=== PATIENT | female | born 1950 | race African-American/Black ===

== ENCOUNTER 2019-10-16 13:18 | Outpatient (CLI) | payer MEDICARE, OTHER, SELFPAY ==
[2019-10-16 14:42] LABS: Albumin Level 3.7 g/dL (3.5-5.1); Anion Gap 6 mmol/L (8-16); Blood Urea Nitrogen 46 mg/dL (7-17); Carbon Dioxide 32 mmol/L (22-30); Chloride 103 mmol/L (98-107); Estimated Glomerular Filt Rate 23; Glucose 242 mg/dL (65-105); Phosphorus 3.9 mg/dL (2.5-4.5); Potassium 3.9 mmol/L (3.4-5.0); Sodium 141 mmol/L (137-145)
[2019-10-16 14:56] LABS: Creatinine Urine 34.5 mg/dL
[2019-10-16 15:22] LABS: Total Protein Urine Random 255 mg/dL
== END 2019-10-16 13:19 | disposition home or self-care (01) ==
PROVIDERS: PCP Family Medicine; Visit Provider Internal Medicine Nephrology
DX: N18.3 Chronic kidney disease, stage 3 (moderate) (principal)
CPT/HCPCS: 36415; 80069; 82570; 84156

== ENCOUNTER 2020-01-14 13:34 | Outpatient (CLI) | payer MEDICARE, OTHER, SELFPAY ==
[2020-01-14 14:16] LABS: Creatinine Urine 47.2 mg/dL
[2020-01-14 14:18] LABS: Albumin Level 3.8 g/dL (3.5-5.1); Anion Gap 6 mmol/L (8-16); Blood Urea Nitrogen 39 mg/dL (7-17); Calcium 9.3 mg/dL (8.4-10.2); Carbon Dioxide 29 mmol/L (22-30); Chloride 105 mmol/L (98-107); Estimated Glomerular Filt Rate 30; Glucose 323 mg/dL (65-105); Phosphorus 3.7 mg/dL (2.5-4.5); Potassium 4.4 mmol/L (3.4-5.0); Sodium 140 mmol/L (137-145)
[2020-01-14 14:27] LABS: Total Protein Urine Random 261 mg/dL
== END 2020-01-14 13:35 | disposition home or self-care (01) ==
LOC: ANHLAB 13:39
PROVIDERS: PCP Family Medicine; Visit Provider Internal Medicine Nephrology
DX: N18.4 Chronic kidney disease, stage 4 (severe) (principal)
CPT/HCPCS: 36415; 80069; 82570; 84156

== ENCOUNTER 2020-03-06 06:54 | Outpatient (NON) | payer MEDICARE, OTHER, SELFPAY ==
[2020-03-06 21:48] LABS: SARS-CoV-2 RNA PCR Negative
== END 2020-03-06 06:55 ==
LOC: ANHCOVIDDT 06:59
PROVIDERS: PCP Family Medicine; Visit Provider Nurse Practitioner Adult Health
DX: R68.89 Other general symptoms and signs (principal); Z20.828 Contact with and (suspected) exposure to other viral communicable diseases
CPT/HCPCS: 87635; C9803; U0003

== ENCOUNTER 2020-03-25 19:30 | Inpatient (IN) | payer MEDICARE, OTHER, SELFPAY ==
[2020-03-25] VITALS (8 sets, daily range): BP systolic 135–165; BP diastolic 83–111; PULSE 111–136; RESP 14–32; TEMP 36.6–37; O2SAT 94–98; BMI 51.3
--- NOTE | ~2020-03-25 | XR_ITS ---
EXAMINATION: XR chest 1V portable INDICATION: Shortness of breath and weakness TECHNIQUE: Portable AP chest at 1957 hours COMPARISON: 02/13/2018 FINDINGS: There are patchy interstitial and airspace opacities throughout all lung zones. No pleural effusion or pneumothorax is identified. The cardiomediastinal silhouette is normal for technique. The visualized osseous structures are unremarkable. IMPRESSION: 1. Diffuse lung disease, consistent with pneumonia and/or pulmonary edema and/or atelectasis. Reviewed, dictated and finalized at location A. BUSINESS OBJECTS DEVELOPER IMPRESSION: 1. Diffuse lung disease, consistent with pneumonia and/or pulmonary edema and/o r atelectasis.
--- NOTE | ~2020-03-25 | US_ITS ---
EXAMINATION: US renal BI EXAM DATE: 03/28/2020 08:34 INDICATION: Chronic kidney disease. TECHNIQUE: Multiple grayscale and Doppler images of the kidneys were obtained (by a technologist who performed the scan) and subsequently reviewed. Comparison is made to prior examination from 11/29/2017 . FINDINGS: Right kidney: There is normal contour and echogenicity. It measures 11.0 x 4.4 x 5.7 centimeters. An echoic right renal cystic lesion most likely cyst measuring 5.7 x 3.6 x 3.5 cm. There is no hydrone phrosis. Left kidney: There is normal contour and echogenicity. It measures 10.7 x 6.4 x 5.5 centimeters. Th ere are no focal renal lesions identified. There is no hydronephrosis. Bladder unremarkable. Bilateral ureteral jets were identified. IMPRESSION: 1. Right renal lesion most likely cysts. Reviewed, dictated and finalized at location A. POINTER HELPER
--- NOTE | 2020-03-25 19:42 | ECG_ITS ---
Measurements Intervals [place] Rate: 138 P: MT: 0 QRS: 21 QRSD: 88 T: -12 QT: 364 QTc: 553 Interpretive Statements ATRIAL FIBRILLATION WITH RAPID VENTRICULAR RESPONSE INCOMPLETE RIGHT BUNDLE BRANCH BLOCK BORDERLINE T WAVE ABNORMALITY- INFERIOR LEADS ABNORMAL ECG Electronically Signed On 03-25-2020 21:46:44 MACHINE UMBRELLA TIPPER by Garrett Bucio D.O.
--- NOTE | 2020-03-25 19:44 | ED.GENADULT ---
HPI - General Adult General Chief complaint: Arrhythmia/Palpitations Stated complaint: weakness, elevated pulse, low o2 Source: patient History of Present Illness HPI narrative: Patient is a 69 y/o female complaining fast pulse rate for about 1 week. She states that her heart rate goes to 140s. There is no alleviating or exacerbating factor. She also has some slight chest pain and SOB. She states that her home pulse shows her sat is low sometimes in 80s. She states that she has history A fib. Related Data Home Medications Medication Instructions Recorded Confirmed aspirin 81 mg tablet,delayed 81 mg PO DAILY 03/08/19 07/02/19 release ferrous sulfate 325 mg (65 mg 325 mg PO BID 03/08/19 07/02/19 iron) tablet furosemide 40 mg tablet 40 mg PO QAM 03/08/19 07/02/19 insulin aspar prot-insulin aspart 5 unit SUB-Q BID 03/08/19 07/02/19 100 unit/mL (70-30) subcutaneous pen insulin glargine 100 unit/mL (3 30 unit SUB-Q DAILY 03/08/19 07/02/19 mL) subcutaneous pen simvastatin 20 mg tablet 20 mg PO DAILY 03/08/19 07/02/19 brimonidine 0.2 %-timolol 0.5 % 1 drop EACH EYE Q12H 05/01/19 07/02/19 eye drops rivaroxaban 20 mg tablet 20 mg PO DAILY 05/01/19 07/02/19 losartan 100 mg tablet 150 mg PO DAILY tablet 07/02/19 07/02/19 alendronate-vitamin D3 03/25/20 irbesartan 300 mg PO DAILY 03/25/20 03/25/20 metoprolol tartrate 50 mg PO BID 03/25/20 03/25/20 Allergies Allergy/AdvReac Type Severity Reaction Status Date / Time lisinopril Allergy Unknown dizziness Verified 07/02/19 13:20 clopidogrel AdvReac Intermediate unkn own Verified 07/02/19 13:20 Review of Systems Constitutional: Constitutional: Denies chills, Denies fever(s), Denies headache(s) and Denies weakness Eyes: Eyes: Denies blurry vision ENT: Denies headache(s) and Denies neck pain Cardiovascular: Cardiovascular: Reports chest pain, Reports rapid heart rate and Reports dyspnea Respiratory: Respiratory: Denies cough and Reports dyspnea Gastrointestinal: Gastrointestinal: Denies abdominal pain, Denies diarrhea, Denies nausea and Denies vomiting Genitourinary: Genitourinary: Denies hematuria and Denies dysuria Musculoskeletal: Musculoskeletal: Denies back pain and Denies neck pain Neurologic: Denies headache(s) and Denies weakness [facility] Past Medical History Medical History Arthritis Diabetes mellitus Essential hypertension Glaucoma H/O: HTN (hypertension) History of glucose tolerance testing Family History Family History Mother , heart attack Diabetes mellitus Father Diabetes mellitus Cerebrovascular accident Leukemia Social History Social History Smoking status: Never smoker Exam Const: General: no acute distress and well developed Orientation/consciousness: oriented to person, oriented to place, oriented to time and patient oriented x3 HENMT: Head: normocephalic Ears: external ears normal General nose exam: Normal external nose present Eyes: General: appearance normal, both eyes and all related structures Conjunctivae: conjunctivae normal Neck: Neck: normal visual inspection and full ROM Chest: Chest palpation & inspection: normal inspection of the chest and no tenderness Resp: Effort & Inspection: normal respiratory effort Auscultation: clear to auscultation bilaterally Cardio: Rate: tachycardic Rhythm: abnormal rhythm irregularly irregular GI: GI Palp: No abdominal tenderness and Yes Soft to palpation Skin: General skin exam: normal color and turgor normal Neuro: General: oriented to person, oriented to place, oriented to time and patient oriented x3 Cognition (Neuro): normal cognition Extrem: General: normal to inspection, full ROM and no pedal edema Psych: Appearance: grossly normal Mental Status: mental status grossly n
[2020-03-25] MEDS: dilTIAZem HCl INJ 25 MG/5 ML VIAL 10 MG IV PUSH (20:05)
[2020-03-25 20:10] LABS: Basophils Percent Auto 0.1 % (0.2-1.2); Eosinophils Absolute Auto 0.1 K/mm3 (0-0.3); Eosinophils Percent Auto 0.7 % (0-4.4); Hematocrit 37.7 % (37.0-47.0); Hemoglobin 12.1 g/dL (12.0-15.0); Immature Granulocyte Absolute 0.02 K/mm3 (0.00-0.031); Immature Granulocyte Percent A 0.3 % (0-0.5); Lymphocytes Absolute Auto 1.13 K/mm3 (0.9-3.2); Lymphocytes Percent Auto 16.8 % (18.3-44.2); Mean Corpuscular HGB Conc 32.1 g/dl (32-36); Mean Corpuscular Hemoglobin 25.7 pg (26-34); Mean Corpuscular Volume 80.2 fl (80-100); Mean Platelet Volume 10.5 fl (7.4-10.4); Monocytes Absolute Auto 0.6 K/mm3 (0.1-0.6); Monocytes Percent Auto 8.6 % (2.6-8.5); Neutrophils Absolute Auto 4.9 K/mm3 (1.3-6.7); Neutrophils Percent Auto 73.5 % (45.5-73.1); Platelet Count Result 173 k/mm3 (150-375); Red Cell Distribution Width 14.3 % (11.5-14.5); White Blood Count 6.7 K/mm3 (4.5-10.0)
[2020-03-25 20:20] LABS: INR 1.2; Prothrombin Time 15.4 Seconds (11.1-14.7)
[2020-03-25 20:21] LABS: Partial Thromboplastin Time 27.4 SECONDS (22.3-36.8)
[2020-03-25 20:25] LABS: Alanine Aminotransferase 24 U/L (4-35); Albumin Level 3.6 g/dL (3.5-5.1); Alkaline Phosphatase 83 U/L (38-126); Anion Gap 7 mmol/L (8-16); Aspartate Amino Transferase 20 U/L (14-36); Bilirubin,Total 0.7 mg/dL (0.2-1.3); Blood Urea Nitrogen 43 mg/dL (7-17); Calcium 9.8 mg/dL (8.4-10.2); Carbon Dioxide 26 mmol/L (22-30); Chloride 106 mmol/L (98-107); Estimated CRCL calculation 35 ml/min; Estimated Glomerular Filt Rate 30; Glucose 320 mg/dL (65-105); Potassium 3.9 mmol/L (3.4-5.0); Sodium 139 mmol/L (137-145)
[2020-03-25 20:37] LABS: NT Pro B Type Natriuretic Pept 8130 PG/ML (5-100); Troponin I < 0.012 ng/mL (0.000-0.034)
--- NOTE | 2020-03-25 21:25 | PM.IMHP ---
H&P: HPI History of Present Illness Date/Time: 03/25/20 21:25 Chief Complaint: Elevated heart rate for 1 week duration Narrative: This is a pleasant 69 year old diabetic female with known chronic atrial fibrillation on Xarelto therapy, CKD stage III, and HTN who presented to the hospital with a complaint of elevated heart rate for one week duration. She has noticed that her heart rate has been as high as the 140s at rest. She has also noticed increased peripheral swelling and worsening shortness of breath over the past few weeks. She has severe dyspnea with any exertion and mentions that just going to the bathroom leads to increased shortness of breath and tachycardia. Over the past weekend she also experienced midsternal chest pain although this has now resolved. She denies any fevers, chills, coughing, sore throat, headache, nausea, vomiting, abdominal pain, dysuria, diarrhea, or rectal bleeding. The patient was started on Cardizem IV for rate control in the ER tonight after she was found to be in atrial fibrillation w/ RVR. She was also treated with a dose of IV lasix and swabbed for COVID-19. No other complaints. Review of Systems Review of Systems: All systems reviewed & are unremarkable except as noted in HPI and below PMFSH Past Medical History Medical History Arthritis Diabetes mellitus Essential hypertension Glaucoma H/O: HTN (hypertension) History of glucose tolerance testing Family History Family History Mother , heart attack Diabetes mellitus Father Diabetes mellitus Cerebrovascular accident Leukemia Social History Social History Smoking status: Never smoker Alcohol intake: never Substance use: never Spiritual care concerns: No Comments Denies any previous surgeries Meds Home Medications and Allergies Home Medications Medication Instructions Recorded Confirmed Type aspirin 81 mg tablet,delayed 81 mg PO DAILY 03/08/19 03/25/20 History release ferrous sulfate 325 mg (65 mg 325 mg PO BID 03/08/19 03/25/20 History iron) tablet furosemide 40 mg tablet 40 mg PO QAM 03/08/19 03/25/20 History insulin aspar prot-insulin aspart 20 unit SUB-Q BID 03/08/19 03/25/20 History 100 unit/mL (70-30) subcutaneous pen insulin glargine 100 unit/mL (3 30 unit SUB-Q DAILY 03/08/19 03/25/20 History mL) subcutaneous pen simvastatin 20 mg tablet 20 mg PO DAILY 03/08/19 03/25/20 History brimonidine 0.2 %-timolol 0.5 % 1 drop EACH EYE Q12H 05/01/19 03/25/20 History eye drops rivaroxaban 20 mg tablet 20 mg PO DAILY 05/01/19 03/25/20 History losartan 100 mg tablet 150 mg PO DAILY tablet 07/02/19 03/25/20 History irbesartan 300 mg PO DAILY 03/25/20 03/25/20 History metoprolol tartrate 50 mg PO BID 03/25/20 03/25/20 History Allergies Allergy/AdvReac Type Severity Reaction Status Date / Time lisinopril Allergy Unknown dizziness Verified 07/02/19 13:20 clopidogrel AdvReac Intermediate unkn own Verified 07/02/19 13:20 Vital Signs Vital Signs - 24 hr 03/25/20 19:40 03/25/20 20:06 03/25/20 20:26 Temperature 37.0 C Pulse Rate 134 H 131 H 111 H Respiratory Rate 14 22 H Blood Pressure 165/111 H 165/111 H 135/83 Pulse Oximetry 98 98 Exam Const: General: cooperative, no acute distress, alert, awake and ill appearing chronically Nutritional Appearance: well nourished Orientation/consciousness: patient oriented x3 HENMT: Head: normal to inspection General nose exam: Normal external nose present Face and sinus: normal facial exam Mouth: Yes Normal oral and palatal mucosa present and Yes oropharynx normal Eyes: Pupils: Equal, round and reactive pupils present EOM: EOMs intact bilaterally Neck: Neck: supple and no JVD Thyroid: thyroid normal Lymphatic: lymphadenopathy not not
[2020-03-25] MEDS: FUROSEMIDE INJ 40 MG/4 ML VIAL IV PUSH (22:39)
--- NOTE | 2020-03-25 23:26 | ADMGEN ---
This patient, Shaniqua Oakley, was admitted to IMU Room 203-01, arrived at approximately 2320 Patient/family oriented to hospital policies and general routines including ID bracelet, bed and alarms, visiting hours, pain management, procedures, bathroom and other care routines, personal items, smoking policy, room service/diet, and visiting hours. Information on how to activate the Rapid Response Team has been discussed. Patient/Family are encouraged to report perceived risks to care and to ask questions if they do not understand what they are told or what they should do. Received report from TARSHA Patel
[2020-03-26] VITALS (20 sets, daily range): BP systolic 102–133; BP diastolic 59–77; PULSE 68–138; RESP 16–22; TEMP 35.8–37.2; O2SAT 95–100
[2020-03-26 00:13] LABS: Troponin I < 0.012 ng/mL (0.000-0.034)
[2020-03-26 03:02] LABS: Basophils Percent Auto 0.3 % (0.2-1.2); Eosinophils Absolute Auto 0.1 K/mm3 (0-0.3); Eosinophils Percent Auto 1.3 % (0-4.4); Hematocrit 35.3 % (37.0-47.0); Hemoglobin 11.4 g/dL (12.0-15.0); Immature Granulocyte Absolute 0.03 K/mm3 (0.00-0.031); Immature Granulocyte Percent A 0.4 % (0-0.5); Lymphocytes Absolute Auto 1.24 K/mm3 (0.9-3.2); Lymphocytes Percent Auto 17.9 % (18.3-44.2); Mean Corpuscular HGB Conc 32.3 g/dl (32-36); Mean Corpuscular Hemoglobin 25.7 pg (26-34); Mean Corpuscular Volume 79.7 fl (80-100); Mean Platelet Volume 11.4 fl (7.4-10.4); Monocytes Absolute Auto 0.5 K/mm3 (0.1-0.6); Monocytes Percent Auto 7.8 % (2.6-8.5); Neutrophils Percent Auto 72.3 % (45.5-73.1); Platelet Count Result 168 k/mm3 (150-375); Red Blood Count 4.43 M/mm3 (4.2-5.4); Red Cell Distribution Width 14.3 % (11.5-14.5); White Blood Count 6.9 K/mm3 (4.5-10.0)
[2020-03-26 03:16] LABS: Anion Gap 6 mmol/L (8-16); Blood Urea Nitrogen 43 mg/dL (7-17); Calcium 9.1 mg/dL (8.4-10.2); Carbon Dioxide 28 mmol/L (22-30); Chloride 106 mmol/L (98-107); Estimated CRCL calculation 35 ml/min; Estimated Glomerular Filt Rate 30; Glucose 365 mg/dL (65-105); Magnesium 1.8 mg/dL (1.6-2.3); Potassium 3.8 mmol/L (3.4-5.0); Sodium 140 mmol/L (137-145)
[2020-03-26 03:28] LABS: Troponin I < 0.012 ng/mL (0.000-0.034)
[2020-03-26 04:19] LABS: Thyroid Stimulating Hormone Reflex < 0.015 uIU/mL (0.465-4.68)
[2020-03-26 05:13] LABS: Free T4 Free Thyroxine Reflex 5.47 ng/dL (0.78-2.19)
[2020-03-26 05:40] LABS: Glucose Point of Care 393 (65-105)
[2020-03-26] MEDS: ACETAMINOPHEN 325 MG TABLET 650 MG PO (06:45)
[2020-03-26] MEDS: FUROSEMIDE INJ 40 MG/4 ML VIAL IV PUSH (09:08)
[2020-03-26] MEDS: ASPIRIN 81 MG ENTERIC TABLET PO (09:08)
[2020-03-26] MEDS: FERROUS SULFATE 324 MG TABLET PO ×2 (09:08→16:29)
[2020-03-26] MEDS: SIMVASTATIN 20 MG TABLET PO (09:08)
[2020-03-26 09:46] LABS: Glucose Point of Care 344 (65-105)
--- NOTE | 2020-03-26 10:15 | PM.CNCAR ---
Assessment and Plan Additional Plan 69-year-old black female with: Longstanding history of paroxysmal atrial fibrillation. Up till this point the plan that Dr. Gambino has had in the office was to pursue rhythm control rather than simple rate control. She is currently on metoprolol and Xarelto and in atrial fib that seems to be persistent since she has been in the hospital. I am going to attempt to transition her to oral sotalol in hopes of better controlling her rhythm. In the setting of AFib that is driven by untreated sleep apnea the success of achieving and maintaining sinus rhythm is however significantly reduced. I did explain this to the patient at the time of this consultation. She says that she is getting a CPAP cleaning device delivered to her home soon and will hopefully be able to soon resume using her CPAP therapy. We will follow her rhythm with you during this hospital stay. Obviously she needs to be maintained on Xarelto for systemic anticoagulation. Eric Hall MD [facility] History of Present Illness History of Present Illness Consult date/time: 03/26/20 10:15 Consult reason: atrial fibrillation Reason For Visit: a fib with rvr Narrative: This is a 69-year-old patient I am seeing at the request of the hospitalist for assistance with evaluation and management of atrial fibrillation. I do not believe I have seen this lady in the past but she is a chronic longstanding patient of Dr. Gambino of our practice. She is seen and followed in the office because of atrial fibrillation. She carries the diagnosis of paroxysmal atrial fibrillation which upon extensive workup has been shown to be the result of obstructive sleep apnea/obesity. The patient has a established history of this and has not really been compliant with CPAP treatment. The notes in the current hospital chart referred to the patient having chronic atrial fibrillation at the current time her diagnosis in our office has been paroxysmal atrial fibrillation. The patient was last seen in our office in February of 2020 and at that time was in sinus rhythm. A recent Holter monitor demonstrated evidence of mostly sinus rhythm but with evidence of some paroxysmal AF as well. Her current medical regimen has been metoprolol and Xarelto. Echocardiography done as recently as October of 2019 demonstrates normal left ventricular size and function she has moderate global concentric LVH and no significant valvular disease. She has no history of ischemic heart disease. Patient was hospitalized last evening with sense of tachycardia palpitations and increasing shortness of breath. She was placed of course on intravenous diltiazem to attempt to provide some heart rate control her baseline metoprolol was not prescribed. In the past the records indicate she was treated with amiodarone for her rhythm which was discontinued in the last year or so after being seen in the office by the nurse practitioner. The notes do not specify this reason for the discontinuance of the amiodarone. In this setting I am seeing the patient in consultation she is pleasant cooperative and comfortable and offers no other complaints currently. She appears to be in no distress of any sort at the moment Review of Systems Constitutional: Constitutional: Reports lethargy Eyes: Eyes: Reports no additional eye complaints ENT: Reports system reviewed and no additional complaints, except as documented Cardiovascular: Cardiovascular: Reports palpitations Respiratory: Respiratory: Reports dyspnea Gastrointestinal: Gastrointestinal: Reports diarrhea Musculoskeletal: Musculoskeletal: Reports no additional musculoskeletal complaints Integumentary/Breasts: Skin/Breast: Reports system reviewed and no additional complaints, except as docu Neurologic: Reports system reviewed and no additional complaints, except as documented Endocrine: Endocrine: Reports no additional endocrine complaints Allergic/Immunologic: All
[2020-03-26] MEDS: SOTALOL HCL 80 MG TABLET PO ×2 (11:33→20:29)
[2020-03-26] MEDS: INSULIN ASPART (*BKC) 100 UNITS/ML SUB-Q ×2 (12:35→16:30)
[2020-03-26 12:44] LABS: Glucose Point of Care 400 (65-105)
--- NOTE | 2020-03-26 14:08 | ECG_ITS ---
Measurements Intervals [place] Rate: 113 P: IA: 0 QRS: 48 QRSD: 86 T: 12 QT: 349 QTc: 479 Interpretive Statements ATRIAL FIBRILLATION WITH RAPID VENTRICULAR RESPONSE INCOMPLETE RIGHT BUNDLE BRANCH BLOCK NONSPECIFIC ST & T-WAVE ABNORMALITY- DIFFUSE LEADS ABNORMAL ECG Electronically Signed On 03-26-2020 15:07:59 CLINICAL HAEMATOLOGIST by Garrett Bucio D.O.
[2020-03-26] MEDS: RIVAROXABAN 20 MG TABLET PO (16:29)
--- NOTE | 2020-03-26 16:56 | PM.IMPN ---
Progress Note: A&P Assessment and Plan (1) Atrial fibrillation with rapid ventricular response: Code(s): I48.91 - Unspecified atrial fibrillation Status: Acute Assessment and Plan: On Telemetry Holter monitoring done recently Appreciate Cardiology note. (2) CKD (chronic kidney disease): Qualifiers: Chronic kidney disease stage: unspecified stage Qualified Code(s): N18.9 - Chronic kidney disease, unspecified Code(s): N18.9 - Chronic kidney disease, unspecified Status: Acute Assessment and Plan: Continue to monitor Bun/Cr Daily BMP Avoid nephrotoxins (3) Suspected 2019 novel coronavirus infection: Code(s): Z20.822 - Contact with and (suspected) exposure to COVID-19 Status: Acute Assessment and Plan: Ruling out serology is pending. (4) Essential hypertension: Code(s): I10 - Essential (primary) hypertension Status: Chronic Assessment and Plan: Resume home meds Continue to monitor. (5) Body mass index (BMI) of 50-59.9 in adult: Onset Date: 11/27/18 Code(s): Z68.43 - Body mass index [BMI] 50.0-59.9, adult Status: Acute Assessment and Plan: Calorie restricted diet Life style and diet modifications. (6) Diastolic CHF: Qualifiers: Heart failure chronicity: acute on chronic Qualified Code(s): I50.33 - Acute on chronic diastolic (congestive) heart failure Code(s): I50.30 - Unspecified diastolic (congestive) heart failure Status: Acute Assessment and Plan: Does not appear to be decompensated. (7) Pulmonary hypertension: Code(s): I27.20 - Pulmonary hypertension, unspecified Status: Acute Assessment and Plan: Patient on CPAP (8) KIERRA (obstructive sleep apnea): Code(s): G47.33 - Obstructive sleep apnea (adult) (pediatric) Status: Acute Assessment and Plan: CPAP at night time (9) Restrictive lung disease: Code(s): J98.4 - Other disorders of lung Status: Acute Assessment and Plan: Morbid obesity Lifestyle and diet modifications. Subjective Date/time seen: 03/26/20 16:56 I feel fine. Review of Systems Review of Systems: Narrative: Denies any complains at this time. Constitutional: Comments: no fevers, no chills, no rigors. ENT: Comments: no ear ache, no throat pain, no nasal discharge. Cardiovascular: Comments: Fast heart rate, chest discomfort. Respiratory: Comments: sob. Gastrointestinal: Comments: no n/v/abdominal pain. Musculoskeletal: Comments: no muscle aches or pain. Integumentary/Breasts: Comments: no rashes. Neurologic: Comments: no sensory motor deficit. Exam Narrative: Exam Narrative: Lying in bed. Const: General: comfortable, no acute distress, alert, awake and Physically active Nutritional Appearance: overweight Orientation/consciousness: patient oriented x3 Limitations: no limitations HENMT: Head: normocephalic Ears: hearing grossly normal bilaterally General nose exam: Normal external nose present Face and sinus: normal facial exam Eyes: General: appearance normal, both eyes and all related structures Pupils: Equal, round and reactive pupils present EOM: EOMs intact bilaterally Neck: Neck: no lymphadenopathy, supple and no JVD Resp: Effort & Inspection: normal respiratory effort Auscultation: clear to auscultation bilaterally Cardio: Jugular venous distension: no JVD Rhythm: abnormal rhythm irregularly irregular GI: GI Palp: Yes Soft to palpation and Yes No hepatosplenomegaly present Skin: Rashes: no rashes Neuro: General: patient oriented x3 Cranial nerves: Yes CN's II-XII intact bilaterally and Yes Equal, round and reactive pupils present Cognition (Neuro): normal cognition Speech: normal speech Motor exam (neuro): 5/5 motor strength present throughout Extrem: General: no pedal edema Objective Data Vital Signs Vital Signs: Vital Signs - 24 hr 03/25/20
[2020-03-26 17:28] LABS: SARS-CoV-2 RNA PCR Negative
[2020-03-26 17:59] LABS: Glucose Point of Care 225 (65-105)
[2020-03-26 20:45] LABS: Glucose Point of Care 199 (65-105)
[2020-03-26 21:51] LABS: Glucose Point of Care 189 (65-105)
[2020-03-27] VITALS (15 sets, daily range): BP systolic 120–152; BP diastolic 57–71; PULSE 55–115; RESP 18–24; TEMP 36.2–36.6; O2SAT 92–97
--- NOTE | 2020-03-27 | ECHO_ITS ---
Patient Info Name: Shaniqua Oakley Age: 69 years : 1950 Gender: Female Ht: 65 in Wt: 308 lbs BSA: 2.62 m2 HR: 70 bpm BP: 120 / 57 mmHg Heart Rhythm: Sinus Rhythm Technical Quality: Good Exam Date: 03/27/2020 8:27 AM Exam Location: [facility] Patient Status: Inpatient Admit Date: 03/25/2020 Staff Ordering Physician: Charles Miranda MD Plastic Sheets Supervisor: Benjie Wylie RDCS, RT Attending Provider: Charles Miranda MD Referring Physician: Ruth ELIZONDO; Exam Type: CA echo doppler color flow Study Info Indications I48.1 - Persistent atrial fibrillation Complete two-dimensional, color flow and Doppler transthoracic echocardiogram is performed. Summary 1. Complete two-dimensional, color flow and Doppler transthoracic echocardiogram is performed. 2. Normal left ventricular size with mild concentric left ventricular hypertrophy. Normal left ventricular systolic function with a visual ejection fraction 55-60% and a calculated ejection fraction of 55%. No segmental wall motion abnormalities. Grade 2 diastolic dysfunction is present. 3. Left atrial chamber dimension is mildly enlarged. 4. There is moderate mitral valve regurgitation. 5. There is moderate tricuspid valve regurgitation. 6. Moderate pulmonary hypertension, estimated pulmonary arterial systolic pressure is 56 mmHg. 7. Dilated inferior vena cava with <50% collapse upon inspiration consistent with elevated right atrial pressure, 15 mmHg. 8. Technically difficult study; the endocardium was not well seen in all views. 9. Normal sinus rhythm. Left Ventricle Left ventricular chamber dimension is normal. Left ventricular systolic function is normal, estimated at 55-60%. There is mildly increased left ventricular wall thickness. Left ventricular septal wall motion is normal. The left ventricular diastolic function is grade II diastolic dysfunction. Right Ventricle Right ventricular chamber dimension is normal. Right ventricular systolic function is normal. Left Atria Left atrial chamber dimension is mildly enlarged. Right Atria Right atrial chamber dimension is normal. Aortic Valve The aortic valve is trileaflet. There is mild aortic valve sclerosis. There is no aortic valve stenosis. There is no aortic valve regurgitation. Pulmonic Valve The pulmonic valve is normal. There is no pulmonic valve stenosis. There is trace pulmonic regurgitation. Mitral Valve The mitral valve has calcified annulus. There is no mitral valve stenosis. There is moderate mitral valve regurgitation. Tricuspid Valve The tricuspid valve leaflets are normal. There is no significant tricuspid valve stenosis. There is moderate tricuspid valve regurgitation. Moderate pulmonary hypertension, estimated pulmonary arterial systolic pressure is 56 mmHg. Pericardium/Pleural The pericardium appears normal. There is no pericardial effusion. Inferior Vena Cava Dilated inferior vena cava with <50% collapse upon inspiration consistent with elevated right atrial pressure, 15 mmHg. Aorta The aortic root size at the sinus of Valsalva is normal. The prox ascending aorta size is normal. Left Ventricular Outflow Tract Name Value Normal LVOT 2D LVOT Diameter
--- NOTE | 2020-03-27 02:43 | ECG_ITS ---
Measurements Intervals [place] Rate: 67 P: 36 AR: 173 QRS: 33 QRSD: 94 T: 13 QT: 444 QTc: 471 Interpretive Statements SINUS RHYTHM ATRIAL PREMATURE COMPLEX INCOMPLETE RIGHT BUNDLE BRANCH BLOCK NONSPECIFIC T-WAVE ABNORMALITY- ANT/INF LEADS BASELINE ARTIFACT- V4 BORDERLINE ECG Electronically Signed On 03-27-2020 10:29:57 REVIEW NURSE by Garrett Bucio D.O.
--- NOTE | 2020-03-27 07:00 | ECG_ITS ---
Measurements Intervals [place] Rate: 115 P: [place]: 0 QRS: 58 QRSD: 90 T: 27 QT: 364 QTc: 504 Interpretive Statements ATRIAL FIBRILLATION WITH RAPID VENTRICULAR RESPONSE INCOMPLETE RIGHT BUNDLE BRANCH BLOCK NONSPECIFIC T-WAVE ABNORMALITY- DIFFUSE LEADS ABNORMAL ECG Electronically Signed On 03-27-2020 10:26:01 SPOOL MAKER by Garrett Bucio D.O.
--- NOTE | 2020-03-27 09:40 | PM.PNCARD ---
Progress Note: A&P Assessment and Plan (1) Atrial fibrillation with rapid ventricular response: Code(s): I48.91 - Unspecified atrial fibrillation Status: Acute Assessment and Plan: Was started on sotalol 80 mg b.i.d.. She was started on the sotalol on 03/26 Next does this morning. Order EKG before giving the sotalol this morning. I will measure the QTC interval this morning. on review of telemetry She had a 3.6 seconds pause at 3:00 a.m. this morning. I believe it is related to sleep apnea. She will need CPAP at night. She has CPAP at home but has not used it for a year. Continue Xarelto (2) CHF (congestive heart failure): Qualifiers: Heart failure chronicity: unspecified Heart failure type: unspecified Qualified Code(s): I50.9 - Heart failure, unspecified Code(s): I50.9 - Heart failure, unspecified Status: Acute Assessment and Plan: Continue IV Lasix. Obtain electrolytes and magnesium check. (3) Essential hypertension: Code(s): I10 - Essential (primary) hypertension Status: Chronic Assessment and Plan: Blood pressure is controlled. She used to take irbesartan (4) KIERRA (obstructive sleep apnea): Code(s): G47.33 - Obstructive sleep apnea (adult) (pediatric) Status: Acute Assessment and Plan: Encourage CPAP use Subjective Date/time seen: 03/27/20 09:40 Review of Systems Constitutional: Constitutional: Reports lethargy Eyes: Eyes: Reports no additional eye complaints ENT: Reports system reviewed and no additional complaints, except as documented Cardiovascular: Cardiovascular: Reports palpitations and Reports dyspnea Respiratory: Respiratory: Reports dyspnea Gastrointestinal: Gastrointestinal: Reports diarrhea Musculoskeletal: Musculoskeletal: Reports no additional musculoskeletal complaints Integumentary/Breasts: Skin/Breast: Reports system reviewed and no additional complaints, except as docu Neurologic: Reports system reviewed and no additional complaints, except as documented Endocrine: Endocrine: Reports no additional endocrine complaints and Reports palpitations Allergic/Immunologic: Allergic/Immunologic: Reports no additional allergic/immunologic complaints Exam Const: General: comfortable and no acute distress Other: Morbidly obese black female comfortable cooperative in no distress of any sort BMI is 51.4 HENMT: Mouth: Yes moist mucous membranes Eyes: Sclera: sclerae normal Pupils: Equal, round and reactive pupils present Neck: Neck: no JVD Thyroid: thyroid normal Other: Carotid upstrokes are intact there are no bruits audible over the neck Resp: Effort & Inspection: normal respiratory effort Auscultation: clear to auscultation bilaterally Other: Breath sounds are distant because of her body habitus but otherwise clear no rales no rhonchi no wheezing Cardio: Rhythm: abnormal rhythm irregularly irregular GI: Auscultation: normal bowel sounds Skin: General skin exam: normal color Neuro: Cranial nerves: Yes Equal, round and reactive pupils present Cognition (Neuro): normal cognition Extrem: General: normal to inspection Objective Data Vital Signs Vital Signs: Vital Signs - 24 hr 03/26/20 09:44 03/26/20 10:00 03/26/20 11:33 Temperature Pulse Rate 135 H 133 H Respiratory Rate Blood Pressure Pulse Oximetry 95 03/26/20 11:35 03/26/20 12:00 03/26/20 12:50 Temperature 37.2 C 35.8 C L Pulse Rate 132 H 132 H 125 H Respiratory Rate 16 22 H Blood Pressure 115/65 110/65 Pulse Oximetry 100 95 03/26/20 14:00 03/26/20 16:00 03/26/20 17:11 Temperature 36.0 C L Pulse Rate 118 H 112 H 111 H Respiratory Rate 22 H Blood Pressure 121/77 Pulse Oximetry 96 03/26/20 18:00 03/26/20 20:00 03/26/20 20:29 Temperature 36.7 C Pulse Rate 121 H 118 H 126 H Respiratory Rate 20 Blood Pressure 102/62 Pulse Oximetry 98 03/26/20 22:00 03/27/20 00:00 03/27
[2020-03-27 10:21] LABS: Anion Gap 5 mmol/L (8-16); Blood Urea Nitrogen 49 mg/dL (7-17); Calcium 9.6 mg/dL (8.4-10.2); Carbon Dioxide 28 mmol/L (22-30); Chloride 109 mmol/L (98-107); Estimated CRCL calculation 28 ml/min; Estimated Glomerular Filt Rate 23; Glucose 143 mg/dL (65-105); Potassium 4.2 mmol/L (3.4-5.0); Sodium 142 mmol/L (137-145)
[2020-03-27] MEDS: ASPIRIN 81 MG ENTERIC TABLET PO (10:44)
[2020-03-27] MEDS: FUROSEMIDE INJ 40 MG/4 ML VIAL IV PUSH (10:47)
[2020-03-27] MEDS: FERROUS SULFATE 324 MG TABLET PO ×2 (10:47→17:59)
[2020-03-27] MEDS: SOTALOL HCL 80 MG TABLET PO ×2 (10:48→21:11)
[2020-03-27] MEDS: SIMVASTATIN 20 MG TABLET PO (10:48)
[2020-03-27] MEDS: INSULIN GLARGINE (*BKC) 100 UNITS/ML 30 UNITS SUB-Q (11:26)
[2020-03-27] MEDS: ACETAMINOPHEN 325 MG TABLET 650 MG PO (11:35)
[2020-03-27] MEDS: INSULIN ASPART (*BKC) 100 UNITS/ML SUB-Q ×2 (12:27→18:00)
[2020-03-27 12:34] LABS: Glucose Point of Care 249 (65-105)
[2020-03-27 12:38] LABS: Glucose Point of Care 138 (65-105)
[2020-03-27 16:46] LABS: Glucose Point of Care 208 (65-105)
--- NOTE | 2020-03-27 17:01 | PM.IMPN ---
Progress Note: A&P Assessment and Plan (1) Atrial fibrillation with rapid ventricular response: Code(s): I48.91 - Unspecified atrial fibrillation Status: Acute Assessment and Plan: Started on Sotalol Cardiology following Appreciate Cardiology note (2) CKD (chronic kidney disease): Qualifiers: Chronic kidney disease stage: unspecified stage Qualified Code(s): N18.9 - Chronic kidney disease, unspecified Code(s): N18.9 - Chronic kidney disease, unspecified Status: Acute Assessment and Plan: Daily BMP Continue to monitor Bun/Cr at patient's baseline Will obtain Nephrology consult (3) CHF (congestive heart failure): Qualifiers: Heart failure chronicity: unspecified Heart failure type: unspecified Qualified Code(s): I50.9 - Heart failure, unspecified Code(s): I50.9 - Heart failure, unspecified Status: Acute Assessment and Plan: Acute exacerbation 2DECHO has been done Diuresing Likely secondary to uncontrolled heart rate (4) Suspected 2019 novel coronavirus infection: Code(s): Z20.822 - Contact with and (suspected) exposure to COVID-19 Status: Acute Assessment and Plan: Ruled out (5) Diabetes mellitus: Qualifiers: Diabetes mellitus type: type 2 Diabetes mellitus nursing home insulin use: with buttermaker helper use Diabetes mellitus complication status: with kidney complications Diabetes mellitus complication detail: with chronic kidney disease Chronic kidney disease stage: stage 3 (moderate) Chronic kidney disease stage 3 subtype: unspecified whether 3a or 3b Qualified Code(s): E11.22 - Type 2 diabetes mellitus with diabetic chronic kidney disease; N18.30 - Chronic kidney disease, stage 3 unspecified; Z79.4 - supervisor intermediates (current) use of insulin Code(s): E11.9 - Type 2 diabetes mellitus without complications Status: Chronic Assessment and Plan: Accu checks ACHS ISS as needed (6) Essential hypertension: Code(s): I10 - Essential (primary) hypertension Status: Chronic Assessment and Plan: Continue home meds Continue to monitor (7) Body mass index (BMI) of 50-59.9 in adult: Onset Date: 11/27/18 Code(s): Z68.43 - Body mass index [BMI] 50.0-59.9, adult Status: Acute Assessment and Plan: Diet and lifestyle modifications. Carb consistent diet. (8) Hypertensive chronic kidney disease with stage 1 through stage 4 chronic kidney disease, or unspecified chronic kidney disease: Code(s): I12.9 - Hypertensive chronic kidney disease with stage 1 through stage 4 chronic kidney disease, or unspecified chronic kidney disease Status: Acute Assessment and Plan: Obtaining kidney US (9) Diastolic CHF: Qualifiers: Heart failure chronicity: acute on chronic Qualified Code(s): I50.33 - Acute on chronic diastolic (congestive) heart failure Code(s): I50.30 - Unspecified diastolic (congestive) heart failure Status: Acute Assessment and Plan: Diuresing I/O's (10) KIERRA (obstructive sleep apnea): Code(s): G47.33 - Obstructive sleep apnea (adult) (pediatric) Status: Acute Assessment and Plan: Non compliant with CPAP Ordered CPAP at bedtime (11) Restrictive lung disease: Code(s): J98.4 - Other disorders of lung Status: Acute Assessment and Plan: Secondary to morbid obesity Reviewed records PFT's Subjective Date/time seen: 03/27/20 17:01 I feel fine. Review of Systems Review of Systems: Narrative: Fast heart rate, no new issues overnight. Constitutional: Comments: no fever, no rigors, no chills. Eyes: Comments: no vision changes. Cardiovascular: Comments: fast pulse Respiratory: Comments: sob Gastrointestinal: Comments: no n/v/abdominal pain. Musculoskeletal: Comments: B/L LE ankle swelling. Integumentary/Breasts: Comments: no rashes. Neurologic: Comments: no sens
[2020-03-27] MEDS: RIVAROXABAN 20 MG TABLET PO (17:59)
[2020-03-27 20:35] LABS: Glucose Point of Care 287 (65-105)
[2020-03-28] VITALS (15 sets, daily range): BP systolic 101–151; BP diastolic 47–73; PULSE 55–62; RESP 18–98; TEMP 36.1–36.5; O2SAT 18–98; BMI 51.3
--- NOTE | 2020-03-28 07:49 | ECG_ITS ---
Measurements Intervals [place] Rate: 56 P: 37 [place]: 168 QRS: 41 QRSD: 88 T: 36 QT: 452 QTc: 440 Interpretive Statements SINUS BRADYCARDIA WITH SINUS ARRHYTHMIA INCOMPLETE RIGHT BUNDLE BRANCH BLOCK BASELINE ARTIFACT- I, II, III, AVR, AVL, AVF, V1 BORDERLINE ECG Electronically Signed On 03-28-2020 9:17:47 [employer] by Garrett Bucio D.O.
--- NOTE | 2020-03-28 08:02 | PM.PNCARD ---
Progress Note: A&P Additional Plan 69-year-old lady with: Paroxysmal atrial fibrillation which is likely the result of morbid obesity/untreated sleep apnea. Patient has converted to sinus rhythm medically with sotalol she is tolerating the antiarrhythmic agent without any problems and from the cardiac perspective is appropriate for discharge at this time. I will ensure that she has appropriate office follow-up scheduled with Dr. Maki Hall MD [facility] Subjective Date/time seen: Date of service: 03/28/20 08:02 Interval history: Follow-up visit in this 69-year-old lady with: Paroxysmal atrial fibrillation being treated chronically with metoprolol transitioned to sotalol during this admission after I saw her in consultation. She is now medically converted to sinus rhythm. Morbid obesity with obstructive sleep apnea untreated because of noncompliance As mentioned above patient is in sinus rhythm wearing BiPAP otherwise asymptomatic this morning Exam Const: General: comfortable and no acute distress Other: Morbidly obese black female comfortable cooperative in no distress of any sort BMI is 51.4 HENMT: Mouth: Yes moist mucous membranes Eyes: Sclera: sclerae normal Pupils: Equal, round and reactive pupils present Neck: Neck: no JVD Thyroid: thyroid normal Other: Carotid upstrokes are intact there are no bruits audible over the neck Resp: Effort & Inspection: normal respiratory effort Auscultation: clear to auscultation bilaterally Other: Breath sounds are distant because of her body habitus but otherwise clear no rales no rhonchi no wheezing Cardio: Rate: regular rate Rhythm: regular rhythm GI: Auscultation: normal bowel sounds Skin: General skin exam: normal color Neuro: Cranial nerves: Yes Equal, round and reactive pupils present Cognition (Neuro): normal cognition Extrem: General: normal to inspection Objective Data Vital Signs Vital Signs: Vital Signs - 24 hr 03/27/20 10:00 03/27/20 10:48 03/27/20 12:00 Temperature 36.6 C Pulse Rate 69 67 67 Respiratory Rate 22 H Blood Pressure 142/71 H Pulse Oximetry 93 03/27/20 14:00 03/27/20 16:00 03/27/20 18:00 Temperature 36.2 C L Pulse Rate 63 62 63 Respiratory Rate 22 H Blood Pressure 135/67 Pulse Oximetry 94 03/27/20 19:46 03/27/20 20:00 03/27/20 21:11 Temperature 36.2 C L Pulse Rate 60 88 59 L Respiratory Rate 18 Blood Pressure 152/66 H Pulse Oximetry 92 94 03/27/20 22:00 03/28/20 00:00 03/28/20 02:00 Temperature 36.1 C L Pulse Rate 55 L 55 L 58 L Respiratory Rate 20 Blood Pressure 133/73 Pulse Oximetry 94 03/28/20 03:47 03/28/20 04:00 03/28/20 06:00 Temperature 36.2 C L Pulse Rate 59 L 58 L 62 Respiratory Rate 22 H Blood Pressure 101/49 L Pulse Oximetry 96 94 Intake/Output Intake/Output: Intake & Output 03/25/20 03/26/20 03/27/20 03/28/20 23:59 23:59 23:59 23:59 Intake Total 1300 1080 390 Output Total 1400 500 300 Balance -100 580 90 Meds/Results Medications: Active Medications Generic Name Dose Route Start Last Admin Trade Name Freq PRN Reason Stop Dose Admin Acetaminophen 650 mg 03/25/20 21:54 03/27/20 11:35 Acetaminophen 325 Mg Tablet PO 650 mg Q4H PRN Administration Mild Pain (1-3) or Fever Aspirin 81 mg 03/26/20 09:00 03/27/20 10:44 Aspirin 81 Mg Enteric Tablet PO 81 mg DAILY JANKI Administration Brimonidine Tartrate 1 drop 03/26/20 09:00 03/27/20 21:00 Brimonidine Tartrate 0.2% Op Soln 5 Ml Btl EACH EYE Not Given Q12HR JANKI Dextrose 12.5 gm 03/26/20 05:16 Dextrose 50% 25 Gm/50 Ml Syringe IV PUSH PRN PRN Hypoglycemia Protocol Ferrous Sulfate 324 mg 03/26/20 08:00 03/27/20 17:59 Ferrous Sulfate 324 Mg Tablet PO 324 mg BIDWM JANKI Administration Furosemide 40 mg 03/26/20 09:00 03/27/20 10:47 Furosemide Inj 40 Mg/4 Ml Vial IV PUSH 40 mg DAILY JANKI Administration G
[2020-03-28 08:16] LABS: Glucose Point of Care 169 (65-105)
[2020-03-28] MEDS: SIMVASTATIN 20 MG TABLET PO (08:45)
[2020-03-28] MEDS: ASPIRIN 81 MG ENTERIC TABLET PO (08:45)
[2020-03-28] MEDS: FERROUS SULFATE 324 MG TABLET PO ×2 (08:45→18:33)
[2020-03-28] MEDS: SOTALOL HCL 80 MG TABLET PO ×2 (08:45→19:59)
[2020-03-28] MEDS: FUROSEMIDE INJ 40 MG/4 ML VIAL IV PUSH (08:46)
[2020-03-28] MEDS: INSULIN GLARGINE (*BKC) 100 UNITS/ML 30 UNITS SUB-Q (08:51)
[2020-03-28 12:18] LABS: Glucose Point of Care 196 (65-105)
--- NOTE | 2020-03-28 13:24 | PM.DS ---
DS: Admitting Diagnosis Admitting Diagnosis Admitting Diagnosis: (1) Atrial fibrillation with rapid ventricular response: - Unspecified atrial fibrillation (2) Diastolic CHF: (3) Chronic renal failure: (4) Essential hypertension: (5)- Type 2 diabetes mellitus without complications (6) Suspected 2019 novel coronavirus infection: DS: Discharge Diagnosis Discharge Diagnosis (1) Pulmonary hypertension: Onset Date: Unknown Code(s): I27.20 - Pulmonary hypertension, unspecified Status: Acute (2) Atrial fibrillation with rapid ventricular response: Code(s): I48.91 - Unspecified atrial fibrillation Status: Acute (3) Essential hypertension: Onset Date: Unknown Code(s): I10 - Essential (primary) hypertension Status: Chronic (4) Body mass index (BMI) of 50-59.9 in adult: Onset Date: 11/27/18 Code(s): Z68.43 - Body mass index [BMI] 50.0-59.9, adult Status: Acute (5) Hypertensive chronic kidney disease with stage 1 through stage 4 chronic kidney disease, or unspecified chronic kidney disease: Code(s): I12.9 - Hypertensive chronic kidney disease with stage 1 through stage 4 chronic kidney disease, or unspecified chronic kidney disease Status: Acute (6) KIERRA (obstructive sleep apnea): Code(s): G47.33 - Obstructive sleep apnea (adult) (pediatric) Status: Acute (7) Restrictive lung disease: Code(s): J98.4 - Other disorders of lung Status: Acute (8) Shortness of breath: Code(s): R06.02 - Shortness of breath Status: Acute DS: Summary Hospital Course Reason for hospitalization: Fast heart rate Hospital Course: This is a pleasant 69 year old diabetic female with known chronic atrial fibrillation on Xarelto therapy, CKD stage III, and HTN who presented to the hospital with a complaint of elevated heart rate for one week duration. She has noticed that her heart rate has been as high as the 140s at rest. She has also noticed increased peripheral swelling and worsening shortness of breath over the past few weeks. She has severe dyspnea with any exertion and mentions that just going to the bathroom leads to increased shortness of breath and tachycardia. Over the past weekend she also experienced midsternal chest pain although this has now resolved. She denies any fevers, chills, coughing, sore throat, headache, nausea, vomiting, abdominal pain, dysuria, diarrhea, or rectal bleeding. The patient was started on Cardizem IV for rate control in the ER tonight after she was found to be in atrial fibrillation w/ RVR. She was also treated with a dose of IV lasix and swabbed for COVID-19. No other complaints. Patient was ruled out for Covid 19 Cardiology was consulted and patient was started on Sotalol she converted to sinus rhythm and was discharged home Complete two-dimensional, color flow and Doppler transthoracic echocardiogram is performed. Summary 1. Complete two-dimensional, color flow and Doppler transthoracic echocardiogram is performed. 2. Normal left ventricular size with mild concentric left ventricular hypertrophy. Normal left ventricular systolic function with a visual ejection fraction 55-60% and a calculated ejection fraction of 55%. No segmental wall motion abnormalities. Grade 2 diastolic dysfunction is present. 3. Left atrial chamber dimension is mildly enlarged. 4. There is moderate mitral valve regurgitation. 5. There is moderate tricuspid valve regurgitation. 6. Moderate pulmonary hypertension, estimated pulmonary arterial systolic pressure is 56 mmHg. 7. Dilated inferior vena cava with <50% collapse upon inspiration consistent with elevated right atrial pressure, 15 mmHg. 8. Technically difficult study; the endocardium was not well seen in all views. 9. Normal sinus rhythm. Time Spent with Patient
--- NOTE | 2020-03-28 13:29 | PM.CNNEP ---
Assessment and Plan Assessment and plan (1) CKD (chronic kidney disease): Qualifiers: Chronic kidney disease stage: unspecified stage Qualified Code(s): N18.9 - Chronic kidney disease, unspecified Code(s): N18.9 - Chronic kidney disease, unspecified Status: Acute Assessment and Plan: Shaniqua has chronic kidney disease. Her baseline creatinine is around 2. Renal ultrasound was unremarkable. She was admitted here and her creatinine was at its baseline. She was given IV diuretics. Early on she had crackles in her lungs and today she has clear lungs. She still has some swelling. Most likely the patient has pre renal azotemia due to diuretics. The patient does not have obstruction as demonstrated by her ultrasound. Interstitial nephritis and glomerulonephritis are unlikely in this scenario. If the creatinine is higher today we can check a CPK since she is on a statin. I told her we would just stop her diuretics. I will recheck a basic metabolic panel today. She was apparently ready to go home today so if the creatinine is the same or better I think she could go. She will need another set of labs next week. If the creatinine is higher than will have to watch until starts coming down. (2) CHF (congestive heart failure): Qualifiers: Heart failure chronicity: unspecified Heart failure type: unspecified Qualified Code(s): I50.9 - Heart failure, unspecified Code(s): I50.9 - Heart failure, unspecified Status: Acute Assessment and Plan: The patient has good LV function. She does have moderate pulmonary hypertension which probably contributes to her swelling. (3) Atrial fibrillation with rapid ventricular response: Code(s): I48.91 - Unspecified atrial fibrillation Status: Acute Assessment and Plan: She had her rapid ventricular response on admission. Now her heart rate is in the 60 range. She feels much better. (4) Essential hypertension: Code(s): I10 - Essential (primary) hypertension Status: Chronic Assessment and Plan: Blood pressure is well controlled. (5) Diabetes mellitus: Qualifiers: Diabetes mellitus type: type 2 Diabetes mellitus senior care insulin use: with senior care use Diabetes mellitus complication status: with kidney complications Diabetes mellitus complication detail: with chronic kidney disease Chronic kidney disease stage: stage 3 (moderate) Chronic kidney disease stage 3 subtype: unspecified whether 3a or 3b Qualified Code(s): E11.22 - Type 2 diabetes mellitus with diabetic chronic kidney disease; N18.30 - Chronic kidney disease, stage 3 unspecified; Z79.4 - lobsterman (current) use of insulin Code(s): E11.9 - Type 2 diabetes mellitus without complications Status: Chronic Assessment and Plan: She is on Accu-Cheks and sliding-scale insulin History of Present Illness Reason for Consult Consult date: 03/28/20 Chief Complaint Chief complaint: a fib with rvr History of Present Illness Narrative: Shaniqua is a very pleasant 69-year-old lady who has multiple medical problems including chronic kidney disease stage 3 with a baseline creatinine of 2, hypertension, diabetes, chronic atrial fibrillation, arthritis, and glaucoma. The patient says that she follows her heart rate closely at home measuring it every day and generally has a reasonable heart rate below 100 but occasionally jumps up above 100 but never over 141 she says. The patient says that over the last 2 weeks her heart rates been higher. She is felt palpitations and had some shortness of breath on exertion. She thought it would just get better on its own but it did not so eventually she came to the emergency room for evaluation. She was seen in the emergency room and found to have atrial fibrillation with rapid ventricular rate. She was admitted rate was controlled. Cardiology saw the patient. Echocardiogram was done showing good
[2020-03-28 13:49] LABS: Anion Gap 4 mmol/L (8-16); Blood Urea Nitrogen 61 mg/dL (7-17); Calcium 9.8 mg/dL (8.4-10.2); Carbon Dioxide 31 mmol/L (22-30); Chloride 106 mmol/L (98-107); Estimated CRCL calculation 25 ml/min; Estimated Glomerular Filt Rate 20; Glucose 154 mg/dL (65-105); Potassium 4.2 mmol/L (3.4-5.0); Sodium 141 mmol/L (137-145)
[2020-03-28 15:26] LABS: Creatine Kinase 47 U/L (30-135)
[2020-03-28 16:55] LABS: Glucose Point of Care 247 (65-105)
[2020-03-28] MEDS: SODIUM CHLORIDE 0.9% IV 1,000 ML 100 ML IV CONT (18:32)
[2020-03-28] MEDS: RIVAROXABAN 20 MG TABLET PO (18:33)
[2020-03-28] MEDS: INSULIN ASPART (*BKC) 100 UNITS/ML SUB-Q (18:34)
--- NOTE | 2020-03-28 19:55 | PC.NURSE ---
This patient, Shaniqua Oakley, was transferred to [[facility]] on 03/28/20 at 1945. Personal belongings sent with patient. Report given to [TARSHA Bailey]. Appropriate documentation sent with patient.
[2020-03-28] MEDS: TIMOLOL MALEATE 0.5% OP SOLN 5 ML BOTTLE 1 DROP EACH EYE (19:59)
[2020-03-28] MEDS: BRIMONIDINE TARTRATE 0.2% OP SOLN 5 ML BTL 1 DROP EACH EYE (19:59)
[2020-03-28 20:06] LABS: Glucose Point of Care 357 (65-105)
[2020-03-29] VITALS (7 sets, daily range): BP systolic 119–147; BP diastolic 63–67; PULSE 55–59; RESP 15–20; TEMP 36.4–37.3; O2SAT 96–97
[2020-03-29 06:36] LABS: Albumin Level 3.5 g/dL (3.5-5.1); Anion Gap 7 mmol/L (8-16); Blood Urea Nitrogen 62 mg/dL (7-17); Calcium 9.7 mg/dL (8.4-10.2); Carbon Dioxide 26 mmol/L (22-30); Chloride 109 mmol/L (98-107); Estimated CRCL calculation 27 ml/min; Estimated Glomerular Filt Rate 21; Glucose 116 mg/dL (65-105); Phosphorus 5.1 mg/dL (2.5-4.5); Potassium 4.2 mmol/L (3.4-5.0); Sodium 142 mmol/L (137-145)
--- NOTE | 2020-03-29 07:00 | ECG_ITS ---
Measurements Intervals [place] Rate: 58 P: 47 [place]: 168 QRS: 49 QRSD: 99 T: 15 QT: 487 QTc: 479 Interpretive Statements SINUS BRADYCARDIA LOW QRS VOLTAGE IN PRECORDIAL LEADS INCOMPLETE RIGHT BUNDLE BRANCH BLOCK BASELINE ARTIFACT- I, II, AVR, V1 BORDERLINE ECG Electronically Signed On 03-29-2020 7:33:18 [employer]ER[employer] by Garrett Bucio D.O.
[2020-03-29] MEDS: SOTALOL HCL 80 MG TABLET PO (08:23)
[2020-03-29] MEDS: FERROUS SULFATE 324 MG TABLET PO (08:23)
[2020-03-29] MEDS: ASPIRIN 81 MG ENTERIC TABLET PO (08:23)
[2020-03-29] MEDS: SIMVASTATIN 20 MG TABLET PO (08:23)
[2020-03-29] MEDS: ACETAMINOPHEN 325 MG TABLET 650 MG PO (08:24)
[2020-03-29] MEDS: BRIMONIDINE TARTRATE 0.2% OP SOLN 5 ML BTL 1 DROP EACH EYE (08:24)
[2020-03-29] MEDS: TIMOLOL MALEATE 0.5% OP SOLN 5 ML BOTTLE 1 DROP EACH EYE (08:24)
[2020-03-29 08:39] LABS: Glucose Point of Care 117 (65-105)
[2020-03-29] MEDS: INSULIN GLARGINE (*BKC) 100 UNITS/ML 30 UNITS SUB-Q (08:46)
--- NOTE | 2020-03-29 10:03 | PM.PNCARD ---
Progress Note: A&P Assessment and Plan (1) Atrial fibrillation with rapid ventricular response: Code(s): I48.91 - Unspecified atrial fibrillation Status: Acute Assessment and Plan: Was started on sotalol 80 mg b.i.d.. She was started on the sotalol on 03/26 Continue Xarelto EKG personally reviewed; NSR rate 58, QTc 479 msec, acceptable. OK for discharge w/ sotalol and Xarelto. However, w/ GFR in this range of 20-30 ml/min, will reduce the dose of sotalol to 80 mg once daily and the Xarelto to 15 mg qd. I see no reason for pt to take ASA; no known vascular diseae or CAD and in combination w/ Xarelto it increased bleeding risk. Will DC it. FU in office. (2) CHF (congestive heart failure): Qualifiers: Heart failure chronicity: unspecified Heart failure type: unspecified Qualified Code(s): I50.9 - Heart failure, unspecified Code(s): I50.9 - Heart failure, unspecified Status: Acute Assessment and Plan: Had CHF on admission, chronic LE edema, tx'd w/ IV Lasix. LUngs now clear but pt developed MARC. Last dose Lasix was yesterday HOld Lasix for a couple more days before resuming usual home Lasix on Tuesday. (3) Essential hypertension: Code(s): I10 - Essential (primary) hypertension Status: Chronic Assessment and Plan: Blood pressure is controlled. Pt does nto take losartan at home, just irbesartan. (4) KIERRA (obstructive sleep apnea): Code(s): G47.33 - Obstructive sleep apnea (adult) (pediatric) Status: Acute Assessment and Plan: Tolerated CPAP last night. Encourage CPAP use to help prevent recurrent a fib. (5) MARC (acute kidney injury): Code(s): N17.9 - Acute kidney failure, unspecified Status: Acute Assessment and Plan: Developed MARC 2nd IV diuretic. Last dose was yesterday. Hold Lasix; resume on Tuesday. BMP in 1 week. Subjective Date/time seen: 03/29/20 10:03 Interval history: Follow-up visit in this 69-year-old lady with: Paroxysmal atrial fibrillation being treated chronically with metoprolol transitioned to sotalol during this admission. She is now medically converted to sinus rhythm. Morbid obesity with obstructive sleep apnea untreated because of noncompliance. Echo showed EF 55-60%, diast dysfxn, mod. MR/TR and pulm HTN w/ RVSP of 56 mmHg. Date of Service 03/29/2020: Feeling well, n more SOB, upin chair. Has chronic LE edema. Tolerated CPAP last night. REmains in NSR w/ mild bradycardia, HR 58 BPM. Review of Systems Constitutional: Constitutional: Reports no additional constitutional complaints ENT: Denies epistaxis Cardiovascular: Cardiovascular: Denies chest pain, Reports pedal edema, Reports leg edema and Denies palpitations Respiratory: Respiratory: Denies dyspnea and Denies dyspnea on exertion Gastrointestinal: Gastrointestinal: Denies abdominal pain Genitourinary: Genitourinary: Denies hematuria Musculoskeletal: Musculoskeletal: Reports arthralgias (Charcot foot) Integumentary/Breasts: Skin/Breast: Denies rash Neurologic: Reports system reviewed and no additional complaints, except as documented Psychiatric: Psychiatric: Reports no additional psychiatric complaints Exam Const: General: comfortable and no acute distress HENMT: General nose exam: no epistaxis Eyes: EOM: EOMs intact bilaterally Neck: Neck: supple Resp: Effort & Inspection: normal respiratory effort Auscultation: clear to auscultation bilaterally Cardio: Rate: regular rate Rhythm: regular rhythm Heart sounds: no murmurs GI: Inspection: non-distended GI Palp: Yes Soft to palpation and No Firmness to palpation present (GI) Neuro: Speech: normal speech Motor exam (neuro): Normal motor muscle tone present throughout Extrem: General: edema Othe
--- NOTE | 2020-03-29 13:39 | PM.PNNEP ---
Progress Note: A&P Assessment and Plan (1) CKD (chronic kidney disease): Qualifiers: Chronic kidney disease stage: unspecified stage Qualified Code(s): N18.9 - Chronic kidney disease, unspecified Code(s): N18.9 - Chronic kidney disease, unspecified Status: Acute Assessment and Plan: Shaniqua has chronic kidney disease. Her baseline creatinine is around 2. Renal ultrasound was unremarkable. she has quite a bit of protein in her urine. This probably explains her swelling her creatinine is better off the diuretics. Okay for discharge. She should get a renal panel at the end of next week and call for the results. (2) CHF (congestive heart failure): Qualifiers: Heart failure chronicity: unspecified Heart failure type: unspecified Qualified Code(s): I50.9 - Heart failure, unspecified Code(s): I50.9 - Heart failure, unspecified Status: Acute Assessment and Plan: The patient has good LV function. She does have moderate pulmonary hypertension which probably contributes to her swelling. (3) Atrial fibrillation with rapid ventricular response: Code(s): I48.91 - Unspecified atrial fibrillation Status: Acute Assessment and Plan: She had her rapid ventricular response on admission. Now her heart rate is in the 60 range. She feels much better. (4) Essential hypertension: Code(s): I10 - Essential (primary) hypertension Status: Chronic Assessment and Plan: Blood pressure is well controlled. (5) Diabetes mellitus: Qualifiers: Diabetes mellitus type: type 2 Diabetes mellitus tank terminal gauger insulin use: with tank terminal gauger use Diabetes mellitus complication status: with kidney complications Diabetes mellitus complication detail: with chronic kidney disease Chronic kidney disease stage: stage 3 (moderate) Chronic kidney disease stage 3 subtype: unspecified whether 3a or 3b Qualified Code(s): E11.22 - Type 2 diabetes mellitus with diabetic chronic kidney disease; N18.30 - Chronic kidney disease, stage 3 unspecified; Z79.4 - [facility]CI (current) use of insulin Code(s): E11.9 - Type 2 diabetes mellitus without complications Status: Chronic Assessment and Plan: She is on Accu-Cheks and sliding-scale insulin Subjective Date/time seen: 03/29/20 13:39 Interval history: the patient feels better today. She is eager for discharge she denies any shortness of breath. She has a little bit of swelling Review of Systems Cardiovascular: Cardiovascular: Reports no additional cardiovascular complaints Respiratory: Respiratory: Reports no additional respiratory complaints Gastrointestinal: Gastrointestinal: Reports no additional gastrointestinal complaints Genitourinary: Genitourinary: Reports no additional female genitourinary complaints Exam Narrative: Exam Narrative: WDWN in NAD skin no rash or subcu nodules head ncat lungs clear cor reg no rub abd BS+ nontender and soft ext trace edema. Objective Data Vital Signs Vital Signs: Vital Signs - 24 hr 03/28/20 14:00 03/28/20 16:00 03/28/20 18:00 Temperature 36.1 C L Pulse Rate 61 61 61 Respiratory Rate 98 H Blood Pressure 151/72 H Pulse Oximetry 18 L 03/28/20 19:59 03/28/20 20:00 03/29/20 00:00 Temperature 36.5 C 36.4 C L Pulse Rate 61 62 56 L Respiratory Rate 18 18 Blood Pressure 151/71 H 119/63 Pulse Oximetry 98 96 03/29/20 03:27 03/29/20 04:00 03/29/20 08:00 Temperature 36.4 C L Pulse Rate 56 L 57 L 58 L Respiratory Rate 20 15 Blood Pressure 130/67 Pulse Oximetry 97 96 03/29/20 08:23 03/29/20 08:30 03/29/20 12:00 Temperature 37.3 C Pulse Rate 58 L 58 L 59 L Respiratory Rate 15 Blood Pressure 147/63 H Pulse Oximetry 96 Intake/Output Intake/Output: Intake & Output 03/26/20 03/27/20 03/28/20 03/29/20 23:59 23:59 23:59 23:59 Intake Total 1300 1080 1450 1590 Output Total 1400 500 80
== END 2020-03-29 14:32 | disposition home or self-care (01) | DRG 291 ==
LOC: ANHED 19:59 → ANHIMU 22:52 → ANHCPC 03-29 11:46 → ANHIMU 04-01 16:28
PROVIDERS: Internal Medicine Cardiovascular Disease; Internal Medicine Nephrology; Admitting Provider Family Medicine; Emergency Provider Emergency Medicine; PCP Family Medicine; Visit Provider Internal Medicine
DX: I13.0 Hypertensive heart and chronic kidney disease with heart failure and stage 1 through stage 4 chronic kidney disease, or unspecified chronic kidney disease (principal); I50.33 Acute on chronic diastolic (congestive) heart failure; Z68.43 Body mass index [BMI] 50.0-59.9, adult; I48.91 Unspecified atrial fibrillation; E11.22 Type 2 diabetes mellitus with diabetic chronic kidney disease; N18.30 Chronic kidney disease, stage 3 unspecified; Z79.4 Long term (current) use of insulin; E66.01 Morbid (severe) obesity due to excess calories; G47.33 Obstructive sleep apnea (adult) (pediatric); Z20.822 Contact with and (suspected) exposure to COVID-19; Z23 Encounter for immunization
CPT/HCPCS: 36415; 71045; 76775; 80048; 80053; 80069; 82550; 83735; 83880; 84439; 84443; 84484; 85025; 85610; 85730; 90471; 90653; 93005; 93306; 96365; 99285; A9270; C9803; G0008; J1815; J1940; J7030; U0003; U0005

== ENCOUNTER 2020-03-29 16:23 | Inpatient (IN) | payer MEDICARE, OTHER, SELFPAY ==
[2020-03-29] VITALS (38 sets, daily range): BP systolic 90–173; BP diastolic 46–92; PULSE 50–67; RESP 0–26; TEMP 34.7–37.1; O2SAT 29–100
--- NOTE | ~2020-03-29 | XR_ITS ---
EXAMINATION: XR abdomen NG/feed tube insert EXAM DATE: 03/29/2020 17:13 INDICATION: Nasogastric tube placement. TECHNIQUE: Frontal projection(s) of the abdomen for interpretation. There is no prior study for dony hernandez. FINDINGS: Feeding tube tip and side-port project over gastric antrum and body respectively, adequate . Nonobstructive upper abdominal bowel gas pattern. There is no organomegaly. Lung bases unremarkable . Patient has diffuse idiopathic skeletal hyperostosis (DISH). IMPRESSION: Feeding tube position. Reviewed, dictated and finalized at location A. T LEADER IMPRESSION: Feeding tube position.
--- NOTE | ~2020-03-29 | XR_ITS ---
EXAMINATION: XR chest 1V portable EXAM DATE: 04/08/2020 08:24 INDICATION: CHF. Cough. TECHNIQUE: Portable AP frontal chest x-ray was obtained. Comparison is made to prior examination from 04/06/2020. FINDINGS: Right IJ venous line in position. There is cardiomegaly and pulmonary vascular congestion. There is indistinct reticulation with a bibasal predominance which may indicate pulmonary edema. Lung s appear more opacified than on prior study, but this could be partly technical from a less penetrate d exam. Small pleural effusions. No pneumothorax. IMPRESSION: Findings consistent with CHF exacerbation. Reviewed, dictated and finalized at location D. S LAMINATING OPERATOR
--- NOTE | ~2020-03-29 | XR_ITS ---
EXAMINATION: XR chest 1V portable INDICATION: Respiratory failure TECHNIQUE: Portable AP chest at 0523 hours COMPARISON: 03/29/2020 FINDINGS: The endotracheal tube ends approximately 3.7 cm above the alfredo. The nasogastric tube is f ollowed as far as the stomach. Its tip is beyond the inferior margin of the radiograph. A right inter nal jugular central venous catheter ends with its tip in the right atrium. There is no pleural effusi on or pneumothorax. A mild diffuse interstitial pattern is present. Cardiomegaly is noted. There is n o pleural effusion or pneumothorax. IMPRESSION: 1. Cardiomegaly with mild pulmonary edema. Reviewed, dictated and finalized at location A. ORMANCE TEST CONSULTANT
--- NOTE | ~2020-03-29 | US_ITS ---
EXAMINATION: US biopsy renal DATE: 04/17/2020 11:32 INDICATION: Acute on chronic renal disease. TECHNIQUE: The procedure including the risks, benefits, and alternatives was discussed with the patie nt. Risks discussed included bleeding and infection. The patient understood the risks and agreed to p roceed. A timeout was performed to verify the patient's name, date of , and procedure to be p erformed. The skin overlying the left kidney was prepped and draped in usual sterile fashion. Anest hetic was administered with 1% lidocaine subcutaneously. An 18 gauge core biopsy needle was then use d to obtain 5 core biopsy specimens under continuous sonographic guidance. The entry site was cleaned and dressed. There were no immediate complications. FINDINGS: Ultrasound images demonstrate the needle in the kidney. IMPRESSION: 1. Ultrasound-guided random left kidney core needle biopsy. Reviewed, dictated and finalized at location A. ER ACCOUNTS INVESTIGATOR
--- NOTE | ~2020-03-29 | XR_ITS ---
XR chest port-a-cath/central DATE: 04/11/2020 12:02 INDICATION: Tunneled dialysis catheter; postoperative examination TECHNIQUE: Portable upright AP chest on April 11, 2020 at 1204 hours COMPARISON: April 09/2021 portable AP chest FINDINGS: Interval placement of a dual lumen right internal jugular central venous catheter, the cath eter tip overlying the superior vena cava near the superior cavoatrial junction. No evidence of pneum othorax. There are bilateral lower lung infiltrates and/atelectasis. Low lung volumes. Cardiomegaly is suggested. IMPRESSION: Right internal jugular dialysis catheter placement near superior cavoatrial junction; no pneumothorax Reviewed, dictated and finalized at Location A. Reviewed, dictated and finalized at location A. R OPTICS TECHNICIAN IMPRESSION: Right internal jugular dialysis catheter placement near superior ca voatrial junction; no pneumothorax
--- NOTE | ~2020-03-29 | XR_ITS ---
EXAMINATION: XR fl guide central line place EXAM DATE: 04/11/2020 12:01 INDICATION: Placement tunneled dialysis catheter. TECHNIQUE: Fluoroscopy used during XR fl guide central line place performed by Dr. Torito Hennessy MD. The DAP for this procedure was 3.4 mGym2.cGycm2. FINDINGS: Available images demonstrate a right-sided IJ approach double lumen dialysis catheter plac ement in expected position. Correlate with procedure note. IMPRESSION: Fluoroscopy used during XR fl guide central line place. Reviewed, dictated and finalized at location B. NG DEPARTMENT PREPARER
--- NOTE | ~2020-03-29 | XR_ITS ---
EXAMINATION: XR chest 1V portable EXAM DATE: 03/31/2020 06:04 INDICATION: Respiratory failure, CHF. TECHNIQUE: Portable AP frontal chest x-ray was obtained. Comparison is made to prior examination from 03/30/2019. FINDINGS: Endotracheal tube tip is 4 centimeters above the alfredo. There is a nasogastric tube seen with tip collimated off the study, but below the left hemidiaphragm. There is a right IJ venous line. The cardiac silhouette is enlarged. There is pulmonary vascular congestion. There is indistinct retic ulation with a bibasal predominance which may indicate pulmonary edema. No confluent consolidation. There are no sizable pleural effusions. There is no pneumothorax suspected. The bones and soft t issues are unremarkable. There is no significant interval change compared to prior exam. IMPRESSION: 1. Line and tube(s) in position. 2. Cardiomegaly, congestion and mild pulmonary edema. Reviewed, dictated and finalized at location A. TER MACHINE
--- NOTE | ~2020-03-29 | XR_ITS ---
EXAMINATION: XR chest 1V portable EXAM DATE: 04/02/2020 05:55 INDICATION: Respiratory failure CHF. Portable AP frontal chest x-ray was obtained. Comparison is made to prior examination from 03/2004. FINDINGS: There is a right IJ venous line. The cardiac silhouette is enlarged. There is pulmonary va scular congestion. There is indistinct reticulation with a bibasal predominance which may indicate pu lmonary edema. No confluent consolidation. There are no sizable pleural effusions. There is no pn eumothorax suspected. The bones and soft tissues are unremarkable. There is no significant interval change. IMPRESSION: Cardiomegaly, congestion and mild pulmonary edema. Reviewed, dictated and finalized at location A. CUTTER
--- NOTE | ~2020-03-29 | XR_ITS ---
EXAMINATION: XR chest port-a-cath/central EXAM DATE: 03/29/2020 18:26 INDICATION: Central line placement verification. TECHNIQUE: Portable AP frontal chest x-ray was obtained. Comparison is made to prior examination from earlier same date. FINDINGS: There is a new right-sided IJ venous line in position. Endotracheal tube and nasogastric t ubes are in position. There is cardiomegaly and pulmonary vascular congestion. No confluent consolida tion, pneumothorax or pleural effusion suspected. There are bony degenerative changes. IMPRESSION: 1. Line and tube(s) in position. 2. Cardiomegaly, congestion. 3. No evidence postprocedure pneumothorax. Reviewed, dictated and finalized at location A. STATION CLERK
--- NOTE | ~2020-03-29 | XR_ITS ---
EXAMINATION: XR chest ET placement EXAM DATE: 03/29/2020 17:13 INDICATION: Intubated. TECHNIQUE: Portable AP frontal chest x-ray was obtained. Comparison is made to prior examination from 03/25/2020. FINDINGS: Endotracheal tube tip is 2 centimeters above the alfredo. There is a nasogastric tube seen with tip collimated off the study, but below the left hemidiaphragm. There is cardiomegaly and pulmonary vascular congestion. No confluent consolidation, pneumothorax or pleural effusion suspected. The bones and soft tissues are unremarkable. There is no significant interval change compared to prior exam. IMPRESSION: 1. Tubes in position. 2. Cardiomegaly, pulmonary vascular congestion. Reviewed, dictated and finalized at location A. ALT MACHINE OPERATOR
--- NOTE | ~2020-03-29 | CT_ITS ---
EXAMINATION: CT brain wo con EXAM DATE: 03/29/2020 19:00 INDICATION: Unresponsive. History atrophic fibrillation. TECHNIQUE: Spiral CT of the head was performed without contrast. Axial, coronal and sagittal images were reviewed. The dose-length product (DLP) for this examination was 681.00 mGy-cm. The exposure w as tailored according to patient size, and iterative reconstruction (ASIR) was used as additional dos e reduction technique. There is no prior study for comparison. FINDINGS: Intubated and orogastric tubes. There is no acute intraparenchymal hemorrhage. No evidence of intraparenchymal brain mass lesion. No evidence of acute infarction. Please note that initial h ead CT has limited sensitivity for small or acute infarctions. There is mild periventricular and subc ortical hypodensity, nonspecific but probably related to small vessel ischemic disease. There is mi ld prominence of the sulci and ventricles related to cerebral atrophy. There is intracranial caroti d arteriosclerosis. There are no extra-axial collections. There is no mass effect or midline shift. Patient has had bilateral ocular lens surgery. Soft tissue is unremarkable. Mild to moderate bila teral ethmoid mucoperiosteal thickening. IMPRESSION: 1. No acute intracranial findings. 2. Chronic age related findings. Reviewed, dictated and finalized at location A. TRUCK DISPATCHER
--- NOTE | ~2020-03-29 | XR_ITS ---
EXAMINATION: XR chest 1V portable DATE: 04/06/2020 08:29 INDICATION: Shortness of breath TECHNIQUE: frontal view of the chest was obtained. COMPARISON: Chest radiograph dated 04/02/2020 and 03/30/[address] dated 03/30/2020 FINDINGS: New opacity at the right lung base along the apex of the diaphragm. Hazy airspace opacities at the bi lateral lower lung zones could be related to body habitus or small bilateral layering pleural effusio ns as seen on CT dated 03/30/2020. No pulmonary edema or pneumothorax. Cardiomegaly. IMPRESSION: 1. Hazy opacities at the bilateral lower lung zones with more dense consolidation at the apex of the right hemidiaphragm likely representing similar pattern of small bilateral pleural effusions and righ t lower lobar atelectasis as seen on earlier CT although pneumonia at the right lung base cannot be a bsolutely excluded. 2. Cardiomegaly. Reviewed, dictated and finalized at location A. KBROKER IMPRESSION: 1. Hazy opacities at the bilateral lower lung zones with more dense consolidati on at the apex of the right hemidiaphragm likely representing similar pattern o f small bilateral pleural effusions and right lower lobar atelectasis as seen o n earlier CT although pneumonia at the right lung base cannot be absolutely exc luded. 2. Cardiomegaly.
--- NOTE | ~2020-03-29 | CT_ITS ---
EXAMINATION: CT chest high resolution [facility] DATE: 03/30/2020 11:48 INDICATION: Respiratory failure TECHNIQUE: Computed tomography (CT) of the chest was performed without intravenous contrast. The dose -length product (DLP) was 880.96 mGy-cm. Automated exposure control and iterative reconstruction tech [employer] were employed. COMPARISON: 12/07/2018 FINDINGS: The endotracheal tube ends 1.7 cm above the alfredo. The nasogastric tube is in the stomach. There are small pleural effusions, right greater than left. There is mild dependent atelectasis. The re are subtle groundglass opacities throughout the lungs. A stable 5 mm nodule in the right middle lo be and a stable 5 mm subpleural nodule of the left lower lobe are consistent with old granulomatous d isease. There is no pneumothorax. Cardiomegaly is noted. There is calcified coronary artery atheroscl erosis. No pathologically enlarged thoracic lymph nodes are identified. There are bridging osteophyte s at multiple levels in the spine, consistent with diffuse idiopathic skeletal hyperostosis (DISH). IMPRESSION: 1. Cardiomegaly with likely mild pulmonary edema. 2. Small pleural effusions. Reviewed, dictated and finalized at location A. RONMENTAL MAINTENANCE WORKER
--- NOTE | ~2020-03-29 | XR_ITS ---
EXAMINATION: XR chest 1V portable EXAM DATE: 04/09/2020 14:32 INDICATION: AFib RVR, wheezing TECHNIQUE: Portable AP frontal chest x-ray was obtained. Comparison is made to prior examination from 04/08/2020. FINDINGS: There is right IJ venous line, tip projecting over right atrium. There is cardiomegaly and pulmonary vascular congestion. There is indistinct reticulation with a bibasal predominance which may indicate pulmonary edema. Probable subpulmonic pleural effusions. Overall appearance is consistent w ith CHF exacerbation. Basilar pneumonia not excludable. There is no pneumothorax suspected. There are no osseous abnormalities identified. IMPRESSION: Findings consistent with CHF exacerbation unchanged. Reviewed, dictated and finalized at location B. TIC HABITAT BIOLOGIST
--- NOTE | ~2020-03-29 | XR_ITS ---
EXAMINATION: XR chest 1V portable EXAM DATE: 04/01/2020 06:23 INDICATION: Respiratory failure, CHF. Portable AP frontal chest x-ray was obtained. Comparison is made to prior examination from 03/31. FINDINGS: Tubes have been removed. There is a right IJ venous line. The cardiac silhouette is enlarge d. There is pulmonary vascular congestion. There is indistinct reticulation with a bibasal predominan ce which may indicate pulmonary edema. No confluent consolidation. There are no sizable pleural eff usions. There is no pneumothorax suspected. The bones and soft tissues are unremarkable. IMPRESSION: 1. Cardiomegaly, congestion and mild pulmonary edema. Reviewed, dictated and finalized at location A. LE BOX MAKER
[2020-03-29] MEDS: SUCCINYLCHOLINE CHLORIDE 20 MG/ML 10 ML VIAL 100 MG IV PUSH (16:32)
[2020-03-29] MEDS: ETOMIDATE 20 MG/10 ML AMPUL IV PUSH (16:32)
[2020-03-29] MEDS: SODIUM CHLORIDE 0.9% IV 1,000 ML 999 ML IV CONT (16:35)
--- NOTE | 2020-03-29 16:44 | ECG_ITS ---
Measurements Intervals [place] Rate: 51 P: 50 ID: [id number] QRS: 46 QRSD: 92 T: 38 QT: 547 QTc: 505 Interpretive Statements SINUS BRADYCARDIA INCOMPLETE RIGHT BUNDLE BRANCH BLOCK PROLONGED QT INTERVAL ABNORMAL ECG Electronically Signed On 03-30-2020 7:36:10 LICENSED FUNERAL DIRECTOR AND EMBALMER by Garrett Bucio D.O.
[2020-03-29 16:55] LABS: Basophils Percent Auto 0.3 % (0.2-1.2); Eosinophils Absolute Auto 0.2 K/mm3 (0-0.3); Eosinophils Percent Auto 1.3 % (0-4.4); Hematocrit 41.5 % (37.0-47.0); Immature Granulocyte Absolute 0.49 K/mm3 (0.00-0.031); Immature Granulocyte Percent A 3.7 % (0-0.5); Lymphocytes Absolute Auto 3.28 K/mm3 (0.9-3.2); Lymphocytes Percent Auto 24.7 % (18.3-44.2); Mean Corpuscular HGB Conc 31.3 g/dl (32-36); Mean Corpuscular Hemoglobin 25.8 pg (26-34); Mean Corpuscular Volume 82.5 fl (80-100); Mean Platelet Volume 11.4 fl (7.4-10.4); Monocytes Absolute Auto 0.9 K/mm3 (0.1-0.6); Monocytes Percent Auto 6.7 % (2.6-8.5); Neutrophils Absolute Auto 8.4 K/mm3 (1.3-6.7); Neutrophils Percent Auto 63.3 % (45.5-73.1); Nucleated Red Blood Cells Perc 0.2 % (0.0-0.2); Platelet Count Result 208 k/mm3 (150-375); Red Blood Count 5.03 M/mm3 (4.2-5.4); White Blood Count 13.3 K/mm3 (4.5-10.0)
[2020-03-29 17:05] LABS: INR 1.8; Prothrombin Time 21.8 Seconds (11.1-14.7)
[2020-03-29 17:10] LABS: Alanine Aminotransferase 46 U/L (4-35); Albumin Level 4.1 g/dL (3.5-5.1); Alkaline Phosphatase 90 U/L (38-126); Anion Gap 13 mmol/L (8-16); Aspartate Amino Transferase 62 U/L (14-36); Bilirubin,Total 0.7 mg/dL (0.2-1.3); Blood Urea Nitrogen 64 mg/dL (7-17); Calcium 9.8 mg/dL (8.4-10.2); Carbon Dioxide 22 mmol/L (22-30); Chloride 106 mmol/L (98-107); Estimated Glomerular Filt Rate 20; Glucose 114 mg/dL (65-105); Potassium 4.6 mmol/L (3.4-5.0); Sodium 141 mmol/L (137-145)
[2020-03-29 17:22] LABS: Alveolar/Arterial O2 Gradient 605.9 mmHg; Base Excess ABG -9.1 mEq/l (+/-2.0); Carboxyhemoglobin 0.6 % THb (0-2.0); Fractional Inspired Oxygen 100 %; Methemoglobin ABG 0.2 %THb (0-1.5); Oxygen Content ABG 14.7 %vol (16.0-22.0); Oxyhemoglobin 86.4 % THb (90.0-100.0); PCO2 ABG 43.9 mmHg (35.0-45.0); PO2 ABG 63.2 mmHg (80.0-100.0); PO2 FiO2 Ratio Arterial Blood 0.63 %; Reduced Hemoglobin 12.8 %THb (0-5.0); Total Hemoglobin 12.1 g/dL (12.0-18.0)
[2020-03-29 17:22] LABS: NT Pro B Type Natriuretic Pept 5610 PG/ML (5-100); Troponin I 0.014 ng/mL (0.000-0.034)
[2020-03-29 17:24] LABS: Device VENTILATOR; Modified Allen's Test Pass; Site Drawn LEFT RADIAL; pH ABG 7.231 (7.350-7.450)
[2020-03-29 17:25] LABS: Arterial Blood Gas PEEP 10 cmH2O; Arterial Blood Gas Vent Mode CMV; Arterial Blood Gas Ventilator rate 16 /MIN
[2020-03-29 17:26] LABS: Arterial Blood Gas Pressure Support 0 cmH2O; Arterial Blood Gas Tidal Volume 400 ml
[2020-03-29 17:33] LABS: Lactic Acid Reflex 6.6 mmol/L (0.7-2.1)
[2020-03-29] MEDS: MIDAZOLAM HCL (*CRX) 2 MG/2 ML VIAL IV PUSH ×2 (17:35→18:05)
[2020-03-29] MEDS: fentaNYL CITRATE INJ (*CRX) 100 MCG/2 ML VIAL 50 MCG IV PUSH ×2 (18:05→20:50)
--- NOTE | 2020-03-29 18:54 | ED.GENADULT ---
HPI - General Adult General Chief complaint: Cardiac Arrest/CPR Stated complaint: unresponsive Time Seen by Provider: 03/29/20 16:42 Source: EMS Mode of arrival: EMS Limitations: clinical condition History of Present Illness HPI narrative: 69-year-old with a history of hypertension, diabetes, CHF, CKD, A. fib on Xarelto was brought in from home . Patient was discharged few hours ago from the hospital for kidney failure. While patient was trying to get into the house with the help of paramedics patient collapsed as per the EMS patient had in asystole followed by [facility], CPR was initiated 1 round of epi was given and patient regained pulse and was later transported to ER. Upon arrival patient was still unresponsive. Onset (ago): minute(s) (30) Related Data Home Medications Medication Instructions Recorded Confirmed ferrous sulfate 325 mg (65 mg 325 mg PO BID 03/08/19 03/25/20 iron) tablet furosemide 40 mg tablet 40 mg PO QAM 03/08/19 03/25/20 insulin aspar prot-insulin aspart 20 unit SUB-Q BID 03/08/19 03/25/20 100 unit/mL (70-30) subcutaneous pen insulin glargine 100 unit/mL (3 30 unit SUB-Q DAILY 03/08/19 03/25/20 mL) subcutaneous pen simvastatin 20 mg tablet 20 mg PO DAILY 03/08/19 03/25/20 brimonidine 0.2 %-timolol 0.5 % 1 drop EACH EYE Q12H 05/01/19 03/25/20 eye drops irbesartan 300 mg PO DAILY 03/25/20 03/25/20 metoprolol tartrate 50 mg PO BID 03/25/20 03/25/20 Allergies Allergy/AdvReac Type Severity Reaction Status Date / Time lisinopril Allergy Unknown dizziness Verified 07/02/19 13:20 clopidogrel AdvReac Intermediate unkn own Verified 07/02/19 13:20 Review of Systems Review of Systems: ROS unobtainable: Yes unobtainable due to medical condition PMFSH Past Medical History Medical History Arthritis Diabetes mellitus Essential hypertension Glaucoma H/O: HTN (hypertension) History of glucose tolerance testing Family History Family History Mother , heart attack Diabetes mellitus Father Diabetes mellitus Cerebrovascular accident Leukemia Social History Social History Smoking status: Never smoker Alcohol intake: never Substance use: never Spiritual care concerns: No Exam Narrative: Exam Narrative: GENERAL:Unresponsive HEAD: Normocephalic, atraumatic. EYES: PERRLA and EOMI. ENT: Nasal trumpet present, frothy sputum in the mouth NECK: Supple. CHEST: Clear to auscultation. No respiratory distress. HEART: Regular rate and rhythm. No murmur heard. Normal peripheral pulses. ABDOMEN: Soft, nontender, nondistended, normal active bowel sounds. Morbidly obese EXTREMITIES: No edema. SKIN: cold. NEURO: Unresponsiive. Course Vital Signs Vital signs: Vital Signs Pulse Rate 63 03/29/20 16:21 Respiratory Rate 26 H 03/29/20 16:21 Blood Pressure 165/85 H 03/29/20 16:21 Temperature 36.3 C L 03/29/20 19:01 Pulse Rate 57 L 03/29/20 19:01 Respiratory Rate 18 03/29/20 19:01 Blood Pressure 161/84 H 03/29/20 19:01 Pulse Oximetry 100 03/29/20 19:01 Procedures Central Line Placement Right IJ: Central Line Date: 03/29/20 Performed Emergently - Given emergent patient condition, temporal constraints may have precluded informed consent.: Yes Patient Placed on Monitor/Pulse Ox: Yes Max. Sterile Barrier Technique: Caps, large sterile sheet and hand hygiene Central Line Prep: 2% chlorhexidine scrub Technique: US-Guided Ultrasound Used for Placement: Yes Central Line Lumen Inserted: triple Post Procedure: sutured in place, good blood return, all ports aspirated, flushed, capped and sterile dressing applied Post Procedure X-Ray: tip of catheter in good position and no pneumothorax seen Patient Tolerated Procedure: well
--- NOTE | 2020-03-29 19:14 | PC.NURSE ---
1632: Patient was given 20 mg (10ml) Amidate and 100 mg (5ml) Anectine IVP per verbal order of Dr. Gan per the left arm PIV. 1633: Patient was intubated by Dr. Gan at this time. 7.5 ETT secured at 22 cm to her lips. Color change was noted on colormetric CO2 detector, fogging noted in ETT, lung sounds auscultated bilaterally, and no breath sounds heard over the epigastrium. ETT was secured in place with hospital securing device by respiratory therapy. 1635: OG tube (16 [place]) placed by TARSHA Mccray measured at 62 cm at lips and was secured with tape. Gastric contents were aspirated at this time. Xray for ETT and OG tube placement verification ordered and xray notified.
[2020-03-29 20:09] LABS: Reflex Lactic Acid Yes or No Add Lactic
--- NOTE | 2020-03-29 20:15 | PM.IMHP ---
H&P: HPI History of Present Illness Date/Time: 03/29/20 20:15 Chief Complaint: Cardiac arrest. Narrative: This is a 69-year-old morbidly obese female with atrial fibrillation, chronic kidney disease, hypertension, and sleep apnea who presented to the emergency department earlier today via EMS from home in cardiac arrest. She was recently admitted to this facility on 03/25/2020 with atrial fibrillation with rapid ventricular response and was discharged home just 2 hours prior to her presentation today. She was in persistent atrial fibrillation prior to that admission, maintained on metoprolol and rivaroxaban, and was switched to sotalol in hopes of controlling her rhythm better. She was started on sotalol 80 mg twice daily on 03/26/2020 and it was noted that she had a 3.6 second pause around 03:00 hours on 03/27/2020 which was attributed to her underlying untreated sleep apnea. She was stable for discharge home today, and it looks like Dr. Gonzalez decrease her sotalol dose to 80 mg once a day due to her GFR (her creatinine did rise with diuresis during this stay). It is noted that her QTc was within acceptable range at 479 on this morning's EKG. In any event, I spoke with the nurse that discharged her and Shaniqua was in good spirits and feeling well. It is my understanding that her brother drove her home today and EMS met them there as she was too weak to get inside with just the help of her brother. While helping her into the home she had a syncopal episode and was assisted to the ground. At that time she had snoring respirations and was bradycardic in the 30s then went in to [facility]. CPR was initiated at 15:57 and 1 mg of epinephrine was given, with ROSC at 16:00. She was intubated on arrival to the emergency department and has been admitted in this setting. QTc on EKG obtained in the emergency department was 505. Aside from an elevated troponin, her labs are not terribly abnormal with a slightly elevated white blood cell count, LFTs, and creatinine. At the time my evaluation she is sedated and intubated and is unable to provide history. Of note, after the patient was intubated her eyes were open and she was biting on the tube, reportedly following some commands thus hypothermia protocol was not initiated. Review of Systems Review of Systems: ROS unobtainable: Yes unobtainable due to medical condition [facility] Past Medical History Medical History (Updated 03/29/20 @ 23:35 by Debbie Bolanos PA-C) Arthritis Atrial fibrillation Chronic kidney disease, stage 4 (severe) Current use of usp anticoagulation Diabetic peripheral neuropathy Diastolic congestive heart failure Echocardiogram on 03/25/2020 showed diastolic dysfunction grade 2 with an ejection fraction of 55%, moderate mitral and tricuspid valve regurgitation, and moderate pulmonary hypertension with an estimated peak RVSP of 56 mmHg Essential hypertension Glaucoma 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 Morbid obesity Obstructive sleep apnea Osteomyelitis Left 5th toe status post amputation. Pulmonary hypertension Moderate pulmonary hypertension with an estimated peak RVSP 56 mmHg on echocardiogram in March 2020. Surgical History Surgical History (Updated 03/29/20 @ 23:24 by Debbie Bolanos PA-C) Amputation of fifth toe of left foot Due to osteomyelitis. History of bilateral cataract extraction Family History Family History Mother , heart attack Diabetes mellitus Father Diabetes mellitus Cerebrovascular accident Leukemia Social History Social History (Updated 03/29/20 @ 23:26 by Debbie Bolanos PA-C) Social History: The patient lives in [place]. 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 She is a lifelong nonsmoker. No alcohol or illicit substance use. Gender identity (if verbalized by the patient): Female Spir
--- NOTE | 2020-03-29 20:37 | PC.NURSE ---
Pharmacy called about status of Versed drip that had been ordered for this patient. Pharmacy states that she will make the drip at time.
[2020-03-29] MEDS: SODIUM CHLORIDE 0.9% IV 1,000 ML 125 ML IV CONT (20:55)
[2020-03-29 21:05] LABS: Lactic Acid 0.9 mmol/L (0.7-2.1)
--- NOTE | 2020-03-29 21:50 | ADMGEN ---
This patient, Shaniqua Oakley, was admitted to Intensive Care Unit-12. Patient/family oriented to hospital policies and general routines including ID bracelet, bed and alarms, visiting hours, pain management, procedures, bathroom and other care routines, personal items, smoking policy, room service/diet, and visiting hours. Information on how to activate the Rapid Response Team has been discussed. Patient/Family are encouraged to report perceived risks to care and to ask questions if they do not understand what they are told or what they should do.
--- NOTE | 2020-03-29 22:00 | PCRCNOTE ---
PT TRANSPORTED ON EV300 VENTILATOR WITH ORDERED SETTINGS FROM ED8 TO ICU 12. NO ADVERSE EVENTS NOTED.
[2020-03-29 22:47] LABS: Troponin I 0.841 ng/mL (0.000-0.034)
[2020-03-30] VITALS (22 sets, daily range): BP systolic 105–163; BP diastolic 45–80; PULSE 60–70; RESP 16–20; TEMP 36.6–37.8; O2SAT 96–100; BMI 54.7
[2020-03-30 00:01] LABS: Alveolar/Arterial O2 Gradient 168.8 mmHg; Base Excess ABG -5.7 mEq/l (+/-2.0); Carboxyhemoglobin 0.3 % THb (0-2.0); Device VENTILATOR; Fractional Inspired Oxygen 100 %; HCO3 ABG 18.8 mEq/l (22.0-26.0); Methemoglobin ABG 0.3 %THb (0-1.5); Modified Allen's Test Unable to perform; Oxygen Content ABG 19.4 %vol (16.0-22.0); Oxygen Saturation ABG 99.9 % (95.0-100.0); Oxyhemoglobin 98.4 % THb (90.0-100.0); PCO2 ABG 33.8 mmHg (35.0-45.0); PO2 ABG 510.4 mmHg (80.0-100.0); Site Drawn LEFT RADIAL; pH ABG 7.363 (7.350-7.450)
[2020-03-30 00:02] LABS: Arterial Blood Gas PEEP 12 cmH2O; Arterial Blood Gas Tidal Volume 400 ml; Arterial Blood Gas Vent Mode ASSIST CONTROL; Arterial Blood Gas Ventilator rate 18 /MIN
[2020-03-30 02:00] LABS: Glucose Point of Care 118 (65-105)
[2020-03-30] MEDS: TIMOLOL MALEATE 0.5% OP SOLN 5 ML BOTTLE 1 DROP EACH EYE ×3 (04:07→20:27)
[2020-03-30] MEDS: BRIMONIDINE TARTRATE 0.2% OP SOLN 5 ML BTL 1 DROP EACH EYE ×3 (04:07→20:27)
[2020-03-30 05:43] LABS: Base Excess ABG -5.9 mEq/l (+/-2.0); Carboxyhemoglobin 0.3 % THb (0-2.0); Fractional Inspired Oxygen 70 %; HCO3 ABG 18.8 mEq/l (22.0-26.0); Methemoglobin ABG 0.3 %THb (0-1.5); Oxygen Content ABG 17.9 %vol (16.0-22.0); Oxygen Saturation ABG 99.7 % (95.0-100.0); Oxyhemoglobin 98.1 % THb (90.0-100.0); PCO2 ABG 34.6 mmHg (35.0-45.0); PO2 ABG 306.9 mmHg (80.0-100.0); PO2 FiO2 Ratio Arterial Blood 4.38 %; Reduced Hemoglobin 1.3 %THb (0-5.0); Total Hemoglobin 12.4 g/dL (12.0-18.0); pH ABG 7.353 (7.350-7.450)
[2020-03-30 05:44] LABS: Arterial Blood Gas PEEP 12 cmH2O; Arterial Blood Gas Tidal Volume 400 ml; Arterial Blood Gas Vent Mode ASSIST CONTROL; Arterial Blood Gas Ventilator rate 18 /MIN; Device VENTILATOR; Modified Allen's Test Pass; Site Drawn LEFT RADIAL
--- NOTE | 2020-03-30 06:00 | ECG_ITS ---
Measurements Intervals [place] Rate: 62 P: 56 [place]: 147 QRS: 54 QRSD: 93 T: 49 QT: 424 QTc: 431 Interpretive Statements SINUS RHYTHM VENTRICULAR PREMATURE COMPLEX INCOMPLETE RIGHT BUNDLE BRANCH BLOCK BORDERLINE ST-T WAVE ABNORMALITY- DIFFUSE LEADS BASELINE ARTIFACT- V1 BORDERLINE ECG Electronically Signed On 03-30-2020 7:46:48 VINER OPERATOR by Garrett Bucio D.O.
[2020-03-30] MEDS: CENTRAL LINE FLUSH 10 ML IV PUSH ×4 (06:05→20:28)
[2020-03-30 06:29] LABS: Glucose Point of Care 130 (65-105)
[2020-03-30 06:33] LABS: Basophils Percent Auto 0.2 % (0.2-1.2); Eosinophils Percent Auto 0.3 % (0-4.4); Hematocrit 36.4 % (37.0-47.0); Immature Granulocyte Absolute 0.05 K/mm3 (0.00-0.031); Immature Granulocyte Percent A 0.5 % (0-0.5); Lymphocytes Absolute Auto 0.98 K/mm3 (0.9-3.2); Lymphocytes Percent Auto 9.3 % (18.3-44.2); Mean Platelet Volume 11.2 fl (7.4-10.4); Monocytes Absolute Auto 0.7 K/mm3 (0.1-0.6); Monocytes Percent Auto 6.7 % (2.6-8.5); Neutrophils Absolute Auto 8.8 K/mm3 (1.3-6.7); Platelet Count Result 181 k/mm3 (150-375); Red Blood Count 4.61 M/mm3 (4.2-5.4); Red Cell Distribution Width 14.6 % (11.5-14.5); White Blood Count 10.6 K/mm3 (4.5-10.0)
[2020-03-30 06:43] LABS: Hemoglobin A1C 9.6 % (<5.7)
[2020-03-30 06:45] LABS: Alanine Aminotransferase 52 U/L (4-35); Albumin Level 3.3 g/dL (3.5-5.1); Alkaline Phosphatase 84 U/L (38-126); Anion Gap 9 mmol/L (8-16); Aspartate Amino Transferase 53 U/L (14-36); Blood Urea Nitrogen 64 mg/dL (7-17); Calcium 9.2 mg/dL (8.4-10.2); Carbon Dioxide 23 mmol/L (22-30); Chloride 108 mmol/L (98-107); Estimated CRCL calculation 27 ml/min; Estimated Glomerular Filt Rate 21; Glucose 127 mg/dL (65-105); Magnesium 2.2 mg/dL (1.6-2.3); Phosphorus 5.6 mg/dL (2.5-4.5); Potassium 4.3 mmol/L (3.4-5.0); Sodium 140 mmol/L (137-145)
--- NOTE | 2020-03-30 08:37 | PM.CNCAR ---
Assessment and Plan Assessment and plan (1) Cardiac arrest: Code(s): I46.9 - Cardiac arrest, cause unspecified Status: Acute Assessment and Plan: Patient suffered a cardiac arrest, apparently was asystolic then had a PEA arrest with brief and successful resuscitation. Etiology is uncertain. PE is unlikely if the patient has been taking her Xarelto. No evidence of ventricular arrhythmias. No evidence of an acute ischemic event/ACS by EKG; she does have a mildly elevated troponin but that would be expected after an arrest. No evidence of significant bradycardia on last admission or this admission. Her neurologic status looks good so far. She is hemodynamically stable, not requiring pressors. She does have a questionably wide mediastinum which brings up the possibility of an aortic dissection. Has not had any CP. Will get a CT without contrast to evaluate aortic size. Would also consider a V/Q scan to evaluate for PE and continue anticoagulation if CT scan not suggestive of aortic aneurysm. Echo in the morning. Continue supportive care. (2) Afib: Code(s): I48.91 - Unspecified atrial fibrillation Status: Acute Assessment and Plan: History of PAF, converted to sinus rhythm on last admission while on sotalol. Has been chronically anticoagulated with Xarelto. (3) Diastolic congestive heart failure: Code(s): I50.30 - Unspecified diastolic (congestive) heart failure Status: Acute Assessment and Plan: Acute on chronic diastolic CHF noted overnight. However, holding off on diuretics because of acute kidney injury. (4) QT prolongation: Code(s): R94.31 - Abnormal electrocardiogram [ECG] [EKG] Status: Acute Assessment and Plan: QT prolongation has been noted since discharge, but no significant arrhythmias seen. Discontinue sotalol. (5) CKD (chronic kidney disease): Qualifiers: Chronic kidney disease stage: unspecified stage Qualified Code(s): N18.9 - Chronic kidney disease, unspecified Code(s): N18.9 - Chronic kidney disease, unspecified Status: Chronic Assessment and Plan: MARC/CKD, the some slight improvement of creatinine overnight, followed by Dr. Florian (6) H/O: HTN (hypertension): Code(s): Z86.79 - Personal history of other diseases of the circulatory system Status: Acute Assessment and Plan: Tends to run a bit high, will continue to follow. Additional Plan Discussed case with Dr. Gan and extensively with Dr. May. History of Present Illness History of Present Illness Consult date/time: 03/30/20 08:37 Reason For Visit: s/p cardiac arrest Narrative: DOS 03/30/2020 Shaniqua Oakley is an unfortunate 69 y.o. female whom we were asked to see by the hospitalists for our advice and opinion regarding her cardiac arrest, in consultation. Ms. Oakley was hospitalized 03/25/2020 for PAF RVR and CHF. She was loaded on sotalol, converted to NSR, and diuresed, with aggravation of her CKD. Furosemide was held and sotalol was reduced. She was discharged yesterday feeling well. Her brother drove her home but she was too weak to get into her house (I believe she occasionally gets around in a W/C) so EMS was called to help transport her into her house. While patient was trying to get into the house with the help of paramedics patient collapsed as per the EMS patient had in asystole followed by PEA, CPR was initiated 1 round of epi was given and patient regained pulse and was later transported to ER. Upon arrival patient was still unresponsive and intubated. Audrey
[2020-03-30 10:02] LABS: Glucose Point of Care 126 (65-105)
[2020-03-30 11:07] LABS: Troponin I 0.975 ng/mL (0.000-0.034)
[2020-03-30 12:21] LABS: Glucose Point of Care 124 (65-105)
--- NOTE | 2020-03-30 13:43 | PM.CNNEP ---
Assessment and Plan Assessment and plan (1) CKD (chronic kidney disease): Qualifiers: Chronic kidney disease stage: unspecified stage Qualified Code(s): N18.9 - Chronic kidney disease, unspecified Code(s): N18.9 - Chronic kidney disease, unspecified Status: Acute Assessment and Plan: patient has chronic kidney disease. This is most likely on the basis of hypertension and diabetes. She has nephrosis. Her baseline creatinine seems to run at about 1.8-2.0. (2) MARC (acute kidney injury): Code(s): N17.9 - Acute kidney failure, unspecified Status: Acute Assessment and Plan: The patient has acute kidney injury. Renal ultrasound is unremarkable. She does have nephrotic range proteinuria. Most likely from her diabetes and this is not acute. Her creatinine ria from 2-2.8 with diuretics. This was on its way down with holding the diuretics. Currently her creatinine is about the same. (3) Cardiac arrest: Code(s): I46.9 - Cardiac arrest, cause unspecified Status: Acute Assessment and Plan: The patient had a cardiac arrest. Her rhythm is good right now. She is on the ventilator. Cardiology saw the patient today. (4) CHF (congestive heart failure): Qualifiers: Heart failure chronicity: unspecified Heart failure type: unspecified Qualified Code(s): I50.9 - Heart failure, unspecified Code(s): I50.9 - Heart failure, unspecified Status: Acute Assessment and Plan: The patient has diastolic dysfunction. She also has paroxysmal atrial fibrillation. Heart rate is well controlled. (5) KIERRA (obstructive sleep apnea): Code(s): G47.33 - Obstructive sleep apnea (adult) (pediatric) Status: Acute Assessment and Plan: She is on the ventilator now. (6) Essential hypertension: Code(s): I10 - Essential (primary) hypertension Status: Chronic (7) Diabetes mellitus: Qualifiers: Diabetes mellitus type: type 2 Diabetes mellitus terminal operator insulin use: with chcf use Diabetes mellitus complication status: with kidney complications Diabetes mellitus complication detail: with chronic kidney disease Chronic kidney disease stage: stage 3 (moderate) Chronic kidney disease stage 3 subtype: unspecified whether 3a or 3b Qualified Code(s): E11.22 - Type 2 diabetes mellitus with diabetic chronic kidney disease; N18.30 - Chronic kidney disease, stage 3 unspecified; Z79.4 - long term (current) use of insulin Code(s): E11.9 - Type 2 diabetes mellitus without complications Status: Chronic History of Present Illness Reason for Consult Consult date: 03/30/20 Chief Complaint Chief complaint: s/p cardiac arrest History of Present Illness Narrative: Shaniqua is a very pleasant 69-year-old lady who has multiple medical problems including chronic kidney disease stage 3 with a baseline creatinine of 2, hypertension, diabetes, chronic atrial fibrillation, arthritis, and glaucoma. She was just in the hospital for atrial fibrillation. She was discharged but then at home had a cardiac arrest. The field collector were still there and did CPR And ACLS procedure. The patient improved. She was intubated and taken to the emergency room. She was transferred up to the ICU. Currently she is on the ventilator and sedated. Review of Systems Review of Systems: ROS unobtainable: Yes unobtainable due to medical condition PMFSH Past Medical History Medical History Arthritis Atrial fibrillation Chronic kidney disease, stage 4 (severe) Current use of chcf anticoagulation Diabetic peripheral neuropathy Diastolic congestive heart failure Echocardiogram on 03/25/2020 showed diastolic dysfunction grade 2 with an ejection fraction of 55%, moderate mitral and tricuspid valve regurgitation, and moderate pulmonary hypertension with an estimated peak RVS
--- NOTE | 2020-03-30 14:49 | WPDCNINT ---
Assessment and Plan Assessment and plan (1) Cardiac arrest: Code(s): I46.9 - Cardiac arrest, cause unspecified Status: Acute Assessment and Plan: Patient had a PEA arrest as soon as she released home after syncopal episode and bradycardia. Patient has been on sotalol. PE is in the differential but patient has been on Xarelto has been taking it long-term there is no evidence of ventricular arrhythmias on the EKG, there is some prolonged QT seen on EKG this morning but no arrhythmias. Acute coronary syndrome by EKG. Phone in the slightly elevated but plateaued likely related to cardiac arrest. -patient has been hemodynamically stable at this time -no pressor requirements -CT scan of the chest did not show any aortic aneurysm -echocardiogram in the morning on 03/31 (2) Atrial fibrillation with rapid ventricular response: Code(s): I48.91 - Unspecified atrial fibrillation Status: Acute Assessment and Plan: Patient with history of atrial fibrillation, has been in sinus rhythm, rate control. Will hold sotalol for now -continue Xarelto (3) Acute respiratory failure: Code(s): J96.00 - Acute respiratory failure, unspecified whether with hypoxia or hypercapnia Status: Acute Assessment and Plan: Acute respiratory failure likely related to cardiac arrest, patient has been intubated on mechanical ventilation. -will wean FiO2 and PEEP -sedated with Versed infusion only -PE unlikely as patient has been on Xarelto, (4) Diastolic congestive heart failure: Code(s): I50.30 - Unspecified diastolic (congestive) heart failure Status: Acute Assessment and Plan: Patient with diastolic heart failure, chest x-ray shows mild pulmonary edema -holding of diuretics due to CKD (5) QT prolongation: Code(s): R94.31 - Abnormal electrocardiogram [ECG] [EKG] Status: Acute Assessment and Plan: QT prolongation as seen on EKG this morning, no arrhythmias noted, discussed with cardiology discussed with cardiology this could have been [place] but nothing has been documented. Magnesium and potassium levels of within normal limits -will keep her off sotalol for now (6) MARC (acute kidney injury): Code(s): N17.9 - Acute kidney failure, unspecified Status: Acute Assessment and Plan: Baseline creatinine 1.8-2.0 -currently creatinine is 2.8. -could be some insult secondary to cardiac arrest. -will continue to monitor closely, hold diuretics for now Additional Plan Family has been updated Code status: Full code Critical care time spent: 47 minutes Discussed with cardiology and nephrology Due to a high probability of clinically significant, life threatening deterioration, the patient required my highest level of preparedness to intervene emergently and I personally spent this critical care time directly and personally managing the patient. This critical care time included obtaining a history; examining the patient; pulse oximetry; ordering and review of studies; arranging urgent treatment with development of a management plan; evaluation of patient's response to treatment; frequent reassessment; and discussions with other providers. It was exclusive of separately billable procedures and treating other patients and teaching time. Please see Assessment and Plan section and the rest of the note for further information on patient assessment and treatment Fork Repairer Consult Note Consult date: 03/30/20 Time Seen: 07:04 Reason for consult: Cardiac arrest, syncope, acute respiratory failure, chronic renal disease, atrial fibrillation HPI: Shaniqua Oakley is a 69 year old female with significant past medical history of atrial fibrillation on Xarelto, chronic kidney disease stage 4, diastolic heart failure, essential hypertension, type 2 diabetes, obstructive sleep apnea, moderate pulmonary hypertension presented the ED via EMS from home with cardiac arrest. Records patient
[2020-03-30] MEDS: RIVAROXABAN 15 MG TABLET PO (17:01)
[2020-03-30 19:09] LABS: Glucose Point of Care 128 (65-105)
[2020-03-31] VITALS (23 sets, daily range): BP systolic 118–158; BP diastolic 50–82; PULSE 68–135; RESP 16–26; TEMP 37.2–37.8; O2SAT 93–99; BMI 53.3
--- NOTE | 2020-03-31 | ECHO_ITS ---
Patient Info Name: Shaniqua Oakley Age: 69 years : 1950 Gender: Female Ht: 64 in Wt: 320 lbs BSA: 2.65 m2 HR: 70 bpm BP: 149 / 56 mmHg Heart Rhythm: Sinus Rhythm Technical Quality: Fair Exam Date: 03/31/2020 10:08 AM Exam Location: [facility] Patient Status: Inpatient Admit Date: 03/29/2020 Staff Ordering Physician: Jenny Gonzalez MD Bunch Breaker Machine Operator: Thanh Cox, RDCANDIDO Attending Provider: Monserrat Fletcher MD Referring Physician: Lisa WILSON; Exam Type: CA echo dop color flow w con Study Info Indications I46.9 - Cardiac arrest, cause unspecified Complete two-dimensional, color flow and Doppler transthoracic echocardiogram is performed with contrast to opacify the left ventricle and to improve the deliniation of the left ventricle endocardial borders. Contrast/Agitated Saline Contrast/Ag. Saline: Definity Amount: 2.00 ml Administered By: Kristyn Peters RN Existing IV Access: Yes History/Risk Factors Cardiac arrest; Afib, HFpEF, pHTN, HTN, CKD4. Summary 1. Left ventricular chamber dimension is normal. 2. Left ventricular systolic function is hyperdynamic, estimated at >70%. 3. There is mildly increased left ventricular wall thickness. 4. The left ventricular diastolic function is grade I diastolic dysfunction. 5. Left atrial chamber dimension is moderately enlarged. 6. There is mild mitral valve regurgitation. 7. There is mild to moderate tricuspid valve regurgitation. 8. Severe pulmonary hypertension, estimated pulmonary arterial systolic pressure is 68 mmHg. Left Ventricle Left ventricular chamber dimension is normal. Left ventricular systolic function is hyperdynamic, estimated at >70%. There is mildly increased left ventricular wall thickness. The left ventricular diastolic function is grade I diastolic dysfunction. Right Ventricle Right ventricular chamber dimension is normal. Right ventricular systolic function is normal. Left Atria Left atrial chamber dimension is moderately enlarged. Right Atria Right atrial chamber dimension is normal. Atrial Septum Intact interatrial septum visualized by color flow imaging. Aortic Valve The aortic valve is trileaflet. There is mild aortic valve sclerosis. There is no aortic valve stenosis. There is trace aortic valve regurgitation. Pulmonic Valve The pulmonic valve is normal. There is no pulmonic valve stenosis. There is trace pulmonic regurgitation. Mitral Valve The mitral valve has calcified annulus. There is no mitral valve stenosis. There is mild mitral valve regurgitation. Tricuspid Valve The tricuspid valve leaflets are normal. There is no significant tricuspid valve stenosis. There is mild to moderate tricuspid valve regurgitation. Severe pulmonary hypertension, estimated pulmonary arterial systolic pressure is 68 mmHg. Pericardium/Pleural The pericardium appears normal. There is no pericardial effusion. Inferior Vena Cava Dilated inferior vena cava with <50% collapse upon inspiration consistent with elevated right atrial pressure, 15 mmHg. Aorta The aortic root size at the sinus of Valsalva is normal. The prox ascending aorta size is normal. Left Ventricular Outflow Tract Name Value Normal
[2020-03-31 00:02] LABS: Glucose Point of Care 124 (65-105)
[2020-03-31] MEDS: CENTRAL LINE FLUSH 10 ML IV PUSH ×4 (05:07→20:58)
[2020-03-31 05:26] LABS: Alveolar/Arterial O2 Gradient 205.6 mmHg; Arterial Blood Gas PEEP 8 cmH2O; Arterial Blood Gas Vent Mode CMV; Arterial Blood Gas Ventilator rate 18 /MIN; Base Excess ABG -5.2 mEq/l (+/-2.0); Carboxyhemoglobin 0.3 % THb (0-2.0); Device VENTILATOR; Fractional Inspired Oxygen 50 %; HCO3 ABG 20.1 mEq/l (22.0-26.0); Methemoglobin ABG 0.2 %THb (0-1.5); Modified Allen's Test Pass; Oxygen Content ABG 16.8 %vol (16.0-22.0); Oxygen Saturation ABG 97.7 % (95.0-100.0); Oxyhemoglobin 96.2 % THb (90.0-100.0); PCO2 ABG 38.3 mmHg (35.0-45.0); PO2 ABG 107.8 mmHg (80.0-100.0); PO2 FiO2 Ratio Arterial Blood 2.16 %; Reduced Hemoglobin 3.3 %THb (0-5.0); Site Drawn LEFT RADIAL; Total Hemoglobin 12.3 g/dL (12.0-18.0); pH ABG 7.338 (7.350-7.450)
[2020-03-31 05:27] LABS: Arterial Blood Gas Tidal Volume 400 ml
[2020-03-31 05:33] LABS: Alanine Aminotransferase 45 U/L (4-35); Albumin Level 3.1 g/dL (3.5-5.1); Alkaline Phosphatase 82 U/L (38-126); Anion Gap 10 mmol/L (8-16); Aspartate Amino Transferase 38 U/L (14-36); Bilirubin,Total 1.3 mg/dL (0.2-1.3); Blood Urea Nitrogen 66 mg/dL (7-17); Calcium 9.3 mg/dL (8.4-10.2); Carbon Dioxide 24 mmol/L (22-30); Chloride 109 mmol/L (98-107); Estimated CRCL calculation 29 ml/min; Estimated Glomerular Filt Rate 24; Glucose 161 mg/dL (65-105); Magnesium 2.3 mg/dL (1.6-2.3); Phosphorus 5.1 mg/dL (2.5-4.5); Potassium 4.2 mmol/L (3.4-5.0); Sodium 143 mmol/L (137-145)
[2020-03-31] MEDS: BRIMONIDINE TARTRATE 0.2% OP SOLN 5 ML BTL 1 DROP EACH EYE ×2 (09:46→20:58)
[2020-03-31] MEDS: TIMOLOL MALEATE 0.5% OP SOLN 5 ML BOTTLE 1 DROP EACH EYE ×2 (09:46→20:58)
[2020-03-31] MEDS: FUROSEMIDE INJ 40 MG/4 ML VIAL IV PUSH (12:06)
[2020-03-31 12:11] LABS: Glucose Point of Care 162 (65-105)
--- NOTE | 2020-03-31 13:05 | PM.PNNEP ---
Progress Note: A&P Assessment and Plan (1) MARC (acute kidney injury): Code(s): N17.9 - Acute kidney failure, unspecified Status: Acute Assessment and Plan: due to diuretic therapy and recent cardiac arrest renal ultrasound without acute issues but does have nephrotic range proteinuria creatinine slowly improving at this time follow trend of repeat labs and UOP (2) CKD (chronic kidney disease): Qualifiers: Chronic kidney disease stage: unspecified stage Qualified Code(s): N18.9 - Chronic kidney disease, unspecified Code(s): N18.9 - Chronic kidney disease, unspecified Status: Chronic Assessment and Plan: baseline creatinine runs ~ 1.8 0 2.0mg/dl likely due to hypertension and diabetes (3) Cardiac arrest: Code(s): I46.9 - Cardiac arrest, cause unspecified Status: Acute Assessment and Plan: Cardiology following due to sotalol(?) (4) Acute respiratory failure: Code(s): J96.00 - Acute respiratory failure, unspecified whether with hypoxia or hypercapnia Status: Acute Assessment and Plan: due to cardiac arrest on ventilator support wean as tolerated (5) Essential hypertension: Code(s): I10 - Essential (primary) hypertension Status: Chronic Assessment and Plan: reasonable hemodynamics at this time follow trend (6) Diabetes mellitus: Qualifiers: Chronic kidney disease stage: stage 3 (moderate) Chronic kidney disease stage 3 subtype: unspecified whether 3a or 3b Diabetes mellitus complication detail: with chronic kidney disease Diabetes mellitus complication status: with kidney complications Diabetes mellitus fci insulin use: with fci use Diabetes mellitus type: type 2 Qualified Code(s): E11.22 - Type 2 diabetes mellitus with diabetic chronic kidney disease; N18.30 - Chronic kidney disease, stage 3 unspecified; Z79.4 - half-way (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 Subjective Date/time seen: 03/31/20 13:05 Patient remains on ventilator support but awake and alert as well as following commands; making reasonably urine output and remains hemodynamically stable; no acute events overnight or earlier this AM; no apparent distress noted at the time of my visit. Exam Narrative: Exam Narrative: General: WD/WN AA female in NAD; intubated Heart: normal S1 and S2; no rub Lungs: clear to auscultation Abdomen: soft, nontender, nondistended, positive bowel sounds Extremities: no cyanosis or clubbing; no edema Skin: warm and dry Objective Data Vital Signs Vital Signs: Vital Signs Temp Pulse Resp BP Pulse Ox 03/31/20 12:00 37.4 C 71 24 H 145/55 H 97 03/31/20 10:47 72 97 03/31/20 10:00 37.3 C 72 20 149/56 H 97 03/31/20 08:29 74 93 03/31/20 08:00 37.2 C 72 18 142/66 H 95 03/31/20 06:00 37.4 C 71 18 136/57 L 96 03/31/20 05:15 72 97 03/31/20 04:00 37.5 C 69 18 146/50 H 99 03/31/20 02:00 37.5 C 71 18 149/51 H 99 03/31/20 01:27 68 94 03/31/20 00:00 37.6 C 69 18 118/63 97 03/30/20 22:59 68 96 03/30/20 22:00 37.6 C H 69 18 142/45 H 98 03/30/20 20:20 70 97 03/30/20 20:00 37.7 C H 68 18 146/53 H 99 Intake/Output Intake/Output: Intake & Output 03/28/20 03/29/20 03/30/20 03/31/20 23:59 23:59 23:59 23:59 Intake Total 1000 8 22 Output Total 950 750 Balance 1000 -555 -354 Meds/Results Medications: Active Medications Generic Name Dose Route Start Last Admin Trade Name Arenq PRN Reason Stop Dose Admin Brimonidine Tartrate 1 drop 03/29/20 23:45 03/31/20 09:46 Brimonidine Tartrate 0.2% Op Soln 5 Ml Btl EACH EYE 1 drop Q12HR JANKI Administration Dextrose 12.5 gm 03/29/20 23:40 Dextrose 50% 25
--- NOTE | 2020-03-31 13:10 | PM.PNCARD ---
Progress Note: A&P Additional Plan 69-year-old lady with: Unexpected out of hospital arrest following recent discharge with recurrence of atrial fibrillation. Since sotalol was just started during the admission last week the possibility of proarrhythmia due to this agent is the most likely explanation of this. Echocardiogram today demonstrates hyperdynamic LV systolic function and evidence of secondary pulmonary hypertension. Fortunately her mental status seems to be much better she is alert and responsive although intubated still. Systemic anticoagulation will be continued with Xarelto and she will need to be started on alternative antiarrhythmic therapy when she is extubated. There is no evidence of acute coronary syndrome and echocardiogram does not show any evidence of any regional wall motion abnormalities. Eric Hall MD [facility] Subjective Date/time seen: 03/31/20 13:10 Interval history: Follow-up visit in this 69-year-old woman with: Unexpected and [id number] asystolic arrest also with evidence of pulseless electrical activity during resuscitation effort. Reason for this is not explained as mentioned in consult note yesterday. One must consider the possibility of proarrhythmia due to sotalol which was just started during last admission last week. Obviously agent has been stopped and she is maintaining sinus rhythm. Patient is intubated in ICU room 12. Is arousable and follows commands. Exam Const: General: comfortable and no acute distress Other: Morbidly obese black female who appears to be remarkably comfortable being intubated and is alert and follows commands. HENMT: Mouth: Yes moist mucous membranes Eyes: Sclera: sclerae normal Pupils: Equal, round and reactive pupils present Neck: Neck: supple Other: Unable to assess JVD given her body habitus Resp: Effort & Inspection: normal respiratory effort Auscultation: clear to auscultation bilaterally Cardio: Rate: regular rate Rhythm: regular rhythm GI: GI Palp: Yes Soft to palpation Auscultation: normal bowel sounds Extrem: General: normal to inspection Objective Data Vital Signs Vital Signs: Vital Signs - 24 hr 03/30/20 14:00 03/30/20 14:55 03/30/20 16:00 Temperature 37.7 C H Pulse Rate 66 66 66 Respiratory Rate 18 18 Blood Pressure 152/52 H 146/55 H Pulse Oximetry 99 98 100 03/30/20 17:15 03/30/20 18:00 03/30/20 20:00 Temperature 37.7 C H Pulse Rate 67 67 68 Respiratory Rate 16 18 Blood Pressure 155/53 H 146/53 H Pulse Oximetry 99 97 99 03/30/20 20:20 03/30/20 22:00 03/30/20 22:59 Temperature 37.6 C H Pulse Rate 70 69 68 Respiratory Rate 18 Blood Pressure 142/45 H Pulse Oximetry 97 98 96 03/31/20 00:00 03/31/20 01:27 03/31/20 02:00 Temperature 37.6 C 37.5 C Pulse Rate 69 68 71 Respiratory Rate 18 18 Blood Pressure 118/63 149/51 H Pulse Oximetry 97 94 99 03/31/20 04:00 03/31/20 05:15 03/31/20 06:00 Temperature 37.5 C 37.4 C Pulse Rate 69 72 71 Respiratory Rate 18 18 Blood Pressure 146/50 H 136/57 L Pulse Oximetry 99 97 96 03/31/20 08:00 03/31/20 08:29 03/31/20 10:00 Temperature 37.2 C 37.3 C Pulse Rate 72 74 72 Respiratory Rate 18 20 Blood Pressure 142/66 H 149/56 H Pulse Oximetry 95 93 97 03/31/20 10:47 Temperature Pulse Rate 72 Respiratory Rate Blood Pressure Pulse Oximetry 97 Intake/Output Intake/Output: Intake & Output 03/28/20 03/29/20 03/30/20 03/31/20 23:59 23:59 23:59 23:59 Intake Total 1000 8 22 Output Total 950 750 Balance 1000 -548 -973 Meds/Results Medications: Active Medications Generic Name Dose Route Start Last Admin Trade Name Freq PRN Reason Stop Dose Admin Brimonidine Tartrate 1 drop 03/29/20 23:45 03/31/20 09:46 Brimonidine Tartrate 0.2% Op Soln 5 Ml Btl EACH EYE 1 drop Q12HR JANKI Administration Dextrose 12.5 gm 03/29/20 23:40 Dextrose 50% 25 Gm/50 Ml Syringe IV PUSH PRN PRN Hypoglycemia
--- NOTE | 2020-03-31 15:11 | WPDINTPN ---
Progress Note: A&P Assessment and Plan (1) Cardiac arrest: Code(s): I46.9 - Cardiac arrest, cause unspecified Status: Acute Assessment and Plan: Patient had a PEA arrest as soon as she released home after syncopal episode and bradycardia. Patient has been on sotalol this was recently started, since it is approved rhythmic this could be the likely cause of her cardiac arrest.. PE is in the differential but patient has been on Xarelto has been taking it long-term there is no evidence of ventricular arrhythmias on the EKG, there is some prolonged QT seen on EKG this morning but no arrhythmias. Acute coronary syndrome by EKG. Troponin slightly elevated but plateaued likely related to cardiac arrest. -patient has been hemodynamically stable at this time -no pressor requirements -CT scan of the chest did not show any aortic aneurysm -echocardiogram 03/31/2020 showed > 70%, grade 1 diastolic dysfunction, [id number] tricuspid regurg, severe pulmonary hypertension with RVSP of 68. No wall motion abnormalities was seen (2) Atrial fibrillation with rapid ventricular response: Code(s): I48.91 - Unspecified atrial fibrillation Status: Acute Assessment and Plan: Patient with history of atrial fibrillation, has been in sinus rhythm, rate control. Will hold sotalol for now -continue Xarelto (3) Acute respiratory failure: Code(s): J96.00 - Acute respiratory failure, unspecified whether with hypoxia or hypercapnia Status: Acute Assessment and Plan: Acute respiratory failure likely related to cardiac arrest, patient has been intubated on mechanical ventilation. -will wean FiO2 and PEEP -off all sedation, will place patient on SBT and evaluate for extubation -PE unlikely as patient has been on Xarelto, (4) Diastolic congestive heart failure: Code(s): I50.30 - Unspecified diastolic (congestive) heart failure Status: Acute Assessment and Plan: Patient with diastolic heart failure, chest x-ray shows mild pulmonary edema -holding of diuretics due to CKD (5) QT prolongation: Code(s): R94.31 - Abnormal electrocardiogram [ECG] [EKG] Status: Acute Assessment and Plan: QT prolongation as seen on EKG this morning, no arrhythmias noted, discussed with cardiology discussed with cardiology this could have been dorsalis but nothing has been documented. Magnesium and potassium levels of within normal limits -will keep her off sotalol for now (6) MARC (acute kidney injury): Code(s): N17.9 - Acute kidney failure, unspecified Status: Acute Assessment and Plan: Baseline creatinine 1.8-2.0 -currently creatinine is 2.4 this morning -could be some insult secondary to cardiac arrest. -will continue to monitor closely, hold diuretics for now Additional Plan Family has been updated Code status: Full code Critical care time spent: 33 minutes Discussed with cardiology and nephrology Due to a high probability of clinically significant, life threatening deterioration, the patient required my highest level of preparedness to intervene emergently and I personally spent this critical care time directly and personally managing the patient. This critical care time included obtaining a history; examining the patient; pulse oximetry; ordering and review of studies; arranging urgent treatment with development of a management plan; evaluation of patient's response to treatment; frequent reassessment; and discussions with other providers. It was exclusive of separately billable procedures and treating other patients and teaching time. Please see Assessment and Plan section and the rest of the note for further information on patient assessment and treatment Subjective Date/time seen: 03/31/20 15:11 Interval history: Reason for consult: Cardiac arrest, syncope, acute respiratory failure, chronic renal disease, atrial fibrillation 03/31/2020: Patient seen examined
[2020-03-31 15:30] LABS: Alveolar/Arterial O2 Gradient 149.5 mmHg; Base Excess ABG -4.6 mEq/l (+/-2.0); Device VENTILATOR; Fractional Inspired Oxygen 40 %; Modified Allen's Test Unable to perform; Oxygen Content ABG 15.7 %vol (16.0-22.0); Oxygen Saturation ABG 96.3 % (95.0-100.0); Oxyhemoglobin 94.8 % THb (90.0-100.0); PCO2 ABG 40.4 mmHg (35.0-45.0); PO2 ABG 89.2 mmHg (80.0-100.0); PO2 FiO2 Ratio Arterial Blood 2.23 %; Site Drawn RIGHT RADIAL; Total Hemoglobin 11.7 g/dL (12.0-18.0); pH ABG 7.333 (7.350-7.450)
[2020-03-31 15:31] LABS: Arterial Blood Gas PEEP 5 cmH2O; Arterial Blood Gas Pressure Support 8 cmH2O; Arterial Blood Gas Vent Mode SPONTANEOUS
[2020-03-31 18:17] LABS: Glucose Point of Care 180 (65-105)
--- NOTE | 2020-03-31 20:00 | ECG_ITS ---
Measurements Intervals [employer] Rate: 133 P: AL: 0 QRS: 38 QRSD: 85 T: 120 QT: 311 QTc: 463 Interpretive Statements ATRIAL FIBRILLATION WITH RAPID VENTRICULAR RESPONSE INCOMPLETE RIGHT BUNDLE BRANCH BLOCK NONSPECIFIC ST & T-WAVE ABNORMALITY- INF/LAT LEADS ABNORMAL ECG Electronically Signed On 04-01-2020 7:20:00 EXECUTIVE ASSISTANT TO PRESIDENT by Garrett Bucio D.O.
[2020-03-31] MEDS: METOPROLOL TARTRATE INJ 5 MG/5 ML VIAL IV PUSH (21:22)
[2020-04-01] VITALS (15 sets, daily range): BP systolic 120–153; BP diastolic 65–95; PULSE 106–133; RESP 12–26; TEMP 36.6–37.3; O2SAT 95–100; BMI 10.0
[2020-04-01] MEDS: INSULIN ASPART (*BKC) 100 UNITS/ML SUB-Q ×5 (00:11→23:16)
[2020-04-01 01:29] LABS: Glucose Point of Care 204 (65-105)
[2020-04-01 04:24] LABS: Alveolar/Arterial O2 Gradient 56.6 mmHg; Base Excess ABG -4.4 mEq/l (+/-2.0); Carboxyhemoglobin 0.3 % THb (0-2.0); Fractional Inspired Oxygen 28 %; HCO3 ABG 21.7 mEq/l (22.0-26.0); Methemoglobin ABG 0.3 %THb (0-1.5); Oxygen Content ABG 15.7 %vol (16.0-22.0); Oxygen Saturation ABG 96.4 % (95.0-100.0); Oxyhemoglobin 94.7 % THb (90.0-100.0); PCO2 ABG 43.6 mmHg (35.0-45.0); PO2 ABG 91.6 mmHg (80.0-100.0); PO2 FiO2 Ratio Arterial Blood 3.27 %; Reduced Hemoglobin 4.7 %THb (0-5.0); Total Hemoglobin 11.7 g/dL (12.0-18.0); pH ABG 7.314 (7.350-7.450)
[2020-04-01 04:25] LABS: Device NASAL CANNULA; Modified Allen's Test Pass; Site Drawn LEFT RADIAL
[2020-04-01 04:26] LABS: Hematocrit 32.8 % (37.0-47.0); Hemoglobin 10.6 g/dL (12.0-15.0); Mean Corpuscular HGB Conc 32.3 g/dl (32-36); Mean Corpuscular Hemoglobin 25.3 pg (26-34); Mean Corpuscular Volume 78.3 fl (80-100); Mean Platelet Volume 11.1 fl (7.4-10.4); Platelet Count Result 157 k/mm3 (150-375); Red Blood Count 4.19 M/mm3 (4.2-5.4); Red Cell Distribution Width 14.4 % (11.5-14.5); White Blood Count 13.1 K/mm3 (4.5-10.0)
[2020-04-01 04:39] LABS: Alanine Aminotransferase 38 U/L (4-35); Albumin Level 3.3 g/dL (3.5-5.1); Alkaline Phosphatase 85 U/L (38-126); Anion Gap 7 mmol/L (8-16); Aspartate Amino Transferase 26 U/L (14-36); Bilirubin,Total 1.2 mg/dL (0.2-1.3); Blood Urea Nitrogen 66 mg/dL (7-17); Carbon Dioxide 29 mmol/L (22-30); Chloride 112 mmol/L (98-107); Estimated CRCL calculation 31 ml/min; Estimated Glomerular Filt Rate 26; Glucose 215 mg/dL (65-105); Magnesium 2.3 mg/dL (1.6-2.3); Phosphorus 4.3 mg/dL (2.5-4.5); Potassium 4.1 mmol/L (3.4-5.0); Sodium 148 mmol/L (137-145)
[2020-04-01 06:26] LABS: Glucose Point of Care 202 (65-105)
[2020-04-01] MEDS: CENTRAL LINE FLUSH 10 ML IV PUSH ×4 (06:28→19:56)
[2020-04-01] MEDS: FUROSEMIDE INJ 40 MG/4 ML VIAL IV PUSH (10:11)
[2020-04-01] MEDS: BRIMONIDINE TARTRATE 0.2% OP SOLN 5 ML BTL 1 DROP EACH EYE ×2 (10:11→19:55)
[2020-04-01] MEDS: TIMOLOL MALEATE 0.5% OP SOLN 5 ML BOTTLE 1 DROP EACH EYE ×2 (10:11→19:55)
--- NOTE | 2020-04-01 11:11 | PCDIET ---
ICU Rounding Note: Patient extubated; currently NPO except ice chips. ordering LIVESTOCK COMMISSION AGENT to evaluate prior to diet advancement. Last recorded weight is 140kg which is stable with last review. Bowel Motility: No documented BM as of yet. Labs Reviewed: Hgb (10.6), Hct (32.8), Glu (215), BUN (66), Cr (2.3), Cl (112), Na (148), Alb (3.3) Meds Noted: Diltiazem, Fentanyl, Novolog Additional Notes: No documented skin breakdown. Following daily in ICU rounds. Assessing/reassessing every 3 days.
--- NOTE | 2020-04-01 11:56 | PM.PNNEP ---
Progress Note: A&P Assessment and Plan (1) MARC (acute kidney injury): Code(s): N17.9 - Acute kidney failure, unspecified Status: Acute Assessment and Plan: due to diuretic therapy and recent cardiac arrest renal ultrasound without acute issues but does have nephrotic range proteinuria creatinine slowly improving at this time follow trend of repeat labs and UOP (2) CKD (chronic kidney disease): Qualifiers: Chronic kidney disease stage: unspecified stage Qualified Code(s): N18.9 - Chronic kidney disease, unspecified Code(s): N18.9 - Chronic kidney disease, unspecified Status: Chronic Assessment and Plan: baseline creatinine runs ~ 1.8 - 2.0mg/dl likely due to hypertension and diabetes (3) Cardiac arrest: Code(s): I46.9 - Cardiac arrest, cause unspecified Status: Acute Assessment and Plan: Cardiology following due to sotalol(?) (4) Acute respiratory failure: Code(s): J96.00 - Acute respiratory failure, unspecified whether with hypoxia or hypercapnia Status: Acute Assessment and Plan: due to cardiac arrest off ventilator support follow respiratory status (5) Essential hypertension: Code(s): I10 - Essential (primary) hypertension Status: Chronic Assessment and Plan: reasonable hemodynamics at this time follow trend (6) Diabetes mellitus: Qualifiers: Chronic kidney disease stage: stage 3 (moderate) Chronic kidney disease stage 3 subtype: unspecified whether 3a or 3b Diabetes mellitus complication detail: with chronic kidney disease Diabetes mellitus complication status: with kidney complications Diabetes mellitus long line teamster insulin use: with long line teamster use Diabetes mellitus type: type 2 Qualified Code(s): E11.22 - Type 2 diabetes mellitus with diabetic chronic kidney disease; N18.30 - Chronic kidney disease, stage 3 unspecified; Z79.4 - [facility] (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 Subjective Date/time seen: 04/01/20 11:56 Extubated yesterday and has remain stable from respiratory standpoint; no other acute issues or problems ovenight or earlier this AM; some confusion noted post extubation; no apparent distress or new concerns to report at this time. Exam Narrative: Exam Narrative: General: WD/WN AA female in NAD Heart: normal S1 and S2; no rub Lungs: clear to auscultation Abdomen: soft, nontender, nondistended, positive bowel sounds Extremities: no cyanosis or clubbing; no edema Skin: warm and intact Objective Data Vital Signs Vital Signs: Vital Signs Temp Pulse Resp BP Pulse Ox 04/01/20 08:00 36.6 C 114 H 26 H 134/84 95 04/01/20 06:49 111 H 145/74 H 04/01/20 06:00 117 H 22 H 137/74 96 04/01/20 04:00 37.1 C 116 H 20 136/95 H 96 04/01/20 02:00 118 H 24 H 150/83 H 100 04/01/20 00:00 37.3 C 133 H 23 H 133/75 98 03/31/20 22:35 129 H 139/79 03/31/20 22:02 135 H 138/68 03/31/20 22:00 127 H 20 154/73 H 96 03/31/20 21:35 125 H 97 03/31/20 21:22 125 H 03/31/20 20:00 37.2 C 120 H 26 H 131/74 96 03/31/20 18:00 37.5 C 74 16 143/82 H 98 03/31/20 16:00 37.4 C 75 16 158/62 H 97 03/31/20 15:58 97 03/31/20 14:27 73 97 03/31/20 14:00 37.4 C 73 20 144/57 H 96 03/31/20 12:00 37.4 C 71 24 H 145/55 H 97 Intake/Output Intake/Output: Intake & Output 03/29/20 03/30/20 03/31/20 04/01/20 23:59 23:59 23:59 23:59 Intake Total 1000 8 22 100 Output Total 950 1450 850 Balance 0327 -739 -3001 -537 Meds/Results Medications: Active Medications Generic Name Dose Route Start Last Admin Trade Name Freq PRN Reason Stop Dose Admin Brimonidine Tartrate 1 drop 03/29/20 23:45 04/01/20 10:11 Brimonidine Tar
[2020-04-01 12:26] LABS: Glucose Point of Care 217 (65-105)
--- NOTE | 2020-04-01 12:33 | WPDINTPN ---
Progress Note: A&P Assessment and Plan (1) Cardiac arrest: Code(s): I46.9 - Cardiac arrest, cause unspecified Status: Acute Assessment and Plan: Patient had a PEA arrest as soon as she released home after syncopal episode and bradycardia. Patient has been on sotalol this was recently started, since it is approved rhythmic this could be the likely cause of her cardiac arrest.. PE is in the differential but patient has been on Xarelto has been taking it long-term there is no evidence of ventricular arrhythmias on the EKG, there is some prolonged QT seen on EKG this morning but no arrhythmias. Acute coronary syndrome by EKG. Troponin slightly elevated but plateaued likely related to cardiac arrest. -patient has been hemodynamically stable at this time -no pressor requirements -CT scan of the chest did not show any aortic aneurysm -echocardiogram 03/31/2020 showed > 70%, grade 1 diastolic dysfunction, [id number] tricuspid regurg, severe pulmonary hypertension with RVSP of 68. No wall motion abnormalities was seen -appreciate cardiology following the patient (2) Atrial fibrillation with rapid ventricular response: Code(s): I48.91 - Unspecified atrial fibrillation Status: Acute Assessment and Plan: Patient with history of atrial fibrillation, has been in sinus rhythm, rate control. Will hold sotalol for now -continue Xarelto -patient went into AFib RVR overnight requiring Cardizem infusion per cardiology (3) Acute respiratory failure: Code(s): J96.00 - Acute respiratory failure, unspecified whether with hypoxia or hypercapnia Status: Acute Assessment and Plan: Acute respiratory failure likely related to cardiac arrest, patient has been intubated on mechanical ventilation. - Extubated successfully on 03/31/2020 -currently on 2 L nasal cannula -up in chair -PT/OT to follow the patient along with speech for bedside swallow test (4) Diastolic congestive heart failure: Code(s): I50.30 - Unspecified diastolic (congestive) heart failure Status: Acute Assessment and Plan: Patient with diastolic heart failure, chest x-ray shows mild pulmonary edema -holding of diuretics due to CKD (5) QT prolongation: Code(s): R94.31 - Abnormal electrocardiogram [ECG] [EKG] Status: Acute Assessment and Plan: QT prolongation as seen on EKG this morning, no arrhythmias noted, discussed with cardiology discussed with cardiology this could have been dorsalis but nothing has been documented. Magnesium and potassium levels of within normal limits -will keep her off sotalol for now (6) MARC (acute kidney injury): Code(s): N17.9 - Acute kidney failure, unspecified Status: Acute Assessment and Plan: Baseline creatinine 1.8-2.0 -currently creatinine is 2.4 this morning -could be some insult secondary to cardiac arrest. -will continue to monitor closely, hold diuretics for now Additional Plan Family has been updated Code status: Full code Critical care time spent: 32 minutes Discussed with cardiology and nephrology Due to a high probability of clinically significant, life threatening deterioration, the patient required my highest level of preparedness to intervene emergently and I personally spent this critical care time directly and personally managing the patient. This critical care time included obtaining a history; examining the patient; pulse oximetry; ordering and review of studies; arranging urgent treatment with development of a management plan; evaluation of patient's response to treatment; frequent reassessment; and discussions with other providers. It was exclusive of separately billable procedures and treating other patients and teaching time. Please see Assessment and Plan section and the rest of the note for further information on patient assessment and treatment Subjective Date/time seen: 04/01/20 12:33 Interval history: Reason for
--- NOTE | 2020-04-01 13:51 | PM.PNCARD ---
Progress Note: A&P Additional Plan 69-year-old woman with: Paroxysmal atrial fibrillation which I am certain is the result of obesity hypoventilation sleep apnea which is untreated because of her noncompliance with CPAP therapy as an outpatient. We are going to continue to try to maintain rhythm in this lady and as such I am going to transition her from IV diltiazem to I intravenous amiodarone. Systemic anticoagulation will be continued with Xarelto. Hopefully she will again restore sinus rhythm and become asymptomatic. Eric Hall MD [facility] Subjective Date/time seen: Date of service: 04/01/20 13:51 Interval history: Follow-up visit in this 69-year-old woman with: Unexpected and [id number] asystolic arrest also with evidence of pulseless electrical activity during resuscitation effort. Reason for this is not explained as mentioned in consult note yesterday. One must consider the possibility of proarrhythmia due to sotalol which was just started during last admission last week. Obviously agent has been stopped and she is maintaining sinus rhythm. 04/01/2020: Patient now extubated seated in the chair eating offers no complaints. Reverted back to atrial fibrillation last evening not unexpectedly as sotalol has been discontinued. I am going to try to restore rhythm again so I will stop intravenous diltiazem and start intravenous amiodarone at this point. Exam Narrative: Exam Narrative: Morbidly obese female in the ICU, intubated, comfortable. Opens eyes w/ verbal stimulation. Const: General: comfortable, no acute distress and confusion Orientation/consciousness: confusion Other: Morbidly obese black female who appears to be remarkably comfortable being intubated and is alert and follows commands. HENMT: General nose exam: no epistaxis Mouth: Yes moist mucous membranes Eyes: Sclera: sclerae normal Pupils: Equal, round and reactive pupils present Neck: Neck: supple Thyroid: thyroid normal Carotids: no bruits Lymphatic: lymphadenopathy not noted Other: Unable to assess JVD given her body habitus Resp: Effort & Inspection: normal respiratory effort Auscultation: clear to auscultation bilaterally and diminished lung sounds Cardio: Rate: regular rate Rhythm: regular rhythm Heart sounds: no murmurs Other: Unable to palpate femoral pulses, but pt has a large panniculus and exam challenging. decreased but present DP pulses. GI: Inspection: non-distended Auscultation: normal bowel sounds Urinary Catheter: Urinary Catheter: patent and draining and urine clear Neuro: General: confusion Cranial nerves: Yes Equal, round and reactive pupils present Cognition (Neuro): abnormal cognition (sedated) Extrem: General: normal to inspection and edema (Moderate LE edema) Psych: Mental Status: mental status grossly abnormal Objective Data Vital Signs Vital Signs: Vital Signs - 24 hr 03/31/20 14:00 03/31/20 14:27 03/31/20 15:58 Temperature 37.4 C Pulse Rate 73 73 Respiratory Rate 20 Blood Pressure 144/57 H Pulse Oximetry 96 97 97 03/31/20 16:00 03/31/20 18:00 03/31/20 20:00 Temperature 37.4 C 37.5 C 37.2 C Pulse Rate 75 74 120 H Respiratory Rate 16 16 26 H Blood Pressure 158/62 H 143/82 H 131/74 Pulse Oximetry 97 98 96 03/31/20 21:22 03/31/20 21:35 03/31/20 22:00 Temperature Pulse Rate 125 H 125 H 127 H Respiratory Rate 20 Blood Pressure 154/73 H Pulse Oximetry 97 96 03/31/20 22:02 03/31/20 22:35 04/01/20 00:00 Temperature 37.3 C Pulse Rate 135 H 129 H 133 H Respiratory Rate 23 H Blood Pressure 138/68 139/79 133/75 Pulse Oximetry 98 04/01/20 02:00 04/01/20 04:00 04/01/20 06:00 Temperature 37.1 C Pulse Rate 118 H 116 H 117 H Respiratory Rate 24 H 20 22 H Blood Pressure 150/83 H 136/95 H 137/74 Pulse Oximetry 100 96 96 04/01/20 06:49 04/01/20 08:00 Temperature 36.6 C Pulse Rate 111 H 114 H Respiratory Rate 26 H Blood Pressure 145/74 H 134/84 Pulse Oxim
[2020-04-01] MEDS: AMIODARONE 360 MG/D5W 200 ML 360 MG/200 ML BAG 33.33 MG IV CONT (14:50)
[2020-04-01] MEDS: AMIODARONE 150 MG/D5W 100 ML 150 MG/100 ML BAG 600 MG IV CONT (14:50)
[2020-04-01] MEDS: RIVAROXABAN 15 MG TABLET PO (18:21)
[2020-04-01 18:40] LABS: Glucose Point of Care 241 (65-105)
[2020-04-01] MEDS: AMIODARONE 360 MG/D5W 200 ML 360 MG/200 ML BAG 16.67 MG IV CONT (19:53)
[2020-04-01 23:17] LABS: Glucose Point of Care 217 (65-105)
[2020-04-02] VITALS (22 sets, daily range): BP systolic 103–151; BP diastolic 63–94; PULSE 108–137; RESP 20–24; TEMP 36.1–37.4; O2SAT 90–99
[2020-04-02 04:39] LABS: Hemoglobin 10.2 g/dL (12.0-15.0); Mean Corpuscular HGB Conc 31.9 g/dl (32-36); Mean Corpuscular Hemoglobin 25.4 pg (26-34); Mean Corpuscular Volume 79.8 fl (80-100); Mean Platelet Volume 10.3 fl (7.4-10.4); Platelet Count Result 143 k/mm3 (150-375); Red Blood Count 4.01 M/mm3 (4.2-5.4); Red Cell Distribution Width 14.4 % (11.5-14.5); White Blood Count 10.4 K/mm3 (4.5-10.0)
[2020-04-02] MEDS: AMIODARONE 360 MG/D5W 200 ML 360 MG/200 ML BAG 16.67 MG IV CONT ×2 (04:56→16:58)
[2020-04-02] MEDS: CENTRAL LINE FLUSH 10 ML IV PUSH ×4 (04:57→21:01)
[2020-04-02] MEDS: TIMOLOL MALEATE 0.5% OP SOLN 5 ML BOTTLE 1 DROP EACH EYE ×2 (08:04→21:01)
[2020-04-02] MEDS: BRIMONIDINE TARTRATE 0.2% OP SOLN 5 ML BTL 1 DROP EACH EYE ×2 (08:05→21:01)
[2020-04-02 08:11] LABS: Glucose Point of Care 235 (65-105)
[2020-04-02] MEDS: INSULIN ASPART (*BKC) 100 UNITS/ML SUB-Q ×3 (08:14→17:53)
[2020-04-02 08:15] LABS: Alanine Aminotransferase 32 U/L (4-35); Albumin Level 3.1 g/dL (3.5-5.1); Alkaline Phosphatase 89 U/L (38-126); Anion Gap 7 mmol/L (8-16); Aspartate Amino Transferase 23 U/L (14-36); Bilirubin,Total 0.8 mg/dL (0.2-1.3); Blood Urea Nitrogen 62 mg/dL (7-17); Calcium 9.8 mg/dL (8.4-10.2); Carbon Dioxide 29 mmol/L (22-30); Chloride 111 mmol/L (98-107); Estimated CRCL calculation 33 ml/min; Estimated Glomerular Filt Rate 28; Glucose 235 mg/dL (65-105); Magnesium 2.2 mg/dL (1.6-2.3); Phosphorus 4.1 mg/dL (2.5-4.5); Potassium 3.9 mmol/L (3.4-5.0); Sodium 147 mmol/L (137-145)
[2020-04-02] MEDS: METOPROLOL TARTRATE 50 MG TAB PO ×2 (08:35→21:00)
[2020-04-02] MEDS: FUROSEMIDE 40 MG TABLET PO (08:35)
[2020-04-02] MEDS: SIMVASTATIN 20 MG TABLET PO (08:35)
--- NOTE | 2020-04-02 08:45 | PM.PNNEP ---
Progress Note: A&P Assessment and Plan (1) MARC (acute kidney injury): Code(s): N17.9 - Acute kidney failure, unspecified Status: Acute Assessment and Plan: improving due to diuretic therapy and recent cardiac arrest renal ultrasound without acute issues but does have nephrotic range proteinuria follow trend of repeat labs and UOP (2) CKD (chronic kidney disease): Qualifiers: Chronic kidney disease stage: unspecified stage Qualified Code(s): N18.9 - Chronic kidney disease, unspecified Code(s): N18.9 - Chronic kidney disease, unspecified Status: Chronic Assessment and Plan: baseline creatinine runs ~ 1.8 - 2.0mg/dl likely due to hypertension and diabetes (3) Cardiac arrest: Code(s): I46.9 - Cardiac arrest, cause unspecified Status: Acute Assessment and Plan: Cardiology following due to sotalol(?) (4) Acute respiratory failure: Code(s): J96.00 - Acute respiratory failure, unspecified whether with hypoxia or hypercapnia Status: Acute Assessment and Plan: due to cardiac arrest off ventilator support follow respiratory status (5) Essential hypertension: Code(s): I10 - Essential (primary) hypertension Status: Chronic Assessment and Plan: reasonable hemodynamics at this time follow trend (6) Diabetes mellitus: Qualifiers: Chronic kidney disease stage: stage 3 (moderate) Chronic kidney disease stage 3 subtype: unspecified whether 3a or 3b Diabetes mellitus complication detail: with chronic kidney disease Diabetes mellitus complication status: with kidney complications Diabetes mellitus detention insulin use: with detention use Diabetes mellitus type: type 2 Qualified Code(s): E11.22 - Type 2 diabetes mellitus with diabetic chronic kidney disease; N18.30 - Chronic kidney disease, stage 3 unspecified; Z79.4 - detention (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 Subjective Date/time seen: 04/02/20 08:45 Continues to make slow and steady improvement; respiratory status and hemodynamics remain stable in the last 24 hours; mild confusion from orientation perspective but otherwise in no apparent distress. Exam Narrative: Exam Narrative: General: WD/WN AA female in NAD Heart: normal S1 and S2; no rub Lungs: clear to auscultation Abdomen: soft, nontender, nondistended, positive bowel sounds Extremities: no cyanosis or clubbing; no edema Skin: no rash or nodules Objective Data Vital Signs Vital Signs: Vital Signs Temp Pulse Resp BP Pulse Ox 04/02/20 08:35 127 H 04/02/20 08:00 37.1 C 137 H 20 147/84 H 99 04/02/20 06:00 36.9 C 112 H 24 H 137/78 98 04/02/20 04:56 115 H 128/63 04/02/20 04:00 36.9 C 114 H 24 H 128/63 98 04/02/20 02:00 37.3 C 112 H 24 H 129/80 98 04/02/20 00:00 37.3 C 108 H 22 H 127/65 98 04/01/20 22:00 37.2 C 109 H 22 H 128/73 97 04/01/20 20:00 37.2 C 111 H 24 H 145/65 H 96 04/01/20 19:53 112 H 153/65 H 04/01/20 18:00 37.1 C 108 H 23 H 128/78 95 Intake/Output Intake/Output: Intake & Output 03/30/20 03/31/20 04/01/20 04/02/20 23:59 23:59 23:59 23:59 Intake Total 8 22 460 520 Output Total 950 1450 1650 280 [facility]940 -0265 -1190 240 Meds/Results Medications: Active Medications Generic Name Dose Route Start Last Admin Trade Name Freq PRN Reason Stop Dose Admin Benzocaine 1 lozenge 04/02/20 12:42 04/02/20 13:03 Benzocaine/Menthol (*Bkc) 18 Ea Lozenge PO 1 lozenge PRN PRN Administration Sore Throat Brimonidine Tartrate 1 drop 03/29/20 23:45 04/02/20 08:05 Brimonidine Tartrate 0.2% Op Soln 5 Ml Btl EACH EYE 1 drop Q12HR JANKI Administration Dextrose 12.5 gm 04/02/20 06:15 Dextrose 50% 25 Gm/5
--- NOTE | 2020-04-02 12:20 | WPDINTPN ---
Progress Note: A&P Assessment and Plan (1) Cardiac arrest: Code(s): I46.9 - Cardiac arrest, cause unspecified Status: Acute Assessment and Plan: Patient had a PEA arrest as soon as she released home after syncopal episode and bradycardia. Patient has been on sotalol this was recently started, since it is approved rhythmic this could be the likely cause of her cardiac arrest.. PE is in the differential but patient has been on Xarelto has been taking it long-term there is no evidence of ventricular arrhythmias on the EKG, there is some prolonged QT seen on EKG this morning but no arrhythmias. Acute coronary syndrome by EKG. Troponin slightly elevated but plateaued likely related to cardiac arrest. -patient has been hemodynamically stable at this time -no pressor requirements -CT scan of the chest did not show any aortic aneurysm -echocardiogram 03/31/2020 showed > 70%, grade 1 diastolic dysfunction, [id number] tricuspid regurg, severe pulmonary hypertension with RVSP of 68. No wall motion abnormalities was seen -appreciate cardiology following the patient (2) Atrial fibrillation with rapid ventricular response: Code(s): I48.91 - Unspecified atrial fibrillation Status: Acute Assessment and Plan: Patient with history of atrial fibrillation, has been in sinus rhythm, rate control. Will hold sotalol for now -continue Xarelto -patient was started on amiodarone infusion per Cardiology on 04/01/2020 -will discuss with cardiology regarding p.o. amiodarone (3) Acute respiratory failure: Code(s): J96.00 - Acute respiratory failure, unspecified whether with hypoxia or hypercapnia Status: Acute Assessment and Plan: Acute respiratory failure likely related to cardiac arrest, patient has been intubated on mechanical ventilation. - Extubated successfully on 03/31/2020 -currently on 2 L nasal cannula -up in chair -PT/OT to follow the patient -speech has evaluated the patient and she passed her swallow test with some restrictions (4) Diastolic congestive heart failure: Code(s): I50.30 - Unspecified diastolic (congestive) heart failure Status: Acute Assessment and Plan: Patient with diastolic heart failure, chest x-ray shows mild pulmonary edema -holding of diuretics due to CKD (5) QT prolongation: Code(s): R94.31 - Abnormal electrocardiogram [ECG] [EKG] Status: Acute Assessment and Plan: QT prolongation as seen on EKG this morning, no arrhythmias noted, discussed with cardiology discussed with cardiology this could have been [place] but nothing has been documented. Magnesium and potassium levels of within normal limits -will keep her off sotalol for now (6) MARC (acute kidney injury): Code(s): N17.9 - Acute kidney failure, unspecified Status: Acute Assessment and Plan: Baseline creatinine 1.8-2.0 -is 2.1 this morning -could be some insult secondary to cardiac arrest. -will continue to monitor closely, hold diuretics for now Additional Plan Family has been updated Code status: Full code Critical care time spent: 32 minutes Discussed with cardiology and nephrology Due to a high probability of clinically significant, life threatening deterioration, the patient required my highest level of preparedness to intervene emergently and I personally spent this critical care time directly and personally managing the patient. This critical care time included obtaining a history; examining the patient; pulse oximetry; ordering and review of studies; arranging urgent treatment with development of a management plan; evaluation of patient's response to treatment; frequent reassessment; and discussions with other providers. It was exclusive of separately billable procedures and treating other patients and teaching time. Please see Assessment and Plan section and the rest of the note for further information on patient assessment and treatment
[2020-04-02 12:34] LABS: Glucose Point of Care 279 (65-105)
[2020-04-02] MEDS: BENZOCAINE/MENTHOL (*BKC) 18 EA LOZENGE 1 LOZENGE PO (13:03)
--- NOTE | 2020-04-02 14:11 | PM.PNCARD ---
Progress Note: A&P Assessment and Plan (1) Cardiac arrest: Code(s): I46.9 - Cardiac arrest, cause unspecified Status: Acute Assessment and Plan: Patient suffered a cardiac arrest, apparently was asystolic then had a PEA arrest with brief and successful resuscitation. Etiology is uncertain. PE is unlikely if the patient has been taking her Xarelto. No evidence of ventricular arrhythmias. No evidence of an acute ischemic event/ACS by EKG; she does have a mildly elevated troponin but that would be expected after an arrest. No evidence of significant bradycardia on last admission or this admission. Her neurologic status looks good so far. She is hemodynamically stable, not requiring pressors. She does have a questionably wide mediastinum which brings up the possibility of an aortic dissection. Has not had any CP. (2) Afib: Code(s): I48.91 - Unspecified atrial fibrillation Status: Acute Assessment and Plan: History of PAF, converted to sinus rhythm on last admission while on sotalol but has reverted back to atrial fibrillation with rapid ventricular response. Has been chronically anticoagulated with Xarelto. Will give a dose of IV metoprolol 5 mg x 1. She may need cardioversion. (3) Diastolic congestive heart failure: Code(s): I50.30 - Unspecified diastolic (congestive) heart failure Status: Acute Assessment and Plan: Acute on chronic diastolic CHF noted overnight. However, holding off on diuretics because of acute kidney injury. (4) QT prolongation: Code(s): R94.31 - Abnormal electrocardiogram [ECG] [EKG] Status: Acute Assessment and Plan: QT prolongation has been noted since discharge, but no significant arrhythmias seen. On amiodarone drip. Will check an EKG now to evaluate her QTC. (5) CKD (chronic kidney disease): Qualifiers: Chronic kidney disease stage: unspecified stage Qualified Code(s): N18.9 - Chronic kidney disease, unspecified Code(s): N18.9 - Chronic kidney disease, unspecified Status: Chronic Assessment and Plan: MARC/CKD, the some slight improvement of creatinine overnight, followed by Dr. Florian (6) H/O: HTN (hypertension): Code(s): Z86.79 - Personal history of other diseases of the circulatory system Status: Acute Assessment and Plan: Tends to run a bit high, will continue to follow. Subjective Date/time seen: 04/02/20 14:11 Interval history: Follow-up visit in this 69-year-old woman with: Unexpected and [id number] asystolic arrest also with evidence of pulseless electrical activity during resuscitation effort. Reason for this is not explained as mentioned in consult note yesterday. One must consider the possibility of proarrhythmia due to sotalol which was just started during last admission last week. Obviously agent has been stopped and she is maintaining sinus rhythm. 04/02/2020: No chest pain or shortness of breath. Reverted back to atrial fibrillation last evening not unexpectedly as sotalol has been discontinued. I am going to try to restore rhythm again so I will stop intravenous diltiazem and start intravenous amiodarone at this point. Review of Systems Constitutional: Constitutional: Reports no additional constitutional complaints Eyes: Eyes: Reports no additional eye complaints ENT: Reports system reviewed and no additional complaints, except as documented Cardiovascular: Cardiovascular: Reports no additional cardiovascular complaints, Reports pedal edema and Reports leg edema Respiratory: Respirat
--- NOTE | 2020-04-02 14:16 | ECG_ITS ---
Measurements Intervals [place] Rate: 127 P: PA: 0 QRS: 31 QRSD: 77 T: 150 QT: 335 QTc: 489 Interpretive Statements ATRIAL FIBRILLATION WITH RAPID VENTRICULAR RESPONSE INCOMPLETE RIGHT BUNDLE BRANCH BLOCK NONSPECIFIC ST & T-WAVE ABNORMALITY- DIFFUSE LEADS BASELINE ARTIFACT- I, III, AVR, AVL ABNORMAL ECG Electronically Signed On 04-02-2020 15:07:53 JACKET PREPARER by Garrett Bucio D.O.
[2020-04-02] MEDS: METOPROLOL TARTRATE INJ 5 MG/5 ML VIAL IV PUSH (14:58)
[2020-04-02] MEDS: RIVAROXABAN 15 MG TABLET PO (17:49)
[2020-04-02 18:12] LABS: Glucose Point of Care 287 (65-105)
--- NOTE | 2020-04-02 18:32 | PC.NURSE ---
This patient, Shaniqua Oakley, was transferred to [[facility]] on 04/02/20 at 1820. Personal belongings sent with patient. Report given to [Lynn]. Appropriate documentation sent with patient.
[2020-04-03] VITALS (27 sets, daily range): BP systolic 126–153; BP diastolic 52–90; PULSE 61–138; RESP 18–98; TEMP 35.8–36.3; O2SAT 22–100
[2020-04-03] MEDS: CENTRAL LINE FLUSH 10 ML IV PUSH ×4 (04:05→20:59)
[2020-04-03] MEDS: AMIODARONE 360 MG/D5W 200 ML 360 MG/200 ML BAG 16.67 MG IV CONT ×2 (04:05→15:04)
[2020-04-03 04:22] LABS: Hematocrit 31.8 % (37.0-47.0); Hemoglobin 10.1 g/dL (12.0-15.0); Mean Corpuscular HGB Conc 31.8 g/dl (32-36); Mean Corpuscular Hemoglobin 25.3 pg (26-34); Mean Corpuscular Volume 79.5 fl (80-100); Mean Platelet Volume 10.6 fl (7.4-10.4); Platelet Count Result 142 k/mm3 (150-375); Red Cell Distribution Width 14.4 % (11.5-14.5); White Blood Count 7.6 K/mm3 (4.5-10.0)
[2020-04-03 04:40] LABS: Alanine Aminotransferase 27 U/L (4-35); Alkaline Phosphatase 86 U/L (38-126); Anion Gap 3 mmol/L (8-16); Aspartate Amino Transferase 21 U/L (14-36); Bilirubin,Total 0.8 mg/dL (0.2-1.3); Blood Urea Nitrogen 62 mg/dL (7-17); Calcium 10.1 mg/dL (8.4-10.2); Carbon Dioxide 31 mmol/L (22-30); Chloride 110 mmol/L (98-107); Estimated CRCL calculation 30 ml/min; Estimated Glomerular Filt Rate 26; Glucose 298 mg/dL (65-105); Magnesium 2.1 mg/dL (1.6-2.3); Phosphorus 4.1 mg/dL (2.5-4.5); Sodium 144 mmol/L (137-145)
[2020-04-03] MEDS: FUROSEMIDE 40 MG TABLET PO (08:38)
[2020-04-03] MEDS: METOPROLOL TARTRATE 50 MG TAB PO ×2 (08:38→21:00)
[2020-04-03] MEDS: SIMVASTATIN 20 MG TABLET PO (08:38)
[2020-04-03] MEDS: BRIMONIDINE TARTRATE 0.2% OP SOLN 5 ML BTL 1 DROP EACH EYE ×2 (08:38→21:00)
[2020-04-03] MEDS: TIMOLOL MALEATE 0.5% OP SOLN 5 ML BOTTLE 1 DROP EACH EYE ×2 (08:42→21:00)
[2020-04-03] MEDS: INSULIN ASPART (*BKC) 100 UNITS/ML SUB-Q ×3 (08:45→17:36)
[2020-04-03 08:52] LABS: Glucose Point of Care 291 (65-105)
--- NOTE | 2020-04-03 09:51 | ECG_ITS ---
Measurements Intervals [place] Rate: 66 P: 29 CT: 156 QRS: 60 QRSD: 101 T: 70 QT: 433 QTc: 456 Interpretive Statements SINUS RHYTHM NONSPECIFIC T-WAVE ABNORMALITY- HIGH LATERAL LEADS BORDERLINE ECG Electronically Signed On 04-03-2020 11:44:00 PRESALES CONSULTANT by Garrett Bucio D.O.
--- NOTE | 2020-04-03 09:54 | PM.PNCARD ---
Progress Note: A&P Assessment and Plan (1) Cardiac arrest: Code(s): I46.9 - Cardiac arrest, cause unspecified Status: Acute Assessment and Plan: Patient suffered a cardiac arrest, apparently was asystolic then had a PEA arrest with brief and successful resuscitation. Etiology is uncertain. PE is unlikely if the patient has been taking her Xarelto. No evidence of ventricular arrhythmias. No evidence of an acute ischemic event/ACS by EKG; she does have a mildly elevated troponin but that would be expected after an arrest. No evidence of significant bradycardia on last admission or this admission. Her neurologic status looks good so far. She is hemodynamically stable, not requiring pressors. She does have a questionably wide mediastinum which brings up the possibility of an aortic dissection. Has not had any CP. (2) Afib: Code(s): I48.91 - Unspecified atrial fibrillation Status: Acute Assessment and Plan: History of PAF, converted to sinus rhythm on last admission while on sotalol but has reverted back to atrial fibrillation with rapid ventricular response. Has been chronically anticoagulated with Xarelto. She is in sinus rhythm in will repeat an EKG now to evaluate QTC while in sinus. Continue IV amiodarone and if she remains in sinus rhythm tomorrow, transition to oral (3) Diastolic congestive heart failure: Code(s): I50.30 - Unspecified diastolic (congestive) heart failure Status: Acute Assessment and Plan: Acute on chronic diastolic CHF noted overnight. However, holding off on diuretics because of acute kidney injury. (4) QT prolongation: Code(s): R94.31 - Abnormal electrocardiogram [ECG] [EKG] Status: Acute Assessment and Plan: QT prolongation has been noted since discharge, but no significant arrhythmias seen. On amiodarone drip. (5) CKD (chronic kidney disease): Qualifiers: Chronic kidney disease stage: unspecified stage Qualified Code(s): N18.9 - Chronic kidney disease, unspecified Code(s): N18.9 - Chronic kidney disease, unspecified Status: Chronic Assessment and Plan: MARC/CKD, the some slight improvement of creatinine overnight, followed by Dr. Florian (6) H/O: HTN (hypertension): Code(s): Z86.79 - Personal history of other diseases of the circulatory system Status: Acute Assessment and Plan: Tends to run a bit high, will continue to follow. Subjective Date/time seen: 04/03/20 09:54 Interval history: Follow-up visit in this 69-year-old woman with: Unexpected and [id number] asystolic arrest also with evidence of pulseless electrical activity during resuscitation effort. Reason for this is not explained as mentioned in consult note yesterday. One must consider the possibility of proarrhythmia due to sotalol which was just started during last admission last week. Obviously agent has been stopped and she is maintaining sinus rhythm. 04/03/2020: No chest pain or shortness of breath. In and out of atrial fibrillation. Currently back in sinus rhythm. Review of Systems Constitutional: Constitutional: Reports no additional constitutional complaints Eyes: Eyes: Reports no additional eye complaints ENT: Reports system reviewed and no additional complaints, except as documented Cardiovascular: Cardiovascular: Reports no additional cardiovascular complaints, Reports pedal edema and Reports leg edema Respiratory: Respiratory: Reports no additional respiratory complaints and Denies hemoptysis Gastrointestinal: Gastrointestinal:
[2020-04-03 12:36] LABS: Glucose Point of Care 290 (65-105)
--- NOTE | 2020-04-03 14:57 | PM.PNNEP ---
Progress Note: A&P Assessment and Plan (1) MARC (acute kidney injury): Code(s): N17.9 - Acute kidney failure, unspecified Status: Acute Assessment and Plan: improving due to diuretic therapy and recent cardiac arrest renal ultrasound without acute issues but does have nephrotic range proteinuria follow trend of repeat labs and UOP (2) CKD (chronic kidney disease): Qualifiers: Chronic kidney disease stage: unspecified stage Qualified Code(s): N18.9 - Chronic kidney disease, unspecified Code(s): N18.9 - Chronic kidney disease, unspecified Status: Chronic Assessment and Plan: baseline creatinine runs ~ 1.8 - 2.0mg/dl likely due to hypertension and diabetes (3) Cardiac arrest: Code(s): I46.9 - Cardiac arrest, cause unspecified Status: Acute Assessment and Plan: Cardiology following due to sotalol(?) (4) Acute respiratory failure: Code(s): J96.00 - Acute respiratory failure, unspecified whether with hypoxia or hypercapnia Status: Acute Assessment and Plan: due to cardiac arrest off ventilator support follow respiratory status (5) Essential hypertension: Code(s): I10 - Essential (primary) hypertension Status: Chronic Assessment and Plan: reasonable hemodynamics at this time follow trend (6) Diabetes mellitus: Qualifiers: Chronic kidney disease stage: stage 3 (moderate) Chronic kidney disease stage 3 subtype: unspecified whether 3a or 3b Diabetes mellitus complication detail: with chronic kidney disease Diabetes mellitus complication status: with kidney complications Diabetes mellitus usp insulin use: with usp use Diabetes mellitus type: type 2 Qualified Code(s): E11.22 - Type 2 diabetes mellitus with diabetic chronic kidney disease; N18.30 - Chronic kidney disease, stage 3 unspecified; Z79.4 - long-term (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 Subjective Date/time seen: 04/03/20 14:57 Seems to be feeling reasonably well; no acute events/issues overnight or earlier this AM; no apparent distress voiced at the time of my visit. Exam Narrative: Exam Narrative: General: WD/WN AA female in NAD Heart: normal S1 and S2; no rub Lungs: clear to auscultation Abdomen: soft, nontender, nondistended, positive bowel sounds Extremities: no cyanosis or clubbing; no edema Skin: no rash or nodules Objective Data Vital Signs Vital Signs: Vital Signs Temp Pulse Resp BP Pulse Ox 04/03/20 14:00 113 H 04/03/20 13:08 35.8 C L 65 98 H 127/52 L 22 L 04/03/20 12:00 65 04/03/20 11:05 65 97 04/03/20 10:47 64 99 04/03/20 10:00 67 04/03/20 09:42 137 H 22 H 97 04/03/20 08:38 112 H 04/03/20 08:25 36.1 C L 123 H 24 H 153/90 H 100 04/03/20 08:00 115 H 100 04/03/20 06:00 120 H 04/03/20 04:59 117 H 20 98 04/03/20 04:05 122 H 04/03/20 04:00 36.1 C L 104 H 18 140/78 96 04/03/20 03:55 122 H 23 H 100 04/03/20 02:00 125 H 04/03/20 01:44 125 H 23 H 95 04/02/20 23:45 36.1 C L 125 H 20 151/85 H 91 04/02/20 23:19 128 H 20 91 04/02/20 22:18 113 H 91 04/02/20 22:11 117 H 96 04/02/20 22:00 118 H 04/02/20 21:00 124 H 04/02/20 20:00 131 H 20 91 04/02/20 19:23 36.1 C L 124 H 20 146/94 H 91 04/02/20 18:00 126 H Intake/Output Intake/Output: Intake & Output 03/31/20 04/01/20 04/02/20 04/03/20 23:59 23:59 23:59 23:59 Intake Total 22 460 1280 1000 Output Total 1450 1650 930 250 Balance -1428 -1190 350 750 Meds/Results Medications: Active Medications Generic Name Dose Route Start Last Admin Trade Name Freq PRN Reason Stop Dose Admin Benzocaine 1 lozenge 04/02/20 12:
--- NOTE | 2020-04-03 15:52 | PM.IMPN ---
Progress Note: A&P Assessment and Plan (1) Cardiac arrest: Code(s): I46.9 - Cardiac arrest, cause unspecified Status: Acute Assessment and Plan: pt has history of sleep apnea and obesity -hypoventilation syndrome and CHF and Af. Pt was in ICU was intubated on ventilator. Pt extubated doing well Hr good pt is on BIPAP PEA Cardiac arrest- secondary to syncope and SB EKG showed QT prolongation ACS unlikely, PE unlikely CT chest and head ordered on admission CT chest shows pulmonary edema (2) Syncope: Code(s): R55 - Syncope and collapse Status: Resolved (3) Acute respiratory failure: Code(s): J96.00 - Acute respiratory failure, unspecified whether with hypoxia or hypercapnia Status: Acute Assessment and Plan: Sp intubation pt has history of sleep apnea and obesity -hypoventilation syndrome and CHF (4) Chronic kidney disease, stage 4 (severe): Code(s): N18.4 - Chronic kidney disease, stage 4 (severe) Status: Inactive Assessment and Plan: Continue to monitor kidney function (5) Atrial fibrillation: Code(s): I48.91 - Unspecified atrial fibrillation Status: Inactive Assessment and Plan: AF WITH RVR, pt is on amiodarone drip . (6) Diastolic congestive heart failure: Code(s): I50.30 - Unspecified diastolic (congestive) heart failure Status: Acute Assessment and Plan: Pt seen by cardiology pt is on oral lasix. Ef is 70% diastolic CHF. (7) Essential hypertension: Code(s): I10 - Essential (primary) hypertension Status: Chronic Assessment and Plan: Continue to watch pt is on metoprolol (8) Obstructive sleep apnea: Code(s): G47.33 - Obstructive sleep apnea (adult) (pediatric) Status: Inactive Assessment and Plan: Pt is on cpap (9) Insulin dependent type 2 diabetes mellitus: Code(s): E11.9 - Type 2 diabetes mellitus without complications; Z79.4 - intermodal truck driver (current) use of insulin Status: Inactive Assessment and Plan: accuchecks, SSI , DM diet (10) Current use of terminal supervisor anticoagulation: Code(s): Z79.01 - MCFP (current) use of anticoagulants Status: Inactive Assessment and Plan: pt is on xarelto for AF (11) Morbid obesity: Code(s): E66.01 - Morbid (severe) obesity due to excess calories Status: Inactive Assessment and Plan: Advised to loose weight Pt may benefit from rehab once medical stable. Subjective Date/time seen: 04/03/20 15:52 Interval history: 69-year-old morbidly obese female with atrial fibrillation, chronic kidney disease, hypertension, and sleep apnea who presented to the emergency department earlier today via EMS from home in cardiac arrest. was initially in ICU is out of ICU now. Pt is on a amiodarone drip for AF with RVR Pt has history of AF, sleep apnea, DM, CKD, morbid obesity. Seen by cardiology and nephrology Review of Systems Review of Systems: All systems reviewed & are unremarkable except as noted in HPI and below Exam Narrative: Exam Narrative: General: Pleasant morbidly obese HEENT: Normocephalic Neck: Supple. Respiratory: Lungs are clear Cardiovascular: Regular rate and rhythm with S1-S2. Gastrointestinal: Abdomen is soft, morbidly obese, and nondistended with positive bowel sounds. Skin: Warm and dry. Lower extremities are dry with chronic skin changes including hyperpigmentation and thickening of the skin due to chronic stasis. Extremities: No cyanosis or clubbing. No edema of extremities Psychiatric: low mood Objective Data Vital Signs Vital Signs: Vital Signs - 24 hr 04/02/20 16:00 04/02/20 18:00 04/02/20 19:23 Temperature 37.4 C 36.1 C L Pulse Rate 129 H 126 H 124 H Respiratory Rate 23 H 20 Blood Pressure 103/75 146/94 H Pulse Oximetry 97 91 04/02/20 20:00 04/02/20 21:00 04/02/20 22:00 Temperature Pulse Rate 131
[2020-04-03 17:22] LABS: Glucose Point of Care 278 (65-105)
[2020-04-03] MEDS: RIVAROXABAN 15 MG TABLET PO (17:37)
[2020-04-03 21:24] LABS: Glucose Point of Care 254 (65-105)
--- NOTE | 2020-04-03 22:31 | ECG_ITS ---
Measurements Intervals [place] Rate: 58 P: 27 AL: 164 QRS: 53 QRSD: 96 T: 50 QT: 439 QTc: 432 Interpretive Statements SINUS BRADYCARDIA INCOMPLETE RIGHT BUNDLE BRANCH BLOCK BORDERLINE ECG Electronically Signed On 04-04-2020 12:16:24 BRICK EXTRUDER OPERATOR by Garrett Bucio D.O.
[2020-04-04] VITALS (23 sets, daily range): BP systolic 117–142; BP diastolic 54–95; PULSE 58–132; RESP 16–22; TEMP 35.6–36.6; O2SAT 93–100; BMI 10.0
[2020-04-04] MEDS: AMIODARONE 360 MG/D5W 200 ML 360 MG/200 ML BAG 16.67 MG IV CONT (03:33)
[2020-04-04 05:44] LABS: Hematocrit 32.5 % (37.0-47.0); Hemoglobin 10.4 g/dL (12.0-15.0); Mean Corpuscular Hemoglobin 25.2 pg (26-34); Mean Corpuscular Volume 78.7 fl (80-100); Mean Platelet Volume 10.8 fl (7.4-10.4); Platelet Count Result 144 k/mm3 (150-375); Red Blood Count 4.13 M/mm3 (4.2-5.4); Red Cell Distribution Width 14.5 % (11.5-14.5); White Blood Count 7.1 K/mm3 (4.5-10.0)
[2020-04-04] MEDS: CENTRAL LINE FLUSH 10 ML IV PUSH ×4 (05:55→19:46)
[2020-04-04 06:02] LABS: Alanine Aminotransferase 26 U/L (4-35); Albumin Level 3.2 g/dL (3.5-5.1); Alkaline Phosphatase 84 U/L (38-126); Anion Gap 4 mmol/L (8-16); Aspartate Amino Transferase 23 U/L (14-36); Bilirubin,Total 0.7 mg/dL (0.2-1.3); Blood Urea Nitrogen 72 mg/dL (7-17); Calcium 9.7 mg/dL (8.4-10.2); Carbon Dioxide 29 mmol/L (22-30); Chloride 108 mmol/L (98-107); Estimated CRCL calculation 25 ml/min; Estimated Glomerular Filt Rate 20; Glucose 261 mg/dL (65-105); Magnesium 2.2 mg/dL (1.6-2.3); Phosphorus 4.5 mg/dL (2.5-4.5); Potassium 4.1 mmol/L (3.4-5.0); Sodium 141 mmol/L (137-145)
[2020-04-04 07:41] LABS: Glucose Point of Care 247 (65-105)
[2020-04-04] MEDS: METOPROLOL TARTRATE 50 MG TAB PO ×2 (08:00→19:52)
[2020-04-04] MEDS: INSULIN ASPART (*BKC) 100 UNITS/ML SUB-Q ×3 (08:00→16:51)
[2020-04-04] MEDS: FUROSEMIDE 40 MG TABLET PO (08:00)
[2020-04-04] MEDS: SIMVASTATIN 20 MG TABLET PO (08:01)
[2020-04-04] MEDS: TIMOLOL MALEATE 0.5% OP SOLN 5 ML BOTTLE 1 DROP EACH EYE ×2 (08:01→19:52)
[2020-04-04] MEDS: BRIMONIDINE TARTRATE 0.2% OP SOLN 5 ML BTL 1 DROP EACH EYE ×2 (08:01→19:52)
[2020-04-04 11:37] LABS: Glucose Point of Care 251 (65-105)
--- NOTE | 2020-04-04 13:22 | PM.PNCARD ---
Progress Note: A&P Assessment and Plan (1) Cardiac arrest: Code(s): I46.9 - Cardiac arrest, cause unspecified Status: Acute Assessment and Plan: Patient suffered a cardiac arrest, apparently was asystolic then had a PEA arrest with brief and successful resuscitation. Etiology is uncertain. PE is unlikely if the patient has been taking her Xarelto. No evidence of ventricular arrhythmias. No evidence of an acute ischemic event/ACS by EKG; she does have a mildly elevated troponin but that would be expected after an arrest. No evidence of significant bradycardia on last admission or this admission. Her neurologic status looks good so far. She is hemodynamically stable, not requiring pressors. She does have a questionably wide mediastinum which brings up the possibility of an aortic dissection. Has not had any CP. (2) Afib: Code(s): I48.91 - Unspecified atrial fibrillation Status: Acute Assessment and Plan: History of PAF, converted to sinus rhythm on last admission while on sotalol. Has been chronically anticoagulated with Xarelto. DC IV amiodarone. Will start her on oral amiodarone 200 mg p.o. b.i.d.. (3) Diastolic congestive heart failure: Code(s): I50.30 - Unspecified diastolic (congestive) heart failure Status: Acute Assessment and Plan: Continue furosemide (4) QT prolongation: Code(s): R94.31 - Abnormal electrocardiogram [ECG] [EKG] Status: Acute Assessment and Plan: QT prolongation has been noted since discharge, but no significant arrhythmias seen. (5) CKD (chronic kidney disease): Qualifiers: Chronic kidney disease stage: unspecified stage Qualified Code(s): N18.9 - Chronic kidney disease, unspecified Code(s): N18.9 - Chronic kidney disease, unspecified Status: Chronic Assessment and Plan: MARC/CKD, the some slight improvement of creatinine overnight, followed by Dr. Florian (6) H/O: HTN (hypertension): Code(s): Z86.79 - Personal history of other diseases of the circulatory system Status: Acute Assessment and Plan: Tends to run a bit high, will continue to follow. Subjective Date/time seen: 04/04/20 13:22 Interval history: Follow-up visit in this 69-year-old woman with: Unexpected and [id number] asystolic arrest also with evidence of pulseless electrical activity during resuscitation effort. Reason for this is not explained as mentioned in consult note yesterday. One must consider the possibility of proarrhythmia due to sotalol which was just started during last admission last week. Obviously agent has been stopped and she is maintaining sinus rhythm. 04/04/2020: No chest pain or shortness of breath. In and out of atrial fibrillation. Otherwise feels fine Review of Systems Constitutional: Constitutional: Reports no additional constitutional complaints Eyes: Eyes: Denies blurry vision ENT: Reports system reviewed and no additional complaints, except as documented Cardiovascular: Cardiovascular: Reports no additional cardiovascular complaints, Reports pedal edema, Reports leg edema and Denies palpitations Respiratory: Respiratory: Reports no additional respiratory complaints and Denies hemoptysis Gastrointestinal: Gastrointestinal: Denies hematochezia Genitourinary: Genitourinary: Denies hematuria Musculoskeletal: Musculoskeletal: Reports no additional musculoskeletal complaints and Reports arthralgias (H/O chronic ankle pain 2nd to Charcot foot) Integumentary/Breasts: Skin/Breast: Denies rash Neurologic: Re
--- NOTE | 2020-04-04 13:29 | PCDIET ---
Nutrition Follow-Up Complete: Nutrition Diagnosis: Inadequate oral intake related to oral intubation as evidenced by NPO status. Nutrition Goal: Patient to meet estimated nutritional needs. Goal in progress. Recorded intakes only 0-10% on minced and moist, diabetic diet; however, patient reports improving appetite. Discussed importance of improving nutritional status. Patient agreeable to try Glucerna Shake (220kcal, 10g protein) - Recommend sending BID. Last recorded weight is 142.3 kg which is increased from last review. Bowel Motility: No documented BM - recommend adding medication to promote BM, if medically appropriate. Labs Reviewed: Hgb (10.4), Hct (32.5), Glu (251), BUN (72), Cr (2.8), Alb (3.2) Meds Noted: Lasix, Lopressor, Novolog, Zocor Additional Notes: No documented skin breakdown. Will continue to monitor with same goal. Nutrition Monitoring and Evaluation: Follow up every 5 days.
--- NOTE | 2020-04-04 13:52 | PM.PNNEP ---
Progress Note: A&P Assessment and Plan (1) MARC (acute kidney injury): Code(s): N17.9 - Acute kidney failure, unspecified Status: Acute Assessment and Plan: had been improving but up again today -- on/off afib contributing versus diuretics?? initial insult due to diuretic therapy and recent cardiac arrest renal ultrasound without acute issues but does have nephrotic range proteinuria follow trend of repeat labs and UOP (2) CKD (chronic kidney disease): Qualifiers: Chronic kidney disease stage: unspecified stage Qualified Code(s): N18.9 - Chronic kidney disease, unspecified Code(s): N18.9 - Chronic kidney disease, unspecified Status: Chronic Assessment and Plan: baseline creatinine runs ~ 1.8 - 2.0mg/dl likely due to hypertension and diabetes (3) Cardiac arrest: Code(s): I46.9 - Cardiac arrest, cause unspecified Status: Acute Assessment and Plan: Cardiology following due to sotalol(?) (4) Acute respiratory failure: Code(s): J96.00 - Acute respiratory failure, unspecified whether with hypoxia or hypercapnia Status: Acute Assessment and Plan: due to cardiac arrest off ventilator support follow respiratory status (5) Essential hypertension: Code(s): I10 - Essential (primary) hypertension Status: Chronic Assessment and Plan: reasonable hemodynamics at this time follow trend (6) Diabetes mellitus: Qualifiers: Chronic kidney disease stage: stage 3 (moderate) Chronic kidney disease stage 3 subtype: unspecified whether 3a or 3b Diabetes mellitus complication detail: with chronic kidney disease Diabetes mellitus complication status: with kidney complications 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 Subjective Date/time seen: 04/04/20 13:52 She appears to be doing okay at the time of my visit; no acute distress or problems voiced; respiratory and hemodynamic remain stable; no other acute events/issues overnight or earlier today; no other acute complaints to report currently. Exam Narrative: Exam Narrative: General: WD/WN AA female in NAD Heart: normal S1 and S2; no rub Lungs: clear to auscultation Abdomen: soft, nontender, nondistended, positive bowel sounds Extremities: no cyanosis or clubbing; trace edema Skin: warm and dry Objective Data Vital Signs Vital Signs: Vital Signs Temp Pulse Resp BP Pulse Ox 04/04/20 12:33 35.6 C L 126 H 20 125/76 100 04/04/20 12:00 125 H 04/04/20 11:06 99 04/04/20 10:00 63 04/04/20 08:18 35.6 C L 124 H 22 H 137/82 100 04/04/20 08:00 64 100 04/04/20 04:00 36.1 C L 132 H 16 128/83 100 04/04/20 03:33 117 H 04/04/20 01:04 61 16 95 04/04/20 00:00 36.0 C L 59 L 20 117/72 94 04/03/20 22:30 61 94 04/03/20 21:52 132 H 04/03/20 21:00 120 H 04/03/20 20:00 36.1 C L 125 H 20 126/80 99 04/03/20 18:00 131 H Intake/Output Intake/Output: Intake & Output 04/01/20 04/02/20 04/03/20 04/04/20 23:59 23:59 23:59 23:59 Intake Total 460 1280 2000 960 Output Total 1650 930 400 600 Balance -5886 556 8178 360 Meds/Results Medications: Active Medications Generic Name Dose Route Start Last Admin Trade Name Audie PRN Reason Stop Dose Admin Amiodarone HCl 200 mg 04/04/20 17:00 04/04/20 14:34 Amiodarone Hcl 200 Mg Tablet PO 200 mg BID JANKI Administration Benzocaine 1 lozenge 04/02/20 12:42 04/02/20 13:03 Benzocaine/Menthol (*Bkc) 18 Ea
[2020-04-04] MEDS: AMIODARONE HCL 200 MG TABLET PO (14:34)
[2020-04-04] MEDS: RIVAROXABAN 15 MG TABLET PO (16:51)
--- NOTE | 2020-04-04 17:00 | PM.IMPN ---
Progress Note: A&P Assessment and Plan (1) Cardiac arrest: Code(s): I46.9 - Cardiac arrest, cause unspecified Status: Acute Assessment and Plan: pt has history of sleep apnea and obesity -hypoventilation syndrome and CHF and Af. Pt was in ICU was intubated on ventilator. Pt extubated doing well Hr good pt still needing 3 liters of oxygen PEA Cardiac arrest EKG showed QT proloangation ACS unlikley, PE unlikely CT chest and head ordered on admission CT chest shows pulmonary edema (2) Syncope: Code(s): R55 - Syncope and collapse Status: Resolved (3) Acute respiratory failure: Code(s): J96.00 - Acute respiratory failure, unspecified whether with hypoxia or hypercapnia Status: Acute Assessment and Plan: Sp intubation pt has history of sleep apnea and obesity -hypoventilation syndrome and CHF (4) Chronic kidney disease, stage 4 (severe): Code(s): N18.4 - Chronic kidney disease, stage 4 (severe) Status: Inactive Assessment and Plan: Continue to monitor kidney function (5) Atrial fibrillation: Code(s): I48.91 - Unspecified atrial fibrillation Status: Inactive Assessment and Plan: Heart rate better more controlled today pt is on amiodarone drip . (6) Diastolic congestive heart failure: Code(s): I50.30 - Unspecified diastolic (congestive) heart failure Status: Acute Assessment and Plan: Pt seen by cardiology pt is on oral lasix. Ef is 70% diastolic CHF. 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 Subjective Date/time seen: 04/04/20 17:00 Interval history: 69-year-old morbidly obese female with atrial fibrillation, chronic kidney disease, hypertension, and sleep apnea who presented to the emergency department earlier today via EMS from home in cardiac arrest. was initially in ICU is out of ICU now. Pt is on a amiodarone drip for AF with RVR Pt has history of AF, sleep apnea, DM, CKD, morbid obesity. Not looking after her self lives alone. Seen By cardiology. Review of Systems Review of Systems: All systems reviewed & are unremarkable except as noted in HPI and below Exam Narrative: Exam Narrative: General: Pleasant morbidly obese HEENT: Normocephalic Neck: Supple. Respiratory: Lungs are clear Cardiovascular: Regular rate and rhythm with S1-S2. Gastrointestinal: Abdomen is soft, morbidly obese, and nondistended with positive bowel sounds. Skin: Warm and dry. Lower extremities are dry with chronic skin changes including hyperpigmentation and thickening of the skin due to chronic stasis. Extremities: No cyanosis or clubbing. No edema of extremities Psychiatric: Normal mood Objective Data Vital Signs Vital Signs: Vital Signs - 24 hr 04/03/20 17:25 04/03/20 18:00 04/03/20 20:00 Temperature 36.3 C L 36.1 C L Pulse Rate 138 H 131 H 125 H Respiratory Rate 22 H 20 Blood Pressure 130/61 126/80 Pulse Oximetry 99 99 04/03/20 21:00 04/03/20 21:52
[2020-04-04 19:17] LABS: SARS-CoV-2 RNA PCR Negative
[2020-04-04 20:21] LABS: Glucose Point of Care 288 (65-105)
[2020-04-04 20:59] LABS: Glucose Point of Care 248 (65-105)
[2020-04-05] VITALS (23 sets, daily range): BP systolic 135–178; BP diastolic 46–90; PULSE 57–148; RESP 16–22; TEMP 36.1–36.6; O2SAT 92–100
[2020-04-05] MEDS: CENTRAL LINE FLUSH 10 ML IV PUSH ×4 (03:38→21:54)
[2020-04-05 06:04] LABS: Hemoglobin 10.4 g/dL (12.0-15.0); Mean Corpuscular HGB Conc 32.5 g/dl (32-36); Mean Corpuscular Hemoglobin 24.9 pg (26-34); Mean Corpuscular Volume 76.6 fl (80-100); Mean Platelet Volume 10.9 fl (7.4-10.4); Platelet Count Result 146 k/mm3 (150-375); Red Blood Count 4.18 M/mm3 (4.2-5.4); Red Cell Distribution Width 14.1 % (11.5-14.5); White Blood Count 7.9 K/mm3 (4.5-10.0)
[2020-04-05 06:25] LABS: Anion Gap 6 mmol/L (8-16); Blood Urea Nitrogen 76 mg/dL (7-17); Carbon Dioxide 27 mmol/L (22-30); Chloride 107 mmol/L (98-107); Estimated CRCL calculation 21 ml/min; Estimated Glomerular Filt Rate 16; Glucose 215 mg/dL (65-105); Potassium 4.1 mmol/L (3.4-5.0); Sodium 140 mmol/L (137-145)
[2020-04-05] MEDS: BENZOCAINE/MENTHOL (*BKC) 18 EA LOZENGE 1 LOZENGE PO ×2 (09:17→11:33)
[2020-04-05] MEDS: TIMOLOL MALEATE 0.5% OP SOLN 5 ML BOTTLE 1 DROP EACH EYE ×2 (09:18→21:53)
[2020-04-05] MEDS: METOPROLOL TARTRATE 50 MG TAB PO ×2 (09:18→21:53)
[2020-04-05] MEDS: FUROSEMIDE 40 MG TABLET PO (09:18)
[2020-04-05] MEDS: BRIMONIDINE TARTRATE 0.2% OP SOLN 5 ML BTL 1 DROP EACH EYE ×2 (09:18→21:54)
[2020-04-05] MEDS: SIMVASTATIN 20 MG TABLET PO (09:18)
[2020-04-05] MEDS: INSULIN ASPART (*BKC) 100 UNITS/ML SUB-Q ×3 (09:19→17:50)
[2020-04-05 10:40] LABS: Glucose Point of Care 220 (65-105)
[2020-04-05] MEDS: AMIODARONE HCL 200 MG TABLET PO ×2 (11:32→17:49)
--- NOTE | 2020-04-05 12:21 | PM.IMPN ---
Progress Note: A&P Assessment and Plan (1) Cardiac arrest: Code(s): I46.9 - Cardiac arrest, cause unspecified Status: Acute Assessment and Plan: pt has history of sleep apnea and obesity -hypoventilation syndrome and CHF and Af. Pt was in ICU was intubated on ventilator. Pt extubated doing well Hr good pt still needing 3 liters of oxygen PEA Cardiac arrest EKG showed QT proloangation ACS unlikley, PE unlikely CT chest and head ordered on admission CT chest shows pulmonary edema (2) Syncope: Code(s): R55 - Syncope and collapse Status: Resolved (3) Acute respiratory failure: Code(s): J96.00 - Acute respiratory failure, unspecified whether with hypoxia or hypercapnia Status: Acute Assessment and Plan: Sp intubation pt has history of sleep apnea and obesity -hypoventilation syndrome and CHF Order Cxr for vadim (4) Chronic kidney disease, stage 4 (severe): Code(s): N18.4 - Chronic kidney disease, stage 4 (severe) Status: Inactive Assessment and Plan: Creat is 3.4, continue to monitor kidney function (5) Atrial fibrillation: Code(s): I48.91 - Unspecified atrial fibrillation Status: Inactive Assessment and Plan: Heart rate better more controlled today pt is off amiodaone drip on oral amio now. (6) Diastolic congestive heart failure: Code(s): I50.30 - Unspecified diastolic (congestive) heart failure Status: Acute Assessment and Plan: Pt seen by cardiology pt is on oral lasix. Ef is 70% diastolic CHF. (7) Essential hypertension: Code(s): I10 - Essential (primary) hypertension Status: Chronic Assessment and Plan: Continue to watch pt is on metoprolol (8) Obstructive sleep apnea: Code(s): G47.33 - Obstructive sleep apnea (adult) (pediatric) Status: Inactive Assessment and Plan: Pt is on cpap (9) Insulin dependent type 2 diabetes mellitus: Code(s): E11.9 - Type 2 diabetes mellitus without complications; Z79.4 - jail (current) use of insulin Status: Inactive Assessment and Plan: accuchecks, SSI , DM diet (10) Current use of alf anticoagulation: Code(s): Z79.01 - jail (current) use of anticoagulants Status: Inactive Assessment and Plan: pt is on xarelto for AF (11) Morbid obesity: Code(s): E66.01 - Morbid (severe) obesity due to excess calories Status: Inactive Assessment and Plan: Advised to loose weight Pt may benefit from rehab once medical stable. Subjective Date/time seen: 04/05/20 12:21 Interval history: 69-year-old morbidly obese female with atrial fibrillation, chronic kidney disease, hypertension, and sleep apnea who presented to the emergency department earlier today via EMS from home in cardiac arrest. was initially in ICU is out of ICU now. AF is better pt can move to medical floor. and then needs rehab placement. Pt has history of AF, sleep apnea, DM, CKD, morbid obesity. Seen By cardiology. Review of Systems Review of Systems: All systems reviewed & are unremarkable except as noted in HPI and below Exam Narrative: Exam Narrative: General: Pleasant morbidly obese HEENT: Normocephalic Neck: Supple. Respiratory: Lungs are clear Cardiovascular: Regular rate and rhythm with S1-S2. Gastrointestinal: Abdomen is soft, morbidly obese, and nondistended with positive bowel sounds. Skin: Warm and dry. Lower extremities are dry with chronic skin changes including hyperpigmentation and thickening of the skin due to chronic stasis. Extremities: No cyanosis or clubbing. No edema of extremities Psychiatric: Normal mood Objective Data Vital Signs Vital Signs: Vital Signs - 24 hr 04/04/20 12:33 04/04/20 14:00 04/04/20 14:34 Temperature 35.6 C L Pulse Rate 126 H 65 74 Respiratory Rate 20 Blood Pressure 125/76 Pulse Oximetry 100 04/04/20 15:24 03/08
[2020-04-05 13:01] LABS: Glucose Point of Care 293 (65-105)
--- NOTE | 2020-04-05 13:53 | PM.PNCARD ---
Progress Note: A&P Assessment and Plan (1) Cardiac arrest: Code(s): I46.9 - Cardiac arrest, cause unspecified Status: Acute Assessment and Plan: sotalol discontinued at admission. Patient suffered a cardiac arrest, apparently was asystolic then had a PEA arrest with brief and successful resuscitation. Etiology is uncertain. PE is unlikely if the patient has been taking her Xarelto. No evidence of ventricular arrhythmias. No evidence of an acute ischemic event/ACS by EKG; she does have a mildly elevated troponin but that would be expected after an arrest. No evidence of significant bradycardia on last admission or this admission. Her neurologic status looks good so far. She is hemodynamically stable, not requiring pressors. (2) Afib: Code(s): I48.91 - Unspecified atrial fibrillation Status: Acute Assessment and Plan: History of PAF, converted to sinus rhythm on last admission while on sotalol. sotalol discontinued at presentation with the rest although etiology or association with this medication remains unclear. Given reported arrhythmia would not thought to be secondary to sotalol. Nonetheless, given recurrence of AFib RVR amiodarone was initiated albeit paroxysmal she has maintained sinus rhythm since this morning with heart rate in the 60s. Has been chronically anticoagulated with Xarelto. Continue amiodarone 200 mg p.o. b.i.d.. and metoprolol 50 mg q.12 hours. (3) Diastolic congestive heart failure: Code(s): I50.30 - Unspecified diastolic (congestive) heart failure Status: Acute Assessment and Plan: Preserved EF 70% Difficult to assess volume status Given body habitus. Patient has significant edema although likely component of 3rd spacing with concern for intravascular volume depletion with worsening renal failure with prerenal component. BP has been stable. Other than diuretic she is not on other significant nephrotoxic agents at this time. Continue furosemide. Nephrology following. Discussed options with her including gentle hydration versus holding diuretic briefly. She has already received oral Lasix this morning will monitor renal function tomorrow morning and urine output closely. (4) QT prolongation: Code(s): R94.31 - Abnormal electrocardiogram [ECG] [EKG] Status: Acute Assessment and Plan: QT prolongation has been noted since discharge, but no significant arrhythmias seen. repeat Twelve lead EKG now that she is in sinus rhythm to assess QT interval. (5) CKD (chronic kidney disease): Qualifiers: Chronic kidney disease stage: unspecified stage Qualified Code(s): N18.9 - Chronic kidney disease, unspecified Code(s): N18.9 - Chronic kidney disease, unspecified Status: Chronic Assessment and Plan: Renal function worse this morning. acute on chronic renal failure with initially some improvement now with more abrupt decline for unclear reasons today. Patient has not been significantly hypotensive to explain. followed by Dr. Florian avoid nephrotoxic agents. As above. No recent evidence of contrast exposure review of medications suggests secondary to re-initiation of Lasix, 48-72 hours previously. (6) H/O: HTN (hypertension): Code(s): Z86.79 - Personal history of other diseases of the circulatory system Status: Acute Assessment and Plan: Tends to run a bit high, will continue to follow. (7) Pulmonary hypertension: Code(s): I27.20 - Pulmonary hypertension, unspecified Status: Acute Assessment and Plan: bang
--- NOTE | 2020-04-05 16:16 | PM.PNNEP ---
Progress Note: A&P Assessment and Plan (1) MARC (acute kidney injury): Code(s): N17.9 - Acute kidney failure, unspecified Status: Acute Assessment and Plan: had been improving but up again today -- on/off afib contributing versus diuretics?? - agree with Cardiology - will see what AM labs are and consider trial of holding diuretics and giving trial of gentle IVFs tomorrow initial insult due to diuretic therapy and recent cardiac arrest renal ultrasound without acute issues but does have nephrotic range proteinuria follow trend of repeat labs and UOP (2) CKD (chronic kidney disease): Qualifiers: Chronic kidney disease stage: unspecified stage Qualified Code(s): N18.9 - Chronic kidney disease, unspecified Code(s): N18.9 - Chronic kidney disease, unspecified Status: Chronic Assessment and Plan: baseline creatinine runs ~ 1.8 - 2.0mg/dl likely due to hypertension and diabetes (3) Cardiac arrest: Code(s): I46.9 - Cardiac arrest, cause unspecified Status: Acute Assessment and Plan: Cardiology following due to sotalol(?) (4) Acute respiratory failure: Code(s): J96.00 - Acute respiratory failure, unspecified whether with hypoxia or hypercapnia Status: Acute Assessment and Plan: due to cardiac arrest off ventilator support follow respiratory status (5) Essential hypertension: Code(s): I10 - Essential (primary) hypertension Status: Chronic Assessment and Plan: reasonable hemodynamics at this time follow trend (6) Diabetes mellitus: Qualifiers: Chronic kidney disease stage: stage 3 (moderate) Chronic kidney disease stage 3 subtype: unspecified whether 3a or 3b Diabetes mellitus complication detail: with chronic kidney disease Diabetes mellitus complication status: with kidney complications 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 Subjective Date/time seen: 04/05/20 16:16 No acute complaints voiced at this time but renal function noted to be worsening in the last 24 - 48 hours (and seems to correlate with re-institution of diuretic therapy); no other acute issues/events overnight or earlier this AM; no apparent distress noted; major complaint is that of fatigue and weakness. Exam Narrative: Exam Narrative: General: WD/WN AA female in NAD Heart: normal S1 and S2; no rub Lungs: decreased at bases Abdomen: soft, nontender, nondistended, positive bowel sounds Extremities: no cyanosis or clubbing; 1+edema Skin: warm and intact Objective Data Vital Signs Vital Signs: Vital Signs Temp Pulse Resp BP Pulse Ox 04/05/20 16:00 36.2 C L 67 20 178/71 H 92 04/05/20 14:00 77 04/05/20 12:00 36.5 C 61 22 H 150/72 H 100 04/05/20 11:32 62 04/05/20 10:00 65 04/05/20 09:18 148 H 04/05/20 08:08 100 04/05/20 08:00 36.2 C L 146 H 20 135/90 100 04/05/20 05:34 129 H 04/05/20 04:00 61 04/05/20 03:51 95 04/05/20 03:47 36.6 C 58 L 16 153/87 H 98 04/05/20 03:18 61 18 95 04/05/20 01:35 57 L 04/05/20 00:00 61 04/04/20 23:27 97 04/04/20 23:22 36.2 C L 58 L 21 H 142/54 H 95 04/04/20 21:45 62 18 96 04/04/20 20:00 63 97 04/04/20 19:52 65 04/04/20 19:45 36.6 C 64 20 136/95 H 97 Intake/Output Intake/Output: Intake & Output 04/02/20 04/03/20 04/04/20 04/05/20 23:59 23:59 23:59 23:59 Intake Total 1280 2000 960 1060 Output Total 930 400 600 650 Trev
[2020-04-05] MEDS: RIVAROXABAN 15 MG TABLET PO (17:49)
[2020-04-05 18:15] LABS: Glucose Point of Care 351 (65-105)
[2020-04-05 21:04] LABS: Glucose Point of Care 298 (65-105)
[2020-04-06] VITALS (21 sets, daily range): BP systolic 134–159; BP diastolic 56–89; PULSE 57–139; RESP 15–23; TEMP 36.2–37.1; O2SAT 92–100
[2020-04-06] MEDS: CENTRAL LINE FLUSH 10 ML IV PUSH ×4 (05:29→22:17)
[2020-04-06 05:58] LABS: Basophils Percent Auto 0.2 % (0.2-1.2); Eosinophils Absolute Auto 0.2 K/mm3 (0-0.3); Eosinophils Percent Auto 2.3 % (0-4.4); Hematocrit 31.3 % (37.0-47.0); Hemoglobin 10.1 g/dL (12.0-15.0); Immature Granulocyte Absolute 0.03 K/mm3 (0.00-0.031); Immature Granulocyte Percent A 0.4 % (0-0.5); Lymphocytes Absolute Auto 1.32 K/mm3 (0.9-3.2); Lymphocytes Percent Auto 16.1 % (18.3-44.2); Mean Corpuscular HGB Conc 32.3 g/dl (32-36); Mean Corpuscular Hemoglobin 24.8 pg (26-34); Mean Corpuscular Volume 76.9 fl (80-100); Mean Platelet Volume 11.8 fl (7.4-10.4); Monocytes Absolute Auto 0.9 K/mm3 (0.1-0.6); Monocytes Percent Auto 10.4 % (2.6-8.5); Neutrophils Absolute Auto 5.8 K/mm3 (1.3-6.7); Neutrophils Percent Auto 70.6 % (45.5-73.1); Platelet Count Result 166 k/mm3 (150-375); Red Blood Count 4.07 M/mm3 (4.2-5.4); White Blood Count 8.2 K/mm3 (4.5-10.0)
[2020-04-06 06:11] LABS: Anion Gap 2 mmol/L (8-16); Blood Urea Nitrogen 78 mg/dL (7-17); Calcium 9.4 mg/dL (8.4-10.2); Carbon Dioxide 29 mmol/L (22-30); Chloride 108 mmol/L (98-107); Estimated CRCL calculation 18 ml/min; Estimated Glomerular Filt Rate 14; Glucose 243 mg/dL (65-105); Potassium 3.9 mmol/L (3.4-5.0); Sodium 139 mmol/L (137-145)
--- NOTE | 2020-04-06 08:55 | PM.IMPN ---
Progress Note: A&P Assessment and Plan (1) Cardiac arrest: Code(s): I46.9 - Cardiac arrest, cause unspecified Status: Acute Assessment and Plan: PEA No issues since sotalol held (2) Syncope: Code(s): R55 - Syncope and collapse Status: Resolved Assessment and Plan: Due to cardiac arrest (3) Acute respiratory failure: Code(s): J96.00 - Acute respiratory failure, unspecified whether with hypoxia or hypercapnia Status: Acute Assessment and Plan: Sp intubation pt has history of sleep apnea and obesity -hypoventilation syndrome and CHF (4) Chronic kidney disease, stage 4 (severe): Code(s): N18.4 - Chronic kidney disease, stage 4 (severe) Status: Inactive Assessment and Plan: 04/06 creat up to 4.0 I/O -150 last 24 hours Furosemide held F/u lab Consider genlte fluid challenge (5) Atrial fibrillation: Code(s): I48.91 - Unspecified atrial fibrillation Status: Inactive Assessment and Plan: AF WITH RVR Continue PO amiodarone 200mg bid (6) Diastolic congestive heart failure: Code(s): I50.30 - Unspecified diastolic (congestive) heart failure Status: Acute Assessment and Plan: EF 70% Furosemide held Monitor I/O (7) Essential hypertension: Code(s): I10 - Essential (primary) hypertension Status: Chronic Assessment and Plan: Continue to monitor on metoprolol (8) Obstructive sleep apnea: Code(s): G47.33 - Obstructive sleep apnea (adult) (pediatric) Status: Inactive Assessment and Plan: Continue cpap (9) Insulin dependent type 2 diabetes mellitus: Code(s): E11.9 - Type 2 diabetes mellitus without complications; Z79.4 - senior living (current) use of insulin Status: Inactive Assessment and Plan: accuchecks, SSI , DM diet (10) Current use of alf anticoagulation: Code(s): 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 Reason for this is not explained as mentioned in consult note yesterday. One must consider the possibility of proarrhythmia due to sotalol which was just started during last admission last week. Obviously agent has been stopped and she is maintaining sinus rhythm. 04/06: Tolerating diet. Only c/o is muscle soreness. Review of Systems Review of Systems: All systems reviewed & are unremarkable except as noted in HPI and below Exam Narrative: Exam Narrative: General: Pleasant morbidly obese HEENT: Normocephalic Neck: Supple. No JVD Respiratory: Lungs are clear Cardiovascular: Regular rate and rhythm with NL S1-S2. Gastrointestinal: Abdomen is soft, morbidly obese, and nondistended with positive bowel sounds. Skin: Warm and dry. Lower extremities are dry with chronic skin changes including hyperpigmentation and thickening of the skin due to chronic stasis. Extremities: No cyanosis or clubbing. No edema of extremities Psychiatric: A/o x 4 Objective Data Vital Signs Vital Signs: Vital Signs - 24 hr 04/05/20 09:18 04/05/20 10:00 04/05/20 11:32 Temperature Pulse Rate 148 H 65 62 Respiratory Rate Blood Pressure Pulse Oximetry 04/05/20 12:00 04/05/20 14:00 04/05/20 16:00 Temperature 97.7 F 97.2 F L Pulse Rate 61 77 67 Respiratory Rate 22 H 20 Blood Pressure 150/72 H 178/71 H Pulse Oximetry 100 92 04/05/20 17:49 04/05/20 18:00 04/05/20 19:48 Temperature 97 F L Pulse Rate 66 66 65 Respi
[2020-04-06 09:04] LABS: Glucose Point of Care 250 (65-105)
[2020-04-06] MEDS: TIMOLOL MALEATE 0.5% OP SOLN 5 ML BOTTLE 1 DROP EACH EYE ×2 (10:20→20:44)
[2020-04-06] MEDS: AMIODARONE HCL 200 MG TABLET PO ×2 (10:21→17:17)
[2020-04-06] MEDS: guaiFENesin 200 MG/10 ML UDC PO ×2 (10:21→17:17)
[2020-04-06] MEDS: METOPROLOL TARTRATE 50 MG TAB PO ×2 (10:21→20:45)
[2020-04-06] MEDS: BRIMONIDINE TARTRATE 0.2% OP SOLN 5 ML BTL 1 DROP EACH EYE ×2 (10:21→20:46)
[2020-04-06] MEDS: SIMVASTATIN 20 MG TABLET PO (10:21)
[2020-04-06] MEDS: INSULIN ASPART (*BKC) 100 UNITS/ML SUB-Q ×3 (10:25→15:17)
--- NOTE | 2020-04-06 11:25 | PM.PNCARD ---
Progress Note: A&P Assessment and Plan (1) Cardiac arrest: Code(s): I46.9 - Cardiac arrest, cause unspecified Status: Acute Assessment and Plan: sotalol discontinued at admission. Patient suffered a cardiac arrest, apparently was asystolic then had a PEA arrest with brief and successful resuscitation. Etiology is uncertain. PE is unlikely if the patient has been taking her Xarelto. No evidence of ventricular arrhythmias. No evidence of an acute ischemic event/ACS by EKG; she does have a mildly elevated troponin but that would be expected after an arrest. No evidence of significant bradycardia on last admission or this admission. Her neurologic status looks good so far. She is hemodynamically stable, not requiring pressors. (2) Afib: Code(s): I48.91 - Unspecified atrial fibrillation Status: Acute Assessment and Plan: History of PAF, converted to sinus rhythm on last admission while on sotalol. sotalol discontinued at presentation with the rest although etiology or association with this medication remains unclear. Given reported arrhythmia would not thought to be secondary to sotalol. Nonetheless, given recurrence of AFib RVR amiodarone was initiated albeit paroxysmal she has maintained sinus rhythm since this morning with heart rate in the 60s. Has been chronically anticoagulated with Xarelto. Continue amiodarone 200 mg p.o. b.i.d.. and metoprolol 50 mg q.12 hours. (3) Diastolic congestive heart failure: Code(s): I50.30 - Unspecified diastolic (congestive) heart failure Status: Acute Assessment and Plan: Preserved EF 70% Difficult to assess volume status Given body habitus. Patient has significant edema although likely component of 3rd spacing with concern for intravascular volume depletion with worsening renal failure with prerenal component. -as such Lasix held for now to observe for improvement in renal function. Will need to monitor volume status quite closely. Nephrology following. -04/06/2020 chest x-ray personally reviewed analyzed with bilateral small pleural effusions and some atelectasis and consolidation can't exclude pneumonia. Patient very complicated with multiple comorbidities. (4) QT prolongation: Code(s): R94.31 - Abnormal electrocardiogram [ECG] [EKG] Status: Acute Assessment and Plan: QT prolongation has been noted since discharge, but no significant arrhythmias seen. -Obtain 12 lead EKG to assess QT interval. Recommendations to follow. Continue amiodarone. Unless prominent QT prolongation is noted, Amiodarone QT prolongation uncommonly results in significant or life-threatening ventricular arrhythmia a given her history will need to monitor. (5) CKD (chronic kidney disease): Qualifiers: Chronic kidney disease stage: unspecified stage Qualified Code(s): N18.9 - Chronic kidney disease, unspecified Code(s): N18.9 - Chronic kidney disease, unspecified Status: Chronic Assessment and Plan: Quite concerning acute on chronic renal failure with significant deterioration over the past 48 hours and again this morning. Acute on chronic renal failure with initially some improvement now with more abrupt decline for unclear reasons. Patient has not been significantly hypotensive to explain. -Lasix held today (last dose 40mg 03/09/20). -Oral intake has been rather poor, pt insistent she is able to eat/drink more today. IF no improvement gentle IVF. (6) H/O: HTN (hypertension): Code(s): Z86.79 - Personal history of other diseases of the circulatory system Status: Acute Assessment and Plan: Tends to run a bit high, will continue to follow. (7) Pulmonary hypertension: Code(s): I27.20 - Pulmon
--- NOTE | 2020-04-06 11:31 | ECG_ITS ---
Measurements Intervals [place] Rate: 127 P: [place]: 0 QRS: 50 QRSD: 90 T: 242 QT: 329 QTc: 480 Interpretive Statements ATRIAL FIBRILLATION WITH RAPID VENTRICULAR RESPONSE INCOMPLETE RIGHT BUNDLE BRANCH BLOCK NONSPECIFIC ST & T-WAVE ABNORMALITY- INF/LAT LEADS ABNORMAL ECG Electronically Signed On 04-06-2020 14:56:32 BONE DRIER OPERATOR by Garrett Bucio D.O.
--- NOTE | 2020-04-06 11:52 | PC.NURSE ---
This patient, Shaniqua Oakley, was transferred to [facility] on 04/06/20 at 1141. Personal belongings sent with patient. Report given to Noam WILLINGHAM. Appropriate documentation sent with patient.
[2020-04-06 12:00] LABS: Glucose Point of Care 297 (65-105)
--- NOTE | 2020-04-06 13:39 | PM.PNNEP ---
Progress Note: A&P Assessment and Plan (1) MARC (acute kidney injury): Code(s): N17.9 - Acute kidney failure, unspecified Status: Acute Assessment and Plan: had been improving but up again today -- on/off afib contributing versus diuretics?? - agree with Cardiology - hold diuretics today - if AM labs worse, trial of gentle IVFs tomorrow initial insult due to diuretic therapy and recent cardiac arrest renal ultrasound without acute issues but does have nephrotic range proteinuria follow trend of repeat labs and UOP (2) CKD (chronic kidney disease): Qualifiers: Chronic kidney disease stage: unspecified stage Qualified Code(s): N18.9 - Chronic kidney disease, unspecified Code(s): N18.9 - Chronic kidney disease, unspecified Status: Chronic Assessment and Plan: baseline creatinine runs ~ 1.8 - 2.0mg/dl likely due to hypertension and diabetes (3) Cardiac arrest: Code(s): I46.9 - Cardiac arrest, cause unspecified Status: Acute Assessment and Plan: Cardiology following due to sotalol(?) (4) Acute respiratory failure: Code(s): J96.00 - Acute respiratory failure, unspecified whether with hypoxia or hypercapnia Status: Acute Assessment and Plan: due to cardiac arrest off ventilator support follow respiratory status (5) Essential hypertension: Code(s): I10 - Essential (primary) hypertension Status: Chronic Assessment and Plan: reasonable hemodynamics at this time follow trend (6) Diabetes mellitus: Qualifiers: Diabetes mellitus type: type 2 Diabetes mellitus buttermaker insulin use: with care home use Diabetes mellitus complication status: with kidney complications Diabetes mellitus complication detail: with chronic kidney disease Chronic kidney disease stage: stage 3 (moderate) Chronic kidney disease stage 3 subtype: unspecified whether 3a or 3b Qualified Code(s): E11.22 - Type 2 diabetes mellitus with diabetic chronic kidney disease; N18.30 - Chronic kidney disease, stage 3 unspecified; Z79.4 - custodial (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 Subjective Date/time seen: 04/06/20 13:39 Creatinine continues to worsen although her oral intake has been suboptimal for the last few days -- she will try to work harder on this issue; otherwise, no apparent distress voiced at this time; no events overnight to report. Exam Narrative: Exam Narrative: General: WD/WN AA female in NAD Heart: normal S1 and S2; no rub Lungs: decreased at bases Abdomen: soft, nontender, nondistended, positive bowel sounds Extremities: no cyanosis or clubbing; 1+edema Skin: no rash Objective Data Vital Signs Vital Signs: Vital Signs Temp Pulse Resp BP Pulse Ox 04/06/20 12:00 128 H 17 95 04/06/20 11:35 36.2 C L 117 H 20 149/80 H 100 04/06/20 10:21 128 H 04/06/20 10:00 133 H 04/06/20 09:16 96 04/06/20 08:00 36.2 C L 65 18 151/58 H 96 04/06/20 06:00 66 04/06/20 04:00 59 L 99 04/06/20 03:47 36.4 C L 59 L 18 142/56 H 99 04/06/20 02:00 59 L 04/06/20 01:45 57 L 18 98 04/06/20 00:00 59 L 98 04/05/20 23:43 36.1 C L 58 L 19 139/46 L 100 04/05/20 23:00 62 21 H 99 04/05/20 22:00 63 04/05/20 21:53 62 04/05/20 20:00 65 98 04/05/20 19:48 36.1 C L 65 18 150/58 H 98 04/05/20 18:00 66 04/05/20 17:49 66 Intake/Output Intake/Output: Intake & Output 04/03/20 04/04/20 04/05/20 04/06/20 23:59 23:59 23:59 23:59 Intake Total 1999 960 1300 590 Output Total 400 600 650 625 Balance 1600 360 650 -35 Meds/Results Medications: Active Medications Generic Name Dose Route Start Last Admin Trade Name Freq
[2020-04-06 17:14] LABS: Glucose Point of Care 248 (65-105)
[2020-04-06] MEDS: ACETAMINOPHEN 325 MG TABLET 650 MG PO (17:17)
[2020-04-06] MEDS: RIVAROXABAN 15 MG TABLET PO (17:17)
[2020-04-06 20:41] LABS: Glucose Point of Care 321 (65-105)
[2020-04-06] MEDS: INSULIN GLARGINE (*BKC) 100 UNITS/ML 21 UNITS SUB-Q (20:45)
[2020-04-07] VITALS (23 sets, daily range): BP systolic 110–151; BP diastolic 38–75; PULSE 41–128; RESP 18–23; TEMP 36.7–36.8; O2SAT 93
[2020-04-07 05:34] LABS: Hematocrit 30.9 % (37.0-47.0); Hemoglobin 10.1 g/dL (12.0-15.0); Mean Corpuscular HGB Conc 32.7 g/dl (32-36); Mean Corpuscular Hemoglobin 25.2 pg (26-34); Mean Corpuscular Volume 77.1 fl (80-100); Mean Platelet Volume 11.4 fl (7.4-10.4); Platelet Count Result 190 k/mm3 (150-375); Red Blood Count 4.01 M/mm3 (4.2-5.4); Red Cell Distribution Width 14.2 % (11.5-14.5); White Blood Count 9.4 K/mm3 (4.5-10.0)
[2020-04-07 05:41] LABS: Anion Gap 6 mmol/L (8-16); Blood Urea Nitrogen 77 mg/dL (7-17); Calcium 9.4 mg/dL (8.4-10.2); Carbon Dioxide 28 mmol/L (22-30); Chloride 107 mmol/L (98-107); Estimated CRCL calculation 17 ml/min; Estimated Glomerular Filt Rate 13; Glucose 278 mg/dL (65-105); Phosphorus 4.4 mg/dL (2.5-4.5); Potassium 4.4 mmol/L (3.4-5.0); Sodium 141 mmol/L (137-145)
[2020-04-07] MEDS: CENTRAL LINE FLUSH 10 ML IV PUSH ×4 (05:46→21:01)
[2020-04-07 08:02] LABS: Glucose Point of Care 253 (65-105)
[2020-04-07] MEDS: AMIODARONE HCL 200 MG TABLET PO (08:46)
[2020-04-07] MEDS: SIMVASTATIN 20 MG TABLET PO (08:46)
[2020-04-07] MEDS: TIMOLOL MALEATE 0.5% OP SOLN 5 ML BOTTLE 1 DROP EACH EYE ×2 (08:47→20:55)
[2020-04-07] MEDS: BRIMONIDINE TARTRATE 0.2% OP SOLN 5 ML BTL 1 DROP EACH EYE ×2 (08:47→20:55)
[2020-04-07] MEDS: METOPROLOL TARTRATE 50 MG TAB PO ×2 (08:47→20:56)
--- NOTE | 2020-04-07 09:25 | PM.PNCARD ---
Progress Note: A&P Assessment and Plan (1) Cardiac arrest: Code(s): I46.9 - Cardiac arrest, cause unspecified Status: Acute Assessment and Plan: sotalol discontinued at admission. Patient suffered a cardiac arrest, apparently was asystolic then had a PEA arrest with brief and successful resuscitation. Etiology is uncertain. PE is unlikely if the patient has been taking her Xarelto. No evidence of ventricular arrhythmias. No evidence of an acute ischemic event/ACS by EKG; she does have a mildly elevated troponin but that would be expected after an arrest. No evidence of significant bradycardia on last admission or this admission. Her neurologic status looks good so far. She is hemodynamically stable, not requiring pressors. (2) Afib: Code(s): I48.91 - Unspecified atrial fibrillation Status: Acute Assessment and Plan: AFib with RVR recurrence despite amiodarone. Give IV 150 mg amiodarone bolus, increase to 400 mg p.o. b.i.d. for the next 2 days. Adjustment in metoprolol depending upon response to above therapy. Patient is asymptomatic at this time. History of PAF, converted to sinus rhythm on last admission while on sotalol. sotalol discontinued at presentation with the rest although etiology or association with this medication remains unclear. Given reported arrhythmia would not thought to be secondary to sotalol. (3) Diastolic congestive heart failure: Code(s): I50.30 - Unspecified diastolic (congestive) heart failure Status: Acute Assessment and Plan: Preserved EF 70% Difficult to assess volume status Given body habitus. Patient has significant edema although likely component of 3rd spacing with concern for intravascular volume depletion with worsening renal failure with prerenal component. -as such Lasix held for now to observe for improvement in renal function. Will need to monitor volume status quite closely. Nephrology following. -04/06/2020 chest x-ray personally reviewed analyzed with bilateral small pleural effusions and some atelectasis and consolidation can't exclude pneumonia. Patient very complicated with multiple comorbidities. (4) QT prolongation: Code(s): R94.31 - Abnormal electrocardiogram [ECG] [EKG] Status: Acute Assessment and Plan: QT prolongation has been noted since discharge, but no significant arrhythmias seen. -by EKG QT corrected acceptable but difficult to assess during AFib with RVR which unfortunately recurred. (5) CKD (chronic kidney disease): Qualifiers: Chronic kidney disease stage: unspecified stage Qualified Code(s): N18.9 - Chronic kidney disease, unspecified Code(s): N18.9 - Chronic kidney disease, unspecified Status: Chronic Assessment and Plan: Quite concerning acute on chronic renal failure with ongoing deterioration. Acute on chronic renal failure with initially some improvement now with more abrupt decline for unclear reasons. Patient has not been significantly hypotensive to explain. -Lasix held today (last dose 40mg 03/09/20). -Oral intake improving but renal function continues to worsen. Give IV normal saline 500 mL total 75 ml/hr. (6) H/O: HTN (hypertension): Code(s): Z86.79 - Personal history of other diseases of the circulatory system Status: Acute Assessment and Plan: Tends to run a bit high, will continue to follow. (7) Pulmonary hypertension: Code(s): I27.20 - Pulmonary hypertension, unspecified Status: Acute Assessment and Plan: severe, RVSP 68 mm Hg 03/31/2020. [id number] tricuspid regurgitation mild mitral regurgitation. Pulmonary hypertension most likely secondary to long-standing untreated obstructive sleep apnea,
[2020-04-07] MEDS: ACETAMINOPHEN 325 MG TABLET 650 MG PO ×2 (09:30→20:56)
[2020-04-07] MEDS: INSULIN ASPART (*BKC) 100 UNITS/ML SUB-Q ×3 (09:38→18:13)
[2020-04-07] MEDS: AMIODARONE 150 MG/D5W 100 ML 150 MG/100 ML BAG 600 MG IV CONT (10:02)
[2020-04-07] MEDS: SODIUM CHLORIDE 0.9% IV 500 ML 75 ML IV CONT (10:15)
[2020-04-07] MEDS: SODIUM CHLORIDE 0.9% IV 250 ML 999 ML IV CONT (10:40)
--- NOTE | 2020-04-07 12:03 | PM.IMPN ---
Progress Note: A&P Assessment and Plan (1) Cardiac arrest: Code(s): I46.9 - Cardiac arrest, cause unspecified Status: Acute Assessment and Plan: pt has history of sleep apnea and obesity -hypoventilation syndrome and CHF and Af. Pt was in ICU was intubated on ventilator. Pt extubated doing well Hr good pt is on BIPAP PEA Cardiac arrest- secondary to syncope and SB EKG showed QT prolongation ACS unlikely, PE unlikely CT chest and head ordered on admission CT chest shows pulmonary edema (2) Syncope: Code(s): R55 - Syncope and collapse Status: Resolved (3) Acute respiratory failure: Code(s): J96.00 - Acute respiratory failure, unspecified whether with hypoxia or hypercapnia Status: Acute Assessment and Plan: Sp intubation pt has history of sleep apnea and obesity -hypoventilation syndrome and CHF I will order Cxr tomorrow AM for cough and add Breathing treatments today Pt to continue on Cpap at night (4) Chronic kidney disease, stage 4 (severe): Code(s): N18.4 - Chronic kidney disease, stage 4 (severe) Status: Inactive Assessment and Plan: Continue to monitor kidney function (5) Atrial fibrillation: Code(s): I48.91 - Unspecified atrial fibrillation Status: Inactive Assessment and Plan: AF WITH RVR, pt is on amiodarone, cardiology adjusting this. (6) Diastolic congestive heart failure: Code(s): I50.30 - Unspecified diastolic (congestive) heart failure Status: Acute Assessment and Plan: Pt seen by cardiology pt is on oral lasix. Ef is 70% diastolic CHF. (7) Essential hypertension: Code(s): I10 - Essential (primary) hypertension Status: Chronic Assessment and Plan: Continue to watch pt is on metoprolol (8) Obstructive sleep apnea: Code(s): G47.33 - Obstructive sleep apnea (adult) (pediatric) Status: Inactive Assessment and Plan: Pt is on cpap (9) Insulin dependent type 2 diabetes mellitus: Code(s): E11.9 - Type 2 diabetes mellitus without complications; Z79.4 - middle or intermediate school principal (current) use of insulin Status: Inactive Assessment and Plan: accuchecks, SSI , DM diet (10) Current use of keno terminal operator anticoagulation: Code(s): Z79.01 - assisted (current) use of anticoagulants Status: Inactive Assessment and Plan: pt is on xarelto for AF (11) Morbid obesity: Code(s): E66.01 - Morbid (severe) obesity due to excess calories Status: Inactive Assessment and Plan: Advised to loose weight Pt may benefit from rehab once medical stable. Subjective Date/time seen: 04/07/20 12:03 Interval history: 69-year-old morbidly obese female with atrial fibrillation, chronic kidney disease, hypertension, and sleep apnea who presented to the emergency department earlier today via EMS from home in cardiac arrest. was initially intubated in ICU is out of ICU now. Pt is on a amiodarone drip for AF with RVR Pt has history of AF, sleep apnea, DM, CKD, morbid obesity. Seen by cardiology and nephrology Pt heart rate is high today, pt is back with AF with RVR. Pt is having bad wet cough today Review of Systems Review of Systems: All systems reviewed & are unremarkable except as noted in HPI and below Exam Narrative: Exam Narrative: General: Pleasant morbidly obese HEENT: Normocephalic Neck: Supple. No JVD Respiratory: Lungs are clear Cardiovascular: Fast irregular heart rate Gastrointestinal: Abdomen is soft, morbidly obese, and nondistended with positive bowel sounds. Skin: Warm and dry. Lower extremities are dry with chronic skin changes including hyperpigmentation and thickening of the skin due to chronic stasis. Extremities: No cyanosis or clubbing. No edema of extremities Psychiatric: A/o x 4 Objective Data Vital Signs Vital Signs: Vital Signs - 24 hr 04/06/20 13:40 04/06/20 14:00 04/06/20
[2020-04-07 12:52] LABS: Glucose Point of Care 320 (65-105)
[2020-04-07] MEDS: PANTOPRAZOLE 40 MG TABLET PO (12:55)
[2020-04-07 17:39] LABS: Glucose Point of Care 361 (65-105)
[2020-04-07] MEDS: AMIODARONE HCL 200 MG TABLET 400 MG PO (18:12)
[2020-04-07] MEDS: RIVAROXABAN 15 MG TABLET PO (18:13)
--- NOTE | 2020-04-07 18:37 | P.PNNP_ITS ---
Progress Note: A&P Assessment and Plan (1) MARC (acute kidney injury): Code(s): N17.9 - Acute kidney failure, unspecified Status: Acute Assessment and Plan: * initial insult due to diuretic therapy and recent cardiac arrest * her creatinine seemed to improve a little bit but in the last few days has been worsening. * renal ultrasound without acute issues but does have nephrotic range proteinuria * Intake/output has been positive. She is getting a little bit of IV fluids today. * Chest x-ray shows some fluid. * She is not on any oxygen is and is not short of breath * will get urine electrolytes and see where we are. She is not on diuretics. If she is pre renal then we could try continuing to give her fluids gingerly. * if urine electrolytes are not pre renal then consider biopsy? * She has nephrotic range proteinuria which could be from her diabetes, but she does have a little blood in her urine. She is on blood thinners and these would have to be held. We will see how the urine electrolytes look and I will talk with Cardiology. (2) CKD (chronic kidney disease): Qualifiers: Chronic kidney disease stage: unspecified stage Qualified Code(s): N18.9 - Chronic kidney disease, unspecified Code(s): N18.9 - Chronic kidney disease, unspecified Status: Chronic Assessment and Plan: * baseline creatinine runs ~ 1.8 - 2.0mg/dl * likely due to hypertension and diabetes (3) Cardiac arrest: Code(s): I46.9 - Cardiac arrest, cause unspecified Status: Acute Assessment and Plan: * Cardiology following * due to sotalol(?) (4) Acute respiratory failure: Code(s): J96.00 - Acute respiratory failure, unspecified whether with hypoxia or hypercapnia Status: Acute Assessment and Plan: * due to cardiac arrest * off ventilator support * follow respiratory status (5) Essential hypertension: Code(s): I10 - Essential (primary) hypertension Status: Chronic Assessment and Plan: * reasonable hemodynamics at this time * follow trend (6) Diabetes mellitus: Qualifiers: Diabetes mellitus type: type 2 Diabetes mellitus intermediate manager insulin use: with intermediate manager use Diabetes mellitus complication status: with kidney complications Diabetes mellitus complication detail: with chronic kidney disease Chronic kidney disease stage: stage 3 (moderate) Chronic kidney disease stage 3 subtype: unspecified whether 3a or 3b Qualified Code(s): E11.22 - Type 2 diabetes mellitus with diabetic chronic kidney disease; N18.30 - Chronic kidney disease, stage 3 unspecified; Z79.4 - buttermaker (current) use of insulin Code(s): E11.9 - Type 2 diabetes mellitus without complications Status: Chronic Assessment and Plan: * follow accuchecks * on SSI Subjective Date/time seen: 04/07/20 18:37 Interval history: Patient is alert. She feels okay. No chest pain or shortness of breath she is weak. She does not have much of an appetite. Review of Systems Cardiovascular: Cardiovascular: Reports no additional cardiovascular complaints Respiratory: Respiratory: Reports no additional respiratory complaints Gastrointestinal: Gastrointestinal: Reports no additional gastrointestinal complaints Genitourinary: Genitourinary: Reports no additional female genitourinary complaints Exam Narrative: Exam Narrative: General: WD/WN AA female in NAD Heart: normal S1 and S2;
--- NOTE | 2020-04-07 18:37 | PM.PNNEP ---
Progress Note: A&P Assessment and Plan (1) MARC (acute kidney injury): Code(s): N17.9 - Acute kidney failure, unspecified Status: Acute Assessment and Plan: initial insult due to diuretic therapy and recent cardiac arrest her creatinine seemed to improve a little bit but in the last few days has been worsening. renal ultrasound without acute issues but does have nephrotic range proteinuria Intake/output has been positive. She is getting a little bit of IV fluids today. Chest x-ray shows some fluid. She is not on any oxygen is and is not short of breath will get urine electrolytes and see where we are. She is not on diuretics. If she is pre renal then we could try continuing to give her fluids gingerly. if urine electrolytes are not pre renal then consider biopsy? She has nephrotic range proteinuria which could be from her diabetes, but she does have a little blood in her urine. She is on blood thinners and these would have to be held. We will see how the urine electrolytes look and I will talk with Cardiology. (2) CKD (chronic kidney disease): Qualifiers: Chronic kidney disease stage: unspecified stage Qualified Code(s): N18.9 - Chronic kidney disease, unspecified Code(s): N18.9 - Chronic kidney disease, unspecified Status: Chronic Assessment and Plan: baseline creatinine runs ~ 1.8 - 2.0mg/dl likely due to hypertension and diabetes (3) Cardiac arrest: Code(s): I46.9 - Cardiac arrest, cause unspecified Status: Acute Assessment and Plan: Cardiology following due to sotalol(?) (4) Acute respiratory failure: Code(s): J96.00 - Acute respiratory failure, unspecified whether with hypoxia or hypercapnia Status: Acute Assessment and Plan: due to cardiac arrest off ventilator support follow respiratory status (5) Essential hypertension: Code(s): I10 - Essential (primary) hypertension Status: Chronic Assessment and Plan: reasonable hemodynamics at this time follow trend (6) Diabetes mellitus: Qualifiers: Diabetes mellitus type: type 2 Diabetes mellitus terminal manager insulin use: with intermediate use Diabetes mellitus complication status: with kidney complications Diabetes mellitus complication detail: with chronic kidney disease Chronic kidney disease stage: stage 3 (moderate) Chronic kidney disease stage 3 subtype: unspecified whether 3a or 3b Qualified Code(s): E11.22 - Type 2 diabetes mellitus with diabetic chronic kidney disease; N18.30 - Chronic kidney disease, stage 3 unspecified; Z79.4 - salvage determiner (current) use of insulin Code(s): E11.9 - Type 2 diabetes mellitus without complications Status: Chronic Assessment and Plan: follow accuchecks on SSI Subjective Date/time seen: 04/07/20 18:37 Interval history: Patient is alert. She feels okay. No chest pain or shortness of breath she is weak. She does not have much of an appetite. Review of Systems Cardiovascular: Cardiovascular: Reports no additional cardiovascular complaints Respiratory: Respiratory: Reports no additional respiratory complaints Gastrointestinal: Gastrointestinal: Reports no additional gastrointestinal complaints Genitourinary: Genitourinary: Reports no additional female genitourinary complaints Exam Narrative: Exam Narrative: General: WD/WN AA female in NAD Heart: normal S1 and S2; no rub or gallop Lungs: decreased at bases Abdomen: soft, nontender, nondistended, positive bowel sounds Extremities: no cyanosis or clubbing; 1+edema Skin: no rash Or subcu nodules Objective Data Vital Signs Vital Signs: Vital Signs - 24 hr 04/06/20 20:00 04/06/20 20:30 04/06/20 20:45 Temperature 37.1 C Pulse Rate 139 H 129 H 128 H Respiratory Rate 23 H Blood Pressure 134/89 Pulse Oximetry 92 04/07/20 00:00 04/07/20 04:00 04/07/20 06:00 [place]
[2020-04-07] MEDS: LEVALBUTEROL NEB 1.25 MG/3 ML 0.63 MG INHALATION (19:53)
[2020-04-07] MEDS: INSULIN GLARGINE (*BKC) 100 UNITS/ML 21 UNITS SUB-Q (20:57)
[2020-04-07 21:24] LABS: Glucose Point of Care 342 (65-105)
[2020-04-07 21:39] LABS: Creatinine Urine 115.9 mg/dL; Total Protein Urine Random 100 mg/dL; Ur Ttl Prot Creatinine Ratio 0.86 mg/mg (0-0.20)
[2020-04-07 21:46] LABS: Sodium Urine Random 27 meq/L
[2020-04-08] VITALS (21 sets, daily range): BP systolic 127–157; BP diastolic 56–68; PULSE 54–67; RESP 16–22; TEMP 36.6–36.7; O2SAT 85–97
[2020-04-08] MEDS: LEVALBUTEROL NEB 1.25 MG/3 ML 0.63 MG INHALATION ×4 (01:34→20:56)
[2020-04-08] MEDS: CENTRAL LINE FLUSH 10 ML IV PUSH ×4 (05:14→22:16)
[2020-04-08 05:50] LABS: Hemoglobin 10.1 g/dL (12.0-15.0); Mean Corpuscular HGB Conc 32.6 g/dl (32-36); Mean Corpuscular Hemoglobin 24.9 pg (26-34); Mean Corpuscular Volume 76.5 fl (80-100); Mean Platelet Volume 11.5 fl (7.4-10.4); Platelet Count Result 190 k/mm3 (150-375); Red Blood Count 4.05 M/mm3 (4.2-5.4); Red Cell Distribution Width 14.4 % (11.5-14.5); White Blood Count 8.8 K/mm3 (4.5-10.0)
[2020-04-08 06:06] LABS: Albumin Level 3.2 g/dL (3.5-5.1); Anion Gap 7 mmol/L (8-16); Blood Urea Nitrogen 76 mg/dL (7-17); Calcium 9.2 mg/dL (8.4-10.2); Carbon Dioxide 28 mmol/L (22-30); Chloride 107 mmol/L (98-107); Estimated CRCL calculation 16 ml/min; Estimated Glomerular Filt Rate 12; Glucose 248 mg/dL (65-105); Magnesium 2.3 mg/dL (1.6-2.3); Phosphorus 4.5 mg/dL (2.5-4.5); Potassium 4.2 mmol/L (3.4-5.0); Sodium 142 mmol/L (137-145)
[2020-04-08 08:00] LABS: Glucose Point of Care 215 (65-105)
--- NOTE | 2020-04-08 09:00 | PM.PNCARD ---
Progress Note: A&P Assessment and Plan (1) Cardiac arrest: Code(s): I46.9 - Cardiac arrest, cause unspecified Status: Acute Assessment and Plan: sotalol discontinued at admission. No recurrence. Very complicated clinical picture. Patient suffered a cardiac arrest, apparently was asystolic then had a PEA arrest with brief and successful resuscitation. Etiology is uncertain. PE is unlikely if the patient has been taking her Xarelto. No evidence of ventricular arrhythmias. No evidence of an acute ischemic event/ACS by EKG; she does have a mildly elevated troponin but that would be expected after an arrest. No evidence of significant bradycardia on last admission or this admission. Her neurologic status looks good so far. She is hemodynamically stable, not requiring pressors. (2) Afib: Code(s): I48.91 - Unspecified atrial fibrillation Status: Acute Assessment and Plan: Given IV 150 mg amiodarone bolus for recurrence of AFib with RVR 04/06/20/ converting to sinus rhythm yesterday maintaining sinus bradycardia., continue amiodarone 400 mg p.o. b.i.d. for another 24 hours. Adjustment in metoprolol depending upon response to above therapy. Patient is asymptomatic at this time. Pattern is concerning for degree of tachycardia bradycardia syndrome. If she continues to have recurrence of AFib with RVR despite medical therapy as well as sinus bradycardia particularly if that necessitates down titration of rate-controlling medications it is possible she may require pacemaker implantation. She does not meet indications presently but will continue to monitor closely in that regard. History of PAF, converted to sinus rhythm on last admission while on sotalol. sotalol discontinued at presentation with the rest although etiology or association with this medication remains unclear. Given reported arrhythmia would not thought to be secondary to sotalol. (3) Diastolic congestive heart failure: Code(s): I50.30 - Unspecified diastolic (congestive) heart failure Status: Acute Assessment and Plan: Preserved EF 70% Difficult to assess volume status Given body habitus. Patient has significant edema although likely component of 3rd spacing with concern for intravascular volume depletion with worsening renal failure with prerenal component. - Lasix has been held for several days, IV fluid total 750 given yesterday yet renal function continues to deteriorate. -04/06/2020 chest x-ray personally reviewed analyzed with bilateral small pleural effusions and some atelectasis and consolidation can't exclude pneumonia. -2.3, stable. Patient very complicated with multiple comorbidities. (4) QT prolongation: Code(s): R94.31 - Abnormal electrocardiogram [ECG] [EKG] Status: Acute Assessment and Plan: QT prolongation has been noted since discharge, but no significant arrhythmias seen. -12 lead EKG today to assess QT interval. (5) CKD (chronic kidney disease): Qualifiers: Chronic kidney disease stage: unspecified stage Qualified Code(s): N18.9 - Chronic kidney disease, unspecified Code(s): N18.9 - Chronic kidney disease, unspecified Status: Chronic Assessment and Plan: Very concerning that her renal function continues to deteriorate particularly in light of nephrotic range proteinuria. Nephrology following. Greatly appreciate their recommendations. -Lasix remains on hold. Follow chest x-ray, volume status. (6) H/O: HTN (hypertension): Code(s): Z86.79 - Personal history of other diseases of the circulatory system Status: Acute Assessment and Plan: Tends to run a bit high, will continue to follow. (7) Pulmonary hypertension: Code(s)
[2020-04-08] MEDS: INSULIN ASPART (*BKC) 100 UNITS/ML SUB-Q ×2 (09:01→13:32)
--- NOTE | 2020-04-08 09:09 | ECG_ITS ---
Measurements Intervals [place] Rate: 58 P: 35 LA: 150 QRS: 44 QRSD: 99 T: 53 QT: 448 QTc: 444 Interpretive Statements SINUS BRADYCARDIA INCOMPLETE RIGHT BUNDLE BRANCH BLOCK NONSPECIFIC T-WAVE ABNORMALITY- DIFFUSE LEADS BASELINE WANDER- I, II, III BORDERLINE ECG Electronically Signed On 04-08-2020 11:58:46 CONSULTING PRACTICE MANAGER by Garrett Bucio D.O.
[2020-04-08] MEDS: METOPROLOL TARTRATE 50 MG TAB PO (09:23)
[2020-04-08] MEDS: PANTOPRAZOLE 40 MG TABLET PO (09:23)
[2020-04-08] MEDS: AMIODARONE HCL 200 MG TABLET 400 MG PO ×2 (09:23→17:08)
[2020-04-08] MEDS: SIMVASTATIN 20 MG TABLET PO (09:23)
[2020-04-08] MEDS: TIMOLOL MALEATE 0.5% OP SOLN 5 ML BOTTLE 1 DROP EACH EYE ×2 (09:26→20:37)
[2020-04-08] MEDS: BRIMONIDINE TARTRATE 0.2% OP SOLN 5 ML BTL 1 DROP EACH EYE ×2 (09:27→20:34)
[2020-04-08] MEDS: ALTEPLASE 2 MG VIAL (CATHFLO) IV PUSH ×2 (11:00→11:15)
[2020-04-08 11:35] LABS: Glucose Point of Care 222 (65-105)
--- NOTE | 2020-04-08 12:58 | PC.NURSE ---
Per surgery MD request, Mario put on hold tonight for expected PermaCath insertion tomorrow morning. informed and approved. Will continue to monitor.
--- NOTE | 2020-04-08 16:42 | PM.IMPN ---
Progress Note: A&P Assessment and Plan (1) Pulmonary hypertension: Code(s): I27.20 - Pulmonary hypertension, unspecified Status: Acute Assessment and Plan: Not on supplemental oxygen currently Multifactorial (2) QT prolongation: Code(s): R94.31 - Abnormal electrocardiogram [ECG] [EKG] Status: Acute Assessment and Plan: Avoid drugs with potential for worsening QT interval (3) Acute respiratory failure: Code(s): J96.00 - Acute respiratory failure, unspecified whether with hypoxia or hypercapnia Status: Acute Assessment and Plan: Resolved (4) Diastolic congestive heart failure: Code(s): I50.30 - Unspecified diastolic (congestive) heart failure Status: Acute Assessment and Plan: Diuresed Continue to monitor daily I/O's Appreciate Cardiology note. (5) Syncope: Code(s): R55 - Syncope and collapse Status: Resolved Assessment and Plan: Likely cardiac in nature as patient went into cardiac arrest (6) Cardiac arrest: Code(s): I46.9 - Cardiac arrest, cause unspecified Status: Acute Assessment and Plan: Resolved (7) MARC (acute kidney injury): Code(s): N17.9 - Acute kidney failure, unspecified Status: Acute Assessment and Plan: Worsening Will continue to monitor Daily BMP Avoid nephrotoxins Appreciate Nephrology note (8) Atrial fibrillation with rapid ventricular response: Code(s): I48.91 - Unspecified atrial fibrillation Status: Acute Assessment and Plan: Converted to sinus rhythm On Amiodarone (9) Diabetes mellitus: Qualifiers: Diabetes mellitus type: type 2 Diabetes mellitus residential insulin use: with long term care social worker use Diabetes mellitus complication status: with kidney complications Diabetes mellitus complication detail: with chronic kidney disease Chronic kidney disease stage: stage 3 (moderate) Chronic kidney disease stage 3 subtype: unspecified whether 3a or 3b Qualified Code(s): E11.22 - Type 2 diabetes mellitus with diabetic chronic kidney disease; N18.30 - Chronic kidney disease, stage 3 unspecified; Z79.4 - [facility] (current) use of insulin Code(s): E11.9 - Type 2 diabetes mellitus without complications Status: Chronic Assessment and Plan: Continue carb consistent diet Accu checks ACHS ISS as needed (10) Essential hypertension: Code(s): I10 - Essential (primary) hypertension Status: Chronic Assessment and Plan: Well controlled. (11) Body mass index (BMI) of 50-59.9 in adult: Onset Date: 11/27/18 Code(s): Z68.43 - Body mass index [BMI] 50.0-59.9, adult Status: Acute Assessment and Plan: Lifestyle and diet modifications. (12) KIERRA (obstructive sleep apnea): Code(s): G47.33 - Obstructive sleep apnea (adult) (pediatric) Status: Acute Assessment and Plan: CPAP at night time Subjective Date/time seen: 04/08/20 16:42 States that she feels well. No new issues overnight. Review of Systems Review of Systems: Narrative: No complains at this time. Constitutional: Comments: no chills, no fevers, no rigors. Eyes: Comments: no vision changes. ENT: Comments: no throat pain, no ear ache, no nasal congestion. Cardiovascular: Comments: no chest pain. Respiratory: Comments: no sob, no cough Gastrointestinal: Comments: no n/v/abdominal pain. Musculoskeletal: Comments: no joint pain. Neurologic: Comments: no sensory motor deficit. Exam Narrative: Exam Narrative: Lying in bed. Const: General: comfortable, no acute distress, alert, awake, Physically active and tired appearing Nutritional Appearance: other (Morbid obesity.) Orientation/consciousness: patient oriented x3 HENMT: Head: normocephalic Ears: hearing grossly normal bilaterally General nose exam: Normal external nose present Face and sinus: normal facial exam Eyes: Pupils: Equal, round and re
[2020-04-08 16:57] LABS: Glucose Point of Care 196 (65-105)
[2020-04-08 20:31] LABS: Glucose Point of Care 204 (65-105)
[2020-04-08] MEDS: ONDANSETRON INJ 4 MG/2 ML VIAL IV PUSH (20:34)
[2020-04-08] MEDS: INSULIN GLARGINE (*BKC) 100 UNITS/ML 21 UNITS SUB-Q (20:38)
--- NOTE | 2020-04-08 21:09 | P.PNNP_ITS ---
Progress Note: A&P Assessment and Plan (1) MARC (acute kidney injury): Code(s): N17.9 - Acute kidney failure, unspecified Status: Acute Assessment and Plan: * initial insult due to diuretic therapy and recent cardiac arrest * her creatinine seemed to improve a little bit but in the last few days has been worsening. * renal ultrasound without acute issues but does have nephrotic range proteinuria * Intake/output has been positive. She is getting a little bit of IV fluids today. * Chest x-ray done today and shows more fluid. * creatinine is higher. * Pt has uremic symptoms including poor appetite and some asterixis. * We discussed. pt needs dialysis to help uremia and volume status. we discussed the risks, benefits, alternatives, and process of dialysis. She agrees to proceed. * we also talkd about the possibility of a biopsy. she is thinking about this. (2) CKD (chronic kidney disease): Qualifiers: Chronic kidney disease stage: unspecified stage Qualified Code(s): N18.9 - Chronic kidney disease, unspecified Code(s): N18.9 - Chronic kidney disease, unspecified Status: Chronic Assessment and Plan: * baseline creatinine runs ~ 1.8 - 2.0mg/dl * likely due to hypertension and diabetes (3) Cardiac arrest: Code(s): I46.9 - Cardiac arrest, cause unspecified Status: Acute Assessment and Plan: * Cardiology following * due to sotalol(?) (4) Acute respiratory failure: Code(s): J96.00 - Acute respiratory failure, unspecified whether with hypoxia or hypercapnia Status: Acute Assessment and Plan: * due to cardiac arrest * now on room air. (5) Essential hypertension: Code(s): I10 - Essential (primary) hypertension Status: Chronic Assessment and Plan: * systolic 120 to 160. * this may improve with fluid removal. (6) Diabetes mellitus: Qualifiers: Diabetes mellitus type: type 2 Diabetes mellitus intermediate designer insulin use: with intermediate designer use Diabetes mellitus complication status: with kidney complications Diabetes mellitus complication detail: with chronic kidney disease Chronic kidney disease stage: stage 3 (moderate) Chronic kidney disease stage 3 subtype: unspecified whether 3a or 3b Qualified Code(s): E11.22 - Type 2 diabetes mellitus with diabetic chronic kidney disease; N18.30 - Chronic kidney disease, stage 3 unspecified; Z79.4 - manager long term care (current) use of insulin Code(s): E11.9 - Type 2 diabetes mellitus without complications Status: Chronic Assessment and Plan: * follow accuchecks * on SSI Subjective Date/time seen: 04/08/20 21:09 Interval history: Patient is alert. She feels okay. lying flat in bed she is weak. She does not have much of an appetite. ate just a few bitds of breakfas.t Exam Narrative: Exam Narrative: General: WD/WN AA female in NAD Heart: normal S1 and S2; no rub or gallop Lungs: decreased at bases Abdomen: soft, nontender, nondistended, positive bowel sounds Extremities: no cyanosis or clubbing; 1+edema Skin: no rash Or subcu nodules Objective Data Vital Signs Vital Signs: Vital Signs - 24 hr 04/07/20 22:00 04/08/20 00:00 04/08/20 00:10 Temperature 36.7 C Pulse Rate 67 54 L 58 L Respiratory Rate 20 19 Blood Pressure 151/68 H Pulse Oximetry 93 95 04/08/20 01:30 04/08/20 01:39
--- NOTE | 2020-04-08 21:09 | PM.PNNEP ---
Progress Note: A&P Assessment and Plan (1) MARC (acute kidney injury): Code(s): N17.9 - Acute kidney failure, unspecified Status: Acute Assessment and Plan: initial insult due to diuretic therapy and recent cardiac arrest her creatinine seemed to improve a little bit but in the last few days has been worsening. renal ultrasound without acute issues but does have nephrotic range proteinuria Intake/output has been positive. She is getting a little bit of IV fluids today. Chest x-ray done today and shows more fluid. creatinine is higher. Pt has uremic symptoms including poor appetite and some asterixis. We discussed. pt needs dialysis to help uremia and volume status. we discussed the risks, benefits, alternatives, and process of dialysis. She agrees to proceed. we also talkd about the possibility of a biopsy. she is thinking about this. (2) CKD (chronic kidney disease): Qualifiers: Chronic kidney disease stage: unspecified stage Qualified Code(s): N18.9 - Chronic kidney disease, unspecified Code(s): N18.9 - Chronic kidney disease, unspecified Status: Chronic Assessment and Plan: baseline creatinine runs ~ 1.8 - 2.0mg/dl likely due to hypertension and diabetes (3) Cardiac arrest: Code(s): I46.9 - Cardiac arrest, cause unspecified Status: Acute Assessment and Plan: Cardiology following due to sotalol(?) (4) Acute respiratory failure: Code(s): J96.00 - Acute respiratory failure, unspecified whether with hypoxia or hypercapnia Status: Acute Assessment and Plan: due to cardiac arrest now on room air. (5) Essential hypertension: Code(s): I10 - Essential (primary) hypertension Status: Chronic Assessment and Plan: systolic 120 to 160. this may improve with fluid removal. (6) Diabetes mellitus: Qualifiers: Diabetes mellitus type: type 2 Diabetes mellitus long term acute care registered nurse insulin use: with long term acute care registered nurse use Diabetes mellitus complication status: with kidney complications Diabetes mellitus complication detail: with chronic kidney disease Chronic kidney disease stage: stage 3 (moderate) Chronic kidney disease stage 3 subtype: unspecified whether 3a or 3b Qualified Code(s): E11.22 - Type 2 diabetes mellitus with diabetic chronic kidney disease; N18.30 - Chronic kidney disease, stage 3 unspecified; Z79.4 - technician terminal and repeater (current) use of insulin Code(s): E11.9 - Type 2 diabetes mellitus without complications Status: Chronic Assessment and Plan: follow accuchecks on SSI Subjective Date/time seen: 04/08/20 21:09 Interval history: Patient is alert. She feels okay. lying flat in bed she is weak. She does not have much of an appetite. ate just a few bitds of breakfas.t Exam Narrative: Exam Narrative: General: WD/WN AA female in NAD Heart: normal S1 and S2; no rub or gallop Lungs: decreased at bases Abdomen: soft, nontender, nondistended, positive bowel sounds Extremities: no cyanosis or clubbing; 1+edema Skin: no rash Or subcu nodules Objective Data Vital Signs Vital Signs: Vital Signs - 24 hr 04/07/20 22:00 04/08/20 00:00 04/08/20 00:10 Temperature 36.7 C Pulse Rate 67 54 L 58 L Respiratory Rate 20 19 Blood Pressure 151/68 H Pulse Oximetry 93 95 04/08/20 01:30 04/08/20 01:39 04/08/20 04:00 Temperature Pulse Rate 58 L 57 L 56 L Respiratory Rate 20 18 Blood Pressure Pulse Oximetry 04/08/20 05:37 04/08/20 08:00 04/08/20 09:10 Temperature 36.7 C Pulse Rate 65 65 60 Respiratory Rate 20 16 Blood Pressure 157/65 H Pulse Oximetry 96 04/08/20 09:20 04/08/20 09:23 04/08/20 12:00 Temperature Pulse Rate 65 59 L 59 L Respiratory Rate 16 Blood Pressure Pulse Oximetry 04/08/20 14:00 04/08/20 14:34 04/08/20 14:39 Temperature 36.6 C Pulse Rate 57 L 57 L 56 L Respiratory Rate 20 20 20 Bl
[2020-04-08] MEDS: FUROSEMIDE INJ 40 MG/4 ML VIAL 20 MG IV PUSH (23:24)
[2020-04-09] VITALS (42 sets, daily range): BP systolic 121–178; BP diastolic 50–99; PULSE 54–136; RESP 11–28; TEMP 36.1–36.8; O2SAT 89–100
[2020-04-09] MEDS: LEVALBUTEROL NEB 1.25 MG/3 ML 0.63 MG INHALATION ×7 (02:16→23:39)
[2020-04-09] MEDS: CENTRAL LINE FLUSH 10 ML IV PUSH ×3 (05:12→16:59)
[2020-04-09 05:37] LABS: Albumin Level 2.9 g/dL (3.5-5.1); Anion Gap 7 mmol/L (8-16); Blood Urea Nitrogen 73 mg/dL (7-17); Calcium 9.1 mg/dL (8.4-10.2); Carbon Dioxide 27 mmol/L (22-30); Chloride 109 mmol/L (98-107); Estimated CRCL calculation 15 ml/min; Estimated Glomerular Filt Rate 11; Glucose 191 mg/dL (65-105); Phosphorus 5.1 mg/dL (2.5-4.5); Potassium 4.5 mmol/L (3.4-5.0); Sodium 143 mmol/L (137-145)
[2020-04-09 05:39] LABS: INR 1.6; Prothrombin Time 19.3 Seconds (11.1-14.7)
[2020-04-09 05:41] LABS: Partial Thromboplastin Time 32.9 SECONDS (22.3-36.8)
--- NOTE | 2020-04-09 07:26 | WPDHPUPDATE1 ---
History and Physical Update Update Date/Time: 04/09/20 07:26 History and Physical has been reviewed, including an updated exam of the patient. There are significant changes in the patient's condition. patient spent several days in ICU asked her her rest. She has significantly improved in her cardiac status but still is being monitored for a rhythm is. She was on Xarelto but this has been held for now at least 36 hours. Patient also has gradually gone into further renal failure and after thorough discussion she has decided to proceed with the hemodialysis least for a while after discussing with Dr. Florian. Possible problems of bleeding or infection have been described to the patient. We will try to get her back on her Xarelto about 12 hours after her hemodialysis catheter placement. Risks, benefits, and alternatives of a tunneled dialysis catheter placement have been discussed and questions answered. Patient agrees to proceed with procedure.
[2020-04-09 08:07] LABS: Glucose Point of Care 194 (65-105)
[2020-04-09] MEDS: AMIODARONE HCL 200 MG TABLET 400 MG PO ×2 (08:35→16:58)
[2020-04-09] MEDS: METOPROLOL TARTRATE 50 MG TAB PO ×2 (08:37→21:18)
[2020-04-09] MEDS: BRIMONIDINE TARTRATE 0.2% OP SOLN 5 ML BTL 1 DROP EACH EYE ×2 (08:41→21:20)
[2020-04-09] MEDS: TIMOLOL MALEATE 0.5% OP SOLN 5 ML BOTTLE 1 DROP EACH EYE ×2 (08:44→21:20)
[2020-04-09] MEDS: SIMVASTATIN 20 MG TABLET PO (08:54)
[2020-04-09] MEDS: PANTOPRAZOLE 40 MG TABLET PO (08:55)
--- NOTE | 2020-04-09 09:28 | PCNFU ---
Nutrition Follow-Up Complete: Inadequate oral intake related to oral intubation as evidenced by NPO status. Goal: Patient to meet estimated nutritional needs. Patient is progressing towards goal. We will continue current goal. Pt current nutrition is NPO. Nutrition recommendation: DBCC/soft and bite sized, Level 6 Last recorded weight is 146 kg, 140.9 kg on admit. Bowel Motility:+BM reported 04/05 Labs Reviewed:Alb 2.9,BUN 73,GFR 11,Glu 191,Cr 4.7 Meds Noted:Lantus, Lopressor, Protonix Additional Notes: Patient NPO today for tunneled catheter. Patient had some nausea last night. Per speech therapy notes, patient can advance diet as tolerated. Spoke with nursing today and recommend DBCC/soft and bite sized, Level 6. Oral Intake has been good 75-100% of meals. Monitoring: weight, labs, meds, oral intake every 5 days.
[2020-04-09] MEDS: racEPINEPHrine 2.25% NEBU SOLN 0.5 ML VIAL.NEB INHALATION (10:36)
--- NOTE | 2020-04-09 10:52 | PCOTNOTE ---
Attempted OT treatment, per RN hold therapy for today due to patient not feeling well and going down for surgery soon, will follow and attempt tomorrow.
[2020-04-09 11:44] LABS: Glucose Point of Care 184 (65-105)
--- NOTE | 2020-04-09 12:25 | PC.NURSE ---
Pt wheezing within 2 hours after 717 Albuterol nebulizer with some upper airway stridor - Respiratory therapy recommended Racemic epi nebulizer. Pt HR increased to 110's - 130's. and went into A-fib. BP stable. Breathing improved. Dr Gambino aware. VS remain unchanged with A-fib.
--- NOTE | 2020-04-09 12:50 | PCPTNOTE ---
Patient was being taken down for a procedure when therapist arrived. Therefore, Physical Therapy was not able to be done at this time.
[2020-04-09] MEDS: METOPROLOL TARTRATE INJ 5 MG/5 ML VIAL IV PUSH ×2 (13:05→13:10)
--- NOTE | 2020-04-09 13:34 | SUR.PREOP ---
Patient given Lopressor per Dr Chavez approx 1310. Followed by Amiodarone 100mg iv at [address] Chavez. Patient receiving xopenex treatment and became unresponsive and grunting. Heart rate Afib dropped from 120 to 60, still Afib. Assisted patient to breathe and suctioned. Patient aroused and complains of claustrophobia with O2 mask. Surgery cancelled and patient will be transfered to ICU per current plans of Dr Lipscomb.
--- NOTE | 2020-04-09 13:45 | WPDANESPN ---
Anes - Prog Note Post-Op Date/Time: 04/09/20 13:45 Cardiovascular status: other (afib rvr) Respiratory status: other (dec bs bl wheezing) Mental status: baseline and other Vital Signs: Last Vital Signs Temp 36.8 C 04/09/20 13:03 Pulse 118 H 04/09/20 13:03 Resp 28 H 04/09/20 13:03 BP 154/91 H 04/09/20 13:03 Pulse Ox 99 04/09/20 13:03 Pain Score (VAS): 0 I/O: Intake & Output 04/08/20 04/09/20 04/09/20 23:59 07:59 15:59 Intake Total 50 Output Total 350 775 Balance -350 -725 Laboratory Tests 04/08/20 05:16 04/09/20 05:11 04/08/20 04/08/20 04/09/20 16:55 20:29 05:11 PT 19.3 H INR 1.6 APTT 32.9 Sodium Potassium Chloride Carbon Dioxide Anion Gap BUN Creatinine Estim Creat Clear Calc Estimated GFR Glucose POC Capillary Glucose 196 H 204 H Calcium Phosphorus Ferritin Albumin 04/09/20 04/09/20 04/09/20 05:11 05:11 08:05 PT INR APTT Sodium 143 Potassium 4.5 Chloride 109 H Carbon Dioxide 27 Anion Gap 7 L BUN 73 H Creatinine 4.70 H Estim Creat Clear Calc 15 Estimated GFR 11 L Glucose 191 H POC Capillary Glucose 194 H Calcium 9.1 Phosphorus 5.1 H Ferritin 254.00 Albumin 2.9 L 04/09/20 11:41 PT INR APTT Sodium Potassium Chloride Carbon Dioxide Anion Gap BUN Creatinine Estim Creat Clear Calc Estimated GFR Glucose POC Capillary Glucose 184 H Calcium Phosphorus Ferritin Albumin Post-procedural complaints: none Patient Feedback: Patient satisfied with anesthetic care. Other Findings: pt observed preop. afib with rvr. interactive active bl pulmonary wheezing. Dr. Hennessy advised of pts condition. hr control begun with 10mg of metoprolol. rate 110s. xopenex breathing treatment started after administering 100mg amiodarone. pt experienced brief episode of hr to 60s. respiratory decompensation that immediately improved with bag mask ventilation assistance. bp stable throughout. pt returned to baseline afib 110 [id number]. sats 100. events discussed with Drs. Hennessy and Yadira. Agreed transfer to ICU appropriate. no ventilatory assistance at this time.
--- NOTE | 2020-04-09 13:57 | PC.NURSE ---
1245 - Pt left floor to go to pre-op area for Dialysis catheter placement. Report given to PACU nurse.
--- NOTE | 2020-04-09 13:58 | WPDINTPN ---
Progress Note: A&P Assessment and Plan (1) Atrial fibrillation with rapid ventricular response: Code(s): I48.91 - Unspecified atrial fibrillation Status: Acute Assessment and Plan: Patient was in OR get her tunnel dialysis catheter when she went into AFib RVR with rates in the 130s, patient was given metoprolol and amiodarone IV, dropped her heart rate in the 60s briefly with respiratory compromise, dialysis catheter was not placed patient was transferred to the ICU for further management -currently Xarelto is on hold for dialysis catheter placement -discuss with Cardiology, will start heparin infusion -patient to remain on p.o. amiodarone, and metoprolol -cardiology is following her closely (2) Cardiac arrest: Code(s): I46.9 - Cardiac arrest, cause unspecified Status: Acute Assessment and Plan: Patient had a PEA arrest on 03/25/2020, she was released from [facility] for home and when she reached home she had a syncopal episode in snoring respirations with pulseless PEA arrest. ROSC within 3 minutes of CPR. -patient has been complaining of chest pain which is due to her CPR, complains of left rib pain CT scan of the chest did not show any aortic aneurysm -echocardiogram 03/31/2020 showed > 70%, grade 1 diastolic dysfunction, [id number] tricuspid regurg, severe pulmonary hypertension with RVSP of 68. No wall motion abnormalities was seen -appreciate cardiology following the patient (3) Diastolic congestive heart failure: Code(s): I50.30 - Unspecified diastolic (congestive) heart failure Status: Acute Assessment and Plan: Patient with diastolic heart failure, -holding of diuretics due to CKD (4) MARC (acute kidney injury): Code(s): N17.9 - Acute kidney failure, unspecified Status: Acute Assessment and Plan: Baseline creatinine 1.8-2.0 -patient with recent cardiac arrest, also diuretic therapy -continues to make urine creatinine and uremia worsening -nephrology following the patient and discussed with her regarding dialysis to which she agreed. Patient was in the OR today on 04/09/2020 for tunnel dialysis catheter when she went into AFib RVR, dialysis catheter was not placed, patient was sent to the ICU for closer monitoring (5) Acute respiratory failure: Code(s): J96.00 - Acute respiratory failure, unspecified whether with hypoxia or hypercapnia Status: Acute Assessment and Plan: Patient had some wheezing in the OR today when she went into AFib RVR, was given Xopenex nebulizer. As per anesthesiologist, patient had received racemic epinephrine for her wheezing which possibly put her into AFib RVR. -currently placed on on 2 L nasal cannula -patient has some wheezing will give Solu-Medrol, chest x-ray has been ordered, -continue Xopenex nebulizer and will start Pulmicort inhaler Acute respiratory failure on 03/25/2020 likely related to cardiac arrest, patient has been intubated on mechanical ventilation.- Extubated successfully on 03/31/2020 Additional Plan Discussed with patient updated with her condition and plan of care. Also discussed with Jh, he brother and POA - [phone]. Updated him regarding the episode of AFib RVR in the OR, he is aware she was getting a dialysis catheter placed today but that was not done due to her AFib RVR. I did tell him that she is in the ICU for close monitoring. I answered all questions a will keep him posted. Code status: Full code Critical care time spent: 38 minutes Discussed with cardiology Due to a high probability of clinically significant, life threatening deterioration, the patient required my highest level of preparedness to intervene emergently and I personally spent this critical care time directly and personally managing the patient. This critical care time included obtaining a history; examining the patient; pulse oximetry; ordering and review of studies; arranging urgent tr
--- NOTE | 2020-04-09 14:27 | PC.NURSE ---
This patient, Shaniqua Oakley, was received from [ pacu] on 04/09/20 at 1400. Patient/family oriented to unit policies and routines
[2020-04-09 14:52] LABS: Basophils Percent Auto 0.1 % (0.2-1.2); Eosinophils Absolute Auto 0.1 K/mm3 (0-0.3); Eosinophils Percent Auto 0.7 % (0-4.4); Hematocrit 32.6 % (37.0-47.0); Hemoglobin 10.5 g/dL (12.0-15.0); Immature Granulocyte Absolute 0.33 K/mm3 (0.00-0.031); Immature Granulocyte Percent A 2.1 % (0-0.5); Lymphocytes Absolute Auto 0.74 K/mm3 (0.9-3.2); Lymphocytes Percent Auto 4.7 % (18.3-44.2); Mean Corpuscular HGB Conc 32.2 g/dl (32-36); Mean Corpuscular Volume 77.6 fl (80-100); Mean Platelet Volume 10.6 fl (7.4-10.4); Monocytes Absolute Auto 0.4 K/mm3 (0.1-0.6); Monocytes Percent Auto 2.7 % (2.6-8.5); Neutrophils Absolute Auto 14.1 K/mm3 (1.3-6.7); Neutrophils Percent Auto 89.7 % (45.5-73.1); Platelet Count Result 199 k/mm3 (150-375); Red Cell Distribution Width 14.9 % (11.5-14.5); White Blood Count 15.7 K/mm3 (4.5-10.0)
[2020-04-09] MEDS: methylPREDNISolone SOD SUCC 125 MG VIAL IV PUSH (14:52)
[2020-04-09 15:04] LABS: Alanine Aminotransferase 16 U/L (4-35); Alkaline Phosphatase 78 U/L (38-126); Anion Gap 7 mmol/L (8-16); Anisocytosis 1+ (NORMAL); Aspartate Amino Transferase 19 U/L (14-36); Bilirubin,Total 1.3 mg/dL (0.2-1.3); Blood Urea Nitrogen 73 mg/dL (7-17); Calcium 9.3 mg/dL (8.4-10.2); Carbon Dioxide 27 mmol/L (22-30); Chloride 109 mmol/L (98-107); Estimated CRCL calculation 16 ml/min; Estimated Glomerular Filt Rate 12; Glucose 191 mg/dL (65-105); Lactic Acid Reflex 1.1 mmol/L (0.7-2.1); Magnesium 2.1 mg/dL (1.6-2.3); Phosphorus 5.2 mg/dL (2.5-4.5); Platelet Estimate Adequate (Adequate); Potassium 4.4 mmol/L (3.4-5.0); Sodium 143 mmol/L (137-145)
[2020-04-09 15:04] LABS: Alveolar/Arterial O2 Gradient 56.3 mmHg; Base Excess ABG -4.4 mEq/l (+/-2.0); Fractional Inspired Oxygen 28 %; HCO3 ABG 21.5 mEq/l (22.0-26.0); Oxygen Content ABG 15.7 %vol (16.0-22.0); Oxygen Saturation ABG 96.5 % (95.0-100.0); Oxyhemoglobin 95.5 % THb (90.0-100.0); PO2 ABG 92.6 mmHg (80.0-100.0); PO2 FiO2 Ratio Arterial Blood 3.31 %; Total Hemoglobin 11.6 g/dL (12.0-18.0); pH ABG 7.317 (7.350-7.450)
[2020-04-09 15:05] LABS: Ovalocytes 1+ (NORMAL); Target Cells 1+ (NORMAL)
[2020-04-09 15:05] LABS: Device NASAL CANNULA; Modified Allen's Test Pass; Site Drawn RIGHT RADIAL
[2020-04-09 15:15] LABS: INR 1.4; Prothrombin Time 17.3 Seconds (11.1-14.7); Troponin I 0.017 ng/mL (0.000-0.034)
[2020-04-09] MEDS: ONDANSETRON INJ 4 MG/2 ML VIAL IV PUSH (15:17)
[2020-04-09 15:18] LABS: Partial Thromboplastin Time 29.7 SECONDS (22.3-36.8)
--- NOTE | 2020-04-09 15:20 | PM.PNCARD ---
Progress Note: A&P Assessment and Plan (1) Afib: Code(s): I48.91 - Unspecified atrial fibrillation Status: Acute Assessment and Plan: Maintaining sinus rhythm overnight, heart rate stable in the 60s. BP stable. Anticoagulation held last night in anticipation for hemodialysis catheter placement today. Given IV 150 mg amiodarone bolus for recurrence of AFib with RVR 04/06/20/ converting to sinus rhythm yesterday maintaining sinus bradycardia., continue amiodarone 400 mg p.o. b.i.d. for another 24 hours. Adjustment in metoprolol depending upon response to above therapy. Patient is asymptomatic at this time. Pattern is concerning for degree of tachycardia bradycardia syndrome. If she continues to have recurrence of AFib with RVR despite medical therapy as well as sinus bradycardia particularly if that necessitates down titration of rate-controlling medications it is possible she may require pacemaker implantation. She does not meet indications presently but will continue to monitor closely in that regard. (2) Diastolic congestive heart failure: Code(s): I50.30 - Unspecified diastolic (congestive) heart failure Status: Acute Assessment and Plan: Renal function continues to deteriorate. Fair response to Lasix. Plan for initiation of hemodialysis after catheter placement today. Patient clearly more wheezy today especially upper airways with reported initial improvement with bronchodilator/nebulizer therapy. Preserved EF 70% Difficult to assess volume status Given body habitus. Patient has significant edema although likely component of 3rd spacing with concern for intravascular volume depletion with worsening renal failure with prerenal component. - Lasix has been held for several days, IV fluid total 750 given yesterday yet renal function continues to deteriorate. -04/06/2020 chest x-ray personally reviewed analyzed with bilateral small pleural effusions and some atelectasis and consolidation can't exclude pneumonia. -2.3, stable. Patient very complicated with multiple comorbidities. (3) CKD (chronic kidney disease): Qualifiers: Chronic kidney disease stage: unspecified stage Qualified Code(s): N18.9 - Chronic kidney disease, unspecified Code(s): N18.9 - Chronic kidney disease, unspecified Status: Chronic Assessment and Plan: renal function continues to deteriorate. Electrolytes stable the patient more fatigued, slightly confused, more short of breath and feeling less well in general. Concern for degree of uremia, however, plan for hemodialysis per Nephrology. Will observe response therapy. Discussed this in great detail with regards to indications, expectations, potential benefits as well as risks. Patient understands and wishes to proceed (4) H/O: HTN (hypertension): Code(s): Z86.79 - Personal history of other diseases of the circulatory system Status: Acute Assessment and Plan: Tends to run a bit high, will continue to follow. (5) Pulmonary hypertension: Code(s): I27.20 - Pulmonary hypertension, unspecified Status: Acute Assessment and Plan: severe, RVSP 68 mm Hg 03/31/2020. [id number] tricuspid regurgitation mild mitral regurgitation. Pulmonary hypertension most likely secondary to long-standing untreated obstructive sleep apnea, atrial fibrillation not clearly due to valvular pathology. (6) KIERRA (obstructive sleep apnea): Code(s): G47.33 - Obstructive sleep apnea (adult) (pediatric) Status: Acute Assessment and Plan: Longstanding noncompliance with treatment. Tolerating BiPAP this hospitalization. Strongly encourage remain compliant in this regard. Patient agrees. Explained the dangers with noncompliance moving forward including respiratory failure, CHF, card
[2020-04-09] MEDS: HEPARIN SODIUM 5,000 UNITS/ML VIAL 7500 UNITS IV PUSH (15:33)
[2020-04-09] MEDS: HEPARIN SOD/D5W 100 UNITS/ML 25,000 UNITS/250 ML BAG 15 UNITS IV CONT (15:34)
--- NOTE | 2020-04-09 16:00 | PM.IMPN ---
Progress Note: A&P Assessment and Plan (1) Atrial fibrillation with rapid ventricular response: Code(s): I48.91 - Unspecified atrial fibrillation Status: Acute Assessment and Plan: Patient had episode of A. fib with RVR when i pre op to get her dialysis catheter Given Metoprolol and Amiodarone in pre op Which made her respiratory compromised requiring bag valve mask Patient received breathing treatments which could have trigger A.fib Sotalol was discontinued due to adverse event around discharge time when patient went home had PEA cardiac arrest with ROSC and was brought to the hospital Patient is now in ICU Appreciate Cardiology note (2) Acute respiratory failure: Code(s): J96.00 - Acute respiratory failure, unspecified whether with hypoxia or hypercapnia Status: Acute Assessment and Plan: Patient with long standing history of not using her CPAP Multiple comorbidities Supportive care NIPPV/NC as needed Appreciate Int.CC note (3) MARC (acute kidney injury): Code(s): N17.9 - Acute kidney failure, unspecified Status: Acute Assessment and Plan: In need for HD however could not get her catheter in place due to episode of A. fib with RVR in pre op Catheter implantation was aborted Making urine Continue to monitor I/O Daily BMP Nephro following (4) Diastolic congestive heart failure: Code(s): I50.30 - Unspecified diastolic (congestive) heart failure Status: Acute Assessment and Plan: Grade I diastolic dysfunction On Metoprolol Lasix has been stopped (5) QT prolongation: Code(s): R94.31 - Abnormal electrocardiogram [ECG] [EKG] Status: Acute Assessment and Plan: Continue to monitor Avoid drugs with potential for QT prolongation Continue to monitor (6) Cardiac arrest: Code(s): I46.9 - Cardiac arrest, cause unspecified Status: Acute Assessment and Plan: PEA according to records ROSC within 3 minutes Resuscitation was on the field Cardiac arrest at home when walking out of the ambulance Sotalol had been discontinued since (7) Syncope: Code(s): R55 - Syncope and collapse Status: Resolved Assessment and Plan: Cardiac in origin (8) Body mass index (BMI) of 50-59.9 in adult: Onset Date: 11/27/18 Code(s): Z68.43 - Body mass index [BMI] 50.0-59.9, adult Status: Acute Assessment and Plan: Lifestyle and diet modifications Carb consistent diet (9) KIERRA (obstructive sleep apnea): Code(s): G47.33 - Obstructive sleep apnea (adult) (pediatric) Status: Acute Assessment and Plan: CPAP at night time (10) Restrictive lung disease: Code(s): J98.4 - Other disorders of lung Status: Acute Assessment and Plan: Unchanged. (11) Pulmonary hypertension: Code(s): I27.20 - Pulmonary hypertension, unspecified Status: Acute Assessment and Plan: Now on supplemental O2 CPAP at night time Subjective Date/time seen: 04/09/20 16:00 Feels tired was restless and unable to sleep last night. Review of Systems Review of Systems: Narrative: States that feels tired, sob. Constitutional: Constitutional: Reports difficulty sleeping, Reports fatigue and Reports lethargy Eyes: Comments: no vision changes. Cardiovascular: Comments: no chest pain. Respiratory: Comments: wheezing. Gastrointestinal: Comments: no n/v/abdominal pain. Musculoskeletal: Comments: pedal edema. Integumentary/Breasts: Comments: no rashes Neurologic: Comments: no sensory motor deficit. Exam Narrative: Exam Narrative: Ill looking, in bed. Const: General: no acute distress, alert, awake and ill appearing Nutritional Appearance: other (Morbid obesity) Orientation/consciousness: patient oriented x3 HENMT: Head: normocephalic Ears: hearing grossly normal bilaterally General nose exam: Normal external nose present Face and sinus: normal facial e
--- NOTE | 2020-04-09 16:45 | PM.PNGS ---
Progress Note: A&P Assessment and Plan (1) Chronic renal failure: Qualifiers: Chronic kidney disease stage: stage 3 (moderate) Chronic kidney disease stage 3 subtype: unspecified whether 3a or 3b Qualified Code(s): N18.30 - Chronic kidney disease, stage 3 unspecified Code(s): N18.9 - Chronic kidney disease, unspecified Status: Acute Assessment and Plan: For this reason and because her digital sales executive Dr. Florian did not feel her kidney function was improving he was planning to have her go on dialysis. We were therefore planning to place a tunneled dialysis catheter today. However, the patient's condition seemed to deteriorate through the late morning and early afternoon therefore we canceled the surgery. I did discuss this with Dr. Florian. He will discuss with Dr. Branden painting and they may place a percutaneous dialysis catheter over a wire and exchanged for her current right IJ catheter. This would allow temporary dialysis to see if we can get the patient in better shape for rescheduling the tunnel dialysis catheter perhaps next week. Will await [facility] I was able to get a hold of her brother, Rj who is her next of kin. I informed him about the events of the day and the plan as outlined above to perhaps place a percutaneous temporary dialysis catheter over a wire and lower to have some dialysis that way over the next few days. (2) Diastolic congestive heart failure: Code(s): I50.30 - Unspecified diastolic (congestive) heart failure Status: Acute (3) Atrial fibrillation with rapid ventricular response: Onset Date: ~03/2020 Code(s): I48.91 - Unspecified atrial fibrillation Status: Acute Assessment and Plan: Patient on heparin drip now in ICU bed 3. Plan is per Dr. Florian, Dr. Branden painting roll or tape edge machine operator, and Dr. beth reid cardiology. (4) Body mass index (BMI) of 50-59.9 in adult: Onset Date: 11/27/18 Code(s): Z68.43 - Body mass index [BMI] 50.0-59.9, adult Status: Acute (5) Essential hypertension: Onset Date: Unknown Code(s): I10 - Essential (primary) hypertension Status: Chronic Assessment and Plan: Resume usual medications for this. (6) Diabetes mellitus: Onset Date: Unknown Qualifiers: Diabetes mellitus type: type 2 Diabetes mellitus fci insulin use: with terminal gauger supervisor use Diabetes mellitus complication status: with kidney complications Diabetes mellitus complication detail: with chronic kidney disease Chronic kidney disease stage: stage 3 (moderate) Chronic kidney disease stage 3 subtype: unspecified whether 3a or 3b Qualified Code(s): E11.22 - Type 2 diabetes mellitus with diabetic chronic kidney disease; N18.30 - Chronic kidney disease, stage 3 unspecified; Z79.4 - MCFP (current) use of insulin Code(s): E11.9 - Type 2 diabetes mellitus without complications Status: Chronic Assessment and Plan: As per hospitalist and roll or tape edge machine operator (7) Pulmonary hypertension: Onset Date: Unknown Code(s): I27.20 - Pulmonary hypertension, unspecified Status: Acute Assessment and Plan: most likely related to obesity and other comorbidities. Has a central line for IV access and monitoring. Additional Plan Hold on any placement of tunneled dialysis catheter until further notice and patient improvement. Discussed with Dr. Florian he will let me know when we should consider again trying to place the tunneled dialysis catheter. Subjective Subjective Date/Time Seen: 04/09/20 16:45 Late entry for 2:00 p.m. : patient was brought to the preop area for placement of a tunneled dialysis catheter today. Her Xarelto has been all on hold now for approximately 45 hours. While in the preop area she went into AFib with RVR. Patient was in the Pre-op area get her tunnelled dialysis catheter when she went into AFib RVR with rates in the 13
[2020-04-09 16:58] LABS: Glucose Point of Care 189 (65-105)
--- NOTE | 2020-04-09 17:14 | PM.PNNEP ---
Progress Note: A&P Assessment and Plan (1) MARC (acute kidney injury): Code(s): N17.9 - Acute kidney failure, unspecified Status: Acute Assessment and Plan: Renal function is still poor. The patient is mildly volume overloaded, although only on 2L of oxygen. Patient could not get a PermCath. Will let Cardiology stabilize the patient rhythm antonio and then may try another catheter tomorrow whether temporary or tunneled, depending on the situation. (2) CKD (chronic kidney disease): Qualifiers: Chronic kidney disease stage: unspecified stage Qualified Code(s): N18.9 - Chronic kidney disease, unspecified Code(s): N18.9 - Chronic kidney disease, unspecified Status: Chronic Assessment and Plan: baseline creatinine runs ~ 1.8 - 2.0mg/dl likely due to hypertension and diabetes (3) Cardiac arrest: Code(s): I46.9 - Cardiac arrest, cause unspecified Status: Acute Assessment and Plan: Cardiology following (4) Acute respiratory failure: Code(s): J96.00 - Acute respiratory failure, unspecified whether with hypoxia or hypercapnia Status: Acute Assessment and Plan: Chest x-ray shows fluid but only on 2L of oxygen (5) Essential hypertension: Onset Date: Unknown Code(s): I10 - Essential (primary) hypertension Status: Chronic Assessment and Plan: systolic 120 to 160. this may improve with fluid removal. (6) Diabetes mellitus: Onset Date: Unknown Qualifiers: Diabetes mellitus type: type 2 Diabetes mellitus senior living insulin use: with senior living use Diabetes mellitus complication status: with kidney complications Diabetes mellitus complication detail: with chronic kidney disease Chronic kidney disease stage: stage 3 (moderate) Chronic kidney disease stage 3 subtype: unspecified whether 3a or 3b Qualified Code(s): E11.22 - Type 2 diabetes mellitus with diabetic chronic kidney disease; N18.30 - Chronic kidney disease, stage 3 unspecified; Z79.4 - termite control technician (current) use of insulin Code(s): E11.9 - Type 2 diabetes mellitus without complications Status: Chronic Assessment and Plan: follow accuchecks on SSI Subjective Date/time seen: 04/09/20 17:14 Interval history: Patient is sleepy today. She went down for the PermCath however she developed atrial tachycardia and so was moved to the ICU. The catheter was not placed. She is currently on IV heparin and is going to start amiodarone soon. Exam Narrative: Exam Narrative: General: WD/WN AA female in NAD Heart: normal S1 and S2; no rub or gallop Lungs: decreased at bases Abdomen: soft, nontender, nondistended, positive bowel sounds Extremities: no cyanosis or clubbing; 1+edema Skin: no rash or subcu nodules Objective Data Vital Signs Vital Signs: Vital Signs - 24 hr 04/08/20 20:00 04/08/20 20:30 04/08/20 21:02 Temperature Pulse Rate 67 65 61 Respiratory Rate 16 Blood Pressure Pulse Oximetry 04/08/20 22:55 04/08/20 23:05 04/09/20 00:00 Temperature 36.7 C Pulse Rate 64 56 L Respiratory Rate 22 H Blood Pressure 151/56 H Pulse Oximetry 85 L 97 95 04/09/20 00:45 04/09/20 01:39 04/09/20 02:00 Temperature Pulse Rate Respiratory Rate Blood Pressure Pulse Oximetry 92 99 93 04/09/20 02:17 04/09/20 02:23 04/09/20 02:27 Temperature Pulse Rate 62 64 58 L Respiratory Rate 18 18 Blood Pressure Pulse Oximetry 94 04/09/20 02:50 04/09/20 03:03 04/09/20 04:00 Temperature Pulse Rate 59 L Respiratory Rate Blood Pressure Pulse Oximetry 89 L 100 04/09/20 05:37 04/09/20 07:19 04/09/20 07:20 Temperature 36.4 C Pulse Rate 66 68 68 Respiratory Rate 19 18 Blood Pressure 143/63 H Pulse Oximetry 93 93 04/09/20 07:25 04/09/20 08:00 04/09/20 08:15 Temperature 36.1 C L Pulse Rate 67 68 67 Respiratory Rate 18 21 H 18 Blood
--- NOTE | 2020-04-09 20:35 | ECG_ITS ---
Measurements Intervals Dawson Rate: 65 P: 48 DC: 151 QRS: 28 QRSD: 90 T: 55 QT: 412 QTc: 430 Interpretive Statements SINUS RHYTHM NONSPECIFIC T-WAVE ABNORMALITY- HIGH LATERAL LEADS BASELINE ARTIFACT- I, III, AVR, AVL, V4-V6 BORDERLINE ECG Electronically Signed On 04-10-2020 7:15:35 SUPERVISOR MAJOR APPLIANCE ASSEMBLY by Garrett Bucio D.O.
[2020-04-09] MEDS: INSULIN GLARGINE (*BKC) 100 UNITS/ML 21 UNITS SUB-Q (21:20)
[2020-04-09 21:45] LABS: Glucose Point of Care 293 (65-105)
[2020-04-09 22:32] LABS: Partial Thromboplastin Time > 200.0 SECONDS (22.3-36.8)
[2020-04-10] VITALS (22 sets, daily range): BP systolic 132–152; BP diastolic 45–75; PULSE 54–101; RESP 17–21; TEMP 36.2–36.8; O2SAT 95–100
[2020-04-10] MEDS: CENTRAL LINE FLUSH 10 ML IV PUSH ×5 (01:43→20:48)
[2020-04-10] MEDS: LEVALBUTEROL NEB 1.25 MG/3 ML 0.63 MG INHALATION ×6 (03:55→23:09)
[2020-04-10 05:13] LABS: Hematocrit 32.5 % (37.0-47.0); Hemoglobin 10.4 g/dL (12.0-15.0); Immature Granulocyte Absolute 0.04 K/mm3 (0.00-0.031); Immature Granulocyte Percent A 0.6 % (0-0.5); Lymphocytes Absolute Auto 0.46 K/mm3 (0.9-3.2); Lymphocytes Percent Auto 6.5 % (18.3-44.2); Mean Corpuscular Hemoglobin 24.9 pg (26-34); Mean Corpuscular Volume 77.8 fl (80-100); Mean Platelet Volume 11.8 fl (7.4-10.4); Monocytes Absolute Auto 0.1 K/mm3 (0.1-0.6); Neutrophils Absolute Auto 6.5 K/mm3 (1.3-6.7); Neutrophils Percent Auto 91.9 % (45.5-73.1); Platelet Count Result 209 k/mm3 (150-375); Red Blood Count 4.18 M/mm3 (4.2-5.4); Red Cell Distribution Width 14.9 % (11.5-14.5); White Blood Count 7.1 K/mm3 (4.5-10.0)
[2020-04-10 05:35] LABS: Chloride 106 mmol/L (98-107)
[2020-04-10 05:45] LABS: INR 1.4
[2020-04-10 05:56] LABS: Anion Gap 8 mmol/L (8-16); Blood Urea Nitrogen 72 mg/dL (7-17); Calcium 9.1 mg/dL (8.4-10.2); Carbon Dioxide 24 mmol/L (22-30); Estimated CRCL calculation 16 ml/min; Estimated Glomerular Filt Rate 11; Glucose 308 mg/dL (65-105); Magnesium 2.2 mg/dL (1.6-2.3); Phosphorus 6.4 mg/dL (2.5-4.5); Sodium 138 mmol/L (137-145)
[2020-04-10 08:12] LABS: Glucose Point of Care 312 (65-105)
[2020-04-10] MEDS: INSULIN ASPART (*BKC) 100 UNITS/ML SUB-Q ×3 (08:14→17:24)
[2020-04-10] MEDS: AMIODARONE HCL 200 MG TABLET 400 MG PO ×2 (08:16→17:25)
[2020-04-10] MEDS: TIMOLOL MALEATE 0.5% OP SOLN 5 ML BOTTLE 1 DROP EACH EYE ×2 (08:22→20:47)
[2020-04-10] MEDS: BRIMONIDINE TARTRATE 0.2% OP SOLN 5 ML BTL 1 DROP EACH EYE ×2 (08:22→20:48)
[2020-04-10] MEDS: SIMVASTATIN 20 MG TABLET PO (08:23)
[2020-04-10] MEDS: METOPROLOL TARTRATE 50 MG TAB PO ×2 (08:23→20:48)
[2020-04-10] MEDS: PANTOPRAZOLE 40 MG TABLET PO (08:24)
--- NOTE | 2020-04-10 08:32 | PCOTNOTE ---
Per RN patient is ok to continue seeing for skilled OT, re-assess is not necessary at this time.
--- NOTE | 2020-04-10 10:06 | PC.NURSE ---
This patient, Shaniqua Oakley, was transferred to room 244 on 04/10/20 at 1006. Personal belongings sent with patient. Report given to TARSHA Crane. Appropriate documentation sent with patient.
[2020-04-10] MEDS: HEPARIN SOD/D5W 100 UNITS/ML 25,000 UNITS/250 ML BAG 10 UNITS IV CONT (10:56)
[2020-04-10 11:08] LABS: Partial Thromboplastin Time 84.5 SECONDS (22.3-36.8)
--- NOTE | 2020-04-10 11:15 | PM.PNNEP ---
Progress Note: A&P Assessment and Plan (1) MARC (acute kidney injury): Code(s): N17.9 - Acute kidney failure, unspecified Status: Acute Assessment and Plan: Renal function is still poor. GFR is stable. Will get a PermCath done tomorrow. I talked with Dr. Hennessy. Will initiate dialysis tomorrow. (2) CKD (chronic kidney disease): Qualifiers: Chronic kidney disease stage: unspecified stage Qualified Code(s): N18.9 - Chronic kidney disease, unspecified Code(s): N18.9 - Chronic kidney disease, unspecified Status: Chronic Assessment and Plan: baseline creatinine runs ~ 1.8 - 2.0mg/dl likely due to hypertension and diabetes (3) Cardiac arrest: Code(s): I46.9 - Cardiac arrest, cause unspecified Status: Acute Assessment and Plan: Cardiology following Rhythm okay overnight. (4) Acute respiratory failure: Code(s): J96.00 - Acute respiratory failure, unspecified whether with hypoxia or hypercapnia Status: Acute Assessment and Plan: Chest x-ray shows fluid but only on 2L of oxygen (5) Essential hypertension: Onset Date: Unknown Code(s): I10 - Essential (primary) hypertension Status: Chronic Assessment and Plan: systolic 130-150. this may improve with fluid removal. (6) Diabetes mellitus: Onset Date: Unknown Qualifiers: Diabetes mellitus type: type 2 Diabetes mellitus fdc insulin use: with fdc use Diabetes mellitus complication status: with kidney complications Diabetes mellitus complication detail: with chronic kidney disease Chronic kidney disease stage: stage 3 (moderate) Chronic kidney disease stage 3 subtype: unspecified whether 3a or 3b Qualified Code(s): E11.22 - Type 2 diabetes mellitus with diabetic chronic kidney disease; N18.30 - Chronic kidney disease, stage 3 unspecified; Z79.4 - intermodal customer service (current) use of insulin Code(s): E11.9 - Type 2 diabetes mellitus without complications Status: Chronic Assessment and Plan: follow accuchecks on SSI Subjective Date/time seen: 04/10/20 11:15 Interval history: Patient is Feeling better today. She slept well. She is currently on IV heparin Exam Narrative: Exam Narrative: General: WD/WN AA female in NAD Heart: normal S1 and S2; no rub or gallop Lungs: decreased at bases Abdomen: soft, nontender, nondistended, positive bowel sounds Extremities: no cyanosis or clubbing; 1+edema Skin: no rash or subcu nodules Objective Data Vital Signs Vital Signs: Vital Signs - 24 hr 04/09/20 12:00 04/09/20 13:03 04/09/20 13:30 Temperature 36.8 C Pulse Rate 129 H 118 H 112 H Respiratory Rate 19 28 H 18 Blood Pressure 121/78 154/91 H Pulse Oximetry 100 99 04/09/20 14:00 04/09/20 16:00 04/09/20 16:24 Temperature 36.7 C 36.6 C Pulse Rate 109 H 111 H 118 H Respiratory Rate 20 19 21 H Blood Pressure 127/61 156/96 H Pulse Oximetry 98 97 04/09/20 16:30 04/09/20 16:46 04/09/20 16:58 Temperature Pulse Rate 117 H 103 H 117 H Respiratory Rate 18 Blood Pressure Pulse Oximetry 98 04/09/20 17:00 04/09/20 18:00 04/09/20 20:00 Temperature 36.7 C 36.6 C Pulse Rate 119 H 114 H 62 Respiratory Rate 22 H 19 18 Blood Pressure 142/92 H 153/89 H Pulse Oximetry 97 98 04/09/20 20:01 04/09/20 20:10 04/09/20 21:18 Temperature Pulse Rate 128 H 119 H 62 Respiratory Rate 18 Blood Pressure Pulse Oximetry 98 04/09/20 22:00 04/09/20 23:39 04/09/20 23:47 Temperature Pulse Rate 56 L 54 L 55 L Respiratory Rate 17 20 20 Blood Pressure 134/50 L Pulse Oximetry 96 04/10/20 00:00 04/10/20 02:00 04/10/20 03:55 Temperature 36.8 C Pulse Rate 54 L 54 L 56 L Respiratory Rate 18 20 20 Blood Pressure 137/49 L 132/45 L Pulse Oximetry 100 99 04/10/20 04:00 04/10/20 06:00 04/10/20 08:00 Temperature 36.4 C 36.3 C L 36.7 C Puls
--- NOTE | 2020-04-10 11:28 | WPDINTPN ---
Progress Note: A&P Assessment and Plan (1) Atrial fibrillation with rapid ventricular response: Code(s): I48.91 - Unspecified atrial fibrillation Status: Acute Assessment and Plan: Patient was in OR get her tunnel dialysis catheter when she went into AFib RVR with rates in the 130s, patient was given metoprolol and amiodarone IV, dropped her heart rate in the 60s briefly with respiratory compromise, dialysis catheter was not placed patient was transferred to the ICU for further management -currently Xarelto is on hold for dialysis catheter placement -continue heparin infusion -patient to remain on p.o. amiodarone, and metoprolol -patient converted to sinus rhythm, rate control overnight. Hemodynamically stable (2) Cardiac arrest: Code(s): I46.9 - Cardiac arrest, cause unspecified Status: Acute Assessment and Plan: Patient had a PEA arrest on 03/25/2020, she was released from [facility] for home and when she reached home she had a syncopal episode in snoring respirations with pulseless PEA arrest. ROSC within 3 minutes of CPR. -patient has been complaining of chest pain which is due to her CPR, complains of left rib pain CT scan of the chest did not show any aortic aneurysm -echocardiogram 03/31/2020 showed > 70%, grade 1 diastolic dysfunction, [id number] tricuspid regurg, severe pulmonary hypertension with RVSP of 68. No wall motion abnormalities was seen -appreciate cardiology following the patient (3) Diastolic congestive heart failure: Code(s): I50.30 - Unspecified diastolic (congestive) heart failure Status: Acute Assessment and Plan: Patient with diastolic heart failure, -holding of diuretics due to CKD (4) MARC (acute kidney injury): Code(s): N17.9 - Acute kidney failure, unspecified Status: Acute Assessment and Plan: Baseline creatinine 1.8-2.0 -patient with recent cardiac arrest, also diuretic therapy -continues to make urine creatinine and uremia worsening -nephrology following the patient and discussed with her regarding dialysis to which she agreed. Patient was in the OR today on 04/09/2020 for tunnel dialysis catheter when she went into AFib RVR, dialysis catheter was not placed, patient was sent to the ICU for closer monitoring -nephrology to planned with surgery regarding tunneled dialysis catheter (5) Acute respiratory failure: Code(s): J96.00 - Acute respiratory failure, unspecified whether with hypoxia or hypercapnia Status: Acute Assessment and Plan: Patient had some wheezing in the OR today when she went into AFib RVR, was given Xopenex nebulizer. As per anesthesiologist, patient had received racemic epinephrine for her wheezing which possibly put her into AFib RVR. -currently placed on on 2 L nasal cannula -patient has some wheezing will give Solu-Medrol, -chest x-ray and ABGs reviewed -continue Xopenex nebulizer and Pulmicort inhaler Acute respiratory failure on 03/25/2020 likely related to cardiac arrest, patient has been intubated on mechanical ventilation.- Extubated successfully on 03/31/2020 Additional Plan Discussed with patient updated with her condition and plan of care. Also discussed with Jh, he brother and POA - [phone]. Updated him regarding the episode of AFib RVR in the OR, he is aware she was getting a dialysis catheter placed today but that was not done due to her AFib RVR. I did tell him that she is in the ICU for close monitoring. I answered all questions Code status: Full code Critical care time spent: 31 minutes Due to a high probability of clinically significant, life threatening deterioration, the patient required my highest level of preparedness to intervene emergently and I personally spent this critical care time directly and personally managing the patient. This critical care time included obtaining a history; examining the patient; pulse oximetry; ordering and r
[2020-04-10 12:05] LABS: Glucose Point of Care 321 (65-105)
--- NOTE | 2020-04-10 13:30 | PC.NURSE ---
This patient, Shaniqua Oakley, was received from ICU on 04/10/20 at 1330 Report received from January. Pt arrived on Heparin gtt 10ml/hr verified by Xiao Osorio RN. Patient/family oriented to unit policies and routines
[2020-04-10] MEDS: ACETAMINOPHEN 325 MG TABLET 650 MG PO (14:40)
--- NOTE | 2020-04-10 15:34 | PM.PNCARD ---
Progress Note: A&P Assessment and Plan (1) Afib: Code(s): I48.91 - Unspecified atrial fibrillation Status: Acute Assessment and Plan: Currently maintaining sinus rhythm. She has had paroxysm of AFib with RVR with bradycardia upon conversion sinus rhythm. Difficult balance as persistent AFib with RVR detrimental as is symptomatic bradycardia. She is tolerating her current regimen but she is somewhat tenuous in this regard and as such we should continue telemetry to observe response upon initiation of hemodialysis. When systemic anticoagulation resumed I would change Xarelto to Eliquis 2.5 mg b.i.d. given initiation of hemodialysis. She is currently on heparin infusion in anticipation for PermaCath. Her Pattern is concerning for degree of tachycardia bradycardia syndrome. If she continues to have recurrence of AFib with RVR despite medical therapy as well as sinus bradycardia particularly if that necessitates down titration of rate-controlling medications it is possible she may require pacemaker implantation. She does not meet indications presently but will continue to monitor closely in that regard. (2) Diastolic congestive heart failure: Code(s): I50.30 - Unspecified diastolic (congestive) heart failure Status: Acute Assessment and Plan: Renal function continues to deteriorate but she is still making a fair amount of urine. Urine appears cloudy, patient complains of dysuria/itching. -send urinalysis and microscopy. Preserved EF 70% by Echo (3) CKD (chronic kidney disease): Qualifiers: Chronic kidney disease stage: unspecified stage Qualified Code(s): N18.9 - Chronic kidney disease, unspecified Code(s): N18.9 - Chronic kidney disease, unspecified Status: Chronic Assessment and Plan: (4) H/O: HTN (hypertension): Code(s): Z86.79 - Personal history of other diseases of the circulatory system Status: Acute Assessment and Plan: Tends to run a bit high, will continue to follow. (5) Pulmonary hypertension: Onset Date: Unknown Code(s): I27.20 - Pulmonary hypertension, unspecified Status: Acute Assessment and Plan: severe, RVSP 68 mm Hg 03/31/2020. [id number] tricuspid regurgitation mild mitral regurgitation. Pulmonary hypertension most likely secondary to long-standing untreated obstructive sleep apnea, atrial fibrillation not clearly due to valvular pathology. (6) KIERRA (obstructive sleep apnea): Code(s): G47.33 - Obstructive sleep apnea (adult) (pediatric) Status: Acute Assessment and Plan: Longstanding noncompliance with treatment. Tolerating BiPAP this hospitalization. Strongly encourage remain compliant in this regard. Patient agrees. Explained the dangers with noncompliance moving forward including respiratory failure, CHF, cardiac arrest, uncontrolled hypertension. (7) Cardiac arrest: Code(s): I46.9 - Cardiac arrest, cause unspecified Status: Acute Assessment and Plan: no acute issues at this time. sotalol discontinued at admission. No recurrence. Very complicated clinical picture. Patient suffered a cardiac arrest, apparently was asystolic then had a PEA arrest with brief and successful resuscitation. Etiology is uncertain. PE is unlikely if the patient has been taking her Xarelto. No evidence of ventricular arrhythmias. No evidence of an acute ischemic event/ACS by EKG; she does have a mildly elevated troponin but that would be expected after an arrest. No evidence of significant bradycardia on last admission or this admission. Her neurologic status looks good so far. She is hemodynamically stable, not requiring pressors. (8) QT prolongation: Code(s): R94.31 - Abnormal electrocard
[2020-04-10 17:08] LABS: Glucose Point of Care 352 (65-105)
--- NOTE | 2020-04-10 17:08 | PM.IMPN ---
Progress Note: A&P Assessment and Plan (1) Atrial fibrillation with rapid ventricular response: Code(s): I48.91 - Unspecified atrial fibrillation Status: Acute Assessment and Plan: On sinus rhythm currently Follow Cardiology recs On Telemetry bed (2) Pulmonary hypertension: Onset Date: Unknown Code(s): I27.20 - Pulmonary hypertension, unspecified Status: Acute Assessment and Plan: On supplemental O2. CPAP at night time. (3) QT prolongation: Code(s): R94.31 - Abnormal electrocardiogram [ECG] [EKG] Status: Acute Assessment and Plan: Continue to monitor (4) Acute respiratory failure: Code(s): J96.00 - Acute respiratory failure, unspecified whether with hypoxia or hypercapnia Status: Acute Assessment and Plan: Breathing treatments Improved. (5) Diastolic congestive heart failure: Code(s): I50.30 - Unspecified diastolic (congestive) heart failure Status: Acute Assessment and Plan: Continue to monitor I/O's daily (6) Syncope: Code(s): R55 - Syncope and collapse Status: Resolved Assessment and Plan: Likely cardiac in origin (7) Cardiac arrest: Code(s): I46.9 - Cardiac arrest, cause unspecified Status: Acute Assessment and Plan: Out of the hospital ROSC within 3 minutes (8) MARC (acute kidney injury): Code(s): N17.9 - Acute kidney failure, unspecified Status: Acute Assessment and Plan: Will go for tunnel catheter for dialysis (9) Diabetes mellitus: Onset Date: Unknown Qualifiers: Diabetes mellitus type: type 2 Diabetes mellitus nursing home insulin use: with remote computer terminal operator use Diabetes mellitus complication status: with kidney complications Diabetes mellitus complication detail: with chronic kidney disease Chronic kidney disease stage: stage 3 (moderate) Chronic kidney disease stage 3 subtype: unspecified whether 3a or 3b Qualified Code(s): E11.22 - Type 2 diabetes mellitus with diabetic chronic kidney disease; N18.30 - Chronic kidney disease, stage 3 unspecified; Z79.4 - termination clerk (current) use of insulin Code(s): E11.9 - Type 2 diabetes mellitus without complications Status: Chronic Assessment and Plan: Carb consistent diet ISS as needed (10) Atrial fibrillation with rapid ventricular response: Onset Date: ~03/2020 Code(s): I48.91 - Unspecified atrial fibrillation Status: Acute Assessment and Plan: Resolved Paroxysmal Continue to monitor (11) Body mass index (BMI) of 50-59.9 in adult: Onset Date: 11/27/18 Code(s): Z68.43 - Body mass index [BMI] 50.0-59.9, adult Status: Acute Assessment and Plan: Lifestyle and diet modifications. (12) KIERRA (obstructive sleep apnea): Code(s): G47.33 - Obstructive sleep apnea (adult) (pediatric) Status: Acute Assessment and Plan: CPAP at night time Subjective Date/time seen: 04/10/20 17:08 Patient states that he feels well. Review of Systems Review of Systems: Narrative: Denies any issues currently. Constitutional: Comments: no fevers, no rigors, no chills. Eyes: Comments: no vision changes. ENT: Comments: no nasal congestion, no throat pain. Cardiovascular: Comments: no chest pain. Respiratory: Comments: no wheezing. Gastrointestinal: Comments: no n/v/abdominal pain. Musculoskeletal: Comments: B/L pedal edema Neurologic: Comments: no sensory motor deficit Exam Narrative: Exam Narrative: Lying in bed. Const: General: comfortable, no acute distress, alert, awake and Physically active Nutritional Appearance: other (Morbid obesity.) Orientation/consciousness: patient oriented x3 HENMT: Head: normal to inspection and normocephalic Ears: hearing grossly normal bilaterally General nose exam: Normal external nose present Face and sinus: normal facial exam Eyes: General: appearance normal, both
[2020-04-10 17:27] LABS: Partial Thromboplastin Time 55.1 SECONDS (22.3-36.8)
[2020-04-10] MEDS: HEPARIN SODIUM 5,000 UNITS/ML VIAL 3500 UNITS IV PUSH (17:36)
[2020-04-10 18:30] LABS: Add Urine Microscopic? YES; Appearance Urine Turbid (Clear); Bacteria Urine 4+ /hpf; Bilirubin Urine Negative (Negative); Blood Urine 3+ (Negative); Budding Yeast Urine Present /hpf; Color Urine Yellow (Yellow); Glucose Urine UA 1+ mg/dL (Negative); Ketones Urine Negative (Negative); Leukocyte Esterase Ur 3+ LEU/UL (NEGATIVE); Mucus Urine Rare /lpf; Nitrate Urine Negative (Negative); Protein Urine 2+ mg/dL (Negative); RBC Urine >75 /hpf (0-2); Specific Grav Ur 1.015 (1.001-1.035); Squamous Epithelial Cell Urine Many /hpf (Few); Urobilinogen Urine Negative mg/dL (<2.0); WBC Clumps Urine Present /HPF; WBC Urine >75 /hpf (0-3)
[2020-04-10 19:51] LABS: Hepatitis B Surface Antigen Negative (Negative)
[2020-04-10 20:01] LABS: Hepatitis B Surface Antigen 0.12 S/C
[2020-04-10 20:16] LABS: Glucose Point of Care 332 (65-105)
[2020-04-10] MEDS: INSULIN GLARGINE (*BKC) 100 UNITS/ML 21 UNITS SUB-Q (20:47)
[2020-04-10 21:27] LABS: Hepatitis B Surface Anti Res Negative; Hepatitis C Virus Antibody Negative (Negative)
[2020-04-11] VITALS (39 sets, daily range): BP systolic 122–167; BP diastolic 43–86; PULSE 53–155; RESP 16–22; TEMP 36.1–37; O2SAT 95–100
[2020-04-11] MEDS: LEVALBUTEROL NEB 1.25 MG/3 ML 0.63 MG INHALATION ×4 (05:02→21:14)
[2020-04-11] MEDS: CENTRAL LINE FLUSH 10 ML IV PUSH ×2 (06:00→21:21)
[2020-04-11 06:29] LABS: Glucose Point of Care 315 (65-105)
--- NOTE | 2020-04-11 06:33 | P.HPUP_ITS ---
History and Physical Update Update Date/Time: 04/11/20 06:33 History and Physical has been reviewed, including an updated exam of the patient. There are changes in the patient's condition. Two days have past since the patient had the procedure canceled because of a high heart rate and some respiratory distress. Her heart rate is been improved now over the last 24 hours and she has had no episodes of significant tachycardia. She is breathing well on a couple L of oxygen. Her heparin drip because of her atrial fibrillation was stopped 4 hours prior to the procedure. Risks, benefits, and alternatives of placement of a tunneled dialysis catheter h ave been discussed and questions answered. Patient agrees to proceed with procedure.
[2020-04-11 06:57] LABS: Albumin Level 3.1 g/dL (3.5-5.1); Anion Gap 5 mmol/L (8-16); Blood Urea Nitrogen 79 mg/dL (7-17); Calcium 9.2 mg/dL (8.4-10.2); Carbon Dioxide 28 mmol/L (22-30); Chloride 105 mmol/L (98-107); Estimated CRCL calculation 12 ml/min; Estimated Glomerular Filt Rate 11; Glucose 315 mg/dL (65-105); Potassium 4.8 mmol/L (3.4-5.0); Sodium 138 mmol/L (137-145)
[2020-04-11 07:13] LABS: INR 1.2; Prothrombin Time 15.9 Seconds (11.1-14.7)
[2020-04-11 07:16] LABS: Partial Thromboplastin Time 43.7 SECONDS (22.3-36.8)
[2020-04-11 07:57] LABS: Glucose Point of Care 289 (65-105)
[2020-04-11] MEDS: AMIODARONE HCL 200 MG TABLET 400 MG PO ×2 (08:40→15:57)
[2020-04-11] MEDS: TIMOLOL MALEATE 0.5% OP SOLN 5 ML BOTTLE 1 DROP EACH EYE ×2 (08:42→21:21)
[2020-04-11] MEDS: BRIMONIDINE TARTRATE 0.2% OP SOLN 5 ML BTL 1 DROP EACH EYE ×2 (08:42→21:21)
[2020-04-11] MEDS: METOPROLOL TARTRATE 50 MG TAB PO ×2 (08:42→19:28)
[2020-04-11] MEDS: INSULIN ASPART (*BKC) 100 UNITS/ML 8 UNITS SUB-Q (08:57)
[2020-04-11] MEDS: LACTATED RINGERS 1,000 ML 30 ML IV CONT ×2 (09:00→11:52)
--- NOTE | 2020-04-11 09:00 | PC.NURSE ---
To OR per bed, IV 20 left hand and triple lumen right internal jugular saline locked. Report given to TARSHA Iverson.
--- NOTE | 2020-04-11 09:11 | P.PNNP_ITS ---
Progress Note: A&P Assessment and Plan (1) MARC (acute kidney injury): Code(s): N17.9 - Acute kidney failure, unspecified Status: Acute Assessment and Plan: * Renal function is still poor. * GFR is stable. * Will get a PermCath done today. * Will initiate dialysis later * we discussed risks, benefits, alternatives, and process of dialysis again she is still willing to proceed. (2) CKD (chronic kidney disease): Qualifiers: Chronic kidney disease stage: unspecified stage Qualified Code(s): N18.9 - Chronic kidney disease, unspecified Code(s): N18.9 - Chronic kidney disease, unspecified Status: Chronic Assessment and Plan: * baseline creatinine runs ~ 1.8 - 2.0mg/dl * likely due to hypertension and diabetes (3) Cardiac arrest: Code(s): I46.9 - Cardiac arrest, cause unspecified Status: Acute Assessment and Plan: * Cardiology following * monitor on board. (4) Acute respiratory failure: Code(s): J96.00 - Acute respiratory failure, unspecified whether with hypoxia or hypercapnia Status: Acute Assessment and Plan: * Chest x-ray shows fluid but only on 2L of oxygen * comfortable breathing. (5) Essential hypertension: Onset Date: Unknown Code(s): I10 - Essential (primary) hypertension Status: Chronic Assessment and Plan: * systolic 130-150. * this may improve with fluid removal. (6) Diabetes mellitus: Onset Date: Unknown Qualifiers: Diabetes mellitus type: type 2 Diabetes mellitus termite helper insulin use: with alf use Diabetes mellitus complication status: with kidney complications Diabetes mellitus complication detail: with chronic kidney disease Chronic kidney disease stage: stage 3 (moderate) Chronic kidney disease stage 3 subtype: unspecified whether 3a or 3b Qualified Code(s): E11.22 - Type 2 diabetes mellitus with diabetic chronic kidney disease; N18.30 - Chronic kidney disease, stage 3 unspecified; Z79.4 - correction (current) use of insulin Code(s): E11.9 - Type 2 diabetes mellitus without complications Status: Chronic Assessment and Plan: * follow accuchecks * on SSI Subjective Date/time seen: 04/11/20 14:08 Interval history: Patient is Feeling better today. She slept well. ate some lunch yesterday NPO for Cath placement. today Review of Systems Cardiovascular: Cardiovascular: Reports no additional cardiovascular complaints Respiratory: Respiratory: Reports no additional respiratory complaints Gastrointestinal: Gastrointestinal: Reports no additional gastrointestinal complaints Genitourinary: Genitourinary: Reports no additional female genitourinary complaints Exam Narrative: Exam Narrative: General: WD/WN AA female in NAD Heart: normal S1 and S2; no rub or gallop Lungs: decreased at bases Abdomen: soft, nontender, nondistended, positive bowel sounds Extremities: no cyanosis or clubbing; 1+edema Skin: no rash or subcu nodules Objective Data Vital Signs Vital Signs: Vital Signs - 24 hr 04/10/20 14:47 04/10/20 15:54 04/10/20 16:00 Temperature 36.2 C L Pulse Rate 101 H 65 64 Respiratory Rate 20 Blood Pressure 144/75 H Pulse Oximetry 95 04/10/20 17:25 04/10/20 20:00 04/10/20 20:48 Temperature
--- NOTE | 2020-04-11 09:11 | PM.PNNEP ---
Progress Note: A&P Assessment and Plan (1) MARC (acute kidney injury): Code(s): N17.9 - Acute kidney failure, unspecified Status: Acute Assessment and Plan: Renal function is still poor. GFR is stable. Will get a PermCath done today. Will initiate dialysis later we discussed risks, benefits, alternatives, and process of dialysis again she is still willing to proceed. (2) CKD (chronic kidney disease): Qualifiers: Chronic kidney disease stage: unspecified stage Qualified Code(s): N18.9 - Chronic kidney disease, unspecified Code(s): N18.9 - Chronic kidney disease, unspecified Status: Chronic Assessment and Plan: baseline creatinine runs ~ 1.8 - 2.0mg/dl likely due to hypertension and diabetes (3) Cardiac arrest: Code(s): I46.9 - Cardiac arrest, cause unspecified Status: Acute Assessment and Plan: Cardiology following monitor on board. (4) Acute respiratory failure: Code(s): J96.00 - Acute respiratory failure, unspecified whether with hypoxia or hypercapnia Status: Acute Assessment and Plan: Chest x-ray shows fluid but only on 2L of oxygen comfortable breathing. (5) Essential hypertension: Onset Date: Unknown Code(s): I10 - Essential (primary) hypertension Status: Chronic Assessment and Plan: systolic 130-150. this may improve with fluid removal. (6) Diabetes mellitus: Onset Date: Unknown Qualifiers: Diabetes mellitus type: type 2 Diabetes mellitus adjunct faculty for medical terminology insulin use: with fdc use Diabetes mellitus complication status: with kidney complications Diabetes mellitus complication detail: with chronic kidney disease Chronic kidney disease stage: stage 3 (moderate) Chronic kidney disease stage 3 subtype: unspecified whether 3a or 3b Qualified Code(s): E11.22 - Type 2 diabetes mellitus with diabetic chronic kidney disease; N18.30 - Chronic kidney disease, stage 3 unspecified; Z79.4 - manager long term care (current) use of insulin Code(s): E11.9 - Type 2 diabetes mellitus without complications Status: Chronic Assessment and Plan: follow accuchecks on SSI Subjective Date/time seen: 04/11/20 14:08 Interval history: Patient is Feeling better today. She slept well. ate some lunch yesterday NPO for Cath placement. today Review of Systems Cardiovascular: Cardiovascular: Reports no additional cardiovascular complaints Respiratory: Respiratory: Reports no additional respiratory complaints Gastrointestinal: Gastrointestinal: Reports no additional gastrointestinal complaints Genitourinary: Genitourinary: Reports no additional female genitourinary complaints Exam Narrative: Exam Narrative: General: WD/WN AA female in NAD Heart: normal S1 and S2; no rub or gallop Lungs: decreased at bases Abdomen: soft, nontender, nondistended, positive bowel sounds Extremities: no cyanosis or clubbing; 1+edema Skin: no rash or subcu nodules Objective Data Vital Signs Vital Signs: Vital Signs - 24 hr 04/10/20 14:47 04/10/20 15:54 04/10/20 16:00 Temperature 36.2 C L Pulse Rate 101 H 65 64 Respiratory Rate 20 Blood Pressure 144/75 H Pulse Oximetry 95 04/10/20 17:25 04/10/20 20:00 04/10/20 20:48 Temperature Pulse Rate 67 72 72 Respiratory Rate 20 Blood Pressure Pulse Oximetry 95 04/10/20 22:00 04/10/20 23:07 04/10/20 23:09 Temperature 36.5 C Pulse Rate 68 61 61 Respiratory Rate 21 H 19 18 Blood Pressure 140/53 L Pulse Oximetry 100 98 04/10/20 23:18 04/11/20 00:57 04/11/20 02:00 Temperature 36.2 C L Pulse Rate 63 55 L 57 L Respiratory Rate 17 21 H Blood Pressure 125/52 L Pulse Oximetry 100 04/11/20 04:00 04/11/20 05:02 04/11/20 06:00 Temperature 36.9 C Pulse Rate 58 L 66 57 L Respiratory Rate 20 20 Blood Pressure 140/56 L Pulse Oximetry 99 04/11/20 08:00 04/11/20
--- NOTE | 2020-04-11 09:29 | WPDANESEPPF ---
Anes - Initial Pre Proc Eval Procedure: Operation Date: 04/09/20 13:45 Proposed Procedures p Insertion Tunneled Dialysis Catheter - Torito Hennessy MD Operation Date: 04/11/20 10:00 Proposed Procedures p PLACEMENT TUNNELED DIALYSIS CATHETER - Torito Hennessy MD Date/Time: 04/11/20 09:29 Surgeon: Monserrat Fletcher MD Pre Op Diagnosis: s/p cardiac arrest Patient Data Age: 69 Gender: F Height: 5 ft 4 in Weight: 97.2 kg Last Vital Signs Temp 97.2 F L 04/11/20 08:00 Pulse 75 04/11/20 08:45 Resp 20 04/11/20 08:45 BP 122/71 04/11/20 08:00 Pulse Ox 96 04/11/20 08:35 Allergies Allergy/AdvReac Type Severity Reaction Status Date / Time lisinopril Allergy Unknown dizziness Verified 07/02/19 13:20 clopidogrel AdvReac Intermediate unkn own Verified 07/02/19 13:20 Home Medications Medication Instructions Recorded Confirmed Type ferrous sulfate 325 mg (65 mg 325 mg PO BID 03/08/19 03/29/20 History iron) tablet furosemide 40 mg tablet 40 mg PO QAM 03/08/19 03/29/20 History insulin aspar prot-insulin aspart 20 unit SUB-Q BID 03/08/19 03/29/20 History 100 unit/mL (70-30) subcutaneous pen insulin glargine 100 unit/mL (3 30 unit SUB-Q DAILY 03/08/19 03/29/20 History mL) subcutaneous pen simvastatin 20 mg tablet 20 mg PO DAILY 03/08/19 03/29/20 History brimonidine 0.2 %-timolol 0.5 % 1 drop EACH EYE Q12H 05/01/19 03/29/20 History eye drops irbesartan 300 mg PO DAILY 03/25/20 03/29/20 History metoprolol tartrate 50 mg PO BID 03/25/20 03/29/20 History sotalol 80 mg PO Q12HR 30 Days #60 tablet 03/28/20 03/29/20 Rx rivaroxaban [Xarelto] 15 mg PO DAILY #90 tablet 03/29/20 03/29/20 Rx Laboratory Tests 02/04/21 02/04/21 02/04/21 10:37 12:00 16:39 PT INR APTT 84.5 SECONDS H SECONDS 55.1 SECONDS H SECONDS (22.3-36.8) (22.3-36.8) Sodium Potassium Chloride Carbon Dioxide Anion Gap BUN Creatinine Estim Creat Clear Calc Estimated GFR Glucose POC Capillary Glucose 321 mg/dl H mg/dl (65-105) Calcium Phosphorus Albumin Urine Color Urine Appearance Urine pH Ur Specific [place] Urine Protein Urine Glucose (UA) Urine Ketones Ur Blood (Man) Urine Nitrate Urine Bilirubin Urine Urobilinogen Ur Leukocyte Esterase Urine RBC Urine WBC Urine WBC Clumps Ur Squamous Epith Cells Urine Bacteria Urine Mucus Urine Yeast (Budding) Hep Bs Antigen Hep Bs Antibody Hep B Core Total Ab Hepatitis C Ab Screen 04/10/20 04/10/20 04/10/20 16:39 16:40 16:40 PT INR APTT Sodium Potassium Chloride Carbon Dioxide Anion Gap BUN Creatinine Estim Creat Clear Calc Estimated GFR Glucose POC Capillary Glucose Calcium Phosphorus Albumin Urine Color Urine Appearance Urine pH Ur Specific [place] Urine Protein Urine Glucose (UA) Urine Ketones Ur Blood (Man) Urine Nitrate Urine Bilirubin Urine Urobilinogen Ur Leukocyte Esterase Urine RBC Urine WBC Urine WBC Clumps Ur Squamous Epith Cells Urine Bacteria Urine Mucus Urine Yeast (Budding) Hep Bs Antigen Negative (Negative) Hep Bs Antibody
[2020-04-11] MEDS: ceFAZolin 2 GM/D5W 50 ML 2 GM/50 ML BAG IVPB (10:18)
[2020-04-11] MEDS: BUPIVACAINE/EPINEPHRINE 0.25% 50 ML VIAL 10 ML INFILTRATE (10:36)
[2020-04-11] MEDS: HEPARIN SODIUM 5,000 UNITS/ML VIAL 10000 UNITS IV PUSH (10:38)
[2020-04-11] MEDS: HEPARIN SODIUM 1,000 UNITS/ML VIAL 1000 UNITS IV PUSH (10:39)
--- NOTE | 2020-04-11 11:56 | PM.PROC ---
Procedure Note - Detailed Date of procedure: 04/11/20 Pre-op diagnosis: s/p cardiac arrest End-stage renal disease Post-op diagnosis: same Procedure performed: Placement of tunneled dialysis catheter Description of procedure: The patient was placed in the supine position on the operating table and after induction of adequate mask general anesthesia by the nurse set off press operator, we carefully rotated the patient's head and tilted slightly to the left then prepping both sides of the neck and chest with chlorhexidine. This patient had a right IJ central line in place so we also prepped did into the field. After waiting 3 minutes I carefully draped the patient, and we performed a time-out confirming the patient's site of surgery. Because of her size, a 32 cm DuraFlow catheter was selected. Initially we were going to change the catheter out over a wire however the wire provided in the kit for her tunneled dialysis catheter did not seem to go all the way through the catheter and 1 folded back there was no wire still left in the vein. Therefore, we discarded the triple-lumen central line and converted to standard technique using ultrasound to find the right jugular vein and reaccessed the right internal jugular vein for placement of the tunneled dialysis catheter. I used ultrasound to identify the right jugular vein in the mid neck and this was cannulated under direct vision with an 18-gauge Arrow needle on a syringe. Good dark blood was aspirated, the J-guidewire was advanced through the needle but after multiple times it did not seem to want to go. We tried 1 more time in the same site and then I changed to the 2 a sound machine and we obtain an do needle and guidewire. Following this we again inspected the right neck and found what appeared to be the right jugular vein laterally in the right neck. This time when the needle was followed to access the vein we could good dark return of blood flow and the guidewire passed easily. C-arm fluoroscopy was used to confirm that was down in the central venous system. The usual Seldinger technique was used. C-arm fluoroscopy was used to confirm that the wire was then through the central venous system and then we removed the needle and blue guide off the wire. Following this, we measured the DuraFlow catheter such that the tip would be just into the right atrium or in the distal superior vena cava. A hemostat was placed on the drapes over the chest to guide where we would place the tip. Then the catheter was measured back to the entry site of the J- wire in a curvilinear fashion and down to her chest overlying the right clavicle. Local anesthetic was placed into 3 vaz, the exit site and then 2 more on her lateral Right neck such that a curvilinear path could be dissected through the subcutaneous tissues up to the insertion site on her right neck. Local anesthetic was infiltrated along the tract prior to tunneling. Incisions were made with an 11 blade knife at the exit site and the 2 counter incisions and then an 11 blade at the wire. The tunneling device was connected to the catheter and this was pulled through these incisions to make the subcutaneous tunnel a curvilinear course through the subcutaneous tissues to the insertion site. Then the wire was serially dilated with a 12, 14, and then a 16-Trinidadian dilator over the pull away sheath. We watched the 16-Trinidadian dilator and sheath go down into the central venous system with C-arm fluoroscopy and then removed the dilator wire after carefully covering the end of the catheter. I lost some blood, as we then inserted the catheter down into the central venous system. The catheter was held in place with a DeBakey forceps and then we carefully tore away the sheath leaving the catheter within the subcutaneous tissues and down into the Right juglar vein. Following this, C-arm fluoroscopy was used to examine the full course of the catheter. The tip was nicely into the superior vena
[2020-04-11 12:02] LABS: Glucose Point of Care 244 (65-105)
[2020-04-11] MEDS: INSULIN ASPART (*BKC) 100 UNITS/ML SUB-Q (12:27)
--- NOTE | 2020-04-11 12:32 | SUR.PHASEI ---
[id number] - dr. cash at bedside
--- NOTE | 2020-04-11 13:00 | PC.NURSE ---
Spoke with Keysha in PACU and she stated 2 units of Novolog was given in the PACU for a blood sugar of 244. TARSHA Chopra stated that she could not get the sliding scale insulin to scan so she got orders for a one time dose of 2 units Novolog. She stated that we could non administer the sliding scale insulin for 1200.
--- NOTE | 2020-04-11 13:50 | PC.NURSE ---
Returned from OR per bed. Report received from TARSHA Chopra.
[2020-04-11] MEDS: ACETAMINOPHEN 325 MG TABLET 650 MG PO (13:58)
[2020-04-11] MEDS: PANTOPRAZOLE 40 MG TABLET PO (13:58)
[2020-04-11] MEDS: SIMVASTATIN 20 MG TABLET PO (13:58)
--- NOTE | 2020-04-11 16:06 | PM.PNCARD ---
Progress Note: A&P Assessment and Plan (1) Afib: Code(s): I48.91 - Unspecified atrial fibrillation Status: Acute Assessment and Plan: Reverting to atrial fibrillation with RVR this afternoon, asymptomatic. She has paroxysms of AFib with RVR with transient bradycardia upon conversion to sinus rhythm from which she has been symptomatic. Difficult balance as persistent AFib with RVR detrimental as is symptomatic bradycardia. When systemic anticoagulation resumed I would change Xarelto to Eliquis 2.5 mg b.i.d. given initiation of hemodialysis. Discontinue heparin drip. Begin Eliquis 2.5 mg b.i.d. in AM. Give amiodarone early, prior to hemodialysis. 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 (2) Diastolic congestive heart failure: Code(s): I50.30 - Unspecified diastolic (congestive) heart failure Status: Acute Assessment and Plan: Renal function continues to deteriorate but she is still making a fair amount of urine. Starting hemodialysis this afternoon. Preserved EF 70% by Echo (3) CKD (chronic kidney disease): Qualifiers: Chronic kidney disease stage: unspecified stage Qualified Code(s): N18.9 - Chronic kidney disease, unspecified Code(s): N18.9 - Chronic kidney disease, unspecified Status: Chronic Assessment and Plan: (4) H/O: HTN (hypertension): Code(s): Z86.79 - Personal history of other diseases of the circulatory system Status: Acute Assessment and Plan: Tends to run a bit high, will continue to follow. (5) Pulmonary hypertension: Onset Date: Unknown Code(s): I27.20 - Pulmonary hypertension, unspecified Status: Acute Assessment and Plan: severe, RVSP 68 mm Hg 03/31/2020. [id number] tricuspid regurgitation mild mitral regurgitation. Pulmonary hypertension most likely secondary to long-standing untreated obstructive sleep apnea, atrial fibrillation not clearly due to valvular pathology. (6) KIERRA (obstructive sleep apnea): Code(s): G47.33 - Obstructive sleep apnea (adult) (pediatric) Status: Acute Assessment and Plan: Longstanding noncompliance with treatment. Tolerating BiPAP this hospitalization. Strongly encourage remain compliant in this regard. Patient agrees. Explained the dangers with noncompliance moving forward including respiratory failure, CHF, cardiac arrest, uncontrolled hypertension. (7) Cardiac arrest: Code(s): I46.9 - Cardiac arrest, cause unspecified Status: Acute Assessment and Plan: no acute issues at this time. sotalol discontinued at admission. No recurrence. Very complicated clinical picture. Patient suffered a cardiac arrest, apparently was asystolic then had a PEA arrest with brief and successful resuscitation. Etiology is uncertain. PE is unlikely if the patient has been taking her Xarelto. No evidence of ventricular arrhythmias. No evidence of an acute ischemic event/ACS by EKG; she does have a mildly elevated troponin but that would be expected after an arrest. No evidence of significant bradycardia on last admission or this admission. Her neurologic status looks good so far. She is hemodynamically stable, not requiring pressors. (8) QT prolongation: Code(s): R94.31 - Abnormal electrocardiogram [ECG] [EKG] Status: Acute Assessment and Plan: QT prolongation has been noted since discharge prior hospitalization, but no significant arrhythmias seen. -12 lead EKG 04/09/2020 QT interval 430 milliseconds. No acute issue. (9) MARC (acute kidney injury): Code(s): N17.9 - Acute kidney failure, unspecified Status: Acute Assessment and Plan:
[2020-04-11 16:24] LABS: Glucose Point of Care 191 (65-105)
[2020-04-11] MEDS: NEOMYCIN/POLYMYXIN/BACITRACIN OINTMENT PACKET 1 PACKET (16:27)
--- NOTE | 2020-04-11 16:30 | PC.NURSE ---
Patient to dialysis per bed.
--- NOTE | 2020-04-11 18:42 | PM.IMPN ---
Progress Note: A&P Assessment and Plan (1) Atrial fibrillation with rapid ventricular response: Code(s): I48.91 - Unspecified atrial fibrillation Status: Acute Assessment and Plan: On sinus rhythm Continue to monitor (2) MARC (acute kidney injury): Code(s): N17.9 - Acute kidney failure, unspecified Status: Acute Assessment and Plan: Requiring HD Appreciate Nephrology note (3) QT prolongation: Code(s): R94.31 - Abnormal electrocardiogram [ECG] [EKG] Status: Acute Assessment and Plan: Continue to monitor. (4) Acute respiratory failure: Code(s): J96.00 - Acute respiratory failure, unspecified whether with hypoxia or hypercapnia Status: Acute Assessment and Plan: Resolved (5) Diastolic congestive heart failure: Code(s): I50.30 - Unspecified diastolic (congestive) heart failure Status: Acute Assessment and Plan: Improved (6) Syncope: Code(s): R55 - Syncope and collapse Status: Resolved Assessment and Plan: Likely secondary to cardiac arrhythmia (7) Cardiac arrest: Code(s): I46.9 - Cardiac arrest, cause unspecified Status: Acute Assessment and Plan: S/p cardiac arrest outside of the hospital ROSC in 3 minutes (8) Pulmonary hypertension: Onset Date: Unknown Code(s): I27.20 - Pulmonary hypertension, unspecified Status: Acute Assessment and Plan: Not on supplemental o2 CPAP at night time Subjective Date/time seen: 04/11/20 18:42 States that she feels well. Review of Systems Review of Systems: Narrative: denies any issues currently. Constitutional: Comments: no fevers, no rigors, no chills. Cardiovascular: Comments: no chest pain. Respiratory: Comments: no sob. Gastrointestinal: Comments: odynophagia Musculoskeletal: Comments: no joint pain. Integumentary/Breasts: Comments: no rashes Neurologic: Comments: no sensory motor deficit. Exam Narrative: Exam Narrative: Lying in bed Const: General: comfortable, no acute distress, alert and awake Nutritional Appearance: other (Morbid obesity.) Orientation/consciousness: patient oriented x3 HENMT: Head: normal to inspection and normocephalic Ears: hearing grossly normal bilaterally General nose exam: Normal external nose present Face and sinus: normal facial exam Eyes: General: appearance normal, both eyes and all related structures Pupils: Equal, round and reactive pupils present EOM: EOMs intact bilaterally Neck: Neck: no lymphadenopathy, supple and no JVD Resp: Effort & Inspection: able to speak in complete sentences Auscultation: clear to auscultation bilaterally Cardio: Rate: regular rate Rhythm: regular rhythm GI: GI Palp: Yes Soft to palpation and Yes No hepatosplenomegaly present Skin: Rashes: no rashes Neuro: General: patient oriented x3 and CN's II-XI intact bilaterally Cranial nerves: Yes CN's II-XII intact bilaterally and Yes Equal, round and reactive pupils present Cognition (Neuro): normal cognition Motor exam (neuro): 5/5 motor strength present throughout Extrem: General: pedal edema bilaterally 1+ Objective Data Vital Signs Vital Signs: Vital Signs - 24 hr 04/10/20 20:00 04/10/20 20:48 04/10/20 22:00 Temperature 97.7 F Pulse Rate 72 72 68 Respiratory Rate 20 21 H Blood Pressure 140/53 L Pulse Oximetry 95 100 04/10/20 23:07 04/10/20 23:09 04/10/20 23:18 Temperature Pulse Rate 61 61 63 Respiratory Rate 19 18 17 Blood Pressure Pulse Oximetry 98 04/11/20 00:57 04/11/20 02:00 04/11/20 04:00 Temperature 97.1 F L Pulse Rate 55 L 57 L 58 L Respiratory Rate 21 H Blood Pressure 125/52 L Pulse Oximetry 100 04/11/20 05:02 04/11/20 06:00 04/11/20 08:00 Temperature 98.4 F 97.2 F L Pulse Rate 66 57 L 57 L Respiratory Rate 20 20 18 Blood Pressure 140/56 L 122/71 Pulse Oximetry 99 100 04/11/20 08:35 04/11/20 08:40 02
[2020-04-11 18:54] LABS: Basophils Percent Auto 0.1 % (0.2-1.2); Eosinophils Absolute Auto 0.1 K/mm3 (0-0.3); Eosinophils Percent Auto 0.6 % (0-4.4); Hematocrit 29.5 % (37.0-47.0); Hemoglobin 9.5 g/dL (12.0-15.0); Immature Granulocyte Absolute 0.19 K/mm3 (0.00-0.031); Immature Granulocyte Percent A 1.8 % (0-0.5); Lymphocytes Percent Auto 13.6 % (18.3-44.2); Mean Corpuscular HGB Conc 32.2 g/dl (32-36); Mean Corpuscular Hemoglobin 25.3 pg (26-34); Mean Corpuscular Volume 78.5 fl (80-100); Mean Platelet Volume 10.7 fl (7.4-10.4); Monocytes Absolute Auto 0.4 K/mm3 (0.1-0.6); Monocytes Percent Auto 3.7 % (2.6-8.5); Neutrophils Absolute Auto 8.3 K/mm3 (1.3-6.7); Neutrophils Percent Auto 80.2 % (45.5-73.1); Platelet Count Result 188 k/mm3 (150-375); Red Blood Count 3.76 M/mm3 (4.2-5.4); Red Cell Distribution Width 15.3 % (11.5-14.5); White Blood Count 10.3 K/mm3 (4.5-10.0)
[2020-04-11 19:08] LABS: Anion Gap 6 mmol/L (8-16); Blood Urea Nitrogen 74 mg/dL (7-17); Calcium 9.4 mg/dL (8.4-10.2); Carbon Dioxide 30 mmol/L (22-30); Chloride 107 mmol/L (98-107); Estimated CRCL calculation 14 ml/min; Estimated Glomerular Filt Rate 13; Glucose 195 mg/dL (65-105); Potassium 4.3 mmol/L (3.4-5.0); Sodium 143 mmol/L (137-145)
--- NOTE | 2020-04-11 19:41 | PC.NURSE ---
Pt is in dialysis at this time
[2020-04-11 21:18] LABS: Glucose Point of Care 158 (65-105)
[2020-04-11] MEDS: INSULIN GLARGINE (*BKC) 100 UNITS/ML 21 UNITS SUB-Q (21:19)
[2020-04-12] VITALS (35 sets, daily range): BP systolic 114–165; BP diastolic 47–88; PULSE 58–148; RESP 16–20; TEMP 35.9–37; O2SAT 95–100; BMI 10.0
[2020-04-12] MEDS: METOPROLOL TARTRATE 25 MG TABLET 75 MG PO (00:52)
[2020-04-12] MEDS: LEVALBUTEROL NEB 1.25 MG/3 ML 0.63 MG INHALATION ×4 (02:01→21:38)
[2020-04-12 07:42] LABS: Glucose Point of Care 145 (65-105)
[2020-04-12] MEDS: AMIODARONE HCL 200 MG TABLET 400 MG PO ×2 (08:43→16:49)
[2020-04-12] MEDS: TIMOLOL MALEATE 0.5% OP SOLN 5 ML BOTTLE 1 DROP EACH EYE ×2 (08:45→21:32)
[2020-04-12] MEDS: BRIMONIDINE TARTRATE 0.2% OP SOLN 5 ML BTL 1 DROP EACH EYE ×2 (08:45→21:32)
[2020-04-12] MEDS: APIXABAN 2.5 MG TABLET PO ×2 (08:45→21:37)
[2020-04-12] MEDS: PANTOPRAZOLE 40 MG TABLET PO (08:45)
--- NOTE | 2020-04-12 08:45 | WPDANESPN ---
Anes - Prog Note Post-Op Date/Time: 04/12/20 08:45 Cardiovascular status: other (afib ) Respiratory status: other (cpap) Mental status: baseline and other Post-Op hydration status: normal Vital Signs: Last Vital Signs Temp 36.4 C L 04/12/20 04:00 Pulse 110 H 04/12/20 08:43 Resp 20 04/12/20 04:00 BP 136/68 04/12/20 04:00 Pulse Ox 100 04/12/20 04:00 Pain Score (VAS): no complaints I/O: Intake & Output 04/11/20 04/12/20 04/12/20 23:59 07:59 15:59 Intake Total 780 Output Total 2000 950 Balance -1220 -950 Laboratory Tests 04/11/20 18:19 04/11/20 18:19 04/11/20 04/11/20 04/11/20 12:00 16:21 18:19 WBC 10.3 H RBC 3.76 L Hgb 9.5 L Hct 29.5 L MCV 78.5 L MCH 25.3 L MCHC 32.2 RDW 15.3 H Plt Count 188 MPV 10.7 H Immature Gran % (Auto) 1.8 H Neut % (Auto) 80.2 H Lymph % (Auto) 13.6 L [place] % (Auto) 3.7 Eos % (Auto) 0.6 Baso % (Auto) 0.1 L Lymph # (Auto) 1.40 [place] # (Auto) 0.4 Eos # (Auto) 0.1 Baso # (Auto) 0.0 Abs Immat Gran (auto) 0.19 H Absolute Neuts (auto) 8.3 H Absolute Nucleated RBC 0.0 Nucleated RBC % 0.0 Sodium Potassium Chloride Carbon Dioxide Anion Gap BUN Creatinine Estim Creat Clear Calc Estimated GFR Glucose POC Capillary Glucose 244 H 191 H Calcium 04/11/20 04/11/20 04/12/20 18:19 21:15 07:39 WBC RBC Hgb Hct MCV MCH MCHC RDW Plt Count MPV Immature Gran % (Auto) Neut % (Auto) Lymph % (Auto) [place] % (Auto) Eos % (Auto) Baso % (Auto) Lymph # (Auto) [place] # (Auto) Eos # (Auto) Baso # (Auto) Abs Immat Gran (auto) Absolute Neuts (auto) Absolute Nucleated RBC Nucleated RBC % Sodium 143 Potassium 4.3 Chloride 107 Carbon Dioxide 30 Anion Gap 6 L BUN 74 H Creatinine 4.20 H Estim Creat Clear Calc 14 Estimated GFR 13 L Glucose 195 H POC Capillary Glucose 158 H 145 H Calcium 9.4 Microbiology 04/10/20 18:05 Urine [place] Urine Culture - Final Escherichia Coli Post-procedural complaints: none Patient Feedback: Patient satisfied with anesthetic care.
--- NOTE | 2020-04-12 09:16 | PC.NURSE ---
To dialysis report given to
--- NOTE | 2020-04-12 09:43 | PM.PNCARD ---
Progress Note: A&P Additional Plan Parxysmal AF with RVR, difficult to control HR and episodes of bradycardia on conversion to sinus rhythm, HTN, MARC on CKD on HD, Asymptomatic, plan increase metoptolol to 100 mg BID and cont amiodarone, accept HR < 130, cont eliquis 2.5 mg BID Subjective Date/time seen: 04/12/20 09:43 Interval history: No acute events overnight Tele: AF with RVR HR 100 to 140 Review of Systems Review of Systems: All systems reviewed & are unremarkable except as noted in HPI and below Exam Const: General: comfortable and no acute distress Other: Able to lie flat HENMT: General nose exam: Normal nares present and no epistaxis Mouth: Yes moist mucous membranes Eyes: Sclera: sclerae normal Pupils: Equal, round and reactive pupils present Neck: Neck: supple and no JVD Carotids: no bruits Resp: Auscultation: clear to auscultation bilaterally and lung sounds not diminished Other: No chest wall tenderness Cardio: Rate: abnormal rate Rhythm: abnormal rhythm Heart sounds: no gallops, no murmurs and no rubs GI: GI Palp: Yes Soft to palpation and No Tenderness to palpation present (GI) Auscultation: normal bowel sounds Skin: General skin exam: normal color, rashes and/or lesions noted and no erythema Other: Warm Neuro: Cranial nerves: Yes Equal, round and reactive pupils present Speech: normal speech Other: No obvious focal deficit or facial asymmetry Extrem: General: no edema Other: Normal capillary refills Intact distal pulses. Objective Data Vital Signs Vital Signs: Vital Signs - 24 hr 04/11/20 11:52 04/11/20 12:00 04/11/20 12:15 Temperature 36.1 C L Pulse Rate 53 L 61 61 Respiratory Rate 18 18 20 Blood Pressure 130/62 147/65 H 133/79 Pulse Oximetry 100 98 100 04/11/20 12:30 04/11/20 12:45 04/11/20 13:00 Temperature Pulse Rate 56 L 56 L 55 L Respiratory Rate 16 20 20 Blood Pressure 123/43 L 149/63 H 156/65 H Pulse Oximetry 100 100 100 04/11/20 14:05 04/11/20 14:15 04/11/20 15:57 Temperature Pulse Rate 72 75 100 Respiratory Rate 20 20 Blood Pressure Pulse Oximetry 04/11/20 16:00 04/11/20 18:24 04/11/20 18:38 Temperature 36.1 C L 36.7 C Pulse Rate 121 H 121 H 140 H Respiratory Rate 18 20 Blood Pressure 155/75 H 161/78 H 143/72 H Pulse Oximetry 100 04/11/20 18:45 04/11/20 19:00 04/11/20 19:15 Temperature Pulse Rate 111 H 121 H 120 H Respiratory Rate Blood Pressure 144/62 H 152/69 H 133/82 Pulse Oximetry 04/11/20 19:28 04/11/20 19:30 04/11/20 20:00 Temperature Pulse Rate 120 H 127 H 128 H Respiratory Rate Blood Pressure 160/81 H 142/86 H Pulse Oximetry 04/11/20 20:15 04/11/20 20:30 04/11/20 20:38 Temperature Pulse Rate 119 H 113 H 110 H Respiratory Rate Blood Pressure 167/77 H 146/82 H 144/80 H Pulse Oximetry 04/11/20 20:45 04/11/20 21:14 04/11/20 21:24 Temperature 36.8 C Pulse Rate 128 H 137 H 140 H Respiratory Rate 20 22 H 22 H Blood Pressure 145/82 H Pulse Oximetry 98 04/11/20 21:26 04/11/20 22:32 04/11/20 23:50 Temperature 36.5 C 36.2 C L Pulse Rate 155 H 126 H 112 H Respiratory Rate 20 17 16 Blood Pressure 155/50 H 122/65 Pulse Oximetry 99 99 98 04/12/20 00:00 04/12/20 00:52 04/12/20 02:04 Temperature Pulse Rate 119 H 120 H 111 H Respiratory Rate 18 Blood Pressure Pulse Oximetry 96 04/12/20 04:00 04/12/20 08:43 04/12/20 09:32 Temperature 36.4 C L Pulse Rate 148 H 110 H 113 H Respiratory Rate 20 Blood Pressure 136/68 152/88 H Pulse Oximetry 100 Intake/Output Intake/Output: Intake & Output 04/09/20 04/10/20 04/11/20 04/12/20 23:59 23:59 23:59 23:59 Intake Total 245 1745 830 Output Total 2223 084 2974 089 -1979 709 -3847 -498 Meds/Results Medications: Active Medications Generic Name Dose Route Start Last Admin Trade Name Freq PRN Reason Stop Dose Admin Acetaminophen 650 mg 04/06/20 11:28 04/11/20 13:58
--- NOTE | 2020-04-12 10:27 | PM.PNNEP ---
Progress Note: A&P Assessment and Plan (1) MARC (acute kidney injury): Code(s): N17.9 - Acute kidney failure, unspecified Status: Acute Assessment and Plan: Renal function is still poor. Had dialysis yesterday. Getting again today and then again on Tuesday (2) CKD (chronic kidney disease): Qualifiers: Chronic kidney disease stage: unspecified stage Qualified Code(s): N18.9 - Chronic kidney disease, unspecified Code(s): N18.9 - Chronic kidney disease, unspecified Status: Chronic Assessment and Plan: baseline creatinine runs ~ 1.8 - 2.0mg/dl likely due to hypertension and diabetes (3) Cardiac arrest: Code(s): I46.9 - Cardiac arrest, cause unspecified Status: Acute Assessment and Plan: Cardiology following monitor on board. No more SVT episodes (4) Acute respiratory failure: Code(s): J96.00 - Acute respiratory failure, unspecified whether with hypoxia or hypercapnia Status: Acute Assessment and Plan: Chest x-ray shows fluid but only on 2L of oxygen comfortable breathing. (5) Essential hypertension: Onset Date: Unknown Code(s): I10 - Essential (primary) hypertension Status: Chronic Assessment and Plan: systolic 130-150. this may improve with fluid removal. 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 She is less short of breath She had her 1st dialysis yesterday and did well. She is on dialysis again today. Exam Narrative: Exam Narrative: General: WD/WN AA female in NAD Heart: normal S1 and S2; no rub or gallop Lungs: decreased at bases Abdomen: soft, nontender, nondistended, positive bowel sounds Extremities: no cyanosis or clubbing; 1+edema Skin: no rash or subcu nodules Objective Data Vital Signs Vital Signs: Vital Signs - 24 hr 04/11/20 11:52 04/11/20 12:00 04/11/20 12:15 Temperature 36.1 C L Pulse Rate 53 L 61 61 Respiratory Rate 18 18 20 Blood Pressure 130/62 147/65 H 133/79 Pulse Oximetry 100 98 100 04/11/20 12:30 04/11/20 12:45 04/11/20 13:00 Temperature Pulse Rate 56 L 56 L 55 L Respiratory Rate 16 20 20 Blood Pressure 123/43 L 149/63 H 156/65 H Pulse Oximetry 100 100 100 04/11/20 14:05 04/11/20 14:15 04/11/20 15:57 Temperature Pulse Rate 72 75 100 Respiratory Rate 20 20 Blood Pressure Pulse Oximetry 04/11/20 16:00 04/11/20 18:24 04/11/20 18:38 Temperature 36.1 C L 36.7 C Pulse Rate 121 H 121 H 140 H Respiratory Rate 18 20 Blood Pressure 155/75 H 161/78 H 143/72 H Pulse Oximetry 100 04/11/20 18:45 04/11/20 19:00 04/11/20 19:15 Temperature Pulse Rate 111 H 121 H 120 H Respiratory Rate Blood Pressure 144/62 H 152/69 H 133/82 Pulse Oximetry 04/11/20 19:28 04/11/20 19:30 04/11/20 20:00 Temperature Pulse Rate 120 H 127 H 128 H Respiratory Rate Blood Pressure 160/81 H 142/86 H Pulse Oximetry 04/11/20 20:15 04/11/20 20:30 04/11/20 20:38 Temperature Pulse Rate 119 H 113 H 110 H Respiratory Rate Blood Pressure 167/77 H 146/82 H 144/80 H Pulse Oximetry 04/11/20 20:45 02
--- NOTE | 2020-04-12 11:04 | PCOTNOTE ---
Attempted to see pt this AM. RN stated that pt is at dialysis right now. Will attempt this PM if able to. Will continue per POC duration/frequency tomorrow.
[2020-04-12] MEDS: HEPARIN SODIUM 1,000 UNITS/ML VIAL 1000 UNITS IV PUSH (12:17)
--- NOTE | 2020-04-12 12:37 | PC.NURSE ---
Return from dialysis. Report received from
[2020-04-12 12:46] LABS: Glucose Point of Care 132 (65-105)
[2020-04-12] MEDS: METOPROLOL TARTRATE 50 MG TAB 100 MG PO ×2 (13:09→21:34)
[2020-04-12] MEDS: PHENOL/SOD PHENO SPRAY CHERRY (*BKC) 2 SPRAY MUCOUS MEM (13:19)
--- NOTE | 2020-04-12 17:38 | PM.IMPN ---
Progress Note: A&P Assessment and Plan (1) Hypertensive chronic kidney disease with stage 1 through stage 4 chronic kidney disease, or unspecified chronic kidney disease: Code(s): I12.9 - Hypertensive chronic kidney disease with stage 1 through stage 4 chronic kidney disease, or unspecified chronic kidney disease Status: Acute Assessment and Plan: Requiring HD Appreciate Nephro note Folow recomendations. (2) KIERRA (obstructive sleep apnea): Code(s): G47.33 - Obstructive sleep apnea (adult) (pediatric) Status: Acute Assessment and Plan: On CPAP at night time (3) Atrial fibrillation with rapid ventricular response: Onset Date: ~03/2020 Code(s): I48.91 - Unspecified atrial fibrillation Status: Acute Assessment and Plan: On sinus rhythm (4) Syncope: Code(s): R55 - Syncope and collapse Status: Resolved Assessment and Plan: Of Cardiac origin. (5) Diastolic congestive heart failure: Code(s): I50.30 - Unspecified diastolic (congestive) heart failure Status: Acute Assessment and Plan: Stable Continue to monitor I/O (6) Acute respiratory failure: Code(s): J96.00 - Acute respiratory failure, unspecified whether with hypoxia or hypercapnia Status: Acute Assessment and Plan: Resolved (7) QT prolongation: Code(s): R94.31 - Abnormal electrocardiogram [ECG] [EKG] Status: Acute Assessment and Plan: Continue to monitor (8) Pulmonary hypertension: Onset Date: Unknown Code(s): I27.20 - Pulmonary hypertension, unspecified Status: Acute Assessment and Plan: On CPAP at night time (9) Cardiac arrest: Code(s): I46.9 - Cardiac arrest, cause unspecified Status: Acute Assessment and Plan: Resolved Outside of the hospital (10) Restrictive lung disease: Code(s): J98.4 - Other disorders of lung Status: Acute Assessment and Plan: Supportive care Lifestyle and diet modifications (11) Body mass index (BMI) of 50-59.9 in adult: Onset Date: 11/27/18 Code(s): Z68.43 - Body mass index [BMI] 50.0-59.9, adult Status: Acute Assessment and Plan: Calorie consistent diet Subjective Date/time seen: 04/12/20 17:38 States that she feels well, except for pain when swallowing. Review of Systems Review of Systems: Narrative: Pain when swallowing Constitutional: Comments: no fevers, no rigors, no chills. Genitourinary: Comments: Rene in Exam Narrative: Exam Narrative: Lying in bed Const: General: no acute distress and other (Chronically ill looking.) Nutritional Appearance: other (Morbid obesity.) Orientation/consciousness: patient oriented x3 HENMT: Head: normocephalic Ears: hearing grossly normal bilaterally General nose exam: Normal external nose present Face and sinus: normal facial exam Eyes: Pupils: Equal, round and reactive pupils present EOM: EOMs intact bilaterally Neck: Neck: no lymphadenopathy, supple and no JVD Resp: Auscultation: clear to auscultation bilaterally Cardio: Rate: regular rate Rhythm: regular rhythm GI: GI Palp: Yes Soft to palpation and Yes No hepatosplenomegaly present Skin: Rashes: no rashes Neuro: General: patient oriented x3 and CN's II-XI intact bilaterally Cranial nerves: Yes CN's II-XII intact bilaterally and Yes Equal, round and reactive pupils present Cognition (Neuro): normal cognition Motor exam (neuro): 5/5 motor strength present throughout Extrem: General: pedal edema bilaterally 1+ Objective Data Vital Signs Vital Signs: Vital Signs - 24 hr 04/11/20 18:24 04/11/20 18:38 04/11/20 18:45 Temperature 98.1 F Pulse Rate 121 H 140 H 111 H Respiratory Rate 20 Blood Pressure 161/78 H 143/72 H 144/62 H Pulse Oximetry 04/11/20 19:00 04/11/20 19:15 04/11/20 19:28 Temperature Pulse Rate 121 H 120 H 120 H Respiratory Rate Blood Pressure
[2020-04-12 18:03] LABS: Glucose Point of Care 146 (65-105)
[2020-04-12] MEDS: INSULIN GLARGINE (*BKC) 100 UNITS/ML 21 UNITS SUB-Q (21:36)
[2020-04-12] MEDS: SIMVASTATIN 20 MG TABLET PO (21:39)
[2020-04-12 21:54] LABS: Glucose Point of Care 175 (65-105)
[2020-04-13] VITALS (26 sets, daily range): BP systolic 135–158; BP diastolic 53–71; PULSE 53–91; RESP 15–22; TEMP 35.9–36.2; O2SAT 92–100
[2020-04-13] MEDS: LEVALBUTEROL NEB 1.25 MG/3 ML 0.63 MG INHALATION ×5 (02:29→20:33)
[2020-04-13 05:54] LABS: Basophils Percent Auto 0.1 % (0.2-1.2); Eosinophils Absolute Auto 0.1 K/mm3 (0-0.3); Eosinophils Percent Auto 1.5 % (0-4.4); Hematocrit 30.2 % (37.0-47.0); Hemoglobin 9.6 g/dL (12.0-15.0); Immature Granulocyte Absolute 0.04 K/mm3 (0.00-0.031); Immature Granulocyte Percent A 0.4 % (0-0.5); Lymphocytes Absolute Auto 1.54 K/mm3 (0.9-3.2); Lymphocytes Percent Auto 16.5 % (18.3-44.2); Mean Corpuscular HGB Conc 31.8 g/dl (32-36); Mean Corpuscular Hemoglobin 25.2 pg (26-34); Mean Corpuscular Volume 79.3 fl (80-100); Mean Platelet Volume 11.2 fl (7.4-10.4); Monocytes Percent Auto 11.1 % (2.6-8.5); Neutrophils Absolute Auto 6.6 K/mm3 (1.3-6.7); Neutrophils Percent Auto 70.4 % (45.5-73.1); Platelet Count Result 195 k/mm3 (150-375); Red Blood Count 3.81 M/mm3 (4.2-5.4); Red Cell Distribution Width 15.2 % (11.5-14.5); White Blood Count 9.4 K/mm3 (4.5-10.0)
[2020-04-13 06:05] LABS: Anion Gap 4 mmol/L (8-16); Blood Urea Nitrogen 39 mg/dL (7-17); Calcium 8.5 mg/dL (8.4-10.2); Carbon Dioxide 32 mmol/L (22-30); Chloride 105 mmol/L (98-107); Estimated CRCL calculation 25 ml/min; Estimated Glomerular Filt Rate 20; Glucose 141 mg/dL (65-105); Sodium 141 mmol/L (137-145)
[2020-04-13] MEDS: APIXABAN 2.5 MG TABLET PO ×2 (08:37→21:19)
[2020-04-13] MEDS: AMIODARONE HCL 200 MG TABLET 400 MG PO ×2 (08:37→16:38)
[2020-04-13] MEDS: METOPROLOL TARTRATE 50 MG TAB 100 MG PO (08:38)
[2020-04-13] MEDS: PANTOPRAZOLE 40 MG TABLET PO (08:38)
[2020-04-13] MEDS: TIMOLOL MALEATE 0.5% OP SOLN 5 ML BOTTLE 1 DROP EACH EYE ×2 (08:38→21:26)
[2020-04-13] MEDS: BRIMONIDINE TARTRATE 0.2% OP SOLN 5 ML BTL 1 DROP EACH EYE ×2 (08:38→21:26)
[2020-04-13] MEDS: PHENOL/SOD PHENO SPRAY CHERRY (*BKC) 2 SPRAY MUCOUS MEM (08:41)
[2020-04-13 08:46] LABS: Glucose Point of Care 128 (65-105)
--- NOTE | 2020-04-13 08:51 | P.PNNP_ITS ---
Progress Note: A&P Assessment and Plan (1) MARC (acute kidney injury): Code(s): N17.9 - Acute kidney failure, unspecified Status: Acute Assessment and Plan: * Probably a combination of severe pulmonary hypertension leading to chronic pre renal azotemia, UTI, and underlying kidney disease. * Consider renal biopsy on tuesday. * Urine output is low. * Had dialysis yesterday. * Will schedule for tomorrow. * Continue to watch for renal recovery. (2) CKD (chronic kidney disease): Qualifiers: Chronic kidney disease stage: unspecified stage Qualified Code(s): N18.9 - Chronic kidney disease, unspecified Code(s): N18.9 - Chronic kidney disease, unspecified Status: Chronic Assessment and Plan: * baseline creatinine runs ~ 1.8 - 2.0mg/dl * likely due to hypertension and diabetes (3) Cardiac arrest: Code(s): I46.9 - Cardiac arrest, cause unspecified Status: Acute Assessment and Plan: * Cardiology following * monitor on board. * No more SVT episodes (4) Acute respiratory failure: Code(s): J96.00 - Acute respiratory failure, unspecified whether with hypoxia or hypercapnia Status: Acute Assessment and Plan: * We have removed fluid. Will check a chest x-ray in the morning * ? Wean oxygen (5) Essential hypertension: Onset Date: Unknown Code(s): I10 - Essential (primary) hypertension Status: Chronic Assessment and Plan: * systolic 120-150. * On metoprolol 100 b.i.d. * this may improve with fluid removal. 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 She ate a little bit of breakfast: Grits and a couple strips of torres. She is lying flat and denies shortness of breath. She wears a BiPAP at night Review of Systems Cardiovascular: Cardiovascular: Reports no additional cardiovascular complaints Respiratory: Respiratory: Reports no additional respiratory complaints Gastrointestinal: Gastrointestinal: Reports no additional gastrointestinal com plaints Genitourinary: Genitourinary: Reports no additional female genitourinary complaints Exam Narrative: Exam Narrative: General: WD/WN AA female in NAD Heart: normal S1 and S2; no rub or gallop Lungs: decreased at bases Abdomen: soft, nontender, nondistended, positive bowel sounds Extremities: no cyanosis or clubbing; 1+edema Skin: no rash or subcu nodules Objective Data Vital Signs Vital Signs: Vital Signs - 24 hr 04/12/20 09:13 04/12/20 09:20 04/12/20 09:23 Temperature 36.6 C Pulse Rate 111 H 123 H 108 H Respira
--- NOTE | 2020-04-13 08:51 | PM.PNNEP ---
Progress Note: A&P Assessment and Plan (1) MARC (acute kidney injury): Code(s): N17.9 - Acute kidney failure, unspecified Status: Acute Assessment and Plan: Probably a combination of severe pulmonary hypertension leading to chronic pre renal azotemia, UTI, and underlying kidney disease. Consider renal biopsy on tuesday. Urine output is low. Had dialysis yesterday. Will schedule for tomorrow. Continue to watch for renal recovery. (2) CKD (chronic kidney disease): Qualifiers: Chronic kidney disease stage: unspecified stage Qualified Code(s): N18.9 - Chronic kidney disease, unspecified Code(s): N18.9 - Chronic kidney disease, unspecified Status: Chronic Assessment and Plan: baseline creatinine runs ~ 1.8 - 2.0mg/dl likely due to hypertension and diabetes (3) Cardiac arrest: Code(s): I46.9 - Cardiac arrest, cause unspecified Status: Acute Assessment and Plan: Cardiology following monitor on board. No more SVT episodes (4) Acute respiratory failure: Code(s): J96.00 - Acute respiratory failure, unspecified whether with hypoxia or hypercapnia Status: Acute Assessment and Plan: We have removed fluid. Will check a chest x-ray in the morning ? Wean oxygen (5) Essential hypertension: Onset Date: Unknown Code(s): I10 - Essential (primary) hypertension Status: Chronic Assessment and Plan: systolic 120-150. On metoprolol 100 b.i.d. this may improve with fluid removal. (6) Diabetes mellitus: Onset Date: Unknown Qualifiers: Chronic kidney disease stage: stage 3 (moderate) Chronic kidney disease stage 3 subtype: unspecified whether 3a or 3b Diabetes mellitus complication detail: with chronic kidney disease Diabetes mellitus complication status: with kidney complications Diabetes mellitus shelter insulin use: with shelter use Diabetes mellitus type: type 2 Qualified Code(s): E11.22 - Type 2 diabetes mellitus with diabetic chronic kidney disease; N18.30 - Chronic kidney disease, stage 3 unspecified; Z79.4 - retirement (current) use of insulin Code(s): E11.9 - Type 2 diabetes mellitus without complications Status: Chronic Assessment and Plan: follow accuchecks on SSI Subjective Date/time seen: 04/13/20 08:51 Interval history: Patient is lying in bed. She ate a little bit of breakfast: Grits and a couple strips of torres. She is lying flat and denies shortness of breath. She wears a BiPAP at night Review of Systems Cardiovascular: Cardiovascular: Reports no additional cardiovascular complaints Respiratory: Respiratory: Reports no additional respiratory complaints Gastrointestinal: Gastrointestinal: Reports no additional gastrointestinal complaints Genitourinary: Genitourinary: Reports no additional female genitourinary complaints Exam Narrative: Exam Narrative: General: WD/WN AA female in NAD Heart: normal S1 and S2; no rub or gallop Lungs: decreased at bases Abdomen: soft, nontender, nondistended, positive bowel sounds Extremities: no cyanosis or clubbing; 1+edema Skin: no rash or subcu nodules Objective Data Vital Signs Vital Signs: Vital Signs - 24 hr 04/12/20 09:13 04/12/20 09:20 04/12/20 09:23 Temperature 36.6 C Pulse Rate 111 H 123 H 108 H Respiratory Rate 18 20 18 Blood Pressure 139/83 Pulse Oximetry 96 04/12/20 09:32 04/12/20 09:45 04/12/20 10:00 Temperature Pulse Rate 113 H 113 H 114 H Respiratory Rate Blood Pressure 152/88 H 165/83 H 165/78 H Pulse Oximetry 04/12/20 10:15 04/12/20 10:30 04/12/20 10:45 Temperature Pulse Rate 120 H 104 H 109 H Respiratory Rate Blood Pressure 133/72 141/74 H 129/76 Pulse Oximetry 04/12/20 11:00 04/12/20 11:15 04/12/20 11:30 Temperature Pulse Rate 88 110 H 110 H Respiratory Rate Blood Pressure 127/77 139/78 114/61 Pu
[2020-04-13 11:40] LABS: Glucose Point of Care 143 (65-105)
--- NOTE | 2020-04-13 12:06 | PM.PNCARD ---
Progress Note: A&P Additional Plan Paroxysmal AF with RVR, difficult to control HR and episodes of bradycardia on conversion to sinus rhythm, HTN, MARC on CKD on HD, Asymptomatic, back to SR today HR in 60s plan metoptolol 75 mg BID and cont amiodarone, accept HR < 130, cont eliquis 2.5 mg BID Subjective Date/time seen: 04/13/20 12:06 Interval history: no acute events Tele: SR in 60s Review of Systems Review of Systems: All systems reviewed & are unremarkable except as noted in HPI and below Exam Const: General: comfortable and no acute distress Other: Able to lie flat HENMT: General nose exam: Normal nares present and no epistaxis Mouth: Yes moist mucous membranes Eyes: Sclera: sclerae normal Pupils: Equal, round and reactive pupils present Neck: Neck: supple and no JVD Carotids: no bruits Resp: Auscultation: clear to auscultation bilaterally and lung sounds not diminished Other: No chest wall tenderness Cardio: Rate: regular rate Rhythm: regular rhythm Heart sounds: no gallops, no murmurs and no rubs GI: GI Palp: Yes Soft to palpation and No Tenderness to palpation present (GI) Auscultation: normal bowel sounds Skin: General skin exam: normal color, rashes and/or lesions noted and no erythema Other: Warm Neuro: Cranial nerves: Yes Equal, round and reactive pupils present Speech: normal speech Other: No obvious focal deficit or facial asymmetry Extrem: General: no edema Other: Normal capillary refills Intact distal pulses. Objective Data Vital Signs Vital Signs: Vital Signs - 24 hr 04/12/20 12:10 04/12/20 13:09 04/12/20 13:22 Temperature 36.8 C Pulse Rate 117 H 104 H 108 H Respiratory Rate 20 18 Blood Pressure 144/71 H Pulse Oximetry 04/12/20 13:32 04/12/20 16:00 04/12/20 16:49 Temperature 36.1 C L Pulse Rate 110 H 119 H 128 H Respiratory Rate 18 18 Blood Pressure 151/69 H Pulse Oximetry 100 04/12/20 20:00 04/12/20 21:34 04/12/20 21:39 Temperature 36.2 C L Pulse Rate 58 L 59 L 58 L Respiratory Rate 16 18 Blood Pressure 128/47 L Pulse Oximetry 99 04/12/20 21:46 04/12/20 21:48 04/12/20 22:00 Temperature Pulse Rate 58 L 62 63 Respiratory Rate 18 18 18 Blood Pressure Pulse Oximetry 96 98 04/13/20 00:00 04/13/20 02:27 04/13/20 02:30 Temperature 35.9 C L Pulse Rate 54 L 59 L 59 L Respiratory Rate 16 15 18 Blood Pressure 135/54 L Pulse Oximetry 100 97 04/13/20 02:35 04/13/20 04:00 04/13/20 07:37 Temperature 36.2 C L Pulse Rate 60 56 L 63 Respiratory Rate 18 16 15 Blood Pressure 148/56 H Pulse Oximetry 98 99 04/13/20 07:45 04/13/20 07:48 04/13/20 08:00 Temperature Pulse Rate 63 57 L Respiratory Rate 18 Blood Pressure Pulse Oximetry 98 04/13/20 08:37 04/13/20 08:38 04/13/20 10:00 Temperature 35.9 C L Pulse Rate 66 66 60 Respiratory Rate 20 Blood Pressure 150/55 H Pulse Oximetry 99 Intake/Output Intake/Output: Intake & Output 04/10/20 04/11/20 04/12/20 04/13/20 23:59 23:59 23:59 23:59 Intake Total 1745 830 50 0 Output Total 800 2500 4450 400 Balance 945 -1670 -4400 -400 Meds/Results Medications: Active Medications Generic Name Dose Route Start Last Admin Trade Name Freq PRN Reason Stop Dose Admin Acetaminophen 650 mg 04/06/20 11:28 04/11/20 13:58 Acetaminophen 325 Mg Tablet PO 650 mg Q4H PRN Administration mild to moderate pain Amiodarone HCl 400 mg 04/07/20 17:00 04/13/20 08:37 Amiodarone Hcl 200 Mg Tablet PO 400 mg BID JANKI Administration Apixaban 2.5 mg 04/12/20 09:00 04/13/20 08:37 Apixaban 2.5 Mg Tablet PO 2.5 mg Q12HR JANKI Administration Brimonidine Tartrate 1 drop 03/29/20 23:45 04/13/20 08:38 Brimonidine Tartrate 0.2% Op Soln 5 Ml Btl EACH EYE 1 drop Q12HR JANKI Administration Budesonide 1 puff 04/09/20 20:00 04/13/20 07:38 Budesonide 90 Mcg/Puff Flexhaler INHALATION 1 puff Q12HRT JANKI Administration
[2020-04-13] MEDS: guaiFENesin 200 MG/10 ML UDC PO (15:15)
[2020-04-13 16:32] LABS: Glucose Point of Care 253 (65-105)
[2020-04-13] MEDS: INSULIN ASPART (*BKC) 100 UNITS/ML SUB-Q (16:40)
--- NOTE | 2020-04-13 17:38 | PM.IMPN ---
Progress Note: A&P Assessment and Plan (1) Pulmonary hypertension: Onset Date: Unknown Code(s): I27.20 - Pulmonary hypertension, unspecified Status: Acute Assessment and Plan: On CPAP at night time (2) QT prolongation: Code(s): R94.31 - Abnormal electrocardiogram [ECG] [EKG] Status: Acute Assessment and Plan: Continue to monitor (3) Acute respiratory failure: Code(s): J96.00 - Acute respiratory failure, unspecified whether with hypoxia or hypercapnia Status: Acute Assessment and Plan: Resolved (4) Diastolic congestive heart failure: Code(s): I50.30 - Unspecified diastolic (congestive) heart failure Status: Acute Assessment and Plan: Appears to have stabilized (5) Syncope: Code(s): R55 - Syncope and collapse Status: Resolved Assessment and Plan: Outside of the hospital must likely secondary to cardiac origin (6) Cardiac arrest: Code(s): I46.9 - Cardiac arrest, cause unspecified Status: Acute Assessment and Plan: Outside of hospital ROSC within 3 minutes (7) MARC (acute kidney injury): Code(s): N17.9 - Acute kidney failure, unspecified Status: Acute Assessment and Plan: Requiring HD Apprecaite Nephrology note (8) Atrial fibrillation with rapid ventricular response: Code(s): I48.91 - Unspecified atrial fibrillation Status: Acute Assessment and Plan: Converted to sinus rhythm (9) Body mass index (BMI) of 50-59.9 in adult: Onset Date: 11/27/18 Code(s): Z68.43 - Body mass index [BMI] 50.0-59.9, adult Status: Acute Assessment and Plan: Calorie consistent diet (10) KIERRA (obstructive sleep apnea): Code(s): G47.33 - Obstructive sleep apnea (adult) (pediatric) Status: Acute Assessment and Plan: CPAP at night time. Subjective Date/time seen: 04/13/20 17:39 States that she feels fine Review of Systems Review of Systems: Narrative: No complains at this time Exam Narrative: Exam Narrative: Lying in bed Const: General: no acute distress, alert, awake, Physically active and tired appearing Nutritional Appearance: other (Morbid obesity) Orientation/consciousness: patient oriented x3 HENMT: Head: normocephalic Ears: hearing grossly normal bilaterally General nose exam: Normal external nose present Face and sinus: normal facial exam Eyes: General: appearance normal, both eyes and all related structures Pupils: Equal, round and reactive pupils present EOM: EOMs intact bilaterally Neck: Neck: no lymphadenopathy, supple and no JVD Resp: Effort & Inspection: able to speak in complete sentences Auscultation: wheezes and diminished lung sounds Cardio: Rate: regular rate Rhythm: regular rhythm GI: Inspection: Pannus present and obesity GI Palp: Yes Soft to palpation and Yes No hepatosplenomegaly present Skin: Lesions: no lesions Rashes: no rashes Wounds: wounds noted (Tuneled catheter in ) Neuro: General: patient oriented x3 and CN's II-XI intact bilaterally Cranial nerves: Yes CN's II-XII intact bilaterally and Yes Equal, round and reactive pupils present Cognition (Neuro): normal cognition Motor exam (neuro): 5/5 motor strength present throughout Extrem: General: edema bilateral (Ankle) Objective Data Vital Signs Vital Signs: Vital Signs - 24 hr 04/12/20 20:00 04/12/20 21:34 04/12/20 21:39 Temperature 97.1 F L Pulse Rate 58 L 59 L 58 L Respiratory Rate 16 18 Blood Pressure 128/47 L Pulse Oximetry 99 04/12/20 21:46 04/12/20 21:48 04/12/20 22:00 Temperature Pulse Rate 58 L 62 63 Respiratory Rate 18 18 18 Blood Pressure Pulse Oximetry 96 98 04/13/20 00:00 04/13/20 02:27 04/13/20 02:30 Temperature 96.7 F L Pulse Rate 54 L 59 L 59 L Respiratory Rate 16 15 18 Blood Pressure 135/54 L Pulse Oximetry 100 97 04/13/20 02:35 04/13/20 04:00 04/13/20 07:37 [place]
[2020-04-13] MEDS: METOPROLOL TARTRATE 25 MG TABLET 75 MG PO (21:20)
[2020-04-13] MEDS: SIMVASTATIN 20 MG TABLET PO (21:20)
[2020-04-13] MEDS: INSULIN GLARGINE (*BKC) 100 UNITS/ML 21 UNITS SUB-Q (21:32)
[2020-04-13 22:05] LABS: Glucose Point of Care 234 (65-105)
[2020-04-14] VITALS (38 sets, daily range): BP systolic 102–171; BP diastolic 53–94; PULSE 53–153; RESP 16–24; TEMP 36.1–37.7; O2SAT 95–100
[2020-04-14] MEDS: LEVALBUTEROL NEB 1.25 MG/3 ML 0.63 MG INHALATION ×3 (02:32→20:18)
[2020-04-14 07:28] LABS: Glucose Point of Care 172 (65-105)
--- NOTE | 2020-04-14 08:06 | PC.NURSE ---
To dialysis room per bed. Report given to TARSHA Law.
--- NOTE | 2020-04-14 08:14 | PCOTNOTE ---
OT re-assess attempted. Patient leaving room with nursing to go to Dialysis. Will attempt later in day.
[2020-04-14] MEDS: AMIODARONE HCL 200 MG TABLET 400 MG PO ×2 (08:53→17:30)
[2020-04-14] MEDS: METOPROLOL TARTRATE 25 MG TABLET 75 MG PO ×2 (08:53→21:06)
[2020-04-14] MEDS: HEPARIN SODIUM 1,000 UNITS/ML VIAL 1000 UNITS IV PUSH (11:36)
--- NOTE | 2020-04-14 11:51 | PC.NURSE ---
Returned from dialysis. Report received from TARSHA Law.
--- NOTE | 2020-04-14 11:55 | PCNFU ---
Nutrition Follow-Up Complete: Inadequate oral intake related to oral intubation as evidenced by NPO status. Goal: Patient to meet estimated nutritional needs. Progressing towards goal. We will continue current goal. Pt current nutrition is DBCC. Last recorded weight is 158.2 kg,140.9 kg on admit. Bowel Motility:+Bm report / Labs Reviewed:no new labs to report. Meds Noted:Lopressor, Pacerone Additional Notes: Nutrition follow up. Dialysis today. Oral Intake: 0-50% of meals. Diet supplement of Nepro added BID providing an additional 425 kcals and 19 gms protein. Cpap at night. PO intake is encouraged. Monitoring: weight, labs, meds, oral intake every 5 days.
--- NOTE | 2020-04-14 11:55 | PM.PNNEP ---
Progress Note: A&P Assessment and Plan (1) MARC (acute kidney injury): Code(s): N17.9 - Acute kidney failure, unspecified Status: Acute Assessment and Plan: suspet a combination of severe pulmonary hypertension leading to chronic pre renal azotemia on top of UTI complicated by underlying kidney disease given lack of improvement in kidney function, I once again discussed the possiblity of doing a renal biopsy with patient -- she is still unsure about this and would like to talk to her family and requested I talk with her brother which I will attempt to do Urine output somewhat better (it seems) HD today with possible treatment tomorrow continue to watch for renal recovery (2) CKD (chronic kidney disease): Qualifiers: Chronic kidney disease stage: unspecified stage Qualified Code(s): N18.9 - Chronic kidney disease, unspecified Code(s): N18.9 - Chronic kidney disease, unspecified Status: Chronic Assessment and Plan: baseline creatinine runs ~ 1.8 - 2.0mg/dl likely due to hypertension and diabetes (3) Cardiac arrest: Code(s): I46.9 - Cardiac arrest, cause unspecified Status: Acute Assessment and Plan: Cardiology following continue supportive therapy (4) Acute respiratory failure: Code(s): J96.00 - Acute respiratory failure, unspecified whether with hypoxia or hypercapnia Status: Acute Assessment and Plan: doing better fluid removal with HD check CXR to assess fluid status (5) Essential hypertension: Onset Date: Unknown Code(s): I10 - Essential (primary) hypertension Status: Chronic Assessment and Plan: reasonable control continue current medications this may improve further with fluid removal with HD (6) Diabetes mellitus: Onset Date: Unknown Qualifiers: Chronic kidney disease stage: stage 3 (moderate) Chronic kidney disease stage 3 subtype: unspecified whether 3a or 3b Diabetes mellitus complication detail: with chronic kidney disease Diabetes mellitus complication status: with kidney complications Diabetes mellitus manager intermediate insulin use: with manager intermediate use Diabetes mellitus type: type 2 Qualified Code(s): E11.22 - Type 2 diabetes mellitus with diabetic chronic kidney disease; N18.30 - Chronic kidney disease, stage 3 unspecified; 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 Subjective Date/time seen: 04/14/20 11:55 Tolerating dialysis at the time of my visit - actually just finished treatment (seen on HD at 11:20AM); no new issues or problems to report at this time; better urine output noted in the last 24 hours; still going in/out of atrial fibrillation; no events overnight or earlier this AM. Exam Narrative: Exam Narrative: General: WD/WN AA female in NAD Heart: normal S1 and S2, tachycardic Lungs: decreased at bases Abdomen: soft, nontender, nondistended, positive bowel sounds Extremities: no cyanosis or clubbing; 1+ edema Skin: warm and dry Objective Data Vital Signs Vital Signs: Vital Signs Temp Pulse Resp BP Pulse Ox 04/14/20 11:30 37.2 C 120 H 16 169/68 H 04/14/20 11:23 119 H 137/62 04/14/20 11:15 107 H 118/85 04/14/20 11:00 104 H 152/66 H 04/14/20 10:45 112 H 131/67 04/14/20 10:30 102 H 133/59 L 04/14/20 10:15 98 120/53 L 04/14/20 10:00 125 H 162/71 H 04/14/20 09:45 129 H 150/80 H 04/14/20 09:30 111 H 153/83 H 04/14/20 09:15 120 H 156/77 H 04/14/20 09:00 133 H 142/74 H 04/14/20 08:53 148 H 04/14/20 08:45 122 H 161/78 H 04/14/20 08:30 123 H 152/94 H 04/14/20 08:21 126 H 171/91 H 04/14/20 08:15 36.7 C 130 H 16 167/70 H 04/14/20 08:00 120 H 04/14/20 07:40 58
[2020-04-14 11:57] LABS: Glucose Point of Care 124 (65-105)
[2020-04-14] MEDS: PANTOPRAZOLE 40 MG TABLET PO (12:32)
[2020-04-14] MEDS: APIXABAN 2.5 MG TABLET PO ×2 (12:32→21:07)
[2020-04-14] MEDS: BRIMONIDINE TARTRATE 0.2% OP SOLN 5 ML BTL 1 DROP EACH EYE ×2 (12:33→21:10)
[2020-04-14] MEDS: TIMOLOL MALEATE 0.5% OP SOLN 5 ML BOTTLE 1 DROP EACH EYE ×2 (12:33→21:10)
--- NOTE | 2020-04-14 13:37 | PM.PNCARD ---
Progress Note: A&P Additional Plan 69-year-old woman with: Paroxysmal atrial fibrillation which is driven by massive obesity/obstructive sleep apnea hypoventilation syndrome. She is now being loaded with oral amiodarone and still going between sinus and atrial fibrillation. In sinus yesterday back in atrial fibrillation today. She is currently on amiodarone at 800 mg daily which we will continue. Patient also has acute renal failure in is in the hospital for that reason primarily. Hopefully she will settle down into sinus rhythm and be compliant with PAP therapy and at some point amiodarone may be able to be discontinued alternatively if this fails she and certainly be managed with simple rate control and anticoagulation. Eric Hall MD [facility] Subjective Date/time seen: 04/14/20 13:37 Interval history: no acute events Tele: Patient went from sinus rhythm back to atrial fibrillation earlier today. Heart rate 100-110 patient is totally asymptomatic of unaware of this. Exam Narrative: Exam Narrative: Alert oriented x2-3, appears more fatigued. Lying supine in bed, audible wheezing. Cooperative, no obvious distress Const: General: comfortable and no acute distress; No confusion Orientation/consciousness: oriented to person, oriented to place ( several details given presentation with arrest she cannot recall) and No confusion Other: Able to lie flat HENMT: General nose exam: Normal nares present and no epistaxis Mouth: Yes moist mucous membranes Eyes: Sclera: sclerae normal Pupils: Equal, round and reactive pupils present Neck: Neck: supple and no JVD Thyroid: thyroid normal Carotids: no bruits Lymphatic: lymphadenopathy not noted Other: Unable to assess JVD given her body habitus Resp: Effort & Inspection: normal respiratory effort Auscultation: clear to auscultation bilaterally, wheezes expiratory wheezes and lung sounds not diminished Other: No chest wall tenderness Cardio: Rate: regular rate and tachycardic Rhythm: regular rhythm and abnormal rhythm irregularly irregular Heart sounds: no gallops, no murmurs and no rubs Other: decreased but present DP pulses. GI: Inspection: non-distended Auscultation: normal bowel sounds Other: Morbidly obese abdomen Urinary Catheter: Urinary Catheter: patent and draining and urine clear Skin: General skin exam: normal color, rashes and/or lesions noted and no erythema Other: Warm Neuro: General: oriented to person, oriented to place ( several details given presentation with arrest she cannot recall) and No confusion Cranial nerves: Yes Equal, round and reactive pupils present Cognition (Neuro): normal cognition Speech: normal speech Other: No obvious focal deficit or facial asymmetry Extrem: General: normal to inspection and no edema Other: Normal capillary refills Intact distal pulses. Psych: Mental Status: mental status grossly abnormal Objective Data Vital Signs Vital Signs: Vital Signs - 24 hr 04/13/20 14:00 04/13/20 15:10 04/13/20 16:00 Temperature 36.2 C L Pulse Rate 62 57 L Respiratory Rate 20 Blood Pressure 153/71 H Pulse Oximetry 100 98 04/13/20 16:38 04/13/20 17:51 04/13/20 17:58 Temperature Pulse Rate 60 68 64 Respiratory Rate 22 H 22 H Blood Pressure Pulse Oximetry 04/13/20 18:00 04/13/20 20:00 04/13/20 20:33 Temperature 36.1 C L 36.1 C L Pulse Rate 63 61 71 Respiratory Rate 20 20 20 Blood Pressure 158/61 H 156/53 H Pulse Oximetry 100 94 97 04/13/20 21:00 04/13/20 21:20 04/13/20 22:55 Temperature Pulse Rate 91 65 Respiratory Rate 17 Blood Pressure Pulse Oximetry 92 94 04/14/20 00:00 04/14/20 02:32 04/14/20 02:40 Temperature 36.1 C L Pulse Rate 54 L 61 60 Respiratory Rate 20 17 18 Blood Pressure 141/56 H Pulse Oximetry 97 98 04/14/20 04:00 04/14/20 05:58 04/14/20 07:40 Temperature 36.4 C L Pulse Rate 53 L 53 L 58 L Respiratory Rate 20 Blood Pressure 149/54
--- NOTE | 2020-04-14 14:24 | PM.IMPN ---
Progress Note: A&P Assessment and Plan (1) Pulmonary hypertension: Onset Date: Unknown Code(s): I27.20 - Pulmonary hypertension, unspecified Status: Acute Assessment and Plan: On supplemental oxygen while in the hospital not at home. (2) QT prolongation: Code(s): R94.31 - Abnormal electrocardiogram [ECG] [EKG] Status: Acute Assessment and Plan: Continue to monitor Avoid drugs with potential for QT prolongation. (3) Acute respiratory failure: Code(s): J96.00 - Acute respiratory failure, unspecified whether with hypoxia or hypercapnia Status: Acute Assessment and Plan: On supplemental oxygen CPAP at night time (4) Diastolic congestive heart failure: Code(s): I50.30 - Unspecified diastolic (congestive) heart failure Status: Acute Assessment and Plan: Stable (5) Syncope: Code(s): R55 - Syncope and collapse Status: Resolved Assessment and Plan: Likely secondary to cardiac cause No new events (6) Cardiac arrest: Code(s): I46.9 - Cardiac arrest, cause unspecified Status: Acute Assessment and Plan: Outside of hospital cardiac arrest On Telemetry (7) MARC (acute kidney injury): Code(s): N17.9 - Acute kidney failure, unspecified Status: Acute Assessment and Plan: Now requiring HD Appreciate Nephrology note (8) Atrial fibrillation with rapid ventricular response: Code(s): I48.91 - Unspecified atrial fibrillation Status: Acute Assessment and Plan: Rate controlled On Amiodarone Started on Eliquis (9) Body mass index (BMI) of 50-59.9 in adult: Onset Date: 11/27/18 Code(s): Z68.43 - Body mass index [BMI] 50.0-59.9, adult Status: Acute Assessment and Plan: Lifestyle and diet modifications Calorie restricted diet (10) KIERRA (obstructive sleep apnea): Code(s): G47.33 - Obstructive sleep apnea (adult) (pediatric) Status: Acute Assessment and Plan: CPAP at night time. (11) Restrictive lung disease: Code(s): J98.4 - Other disorders of lung Status: Acute Assessment and Plan: Secondary to morbid obesity Subjective Date/time seen: 04/14/20 14:24 Patient states that she feels well. Review of Systems Review of Systems: Narrative: no new complains Constitutional: Comments: no fevers, no rigors no chills Cardiovascular: Comments: no chest pain. Respiratory: Comments: no sob, no cough, no sputum production. Gastrointestinal: Comments: no n/v/abdominal pain. Musculoskeletal: Comments: no joint pain. Integumentary/Breasts: Comments: no rashes Neurologic: Comments: no sensory motor deficit Exam Narrative: Exam Narrative: Lying in bed Const: General: comfortable, no acute distress and other (Chronically ill looking) Nutritional Appearance: other (Morbid obesity.) HENMT: Head: normal to inspection and normocephalic Ears: hearing grossly normal bilaterally General nose exam: Normal external nose present Face and sinus: normal facial exam Mouth: Yes Normal oral and palatal mucosa present Eyes: General: appearance normal, both eyes and all related structures Pupils: Equal, round and reactive pupils present EOM: EOMs intact bilaterally Neck: Neck: no lymphadenopathy, supple and no JVD Resp: Auscultation: clear to auscultation bilaterally and diminished lung sounds Cardio: Rhythm: abnormal rhythm irregularly irregular GI: GI Palp: Yes Soft to palpation and Yes No hepatosplenomegaly present Skin: Rashes: no rashes Wounds: no wounds Neuro: General: patient oriented x3 and CN's II-XI intact bilaterally Cranial nerves: Yes CN's II-XII intact bilaterally and Yes Bilaterally intact EOM present Speech: normal speech Motor exam (neuro): 5/5 motor strength present throughout Extrem: General: edema bilateral (ankle) Objective Data Vital Signs Vital Signs: Vital Signs - 24 hr 04/13/20
[2020-04-14 16:50] LABS: Glucose Point of Care 179 (65-105)
[2020-04-14 18:28] LABS: SARS-CoV-2 RNA PCR Negative
[2020-04-14] MEDS: INSULIN GLARGINE (*BKC) 100 UNITS/ML 21 UNITS SUB-Q (21:03)
[2020-04-14] MEDS: SIMVASTATIN 20 MG TABLET PO (21:07)
[2020-04-14 21:14] LABS: Glucose Point of Care 165 (65-105)
[2020-04-15] VITALS (41 sets, daily range): BP systolic 129–162; BP diastolic 50–105; PULSE 53–131; RESP 16–22; TEMP 36.1–37.6; O2SAT 93–100
[2020-04-15] MEDS: LEVALBUTEROL NEB 1.25 MG/3 ML 0.63 MG INHALATION ×4 (01:52→20:30)
[2020-04-15] MEDS: METOPROLOL TARTRATE INJ 5 MG/5 ML VIAL IV PUSH (02:07)
[2020-04-15 07:57] LABS: Glucose Point of Care 132 (65-105)
[2020-04-15 09:40] LABS: Hematocrit 32.3 % (37.0-47.0); Hemoglobin 10.3 g/dL (12.0-15.0); Mean Corpuscular HGB Conc 31.9 g/dl (32-36); Mean Corpuscular Hemoglobin 25.4 pg (26-34); Mean Corpuscular Volume 79.8 fl (80-100); Mean Platelet Volume 10.9 fl (7.4-10.4); Platelet Count Result 216 k/mm3 (150-375); Red Blood Count 4.05 M/mm3 (4.2-5.4); Red Cell Distribution Width 15.6 % (11.5-14.5); White Blood Count 7.8 K/mm3 (4.5-10.0)
[2020-04-15] MEDS: APIXABAN 2.5 MG TABLET PO (09:42)
[2020-04-15] MEDS: PANTOPRAZOLE 40 MG TABLET PO (09:42)
[2020-04-15] MEDS: AMIODARONE HCL 200 MG TABLET 400 MG PO ×2 (09:42→16:31)
[2020-04-15] MEDS: TIMOLOL MALEATE 0.5% OP SOLN 5 ML BOTTLE 1 DROP EACH EYE ×2 (09:43→20:28)
[2020-04-15] MEDS: METOPROLOL TARTRATE 25 MG TABLET 75 MG PO ×2 (09:43→20:26)
[2020-04-15] MEDS: BRIMONIDINE TARTRATE 0.2% OP SOLN 5 ML BTL 1 DROP EACH EYE ×2 (09:44→20:28)
[2020-04-15 09:49] LABS: Anion Gap 4 mmol/L (8-16); Blood Urea Nitrogen 25 mg/dL (7-17); Calcium 8.7 mg/dL (8.4-10.2); Carbon Dioxide 32 mmol/L (22-30); Chloride 105 mmol/L (98-107); Estimated CRCL calculation 27 ml/min; Estimated Glomerular Filt Rate 23; Glucose 135 mg/dL (65-105); Potassium 3.7 mmol/L (3.4-5.0); Sodium 141 mmol/L (137-145)
[2020-04-15] MEDS: ACETAMINOPHEN 325 MG TABLET 650 MG PO ×2 (10:44→21:06)
--- NOTE | 2020-04-15 11:42 | PM.PNNEP ---
Progress Note: A&P Assessment and Plan (1) MARC (acute kidney injury): Code(s): N17.9 - Acute kidney failure, unspecified Status: Acute Assessment and Plan: suspet a combination of severe pulmonary hypertension leading to chronic pre renal azotemia on top of UTI complicated by underlying kidney disease urine output somewhat better (it seems) HD today and plan renal biopsy tomorrow continue to watch for renal recovery (2) CKD (chronic kidney disease): Qualifiers: Chronic kidney disease stage: unspecified stage Qualified Code(s): N18.9 - Chronic kidney disease, unspecified Code(s): N18.9 - Chronic kidney disease, unspecified Status: Chronic Assessment and Plan: baseline creatinine runs ~ 1.8 - 2.0mg/dl likely due to hypertension and diabetes (3) Cardiac arrest: Code(s): I46.9 - Cardiac arrest, cause unspecified Status: Acute Assessment and Plan: Cardiology following continue supportive therapy (4) Acute respiratory failure: Code(s): J96.00 - Acute respiratory failure, unspecified whether with hypoxia or hypercapnia Status: Acute Assessment and Plan: doing better fluid removal with HD check CXR to assess fluid status (5) Essential hypertension: Onset Date: Unknown Code(s): I10 - Essential (primary) hypertension Status: Chronic Assessment and Plan: reasonable control continue current medications this may improve further with fluid removal with HD (6) Diabetes mellitus: Onset Date: Unknown Qualifiers: Diabetes mellitus type: type 2 Diabetes mellitus detention insulin use: with detention use Diabetes mellitus complication status: with kidney complications Diabetes mellitus complication detail: with chronic kidney disease Chronic kidney disease stage: stage 3 (moderate) Chronic kidney disease stage 3 subtype: unspecified whether 3a or 3b Qualified Code(s): E11.22 - Type 2 diabetes mellitus with diabetic chronic kidney disease; N18.30 - Chronic kidney disease, stage 3 unspecified; Z79.4 - terminal computer operator (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 Subjective Date/time seen: 04/15/20 11:42 Tolerated dialysis yesterday without any issues or problems; feels reasonably well today; after discussion with her family, she is agreeable to renal biopsy; no other acute issues/events overnight or this AM; sitting up in chair at the time of my visit in no acute distress. Exam Narrative: Exam Narrative: General: WD/WN AA female in NAD Heart: normal S1 and S2, tachycardic Lungs: decreased at bases Abdomen: soft, nontender, nondistended, positive bowel sounds Extremities: no cyanosis or clubbing; 1+ edema Skin: warm and intact Objective Data Vital Signs Vital Signs: Vital Signs Temp Pulse Resp BP Pulse Ox 04/15/20 10:04 93 04/15/20 09:55 112 H 20 04/15/20 09:45 108 H 20 04/15/20 09:43 122 H 04/15/20 09:42 122 H 04/15/20 08:51 36.1 C L 113 H 18 143/86 H 100 04/15/20 06:00 36.4 C 115 H 20 146/77 H 98 04/15/20 04:00 131 H 04/15/20 02:07 128 H 04/15/20 02:00 36.3 C L 113 H 18 153/60 H 96 04/15/20 01:58 124 H 22 H 96 04/15/20 01:52 116 H 22 H 04/15/20 01:10 36.1 C L 118 H 20 155/105 H 100 04/15/20 00:00 116 H 04/14/20 22:00 36.6 C 114 H 21 H 115/58 L 100 04/14/20 21:06 130 H 04/14/20 20:27 98 20 04/14/20 20:21 98 20 98 04/14/20 20:19 111 H 20 04/14/20 20:00 129 H 98 04/14/20 18:25 36.5 C 108 H 21 H 139/74 100 04/14/20 17:30 118 H 04/14/20 16:00 134 H 04/14/20 14:54 36.6 C 111 H 24 H 102/60 98 04/14/20 14:37 70 20 04/14/20 14:30 68 20 04/14/20 12:00 36.3 C L 12
[2020-04-15 11:46] LABS: Glucose Point of Care 148 (65-105)
--- NOTE | 2020-04-15 12:12 | PM.IMPN ---
Progress Note: A&P Assessment and Plan (1) Pulmonary hypertension: Onset Date: Unknown Code(s): I27.20 - Pulmonary hypertension, unspecified Status: Acute Assessment and Plan: On supplemental oxygen while in the hospital not at home. (2) QT prolongation: Code(s): R94.31 - Abnormal electrocardiogram [ECG] [EKG] Status: Acute Assessment and Plan: Avoid drugs with potential for QT prolongation. (3) Acute respiratory failure: Code(s): J96.00 - Acute respiratory failure, unspecified whether with hypoxia or hypercapnia Status: Acute Assessment and Plan: On supplemental oxygen CPAP at night time (4) Diastolic congestive heart failure: Code(s): I50.30 - Unspecified diastolic (congestive) heart failure Status: Acute Assessment and Plan: Stable (5) Syncope: Code(s): R55 - Syncope and collapse Status: Resolved Assessment and Plan: Likely secondary to cardiac cause (6) Cardiac arrest: Code(s): I46.9 - Cardiac arrest, cause unspecified Status: Acute Assessment and Plan: Outside of hospital cardiac arrest On Telemetry (7) MARC (acute kidney injury): Code(s): N17.9 - Acute kidney failure, unspecified Status: Acute Assessment and Plan: Now requiring HD today creat is 2.5 Nephrology rounding Secondary to pre renal azotremia secondary to cardiac arrest and pulmonary HTN (8) Atrial fibrillation with rapid ventricular response: Code(s): I48.91 - Unspecified atrial fibrillation Status: Acute Assessment and Plan: Rate controlled was AF wit RVr on admission On Amiodarone Started on Eliquis (9) Body mass index (BMI) of 50-59.9 in adult: Onset Date: 11/27/18 Code(s): Z68.43 - Body mass index [BMI] 50.0-59.9, adult Status: Acute Assessment and Plan: Weight loss (10) KIERRA (obstructive sleep apnea): Code(s): G47.33 - Obstructive sleep apnea (adult) (pediatric) Status: Acute Assessment and Plan: CPAP at night time. (11) Restrictive lung disease: Code(s): J98.4 - Other disorders of lung Status: Acute Assessment and Plan: Secondary to morbid obesity (12) Physical deconditioning: Code(s): R53.81 - Other malaise Status: Acute Assessment and Plan: Pt will benefit from rehab once kidneys are stable Subjective Date/time seen: 04/15/20 12:12 Interval history: 69-year-old morbidly obese female with atrial fibrillation, chronic kidney disease, hypertension, and sleep apnea who presented to the emergency department earlier today via EMS from home in cardiac arrest. was initially intubated in ICU is out of ICU now. Pt has history of AF, sleep apnea, DM, CKD, morbid obesity. Seen by cardiology and nephrology Pt was initially having issues with Af with RVR presently pt is needing HD and possible renal biopsy for pre renal azotemia. Pt still feels sob and weak and is needing 1 liter of oxygen. Review of Systems Review of Systems: All systems reviewed & are unremarkable except as noted in HPI and below Exam Narrative: Exam Narrative: Lying in bed Const: General: alert Nutritional Appearance: other (Morbid obesity.) Orientation/consciousness: patient oriented x3 Resp: Auscultation: clear to auscultation bilaterally and wheezes Cardio: Jugular venous distension: no JVD Rhythm: regular rhythm GI: Inspection: obesity Skin: Lesions: no lesions Rashes: no rashes Wounds: wounds noted (Tuneled catheter in ) Neuro: General: patient oriented x3 and CN's II-XI intact bilaterally Cranial nerves: Yes CN's II-XII intact bilaterally, Yes Equal, round and reactive pupils present and Yes Bilaterally intact EOM present Cognition (Neuro): normal cognition Speech: normal speech Motor exam (neuro): 5/5 motor strength present throughout Extrem: General: edema bilateral (ankle) and pedal edema bi
--- NOTE | 2020-04-15 14:45 | PC.NURSE ---
On 04/15/20, the student, [MANUELITO HOLT], provided care and completed [facility] documentation on this patient. I have reviewed the student's documentation and agree with the findings.
[2020-04-15 16:45] LABS: Glucose Point of Care 194 (65-105)
[2020-04-15 20:24] LABS: Hepatitis B Core Ab Total Nonreactive (Nonreactive)
[2020-04-15] MEDS: SIMVASTATIN 20 MG TABLET PO (20:27)
[2020-04-15] MEDS: INSULIN GLARGINE (*BKC) 100 UNITS/ML 21 UNITS SUB-Q (21:00)
[2020-04-15 21:42] LABS: Glucose Point of Care 229 (65-105)
--- NOTE | 2020-04-15 21:43 | PC.NURSE ---
Patient left for dialysis treatment.
[2020-04-15 23:25] LABS: Albumin Level 2.7 g/dL (3.5-5.1); Anion Gap 6 mmol/L (8-16); Blood Urea Nitrogen 28 mg/dL (7-17); Calcium 8.5 mg/dL (8.4-10.2); Carbon Dioxide 30 mmol/L (22-30); Chloride 102 mmol/L (98-107); Estimated CRCL calculation 25 ml/min; Estimated Glomerular Filt Rate 21; Glucose 246 mg/dL (65-105); Potassium 3.9 mmol/L (3.4-5.0); Sodium 138 mmol/L (137-145)
[2020-04-16] VITALS (28 sets, daily range): BP systolic 112–134; BP diastolic 45–70; PULSE 54–94; RESP 16–24; TEMP 35.5–36.6; O2SAT 91–100
[2020-04-16] MEDS: LEVALBUTEROL NEB 1.25 MG/3 ML 0.63 MG INHALATION ×4 (01:55→20:05)
--- NOTE | 2020-04-16 02:26 | PC.NURSE ---
Pt returned from dialysis 04/16/2020 02:05
[2020-04-16 05:53] LABS: INR 1.3; Partial Thromboplastin Time 30.5 SECONDS (22.3-36.8); Prothrombin Time 16.4 Seconds (11.1-14.7)
[2020-04-16 06:09] LABS: Anion Gap 3 mmol/L (8-16); Blood Urea Nitrogen 14 mg/dL (7-17); Calcium 8.5 mg/dL (8.4-10.2); Carbon Dioxide 30 mmol/L (22-30); Chloride 104 mmol/L (98-107); Estimated CRCL calculation 35 ml/min; Estimated Glomerular Filt Rate 32; Glucose 135 mg/dL (65-105); Potassium 3.6 mmol/L (3.4-5.0); Sodium 137 mmol/L (137-145)
[2020-04-16 07:54] LABS: Glucose Point of Care 131 (65-105)
[2020-04-16] MEDS: METOPROLOL TARTRATE 25 MG TABLET 75 MG PO ×2 (09:56→21:00)
[2020-04-16] MEDS: BRIMONIDINE TARTRATE 0.2% OP SOLN 5 ML BTL 1 DROP EACH EYE ×2 (09:56→21:00)
[2020-04-16] MEDS: TIMOLOL MALEATE 0.5% OP SOLN 5 ML BOTTLE 1 DROP EACH EYE ×2 (09:56→21:00)
[2020-04-16] MEDS: AMIODARONE HCL 200 MG TABLET 400 MG PO ×2 (09:56→17:29)
[2020-04-16] MEDS: PANTOPRAZOLE 40 MG TABLET PO (09:57)
--- NOTE | 2020-04-16 11:10 | PM.IMPN ---
Progress Note: A&P Assessment and Plan (1) Pulmonary hypertension: Onset Date: Unknown Code(s): I27.20 - Pulmonary hypertension, unspecified Status: Acute Assessment and Plan: On supplemental oxygen while in the hospital not at home. (2) QT prolongation: Code(s): R94.31 - Abnormal electrocardiogram [ECG] [EKG] Status: Acute Assessment and Plan: Avoid drugs with potential for QT prolongation. (3) Acute respiratory failure: Code(s): J96.00 - Acute respiratory failure, unspecified whether with hypoxia or hypercapnia Status: Acute Assessment and Plan: On supplemental oxygen CPAP at night time (4) Diastolic congestive heart failure: Code(s): I50.30 - Unspecified diastolic (congestive) heart failure Status: Acute Assessment and Plan: Stable (5) Syncope: Code(s): R55 - Syncope and collapse Status: Resolved Assessment and Plan: Likely secondary to cardiac cause (6) Cardiac arrest: Code(s): I46.9 - Cardiac arrest, cause unspecified Status: Acute Assessment and Plan: Outside of hospital cardiac arrest On Telemetry (7) MARC (acute kidney injury): Code(s): N17.9 - Acute kidney failure, unspecified Status: Acute Assessment and Plan: Now requiring HD today creat is 1.9 Nephrology rounding Secondary to pre renal azotremia secondary to cardiac arrest and pulmonary HTN awaiting renal biopsy (8) Atrial fibrillation with rapid ventricular response: Code(s): I48.91 - Unspecified atrial fibrillation Status: Acute Assessment and Plan: Rate controlled was AF wit RVr on admission On Amiodarone Started on Eliquis, which is on hold as pt is awaiting biospy (9) Body mass index (BMI) of 50-59.9 in adult: Onset Date: 11/27/18 Code(s): Z68.43 - Body mass index [BMI] 50.0-59.9, adult Status: Acute Assessment and Plan: Weight loss (10) KIERRA (obstructive sleep apnea): Code(s): G47.33 - Obstructive sleep apnea (adult) (pediatric) Status: Acute Assessment and Plan: CPAP at night time. (11) Restrictive lung disease: Code(s): J98.4 - Other disorders of lung Status: Acute Assessment and Plan: Secondary to morbid obesity, pt will need home oxygen assessment prior to discharge. (12) Physical deconditioning: Code(s): R53.81 - Other malaise Status: Acute Assessment and Plan: Pt will benefit from rehab once kidneys are stable Subjective Date/time seen: 04/16/20 11:10 Interval history: 69-year-old morbidly obese female with atrial fibrillation, chronic kidney disease, hypertension, and sleep apnea who presented to the emergency department earlier today via EMS from home in cardiac arrest. was initially intubated in ICU is out of ICU now. Pt has history of AF, sleep apnea, DM, CKD, morbid obesity. Seen by cardiology and nephrology Pt was having issues with Af with RVR earlier in admission presently pt is needing HD and possible renal biopsy for pre renal azotemia. Pt had dialysis catheter placed, Pt is feeling better pt is going for renal biopsy tomorrow. Review of Systems Review of Systems: All systems reviewed & are unremarkable except as noted in HPI and below Exam Narrative: Exam Narrative: Lying in bed Const: General: alert Nutritional Appearance: other (Morbid obesity.) Orientation/consciousness: patient oriented x3 HENMT: Head: normal to inspection and normocephalic Ears: hearing grossly normal bilaterally General nose exam: Normal external nose present Face and sinus: normal facial exam Mouth: Yes Normal oral and palatal mucosa present Eyes: General: appearance normal, both eyes and all related structures Pupils: Equal, round and reactive pupils present EOM: EOMs intact bilaterally Neck: Neck: no lymphadenopathy, supple and no JVD Lymphatic: no lymphadenopathy noted Resp
--- NOTE | 2020-04-16 12:08 | PM.PNNEP ---
Progress Note: A&P Assessment and Plan (1) MARC (acute kidney injury): Code(s): N17.9 - Acute kidney failure, unspecified Status: Acute Assessment and Plan: suspet a combination of severe pulmonary hypertension leading to chronic pre renal azotemia on top of UTI complicated by underlying kidney disease urine output somewhat better in the last 24 hours plan renal biopsy tomorrow continue to watch for renal recovery (2) CKD (chronic kidney disease): Qualifiers: Chronic kidney disease stage: unspecified stage Qualified Code(s): N18.9 - Chronic kidney disease, unspecified Code(s): N18.9 - Chronic kidney disease, unspecified Status: Chronic Assessment and Plan: baseline creatinine runs ~ 1.8 - 2.0mg/dl likely due to hypertension and diabetes (3) Cardiac arrest: Code(s): I46.9 - Cardiac arrest, cause unspecified Status: Acute Assessment and Plan: Cardiology following continue supportive therapy (4) Acute respiratory failure: Code(s): J96.00 - Acute respiratory failure, unspecified whether with hypoxia or hypercapnia Status: Acute Assessment and Plan: doing better fluid removal with HD follow respiratory status (5) Essential hypertension: Onset Date: Unknown Code(s): I10 - Essential (primary) hypertension Status: Chronic Assessment and Plan: reasonable control continue current medications (6) Diabetes mellitus: Onset Date: Unknown Qualifiers: Diabetes mellitus type: type 2 Diabetes mellitus fpc insulin use: with fpc use Diabetes mellitus complication status: with kidney complications Diabetes mellitus complication detail: with chronic kidney disease Chronic kidney disease stage: stage 3 (moderate) Chronic kidney disease stage 3 subtype: unspecified whether 3a or 3b Qualified Code(s): E11.22 - Type 2 diabetes mellitus with diabetic chronic kidney disease; N18.30 - Chronic kidney disease, stage 3 unspecified; Z79.4 - manager intermediate (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 Subjective Date/time seen: 04/16/20 12:08 Patient appears to be doing reasonably well at this time; tolerated dialysis late yesterday evening without any issues or problems; renal biopsy rescheduled for tomorrow as she needs to be off eliquis x 48 hours; no other acute complains voiced overnight or earlier today. Exam Narrative: Exam Narrative: General: WD/WN AA female in NAD Heart: normal S1 and S2 Lungs: decreased at bases Abdomen: soft, nontender, nondistended, positive bowel sounds Extremities: no cyanosis or clubbing; trace - 1+ edema Skin: warm and intact Objective Data Vital Signs Vital Signs: Vital Signs Temp Pulse Resp BP Pulse Ox 04/16/20 12:00 58 L 04/16/20 10:00 35.5 C L 59 L 20 126/50 L 100 04/16/20 09:56 70 04/16/20 08:19 58 L 20 04/16/20 08:10 58 L 20 98 04/16/20 08:09 58 L 20 04/16/20 08:00 59 L 20 100 04/16/20 06:00 36.2 C L 60 21 H 117/46 L 100 04/16/20 04:00 58 L 04/16/20 02:00 36.2 C L 58 L 21 H 112/45 L 100 04/16/20 01:56 60 20 04/16/20 01:32 36.6 C 58 L 16 133/62 04/16/20 01:14 58 L 121/58 L 04/16/20 00:45 61 125/61 04/16/20 00:15 57 L 131/59 L 04/16/20 00:00 58 L 129/56 L 04/15/20 23:45 57 L 132/63 04/15/20 23:30 57 L 134/58 L 04/15/20 23:15 56 L 150/58 H 04/15/20 23:00 55 L 145/65 H 04/15/20 22:45 53 L 129/62 04/15/20 22:30 54 L 135/61 04/15/20 22:15 54 L 131/56 L 04/15/20 22:00 54 L 140/64 04/15/20 21:46 36.1 C L 58 L 21 H 145/50 H 100 04/15/20 21:45 55 L 162/70 H 04/15/20 21:42 55 L 153/65 H 04/15/20 21:25 36.6 C 55 L 16 140
[2020-04-16 12:34] LABS: Glucose Point of Care 151 (65-105)
--- NOTE | 2020-04-16 14:56 | PCRCNOTE ---
HOME O2 EVAL COMPLETE, NO REQUIREMENTS. PT NON AMBULATORY
[2020-04-16 17:27] LABS: Glucose Point of Care 205 (65-105)
[2020-04-16] MEDS: INSULIN ASPART (*BKC) 100 UNITS/ML SUB-Q (17:28)
[2020-04-16] MEDS: SIMVASTATIN 20 MG TABLET PO (21:02)
[2020-04-16] MEDS: INSULIN GLARGINE (*BKC) 100 UNITS/ML 10 UNITS SUB-Q (21:26)
[2020-04-16 21:33] LABS: Glucose Point of Care 254 (65-105)
[2020-04-17] VITALS (14 sets, daily range): BP systolic 104–132; BP diastolic 40–61; PULSE 54–118; RESP 16–20; TEMP 36.1–36.6; O2SAT 93–100
[2020-04-17 00:16] LABS: Glucose Point of Care 221 (65-105)
[2020-04-17] MEDS: LEVALBUTEROL NEB 1.25 MG/3 ML 0.63 MG INHALATION ×4 (02:19→20:43)
[2020-04-17 06:02] LABS: Anion Gap 3 mmol/L (8-16); Blood Urea Nitrogen 23 mg/dL (7-17); Calcium 8.6 mg/dL (8.4-10.2); Carbon Dioxide 30 mmol/L (22-30); Chloride 106 mmol/L (98-107); Estimated CRCL calculation 22 ml/min; Estimated Glomerular Filt Rate 19; Glucose 225 mg/dL (65-105); Potassium 3.9 mmol/L (3.4-5.0); Sodium 139 mmol/L (137-145)
[2020-04-17 07:48] LABS: Glucose Point of Care 199 (65-105)
[2020-04-17] MEDS: AMIODARONE HCL 200 MG TABLET 400 MG PO ×2 (08:54→16:40)
[2020-04-17] MEDS: METOPROLOL TARTRATE 25 MG TABLET 75 MG PO ×2 (08:54→20:44)
[2020-04-17] MEDS: TIMOLOL MALEATE 0.5% OP SOLN 5 ML BOTTLE 1 DROP EACH EYE ×2 (08:55→20:44)
[2020-04-17] MEDS: PANTOPRAZOLE 40 MG TABLET PO (08:55)
[2020-04-17] MEDS: BRIMONIDINE TARTRATE 0.2% OP SOLN 5 ML BTL 1 DROP EACH EYE ×2 (08:55→20:44)
--- NOTE | 2020-04-17 11:37 | PCNFU ---
Nutrition Follow-Up Complete: Inadequate oral intake related to oral intubation as evidenced by NPO status. Goal: Patient to meet estimated nutritional needs. Patient is progressing towards goal. We will continue current goal. Pt current nutrition is NPO. Last recorded weight is 127 kg, 140.9 kg on admit. Patient is on dialysis. Bowel Motility:Last documented BM 04/12. Labs Reviewed:Glu 225,GFR 19,BUN 23,Cr 3.0 Meds Noted:Protonix, Rocephin Additional Notes: Nutrition follow up. Patient currently NPO for renal biopsy. Patient has been tolerating 50-100% of [facility] diet with Nepro shake BID. Agree with diet orders. Monitoring: weight, labs, oral intake every 5 days.
--- NOTE | 2020-04-17 11:47 | PM.IMPN ---
Progress Note: A&P Assessment and Plan (1) Pulmonary hypertension: Onset Date: Unknown Code(s): I27.20 - Pulmonary hypertension, unspecified Status: Acute Assessment and Plan: CPAP at night no oxyen in the day (2) QT prolongation: Code(s): R94.31 - Abnormal electrocardiogram [ECG] [EKG] Status: Acute Assessment and Plan: Avoid drugs with potential for QT prolongation. (3) Acute respiratory failure: Code(s): J96.00 - Acute respiratory failure, unspecified whether with hypoxia or hypercapnia Status: Acute Assessment and Plan: Secondary to pulmonary HTN and diastolic CHF CPAP at night time (4) Diastolic congestive heart failure: Code(s): I50.30 - Unspecified diastolic (congestive) heart failure Status: Acute Assessment and Plan: Stable (5) Syncope: Code(s): R55 - Syncope and collapse Status: Resolved Assessment and Plan: Likely secondary to cardiac cause (6) Cardiac arrest: Code(s): I46.9 - Cardiac arrest, cause unspecified Status: Acute Assessment and Plan: Outside of hospital cardiac arrest On Telemetry (7) MARC (acute kidney injury): Code(s): N17.9 - Acute kidney failure, unspecified Status: Acute Assessment and Plan: Now requiring HD today creat is 3 Nephrology rounding Secondary to pre renal azotremia secondary to cardiac arrest and pulmonary HTN awaiting renal biopsy (8) Atrial fibrillation with rapid ventricular response: Code(s): I48.91 - Unspecified atrial fibrillation Status: Acute Assessment and Plan: Rate controlled was AF wit RVr on admission On Amiodarone Started on Eliquis, which is on hold as pt is awaiting biospy (9) Body mass index (BMI) of 50-59.9 in adult: Onset Date: 11/27/18 Code(s): Z68.43 - Body mass index [BMI] 50.0-59.9, adult Status: Acute Assessment and Plan: Weight loss (10) KIERRA (obstructive sleep apnea): Code(s): G47.33 - Obstructive sleep apnea (adult) (pediatric) Status: Acute Assessment and Plan: CPAP at night time. (11) Restrictive lung disease: Code(s): J98.4 - Other disorders of lung Status: Acute Assessment and Plan: Secondary to morbid obesity, pt will need home oxygen assessment prior to discharge. (12) Physical deconditioning: Code(s): R53.81 - Other malaise Status: Acute Assessment and Plan: Pt will benefit from rehab once kidneys are stable Subjective Date/time seen: 04/17/20 11:47 Interval history: 69-year-old morbidly obese female with atrial fibrillation, chronic kidney disease, hypertension, and sleep apnea who presented to the emergency department earlier today via EMS from home in cardiac arrest. was initially intubated in ICU is out of ICU now. Pt has history of AF, sleep apnea, DM, CKD, morbid obesity. Seen by cardiology and nephrology during this admission. Pt was having issues with Af with RVR earlier in admission presently pt is needing HD and possible renal biopsy for pre renal azotemia. Pt had dialysis catheter placed. Pt is feeling better pt is going for renal biopsy today. Continue HD in hospital. Review of Systems Review of Systems: All systems reviewed & are unremarkable except as noted in HPI and below Exam Narrative: Exam Narrative: Lying in bed Const: General: alert Nutritional Appearance: other (Morbid obesity.) Orientation/consciousness: patient oriented x3 HENMT: Head: normal to inspection and normocephalic Neck: Neck: no lymphadenopathy, supple and no JVD Lymphatic: no lymphadenopathy noted Resp: Effort & Inspection: able to speak in complete sentences Auscultation: clear to auscultation bilaterally Cardio: Jugular venous distension: no JVD Rate: regular rate and bradycardic Rhythm: regular rhythm GI: Inspection: obesity Skin: Lesions: no lesions Rashes: no rashes
--- NOTE | 2020-04-17 13:20 | PCOTNOTE ---
Attempted OT treatment, pt reports feeling to tired to participate in therapy at this time, will follow and attempt at later time. RN notified
[2020-04-17 13:42] LABS: Glucose Point of Care 188 (65-105)
[2020-04-17] MEDS: guaiFENesin 200 MG/10 ML UDC PO (13:52)
[2020-04-17 16:33] LABS: Glucose Point of Care 182 (65-105)
--- NOTE | 2020-04-17 16:38 | P.PNNP_ITS ---
Progress Note: A&P Assessment and Plan (1) MARC (acute kidney injury): Code(s): N17.9 - Acute kidney failure, unspecified Status: Acute Assessment and Plan: * suspet a combination of severe pulmonary hypertension leading to chronic pre renal azotemia on top of UTI complicated by underlying kidney disease * urine output somewhat better in the last 24 hours * s/p renal biopsy today * follow repeat labs and UOP * continue to watch for renal recovery * possible HD tomorrow (2) CKD (chronic kidney disease): Qualifiers: Chronic kidney disease stage: unspecified stage Qualified Code(s): N18 .9 - Chronic kidney disease, unspecified Code(s): N18.9 - Chronic kidney disease, unspecified Status: Chronic Assessment and Plan: * baseline creatinine runs ~ 1.8 - 2.0mg/dl * likely due to hypertension and diabetes (3) Cardiac arrest: Code(s): I46.9 - Cardiac arrest, cause unspecified Status: Acute Assessment and Plan: * Cardiology following * continue supportive therapy (4) Acute respiratory failure: Code(s): J96.00 - Acute respiratory failure, unspecified whether with hypoxia or hypercapnia Status: Acute Assessment and Plan: * doing better * fluid removal with HD * follow respiratory status (5) Essential hypertension: Onset Date: Unknown Code(s): I10 - Essential (primary) hypertension Status: Chronic Assessment and Plan: * reasonable control * continue current medications (6) Diabetes mellitus: Onset Date: Unknown Qualifiers: Diabetes mellitus type: type 2 Diabetes mellitus senior care insulin 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 Subjective Date/time seen: 04/17/20 16:38 Tolerated ultrasound guided renal biopsy earlier today -- no new issues or problems reported overnight or earlier this AM; no apparent distress noted; slow and steady improvement noted. Exam Narrative: Exam Narrative: General: WD/WN AA female in NAD Heart: normal S1 and S2 Lungs: decreased at bases Abdomen: soft, nontender, nondistended, positive bowel sounds Extremities: no cyanosis or clubbing; trace - 1+ edema Skin: no rash or nodules Objective Data Vital Signs Vital Signs: Vital Signs Temp Pulse Resp BP Pulse Ox 04/17/20 14:59 64 18 04/17/20 14:51 60 18 04/17/20 14:00 36.2 C L 54 L 16 132/54 L 100 04/17/20 11:20 56 L 18 105/45 L 93 04/17/20 09:08 112 H 16 04/17/20 08:59 108 H 16 96 04/17/20 05:50 36.1 C L 101 H 16 104/61 100 04/17/20 02:20 74 19 04/17/20 00:00 36.2 C L 118 H 20 112/58 L 99 04/16/20 22:50 24 H 04/16/20 21:00 94 04/16/20 20:52 36.2 C L 94 20 134/70 100
--- NOTE | 2020-04-17 16:38 | PM.PNNEP ---
Progress Note: A&P Assessment and Plan (1) MARC (acute kidney injury): Code(s): N17.9 - Acute kidney failure, unspecified Status: Acute Assessment and Plan: suspet a combination of severe pulmonary hypertension leading to chronic pre renal azotemia on top of UTI complicated by underlying kidney disease urine output somewhat better in the last 24 hours s/p renal biopsy today follow repeat labs and UOP continue to watch for renal recovery possible HD tomorrow (2) CKD (chronic kidney disease): Qualifiers: Chronic kidney disease stage: unspecified stage Qualified Code(s): N18.9 - Chronic kidney disease, unspecified Code(s): N18.9 - Chronic kidney disease, unspecified Status: Chronic Assessment and Plan: baseline creatinine runs ~ 1.8 - 2.0mg/dl likely due to hypertension and diabetes (3) Cardiac arrest: Code(s): I46.9 - Cardiac arrest, cause unspecified Status: Acute Assessment and Plan: Cardiology following continue supportive therapy (4) Acute respiratory failure: Code(s): J96.00 - Acute respiratory failure, unspecified whether with hypoxia or hypercapnia Status: Acute Assessment and Plan: doing better fluid removal with HD follow respiratory status (5) Essential hypertension: Onset Date: Unknown Code(s): I10 - Essential (primary) hypertension Status: Chronic Assessment and Plan: reasonable control continue current medications (6) Diabetes mellitus: Onset Date: Unknown Qualifiers: Diabetes mellitus type: type 2 Diabetes mellitus halfway insulin use: with watermelon inspector use Diabetes mellitus complication status: with kidney complications Diabetes mellitus complication detail: with chronic kidney disease Chronic kidney disease stage: stage 3 (moderate) Chronic kidney disease stage 3 subtype: unspecified whether 3a or 3b Qualified Code(s): E11.22 - Type 2 diabetes mellitus with diabetic chronic kidney disease; N18.30 - Chronic kidney disease, stage 3 unspecified; Z79.4 - exterminator helper termite (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 Subjective Date/time seen: 04/17/20 16:38 Tolerated ultrasound guided renal biopsy earlier today -- no new issues or problems reported overnight or earlier this AM; no apparent distress noted; slow and steady improvement noted. Exam Narrative: Exam Narrative: General: WD/WN AA female in NAD Heart: normal S1 and S2 Lungs: decreased at bases Abdomen: soft, nontender, nondistended, positive bowel sounds Extremities: no cyanosis or clubbing; trace - 1+ edema Skin: no rash or nodules Objective Data Vital Signs Vital Signs: Vital Signs Temp Pulse Resp BP Pulse Ox 04/17/20 14:59 64 18 04/17/20 14:51 60 18 04/17/20 14:00 36.2 C L 54 L 16 132/54 L 100 04/17/20 11:20 56 L 18 105/45 L 93 04/17/20 09:08 112 H 16 04/17/20 08:59 108 H 16 96 04/17/20 05:50 36.1 C L 101 H 16 104/61 100 04/17/20 02:20 74 19 04/17/20 00:00 36.2 C L 118 H 20 112/58 L 99 04/16/20 22:50 24 H 04/16/20 21:00 94 04/16/20 20:52 36.2 C L 94 20 134/70 100 04/16/20 20:15 63 18 04/16/20 20:05 66 18 94 04/16/20 18:00 36.1 C L 92 18 120/58 L 95 04/16/20 17:29 62 Intake/Output Intake/Output: Intake & Output 04/14/20 04/15/20 04/16/20 04/17/20 23:59 23:59 23:59 23:59 Intake Total 1000 670 890 100 Output Total 4225 1100 3850 Balance -2316 -430 2968 100 Meds/Results Medications: Active Medications Generic Name Dose Route Start Last Admin Trade Name Arenq PRN Reason Stop Dose Admin Acetaminophen 650 mg 04/06/20 11:28 04/15/20 21:06 Acetaminophen 325 Mg Tablet PO 650 mg Q4H PRN Administration
--- NOTE | 2020-04-17 19:41 | PM.PNCARD ---
Progress Note: A&P Assessment and Plan (1) Afib: Code(s): I48.91 - Unspecified atrial fibrillation Status: Acute Assessment and Plan: Continues to have paroxysmal atrial fibrillation sometimes with transient bradycardia upon conversion to sinus rhythm from which she has been symptomatic. Difficult balance as persistent AFib with RVR detrimental as is symptomatic bradycardia. 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 Clinically in sinus rhythm today. Kori has been held for her renal biopsy today 04/17/2020. Resume in a couple days once the risk of bleeding is negligible. Currently taking amiodarone 400 mg b.i.d. but since her heart rate is running in the 60s I will reduce it to 400 mg once a day. Continue to reduce the dose over time, perhaps eventually wean off of it? Will follow as an outpatient. (2) Diastolic congestive heart failure: Code(s): I50.30 - Unspecified diastolic (congestive) heart failure Status: Acute Assessment and Plan: Preserved EF 70% by Echo (3) H/O: HTN (hypertension): Code(s): Z86.79 - Personal history of other diseases of the circulatory system Status: Acute Assessment and Plan: At goal. (4) Pulmonary hypertension: Onset Date: Unknown Code(s): I27.20 - Pulmonary hypertension, unspecified Status: Acute Assessment and Plan: Severe, RVSP 68 mm Hg 03/31/2020. [id number] tricuspid regurgitation mild mitral regurgitation. Pulmonary hypertension most likely secondary to long-standing untreated obstructive sleep apnea, atrial fibrillation not clearly due to valvular pathology. (5) Cardiac arrest: Code(s): I46.9 - Cardiac arrest, cause unspecified Status: Acute Assessment and Plan: Patient suffered a cardiac arrest, apparently was asystolic then had a PEA arrest with brief and successful resuscitation. Etiology is uncertain. No evidence of ventricular arrhythmias, though we have discontinued sotalol on admission. (6) MARC (acute kidney injury): Code(s): N17.9 - Acute kidney failure, unspecified Status: Acute Assessment and Plan: On dialysis still making some urine. (7) QT prolongation: Code(s): R94.31 - Abnormal electrocardiogram [ECG] [EKG] Status: Acute Assessment and Plan: Noted on admission, Resolved. (8) KIERRA (obstructive sleep apnea): Code(s): G47.33 - Obstructive sleep apnea (adult) (pediatric) Status: Acute Assessment and Plan: Longstanding noncompliance with treatment. Tolerating BiPAP this hospitalization. Strongly encourage remain compliant in this regard. Subjective Date/time seen: 04/17/20 19:41 Interval history: Follow-up for atrial fibrillation difficult to control heart rate, cardiac arrest, anticoagulation, amiodarone use. Date of service 04/17/2020: Doing fairly well, working with physical therapy, planning to go to [place] on discharge. Kori has been held for her renal biopsy today, she is making some urine, getting dialysis tomorrow. Review of Systems Constitutional: Constitutional: Reports fatigue and Reports weakness ENT: Denies epistaxis Cardiovascular: Cardiovascular: Denies chest pain, Denies leg edema, Denies lightheadedness and Denies palpitations Respiratory: Respiratory: Denies dyspnea and Denies dyspnea on exertion Gastrointestinal: Gastrointestinal: Denies abdominal pain Genitourinary: Genitourinary: Denies hematuria Musculoskeletal: Musculoskeletal: Reports arthralgias Neurologic: Denies confusion Psychiatric: Psychiatric: Reports no additional psychiatric c
[2020-04-17] MEDS: SIMVASTATIN 20 MG TABLET PO (20:45)
[2020-04-17] MEDS: APIXABAN 2.5 MG TABLET PO (20:45)
[2020-04-17] MEDS: INSULIN GLARGINE (*BKC) 100 UNITS/ML 21 UNITS SUB-Q (21:13)
[2020-04-17 21:33] LABS: Glucose Point of Care 254 (65-105)
[2020-04-18] VITALS (16 sets, daily range): BP systolic 110–146; BP diastolic 45–86; PULSE 53–86; RESP 16–20; TEMP 36.4–36.6; O2SAT 92–100
[2020-04-18] MEDS: LEVALBUTEROL NEB 1.25 MG/3 ML 0.63 MG INHALATION ×3 (02:41→19:46)
[2020-04-18 07:12] LABS: Anion Gap 6 mmol/L (8-16); Blood Urea Nitrogen 30 mg/dL (7-17); Calcium 9.4 mg/dL (8.4-10.2); Carbon Dioxide 29 mmol/L (22-30); Chloride 105 mmol/L (98-107); Estimated CRCL calculation 17 ml/min; Estimated Glomerular Filt Rate 14; Glucose 219 mg/dL (65-105); Phosphorus 4.2 mg/dL (2.5-4.5); Potassium 4.1 mmol/L (3.4-5.0); Sodium 140 mmol/L (137-145)
[2020-04-18 08:04] LABS: Glucose Point of Care 200 (65-105)
[2020-04-18] MEDS: METOPROLOL TARTRATE 25 MG TABLET 75 MG PO ×2 (08:15→20:48)
[2020-04-18] MEDS: APIXABAN 2.5 MG TABLET PO ×2 (08:16→20:48)
[2020-04-18] MEDS: PANTOPRAZOLE 40 MG TABLET PO (08:16)
[2020-04-18] MEDS: TIMOLOL MALEATE 0.5% OP SOLN 5 ML BOTTLE 1 DROP EACH EYE ×2 (08:16→20:48)
[2020-04-18] MEDS: BRIMONIDINE TARTRATE 0.2% OP SOLN 5 ML BTL 1 DROP EACH EYE ×2 (08:17→20:47)
[2020-04-18] MEDS: AMIODARONE HCL 200 MG TABLET 400 MG PO (08:17)
--- NOTE | 2020-04-18 10:28 | PCRCNOTE ---
Window of time for administration has passed. See next scheduled administration.
[2020-04-18 11:49] LABS: Glucose Point of Care 231 (65-105)
[2020-04-18] MEDS: INSULIN ASPART (*BKC) 100 UNITS/ML SUB-Q ×2 (11:57→17:03)
--- NOTE | 2020-04-18 12:45 | PM.IMPN ---
Progress Note: A&P Assessment and Plan (1) Pulmonary hypertension: Onset Date: Unknown Code(s): I27.20 - Pulmonary hypertension, unspecified Status: Acute Assessment and Plan: CPAP at night no oxyen in the day (2) QT prolongation: Code(s): R94.31 - Abnormal electrocardiogram [ECG] [EKG] Status: Acute Assessment and Plan: Avoid drugs with potential for QT prolongation. (3) Acute respiratory failure: Code(s): J96.00 - Acute respiratory failure, unspecified whether with hypoxia or hypercapnia Status: Acute Assessment and Plan: Secondary to pulmonary HTN and diastolic CHF CPAP at night time (4) Diastolic congestive heart failure: Code(s): I50.30 - Unspecified diastolic (congestive) heart failure Status: Acute Assessment and Plan: Stable (5) Syncope: Code(s): R55 - Syncope and collapse Status: Resolved Assessment and Plan: Likely secondary to cardiac cause (6) Cardiac arrest: Code(s): I46.9 - Cardiac arrest, cause unspecified Status: Acute Assessment and Plan: Outside of hospital cardiac arrest On Telemetry Seen by cardiology (7) MARC (acute kidney injury): Code(s): N17.9 - Acute kidney failure, unspecified Status: Acute Assessment and Plan: Now requiring HD today creat is 3.9 Nephrology rounding Secondary to pre renal azotremia secondary to cardiac arrest and pulmonary HTN sp renal biopsy (8) Atrial fibrillation with rapid ventricular response: Code(s): I48.91 - Unspecified atrial fibrillation Status: Acute Assessment and Plan: Rate controlled was AF wit RVr on admission On Amiodarone On [facility] Cardiology rounding (9) Body mass index (BMI) of 50-59.9 in adult: Onset Date: 11/27/18 Code(s): Z68.43 - Body mass index [BMI] 50.0-59.9, adult Status: Acute Assessment and Plan: Weight loss (10) KIERRA (obstructive sleep apnea): Code(s): G47.33 - Obstructive sleep apnea (adult) (pediatric) Status: Acute Assessment and Plan: CPAP at night time. (11) Restrictive lung disease: Code(s): J98.4 - Other disorders of lung Status: Acute Assessment and Plan: Secondary to morbid obesity, pt will need home oxygen assessment prior to discharge. (12) Physical deconditioning: Code(s): R53.81 - Other malaise Status: Acute Assessment and Plan: Pt will benefit from rehab once kidneys are stable Subjective Date/time seen: 04/18/20 12:46 Interval history: 69-year-old morbidly obese female with atrial fibrillation, chronic kidney disease, hypertension, and sleep apnea who presented to the emergency department earlier today via EMS from home in cardiac arrest. was initially intubated in ICU is out of ICU now. Pt has history of AF, sleep apnea, DM, CKD, morbid obesity. Seen by cardiology and nephrology during this admission. Pt was having issues with Af with RVR earlier in admission presently pt is needing HD and possible renal biopsy for pre renal azotemia. Pt had dialysis catheter placed. Pt is feeling better pt is going for renal biopsy yesterday. Pt to have dialysis today. Review of Systems Review of Systems: All systems reviewed & are unremarkable except as noted in HPI and below Exam Const: General: alert Nutritional Appearance: other (Morbid obesity.) Orientation/consciousness: patient oriented x3 Neck: Neck: no lymphadenopathy, supple and no JVD Lymphatic: no lymphadenopathy noted Resp: Effort & Inspection: able to speak in complete sentences Auscultation: clear to auscultation bilaterally Cardio: Jugular venous distension: no JVD Rate: bradycardic GI: Inspection: obesity Skin: Lesions: no lesions Rashes: no rashes Wounds: wounds noted (Tuneled catheter in ) Neuro: General: patient oriented x3 and CN's II-XI intact bilaterally Cranial nerves: Yes CN's
--- NOTE | 2020-04-18 14:49 | PM.PNNEP ---
Progress Note: A&P Assessment and Plan (1) MARC (acute kidney injury): Code(s): N17.9 - Acute kidney failure, unspecified Status: Acute Assessment and Plan: suspet a combination of severe pulmonary hypertension leading to chronic pre renal azotemia on top of UTI complicated by underlying kidney disease urine output somewhat better in the last 24 hours s/p renal biopsy yesterday -- hopefully some preliminary results today - I will try to receive with patient when results available follow repeat labs and UOP (creatinine rising and not making much urine output) continue to watch for renal recovery hold HD today and follow trend -- suspect may need HD tomorrow (2) CKD (chronic kidney disease): Qualifiers: Chronic kidney disease stage: unspecified stage Qualified Code(s): N18.9 - Chronic kidney disease, unspecified Code(s): N18.9 - Chronic kidney disease, unspecified Status: Chronic Assessment and Plan: baseline creatinine runs ~ 1.8 - 2.0mg/dl likely due to hypertension and diabetes (3) Cardiac arrest: Code(s): I46.9 - Cardiac arrest, cause unspecified Status: Acute Assessment and Plan: Cardiology following continue supportive therapy (4) Acute respiratory failure: Code(s): J96.00 - Acute respiratory failure, unspecified whether with hypoxia or hypercapnia Status: Acute Assessment and Plan: doing better fluid removal with HD follow respiratory status (5) Essential hypertension: Onset Date: Unknown Code(s): I10 - Essential (primary) hypertension Status: Chronic Assessment and Plan: reasonable control continue current medications (6) Diabetes mellitus: Onset Date: Unknown Qualifiers: Chronic kidney disease stage: stage 3 (moderate) Chronic kidney disease stage 3 subtype: unspecified whether 3a or 3b Diabetes mellitus complication detail: with chronic kidney disease Diabetes mellitus complication status: with kidney complications Diabetes mellitus nuclear scientist insulin use: with nuclear scientist use Diabetes mellitus type: type 2 Qualified Code(s): E11.22 - Type 2 diabetes mellitus with diabetic chronic kidney disease; N18.30 - Chronic kidney disease, stage 3 unspecified; Z79.4 - location worker (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 Subjective Date/time seen: 04/18/20 14:49 Seems to be doing reasonably well; tolerated renal biopsy yesterday without any issue or problems; no events/issues overnight or earlier this AM; holding dialysis at this time to follow trend of labs and urine output. Exam Narrative: Exam Narrative: General: WD/WN AA female in NAD Heart: normal S1 and S2 Lungs: decreased at bases Abdomen: soft, nontender, nondistended, positive bowel sounds Extremities: no cyanosis or clubbing; trace - 1+ edema Skin: warm and dry Objective Data Vital Signs Vital Signs: Vital Signs Temp Pulse Resp BP Pulse Ox 04/18/20 10:45 36.6 C 80 20 146/77 H 100 04/18/20 08:17 57 L 20 95 04/18/20 08:15 57 L 04/18/20 05:26 36.6 C 55 L 18 136/53 L 100 04/18/20 02:51 53 L 18 04/18/20 02:42 54 L 18 04/18/20 01:48 36.6 C 55 L 16 126/50 L 92 04/18/20 01:30 53 L 18 95 04/17/20 21:53 36.6 C 63 16 123/40 L 93 04/17/20 20:59 62 18 04/17/20 20:44 63 18 93 04/17/20 18:00 36.2 C L 60 16 130/52 L 100 04/17/20 16:40 57 L 04/17/20 14:59 64 18 Intake/Output Intake/Output: Intake & Output 04/15/20 04/16/20 04/17/20 04/18/20 23:59 23:59 23:59 23:59 Intake Total 670 890 800 120 Output Total 1100 3850 200 50 Balance -430 -2960 600 70 Meds/Results Medications: Active Medications Generic Name Dose Route Start Last Admin
[2020-04-18 16:47] LABS: Glucose Point of Care 229 (65-105)
[2020-04-18] MEDS: ACETAMINOPHEN 325 MG TABLET 650 MG PO (17:36)
[2020-04-18] MEDS: SIMVASTATIN 20 MG TABLET PO (20:48)
[2020-04-18] MEDS: INSULIN GLARGINE (*BKC) 100 UNITS/ML 21 UNITS SUB-Q (20:49)
[2020-04-18 20:53] LABS: Glucose Point of Care 249 (65-105)
[2020-04-19] VITALS (27 sets, daily range): BP systolic 129–184; BP diastolic 44–82; PULSE 51–72; RESP 17–20; TEMP 36–37.2; O2SAT 93–100
[2020-04-19] MEDS: LEVALBUTEROL NEB 1.25 MG/3 ML 0.63 MG INHALATION ×3 (02:25→14:16)
[2020-04-19 06:07] LABS: Anion Gap 5 mmol/L (8-16); Blood Urea Nitrogen 38 mg/dL (7-17); Calcium 9.2 mg/dL (8.4-10.2); Carbon Dioxide 28 mmol/L (22-30); Chloride 106 mmol/L (98-107); Estimated CRCL calculation 15 ml/min; Estimated Glomerular Filt Rate 12; Glucose 231 mg/dL (65-105); Potassium 3.9 mmol/L (3.4-5.0); Sodium 139 mmol/L (137-145)
[2020-04-19 08:05] LABS: Glucose Point of Care 203 (65-105)
[2020-04-19] MEDS: INSULIN ASPART (*BKC) 100 UNITS/ML SUB-Q (08:47)
--- NOTE | 2020-04-19 08:50 | PC.NURSE ---
Pt to dialysis per bed.
--- NOTE | 2020-04-19 09:00 | PCPTNOTE ---
The patient treatment was not able to be completed this A.M. due to patient out of room for dialysis. Will plan to continue treatment per plan of care.
--- NOTE | 2020-04-19 09:15 | PCOTNOTE ---
No OT treatment this date; out of room for testing.
[2020-04-19] MEDS: EPOETIN ALFA-EPBX 10,000 UNITS/ML VIAL 5000 UNITS IV PUSH (10:08)
--- NOTE | 2020-04-19 11:45 | PM.PNNEP ---
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; 50-60% tubular atrophy/interstitiial fibrosis; no other acute disease/findings present given her rise in creatinine between dialysis treatments as well as diminished urine output, I think she will need to continue outpatient dialysis for now (2) CKD (chronic kidney disease): Qualifiers: Chronic kidney disease stage: unspecified stage Qualified Code(s): N18.9 - Chronic kidney disease, unspecified Code(s): N18.9 - Chronic kidney disease, unspecified Status: Chronic Assessment and Plan: baseline creatinine runs ~ 1.8 - 2.0mg/dl likely due to hypertension and diabetes (3) Cardiac arrest: Code(s): I46.9 - Cardiac arrest, cause unspecified Status: Acute Assessment and Plan: Cardiology following continue supportive therapy (4) Acute respiratory failure: Code(s): J96.00 - Acute respiratory failure, unspecified whether with hypoxia or hypercapnia Status: Acute Assessment and Plan: doing better fluid removal with HD follow respiratory status (5) Essential hypertension: Onset Date: Unknown Code(s): I10 - Essential (primary) hypertension Status: Chronic Assessment and Plan: reasonable control continue current medications (6) Diabetes mellitus: Onset Date: Unknown Qualifiers: Chronic kidney disease stage: stage 3 (moderate) Chronic kidney disease stage 3 subtype: unspecified whether 3a or 3b Diabetes mellitus complication detail: with chronic kidney disease Diabetes mellitus complication status: with kidney complications Diabetes mellitus truck terminal manager insulin use: with longterm use Diabetes mellitus type: type 2 Qualified Code(s): E11.22 - Type 2 diabetes mellitus with diabetic chronic kidney disease; N18.30 - Chronic kidney disease, stage 3 unspecified; Z79.4 - half-way (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 Subjective Date/time seen: 04/19/20 11:45 Tolerating dialysis at the time of my visit (seen on HD at 11:00AM); no other issues or complaints voiced at this time; feels reasonably well; respiratory status stable. Exam Narrative: Exam Narrative: General: WD/WN AA female in NAD Heart: normal S1 and S2 Lungs: decreased at bases Abdomen: soft, nontender, nondistended, positive bowel sounds Extremities: no cyanosis or clubbing; trace - 1+ edema Skin: warm and dry Objective Data Vital Signs Vital Signs: Vital Signs Temp Pulse Resp BP Pulse Ox 04/19/20 11:45 64 160/66 H 04/19/20 11:30 65 164/63 H 04/19/20 11:15 64 161/64 H 04/19/20 11:00 63 165/66 H 04/19/20 10:30 63 162/67 H 04/19/20 10:15 63 160/74 H 04/19/20 09:45 63 159/72 H 04/19/20 09:30 63 171/73 H 04/19/20 09:15 66 173/74 H 04/19/20 09:00 66 184/82 H 04/19/20 08:05 54 L 20 04/19/20 07:56 53 L 94 04/19/20 07:54 54 L 20 04/19/20 05:39 36.8 C 55 L 18 142/62 H 99 04/19/20 02:34 53 L 20 04/19/20 02:26 51 L 20 04/19/20 02:02 51 L 19 95 04/19/20 02:00 36.7 C 65 18 129/51 L 100 04/18/20 22:00 36.5 C 55 L 18 130/45 L 96 04/18/20 20:48 80 04/18/20 19:56 56 L 20 04/18/20 19:49 53 L 95
--- NOTE | 2020-04-19 11:45 | P.PNNP_ITS ---
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; 50-60% tubular atrophy/interstitiial fibrosis; no other acute disease/findings present * given her rise in creatinine between dialysis treatments as well as diminished urine output, I think she will need to continue outpatient dialysis for now (2) CKD (chronic kidney disease): Qualifiers: Chronic kidney disease stage: unspecified stage Qualified Code(s): N18.9 - Chronic kidney disease, unspecified Code(s): N18.9 - Chronic kidney disease, unspecified Status: Chronic Assessment and Plan: * baseline creatinine runs ~ 1.8 - 2.0mg/dl * likely due to hypertension and diabetes (3) Cardiac arrest: Code(s): I46.9 - Cardiac arrest, cause unspecified Status: Acute Assessment and Plan: * Cardiology following * continue supportive therapy (4) Acute respiratory failure: Code(s): J96.00 - Acute respiratory failure, unspecified whether with hypoxia or hypercapnia Status: Acute Assessment and Plan: * doing better * fluid removal with HD * follow respiratory status (5) Essential hypertension: Onset Date: Unknown Code(s): I10 - Essential (primary) hypertension Status: Chronic Assessment and Plan: * reasonable control * continue current medications (6) Diabetes mellitus: Onset Date: Unknown Qualifiers: Chronic kidney disease stage: stage 3 (moderate) Chronic kidney disease stage 3 subtype: unspecified whether 3a or 3b Diabetes mellitus complication detail: with chronic kidney disease Diabetes mellitus complication status: with kidney complications Diabetes mellitus fpc insulin use: with gallery director use Diabetes mellitus type: type 2 Qualified Code(s): E11.22 - Type 2 diabetes mellitus with diabetic chronic kidney disease; N18.30 - Chronic kidney disease, stage 3 unspecified; Z79.4 - [facility] (current) use of insulin Code(s): E11.9 - Type 2 diabetes mellitus without complications Status: Chronic Assessment and Plan: * follow accuchecks * on SSI Will continue to follow. Subjective Date/time seen: 04/19/20 11:45 Tolerating dialysis at the time of my visit (seen on HD at 11:00AM); no other issues or complaints voiced at this time; feels reasonably well; respiratory status stable. Exam Narrative: Exam Narrative: General: WD/WN AA female in NAD Heart: normal S1 and S2 Lungs: decreased at bases Abdomen: soft, nontender, nondistended, positive bowel sounds Extremities: no cyanosis or clubbing; trace - 1+ edema Skin: warm and dry Objective Data Vital Signs Vital Signs: Vital Signs Temp Pulse Resp BP Pulse Ox 04/19/20 11:45 64 160/66 H 04/19/20 11:30 65 164/63 H 04/19/20 11:15 64 161/64 H 04/19/20 11:00 63 165/66 H 04/19/20 10:30 63 162/67 H 04/19/20 10:15 63 160/74 H
[2020-04-19] MEDS: METOPROLOL TARTRATE 25 MG TABLET 75 MG PO ×2 (12:27→20:03)
[2020-04-19] MEDS: BRIMONIDINE TARTRATE 0.2% OP SOLN 5 ML BTL 1 DROP EACH EYE ×2 (12:29→20:03)
[2020-04-19] MEDS: TIMOLOL MALEATE 0.5% OP SOLN 5 ML BOTTLE 1 DROP EACH EYE ×2 (12:29→20:03)
[2020-04-19] MEDS: AMIODARONE HCL 200 MG TABLET 400 MG PO (12:29)
[2020-04-19] MEDS: APIXABAN 2.5 MG TABLET PO ×2 (12:29→20:04)
[2020-04-19] MEDS: PANTOPRAZOLE 40 MG TABLET PO (12:29)
--- NOTE | 2020-04-19 12:33 | PC.NURSE ---
Pt returned from dialysis.
[2020-04-19 12:59] LABS: Glucose Point of Care 151 (65-105)
--- NOTE | 2020-04-19 14:52 | PM.IMPN ---
Progress Note: A&P Assessment and Plan (1) Pulmonary hypertension: Onset Date: Unknown Code(s): I27.20 - Pulmonary hypertension, unspecified Status: Acute Assessment and Plan: CPAP at night no oxygen in the day (2) QT prolongation: Code(s): R94.31 - Abnormal electrocardiogram [ECG] [EKG] Status: Acute Assessment and Plan: Avoid drugs with potential for QT prolongation. (3) Acute respiratory failure: Code(s): J96.00 - Acute respiratory failure, unspecified whether with hypoxia or hypercapnia Status: Acute Assessment and Plan: Secondary to pulmonary HTN and diastolic CHF CPAP at night time (4) Diastolic congestive heart failure: Code(s): I50.30 - Unspecified diastolic (congestive) heart failure Status: Acute Assessment and Plan: Stable (5) Syncope: Code(s): R55 - Syncope and collapse Status: Resolved Assessment and Plan: Likely secondary to cardiac cause (6) Cardiac arrest: Code(s): I46.9 - Cardiac arrest, cause unspecified Status: Acute Assessment and Plan: Outside of hospital cardiac arrest On Telemetry Seen by cardiology (7) MARC (acute kidney injury): Code(s): N17.9 - Acute kidney failure, unspecified Status: Acute Assessment and Plan: Now requiring HD today creat is 4.4 Nephrology rounding Secondary to pre renal azotremia secondary to cardiac arrest and pulmonary HTN sp renal biopsy (8) Atrial fibrillation with rapid ventricular response: Code(s): I48.91 - Unspecified atrial fibrillation Status: Acute Assessment and Plan: Rate controlled was AF wit RVR on admission On Amiodarone On [facility] Cardiology rounding (9) Body mass index (BMI) of 50-59.9 in adult: Onset Date: 11/27/18 Code(s): Z68.43 - Body mass index [BMI] 50.0-59.9, adult Status: Acute Assessment and Plan: Weight loss (10) KIERRA (obstructive sleep apnea): Code(s): G47.33 - Obstructive sleep apnea (adult) (pediatric) Status: Acute Assessment and Plan: CPAP at night time. (11) Restrictive lung disease: Code(s): J98.4 - Other disorders of lung Status: Acute Assessment and Plan: Secondary to morbid obesity, pt will need home oxygen assessment prior to discharge. (12) Physical deconditioning: Code(s): R53.81 - Other malaise Status: Acute Assessment and Plan: Pt will benefit from rehab once kidneys are stable Subjective Date/time seen: 04/19/20 14:52 Interval history: 69-year-old morbidly obese female with atrial fibrillation, chronic kidney disease, hypertension, and sleep apnea who presented to the emergency department earlier today via EMS from home in cardiac arrest. was initially intubated in ICU is out of ICU now. Pt has history of AF, sleep apnea, DM, CKD, morbid obesity. Seen by cardiology and nephrology during this admission. Pt was having issues with Af with RVR earlier in admission presently pt is needing HD and had renal biopsy for pre renal azotemia. Pt had dialysis catheter placed. Pt had renal biopsy yesterday and dialysis today. Review of Systems Review of Systems: All systems reviewed & are unremarkable except as noted in HPI and below Exam Const: Nutritional Appearance: other (Morbid obesity.) Orientation/consciousness: patient oriented x3 HENMT: Head: normocephalic Neck: Neck: no lymphadenopathy, supple and no JVD Lymphatic: no lymphadenopathy noted Resp: Effort & Inspection: able to speak in complete sentences Auscultation: clear to auscultation bilaterally Cardio: Jugular venous distension: no JVD Rate: regular rate and bradycardic Rhythm: regular rhythm GI: Inspection: obesity Skin: Lesions: no lesions Rashes: no rashes Wounds: wounds noted (Tuneled catheter in ) Neuro: General: patient oriented x3 and CN's II-XI intact bilaterally Cranial nerves:
[2020-04-19 16:12] LABS: Glucose Point of Care 172 (65-105)
[2020-04-19] MEDS: SIMVASTATIN 20 MG TABLET PO (20:03)
[2020-04-19] MEDS: INSULIN GLARGINE (*BKC) 100 UNITS/ML 21 UNITS SUB-Q (20:05)
[2020-04-19 20:19] LABS: Glucose Point of Care 216 (65-105)
[2020-04-20] VITALS (18 sets, daily range): BP systolic 117–147; BP diastolic 31–60; PULSE 51–68; RESP 17–22; TEMP 35.8–36.9; O2SAT 92–100
[2020-04-20] MEDS: LEVALBUTEROL NEB 1.25 MG/3 ML 0.63 MG INHALATION ×4 (01:46→20:02)
[2020-04-20 07:53] LABS: Glucose Point of Care 187 (65-105)
[2020-04-20] MEDS: BRIMONIDINE TARTRATE 0.2% OP SOLN 5 ML BTL 1 DROP EACH EYE ×2 (08:29→20:11)
[2020-04-20] MEDS: METOPROLOL TARTRATE 25 MG TABLET 75 MG PO ×2 (08:29→20:10)
[2020-04-20] MEDS: TIMOLOL MALEATE 0.5% OP SOLN 5 ML BOTTLE 1 DROP EACH EYE ×2 (08:29→20:11)
[2020-04-20] MEDS: APIXABAN 2.5 MG TABLET PO ×2 (08:29→20:10)
[2020-04-20] MEDS: AMIODARONE HCL 200 MG TABLET 400 MG PO (08:29)
[2020-04-20] MEDS: PANTOPRAZOLE 40 MG TABLET PO (08:30)
--- NOTE | 2020-04-20 10:26 | PM.PNCARD ---
Progress Note: A&P Additional Plan Patient clinically is in sinus rhythm. Doing well from that respect. I am going to reduce her amiodarone dosage to 200 mg daily at this time. She is systemically anticoagulated with apixaban. Hopefully renal function will recover. Eric Hall MD [facility] Subjective Date/time seen: Date of service: 04/20/20 10:26 Interval history: Follow-up visit in this 69-year-old lady with paroxysmal atrial fibrillation. Recent transition to treatment with sotalol resulting in cardiac arrest and now being treated with amiodarone. Patient is resting comfortably in bed sleeping upon awakening offers no complaints and is comfortable. Exam Const: General: comfortable and no acute distress HENMT: Mouth: Yes moist mucous membranes Eyes: Sclera: sclerae normal Pupils: Equal, round and reactive pupils present Neck: Neck: supple Resp: Effort & Inspection: normal respiratory effort Auscultation: clear to auscultation bilaterally Cardio: Rate: regular rate Rhythm: regular rhythm GI: GI Palp: Yes Soft to palpation Auscultation: normal bowel sounds Neuro: Cognition (Neuro): normal cognition Objective Data Vital Signs Vital Signs: Vital Signs - 24 hr 04/19/20 10:30 04/19/20 11:00 04/19/20 11:15 Temperature Pulse Rate 63 63 64 Respiratory Rate Blood Pressure 162/67 H 165/66 H 161/64 H Pulse Oximetry 04/19/20 11:30 04/19/20 11:45 04/19/20 12:27 Temperature Pulse Rate 65 64 69 Respiratory Rate Blood Pressure 164/63 H 160/66 H Pulse Oximetry 04/19/20 12:29 04/19/20 12:35 04/19/20 14:00 Temperature 37.0 C 36.8 C Pulse Rate 69 70 64 Respiratory Rate 17 17 Blood Pressure 143/46 H 146/44 H Pulse Oximetry 93 95 04/19/20 14:16 04/19/20 14:21 04/19/20 20:03 Temperature Pulse Rate 54 L 54 L 71 Respiratory Rate 20 20 Blood Pressure Pulse Oximetry 04/19/20 21:13 04/20/20 00:00 04/20/20 01:00 Temperature 37.2 C 36.8 C Pulse Rate 72 57 L 60 Respiratory Rate 20 17 20 Blood Pressure 152/53 H 142/54 H Pulse Oximetry 95 95 97 04/20/20 01:46 04/20/20 01:47 04/20/20 01:54 Temperature Pulse Rate 51 L 57 L 51 L Respiratory Rate 22 H 20 20 Blood Pressure Pulse Oximetry 95 04/20/20 05:00 04/20/20 07:22 04/20/20 07:31 Temperature 36.9 C Pulse Rate 60 62 66 Respiratory Rate 20 20 20 Blood Pressure 141/50 H Pulse Oximetry 99 95 04/20/20 08:29 04/20/20 09:55 Temperature 36.1 C L Pulse Rate 66 63 Respiratory Rate 20 Blood Pressure 117/31 L Pulse Oximetry 94 Intake/Output Intake/Output: Intake & Output 04/17/20 04/18/20 04/19/20 04/20/20 23:59 23:59 23:59 23:59 Intake Total 927 319 0138 0 Output Total 200 325 225 50 Balance 988 369 7375 -50 Meds/Results Medications: Active Medications Generic Name Dose Route Start Last Admin Trade Name Freq PRN Reason Stop Dose Admin Acetaminophen 650 mg 04/06/20 11:28 04/18/20 17:36 Acetaminophen 325 Mg Tablet PO 650 mg Q4H PRN Administration mild to moderate pain Apixaban 2.5 mg 04/12/20 09:00 04/20/20 08:29 Apixaban 2.5 Mg Tablet PO 2.5 mg Q12HR JANKI Administration Brimonidine Tartrate 1 drop 03/29/20 23:45 04/20/20 08:29 Brimonidine Tartrate 0.2% Op Soln 5 Ml Btl EACH EYE 1 drop Q12HR JANKI Administration Budesonide 1 puff 04/09/20 20:00 04/20/20 07:22 Budesonide 90 Mcg/Puff Flexhaler INHALATION 1 puff Q12HRT JANKI Administration Dextrose 12.5 gm 04/02/20 06:15 Dextrose 50% 25 Gm/50 Ml Syringe IV PUSH PRN PRN Hypoglycemia Protocol Glucagon 1 mg 04/02/20 06:15 Glucagon For Inj 1 Mg Vial IM PRN PRN Hypoglycemia Protocol Glucose 15 gm 04/02/20 06:15 Glucose Oral Gel 15 Gm Of Glucse In 37.5 Gm Tube PO PRN PRN Hypoglycemia Protocol Guaifenesin 200 mg 04/06/20 09:10 02/11/21 13:52 Guaifenesin 200 Mg/10 Ml Udc PO 200 mg Q4H PRN Administra
--- NOTE | 2020-04-20 11:33 | PCPTNOTE ---
Patient refused treatment this session stating OT wore me out! I will do what I can tomorrow. PT will continue to follow per plan of care.
--- NOTE | 2020-04-20 11:40 | PM.IMPN ---
Progress Note: A&P Assessment and Plan (1) Pulmonary hypertension: Onset Date: Unknown Code(s): I27.20 - Pulmonary hypertension, unspecified Status: Acute Assessment and Plan: CPAP at night no oxygen in the day 04/20/20 11:40 Patient is 69-year-old woman morbidly obese patientwas seen by Nephrology her creatinine was rising and was not making much urine, and had a renal ultrasound no significant pathology, had a renal biopsy 0n 04/17 which is pending, patient had dialysis on 04/19, is feeling better denies any shortness of breath, patient with atrial fibrillation with RVR seen by forestry hunter was taking amiodarone 400 mg b.i.d. on 04/17 it was reduced down 400mg q.day as patient was fluctuating between sinus rhythm with bradycardia, today patient was seen by forestry hunter again and patient in sinus rhythm rate is stable and amiodarone is reduced to 200 mg q.day to prevent any side effects from amiodarone, anticoagulated with Eliquis, clinically stable will continue to monitor, and may have dialysis tomorrow will follow-up (2) QT prolongation: Code(s): R94.31 - Abnormal electrocardiogram [ECG] [EKG] Status: Acute Assessment and Plan: Avoid drugs with potential for QT prolongation. (3) Acute respiratory failure: Code(s): J96.00 - Acute respiratory failure, unspecified whether with hypoxia or hypercapnia Status: Acute Assessment and Plan: Secondary to pulmonary HTN and diastolic CHF CPAP at night time (4) Diastolic congestive heart failure: Code(s): I50.30 - Unspecified diastolic (congestive) heart failure Status: Acute Assessment and Plan: Stable (5) Syncope: Code(s): R55 - Syncope and collapse Status: Resolved Assessment and Plan: Likely secondary to cardiac cause (6) Cardiac arrest: Code(s): I46.9 - Cardiac arrest, cause unspecified Status: Acute Assessment and Plan: Outside of hospital cardiac arrest On Telemetry Seen by cardiology (7) MARC (acute kidney injury): Code(s): N17.9 - Acute kidney failure, unspecified Status: Acute Assessment and Plan: Now requiring HD today creat is 4.4 Nephrology rounding Secondary to pre renal azotremia secondary to cardiac arrest and pulmonary HTN sp renal biopsy (8) Atrial fibrillation with rapid ventricular response: Code(s): I48.91 - Unspecified atrial fibrillation Status: Acute Assessment and Plan: Rate controlled was AF wit RVR on admission On Amiodarone On [facility] Cardiology rounding (9) Body mass index (BMI) of 50-59.9 in adult: Onset Date: 11/27/18 Code(s): Z68.43 - Body mass index [BMI] 50.0-59.9, adult Status: Acute Assessment and Plan: Weight loss (10) KIERRA (obstructive sleep apnea): Code(s): G47.33 - Obstructive sleep apnea (adult) (pediatric) Status: Acute Assessment and Plan: CPAP at night time. (11) Restrictive lung disease: Code(s): J98.4 - Other disorders of lung Status: Acute Assessment and Plan: Secondary to morbid obesity, pt will need home oxygen assessment prior to discharge. (12) Physical deconditioning: Code(s): R53.81 - Other malaise Status: Acute Assessment and Plan: Pt will benefit from rehab once kidneys are stable Additional Plan Probable arrhythmogenic arrest with syncope due to bradycardia, degrading to PEA. ROSC was achieved within approximately 3 minutes and I was told that she was responding in the emergency department and thus hypothermia protocol was not initiated. Sotalol of course is being held given bradycardia, arrest, and prolonged QTc. [facility] cardiology has been consulted for their recommendations. Dr. May (critical care) has also been consulted and his input is appreciated. Her white blood cell count is a bit elevated and I suspect this is reactive from her arrest. Anju
[2020-04-20 12:48] LABS: Glucose Point of Care 228 (65-105)
[2020-04-20] MEDS: INSULIN ASPART (*BKC) 100 UNITS/ML SUB-Q ×2 (13:15→18:03)
--- NOTE | 2020-04-20 13:15 | P.PNNP_ITS ---
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; 50-60% tubular atrophy/interstitiial fibrosis; no other acute disease/findings present * given her rise in creatinine between dialysis treatments as well as diminished urine output, I think she will need to continue outpatient dialysis on discharge * reportedly going to be on T/T/S schedule so plan next HD treatment on Tuesday (2) CKD (chronic kidney disease): Qualifiers: Chronic kidney disease stage: unspecified stage Qualified Code(s): N18.9 - Chronic kidney disease, unspecified Code(s): N18.9 - Chronic kidney disease, unspecified Status: Chronic Assessment and Plan: * baseline creatinine runs ~ 1.8 - 2.0mg/dl * likely due to hypertension and diabetes (3) Cardiac arrest: Code(s): I46.9 - Cardiac arrest, cause unspecified Status: Acute Assessment and Plan: * Cardiology following * continue supportive therapy (4) Acute respiratory failure: Code(s): J96.00 - Acute respiratory failure, unspecified whether with hypoxia or hypercapnia Status: Acute Assessment and Plan: * doing better * fluid removal with HD * follow respiratory status (5) Essential hypertension: Onset Date: Unknown Code(s): I10 - Essential (primary) hypertension Status: Chronic Assessment and Plan: * reasonable control * continue current medications (6) Diabetes mellitus: Onset Date: Unknown Qualifiers: Diabetes mellitus type: type 2 Diabetes mellitus custodial insulin use: with equipment operator intermodal yard use Diabetes mellitus complication status: with kidney com plications Diabetes mellitus complication detail: with chronic kidney disease Chronic kidney disease stage: stage 3 (moderate) Chronic kidney disease stage 3 subtype: unspecified whether 3a or 3b Qualified Code(s): E11.22 - Type 2 diabetes mellitus with diabetic chronic kidney disease; N18.30 - Chronic kidney disease, stage 3 unspecified; Z79.4 - terminal gauger (current) use of insulin Code(s): E11.9 - Type 2 diabetes mellitus without complications Status: Chronic Assessment and Plan: * follow accuchecks * on SSI Will continue to follow. Subjective Date/time seen: 04/20/20 13:15 She tolerated dialysis reasonably well yesterday without any issues or problems; respiratory status/breathing seems to be doing quite well at this time; no events/issues to report overnight or earlier this AM. Exam Narrative: Exam Narrative: General: WD/WN AA female in NAD Heart: normal S1 and S2 Lungs: decreased at bases Abdomen: soft, nontender, nondistended, positive bowel sounds Extremities: no cyanosis or clubbing; trace - 1+ edema Skin: warm and intact Objective Data Vital Signs Vital Signs: Vital Signs Temp Pulse Resp BP Pulse Ox 04/20/20 09:55 36.1 C L 63 20 117/31 L 94 04/20/20 08:29 66 04/20/20 07:31 66 20 04/20/20 07:22 62 20 95 04/07
--- NOTE | 2020-04-20 13:15 | PM.PNNEP ---
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; 50-60% tubular atrophy/interstitiial fibrosis; no other acute disease/findings present given her rise in creatinine between dialysis treatments as well as diminished urine output, I think she will need to continue outpatient dialysis on discharge reportedly going to be on T/T/S schedule so plan next HD treatment on Tuesday (2) CKD (chronic kidney disease): Qualifiers: Chronic kidney disease stage: unspecified stage Qualified Code(s): N18.9 - Chronic kidney disease, unspecified Code(s): N18.9 - Chronic kidney disease, unspecified Status: Chronic Assessment and Plan: baseline creatinine runs ~ 1.8 - 2.0mg/dl likely due to hypertension and diabetes (3) Cardiac arrest: Code(s): I46.9 - Cardiac arrest, cause unspecified Status: Acute Assessment and Plan: Cardiology following continue supportive therapy (4) Acute respiratory failure: Code(s): J96.00 - Acute respiratory failure, unspecified whether with hypoxia or hypercapnia Status: Acute Assessment and Plan: doing better fluid removal with HD follow respiratory status (5) Essential hypertension: Onset Date: Unknown Code(s): I10 - Essential (primary) hypertension Status: Chronic Assessment and Plan: reasonable control continue current medications (6) Diabetes mellitus: Onset Date: Unknown Qualifiers: Diabetes mellitus type: type 2 Diabetes mellitus medical terminologist insulin use: with [facility] use Diabetes mellitus complication status: with kidney complications Diabetes mellitus complication detail: with chronic kidney disease Chronic kidney disease stage: stage 3 (moderate) Chronic kidney disease stage 3 subtype: unspecified whether 3a or 3b Qualified Code(s): E11.22 - Type 2 diabetes mellitus with diabetic chronic kidney disease; N18.30 - Chronic kidney disease, stage 3 unspecified; Z79.4 - residential (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 Subjective Date/time seen: 04/20/20 13:15 She tolerated dialysis reasonably well yesterday without any issues or problems; respiratory status/breathing seems to be doing quite well at this time; no events/issues to report overnight or earlier this AM. Exam Narrative: Exam Narrative: General: WD/WN AA female in NAD Heart: normal S1 and S2 Lungs: decreased at bases Abdomen: soft, nontender, nondistended, positive bowel sounds Extremities: no cyanosis or clubbing; trace - 1+ edema Skin: warm and intact Objective Data Vital Signs Vital Signs: Vital Signs Temp Pulse Resp BP Pulse Ox 04/20/20 09:55 36.1 C L 63 20 117/31 L 94 04/20/20 08:29 66 04/20/20 07:31 66 20 04/20/20 07:22 62 20 95 04/20/20 05:00 36.9 C 60 20 141/50 H 99 04/20/20 01:54 51 L 20 04/20/20 01:47 57 L 20 04/20/20 01:46 51 L 22 H 95 04/20/20 01:00 36.8 C 60 20 142/54 H 97 04/20/20 00:00 57 L 17 95 04/19/20 21:13 37.2 C 72 20 152/53 H 95 04/19/20 20:03 71 Intake/Output Intake/Output: Intake & Output 04/17/20 04/18/20 04/19/20 04/20/20 23:59 23:59 23:59 23:59 Intake Total 424 549 1006 240 Output Total 200 325 225 50 Balance 525 885 0686 190 Meds/Results Medications: Active Medicati
[2020-04-20 17:18] LABS: Glucose Point of Care 241 (65-105)
[2020-04-20] MEDS: DOCUSATE SODIUM 100 MG CAPSULE PO (18:30)
[2020-04-20] MEDS: SIMVASTATIN 20 MG TABLET PO (20:10)
[2020-04-20] MEDS: INSULIN GLARGINE (*BKC) 100 UNITS/ML 21 UNITS SUB-Q (20:18)
[2020-04-20 20:56] LABS: Glucose Point of Care 229 (65-105)
[2020-04-21] VITALS (10 sets, daily range): BP systolic 144–145; BP diastolic 39–43; PULSE 51–75; RESP 16–20; TEMP 36–36.2; O2SAT 92–98
[2020-04-21] MEDS: LEVALBUTEROL NEB 1.25 MG/3 ML 0.63 MG INHALATION ×3 (02:30→14:02)
[2020-04-21 05:42] LABS: Hematocrit 31.7 % (37.0-47.0); Hemoglobin 10.1 g/dL (12.0-15.0); Mean Corpuscular HGB Conc 31.9 g/dl (32-36); Mean Corpuscular Hemoglobin 25.4 pg (26-34); Mean Corpuscular Volume 79.6 fl (80-100); Mean Platelet Volume 10.9 fl (7.4-10.4); Platelet Count Result 187 k/mm3 (150-375); Red Blood Count 3.98 M/mm3 (4.2-5.4); Red Cell Distribution Width 16.1 % (11.5-14.5); White Blood Count 6.8 K/mm3 (4.5-10.0)
[2020-04-21 06:11] LABS: Chloride 105 mmol/L (98-107); Potassium 3.8 mmol/L (3.4-5.0); Sodium 139 mmol/L (137-145)
[2020-04-21 06:18] LABS: Anion Gap 6 mmol/L (8-16); Blood Urea Nitrogen 34 mg/dL (7-17); Calcium 9.3 mg/dL (8.4-10.2); Carbon Dioxide 28 mmol/L (22-30); Estimated CRCL calculation 14 ml/min; Estimated Glomerular Filt Rate 10; Glucose 261 mg/dL (65-105); Phosphorus 4.2 mg/dL (2.5-4.5)
[2020-04-21] MEDS: INSULIN ASPART (*BKC) 100 UNITS/ML SUB-Q ×2 (07:35→11:23)
[2020-04-21 07:36] LABS: Glucose Point of Care 242 (65-105)
[2020-04-21] MEDS: APIXABAN 2.5 MG TABLET PO (09:14)
[2020-04-21] MEDS: METOPROLOL TARTRATE 25 MG TABLET 75 MG PO (09:14)
[2020-04-21] MEDS: PANTOPRAZOLE 40 MG TABLET PO (09:15)
[2020-04-21] MEDS: TIMOLOL MALEATE 0.5% OP SOLN 5 ML BOTTLE 1 DROP EACH EYE (09:15)
[2020-04-21] MEDS: AMIODARONE HCL 200 MG TABLET PO (09:15)
[2020-04-21] MEDS: BRIMONIDINE TARTRATE 0.2% OP SOLN 5 ML BTL 1 DROP EACH EYE (09:15)
[2020-04-21] MEDS: DOCUSATE SODIUM 100 MG CAPSULE PO (09:16)
[2020-04-21] MEDS: ACETAMINOPHEN 325 MG TABLET 650 MG PO (09:16)
--- NOTE | 2020-04-21 09:57 | PM.IMPN ---
Progress Note: A&P Assessment and Plan (1) Pulmonary hypertension: Onset Date: Unknown Code(s): I27.20 - Pulmonary hypertension, unspecified Status: Acute Assessment and Plan: CPAP at night no oxygen in the day 04/21/20 09:57 Patient is 69-year-old woman morbidly obese patientwas seen by Nephrology her creatinine was rising and was not making much urine, and had a renal ultrasound no significant pathology, had a renal biopsy 0n 04/17 which is pending, patient had dialysis on 04/19, is feeling better denies any shortness of breath, patient with atrial fibrillation with RVR seen by surveyor's assistant was taking amiodarone 400 mg b.i.d. on 04/17 it was reduced down 400mg q.day as patient was fluctuating between sinus rhythm with bradycardia, today patient was seen by surveyor's assistant again and patient in sinus rhythm rate is stable and amiodarone is reduced to 200 mg q.day to prevent any side effects from amiodarone, anticoagulated with Eliquis, clinically stable will continue to monitor, and may have dialysis tomorrow will follow-up. 04/21 on 04/20 patient was seen by Cardiology and decreased amiodarone to 200 mg from 400 mg q.day, patient states feeling better denies any chest pain shortness of breath palpitation, patient did have a BM and feels better, patient was seen by spout tender patient is scheduled dialysis today and further recommendation to follow, patient will continue to work with PT OT (2) QT prolongation: Code(s): R94.31 - Abnormal electrocardiogram [ECG] [EKG] Status: Acute Assessment and Plan: Avoid drugs with potential for QT prolongation. (3) Acute respiratory failure: Code(s): J96.00 - Acute respiratory failure, unspecified whether with hypoxia or hypercapnia Status: Acute Assessment and Plan: Secondary to pulmonary HTN and diastolic CHF CPAP at night time (4) Diastolic congestive heart failure: Code(s): I50.30 - Unspecified diastolic (congestive) heart failure Status: Acute Assessment and Plan: Stable (5) Syncope: Code(s): R55 - Syncope and collapse Status: Resolved Assessment and Plan: Likely secondary to cardiac cause (6) Cardiac arrest: Code(s): I46.9 - Cardiac arrest, cause unspecified Status: Acute Assessment and Plan: Outside of hospital cardiac arrest On Telemetry Seen by cardiology (7) MARC (acute kidney injury): Code(s): N17.9 - Acute kidney failure, unspecified Status: Acute Assessment and Plan: Now requiring HD today creat is 4.4 Nephrology rounding Secondary to pre renal azotremia secondary to cardiac arrest and pulmonary HTN sp renal biopsy (8) Atrial fibrillation with rapid ventricular response: Code(s): I48.91 - Unspecified atrial fibrillation Status: Acute Assessment and Plan: Rate controlled was AF wit RVR on admission [facility] rounding (9) Body mass index (BMI) of 50-59.9 in adult: Onset Date: 11/27/18 Code(s): Z68.43 - Body mass index [BMI] 50.0-59.9, adult Status: Acute Assessment and Plan: Weight loss (10) KIERRA (obstructive sleep apnea): Code(s): G47.33 - Obstructive sleep apnea (adult) (pediatric) Status: Acute Assessment and Plan: CPAP at night time. (11) Restrictive lung disease: Code(s): J98.4 - Other disorders of lung Status: Acute Assessment and Plan: Secondary to morbid obesity, pt will need home oxygen assessment prior to discharge. (12) Physical deconditioning: Code(s): R53.81 - Other malaise Status: Acute Assessment and Plan: Pt will benefit from rehab once kidneys are stable Subjective Date/time seen: 04/21/20 09:57 Patient is 69-year-old woman morbidly obese patientwas seen by Nephrology her creatinine was rising and was not making much urine, and had a renal ultra
--- NOTE | 2020-04-21 10:23 | PM.PNCARD ---
Progress Note: A&P Assessment and Plan (1) Afib: Code(s): I48.91 - Unspecified atrial fibrillation Status: Acute Assessment and Plan: Continues to have paroxysmal atrial fibrillation sometimes with transient bradycardia upon conversion to sinus rhythm from which she has been symptomatic. Difficult balance as persistent AFib with RVR detrimental as is symptomatic bradycardia. 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 Clinically in sinus rhythm today. Amiodarone to 200 mg once daily. Continue to reduce the dose over time, perhaps eventually wean off of it? Will follow as an outpatient. (2) Diastolic congestive heart failure: Code(s): I50.30 - Unspecified diastolic (congestive) heart failure Status: Acute Assessment and Plan: Preserved EF 70% by Echo (3) H/O: HTN (hypertension): Code(s): Z86.79 - Personal history of other diseases of the circulatory system Status: Acute Assessment and Plan: At goal. (4) Pulmonary hypertension: Onset Date: Unknown Code(s): I27.20 - Pulmonary hypertension, unspecified Status: Acute Assessment and Plan: Severe, RVSP 68 mm Hg 03/31/2020. [id number] tricuspid regurgitation mild mitral regurgitation. Pulmonary hypertension most likely secondary to long-standing untreated obstructive sleep apnea, atrial fibrillation not clearly due to valvular pathology. (5) Cardiac arrest: Code(s): I46.9 - Cardiac arrest, cause unspecified Status: Acute Assessment and Plan: Patient suffered a cardiac arrest, apparently was asystolic then had a PEA arrest with brief and successful resuscitation. Etiology is uncertain. No evidence of ventricular arrhythmias, though we have discontinued sotalol on admission. (6) MARC (acute kidney injury): Code(s): N17.9 - Acute kidney failure, unspecified Status: Acute Assessment and Plan: On dialysis still making some urine. (7) QT prolongation: Code(s): R94.31 - Abnormal electrocardiogram [ECG] [EKG] Status: Acute Assessment and Plan: Noted on admission, Resolved. (8) KIERRA (obstructive sleep apnea): Code(s): G47.33 - Obstructive sleep apnea (adult) (pediatric) Status: Acute Assessment and Plan: Longstanding noncompliance with treatment. Tolerating BiPAP this hospitalization. Strongly encourage remain compliant in this regard. Subjective Date/time seen: 04/21/20 10:23 Interval history: Follow-up visit in this 69-year-old lady with paroxysmal atrial fibrillation. Recent transition to treatment with sotalol resulting in cardiac arrest and now being treated with amiodarone. Date of service 04/21/2020: Patient is resting comfortably in bed sleeping upon awakening offers no complaints and is comfortable. Review of Systems Review of Systems: All systems reviewed & are unremarkable except as noted in HPI and below Constitutional: Constitutional: Reports as per HPI, Reports fatigue and Reports weakness Eyes: Eyes: Reports as per HPI and Denies blurry vision ENT: Reports system reviewed and no additional complaints, except as documented, Reports as per HPI and Denies epistaxis Cardiovascular: Cardiovascular: Reports as per HPI, Reports no additional cardiovascular complaints, Denies chest pain, Reports pedal edema, Denies leg edema, Denies lightheadedness, Denies palpitations, Denies dyspnea and Denies dyspnea on exertion Respiratory: Respiratory: Reports as per HPI, Reports no additional respiratory complaints, Reports cough, Denies hemoptysis, Denies dyspnea, Denies dyspnea on exertion a
[2020-04-21 11:23] LABS: Glucose Point of Care 261 (65-105)
--- NOTE | 2020-04-21 12:24 | PM.DS ---
DS: Admitting Diagnosis Admitting Diagnosis Admitting Diagnosis: Chief Complaint: Cardiac arrest. DS: Discharge Diagnosis Discharge Diagnosis (1) Pulmonary hypertension: Onset Date: Unknown Code(s): I27.20 - Pulmonary hypertension, unspecified Status: Acute Assessment and Plan: CPAP at night no oxygen in the day 04/21/20 09:57 Patient is 69-year-old woman morbidly obese patientwas seen by Nephrology her creatinine was rising and was not making much urine, and had a renal ultrasound no significant pathology, had a renal biopsy 0n 04/17 which is pending, patient had dialysis on 04/19, is feeling better denies any shortness of breath, patient with atrial fibrillation with RVR seen by hand braille transcriber was taking amiodarone 400 mg b.i.d. on 04/17 it was reduced down 400mg q.day as patient was fluctuating between sinus rhythm with bradycardia, today patient was seen by hand braille transcriber again and patient in sinus rhythm rate is stable and amiodarone is reduced to 200 mg q.day to prevent any side effects from amiodarone, anticoagulated with Eliquis, clinically stable will continue to monitor, and may have dialysis tomorrow will follow-up. 04/21 on 04/20 patient was seen by Cardiology and decreased amiodarone to 200 mg from 400 mg q.day, patient states feeling better denies any chest pain shortness of breath palpitation, patient did have a BM and feels better, patient was seen by marketing admin patient is scheduled dialysis today and further recommendation to follow, patient will continue to work with PT OT (2) QT prolongation: Code(s): R94.31 - Abnormal electrocardiogram [ECG] [EKG] Status: Acute Assessment and Plan: Avoid drugs with potential for QT prolongation. (3) Acute respiratory failure: Code(s): J96.00 - Acute respiratory failure, unspecified whether with hypoxia or hypercapnia Status: Acute Assessment and Plan: Secondary to pulmonary HTN and diastolic CHF CPAP at night time (4) Diastolic congestive heart failure: Code(s): I50.30 - Unspecified diastolic (congestive) heart failure Status: Acute Assessment and Plan: Stable (5) Syncope: Code(s): R55 - Syncope and collapse Status: Resolved Assessment and Plan: Likely secondary to cardiac cause (6) Cardiac arrest: Code(s): I46.9 - Cardiac arrest, cause unspecified Status: Acute Assessment and Plan: Outside of hospital cardiac arrest On Telemetry Seen by cardiology (7) MARC (acute kidney injury): Code(s): N17.9 - Acute kidney failure, unspecified Status: Acute Assessment and Plan: Now requiring HD today creat is 4.4 Nephrology rounding Secondary to pre renal azotremia secondary to cardiac arrest and pulmonary HTN sp renal biopsy (8) Atrial fibrillation with rapid ventricular response: Code(s): I48.91 - Unspecified atrial fibrillation Status: Acute Assessment and Plan: Rate controlled was AF wit RVR on admission [facility] rounding (9) Body mass index (BMI) of 50-59.9 in adult: Onset Date: 11/27/18 Code(s): Z68.43 - Body mass index [BMI] 50.0-59.9, adult Status: Acute Assessment and Plan: Weight loss (10) KIERRA (obstructive sleep apnea): Code(s): G47.33 - Obstructive sleep apnea (adult) (pediatric) Status: Acute Assessment and Plan: CPAP at night time. (11) Restrictive lung disease: Code(s): J98.4 - Other disorders of lung Status: Acute Assessment and Plan: Secondary to morbid obesity, pt will need home oxygen assessment prior to discharge. (12) Physical deconditioning: Code(s): R53.81 - Other malaise Status: Acute Assessment and Plan: Pt will benefit from rehab once kidneys are stable DS: Summary Hospital Course Reason for hospitalization: Chief Complaint: Cardiac arrest. Narrative: Thi
--- NOTE | 2020-04-21 13:31 | PC.NURSE ---
Per Dr. Downing, patient to discharge with saavedra catheter in place. Updated Steve.
--- NOTE | 2020-04-22 06:31 | WPDCDIQUERY2 ---
CDI Query Clarification Request -Rene catheter inserted 03/29 -On 04/10 Dr Gambino documented Urine appears cloudy, patient complains of dysuria/itching. send urinalysis and microscopy. - Urine culture grew >100,000 E coli -Ceftriaxone IV ordered 04/[address] Fletcher and continued thru 04/20. Please clarify if there is a possible corresponding diagnosis for above findings. <Libby Holm RN - Last Filed: 04/22/20 06:42> Clarified Diagnosis (1) UTI (urinary tract infection): Code(s): N39.0 - Urinary tract infection, site not specified <Libby Holm RN - Last Filed: 04/22/20 06:42> Status: Acute <Libby Holm RN - Last Filed: 04/22/20 06:42> Assessment and Plan: Patient with c/o of dysuria, urine culture grew E coli and sensitive to Rocephin and treated. patient symptoms improved. <Fay Downing MD - Last Filed: 05/07/20 10:41>
== END 2020-04-21 14:30 | DRG 296 ==
LOC: ANHED 19:08 → ANHICU 19:37 → ANHCPC 04-07 13:56 → ANHICU 04-10 09:13 → ANH2MED 04-14 07:34 → ANHCPC 04-24 10:29 → ANHICU 04-24 10:29 → ANHIMU 04-24 10:29
PROVIDERS: Family Medicine; Internal Medicine; Internal Medicine Cardiovascular Disease; Internal Medicine Nephrology; Physician Assistant; Surgery; Admitting Provider Internal Medicine; Emergency Provider Family Medicine; PCP Family Medicine; Visit Provider Family Medicine
PROC: (CPT 36908; principal; 2020-04-09 13:45)
PROC: 05HM33Z Insertion of Infusion Device into Right Internal Jugular Vein, Percutaneous Approach (ICD-10-PCS; CPT 36908; principal; 2020-04-11 10:00)
DX: I46.9 Cardiac arrest, cause unspecified (principal); J96.00 Acute respiratory failure, unspecified whether with hypoxia or hypercapnia; I13.0 Hypertensive heart and chronic kidney disease with heart failure and stage 1 through stage 4 chronic kidney disease, or unspecified chronic kidney disease; N18.4 Chronic kidney disease, stage 4 (severe); I50.32 Chronic diastolic (congestive) heart failure; Z68.42 Body mass index [BMI] 45.0-49.9, adult; N17.9 Acute kidney failure, unspecified; R94.31 Abnormal electrocardiogram [ECG] [EKG]; T44.7X5A Adverse effect of beta-adrenoreceptor antagonists, initial encounter; E11.9 Type 2 diabetes mellitus without complications; I10 Essential (primary) hypertension; E11.22 Type 2 diabetes mellitus with diabetic chronic kidney disease; E66.01 Morbid (severe) obesity due to excess calories; G47.33 Obstructive sleep apnea (adult) (pediatric); I48.91 Unspecified atrial fibrillation; Z79.01 Long term (current) use of anticoagulants; I27.20 Pulmonary hypertension, unspecified; Z91.19 Patient's noncompliance with other medical treatment and regimen; G47.36 Sleep related hypoventilation in conditions classified elsewhere; Z20.822 Contact with and (suspected) exposure to COVID-19
CPT/HCPCS: 31500; 36415; 36556; 36600; 50200; 51702; 70450; 71045; 71250; 76942; 77001; 80048; 80053; 80069; 81001; 82375; 82570; 82728; 82805; 82948; 83036; 83050; 83605; 83735; 83880; 84100; 84156; 84300; 84484; 85025; 85027; 85610; 85730; 86704; 86706; 86803; 87040; 87077; 87086; 87088; 87186; 87340; 88300; 88305; 88313; 88329; 88346; 88348; 88350; 92610; 93005; 94002; 94003; 94618; 94640; 96361; 96374; 96375; 97110; 97116; 97161; 97164; 97165; 97168; 97530; 97535; 99215; 99291; A9270; C1750; C1751; C8929; C9803; G0257; G0463; J0282; J0330; J0690; J0696; J1644; J1815; J1940; J2250; J2405; J2704; J2930; J2997; J3010; J7030; J7040; J7050; J7120; Q5106; Q9957; U0003; U0005

== ENCOUNTER 2020-05-22 00:21 | Inpatient (IN) | payer MEDICARE, OTHER, SELFPAY ==
[2020-05-22] VITALS (22 sets, daily range): BP systolic 102–165; BP diastolic 60–81; PULSE 80–152; RESP 12–22; TEMP 36.4–37.1; O2SAT 94–100; BMI 41.7
--- NOTE | ~2020-05-22 | XR_ITS ---
EXAMINATION: XR chest 1V portable DATE: 05/22/2020 01:31 INDICATION: COVID-19 pneumonia. Acute respiratory failure. TECHNIQUE: A single frontal view of the chest was obtained. COMPARISON: Chest single view 04/11/2020, chest CT 03/30/2020 FINDINGS: The chest demonstrates clear lungs without pneumonia, pleural effusion, or pneumothorax. Th e heart size is normal. There are prominent paracardial fat pads. A right internal jugular central ve nous catheter is seen with tip in the superior vena cava. IMPRESSION: 1. No acute cardiopulmonary disease. Reviewed, dictated and finalized at location A.
--- NOTE | ~2020-05-22 | US_ITS ---
EXAMINATION: US venous doppler [facility] DATE: 05/23/2020 15:04 INDICATION: Hypoxia. TECHNIQUE: Grayscale ultrasound images without and with compression and Doppler ultrasound images of the bilateral lower extremity veins were obtained. COMPARISON: Ultrasound 11/30/2017 FINDINGS: The visualized portions of right common femoral vein, profunda (deep) femoral vein, femoral vein, pop liteal vein, peroneal veins, posterior tibial veins, and greater saphenous vein outflow are patent. The visualized portions of left common femoral vein, profunda femoral vein, femoral vein, popliteal v ein, peroneal veins, posterior tibial veins, and greater saphenous vein outflow are patent. IMPRESSION: 1. No deep venous thrombosis. Reviewed, dictated and finalized at location A.
--- NOTE | ~2020-05-22 | XR_ITS ---
EXAMINATION: XR chest 1V portable DATE: 05/23/2020 05:50 INDICATION: COVID-19 pneumonia. TECHNIQUE: A single frontal view of the chest was obtained. COMPARISON: Chest single view 05/22/2020, chest CT 03/30/2020 FINDINGS: There is no pneumonia, pleural effusion, or pneumothorax. Cardiomegaly is noted. A right in ternal jugular central venous catheter is seen with tip in the superior vena cava. IMPRESSION: 1. Cardiomegaly. Reviewed, dictated and finalized at location A. IMPRESSION: 1. Cardiomegaly.
--- OUTSIDE RECORDS SUMMARY | 2020-05-22 00:58 | XMS_ITS ---
:1950 Author Care Team Providers Name Role Phone DR. GARRISON AGUIRRE Primary Care Provider [phone] DR. GARRISON AGUIRRE Referring Provider [phone] DR. GARRISON VARGAS Primary Care Provider [phone] DR. GARRISON VARGAS Referring Provider [phone] Allergies Code Code System Name Reaction Severity Status Onset NKDA ? Medications Name Status Start Date Stop Date ? ? amiodarone 200 mg tablet Active ? Not aretha ilable amlodipine 10 mg tablet Active ? Not avai lable ammonium lactate 12 % lotion Active ? Not available APPLY TO FEET AND LOWER LEGS QD PRN azithromycin 250 mg tablet Completed ? 04/05 benzonatate 100 mg capsule Active ? Not a vailable TK 1 C PO Q 8 H PRN calcitriol 0.25 mcg capsule Active ? Not available ciprofloxacin 250 mg tablet Completed ? 05/05 clopidogrel 75 mg tablet Active ? Not aretha ilable Combigan 0.2 %-0.5 % eye drops Active ? N ot available cyclobenzaprine 10 mg tablet Completed ? cyclobenzaprine 5 mg tablet Completed ? 05/05 doxycycline hyclate 100 mg tablet Active ? Not available doxycycline monohydrate 100 mg capsule Active ? Not available ergocalciferol (vitamin D2) 1,250 mcg (50,000 unit) capsule Acti ve ? Not available TK 1 C PO Q WK ferrous sulfate 325 mg (65 mg iron) tablet Active ? Not available TK 1 T PO BID Flucelvax Quad [id number] (PF) 60 mcg (15 mcg x 4)/0.5 mL IM syri nge Active ? Not available ADM 0.5ML IM UTD
--- OUTSIDE RECORDS SUMMARY | 2020-05-22 00:59 | XMS_ITS ---
:1950 Author Care Team Providers Name Role Phone DR. GARRISNO AGUIRRE Primary Care Provider [phone] DR. GARRISON AGUIRRE Referring Provider [phone] DR. GARRISON VARGAS Primary Care Provider [phone] DR. GARRISON VARGAS Referring Provider [phone] Allergies Code Code System Name Reaction Severity Status Onset NKDA ? Medications Name Status Start Date Stop Date ? ? acetaminophen 300 mg-codeine 30 mg Unknown ? Not available tablet acetazolamide 250 mg tablet Unknown ? Not available amiodarone 200 mg tablet Active ? Not aretha ilable amlodipine Unknown ? Not available amlodipine 10 mg tablet Completed ? 03/21/19 19 amlodipine 5 mg tablet Unknown ? Not avail able TAKE 1 TABLET BY MOUTH DAILY ammonium lactate 12 % lotion Active ? Not available APPLY TO FEET AND LOWER LEGS QD PRN Asprin Ec Low Dose 81 mg tablet,delayed release Active ? Not available Take 1 tablet every day by oral route. azithromycin 250 mg tablet Completed ? 03/21 baclofen 10 mg tablet Unknown ? Not availa ble TK 1 T PO TID benzonatate 100 mg capsule Active ? Not a vailable TK 1 C PO Q 8 H PRN brimonidine 0.2 % eye drops Unknown ? Not available calcitriol 0.25 mcg capsule Completed ? 11/07 ciprofloxacin 0.3 % eye drops Unknown ? No t available ciprofloxacin 250 mg tablet Unknown ? Not available clopidogrel 75 mg tablet Completed ? 019 Combigan 0.2 %-0.5 % eye drops Active
--- NOTE | 2020-05-22 01:19 | ADMGEN ---
This patient, Shaniqua Oakley, was admitted to [facility] Surg Room 332-01. Patient/family oriented to hospital policies and general routines including ID bracelet, bed and alarms, visiting hours, pain management, procedures, bathroom and other care routines, personal items, smoking policy, room service/diet, and visiting hours. Information on how to activate the Rapid Response Team has been discussed. Patient/Family are encouraged to report perceived risks to care and to ask questions if they do not understand what they are told or what they should do.
[2020-05-22 02:02] LABS: Anion Gap 12 mmol/L (8-16); Blood Urea Nitrogen 24 mg/dL (7-17); Calcium 9.3 mg/dL (8.4-10.2); Carbon Dioxide 31 mmol/L (22-30); Chloride 89 mmol/L (98-107); Estimated Glomerular Filt Rate 12; Glucose 230 mg/dL (65-105); Magnesium 1.7 mg/dL (1.6-2.3); Potassium 4.1 mmol/L (3.4-5.0); Sodium 132 mmol/L (137-145)
[2020-05-22 02:03] LABS: Basophils Percent Auto 0.1 % (0.2-1.2); Hematocrit 40.5 % (37.0-47.0); Hemoglobin 12.9 g/dL (12.0-15.0); Immature Granulocyte Absolute 0.04 K/mm3 (0.00-0.031); Immature Granulocyte Percent A 0.5 % (0-0.5); Lymphocytes Absolute Auto 0.61 K/mm3 (0.9-3.2); Mean Corpuscular HGB Conc 31.9 g/dl (32-36); Mean Corpuscular Hemoglobin 25.1 pg (26-34); Mean Corpuscular Volume 78.9 fl (80-100); Mean Platelet Volume 11.1 fl (7.4-10.4); Monocytes Absolute Auto 0.1 K/mm3 (0.1-0.6); Monocytes Percent Auto 1.4 % (2.6-8.5); Platelet Count Result 201 k/mm3 (150-375); Red Blood Count 5.13 M/mm3 (4.2-5.4); Red Cell Distribution Width 16.5 % (11.5-14.5); White Blood Count 8.8 K/mm3 (4.5-10.0)
[2020-05-22] MEDS: ALBUTEROL SULFATE (*SP) INHALER 2 PUFF INHALATION ×4 (02:18→20:42)
--- NOTE | 2020-05-22 03:41 | PM.IMHP ---
H&P: HPI History of Present Illness Date/Time: 05/22/20 03:41 Chief Complaint: Direct admission secondary to hypoxia Narrative: This is a morbidly obese 69-year-old diabetic female with end-stage renal disease on chronic hemodialysis Wednesdays and Fridays and atrial fibrillation on chronic Eliquis therapy who presented to our hospital as a direct admission from [facility] secondary to acute respiratory failure from COVID-19 pneumonia. The patient was recently diagnosed with COVID-19 about a week ago and today after having dialysis the patient was sent to the emergency room for evaluation as she was desaturating. The patient required supplemental oxygen and was treated with bronchodilators and Decadron. The patient was transferred to our facility for further care as there is no hemodialysis available at [facility]. On my encounter with the patient tonight she is resting comfortably on supplemental oxygen and complains of wheezing. She denies any chest pain, palpitations, headache, fever, chills, nausea, vomiting, abdominal pain, dysuria, hematuria, diarrhea, or rectal bleeding. 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 Morbid obesity Obstructive sleep apnea Osteomyelitis Left 5th toe status post amputation. Pulmonary hypertension Moderate pulmonary hypertension with an estimated peak RVSP 56 mmHg on echocardiogram in March 2020. Surgical History Surgical History Amputation of fifth toe of left foot Due to osteomyelitis. History of bilateral cataract extraction Family History Family History Mother , heart attack Diabetes mellitus Father Diabetes mellitus Cerebrovascular accident Leukemia Social History Social History Social History: The patient lives in [place]. 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 She is a lifelong nonsmoker. No alcohol or illicit substance use. Smoking status: Never smoker Alcohol intake: never Substance use: never Gender identity (if verbalized by the patient): Female Spiritual care concerns: No Meds Home Medications and Allergies Home Medications Medication Instructions Recorded Confirmed Type insulin aspar prot-insulin aspart 20 unit SUB-Q BID 03/08/19 05/22/20 History 100 unit/mL (70-30) subcutaneous pen insulin glargine 100 unit/mL (3 30 unit SUB-Q DAILY 03/08/19 05/22/20 History mL) subcutaneous pen simvastatin 20 mg tablet 20 mg PO DAILY 03/08/19 05/22/20 History brimonidine 0.2 %-timolol 0.5 % 1 drop EACH EYE Q12H 05/01/19 05/22/20 History eye drops amiodarone [Pacerone] 200 mg PO DAILY@0800 #30 tablet 04/21/20 05/22/20 Rx apixaban [Eliquis] 2.5 mg PO Q12HR #30 tablet 04/21/20 05/22/20 Rx budesonide [Pulmicort Flexhaler] 1 puff INHALATION Q12HRT #30 ea 04/21/20 05/22/20 Rx metoprolol tartrate 75 mg PO Q12HR #60 tablet 04/21/20 05/22/20 Rx pantoprazole 40 mg PO QAM #30 tablet 04/21/20 05/22/20 Rx albuterol sulfate [Ventolin HFA] 2 puff INHALATION QID PRN 05/22/20 05/22/20 History ferrous sulfate 325 mg PO BID 05/22/20 05/22/20 History lo
[2020-05-22] MEDS: IPRATROPIUM BR 0.02% INH SOLN 0.5 MG/2.5 ML VIAL 1 MG INHALATION (03:50)
[2020-05-22] MEDS: ALBUTEROL SULFATE NEB 2.5 MG/0.5 ML INH 10 MG INHALATION (03:50)
[2020-05-22 05:27] LABS: Glucose Point of Care 252 (65-105)
[2020-05-22 08:22] LABS: Glucose Point of Care 276 (65-105)
[2020-05-22] MEDS: METOPROLOL TARTRATE 25 MG TABLET 75 MG PO ×2 (08:49→20:41)
[2020-05-22] MEDS: FERROUS SULFATE 324 MG TABLET PO ×2 (08:50→17:43)
[2020-05-22] MEDS: APIXABAN 2.5 MG TABLET PO ×2 (08:50→20:42)
[2020-05-22] MEDS: AMIODARONE HCL 200 MG TABLET PO (08:50)
[2020-05-22] MEDS: PANTOPRAZOLE 40 MG TABLET PO (08:50)
[2020-05-22] MEDS: SIMVASTATIN 20 MG TABLET PO (08:50)
[2020-05-22] MEDS: LOSARTAN POTASSIUM 100 MG TABLET PO (08:50)
[2020-05-22] MEDS: BRIMONIDINE TARTRATE 0.2% OP SOLN 5 ML BTL 1 DROP EACH EYE ×2 (08:51→20:41)
[2020-05-22] MEDS: TIMOLOL MALEATE 0.5% OP SOLN 5 ML BOTTLE 1 DROP EACH EYE ×2 (08:51→20:41)
[2020-05-22] MEDS: DEXAMETHASONE SOD PHOS INJ 4 MG/ML VIAL 6 MG IV PUSH (08:51)
[2020-05-22] MEDS: INSULIN GLARGINE (*BKC) 100 UNITS/ML 30 UNITS SUB-Q (08:52)
--- NOTE | 2020-05-22 09:44 | PM.CNNEP ---
Assessment and Plan Assessment and plan (1) ESRD (end stage renal disease) on dialysis: Code(s): N18.6 - End stage renal disease; Z99.2 - Dependence on renal dialysis Status: Chronic Assessment and Plan: The patient has end-stage kidney disease. She Had dialysis yesterday. The patient is looking like she has a little volume overloaded. Perhaps because she has not been eating she has lost real weight and the dry weight just has not been adjusted. Her chest x-ray is clear, but I think it is worth trying to get some fluid off because of her symptoms. Will take off extra fluid today to try to get her to feel better. (2) COVID-19: Code(s): U07.1 - COVID-19 Status: Acute Assessment and Plan: The patient has COVID-19. She has loss of taste and smell. It is not clear if this shortness of breath is related to COVID or not. (3) Pulmonary hypertension: Onset Date: Unknown Code(s): I27.20 - Pulmonary hypertension, unspecified Status: Acute Assessment and Plan: The patient has pulmonary hypertension. This is because of her diastolic dysfunction and also because of her sleep apnea. Obesity can do this as well. (4) Diastolic congestive heart failure: Qualifiers: Heart failure chronicity: unspecified Qualified Code(s): I50.30 - Unspecified diastolic (congestive) heart failure Code(s): I50.30 - Unspecified diastolic (congestive) heart failure Status: Chronic Assessment and Plan: Patient has grade 2 diastolic dysfunction. (5) Essential hypertension: Onset Date: Unknown Code(s): I10 - Essential (primary) hypertension Status: Chronic Assessment and Plan: The blood pressure is a bit high. Will see how her blood pressure is after we take the extra fluid off today. 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 Code(s): E11.9 - Type 2 diabetes mellitus without complications Status: Chronic History of Present Illness Reason for Consult Consult date: 05/22/20 Chief Complaint Chief complaint: Hypoxia, COVID History of Present Illness Narrative: Shaniqua is a very pleasant 76 yo Lady who has multiple medical problems including morbid obesity, hypertension, COPD, diabetes, renal failure on dialysis, hyperlipidemia, atrial fibrillation, diastolic congestive heart failure, moderate mitral and tricuspid regurgitation with moderate pulmonary hypertension, sleep apnea on a CPAP machine, and history of osteomyelitis status post left 5th toe amputation. The patient acquired COVID a couple of weeks ago. She did not really have any symptoms. She was on dialysis so she was moved to [facility] where they have a COVID positive shift. She felt fine that whole time except that she did have loss of taste and smell. So she has not been eating very well. It is unclear if she has lost weight or if they are adjusting dry weight to account for that. She went to dialysis yesterday and she did well she says but after dialysis she was short of breath so they had her go to a nearby hospital. There she was diagnosed with hypoxia and was sent to [facility] for direct admission because they do not do dialysis at that hospital. Today the patient is still a little short of breath. She is on oxygen. She is coughing some. She has a hoarse voice. She says that her C
[2020-05-22] MEDS: BENZOCAINE/MENTHOL (*BKC) 18 EA LOZENGE 1 LOZENGE PO (10:49)
[2020-05-22] MEDS: ONDANSETRON INJ 4 MG/2 ML VIAL IV PUSH ×2 (10:49→20:41)
[2020-05-22 12:29] LABS: Glucose Point of Care 293 (65-105)
--- NOTE | 2020-05-22 12:54 | ECG_ITS ---
Measurements Intervals [place] Rate: 150 P: [place]: 0 QRS: -68 QRSD: 125 T: 86 QT: 329 QTc: 520 Interpretive Statements ATRIAL FIBRILLATION WITH RAPID VENTRICULAR RESPONSE LEFT AXIS DEVIATION INTRAVENTRICULAR CONDUCTION DELAY POOR R WAVE PROGRESSION, ANTERIOR LEADS BORDERLINE ST-T WAVE ABNORMALITY- HIGH LATERAL LEADS ABNORMAL ECG Electronically Signed On 05-22-2020 13:27:56 CDT by Garrett Bucio D.O.
[2020-05-22] MEDS: METOPROLOL TARTRATE INJ 5 MG/5 ML VIAL IV PUSH (13:00)
--- NOTE | 2020-05-22 14:22 | PC.NURSE ---
This patient, Shaniqua Oakley, was received from [[id number] ] on 05/22/20 at 1415. Patient/family oriented to unit policies and routines
[2020-05-22] MEDS: AMIODARONE 150 MG/D5W 100 ML 150 MG/100 ML BAG 600 MG IV CONT (14:31)
[2020-05-22] MEDS: AMIODARONE 360 MG/D5W 200 ML 360 MG/200 ML BAG 33.33 MG IV CONT (14:32)
[2020-05-22 14:42] LABS: Glucose Point of Care 306 (65-105)
--- NOTE | 2020-05-22 15:16 | PM.CNCAR ---
Assessment and Plan Assessment and plan (1) Atrial fibrillation with rapid ventricular response: Code(s): I48.91 - Unspecified atrial fibrillation Status: Acute Assessment and Plan: IV amiodarone drip for heart rate control at this time. Hold p.o. regimen for the time being. If able to tolerate resume metoprolol tartrate 75 mg by mouth every 12 hours. Continue Eliquis 2.5 mg every 12 hours. Monitor for bleeding. Goal to transition to oral amiodarone once again was better controlled. Monitor BP closely. Potassium and magnesium stable. No need for enoxaparin DVT prophylaxis while on full systemic anticoagulation with Eliquis. (2) COVID-19: Code(s): U07.1 - COVID-19 Status: Acute Assessment and Plan: Per primary service. She remains on supplemental oxygen but states she is feeling better. COVID-19 isolation precautions. (3) ESRD (end stage renal disease) on dialysis: Code(s): N18.6 - End stage renal disease; Z99.2 - Dependence on renal dialysis Status: Chronic Assessment and Plan: Hemodialysis volume management Per nephrology. (4) Acute respiratory failure with hypoxia: Code(s): J96.01 - Acute respiratory failure with hypoxia Status: Acute Assessment and Plan: Per primary service. Patient stabilized on oxygen supplementation at this time. She remains in isolation for COVID-19. (5) Pulmonary hypertension: Onset Date: Unknown Code(s): I27.20 - Pulmonary hypertension, unspecified Status: Acute Assessment and Plan: Severe by echo March 2020 RVSP 68 mm Hg. Continue treatment of KIERRA with CPAP as tolerated. (6) CHF (congestive heart failure): Qualifiers: Heart failure chronicity: unspecified Heart failure type: unspecified Qualified Code(s): I50.9 - Heart failure, unspecified Code(s): I50.9 - Heart failure, unspecified Status: Acute Assessment and Plan: History of heart failure with preserved ejection fraction. Patient appears to be clinically euvolemic at present. Continue to monitor volume status. History of Present Illness History of Present Illness Consult date/time: Date of service: 05/22/20 15:16 Cardiology consultation request of Dr. Miranda of the [facility] service for my opinion regarding atrial fibrillation with rapid ventricular response. Requesting physician: Charles Miranda MD Consult reason: atrial fibrillation Reason For Visit: Hypoxia, COVID Narrative: Patient is a very pleasant yet complicated 69 year old Afro-C[place] female with a past medical history significant for persistent atrial fibrillation, end-stage renal disease on hemodialysis, chronic heart failure with preserved ejection fraction, diabetes mellitus, hypertension, morbid obesity, obstructive sleep apnea, severe pulmonary hypertension who has been maintained as an outpatient on amiodarone and Eliquis who presented from [facility] as a direct admission secondary to acute respiratory failure from COVID-19 pneumonia. She was diagnosed approximately 1 week ago. Due to worsening respiratory status increased oxygen supplementations his transfer to [facility]. She has been managed with steroids bronchodilator therapy. Early this morning she was nauseous vomiting unable to keep her medications including amiodarone and later today was noted to have rapid ventricular response in atrial fibrillation after the 150s. She was then given IV metoprolol without improvement in her heart rate. Subsequently, she was then transferred to the IMU and we were consulted for management of her AFib with RVR. Patient states she was complaining of worsening shortness of breath prior to admission but now has improved significantly. She denies chest pain or significant shortness of breath presently. Nausea has resolved. No chest pain. Other than feeling weak and tired she has no other new specific complaints at this time. I have ins
--- NOTE | 2020-05-22 16:01 | PM.IMPN ---
Progress Note: A&P Assessment and Plan (1) Atrial fibrillation with RVR: Code(s): I48.91 - Unspecified atrial fibrillation Status: Acute Assessment and Plan: Likely secondary to COVID infection -Pt also threw up her metoprolol this morning which didn't help -Her HR went up to 150 and She received 5mg of lopresser with little help -She was then moved to IMU and cardiology was consulted and recommended amiodarone -Continue to monitor. Pt has no CP (2) Acute respiratory failure with hypoxia: Code(s): J96.01 - Acute respiratory failure with hypoxia Status: Acute Assessment and Plan: Secondary to COVID-19 infection -Continue O2 as needed, currently at 1L -CXR actually looks okay but may worsen over the next few days -PE seems less likely since she takes eliquis. May consider CTA prior to dialysis if she continues to be hypoxic. 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 insulin use: with care home use Diabetes mellitus complication status: with kidney complications Diabetes mellitus complication detail: with chronic kidney disease Chronic kidney disease stage: stage 3 (moderate) Chronic kidney disease stage 3 subtype: unspecified whether 3a or 3b Qualified Code(s): E11.22 - Type 2 diabetes mellitus with diabetic chronic kidney disease; N18.30 - Chronic kidney disease, stage 3 unspecified; Z79.4 - intermediate card tender (current) use of insulin Code(s): E11.9 - Type 2 diabetes mellitus without complications Status: Chronic Assessment and Plan: Last glucose 306 -Likely worse due to steroids -Pt usually on 30u of lantus and 20 u of 70/30 BID -Will increase insulin while on steroids -A1c was 9.6 03/30/20 (6) Essential hypertension: Onset Date: Unknown Code(s): I10 - Essential (primary) hypertension Status: Chronic Assessment and Plan: Last bp 102/74 -Monitor blood pressure. Continue beta usman. (7) Afib: Qualifiers: Atrial fibrillation type: unspecified Qualified Code(s): I48.91 - Unspecified atrial fibrillation Code(s): I48.91 - Unspecified atrial fibrillation Status: Chronic Assessment and Plan: As above, continue amiodarone, metoprolol, and Eliquis. (8) ESRD (end stage renal disease) on dialysis: Code(s): N18.6 - End stage renal disease; Z99.2 - Dependence on renal dialysis Status: Chronic Assessment and Plan: On dialsysis MWF -Nephrology consult Time Spent With Patient Time with patient: 25 - 35 minutes Subjective Date/time seen: 05/22/20 16:01 Interval history: Pt is a 69 y/o female here for COVID and afib RVR. Pt was seen today and states she has had a long day. She is not having SOB but noted her HR being elevated. She overall feels tired. She had some nausea and vomiting earlier today but that has improved and she is now able to tolerate a diet. She denies CP. Review of Systems Review of Systems: All systems reviewed & are unremarkable except as noted in HPI and below Exam Narrative: Exam Narrative: General: Over weight pt resting in bed in NAD HEENT: normocephalic Neck: supple Neuro: Alert and oriented x4 CV:Irregularly irregular with a rate of 130. Tele shows afib RVR with a rate up to 150. Resp:Decreased breath sounds bilaterally, likely d/t body habi
[2020-05-22 17:15] LABS: Glucose Point of Care 338 (65-105)
[2020-05-22 20:33] LABS: Glucose Point of Care 317 (65-105)
[2020-05-23] VITALS (38 sets, daily range): BP systolic 105–167; BP diastolic 49–97; PULSE 48–139; RESP 16–24; TEMP 35.9–36.8; O2SAT 92–100
[2020-05-23 05:24] LABS: Hematocrit 36.9 % (37.0-47.0); Hemoglobin 12.2 g/dL (12.0-15.0); Mean Corpuscular HGB Conc 33.1 g/dl (32-36); Mean Corpuscular Volume 75.6 fl (80-100); Platelet Count Result 204 k/mm3 (150-375); Red Blood Count 4.88 M/mm3 (4.2-5.4); Red Cell Distribution Width 15.9 % (11.5-14.5); White Blood Count 9.2 K/mm3 (4.5-10.0)
[2020-05-23 05:47] LABS: Alanine Aminotransferase 19 U/L (4-35); Albumin Level 3.4 g/dL (3.5-5.1); Alkaline Phosphatase 91 U/L (38-126); Anion Gap 7 mmol/L (8-16); Aspartate Amino Transferase 25 U/L (14-36); Bilirubin,Total 0.7 mg/dL (0.2-1.3); Blood Urea Nitrogen 48 mg/dL (7-17); Calcium 9.2 mg/dL (8.4-10.2); Carbon Dioxide 31 mmol/L (22-30); Chloride 93 mmol/L (98-107); Estimated CRCL calculation 11 ml/min; Estimated Glomerular Filt Rate 8; Glucose 281 mg/dL (65-105); Potassium 4.8 mmol/L (3.4-5.0); Sodium 131 mmol/L (137-145)
--- NOTE | 2020-05-23 08:17 | PC.NURSE ---
Pt on Amiodarone drip yesterday. Order was entered incorrectly and patient only received Amiodarone bolus and one bag at the rate of 1mg/hr. Pt never received the second bag to infuse at 0.5mg/hr. Drip was d/c'd at around 2200 when the current bag was complete with infusion. Dr. Hall informed of situation. New order to start patient on Amiodarone 200mg q12h.
[2020-05-23] MEDS: AMIODARONE HCL 200 MG TABLET PO ×2 (09:10→20:03)
[2020-05-23] MEDS: LOSARTAN POTASSIUM 100 MG TABLET PO (09:11)
[2020-05-23] MEDS: ALBUTEROL SULFATE (*SP) INHALER 2 PUFF INHALATION ×3 (09:11→20:05)
[2020-05-23] MEDS: METOPROLOL TARTRATE 25 MG TABLET 75 MG PO ×2 (09:11→20:04)
[2020-05-23] MEDS: APIXABAN 2.5 MG TABLET PO ×2 (09:11→20:04)
[2020-05-23] MEDS: PANTOPRAZOLE 40 MG TABLET PO (09:11)
[2020-05-23] MEDS: BRIMONIDINE TARTRATE 0.2% OP SOLN 5 ML BTL 1 DROP EACH EYE ×2 (09:12→20:04)
[2020-05-23] MEDS: DEXAMETHASONE SOD PHOS INJ 4 MG/ML VIAL 6 MG IV PUSH (09:12)
[2020-05-23] MEDS: SIMVASTATIN 20 MG TABLET PO (09:12)
[2020-05-23] MEDS: TIMOLOL MALEATE 0.5% OP SOLN 5 ML BOTTLE 1 DROP EACH EYE ×2 (09:12→20:04)
[2020-05-23] MEDS: FERROUS SULFATE 324 MG TABLET PO ×2 (09:12→17:13)
[2020-05-23] MEDS: INSULIN GLARGINE (*BKC) 100 UNITS/ML 36 UNITS SUB-Q (09:13)
--- NOTE | 2020-05-23 10:17 | PM.PNCARD ---
Progress Note: A&P Additional Plan 69-year-old woman with history of paroxysmal atrial fibrillation which is due to morbid obesity hypoventilation sleep apnea syndrome. She now unfortunately has COVID and therefore not surprisingly has persistent atrial fibrillation. I have recommended raising her maintenance dose back to 400 mg daily and observe her telemetry while she is in the hospital. Systemic anticoagulation with low-dose apixaban should be continued. There is no further cardiac evaluation of this that is necessary as she was completely worked up she was just in the hospital for a long time as will be seen by reviewing the previous notes. Prognosis in terms of ability to maintain sinus rhythm in this individual is somewhat limited but we will continue those efforts for now. Eric Hall MD [facility] Subjective Date/time seen: Date of service: 05/23/20 10:17 Interval history: Pt is a 69 y/o female here for COVID and afib RVR. Patient also has end-stage renal disease and is on hemodialysis. This patient was in the hospital here for a long time discharge last month. She has a well-established history of paroxysmal atrial fibrillation. The notes on the chart indicate this is chronic but I do not believe that is correct. She was loaded with amiodarone for a long time during the last hospitalization and upon discharge was still in AFib at some times but predominantly in sinus rhythm. The hope was that she would eventually persistent sinus rhythm the longer she has takes amiodarone. Now in the setting of pelayo virus pneumonia it is obviously not surprising that she has AF with RVR. No specific cardiovascular complaints Exam Narrative: Exam Narrative: General: Very pleasant female appearing very fatigued, otherwise Well developed, alert and oriented x3. No apparent distress, and cooperative. Head: atraumatic, normocephalic Eyes: EOM intact, sclerae anicteric, conjunctivae unremarkable Ears/Nose: external inspection of ears and nose were grossly normal Mouth/Throat: oral mucosa pink and moist Neck: supple, normal range of motion, no jugular venous distention or carotid bruits, thyroid nonpalpable, trachea midline. Cardiac: Tachycardic, irregular irregular rate and rhythm, distant heart sounds normal S1-S2, no appreciable murmurs, Lungs: Diminished breath sounds diffusely, no rales, wheezes, or rhonchi. Abdomen: Obese, Soft, nontender, nondistended, positive bowel sounds throughout. No appreciable hepatosplenomegaly, no rebound guarding or rigidity noted. Abdominal aorta nonpalpable, no appreciable bruits. Extremities: Trace lower extremity edema, clubbing, and or cyanosis. Wrinkled skin. Extremities warm and well perfused. Skin: Warm and dry without ecchymoses, rashes, and/or petechiae. Musculoskeletal: Muscle strength and tone intact throughout without obvious deformities. Vascular: Carotid upstrokes 2+ bilaterally, radial pulses 2+ bilaterally, dorsalis pedis pulses 2+ bilaterally, posterior tibialis pulses palpable bilaterally. Neurologic: Cranial nerves 2-12 grossly intact, examination grossly nonfocal Pscyhiatric: Mood calm and appropriate. Objective Data Vital Signs Vital Signs: Vital Signs - 24 hr 05/22/20 12:00 05/22/20 13:00 05/22/20 14:31 Temperature 37.1 C Pulse Rate 150 H 152 H 139 H Respiratory Rate 22 H Blood Pressure 111/60 Pulse Oximetry 97 05/22/20 14:32 05/22/20 14:43 05/22/20 14:55 Temperature Pulse Rate 139 H 123 H Respiratory Rate Blood Pressure Pulse Oximetry 97 05/22/20 15:25 05/22/20 16:00 05/22/20 17:45 Temperature 36.8 C 37.0 C Pulse Rate 149 H 139 H 130 H Respiratory Rate 18 12 Blood Pressure 102/74 114/60 Pulse Oximetry 99 98 05/22/20 18:00 05/22/20 20:00 05/22/20 20:41 Temperature 36.4 C Pulse Rate 131 H 121 H 115 H Respiratory Rate 20 Blood Pressure 116/75 Pulse Oximet
--- NOTE | 2020-05-23 11:06 | PM.IMPN ---
Progress Note: A&P Assessment and Plan (1) Atrial fibrillation with RVR: Code(s): I48.91 - Unspecified atrial fibrillation Status: Acute Assessment and Plan: Likely secondary to COVID infection -Pt went into RVR this morning likely due to not getting her amiodarone drip overnight -She is not on amiodarone oral and metoprolol -Continue to monitor. Pt has no CP (2) Acute respiratory failure with hypoxia: Code(s): J96.01 - Acute respiratory failure with hypoxia Status: Acute Assessment and Plan: Resolved. Likely secondary to COVID-19 infection although CXR has without infection -pt is now off o2 -CXR actually looks okay but may worsen over the next few days -PE seems less likely since she takes eliquis. May consider CTA prior to dialysis if she becomes hypoxic again. Wells criteria 1.5, less likely. Will order LE u/s to ensure no DVT. (3) COVID-19: Code(s): U07.1 - COVID-19 Status: Acute Assessment and Plan: Stable -Continue Droplet isolation (4) Diastolic congestive heart failure: Qualifiers: Heart failure chronicity: unspecified Qualified Code(s): I50.30 - Unspecified diastolic (congestive) heart failure Code(s): I50.30 - Unspecified diastolic (congestive) heart failure Status: Chronic Assessment and Plan: Chronic -Appears euvolemic at this time -monitor (5) Diabetes mellitus: Onset Date: Unknown Qualifiers: Diabetes mellitus type: type 2 Diabetes mellitus senior living insulin use: with senior living use Diabetes mellitus complication status: with kidney complications Diabetes mellitus complication detail: with chronic kidney disease Chronic kidney disease stage: stage 3 (moderate) Chronic kidney disease stage 3 subtype: unspecified whether 3a or 3b Qualified Code(s): E11.22 - Type 2 diabetes mellitus with diabetic chronic kidney disease; N18.30 - Chronic kidney disease, stage 3 unspecified; Z79.4 - terminal make up operator (current) use of insulin Code(s): E11.9 - Type 2 diabetes mellitus without complications Status: Chronic Assessment and Plan: Last glucose 281 -Likely worse due to steroids -Pt usually on 30u of lantus and 20 u of 70/30 BID -Will increase insulin while on steroids again -A1c was 9.6 03/30/20 (6) Essential hypertension: Onset Date: Unknown Code(s): I10 - Essential (primary) hypertension Status: Chronic Assessment and Plan: Last bp 116/68 -Monitor blood pressure. Continue beta usman. (7) Afib: Qualifiers: Atrial fibrillation type: unspecified Qualified Code(s): I48.91 - Unspecified atrial fibrillation Code(s): I48.91 - Unspecified atrial fibrillation Status: Chronic Assessment and Plan: As above, continue amiodarone, metoprolol, and Eliquis. (8) ESRD (end stage renal disease) on dialysis: Code(s): N18.6 - End stage renal disease; Z99.2 - Dependence on renal dialysis Status: Chronic Assessment and Plan: On dialsysis MWF -Nephrology consult Subjective Date/time seen: 05/23/20 11:06 Interval history: Pt is a 69 y/o female here for COVID and afib RVR. Pt was seen today and states she is doing much better. She is not having any SOB or CP. She is eating and drinking well with no nausea or vomiting. She is off o2 today Exam Narrative: Exam Narrative: General: Over weight pt resting in bed in NAD HEENT: normocephalic Neck: supple Neuro: Alert and oriented x4 CV:Irregularly irregular with a rate of 120 on exam. Tele shows afib RVR with a rate up to 150. Resp:Decreased breath sounds bilaterally, likely d/t body habitus. No wheezing. Abd: Soft, non distended. No pain to palpation. Positive bowel sounds Extremities: No swelling, erythema, or pain to palpation. Objective Data Vital Signs Vital Signs: Vital Signs - 24 hr 05/22/20 12:00 05/22/20 13:00 05/22/20
[2020-05-23 11:47] LABS: Glucose Point of Care 254 (65-105)
[2020-05-23 11:57] LABS: Glucose Point of Care 277 (65-105)
--- NOTE | 2020-05-23 11:59 | ECG_ITS ---
Measurements Intervals [place] Rate: 59 P: 33 GA: 150 QRS: 1 QRSD: 101 T: 83 QT: 572 QTc: 569 Interpretive Statements SINUS BRADYCARDIA POSSIBLE LEFT ATRIAL ENLARGEMENT INCOMPLETE RIGHT BUNDLE BRANCH BLOCK BORDERLINE R WAVE PROGRESSION, ANTERIOR LEADS BORDERLINE ST-T WAVE ABNORMALITY- HIGH LATERAL LEADS PROLONGED QT INTERVAL ABNORMAL ECG Electronically Signed On 05-23-2020 13:46:43 CDT by Garrett Bucio D.O.
--- NOTE | 2020-05-23 12:50 | PC.NURSE ---
Spoke with Bri Cruz PA-C of change in heart rhythm on environmental science program director to 60's. Appears to be sinus melany. 12 lead EKG performed to confirm conversion of heart rhythm. Sinus Bradycardia noted on [address] Hall notified of changes as well
--- NOTE | 2020-05-23 13:42 | PM.PNNEP ---
Progress Note: A&P Assessment and Plan (1) ESRD (end stage renal disease) on dialysis: Code(s): N18.6 - End stage renal disease; Z99.2 - Dependence on renal dialysis Status: Chronic Assessment and Plan: The patient has end-stage kidney disease. She will get dialysis in a few minutes remove some fluid as tolerated. (2) COVID-19: Code(s): U07.1 - COVID-19 Status: Acute Assessment and Plan: off isolaiton. (3) Pulmonary hypertension: Onset Date: Unknown Code(s): I27.20 - Pulmonary hypertension, unspecified Status: Acute Assessment and Plan: The patient has pulmonary hypertension. This is because of her diastolic dysfunction and also because of her sleep apnea. Obesity can do this as well. trying to keep fluid off with dialysis. (4) Diastolic congestive heart failure: Qualifiers: Heart failure chronicity: unspecified Qualified Code(s): I50.30 - Unspecified diastolic (congestive) heart failure Code(s): I50.30 - Unspecified diastolic (congestive) heart failure Status: Chronic Assessment and Plan: Patient has grade 2 diastolic dysfunction. (5) Essential hypertension: Onset Date: Unknown Code(s): I10 - Essential (primary) hypertension Status: Chronic Assessment and Plan: The blood pressure is a bit high. Will see how her blood pressure is after we take the extra fluid off today. (6) Diabetes mellitus: Onset Date: Unknown Qualifiers: Diabetes mellitus type: type 2 Diabetes mellitus senior living insulin use: with senior living use Diabetes mellitus complication status: with kidney complications Diabetes mellitus complication detail: with chronic kidney disease Chronic kidney disease stage: stage 3 (moderate) Chronic kidney disease stage 3 subtype: unspecified whether 3a or 3b Qualified Code(s): E11.22 - Type 2 diabetes mellitus with diabetic chronic kidney disease; N18.30 - Chronic kidney disease, stage 3 unspecified; Z79.4 - manager storage (current) use of insulin Code(s): E11.9 - Type 2 diabetes mellitus without complications Status: Chronic Assessment and Plan: on accuchecks and ssi Subjective Date/time seen: 05/23/20 22:32 Interval history: pt is feeling okay. no cp or sob. now off isolation. about to start dialysis. Review of Systems Cardiovascular: Cardiovascular: Reports no additional cardiovascular complaints Respiratory: Respiratory: Reports no additional respiratory complaints Gastrointestinal: Gastrointestinal: Reports no additional gastrointestinal complaints Genitourinary: Genitourinary: Reports no additional female genitourinary complaints Exam Narrative: Exam Narrative: WDWN in NAD skin no rash head ncat lungs clear cor reg no rub abd BS+ nontender and soft ext no edema. Objective Data Vital Signs Vital Signs: Vital Signs - 24 hr 05/22/20 23:00 05/22/20 23:34 05/23/20 00:00 Temperature 36.6 C Pulse Rate 127 H 125 H 139 H Respiratory Rate 22 H Blood Pressure 130/67 Pulse Oximetry 97 100 98 05/23/20 02:00 05/23/20 02:12 05/23/20 04:00 Temperature 36.1 C L Pulse Rate 120 H 87 114 H Respiratory Rate 22 H Blood Pressure 151/97 H Pulse Oximetry 98 100 05/23/20 06:00 05/23/20 08:00 05/23/20 08:51 Temperature 36.6 C Pulse Rate 118 H 123 H Respiratory Rate 24 H Blood Pressure 116/68 Pulse Oximetry 96 96 05/23/20 09:10 05/23/20 09:11 05/23/20 10:00 Temperature Pulse Rate 128 H 128 H 120 H Respiratory Rate Blood Pressure Pulse Oximetry 05/23/20 12:00 05/23/20 14:00 05/23/20 14:11 Temperature 36.8 C 36.8 C Pulse Rate 60 60 65 Respiratory Rate 22 H 21 H Blood Pressure 127/72 167/58 H 105/49 L Pulse Oximetry 96 05/23/20 14:30 05/23/20 14:45 05/23/20 15:00 Temperature Pulse Rate 67 65 64 Respiratory Rate Blood Pressure 123/59 L 129/62 145/70 H P
--- NOTE | 2020-05-23 16:59 | PC.NURSE ---
Pt heart rate has increased to 120-140's. Pt is back in Afib RVR as of about 1550. Dr. Gonzalez notified that patient had been AFib w/ RVR yesterday and that she was on an Amio drip that had completed last night and oral Amio was placed back on patient's MAY. Pt was given Amio and Metoprolol this AM. Patient had converted back to sinus rhythm this afternoon. Dialysis was started around 1330. Pt has sustained AFib w/ RVR with heart rate as high as 175. New order for 10mg Cardizem IVP, and then Cardizem drip 10mg/hr.
[2020-05-23 17:09] LABS: Hepatitis B Surface Antigen Negative (Negative)
[2020-05-23] MEDS: dilTIAZem HCl INJ 25 MG/5 ML VIAL 10 MG IV PUSH (17:13)
[2020-05-23 17:27] LABS: Hepatitis B Surface Anti Res Negative
[2020-05-23 17:29] LABS: Glucose Point of Care 182 (65-105)
[2020-05-23 20:22] LABS: Glucose Point of Care 212 (65-105)
[2020-05-24] VITALS (28 sets, daily range): BP systolic 100–146; BP diastolic 61–83; PULSE 62–134; RESP 20–22; TEMP 36.1–36.5; O2SAT 93–100
[2020-05-24] MEDS: ALBUTEROL SULFATE (*SP) INHALER 2 PUFF INHALATION ×4 (01:56→20:43)
[2020-05-24 05:09] LABS: Hematocrit 37.8 % (37.0-47.0); Hemoglobin 12.6 g/dL (12.0-15.0); Mean Corpuscular HGB Conc 33.3 g/dl (32-36); Mean Corpuscular Hemoglobin 25.3 pg (26-34); Mean Corpuscular Volume 75.9 fl (80-100); Mean Platelet Volume 10.4 fl (7.4-10.4); Platelet Count Result 201 k/mm3 (150-375); Red Blood Count 4.98 M/mm3 (4.2-5.4); Red Cell Distribution Width 15.9 % (11.5-14.5)
[2020-05-24 05:51] LABS: Albumin Level 3.4 g/dL (3.5-5.1); Anion Gap 6 mmol/L (8-16); Blood Urea Nitrogen 34 mg/dL (7-17); Carbon Dioxide 33 mmol/L (22-30); Chloride 95 mmol/L (98-107); Estimated CRCL calculation 15 ml/min; Estimated Glomerular Filt Rate 13; Glucose 158 mg/dL (65-105); Phosphorus 3.4 mg/dL (2.5-4.5); Potassium 3.8 mmol/L (3.4-5.0); Sodium 134 mmol/L (137-145)
[2020-05-24] MEDS: METOPROLOL TARTRATE 25 MG TABLET 75 MG PO ×3 (08:51→20:43)
[2020-05-24] MEDS: LOSARTAN POTASSIUM 100 MG TABLET PO (08:52)
[2020-05-24] MEDS: SIMVASTATIN 20 MG TABLET PO (08:52)
[2020-05-24] MEDS: PANTOPRAZOLE 40 MG TABLET PO (08:52)
[2020-05-24] MEDS: AMIODARONE HCL 200 MG TABLET PO (08:52)
[2020-05-24] MEDS: FERROUS SULFATE 324 MG TABLET PO ×2 (08:52→16:50)
[2020-05-24] MEDS: DEXAMETHASONE SOD PHOS INJ 4 MG/ML VIAL 6 MG IV PUSH (08:53)
[2020-05-24] MEDS: APIXABAN 2.5 MG TABLET PO ×2 (08:53→20:42)
[2020-05-24] MEDS: INSULIN GLARGINE (*BKC) 100 UNITS/ML 36 UNITS SUB-Q (08:53)
[2020-05-24] MEDS: TIMOLOL MALEATE 0.5% OP SOLN 5 ML BOTTLE 1 DROP EACH EYE ×2 (08:54→20:42)
[2020-05-24] MEDS: BRIMONIDINE TARTRATE 0.2% OP SOLN 5 ML BTL 1 DROP EACH EYE ×2 (08:54→20:42)
--- NOTE | 2020-05-24 10:04 | PM.PNNEP ---
Progress Note: A&P Assessment and Plan (1) ESRD (end stage renal disease) on dialysis: Code(s): N18.6 - End stage renal disease; Z99.2 - Dependence on renal dialysis Status: Chronic Assessment and Plan: The patient has end-stage kidney disease. Her urine output is minimal. I do not think she is going to recover kidney function. The patient was walking with a walker before she came in. She was going to get physical therapy but because of the Cardizem drip this was held. Hopefully we can stop the Cardizem drip soon if the heart settles down and then we can get some physical therapy here. Is a possible she might be able to return home with her brother? The patient can go back to [facility] ([facility]) per administration there. We will dialyze her Tuesday here and then she can go to [place] on . (2) COVID-19: Code(s): U07.1 - COVID-19 Status: Acute Assessment and Plan: off isolation. (3) Pulmonary hypertension: Onset Date: Unknown Code(s): I27.20 - Pulmonary hypertension, unspecified Status: Acute Assessment and Plan: The patient has pulmonary hypertension. This is because of her diastolic dysfunction and also because of her sleep apnea. Obesity can do this as well. trying to keep fluid off with dialysis. (4) Diastolic congestive heart failure: Qualifiers: Heart failure chronicity: unspecified Qualified Code(s): I50.30 - Unspecified diastolic (congestive) heart failure Code(s): I50.30 - Unspecified diastolic (congestive) heart failure Status: Chronic Assessment and Plan: Patient has grade 2 diastolic dysfunction. She developed a rapid heart rate last night. Now on a Cardizem drip. (5) Essential hypertension: Onset Date: Unknown Code(s): I10 - Essential (primary) hypertension Status: Chronic Assessment and Plan: The blood pressure is doing really well right now. (6) Diabetes mellitus: Onset Date: Unknown Qualifiers: Diabetes mellitus type: type 2 Diabetes mellitus intermediate accountant insulin use: with intermediate accountant use Diabetes mellitus complication status: with kidney complications Diabetes mellitus complication detail: with chronic kidney disease Chronic kidney disease stage: stage 3 (moderate) Chronic kidney disease stage 3 subtype: unspecified whether 3a or 3b Qualified Code(s): E11.22 - Type 2 diabetes mellitus with diabetic chronic kidney disease; N18.30 - Chronic kidney disease, stage 3 unspecified; Z79.4 - long term acute care registered nurse (current) use of insulin Code(s): E11.9 - Type 2 diabetes mellitus without complications Status: Chronic Assessment and Plan: on accuchecks and ssi Subjective Date/time seen: 05/24/20 10:04 Interval history: pt is feeling okay. no cp or sob. She had dialysis yesterday and tolerated it well. 2L were removed. She has said [facility]. Exam Narrative: Exam Narrative: WDWN in NAD skin no rash head ncat lungs clear to auscultation cor reg no rub abd BS+ nontender and soft ext no edema or cyanosis Objective Data Vital Signs Vital Signs: Vital Signs - 24 hr 05/23/20 12:00 05/23/20 14:00 05/23/20 14:11 Temperature 36.8 C 36.8 C Pulse Rate 60 60 65 Respiratory Rate 22 H 21 H Blood Pressure 127/72 167/58 H 105/49 L Pulse Oximetry 96 05/23/20 14:30 05/23/20 14:45 05/23/20 15:00 Temperature Pulse Rate 67 65 64 Respiratory Rate Blood Pressure 123/59 L 129/62 145/70 H Pulse Oximetry 05/23/20 15:15 05/23/20 15:30 05/23/20 15:45 Temperature Pulse Rate 67 102 H 119 H Respiratory Rate Blood Pressure 144/67 H 166/70 H 152/76 H Pulse Oximetry 05/23/20 16:00 05/23/20 16:15 05/23/20 16:30 Temperature 36.3 C L Pulse Rate 137 H 109 H 96 Respiratory Rate 22 H Blood Pressure 120/71 165/70 H 121/87 Pulse Oximetry 96 03
--- NOTE | 2020-05-24 11:29 | PM.PNCARD ---
Progress Note: A&P Assessment and Plan (1) Atrial fibrillation with rapid ventricular response: Code(s): I48.91 - Unspecified atrial fibrillation Status: Acute Assessment and Plan: Increase amiodarone from 200 mg b.i.d. to: 400 mg p.o. b.i.d.. Increase metoprolol from 75 mg BID to: 75 mg Q8H DC IV Cardizem; use IVP cardizem prn for excessive tachycardia. Continue Eliquis 2.5 mg every 12 hours. Monitor for bleeding. (2) COVID-19: Code(s): U07.1 - COVID-19 Status: Acute Assessment and Plan: Per primary service. She remains on supplemental oxygen but states she is feeling better. COVID-19 isolation precautions. Fortunately patient has improved and she does not need supplementary oxygen at this time. (3) ESRD (end stage renal disease) on dialysis: Code(s): N18.6 - End stage renal disease; Z99.2 - Dependence on renal dialysis Status: Chronic Assessment and Plan: Hemodialysis volume management Per nephrology. (4) Pulmonary hypertension: Onset Date: Unknown Code(s): I27.20 - Pulmonary hypertension, unspecified Status: Acute Assessment and Plan: Severe by echo March 2020 RVSP 68 mm Hg. Continue treatment of KIERRA with CPAP as tolerated. (5) CHF (congestive heart failure): Qualifiers: Heart failure chronicity: unspecified Heart failure type: unspecified Qualified Code(s): I50.9 - Heart failure, unspecified Code(s): I50.9 - Heart failure, unspecified Status: Acute Assessment and Plan: History of heart failure with preserved ejection fraction. Patient appears to be clinically euvolemic at present. Continue to monitor volume status. Subjective Date/time seen: 05/24/20 11:29 Interval history: Pt is a 69 y/o female here for COVID and afib RVR. H/O paroxysmal atrial fibrillation, end-stage renal disease on hemodialysis, chronic heart failure with preserved ejection fraction, diabetes mellitus, hypertension, morbid obesity, obstructive sleep apnea, severe pulmonary hypertension who has been maintained as an outpatient on amiodarone and Kori who presented from [facility] as a direct admission secondary to acute respiratory failure from COVID-19 pneumonia. 05/23/2020: This patient was in the hospital here for a long time discharge last month. She has a well-established history of paroxysmal atrial fibrillation. The notes on the chart indicate this is chronic but I do not believe that is correct. She was loaded with amiodarone for a long time during the last hospitalization and upon discharge was still in AFib at some times but predominantly in sinus rhythm. The hope was that she would eventually persistent sinus rhythm the longer she has takes amiodarone. Now in the setting of pelayo virus pneumonia it is obviously not surprising that she has AF with RVR. No specific cardiovascular complaints Date of service 05/24/2020: Amiodarone drip had been discontinued and she was started on p.o. amiodarone at a little higher dose, 200 mg b.i.d.. Patient went back and AFib on dialysis yesterday heart rate 120s and was started on a Cardizem drip 10 mg/hr. Not needing any supplemental oxygen. Telemetry shows persistent AFib heart rate 120s. Patient feels okay, productive cough at times, a little nausea, scared. Review of Systems Constitutional: Constitutional: Reports fatigue and Reports lethargy Eyes: Eyes: Reports no additional eye complaints ENT: Denies epistaxis Cardiovascular: Cardiovascular: Denies chest pain, Denies pedal edema, Denies lightheadedness and Denies palpitations Respiratory: Respiratory: Reports chest congestion, Reports cough and Reports dyspnea on exertion Gastrointestinal: Gastrointestinal: Denies
[2020-05-24 11:52] LABS: Glucose Point of Care 173 (65-105)
--- NOTE | 2020-05-24 14:38 | PM.IMPN ---
Progress Note: A&P Assessment and Plan (1) Atrial fibrillation with RVR: Code(s): I48.91 - Unspecified atrial fibrillation Status: Acute Assessment and Plan: Likely secondary to COVID infection -Pt went into RVR overnight and was on a cardizem drip. That has been stopped and now is on amiodarone 400mg BID and metoprolol tartrate 75mg Q8 -Last HR 110 -Continue to monitor. Pt has no CP (2) Acute respiratory failure with hypoxia: Code(s): J96.01 - Acute respiratory failure with hypoxia Status: Acute Assessment and Plan: Resolved. Likely secondary to hypervolemia/ COVID-19 infection although CXR has without infection -pt is now off o2 -CXR actually looks okay -PE seems less likely since she takes eliquis. May consider CTA prior to dialysis if she becomes hypoxic again. Wells criteria 1.5, less likely. no LE DVT (3) COVID-19: Code(s): U07.1 - COVID-19 Status: Acute Assessment and Plan: Stable -outside the window of isolation, okay to discontinue (4) Diastolic congestive heart failure: Qualifiers: Heart failure chronicity: unspecified Qualified Code(s): I50.30 - Unspecified diastolic (congestive) heart failure Code(s): I50.30 - Unspecified diastolic (congestive) heart failure Status: Chronic Assessment and Plan: Chronic -Appears euvolemic at this time -monitor (5) Diabetes mellitus: Onset Date: Unknown Qualifiers: Diabetes mellitus type: type 2 Diabetes mellitus skilled nursing insulin use: with skilled nursing use Diabetes mellitus complication status: with kidney complications Diabetes mellitus complication detail: with chronic kidney disease Chronic kidney disease stage: stage 3 (moderate) Chronic kidney disease stage 3 subtype: unspecified whether 3a or 3b Qualified Code(s): E11.22 - Type 2 diabetes mellitus with diabetic chronic kidney disease; N18.30 - Chronic kidney disease, stage 3 unspecified; 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 Continue metoprolol (7) Afib: Qualifiers: Atrial fibrillation type: unspecified Qualified Code(s): I48.91 - Unspecified atrial fibrillation Code(s): I48.91 - Unspecified atrial fibrillation Status: Chronic Assessment and Plan: As above, continue amiodarone, metoprolol, and Eliquis. (8) ESRD (end stage renal disease) on dialysis: Code(s): N18.6 - End stage renal disease; Z99.2 - Dependence on renal dialysis Status: Chronic Assessment and Plan: On dialsysis MWF -Nephrology consulted Additional Plan Subjective Date/time seen: 05/24/20 14:38 Interval history: Pt is a 69 y/o female here for COVID and afib RVR. Pt was seen today and states she is doing well. She is not having any SOB, cough or CP. She is eating and drinking well with no nausea or vomiting. She doesn't feel like her heart is racing. No diarrhea or constipation. Exam Narrative: Exam Narrative: General: Over weight pt resting in bed in NAD HEENT: normocephalic Neck: supple Neuro: Alert and oriented x4 CV:Irregularly irregular with a rate of 110 on exam. Tele shows afib RVR range 120-150 Resp:Decreased breath sounds bilaterally, likely d/t body habitus. No wheezing. Abd: Soft, non distended. No pain to palpation. Positive bowel sounds Extremities: No swelling, erythema, or pain to palpation. Objective Data Vital Signs Vital Signs: Vital Signs - 24 hr 05/23/20 14:45 05/23/20 15
[2020-05-24 16:13] LABS: Glucose Point of Care 181 (65-105)
[2020-05-24] MEDS: polyethylene glycoL 3350 17 GM POWD.PACK PO (16:50)
[2020-05-24 20:19] LABS: Glucose Point of Care 150 (65-105)
[2020-05-24] MEDS: AMIODARONE HCL 200 MG TABLET 400 MG PO (20:42)
[2020-05-24] MEDS: dilTIAZem HCl INJ 25 MG/5 ML VIAL 10 MG IV PUSH (23:11)
[2020-05-25] VITALS (24 sets, daily range): BP systolic 125–152; BP diastolic 56–93; PULSE 51–123; RESP 20–22; TEMP 35.7–36.1; O2SAT 93–100
[2020-05-25] MEDS: ALBUTEROL SULFATE (*SP) INHALER 2 PUFF INHALATION ×4 (01:42→21:02)
[2020-05-25] MEDS: METOPROLOL TARTRATE 25 MG TABLET 75 MG PO ×2 (06:01→21:01)
[2020-05-25] MEDS: PANTOPRAZOLE 40 MG TABLET PO (08:31)
[2020-05-25] MEDS: SIMVASTATIN 20 MG TABLET PO (08:31)
[2020-05-25] MEDS: FERROUS SULFATE 324 MG TABLET PO ×2 (08:31→17:42)
[2020-05-25] MEDS: APIXABAN 2.5 MG TABLET PO ×2 (08:31→21:01)
[2020-05-25] MEDS: AMIODARONE HCL 200 MG TABLET 400 MG PO ×2 (08:31→21:00)
[2020-05-25] MEDS: LOSARTAN POTASSIUM 100 MG TABLET PO (08:31)
[2020-05-25] MEDS: BRIMONIDINE TARTRATE 0.2% OP SOLN 5 ML BTL 1 DROP EACH EYE ×2 (08:32→21:02)
[2020-05-25] MEDS: DEXAMETHASONE SOD PHOS INJ 4 MG/ML VIAL 6 MG IV PUSH (08:32)
[2020-05-25] MEDS: TIMOLOL MALEATE 0.5% OP SOLN 5 ML BOTTLE 1 DROP EACH EYE ×2 (08:33→21:02)
[2020-05-25 08:36] LABS: Glucose Point of Care 57 (65-105)
[2020-05-25 08:37] LABS: Glucose Point of Care 119 (65-105)
--- NOTE | 2020-05-25 10:18 | PM.PNNEP ---
Progress Note: A&P Assessment and Plan (1) ESRD (end stage renal disease) on dialysis: Code(s): N18.6 - End stage renal disease; Z99.2 - Dependence on renal dialysis Status: Chronic Assessment and Plan: The patient has end-stage kidney disease. Her urine output is minimal. I do not think she is going to recover kidney function. Dialysis tomorrow, then will go Tuesday schedule. (2) COVID-19: Code(s): U07.1 - COVID-19 Status: Acute Assessment and Plan: off isolation. (3) Pulmonary hypertension: Onset Date: Unknown Code(s): I27.20 - Pulmonary hypertension, unspecified Status: Acute Assessment and Plan: The patient has pulmonary hypertension. This is because of her diastolic dysfunction and also because of her sleep apnea. Obesity can do this as well. trying to keep fluid off with dialysis. (4) Diastolic congestive heart failure: Qualifiers: Heart failure chronicity: unspecified Qualified Code(s): I50.30 - Unspecified diastolic (congestive) heart failure Code(s): I50.30 - Unspecified diastolic (congestive) heart failure Status: Chronic Assessment and Plan: Patient has grade 2 diastolic dysfunction. She developed a rapid heart rate last night. Now on a Cardizem drip. (5) Essential hypertension: Onset Date: Unknown Code(s): I10 - Essential (primary) hypertension Status: Chronic Assessment and Plan: The blood pressure is doing really well right now. 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 no cp or sob. Due for dialysis tomorrow She has said she [facility]. Eating okay. Bowels okay. Review of Systems Cardiovascular: Cardiovascular: Reports no additional cardiovascular complaints Respiratory: Respiratory: Reports no additional respiratory complaints Gastrointestinal: Gastrointestinal: Reports no additional gastrointestinal complaints Genitourinary: Genitourinary: Reports no additional female genitourinary complaints Exam Narrative: Exam Narrative: WDWN in NAD skin no rash or subcu nodules head ncat lungs clear to auscultation cor reg no rub or gallop abd BS+ nontender and soft ext no edema or cyanosis Objective Data Vital Signs Vital Signs: Vital Signs - 24 hr 05/24/20 11:54 05/24/20 12:00 05/24/20 13:33 Temperature 36.1 C L Pulse Rate 117 H 120 H 103 H Respiratory Rate 22 H Blood Pressure 124/78 Pulse Oximetry 100 05/24/20 14:00 05/24/20 16:00 05/24/20 16:15 Temperature 36.3 C L Pulse Rate 109 H 126 H 120 H Respiratory Rate 20 Blood Pressure 100/73 Pulse Oximetry 93 05/24/20 18:00 05/24/20 20:00 05/24/20 20:42 Temperature 36.1 C L Pulse Rate 113 H 66 65 Respiratory Rate 20 Blood Pressure 126/61 Pulse Oximetry 100 05/24/20 20:43 05/24/20 22:00 05/24/20 22:45 Temperature Pulse Rate 65 121 H 128 H Respiratory Rate Blood Pressure Pulse Oximetry 100 05/24/20 23:12 05/24/20 23:20 05/25/20 00:00 Temperature 36.5 C Pulse Rate 133 H 127 H 55
[2020-05-25 12:22] LABS: Glucose Point of Care 129 (65-105)
--- NOTE | 2020-05-25 12:46 | PM.IMPN ---
Progress Note: A&P Assessment and Plan (1) Atrial fibrillation with RVR: Code(s): I48.91 - Unspecified atrial fibrillation Status: Acute Assessment and Plan: Likely secondary to COVID infection -Improved today and in sinus rhythm. Continue amiodarone 400mg BID and metoprolol tartrate 75mg Q8 -Last HR 58 -Continue to monitor. Pt has no CP (2) Acute respiratory failure with hypoxia: Code(s): J96.01 - Acute respiratory failure with hypoxia Status: Acute Assessment and Plan: Resolved. Likely secondary to hypervolemia/ COVID-19 infection although CXR has without infection -pt is now off o2 -CXR actually looks okay -PE seems less likely since she takes eliquis. May consider CTA prior to dialysis if she becomes hypoxic again. Wells criteria 1.5, less likely. 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 Diabetes mellitus complication status: with kidney complications Diabetes mellitus complication detail: with chronic kidney disease Chronic kidney disease stage: stage 3 (moderate) Chronic kidney disease stage 3 subtype: unspecified whether 3a or 3b Qualified Code(s): E11.22 - Type 2 diabetes mellitus with diabetic chronic kidney disease; N18.30 - Chronic kidney disease, stage 3 unspecified; 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 This has been decreased due to hypoglycemia today -A1c was 9.6 03/30/20 (6) Essential hypertension: Onset Date: Unknown Code(s): I10 - Essential (primary) hypertension Status: Chronic Assessment and Plan: Last bp 138/65 -Monitor blood pressure. Continue metoprolol (7) Afib: Qualifiers: Atrial fibrillation type: unspecified Qualified Code(s): I48.91 - Unspecified atrial fibrillation Code(s): I48.91 - Unspecified atrial fibrillation Status: Chronic Assessment and Plan: As above, continue amiodarone, metoprolol, and Eliquis. (8) ESRD (end stage renal disease) on dialysis: Code(s): N18.6 - End stage renal disease; Z99.2 - Dependence on renal dialysis Status: Chronic Assessment and Plan: On dialsysis MWF but will be switching to and according to [facility] -Nephrology consulted Additional Plan Plan to d/c likely in the next 1-2 days as long as HR continues to be controlled. [facility] Plan to d/c to [facility]. Subjective Date/time seen: 05/25/20 12:46 Interval history: Pt is a 69 y/o female here for COVID and afib RVR. Pt was seen today and states she is doing well. She was able to walk with therapy today and she felt close to her baseline and denied weakness. She is not having any SOB, cough or CP. She is eating and drinking well with no nausea or vomiting. She doesn't feel like her heart is racing. No diarrhea or constipation. Exam Narrative: Exam Narrative: General: Over weight pt resting in bed in NAD HEENT: normocephalic Neck: supple Neuro: Alert and oriented x4 CV:sinus bradycardia 58 on exam. Tele shows that she converted to sinus rhythm at 2am
--- NOTE | 2020-05-25 12:56 | PM.PNCARD ---
Progress Note: A&P Assessment and Plan (1) Atrial fibrillation with rapid ventricular response: Code(s): I48.91 - Unspecified atrial fibrillation Status: Acute Assessment and Plan: Increased amiodarone from 200 mg b.i.d. to: 400 mg p.o. b.i.d.; probably decrease back to 200 mg b.i.d. on discharge. Change metoprolol from 75 mg BID to: 50 mg 1.5 tablets BID Continue Eliquis 2.5 mg every 12 hours. Monitor for bleeding. (2) COVID-19: Code(s): U07.1 - COVID-19 Status: Acute Assessment and Plan: Per primary service. Off O2. COVID-19 isolation precautions. (3) ESRD (end stage renal disease) on dialysis: Code(s): N18.6 - End stage renal disease; Z99.2 - Dependence on renal dialysis Status: Chronic Assessment and Plan: Hemodialysis volume management Per nephrology. (4) Pulmonary hypertension: Onset Date: Unknown Code(s): I27.20 - Pulmonary hypertension, unspecified Status: Acute Assessment and Plan: Severe by echo March 2020 RVSP 68 mm Hg. Continue treatment of KIERRA with CPAP as tolerated. (5) CHF (congestive heart failure): Qualifiers: Heart failure chronicity: unspecified Heart failure type: unspecified Qualified Code(s): I50.9 - Heart failure, unspecified Code(s): I50.9 - Heart failure, unspecified Status: Acute Assessment and Plan: History of heart failure with preserved ejection fraction. Patient appears to be clinically euvolemic at present. Continue to monitor volume status. Subjective Date/time seen: 05/25/20 12:56 Interval history: Pt is a 69 y/o female here for COVID and afib RVR. H/O paroxysmal atrial fibrillation, end-stage renal disease on hemodialysis, chronic heart failure with preserved ejection fraction, diabetes mellitus, hypertension, morbid obesity, obstructive sleep apnea, severe pulmonary hypertension who has been maintained as an outpatient on amiodarone and Elibrigidois who presented from [facility] as a direct admission secondary to acute respiratory failure from COVID-19 pneumonia. 05/23/2020: This patient was in the hospital here for a long time discharge last month. She has a well-established history of paroxysmal atrial fibrillation. The notes on the chart indicate this is chronic but I do not believe that is correct. She was loaded with amiodarone for a long time during the last hospitalization and upon discharge was still in AFib at some times but predominantly in sinus rhythm. The hope was that she would eventually persistent sinus rhythm the longer she has takes amiodarone. Now in the setting of pelayo virus pneumonia it is obviously not surprising that she has AF with RVR. No specific cardiovascular complaints 05/24/2020: Amiodarone drip had been discontinued and she was started on p.o. amiodarone at a little higher dose, 200 mg b.i.d.. Patient went back and AFib on dialysis yesterday heart rate 120s and was started on a Cardizem drip 10 mg/hr. Not needing any supplemental oxygen. Telemetry shows persistent AFib heart rate 120s. Patient feels okay, productive cough at times, a little nausea, scared. Date of service 05/25/2020: Feeling well, able to ambulate up in the room with no difficulties, remains off oxygen, hopes to be discharged tomorrow. Does not feel any palpitations. A little dizzy when she 1st stands up. Telemetry still shows intermittent atrial fibrillation RVR, heart rates tending to be in the 110 range when in AFib. Uupper 50s to 60s at rest when in sinus rhythm. Review of Systems Constitutional: Constitutional: Reports no additional constitutional complaints ENT: Denies epistaxis Cardiovascular: Cardiovascular: Denies chest pain, Denies pedal edema, Denies leg ed
[2020-05-25 16:26] LABS: Glucose Point of Care 255 (65-105)
[2020-05-25 20:08] LABS: Glucose Point of Care 320 (65-105)
[2020-05-25] MEDS: INSULIN GLARGINE (*BKC) 100 UNITS/ML 10 UNITS SUB-Q (21:36)
[2020-05-25 21:49] LABS: Glucose Point of Care 328 (65-105)
[2020-05-25] MEDS: INSULIN ASPART (*BKC) 100 UNITS/ML 10 UNITS SUB-Q (23:25)
[2020-05-25 23:38] LABS: Glucose Point of Care 354 (65-105)
[2020-05-26] VITALS (34 sets, daily range): BP systolic 90–172; BP diastolic 33–72; PULSE 52–85; RESP 16–24; TEMP 35.9–37; O2SAT 97–100
[2020-05-26] MEDS: ALBUTEROL SULFATE (*SP) INHALER 2 PUFF INHALATION ×3 (02:04→15:09)
[2020-05-26 04:43] LABS: Hematocrit 37.7 % (37.0-47.0); Hemoglobin 12.2 g/dL (12.0-15.0); Mean Corpuscular HGB Conc 32.4 g/dl (32-36); Mean Corpuscular Hemoglobin 25.2 pg (26-34); Mean Corpuscular Volume 77.7 fl (80-100); Mean Platelet Volume 10.5 fl (7.4-10.4); Platelet Count Result 176 k/mm3 (150-375); Red Blood Count 4.85 M/mm3 (4.2-5.4); Red Cell Distribution Width 15.9 % (11.5-14.5); White Blood Count 8.7 K/mm3 (4.5-10.0)
[2020-05-26 04:56] LABS: Albumin Level 3.1 g/dL (3.5-5.1); Anion Gap 9 mmol/L (8-16); Blood Urea Nitrogen 84 mg/dL (7-17); Calcium 9.2 mg/dL (8.4-10.2); Carbon Dioxide 30 mmol/L (22-30); Chloride 99 mmol/L (98-107); Estimated CRCL calculation 9 ml/min; Estimated Glomerular Filt Rate 7; Glucose 284 mg/dL (65-105); Phosphorus 3.2 mg/dL (2.5-4.5); Potassium 4.2 mmol/L (3.4-5.0); Sodium 138 mmol/L (137-145)
[2020-05-26 08:08] LABS: Glucose Point of Care 206 (65-105)
[2020-05-26] MEDS: APIXABAN 2.5 MG TABLET PO (08:27)
[2020-05-26] MEDS: SIMVASTATIN 20 MG TABLET PO (08:27)
[2020-05-26] MEDS: FERROUS SULFATE 324 MG TABLET PO ×2 (08:27→16:57)
[2020-05-26] MEDS: METOPROLOL TARTRATE 25 MG TABLET 75 MG PO (08:28)
[2020-05-26] MEDS: AMIODARONE HCL 200 MG TABLET 400 MG PO (08:28)
[2020-05-26] MEDS: TIMOLOL MALEATE 0.5% OP SOLN 5 ML BOTTLE 1 DROP EACH EYE (08:28)
[2020-05-26] MEDS: DEXAMETHASONE SOD PHOS INJ 4 MG/ML VIAL 6 MG IV PUSH (08:28)
[2020-05-26] MEDS: PANTOPRAZOLE 40 MG TABLET PO (08:28)
[2020-05-26] MEDS: BRIMONIDINE TARTRATE 0.2% OP SOLN 5 ML BTL 1 DROP EACH EYE (08:28)
[2020-05-26] MEDS: LOSARTAN POTASSIUM 100 MG TABLET PO (08:28)
[2020-05-26] MEDS: INSULIN GLARGINE (*BKC) 100 UNITS/ML 25 UNITS SUB-Q (08:29)
--- NOTE | 2020-05-26 08:53 | PM.PNCARD ---
Progress Note: A&P Additional Plan 69-year-old female with: Paroxysmal atrial fibrillation in the setting of morbid obesity and obstructive sleep apnea. She has done relatively well with amiodarone. It still has episodes of atrial fibrillation intermittently but she is either asymptomatic or minimally symptomatic with this. I will reduce her amiodarone dosage down to 200 mg q.12 hours in anticipation of possible discharge later today. Low-dose apixaban will be continued. I will ensure the appropriate follow-up in the our office has been arranged with Dr. Maki Hall MD [facility] Subjective Date/time seen: Date of service: 05/26/20 08:53 Interval history: Follow-up visit in this 69-year-old woman with: Paroxysmal atrial fibrillation and comorbidities including morbid obesity and end-stage renal disease on hemodialysis. Patient is asymptomatic this morning eating her breakfast upon entering the room. Plans to have dialysis today. There apparently are some considerations of possibly discharging her later today. Exam Narrative: Exam Narrative: Patient is sitting on the edge of her bed, eating lunch, watching TV, no distress Const: General: comfortable and no acute distress HENMT: General nose exam: no epistaxis Mouth: Yes moist mucous membranes Eyes: EOM: EOMs intact bilaterally Neck: Neck: supple Resp: Effort & Inspection: normal respiratory effort Auscultation: clear to auscultation bilaterally Cardio: Rate: regular rate and tachycardic Rhythm: regular rhythm and abnormal rhythm irregularly irregular Heart sounds: no murmurs Skin: General skin exam: normal color and no rashes or lesions noted Neuro: Cognition (Neuro): normal cognition Speech: normal speech Motor exam (neuro): Normal motor muscle tone present throughout Extrem: General: no edema and no pedal edema Psych: Mental Status: mental status grossly normal Objective Data Vital Signs Vital Signs: Vital Signs - 24 hr 05/25/20 09:20 05/25/20 10:00 05/25/20 12:00 Temperature Pulse Rate 56 L 58 L Respiratory Rate Blood Pressure Pulse Oximetry 93 05/25/20 12:33 05/25/20 14:00 05/25/20 16:00 Temperature 35.7 C L Pulse Rate 58 L 60 58 L Respiratory Rate 20 Blood Pressure 138/65 Pulse Oximetry 100 05/25/20 16:26 05/25/20 18:00 05/25/20 20:00 Temperature 36.0 C L 36.0 C L Pulse Rate 59 L 63 64 Respiratory Rate 22 H 20 Blood Pressure 128/60 127/56 L Pulse Oximetry 99 99 05/25/20 21:00 05/25/20 21:01 05/25/20 22:00 Temperature Pulse Rate 64 64 62 Respiratory Rate Blood Pressure Pulse Oximetry 05/25/20 23:05 05/25/20 23:43 05/26/20 00:00 Temperature 36.1 C L Pulse Rate 60 61 57 L Respiratory Rate 20 Blood Pressure 152/61 H Pulse Oximetry 96 97 05/26/20 02:00 05/26/20 03:12 05/26/20 04:00 Temperature 36.1 C L Pulse Rate 52 L 64 52 L Respiratory Rate 20 Blood Pressure 148/54 H Pulse Oximetry 97 100 05/26/20 06:00 05/26/20 08:00 05/26/20 08:18 Temperature 36.2 C L Pulse Rate 53 L 60 55 L Respiratory Rate 20 Blood Pressure 172/70 H Pulse Oximetry 100 05/26/20 08:28 Temperature Pulse Rate 57 L Respiratory Rate Blood Pressure Pulse Oximetry Intake/Output Intake/Output: Intake & Output 05/23/20 05/24/20 05/25/20 05/26/20 23:59 23:59 23:59 23:59 Intake Total 759 158 6516 Output Total 2500 300 0 0 Balance -9506 175 7465 0 Meds/Results Medications: Active Medications Generic Name Dose Route Start Last Admin Trade Name Freq PRN Reason Stop Dose Admin Acetaminophen 650 mg 05/22/20 01:11 Acetaminophen 325 Mg Tablet PO Q4H PRN Mild Pain (1-3) or Fever Albuterol 2 puff 05/22/20 01:10 Albuterol Sulfate (*Sp) Aerosol 1 Puff INHALATION Q4H PRN Shortness Of Breath Albuterol 2 puff 05/22/20 02:00 05/26/20 08:28 Albuterol Sulfate (*Sp) Inhaler INHALATION 2 puff Q6HRT [facility]
--- NOTE | 2020-05-26 09:48 | PM.DS ---
DS: Admitting Diagnosis Admitting Diagnosis Admitting Diagnosis: hypoxia DS: Discharge Diagnosis Discharge Diagnosis (1) Discharge planning issues: Code(s): Z02.9 - Encounter for administrative examinations, unspecified Status: Acute Assessment and Plan: Pt was planning to d/c 05/26/20 but dialysis was delayed and wasn't completed until 1130 at night. Pt discharged 05/27/20. (2) Atrial fibrillation with RVR: Code(s): I48.91 - Unspecified atrial fibrillation Status: Acute Assessment and Plan: Likely secondary to COVID infection -Improved today and in sinus rhythm. Continue amiodarone 200mg BID and metoprolol tartrate 75mg Q12 -Last HR 58 (3) Acute respiratory failure with hypoxia: Code(s): J96.01 - Acute respiratory failure with hypoxia Status: Acute Assessment and Plan: Resolved. Likely secondary to hypervolemia/ COVID-19 infection although CXR has without infection -pt is now off o2 -CXR actually looks okay -PE seems less likely since she takes eliquis and her symptoms have resolved. (4) COVID-19: Code(s): U07.1 - COVID-19 Status: Acute Assessment and Plan: Stable -outside the window of isolation (5) Diastolic congestive heart failure: Qualifiers: Heart failure chronicity: unspecified Qualified Code(s): I50.30 - Unspecified diastolic (congestive) heart failure Code(s): I50.30 - Unspecified diastolic (congestive) heart failure Status: Chronic Assessment and Plan: Chronic -Appears euvolemic at this time -monitor (6) Diabetes mellitus: Onset Date: Unknown Qualifiers: Chronic kidney disease stage: stage 3 (moderate) Chronic kidney disease stage 3 subtype: unspecified whether 3a or 3b Diabetes mellitus complication detail: with chronic kidney disease Diabetes mellitus complication status: with kidney complications Diabetes mellitus termite control technician insulin use: with detention use Diabetes mellitus type: type 2 Qualified Code(s): E11.22 - Type 2 diabetes mellitus with diabetic chronic kidney disease; N18.30 - Chronic kidney disease, stage 3 unspecified; Z79.4 - extermination inspector (current) use of insulin Code(s): E11.9 - Type 2 diabetes mellitus without complications Status: Chronic Assessment and Plan: Last glucose 150 but had hypoglycemia in the past -Pt usually on 30u of lantus and 20 u of 70/30 BID at home. This has been decreased due to hypoglycemia -A1c was 9.6 03/30/20, will need repeat next month. adjust insulin as needed outpt. facility notified by discharge instructions. (7) Essential hypertension: Onset Date: Unknown Code(s): I10 - Essential (primary) hypertension Status: Chronic Assessment and Plan: Last bp 136/62 Continue metoprolol (8) Afib: Qualifiers: Atrial fibrillation type: unspecified Qualified Code(s): I48.91 - Unspecified atrial fibrillation Code(s): I48.91 - Unspecified atrial fibrillation Status: Chronic Assessment and Plan: As above, continue amiodarone, metoprolol, and Eliquis. (9) ESRD (end stage renal disease) on dialysis: Code(s): N18.6 - End stage renal disease; Z99.2 - Dependence on renal dialysis Status: Chronic Assessment and Plan: On dialsysis MWF but will be switching to and according to CC -Nephrology was consulted thorughout the stay DS: Summary Hospital Course Hospital Course: Patient is a 69-year-old female with a history of dialysis, COVID-19, and AFib who presented To the emergency room for acute respiratory failure. WBC 7.1, hgb 10.4, hct 32.5, platelets 209. 132, potassium 4.1, chloride 89, carbon dioxide 31, BUN 24, creatinine 4.3, glucose 230. Chest x-ray on admission showed no acute cardiopulmonary disease. Patient was started on oxygen and admitted to the hospitalist service. She improved quickl
[2020-05-26 11:47] LABS: Glucose Point of Care 209 (65-105)
--- NOTE | 2020-05-26 15:11 | PM.PNNEP ---
Progress Note: A&P Assessment and Plan (1) ESRD (end stage renal disease) on dialysis: Code(s): N18.6 - End stage renal disease; Z99.2 - Dependence on renal dialysis Status: Chronic Assessment and Plan: No evidence of renal recovery so she is likely ESRD at this time transition to //Tuesday on discharge follow electrolytes, volume status, and clearance (2) COVID-19: Code(s): U07.1 - COVID-19 Status: Acute Assessment and Plan: off isolation at this time continue supportive therapy (3) Pulmonary hypertension: Onset Date: Unknown Code(s): I27.20 - Pulmonary hypertension, unspecified Status: Acute Assessment and Plan: due to diastolic dysfunction, KIERRA, and obesity continue to push fluid removal as tolerated (4) Essential hypertension: Onset Date: Unknown Code(s): I10 - Essential (primary) hypertension Status: Chronic Assessment and Plan: reasonable control at this time follow trend of hemodynamics (5) Diabetes mellitus: Onset Date: Unknown Qualifiers: Chronic kidney disease stage: stage 3 (moderate) Chronic kidney disease stage 3 subtype: unspecified whether 3a or 3b Diabetes mellitus complication detail: with chronic kidney disease Diabetes mellitus complication status: with kidney complications Diabetes mellitus group home insulin use: with continuous churn buttermaker use Diabetes mellitus type: type 2 Qualified Code(s): E11.22 - Type 2 diabetes mellitus with diabetic chronic kidney disease; N18.30 - Chronic kidney disease, stage 3 unspecified; Z79.4 - jail (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 Subjective Date/time seen: 05/26/20 15:11 Appears to be doing reasonably well at this time; no apparent distress voiced; no events/issues overnight or earlier this AM; due to dialysis later today with discharge although due to lateness of day, likely plan discharge in the AM. Exam Narrative: Exam Narrative: General: WD/WN AA female in NAD Heart: normal S1 and S2; no rub Lungs: clear to auscultation Abdomen: soft, nontender, nondistended, positive bowel sounds Extremities: no cyanosis or clubbing; no edema Skin: warm and dry Objective Data Vital Signs Vital Signs: Vital Signs Temp Pulse Resp BP Pulse Ox 05/26/20 14:00 54 L 05/26/20 12:00 35.9 C L 57 L 23 H 149/67 H 100 05/26/20 10:00 55 L 05/26/20 08:28 57 L 05/26/20 08:18 36.2 C L 55 L 20 172/70 H 100 05/26/20 08:00 60 05/26/20 06:00 53 L 05/26/20 04:00 36.1 C L 52 L 20 148/54 H 100 05/26/20 03:12 64 97 05/26/20 02:00 52 L 05/26/20 00:00 57 L 05/25/20 23:43 36.1 C L 61 20 152/61 H 97 05/25/20 23:05 60 96 05/25/20 22:00 62 05/25/20 21:01 64 05/25/20 21:00 64 05/25/20 20:00 36.0 C L 64 20 127/56 L 99 05/25/20 18:00 63 Intake/Output Intake/Output: Intake & Output 05/23/20 05/24/20 05/25/20 05/26/20 23:59 23:59 23:59 23:59 Intake Total 864 390 3463 480 Output Total 2500 300 0 0 Balance -7289 856 1324 480 Meds/Results Medications: Active Medications Generic Name Dose Route Start Last Admin Trade Name Freq PRN Reason Stop Dose Admin Acetaminophen 650 mg 05/22/20 01:11 Acetaminophen 325 Mg Tablet PO Q4H PRN Mild Pain (1-3) or Fever Albuterol 2 puff 05/22/20 01:10 Albuterol Sulfate (*Sp) Aerosol 1 Puff INHALATION Q4H PRN Shortness Of Breath Albuterol 2 puff 05/22/20 02:00 05/26/20 15:09 Albuterol Sulfate (*Sp) Inhaler INHALATION 2 puff Q6HRT [facility] Administration Amiodarone HCl 200 mg 05/26/20 21:00 Amiodarone Hcl 200 Mg Tablet PO Q12HR [facility] Apixaban 2.5 mg 05/22/20 09:00 05/26/20 08:27 Apixaban 2.5
--- NOTE | 2020-05-26 15:35 | PM.IMPN ---
Progress Note: A&P Assessment and Plan (1) Discharge planning issues: Code(s): Z02.9 - Encounter for administrative examinations, unspecified Status: Acute Assessment and Plan: Pt was planning to d/c 05/26/20 but dailysis was delayed and by the time it is done it will be too late for the SNF admission. She will be discharged tomorrow AM (2) Atrial fibrillation with RVR: Code(s): I48.91 - Unspecified atrial fibrillation Status: Acute Assessment and Plan: Likely secondary to COVID infection -Improved today and in sinus rhythm. Continue amiodarone 200mg BID and metoprolol tartrate 75mg Q12 -Last HR 54 -Continue to monitor. Pt has no CP (3) Acute respiratory failure with hypoxia: Code(s): J96.01 - Acute respiratory failure with hypoxia Status: Acute Assessment and Plan: Resolved. Likely secondary to hypervolemia/ COVID-19 infection although CXR has without infection -pt is now off o2 -CXR actually looks okay -PE seems less likely since she takes eliquis. May consider CTA prior to dialysis if she becomes hypoxic again. Wells criteria 1.5, less likely. no LE DVT (4) COVID-19: Code(s): U07.1 - COVID-19 Status: Acute Assessment and Plan: Stable -outside the window of isolation (5) Diastolic congestive heart failure: Qualifiers: Heart failure chronicity: unspecified Qualified Code(s): I50.30 - Unspecified diastolic (congestive) heart failure Code(s): I50.30 - Unspecified diastolic (congestive) heart failure Status: Chronic Assessment and Plan: Chronic -Appears euvolemic at this time -monitor (6) Diabetes mellitus: Onset Date: Unknown Qualifiers: Diabetes mellitus type: type 2 Diabetes mellitus termite control servicer insulin use: with correction use Diabetes mellitus complication status: with kidney complications Diabetes mellitus complication detail: with chronic kidney disease Chronic kidney disease stage: stage 3 (moderate) Chronic kidney disease stage 3 subtype: unspecified whether 3a or 3b Qualified Code(s): E11.22 - Type 2 diabetes mellitus with diabetic chronic kidney disease; N18.30 - Chronic kidney disease, stage 3 unspecified; Z79.4 - [facility] (current) use of insulin Code(s): E11.9 - Type 2 diabetes mellitus without complications Status: Chronic Assessment and Plan: Last glucose 209 but had hypoglycemia in the past -Pt usually on 30u of lantus and 20 u of 70/30 BID at home. This has been decreased due to hypoglycemia -A1c was 9.6 03/30/20 (7) Essential hypertension: Onset Date: Unknown Code(s): I10 - Essential (primary) hypertension Status: Chronic Assessment and Plan: Last bp 149/67 -Monitor blood pressure. Continue metoprolol (8) Afib: Qualifiers: Atrial fibrillation type: unspecified Qualified Code(s): I48.91 - Unspecified atrial fibrillation Code(s): I48.91 - Unspecified atrial fibrillation Status: Chronic Assessment and Plan: As above, continue amiodarone, metoprolol, and Eliquis. (9) ESRD (end stage renal disease) on dialysis: Code(s): N18.6 - End stage renal disease; Z99.2 - Dependence on renal dialysis Status: Chronic Assessment and Plan: On dialsysis MWF but will be switching to and according to CC -Nephrology consulted Additional Plan . Subjective Date/time seen: 05/26/20 15:35 Interval history: Pt is a 69 y/o female here for COVID and afib RVR. Pt was seen today and states she is doing well. She was able to walk with therapy today and she felt close to her baseline and denied weakness. She really wants to go home but she is trying to get a ramp to her house and she is unable to get one at this time. Because of this, she is unable to get into and out of her house which is a problem since she does dialysis. She denies CP, SOB,
[2020-05-26 17:09] LABS: Glucose Point of Care 201 (65-105)
--- NOTE | 2020-05-26 19:50 | PC.NURSE ---
Patient taken to dialysis via bed.
--- NOTE | 2020-05-26 23:08 | PHAR ---
Evening medications administered late due to dialysis treatment.
[2020-05-26] MEDS: HEPARIN SODIUM 1,000 UNITS/ML VIAL 1000 UNITS IV PUSH (23:54)
--- NOTE | 2020-05-26 23:59 | PC.NURSE ---
Patient finished with dialysis and back to room
[2020-05-27] VITALS (12 sets, daily range): BP systolic 115–138; BP diastolic 41–62; PULSE 54–61; RESP 20; TEMP 35.9–36.2; O2SAT 96–100
[2020-05-27] MEDS: METOPROLOL TARTRATE 25 MG TABLET 75 MG PO ×2 (00:04→08:21)
[2020-05-27] MEDS: AMIODARONE HCL 200 MG TABLET PO ×2 (00:05→08:22)
[2020-05-27] MEDS: APIXABAN 2.5 MG TABLET PO ×2 (00:05→08:22)
[2020-05-27] MEDS: ALBUTEROL SULFATE (*SP) INHALER 2 PUFF INHALATION (00:06)
[2020-05-27] MEDS: TIMOLOL MALEATE 0.5% OP SOLN 5 ML BOTTLE 1 DROP EACH EYE ×2 (00:06→08:43)
[2020-05-27] MEDS: BRIMONIDINE TARTRATE 0.2% OP SOLN 5 ML BTL 1 DROP EACH EYE ×2 (00:06→08:43)
[2020-05-27 00:07] LABS: Glucose Point of Care 188 (65-105)
[2020-05-27] MEDS: FERROUS SULFATE 324 MG TABLET PO (08:21)
[2020-05-27] MEDS: DEXAMETHASONE SOD PHOS INJ 4 MG/ML VIAL 6 MG IV PUSH (08:22)
[2020-05-27] MEDS: SIMVASTATIN 20 MG TABLET PO (08:22)
[2020-05-27] MEDS: PANTOPRAZOLE 40 MG TABLET PO (08:22)
[2020-05-27] MEDS: LOSARTAN POTASSIUM 100 MG TABLET PO (08:22)
[2020-05-27] MEDS: INSULIN GLARGINE (*BKC) 100 UNITS/ML 25 UNITS SUB-Q (08:25)
[2020-05-27 08:46] LABS: Glucose Point of Care 150 (65-105)
--- NOTE | 2020-05-27 11:02 | PM.PNCARD ---
Progress Note: A&P Assessment and Plan (1) Atrial fibrillation with rapid ventricular response: Code(s): I48.91 - Unspecified atrial fibrillation Status: Acute Assessment and Plan: Continue amiodarone 200 mg b.i.d.. Continue metoprolol tartrate 50 mg 1.5 tablets BID Continue Eliquis 2.5 mg every 12 hours. Monitor for bleeding. Office follow-up has been scheduled. (2) COVID-19: Code(s): U07.1 - COVID-19 Status: Acute Assessment and Plan: Per primary service. Off O2. COVID-19 isolation precautions. (3) ESRD (end stage renal disease) on dialysis: Code(s): N18.6 - End stage renal disease; Z99.2 - Dependence on renal dialysis Status: Chronic Assessment and Plan: Hemodialysis volume management Per nephrology. (4) Pulmonary hypertension: Onset Date: Unknown Code(s): I27.20 - Pulmonary hypertension, unspecified Status: Acute Assessment and Plan: Severe by echo March 2020 RVSP 68 mm Hg. Continue treatment of KIERRA with CPAP as tolerated. (5) CHF (congestive heart failure): Qualifiers: Heart failure chronicity: unspecified Heart failure type: unspecified Qualified Code(s): I50.9 - Heart failure, unspecified Code(s): I50.9 - Heart failure, unspecified Status: Acute Assessment and Plan: History of heart failure with preserved ejection fraction. Patient appears to be clinically euvolemic at present. Continue to monitor volume status. Subjective Date/time seen: 05/27/20 11:02 Interval history: Follow-up visit in this 69-year-old woman with: Paroxysmal atrial fibrillation and comorbidities including morbid obesity and end-stage renal disease on hemodialysis. 05/26/2020: Patient is asymptomatic this morning eating her breakfast upon entering the room. Plans to have dialysis today. There apparently are some considerations of possibly discharging her later today. Date of service 05/27/2020: Patient is doing well this morning, discharge was delayed because of lateness of dialysis. Being switched to Tuesday. Telemetry shows no atrial fibrillation overnight. Pulse 50 5-61 beats per minute. Remains off oxygen. Review of Systems Constitutional: Constitutional: Reports no additional constitutional complaints Cardiovascular: Cardiovascular: Denies chest pain and Denies palpitations Gastrointestinal: Gastrointestinal: Denies abdominal pain Neurologic: Reports system reviewed and no additional complaints, except as documented Exam Const: General: comfortable and no acute distress HENMT: Mouth: Yes moist mucous membranes Eyes: EOM: EOMs intact bilaterally Neck: Neck: supple Resp: Effort & Inspection: normal respiratory effort Cardio: Rate: regular rate Rhythm: regular rhythm Skin: General skin exam: normal color Neuro: Cognition (Neuro): normal cognition Speech: normal speech Objective Data Vital Signs Vital Signs: Vital Signs - 24 hr 05/26/20 12:00 05/26/20 14:00 05/26/20 16:00 Temperature 96.7 F L Pulse Rate 57 L 54 L 57 L Respiratory Rate 23 H Blood Pressure 149/67 H Pulse Oximetry 100 05/26/20 17:21 05/26/20 18:00 05/26/20 19:50 Temperature 96.6 F L Pulse Rate 57 L 65 Respiratory Rate 24 H Blood Pressure 151/68 H Pulse Oximetry 100 100 05/26/20 20:00 05/26/20 20:05 05/26/20 20:13 Temperature 96.6 F L Pulse Rate 64 65 64 Respiratory Rate 16 Blood Pressure 161/67 H 157/72 H Pulse Oximetry 05/26/20 20:30 05/26/20 20:45 05/26/20 21:00 Temperature Pulse Rate 61 60 57 L Respiratory Rate Blood Pressure 153/67 H 158/71 H 133/67 Pulse Oximetry 05/26/20 21:15 05/26/20 21:30 05/26/20 21:45 Temperature Pulse Rate 58 L 6
--- NOTE | 2020-05-27 13:14 | PCOTNOTE ---
Attempted to see patient, patient dressed and ready to be discharged. Patient assisted up to w/c with w/w with CGA, but declined to participate in any other OT activities. Treatment not completed this date.
== END 2020-05-27 14:00 | DRG 177 ==
LOC: ANH3MEDSUR 09:01 → ANHIMU 05-26 09:48 → ANH3MEDSUR 05-29 14:22 → ANHIMU 05-29 14:22
PROVIDERS: Internal Medicine Nephrology; Admitting Provider Family Medicine; PCP Family Medicine; Visit Provider Physician Assistant
DX: U07.1 COVID-19 (principal); J96.01 Acute respiratory failure with hypoxia; N18.6 End stage renal disease; I13.2 Hypertensive heart and chronic kidney disease with heart failure and with stage 5 chronic kidney disease, or end stage renal disease; I50.32 Chronic diastolic (congestive) heart failure; Z68.41 Body mass index [BMI] 40.0-44.9, adult; E66.2 Morbid (severe) obesity with alveolar hypoventilation; E11.22 Type 2 diabetes mellitus with diabetic chronic kidney disease; I27.20 Pulmonary hypertension, unspecified; I48.91 Unspecified atrial fibrillation; Z99.2 Dependence on renal dialysis; E11.42 Type 2 diabetes mellitus with diabetic polyneuropathy; J44.9 Chronic obstructive pulmonary disease, unspecified; E78.5 Hyperlipidemia, unspecified; I08.1 Rheumatic disorders of both mitral and tricuspid valves; H40.9 Unspecified glaucoma; Z79.01 Long term (current) use of anticoagulants; Z79.4 Long term (current) use of insulin; Z79.899 Other long term (current) drug therapy; Z98.42 Cataract extraction status, left eye; Z98.41 Cataract extraction status, right eye
CPT/HCPCS: 36415; 71045; 80048; 80069; 80076; 82948; 83735; 85025; 85027; 86706; 87070; 87205; 87340; 93005; 93970; 94640; 97110; 97161; 97165; 97530; 97535; A9270; G0257; J0282; J1100; J1644; J1815; J2405; J7030

== ENCOUNTER 2020-07-19 04:41 | Inpatient (IN) | payer MEDICARE, OTHER, SELFPAY ==
[2020-07-19] VITALS (32 sets, daily range): BP systolic 97–183; BP diastolic 26–87; PULSE 69–137; RESP 13–25; TEMP 36–37.6; O2SAT 93–100; BMI 38.5; BMI 38.9
--- NOTE | ~2020-07-19 | XR_ITS ---
XR chest 1V DATE: 07/19/2020 05:15 INDICATION: Weakness TECHNIQUE: AP chest COMPARISON: 05/23/2020 portable AP chest FINDINGS: Right internal jugular central venous catheter tip overlies the superior vena cava. Cardiomegaly. Aortic arch calcification. Mild infiltrate or atelectasis at the left lower lung. The lungs otherwise appear clear. No evidence of pneumothorax. Degenerative spurring of the thoracic and lumbar spine. Diffuse osteopenia. IMPRESSION: Mild patchy infiltrate or atelectasis in the left lower lung Cardiac megaly, aortic atherosclerosis Right internal jugular central venous catheter; no evidence of pneumothorax Reviewed, dictated and finalized at location A.
--- NOTE | ~2020-07-19 | US_ITS ---
EXAMINATION: US abdomen limited EXAM DATE: 07/20/2020 16:01 INDICATION: Elevated LFTs. TECHNIQUE: Multiple grayscale and Doppler images of the abdomen right upper quadrant were obtained (b y a technologist who performed the scan) and subsequently reviewed. Comparison is made to prior exami nation from 04/17/2020. FINDINGS: The pancreatic head and body are normal in appearance. The pancreatic tail is not visualized. The l iver has normal echogenicity and contour. There are no focal liver lesions identified. There is no evidence of intrahepatic biliary duct dilation. Portal venous flow was seen in the hepatopedal, nor mal direction and has normal Doppler waveform. There is right renal indeterminate cystic region, could be 2 cysts contiguous, or a single cystic mas s region measuring 7.2 x 4.1 x 4.4 cm. If it is a single cystic lesion, the septation appears thick. Dimensions of this lesion on ultrasound 03/28/2020 at 5.7 x 3.6 x 3.5 cm, and the septation not presen t on that exam. Has more complex appearance today. Common bile duct measures 5 mm, which is normal. The gallbladder wall is normal in thickness, with ex pected amount of distention. No sonographic evidence of pericholecystic fluid. Multiple small galls tones are present. Technologist performing exam reports patient did not demonstrate sonographic Murp hy's sign. Please note that this sign is less reliable in patients who have received pain medication . IMPRESSION: 1. Right kidney lesion, interval development of complexity/septation. Could be from another cyst whi ch has developed above the previously described cyst. Can't exclude cystic renal cell cancer. Recomme nd consult for further management in this patient with kidney insufficiency or failure. 2. Cholelithiasis. Reviewed, dictated and finalized at location A. IMPRESSION: 1. Right kidney lesion, interval development of complexity/septation. Could be from another cyst which has developed above the previously described cyst. Can 't exclude cystic renal cell cancer. Recommend consult for further managemen t in this patient with kidney insufficiency or failure. 2. Cholelithiasis.
--- NOTE | ~2020-07-19 | CT_ITS ---
EXAMINATION: CTA brain carotid EXAM DATE: 07/19/2020 07:11 INDICATION: MCA stroke. Left hemiparesis. Abnormal head CT. TECHNIQUE: Noncontrast head CT. Spiral CTA of the carotid arteries was performed with intravenous i njection 100 cc of Omnipaque 350. Axial, coronal, sagittal reformatted images reviewed. Additional r eformatted images created on dedicated 3-D workstation. NASCET comparable standard used to assess th e degree of arterial stenosis. Spiral CT angiogram cerebral arteries performed with the same intrave nous injection of contrast. Source images of the brain CTA transferred to dedicated workstation for 3 -D rotational image creation. Coronal, sagittal maximum intensity pixel images also reviewed. The d ose-length product (DLP) for this examination was 1063.74 mGy-cm. The exposure was tailored accordi ng to patient size, and iterative reconstruction (ASIR) was used as additional dose reduction techniq ue. Correlation is made to head CT same date. FINDINGS: There is acutely thrombosed right M2 middle cerebral artery, appears hyperdense on the nonc ontrast head CT and truncated on this examination (see axial sequence 3 images 146 and 147, coronal s equence 603 image 112. No extracranial carotid plaque or stenosis. There is tortuosity to the internal carotid arteries. The left vertebral artery is dominant, both are patent. Tortuosity to the left carotid artery about 4 cm from the origin causing a kinked appearance. Mild bilateral carotid siphon arterial sclerosis withou t stenosis. There is no carotid or vertebral basilar arterial dissection or fibromuscular dysplasia. There are no cerebral artery aneurysms. The sagittal, transverse and sigmoid sinuses enhance normal ly, no venous sinus thrombosis. Internal cerebral veins also enhance normally. Moderate-sized right MCA distribution acute infarction. No hemorrhagic conversion. Incidental Findings: Bilateral cataract surgery. Right vocal cord is midline, could indicate paralysi s. IMPRESSION: 1. Acutely thrombosed right M2 branch at the superior margin of sylvian fissure. Moderate-sized righ t frontoparietal infarction. 2. Bilateral carotid bulb 0% stenosis. 3. Possible right vocal cord paralysis. I discussed this acute thrombosed vessel with Debbie Bolanos at 07/19/2020 15:19 CDT. Reviewed, dictated and finalized at location A. IMPRESSION: 1. Acutely thrombosed right M2 branch at the superior margin of sylvian fissur e. Moderate-sized right frontoparietal infarction. 2. Bilateral carotid bulb 0% stenosis. 3. Possible right vocal cord paralysis. I discussed this acute thrombosed vessel with Debbie Bolanos at 07/19/2020 15: 19 CDT.
--- NOTE | ~2020-07-19 | CT_ITS ---
EXAMINATION: CT brain wo con DATE: 07/19/2020 05:14 INDICATION: Left sided paresis. Left facial droop. Altered mental state. TECHNIQUE: Computed tomography (CT) of the head was performed without intravenous contrast. The mA wa s adjusted according to patient size. Iterative reconstruction technique was employed. Exam dose: 60 5.33 mGy-cm total exam DLP. COMPARISON: 03/29/2020 CT brain FINDINGS: There is interval subtle hypodensity and loss of mueller-white matter differentiation within t he right temporal parietal area in the right middle cerebral artery territory suggesting acute or sub acute right cerebrovascular accident. A subtle hyperdense presumed posterior sylvian M2 branch occlusion is suggested in the right sylvian fissure. Consider MRI examination with diffusion for further evaluation. No intracranial mass lesion or hemorrhage, midline shift or mass effect effect is noted otherwise. No subdural or epidural hematoma. The orbital contents are unremarkable. The mastoid air cells and included paranasal sinuses are crissy lly developed and aerated. No fracture or bone destruction of the cranial vault. IMPRESSION: Acute or subacute right temporal parietal cerebrovascular accident within the middle cer ebral artery territory Reviewed, dictated and finalized at Location A. Reviewed, dictated and finalized at location A. IMPRESSION: Acute or subacute right temporal parietal cerebrovascular accident within the middle cerebral artery territory
--- NOTE | ~2020-07-19 | XR_ITS ---
EXAMINATION: XR barium swallow modified EXAM DATE: 07/23/2020 12:38 INDICATION: Dysphagia, aphasia, stroke. TECHNIQUE: Modified barium esophagram was performed by speech pathologist with radiologist Dr. Ward Teresa present to administered fluoroscopy. Speech pathologist administered barium in varying consis tencies as per speech pathologist documentation. This was recorded on tape. There was total fluorosc opic time of 1.2. The DAP for this procedure was 9.5 Gycm2. A total of 1 images sent to PACS from t exam. FINDINGS: Oral stage: Delayed trigger. Pharyngeal phase: Reduced closure . Laryngeal penetration: Demonstrated. Aspiration: Demonstrated. Laryngeal sensitivity: Present. IMPRESSION: Aspiration demonstrated; Please refer to speech pathologist findings and specific feedi ng recommendations. Reviewed, dictated and finalized at location A. IMPRESSION: Aspiration demonstrated; Please refer to speech pathologist findi ngs and specific feeding recommendations.
--- NOTE | ~2020-07-19 | XR_ITS ---
EXAMINATION: XR chest port-a-cath/central EXAM DATE: 07/24/2020 09:18 INDICATION: Central line placement. TECHNIQUE: Portable AP frontal chest x-ray was obtained. Comparison is made to prior examination from 07/19/2020. FINDINGS: Interval placement of left-sided IJ central line, tip projecting over cavoatrial junction. There is a right-sided dialysis catheter, tip projecting over the mid SVC level. Improvement in previ ously seen retrocardiac airspace disease. There are no pleural effusions. Cardiac silhouette is prom inent but magnified on this AP technique. There is no pneumothorax suspected. The bones and soft t issues are unremarkable. IMPRESSION: 1. No acute cardiopulmonary findings. 2. Improvement in retrocardiac airspace disease. Reviewed, dictated and finalized at location A.
--- NOTE | ~2020-07-19 | CT_ITS ---
EXAMINATION: CT brain wo con DATE: 07/21/2020 11:40 INDICATION: Acute right frontoparietal infarct. TECHNIQUE: Computed tomography (CT) of the head was performed without intravenous contrast. The mA wa s adjusted according to patient size. Iterative reconstruction technique was employed. The dose-lengt h product was 605.33 mGy-cm. COMPARISON: Head CT 07/19/2020 FINDINGS: There is an acute infarct involving the right frontal and parietal lobes, right insula, and lateral aspect of the right basal ganglia with swelling of the tissue. Again seen is thrombus in a r ight M2 middle cerebral artery. There is no intracranial hemorrhage or abnormal mass lesion. The vent ricles are normal in size. There are likely changes of ocular lens replacement surgeries. The paranas al sinuses are clear. The mastoid air cells are normal. IMPRESSION: 1. Acute infarct in right frontal and parietal lobes, right insula, and the right basal ganglia witho ut change in distribution. Reviewed, dictated and finalized at location A. IMPRESSION: 1. Acute infarct in right frontal and parietal lobes, right insula, and the rig ht basal ganglia without change in distribution.
--- NOTE | 2020-07-19 04:47 | ECG_ITS ---
Measurements Intervals [place] Rate: 72 P: 45 [place]: 161 QRS: 1 QRSD: 113 T: 74 QT: 424 QTc: 467 Interpretive Statements SINUS RHYTHM INCOMPLETE RIGHT BUNDLE BRANCH BLOCK BORDERLINE ST-T WAVE ABNORMALITY- HIGH LATERAL LEADS BASELINE ARTIFACT- I, II, AVR BORDERLINE ECG Electronically Signed On 07-19-2020 7:47:17 CDT by Garrett Bucio D.O.
[2020-07-19 04:48] LABS: Glucose Point of Care 199 (65-105)
[2020-07-19 05:09] LABS: Basophils Percent Auto 0.2 % (0.2-1.2); Eosinophils Percent Auto 0.1 % (0-4.4); Immature Granulocyte Absolute 0.09 K/mm3 (0.00-0.031); Immature Granulocyte Percent A 0.9 % (0-0.5); Lymphocytes Absolute Auto 0.76 K/mm3 (0.9-3.2); Lymphocytes Percent Auto 7.4 % (18.3-44.2); Mean Corpuscular HGB Conc 31.6 g/dl (32-36); Mean Corpuscular Hemoglobin 26.7 pg (26-34); Mean Corpuscular Volume 84.6 fl (80-100); Mean Platelet Volume 10.1 fl (7.4-10.4); Monocytes Absolute Auto 0.7 K/mm3 (0.1-0.6); Monocytes Percent Auto 6.6 % (2.6-8.5); Neutrophils Absolute Auto 8.7 K/mm3 (1.3-6.7); Neutrophils Percent Auto 84.8 % (45.5-73.1); Platelet Count Result 164 k/mm3 (150-375); Red Blood Count 4.49 M/mm3 (4.2-5.4); Red Cell Distribution Width 18.8 % (11.5-14.5); White Blood Count 10.2 K/mm3 (4.5-10.0)
[2020-07-19 05:15] LABS: Alanine Aminotransferase 70 U/L (4-35); Albumin Level 3.7 g/dL (3.5-5.1); Alkaline Phosphatase 81 U/L (38-126); Anion Gap 14 mmol/L (8-16); Aspartate Amino Transferase 206 U/L (14-36); Bilirubin,Total 0.8 mg/dL (0.2-1.3); Blood Urea Nitrogen 45 mg/dL (7-17); Calcium 10.8 mg/dL (8.4-10.2); Carbon Dioxide 25 mmol/L (22-30); Chloride 100 mmol/L (98-107); Estimated CRCL calculation 7 ml/min; Estimated Glomerular Filt Rate 6; Glucose 216 mg/dL (65-105); Potassium 6.1 mmol/L (3.4-5.0); Sodium 139 mmol/L (137-145)
[2020-07-19 05:24] LABS: Partial Thromboplastin Time 30.1 SECONDS (22.3-36.8); Prothrombin Time 14.1 Seconds (11.1-14.7)
[2020-07-19 05:30] LABS: Troponin I 0.063 ng/mL (0.000-0.034)
[2020-07-19] MEDS: INSULIN HUMAN REGULAR (*BKC) 100 UNITS/ML 10 UNITS IV PUSH (05:41)
[2020-07-19] MEDS: DEXTROSE 50% 25 GM/50 ML SYRINGE IV PUSH (05:41)
[2020-07-19] MEDS: CALCIUM GLUCONATE 1,000 MG/10 ML VIAL 1000 MG IV PUSH (05:41)
[2020-07-19] MEDS: SODIUM CHLORIDE 0.9% IV 100 ML (05:46)
[2020-07-19 05:47] LABS: Add Urine Microscopic? YES; Appearance Urine Cloudy (Clear); Bacteria Urine Trace /hpf; Bilirubin Urine 1+ (Negative); Blood Urine Negative (Negative); Color Urine Amber (Yellow); Glucose Urine UA Negative (Negative); Ketones Urine Negative (Negative); Leukocyte Esterase Ur Trace LEU/UL (Negative); Mucus Urine Rare /lpf; Nitrate Urine Negative (Negative); Protein Urine 2+ mg/dL (Negative); RBC Urine 0-2 /hpf (0-2); Specific Grav Ur 1.021 (1.001-1.035); Squamous Epithelial Cell Urine Many /hpf (Few)
--- NOTE | 2020-07-19 06:34 | ED.GENADULT ---
HPI - General Adult General Chief complaint: Altered Mental Status <Cruz Abreu MD - Last Filed: 07/19/20 07:09> Stated complaint: ams <Cruz Abreu MD - Last Filed: 07/19/20 07:09> Time Seen by Provider: 07/19/20 04:45 <Cruz Abreu MD - Last Filed: 07/19/20 07:09> History of Present Illness HPI narrative: Patient is a 70-year-old female who presents the emergency department with chief complaint of strokelike symptoms. The patient was brought in by EMS after she had earlier today had a dialysis access placed at [facility] patient was discharged back home and sometime between then and arrival in the emergency department patient developed left-sided facial droop left upper extremity weakness and left lower extremity weakness. The patient reports no prior history of stroke. The patient's last known well is unknown currently <Cruz Abreu MD - Last Filed: 07/19/20 07:09> Related Data Home medications: Home Medications Medication Instructions Recorded Confirmed insulin aspar prot-insulin aspart 20 unit SUB-Q BID 03/08/19 05/22/20 100 unit/mL (70-30) subcutaneous pen insulin glargine 100 unit/mL (3 30 unit SUB-Q DAILY 03/08/19 05/22/20 mL) subcutaneous pen simvastatin 20 mg tablet 20 mg PO DAILY 03/08/19 05/22/20 brimonidine 0.2 %-timolol 0.5 % 1 drop EACH EYE Q12H 05/01/19 05/22/20 eye drops albuterol sulfate [Ventolin HFA] 2 puff INHALATION QID PRN 05/22/20 05/22/20 ferrous sulfate 325 mg PO BID 05/22/20 05/22/20 losartan 100 mg PO DAILY 05/22/20 05/22/20 sucralfate 0.5 g PO TID 05/22/20 05/22/20 <Cruz Abreu MD - Last Filed: 07/19/20 07:09> Allergies/adverse reactions: Allergies Allergy/AdvReac Type Severity Reaction Status Date / Time lisinopril Allergy Unknown dizziness Verified 07/19/20 07:23 clopidogrel AdvReac Intermediate unkn own Verified 07/19/20 07:23 <Cruz Abreu MD - Last Filed: 07/19/20 07:09> Review of Systems Review of Systems: Narrative: A 10 system review of systems was completed on the patient and is negative except for what is stated in the HPI. Nursing and ancillary documentation was reviewed. 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 Morbid obesity Obstructive sleep apnea Osteomyelitis Left 5th toe status post amputation. Pulmonary hypertension Moderate pulmonary hypertension with an estimated peak RVSP 56 mmHg on echocardiogram in March 2020. <Cruz Abreu MD - Last Filed: 07/19/20 07:09> Surgical History Surgical History: Surgical History Amputation of fifth toe of left foot Due to osteomyelitis. History of bilateral cataract extraction <Cruz Abreu MD - Last Filed: 07/19/20 07:09> Family History Family History: Family History Mother , heart attack Diabetes mellitus Father Diabetes mellitus Cerebrovascular accident Leukemia <Cruz Abreu MD - Last Filed: 07/19/20 07:09> Social History Social History: Social History Social Hi
[2020-07-19 08:02] LABS: Reflex Lactic Acid Yes or No Add Lactic
[2020-07-19 08:39] LABS: Lactic Acid 2.5 mmol/L (0.7-2.1)
[2020-07-19 08:58] LABS: Troponin I 0.111 ng/mL (0.000-0.034)
--- NOTE | 2020-07-19 09:30 | PC.NURSE ---
Patient states receives dialysis on Tue, and Tue. States did receive dialysis on .
[2020-07-19] MEDS: ASPIRIN 81 MG CHEWABLE TABLET 324 MG PO (11:21)
[2020-07-19 12:23] LABS: Troponin I 0.158 ng/mL (0.000-0.034)
--- NOTE | 2020-07-19 13:50 | PM.CNNEP ---
Assessment and Plan Assessment and plan (1) End stage renal disease: Code(s): N18.6 - End stage renal disease Status: Chronic Assessment and Plan: HD today and continue T/T/S schedule follow electrolytes, volume status, and clearance (2) Acute cerebrovascular accident (CVA): Code(s): I63.9 - Cerebral infarction, unspecified Status: Acute Assessment and Plan: as noted by imaging on admission Neurology consulted PT/OT ordered Speech therapy evaluation (3) Hyperkalemia: Code(s): E87.5 - Hyperkalemia Status: Acute Assessment and Plan: dialysis should correct follow trend (4) Essential hypertension: Onset Date: Unknown Code(s): I10 - Essential (primary) hypertension Status: Chronic Assessment and Plan: reasonable control at this time follow trend of hemodynamics (5) Afib: Qualifiers: Atrial fibrillation type: unspecified Qualified Code(s): I48.91 - Unspecified atrial fibrillation Code(s): I48.91 - Unspecified atrial fibrillation Status: Chronic Assessment and Plan: continue rate control strategy hold anticoagulation due to #2 (6) Diabetes mellitus: Onset Date: Unknown Qualifiers: Chronic kidney disease stage: stage 3 (moderate) Chronic kidney disease stage 3 subtype: unspecified whether 3a or 3b Diabetes mellitus complication detail: with chronic kidney disease Diabetes mellitus complication status: with kidney complications Diabetes mellitus care home insulin use: with care home use Diabetes mellitus type: type 2 Qualified Code(s): E11.22 - Type 2 diabetes mellitus with diabetic chronic kidney disease; N18.30 - Chronic kidney disease, stage 3 unspecified; Z79.4 - half sole fitter (current) use of insulin Code(s): E11.9 - Type 2 diabetes mellitus without complications Status: Chronic Assessment and Plan: follow accuchecks glycemic control Will continue to follow. History of Present Illness Reason for Consult Consult date: 07/19/20 Reason for consult: end stage renal disease Chief Complaint Chief complaint: Acute ischemic stroke/ESRD needing dialysis/hyperk History of Present Illness Narrative: Most of the information I have obtained is from review of the electronic medical record, discussion with the ER physician earlier today, and my personal history in taking care of this patient in the past as it is difficult for the patient to provide me with any meaningful history. The patient is a 70-year-old female with a past medical history as outlined below who presented to [facility] ER earlier today for evaluation possible stroke. Apparently, the patient had some type of outpatient procedure done at [facility] yesterday although I am unclear on the specific procedure (dialysis catheter placement??) . She was apparently discharged around 1:00pm. that afternoon and then it was noted early this morning that she was somewhat slow to respond in association with a left-sided facial droop and left arm weakness. EMS was called given these new findings and given the concern for possible acute CVA, she was brought to the emergency room here at [facility] for further evaluation. I am not entirely clear how long the symptoms were present as initially was reported that she was in her usual health when she was discharged from [facility] at 1:00 p.m. but then other records indicate that she had had symptoms of this for a day or two. Workup and evaluation emergency room demonstrated the patient to be hemodynamically stable and a stat CT scan of the brain demonstrated acute/subacute right temporal parietal CVA within the middle cerebral artery territory. A subsequent CT angiogram of the head was done to assess of the possibility of some type of intervention but for reasons that are not entirely clear to me, the results were not availa
--- NOTE | 2020-07-19 14:15 | PM.IMHP ---
H&P: HPI History of Present Illness Date/Time: 07/19/20 14:15 Chief Complaint: Stroke-like symptoms. Narrative: This is a 70-year-old morbidly obese female with atrial fibrillation, chronic kidney disease now dialysis, hypertension, and sleep apnea who presented to the emergency department earlier today via EMS from home for evaluation of stroke-like symptoms. She is not able to provide me much in the way of history given her current clinical condition and as such a majority of the following is obtained via a review of her electronic medical records. She tells me that her brother Jh is her emergency contact however she does not have his phone number and we been unable to locate a phone number for him at this time. In any regard the patient had a tunneled dialysis catheter placed at [place] within the last couple of days and is my understanding that she was discharged home yesterday. Early this morning she was slow to respond with left-sided facial droop and left arm weakness. Initially she told EMS personnel that her symptoms had been present ?for a day or 2? however that cannot be verified. Brain CT obtained at 05:14 showed acute or subacute right temporoparietal cerebrovascular accident within the middle cerebral artery territory with the suggestion of a subtle hyperdense presumed posterior sylvian M2 branch occlusion. A CTA of the head and neck done approximately 2 hours thereafter was read as negative by an outside radiologist however on over read Dr. Teresa notes in acutely thrombosed right M2 branch at the superior margin of the sylvian fissure. I spoke with Dr. Villalpando (neurology) regarding these findings and given the fact that we do not know for certain when she was last seen in her usual state of health and the small size of this artery she would not be a candidate for tPA or thrombectomy. At the time my evaluation the patient is alert and follows commands. She seems to have mumbled speech on occasion and it is difficult for me to understand what she is saying a majority of the time. She was able to tell me that she has been off of her Eliquis for many days prior to the tunnel catheter insertion. She denies headache, vertigo, auditory visual changes, chest pain, and palpitations. Review of Systems Review of Systems: Narrative: Twelve systems were reviewed with pertinent positives and negatives as per HPI. It is difficult to understand her speech but she is able to answer yes no questions without issue. She specifically denies fever, chills, and sweats. No recent cold or flu symptoms. She denies cough and shortness of breath. Denies dysphagia. No nausea or vomiting. No dysuria. Except as documented, all other systems were reviewed and are negative. FORMERLY [facility] Past Medical History Medical History (Updated 07/19/20 @ 14:09 by Debbie Bolanos PA-C) Arthritis Cardiac arrest (03/29/20) Etiology of such is not entirely clear though possibly arrhythmogenic as she had recently been started on sotalol with prolonged QT on arrival though no ventricular arrhythmias noted during her hospitalization. 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 Diastolic congestive heart failure Echocardiogram on 0 03/31/2020 showed hyperdynamic left ventricular systolic function with an EF estimated greater than 70%, mildly increased LV wall thickness, and grade 1 diastolic dysfunction. 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 Essential hypertension (Unknown) Glaucoma Insulin dependent type 2 diabetes mellitus Hemoglobin A1c was 9.6% on 03/30/2020. Morbid obesity Obstructive sleep apnea Untreated for many years. Osteomyelitis Left 5th toe status post amputation. Paroxysmal atrial fibrillation Pulmonary hypertension Severe pulmonary hypertension on echocardiogram dated 03/31/2020 with an RVSP of 68 mmHg
--- NOTE | 2020-07-19 14:15 | ADMGEN ---
This patient, Shaniqua Oakley, was admitted to IMU Room 213-01. Patient/family oriented to hospital policies and general routines including ID bracelet, bed and alarms, visiting hours, pain management, procedures, bathroom and other care routines, personal items, smoking policy, room service/diet, and visiting hours. Information on how to activate the Rapid Response Team has been discussed. Patient/Family are encouraged to report perceived risks to care and to ask questions if they do not understand what they are told or what they should do.
--- NOTE | 2020-07-19 14:15 | PC.NURSE ---
Pt admitted to room 213, went straight to hemodiaylsis at 1411. monitoring engineer placed on patient to be monitored while in HD.
[2020-07-19 14:51] LABS: Hepatitis B Surface Antigen Negative (Negative)
[2020-07-19 15:08] LABS: Hepatitis B Surface Anti Res Negative
[2020-07-19 15:15] LABS: Alanine Aminotransferase 76 U/L (4-35); Albumin Level 3.3 g/dL (3.5-5.1); Alkaline Phosphatase 83 U/L (38-126); Ammonia < 9 umol/L (9-30); Aspartate Amino Transferase 248 U/L (14-36); Bilirubin,Total 0.5 mg/dL (0.2-1.3)
[2020-07-19 15:45] LABS: Hemoglobin A1C 6.8 % (<5.7)
[2020-07-19 18:37] LABS: Glucose Point of Care 112 (65-105)
[2020-07-19 21:10] LABS: Glucose Point of Care 115 (65-105)
[2020-07-20] VITALS (20 sets, daily range): BP systolic 91–128; BP diastolic 25–54; PULSE 70–145; RESP 16–24; TEMP 35.6–37.1; O2SAT 94–100; BMI 10.0
[2020-07-20 05:50] LABS: Hemoglobin 11.2 g/dL (12.0-15.0); Mean Corpuscular Hemoglobin 26.7 pg (26-34); Mean Corpuscular Volume 83.5 fl (80-100); Mean Platelet Volume 10.4 fl (7.4-10.4); Platelet Count Result 152 k/mm3 (150-375); Red Blood Count 4.19 M/mm3 (4.2-5.4); Red Cell Distribution Width 18.6 % (11.5-14.5); White Blood Count 9.6 K/mm3 (4.5-10.0)
[2020-07-20 05:57] LABS: INR 1.1; Potassium 4.5 mmol/L (3.4-5.0); Prothrombin Time 14.8 Seconds (11.1-14.7)
[2020-07-20 05:58] LABS: Partial Thromboplastin Time 30.8 SECONDS (22.3-36.8)
[2020-07-20 05:59] LABS: Alanine Aminotransferase 86 U/L (4-35); Albumin Level 3.2 g/dL (3.5-5.1); Alkaline Phosphatase 75 U/L (38-126); Anion Gap 8 mmol/L (8-16); Aspartate Amino Transferase 237 U/L (14-36); Bilirubin,Total 0.7 mg/dL (0.2-1.3); Blood Urea Nitrogen 20 mg/dL (7-17); Calcium 10.2 mg/dL (8.4-10.2); Carbon Dioxide 31 mmol/L (22-30); Chloride 101 mmol/L (98-107); Estimated CRCL calculation 13 ml/min; Estimated Glomerular Filt Rate 11; Glucose 132 mg/dL (65-105); Magnesium 1.8 mg/dL (1.6-2.3); Phosphorus 4.5 mg/dL (2.5-4.5); Sodium 140 mmol/L (137-145)
[2020-07-20 07:01] LABS: Thyroid Stimulating Hormone Reflex 0.018 uIU/mL (0.465-4.68)
[2020-07-20 07:02] LABS: Hepatitis B Surface Antigen Negative (Negative)
[2020-07-20 07:08] LABS: HAV RESULT Negative (Negative); Hepatitis B Core IgM Result Negative (Negative)
[2020-07-20 07:19] LABS: Hepatitis C Virus Antibody Negative (Negative)
[2020-07-20 07:36] LABS: Free T4 Free Thyroxine Reflex 5.36 ng/dL (0.78-2.19)
[2020-07-20 07:59] LABS: Glucose Point of Care 128 (65-105)
--- NOTE | 2020-07-20 09:13 | P.PNIM_ITS ---
Progress Note: A&P Assessment and Plan (1) Acute cerebrovascular accident (CVA): Code(s): I63.9 - Cerebral infarction, unspecified Status: Acute Assessment and Plan: * Right frontoparietal stroke due to thrombosis of right M2 branch * Given history of paroxysmal atrial fibrillation this certainly could be cardioembolic * Home meds list Eliquis 2.5mg BID, on hold recently for dialysis prep * Dosing guidelines recommend HD patients receive 5mg BID (unless over 80 or under 60kg), so will resume 2.5mg BID until HD begun, then 5mg BID * Will stop antiplatelet therapy and resume Eliquis at 2.5mg BID (to begin this PM, to allow nephrology eval first) * PT/OT * [facility] referral vs SNF (CC to coordinate) (2) Paroxysmal atrial fibrillation: Code(s): I48.0 - Paroxysmal atrial fibrillation Status: Acute Assessment and Plan: * Continue your amiodarone and metoprolol * Eliquis 2.5mg BID until dialysis begun, then consider 5mg BID per dosing guidelines (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: Code(s): E05.80 - Other thyrotoxicosis without thyrotoxic crisis or storm; T46.2X5A - Adverse effect of other antidysrhythmic drugs, initial encounter Status: Acute Assessment and Plan: * 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 * Obtain thyroid antibodies including thyroid-stimulating immunoglobulin, CRP * Start methimazole at 20mg/day and titrate dose upward to 40-60mg/day if needed * Continue metoprolol * Consult cardiology regarding question of whether to continue amiodarone (4) End-stage renal disease on hemodialysis: Code(s): N18.6 - End stage renal disease; Z99.2 - Dependence on renal dialysis Status: Acute Assessment and Plan: * Nephrology following (5) Hyperkalemia: Code(s): E87.5 - Hyperkalemia Status: Acute Assessment and Plan: * Resolved * Hold losartan (6) Essential hypertension: Onset Date: Unknown Code(s): I10 - Essential (primary) hypertension Status: Chronic Assessment and Plan: * Blood pressure is running a bit low for acute stroke. Will hold losartan. (7) Diastolic congestive heart failure: Qualifiers: Heart failure chronicity: unspecified Qualified Code(s): I50.30 - Unspecified diastolic (congestive) heart failure Code(s): I50.30 - Unspecified diastolic (congestive) heart failure Status: Chronic Assessment and Plan: * Clinically stable (8) Insulin dependent type 2 diabetes mellitus: Code(s): E11.9 - Type 2 diabetes mellitus without complications; Z79.4 - correction (current) use of insulin Status: Chronic Assessment and Plan: * Basal and sliding scale insulin * Hole home Novolog 70/30 due to hospitalization with dietary restrictions (9) Transaminitis: Code(s): R74.01 - Elevation of levels of liver transaminase levels Status: Acute Assessment and Plan: * Suspect DICKSON * Hepatitis ABC panel negative * RUQ U/s pending (10) Elevated lactic acid level: Code(s): R79.89 - Other specified abnormal findings of blood chemistry Status: Acute Assessment and Plan: * Possibly due to hypoperfusion * Improving (11) Elevated troponin: Code(s): R77.8 - Other specified abnormalities of plasma proteins Status: Acute Assessment and Plan: * Due to end-stage renal disease Subjective Date/time seen: 07/20/20 09:13 Interval history: Admitted 07/19 with left hemiparesis and dysarthria. 07/20: Left side weakness and
--- NOTE | 2020-07-20 09:13 | PM.IMPN ---
Progress Note: A&P Assessment and Plan (1) Acute cerebrovascular accident (CVA): Code(s): I63.9 - Cerebral infarction, unspecified Status: Acute Assessment and Plan: Right frontoparietal stroke due to thrombosis of right M2 branch Given history of paroxysmal atrial fibrillation this certainly could be cardioembolic Home meds list Eliquis 2.5mg BID, on hold recently for dialysis prep Dosing guidelines recommend HD patients receive 5mg BID (unless over 80 or under 60kg), so will resume 2.5mg BID until HD begun, then 5mg BID Will stop antiplatelet therapy and resume Eliquis at 2.5mg BID (to begin this PM, to allow nephrology eval first) PT/OT [facility] referral vs SNF (CC to coordinate) (2) Paroxysmal atrial fibrillation: Code(s): I48.0 - Paroxysmal atrial fibrillation Status: Acute Assessment and Plan: Continue your amiodarone and metoprolol Eliquis 2.5mg BID until dialysis begun, then consider 5mg BID per dosing guidelines (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: Code(s): E05.80 - Other thyrotoxicosis without thyrotoxic crisis or storm; T46.2X5A - Adverse effect of other antidysrhythmic drugs, initial encounter Status: Acute Assessment and Plan: 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 Obtain thyroid antibodies including thyroid-stimulating immunoglobulin, CRP Start methimazole at 20mg/day and titrate dose upward to 40-60mg/day if needed Continue metoprolol Consult cardiology regarding question of whether to continue amiodarone (4) End-stage renal disease on hemodialysis: Code(s): N18.6 - End stage renal disease; Z99.2 - Dependence on renal dialysis Status: Acute Assessment and Plan: Nephrology following (5) Hyperkalemia: Code(s): E87.5 - Hyperkalemia Status: Acute Assessment and Plan: Resolved Hold losartan (6) Essential hypertension: Onset Date: Unknown Code(s): I10 - Essential (primary) hypertension Status: Chronic Assessment and Plan: Blood pressure is running a bit low for acute stroke. Will hold losartan. (7) Diastolic congestive heart failure: Qualifiers: Heart failure chronicity: unspecified Qualified Code(s): I50.30 - Unspecified diastolic (congestive) heart failure Code(s): I50.30 - Unspecified diastolic (congestive) heart failure Status: Chronic Assessment and Plan: Clinically stable (8) Insulin dependent type 2 diabetes mellitus: Code(s): E11.9 - Type 2 diabetes mellitus without complications; Z79.4 - terminal supervisor (current) use of insulin Status: Chronic Assessment and Plan: Basal and sliding scale insulin [facility] home Novolog 70/30 due to hospitalization with dietary restrictions (9) Transaminitis: Code(s): R74.01 - Elevation of levels of liver transaminase levels Status: Acute Assessment and Plan: Suspect DICKSON Hepatitis ABC panel negative RUQ U/s pending (10) Elevated lactic acid level: Code(s): R79.89 - Other specified abnormal findings of blood chemistry Status: Acute Assessment and Plan: Possibly due to hypoperfusion Improving (11) Elevated troponin: Code(s): R77.8 - Other specified abnormalities of plasma proteins Status: Acute Assessment and Plan: Due to end-stage renal disease Subjective Date/time seen: 07/20/20 09:13 Interval history: Admitted 07/19 with left hemiparesis and dysarthria. 07/20: Left side weakness and speech difficulties persist. No c/o pain. Review of Systems Review of Systems: All systems reviewed & are unremarkable except as noted in HPI and below Exam Narrative: Exam Narrative: HEENT: PERRL, sclerae nonicteric, pharyngeal mucosa pink and intact NECK: No JVD, adenopathy, or thyromegaly CHEST: Clear to auscultation. Normal effort. HEART: NL S1/S2, regular, no murmur ABDOMEN: BS+, soft, nontender, no mass, no br
[2020-07-20] MEDS: MIDODRINE HCL 2.5 MG TABLET 5 MG PO ×3 (10:31→18:04)
[2020-07-20] MEDS: APIXABAN 2.5 MG TABLET PO (10:31)
[2020-07-20] MEDS: METOPROLOL TARTRATE 25 MG TABLET PO (10:31)
[2020-07-20] MEDS: FERROUS SULFATE 324 MG TABLET PO ×2 (10:31→18:05)
[2020-07-20] MEDS: PANTOPRAZOLE 40 MG TABLET PO (10:32)
[2020-07-20] MEDS: SIMVASTATIN 20 MG TABLET PO (10:32)
[2020-07-20] MEDS: methiMAzole 10 MG TAB 20 MG PO (10:33)
[2020-07-20] MEDS: BRIMONIDINE TARTRATE 0.2% OP SOLN 5 ML BTL 1 DROP EACH EYE ×2 (10:35→21:18)
[2020-07-20] MEDS: AMIODARONE HCL 200 MG TABLET PO (10:35)
[2020-07-20] MEDS: TIMOLOL MALEATE 0.5% OP SOLN 5 ML BOTTLE 1 DROP EACH EYE ×2 (10:36→21:18)
[2020-07-20 10:37] LABS: Lactic Acid Reflex 1.8 mmol/L (0.7-2.1)
[2020-07-20 11:42] LABS: CRP 22.8 mg/dL (<1.0)
[2020-07-20 11:57] LABS: Total Triiodothyronine (T3) 0.73 NG/ML (0.97-1.69)
[2020-07-20 12:45] LABS: Glucose Point of Care 164 (65-105)
--- NOTE | 2020-07-20 12:57 | WPDNEURCNPN ---
Assessment and Plan Assessment and plan (1) End stage renal disease: Code(s): N18.6 - End stage renal disease Status: Acute (2) Insulin dependent type 2 diabetes mellitus: Code(s): E11.9 - Type 2 diabetes mellitus without complications; Z79.4 - emt intermediate (current) use of insulin Status: Chronic (3) Paroxysmal atrial fibrillation: Code(s): I48.0 - Paroxysmal atrial fibrillation Status: Acute (4) Acute cerebrovascular accident (CVA): Code(s): I63.9 - Cerebral infarction, unspecified Status: Acute Additional Plan mild left hemiparesis with abnormal documented CT scan of the head showing subacute right temporoparietal stroke in the middle cerebral artery distribution chest x-ray with mild patchy infiltration or atelectasis in the left lower lung and acutely thrombosed right M2 branch at the superior margin of the sylvian fissure and moderate size right frontoparietal infarction though with bilateral carotid bulbs 0% stenosis also raising the possibility of right vocal cord paralysis. Consult date: 07/20/20 Time Seen: 12:45 HPI: Shaniqua Oakley is a 70 year old female admitted to the hospital with the ongoing complaints of 1. Morbid obesity 2. Atrial fibrillation 3. Chronic kidney disease for which she is now on dialysis 4. Hypertension 5. Sleep apnea left-sided facial droop with left upper extremity weak with unclear history how long the symptomatology has been there brain CT scan documented acute or subacute right temporoparietal cerebrovascular accident in the distribution of the middle cerebral artery with subtle hyperdensity of the posterior sylvian M2 branch occlusion CTA done 2 hours thereafter revealed acutely thrombosed right M2 branch at the superior margin of the sylvian fissure considering that the duration of this symptomatology was unclear she was admitted here and was not considered as a candidate for tPA or thrombectomy subsequent initial evaluation revealed her to be awake alert with left hemiparesis documentation that she has been of her Eliquis for several days prior to the tunnel catheter insertion for the renal problem for past history particularly pertinent for history of cardiac arrest, long-term anticoagulation, diabetic peripheral neuropathy, diastolic congestive heart failure, end-stage renal disease, essential hypertension, and obstructive sleep apnea in addition to the history of pulmonary hypertension as well, she has also undergone amputation of 5th toe of left foot for osteomyelitis and bilateral cataract extraction, evaluation at this time revealed her to have no leukocytosis hemoglobin 11.2 platelet count 152 protime 14.8 with INR 1.1 a PTT 30.8 blood sugar 164 lactic acid 1.8 UA abnormal hepatitis panel negative Review of Systems Review of Systems: All systems reviewed & are unremarkable except as noted in HPI and below [facility] Past Medical History Medical History Arthritis Cardiac arrest (03/29/20) Etiology of such is not entirely clear though possibly arrhythmogenic as she had recently been started on sotalol with prolonged QT on arrival though no ventricular arrhythmias noted during her hospitalization. 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 Diastolic congestive heart failure Echocardiogram on 0 03/31/2020 showed hyperdynamic left ventricular systolic function with an EF estimated greater than 70%, mildly increased LV wall thickness, and grade 1 diastolic dysfunction. 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 Essential hypertension (Unknown) Glaucoma Insulin dependent type 2 diabetes mellitus Hemoglobin A1c was 9.6% on 03/30/2020. Morbid obesity Obstructive sleep apnea Untreated for many years. Osteomyelitis Left 5th toe status post amputation. Paroxysmal at
--- NOTE | 2020-07-20 15:12 | PM.PNNEP ---
Progress Note: A&P Assessment and Plan (1) End stage renal disease: Code(s): N18.6 - End stage renal disease Status: Chronic Assessment and Plan: HD yesterday and continue T/T/S schedule follow electrolytes, volume status, and clearance (2) Acute cerebrovascular accident (CVA): Code(s): I63.9 - Cerebral infarction, unspecified Status: Acute Assessment and Plan: as noted by imaging on admission Neurology following PT/OT ordered Speech therapy evaluation (3) Hyperkalemia: Code(s): E87.5 - Hyperkalemia Status: Acute Assessment and Plan: corrected with dialysis follow trend (4) Essential hypertension: Onset Date: Unknown Code(s): I10 - Essential (primary) hypertension Status: Chronic Assessment and Plan: reasonable control at this time follow trend of hemodynamics (5) Afib: Qualifiers: Atrial fibrillation type: unspecified Qualified Code(s): I48.91 - Unspecified atrial fibrillation Code(s): I48.91 - Unspecified atrial fibrillation Status: Chronic Assessment and Plan: continue rate control strategy resuming anticoagulation (6) Diabetes mellitus: Onset Date: Unknown Qualifiers: Chronic kidney disease stage: stage 3 (moderate) Chronic kidney disease stage 3 subtype: unspecified whether 3a or 3b Diabetes mellitus complication detail: with chronic kidney disease Diabetes mellitus complication status: with kidney complications 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 Subjective Date/time seen: 07/20/20 15:12 Tolerated dialysis yesterday without any issues or problems; left sided hemiparesis still apparent and noted speech difficulties; remains hemodynamically stable; no apparent distress voiced at the time of my visit; no events overnight or earlier this AM. Exam Narrative: Exam Narrative: General: WD/WN AA female in NAD Heart: normal S1 and S2; no rub Lungs: clear to auscultation Abdomen: soft, nontender, nondistended, positive bowel sounds Extremities: no cyanosis or clubbing; no edema Skin: warm and dry Objective Data Vital Signs Vital Signs: Vital Signs Temp Pulse Resp BP Pulse Ox 07/20/20 14:00 70 07/20/20 12:31 35.8 C L 73 24 H 112/43 L 98 07/20/20 12:00 74 96 07/20/20 10:35 124 H 07/20/20 10:31 124 H 07/20/20 10:00 129 H 07/20/20 09:29 99 07/20/20 08:25 35.6 C L 125 H 22 H 91/25 L 98 07/20/20 08:00 121 H 96 07/20/20 06:00 120 H 07/20/20 04:00 36.1 C L 126 H 16 116/54 L 100 07/20/20 02:00 114 H 07/20/20 00:00 128 H 94 07/19/20 23:42 36.5 C 116 H 20 101/61 94 07/19/20 22:00 119 H 07/19/20 21:30 117/55 L 07/19/20 20:00 37.6 C 125 H 16 97/40 L 94 07/19/20 18:41 36.1 C L 81 20 104/50 L 100 07/19/20 18:00 36.7 C 81 20 146/47 H 07/19/20 17:54 93 128/62 07/19/20 17:45 92 125/55 L 07/19/20 17:30 81 156/56 H 07/19/20 17:15 84 127/41 L 07/19/20 17:00 86 131/85 07/19/20 16:45 77 165/66 H 07/19/20 16:30 78 170/69 H Intake/Output Intake/Output: Intake & Output 07/17/20 07/18/20 07/19/20 07/20/20 23:59 23:59 23:59 23:59 Intake Total 100 320 Output Total 1513 Balance -1413 320 Meds/Results Medications: Active Medications Generic Name Dose Route Start Last Admin Trade Name Freq PRN Reason Stop Dose Admin Albuterol 2 puff 07/19/20 23:24 Albuterol Jones
--- NOTE | 2020-07-20 15:37 | PCSTNOTE ---
Bedside swallow evaluation complete. Please see ST evaluation for details and recommendations.
[2020-07-20 16:48] LABS: Glucose Point of Care 164 (65-105)
--- NOTE | 2020-07-20 19:26 | PM.CNCAR ---
Assessment and Plan Assessment and plan (1) Acute cerebrovascular accident (CVA): Code(s): I63.9 - Cerebral infarction, unspecified Status: Acute Assessment and Plan: Right-sided stroke, probably cardioembolic. She had been off her Eliquis for a week for her graft surgery. This was a moderate-sized stroke and may be subject to hemorrhagic conversion. Her like to continue her Eliquis but at a higher dose, 5 mg b.i.d., when okay with Neurology. (2) Paroxysmal atrial fibrillation: Code(s): I48.0 - Paroxysmal atrial fibrillation Status: Acute Assessment and Plan: Patient continues to have paroxysmal atrial fibrillation with heart rates running in the 120s at times but asymptomatic. Hopefully the amiodarone is reducing the frequency and helping to control heart rate. (3) residential current use of amiodarone: Code(s): Z79.899 - Other assisted (current) drug therapy Status: Acute Assessment and Plan: Patient taking a moderate dose of amiodarone, 200 mg b.i.d., which can cause thyroid and liver problems. However I do not think the patient's current thyroid problems are associated with the amiodarone. It is unlikely the liver problems are as well since she has not been on amiodarone very long period Would like to continue amiodarone 200 mg b.i.d. as her AFib rate is hard to control with other medications because she tends to run a low blood pressure and requires midodrine. (4) Hyperthyroidism: Code(s): E05.90 - Thyrotoxicosis, unspecified without thyrotoxic crisis or storm Status: Acute Assessment and Plan: Patient had a very low TSH in March 2020 prior to initiating amiodarone. I think that the patient's thyroid disease may be thyroiditis and unrelated to the amiodarone use. (5) Diastolic congestive heart failure: Qualifiers: Heart failure chronicity: unspecified Qualified Code(s): I50.30 - Unspecified diastolic (congestive) heart failure Code(s): I50.30 - Unspecified diastolic (congestive) heart failure Status: Chronic Assessment and Plan: Chronic diastolic CHF, stable. Additional Plan Will add sotalol to allergy list History of Present Illness History of Present Illness Consult date/time: 07/20/20 19:26 Requesting physician: Daron Petty MD Consult reason: atrial fibrillation Reason For Visit: Acute ischemic stroke/ESRD needing dialysis/hyperk Narrative: Shaniqua Oakley is a 70-year-old female with a history of paroxysmal atrial fibrillation and end-stage renal disease on dialysis whom I was asked to see at the request of Dr. 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 Also h/o diastolic heart failure, diabetes, hypertension, morbid obesity, obstructive sleep apnea and pulmonary hypertension. In March 2020 she suffered a PEA arrest after a discharge for treatment of PAF with sotalol and there was concern there was a sotalol induced arrhythmia. She was started on amiodarone at that time. She was hospitalized here with COVID pneumonia in May 2020. She was admitted to [facility] on 07/19/2020 with a stroke in left sided weakness. She had been off her Eliquis for about a week, for dialysis access issues requiring surgery which was done recently. CTA showed an acutely thrombosed right M2 branch with a moderate sized right frontoparietal infarction but no carotid disease. Thrombectomy was not indicated. Th
[2020-07-20 20:32] LABS: Glucose Point of Care 151 (65-105)
[2020-07-20] MEDS: INSULIN GLARGINE (*BKC) 100 UNITS/ML 30 UNITS SUB-Q (21:19)
--- NOTE | 2020-07-20 21:45 | PC.NURSE ---
patient will not swallow medication. she lets it sit in her mouth and drools it out. she says that she cannot swallow. nurse to keep encouraging her to swallow medications. nataly shafer aware.
[2020-07-21] VITALS (16 sets, daily range): BP systolic 107–138; BP diastolic 38–103; PULSE 63–84; RESP 16–22; TEMP 35.7–36.8; O2SAT 88–100
[2020-07-21 05:22] LABS: Hemoglobin 10.8 g/dL (12.0-15.0); Mean Corpuscular HGB Conc 32.7 g/dl (32-36); Mean Corpuscular Hemoglobin 26.7 pg (26-34); Mean Corpuscular Volume 81.7 fl (80-100); Mean Platelet Volume 10.4 fl (7.4-10.4); Platelet Count Result 167 k/mm3 (150-375); Red Blood Count 4.04 M/mm3 (4.2-5.4); Red Cell Distribution Width 18.2 % (11.5-14.5); White Blood Count 10.3 K/mm3 (4.5-10.0)
[2020-07-21 05:43] LABS: Lactic Acid Reflex 2.2 mmol/L (0.7-2.1)
[2020-07-21 06:10] LABS: Alanine Aminotransferase 58 U/L (4-35); Albumin Level 3.1 g/dL (3.5-5.1); Alkaline Phosphatase 74 U/L (38-126); Anion Gap 9 mmol/L (8-16); Aspartate Amino Transferase 130 U/L (14-36); Bilirubin,Total 0.7 mg/dL (0.2-1.3); Blood Urea Nitrogen 37 mg/dL (7-17); Calcium 10.1 mg/dL (8.4-10.2); Carbon Dioxide 25 mmol/L (22-30); Chloride 103 mmol/L (98-107); Estimated CRCL calculation 10 ml/min; Estimated Glomerular Filt Rate 8; Glucose 146 mg/dL (65-105); Sodium 137 mmol/L (137-145)
[2020-07-21 08:18] LABS: Reflex Lactic Acid Yes or No Add Lactic
[2020-07-21 08:31] LABS: Glucose Point of Care 148 (65-105)
[2020-07-21] MEDS: BRIMONIDINE TARTRATE 0.2% OP SOLN 5 ML BTL 1 DROP EACH EYE ×2 (09:00→23:25)
[2020-07-21] MEDS: TIMOLOL MALEATE 0.5% OP SOLN 5 ML BOTTLE 1 DROP EACH EYE ×2 (09:00→23:25)
--- NOTE | 2020-07-21 09:28 | P.PNNP_ITS ---
Progress Note: A&P Assessment and Plan (1) End stage renal disease: Code(s): N18.6 - End stage renal disease Status: Chronic Assessment and Plan: * HD yesterday and continue T/T/S schedule * volume status looks okay. * Blood pressure is doing pretty well. * Potassium is okay. * Acid-base balance is good. (2) Acute cerebrovascular accident (CVA): Code(s): I63.9 - Cerebral infarction, unspecified Status: Acute Assessment and Plan: CT shows right temporoparietal infarct * acutely thrombosed right M2 branch of the superior margin of the sylvian fissure * Neurology following * PT/OT ordered * Speech therapy evaluation (3) Hyperkalemia: Code(s): E87.5 - Hyperkalemia Status: Acute Assessment and Plan: * potassium okay today. * Will check in a.m.. (4) Essential hypertension: Onset Date: Unknown Code(s): I10 - Essential (primary) hypertension Status: Chronic Assessment and Plan: * Systolic running 91-137. * Would like to allow blood pressure to be just a little higher. Will reduce metoprolol to 12 and half twice a day. * Heart rate in the 80s. 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 use: with local company intermodal truck driver use Diabetes mellitus complication status: with kidney complications Diabetes mellitus complication detail: with chronic kidney disease Chronic kidney disease stage: stage 3 (moderate) Chronic kidney disease stage 3 subtype: unspecified whether 3a or 3b Qualified Code(s): E11.22 - Type 2 diabetes mellitus with diabetic chronic kidney disease; N18.30 - Chronic kidney disease, stage 3 unspecified; Z79.4 - custodial (current) use of insulin Code(s): E11.9 - Type 2 diabetes mellitus without complications Status: Chronic Assessment and Plan: * follow accuchecks * glycemic control Will continue to follow. Subjective Date/time seen: 07/21/20 09:28 Interval history: Shaniqua is sleepy today. She just had a bath and that wore her out. I discussed with the night nurse. The patient did pretty well except that she did not swallow pills. It is unclear if she was unable to or that she just was not willing to. Exam Narrative: Exam Narrative: General: WD/WN AA female in NAD Heart: normal S1 and S2; no rub Or gallop Lungs: clear to auscultation Abdomen: soft, nontender, nondistended, positive bowel sounds Extremities: no cyanosis or clubbing; no edema Skin: no rash Objective Data Vital Signs Vital Signs: Vital Signs - 24 hr 07/20/20 09:29 07/20/20 10:00 07/20/20 10:30 Temperature Pulse Rate 129 H Respiratory Rate Blood Pressure Pulse Oximetry 99 96 07/20/20 10:31 07/20/20 10:35 07/20/20 12:00 Temperature Pulse Rate 124 H 124 H 74 Respiratory Rate Blood Pressure Pulse Oximetry 96 07/20/20 12:31 07/20/20 14:00 07/20/20 16:00
--- NOTE | 2020-07-21 09:28 | PM.PNNEP ---
Progress Note: A&P Assessment and Plan (1) End stage renal disease: Code(s): N18.6 - End stage renal disease Status: Chronic Assessment and Plan: HD yesterday and continue T/T/S schedule volume status looks okay. Blood pressure is doing pretty well. Potassium is okay. Acid-base balance is good. (2) Acute cerebrovascular accident (CVA): Code(s): I63.9 - Cerebral infarction, unspecified Status: Acute Assessment and Plan: CT shows right temporoparietal infarct acutely thrombosed right M2 branch of the superior margin of the sylvian fissure Neurology following PT/OT ordered Speech therapy evaluation (3) Hyperkalemia: Code(s): E87.5 - Hyperkalemia Status: Acute Assessment and Plan: potassium okay today. Will check in a.m.. (4) Essential hypertension: Onset Date: Unknown Code(s): I10 - Essential (primary) hypertension Status: Chronic Assessment and Plan: Systolic running 91-137. Would like to allow blood pressure to be just a little higher. Will reduce metoprolol to 12 and half twice a day. Heart rate in the 80s. (5) Afib: Qualifiers: Atrial fibrillation type: unspecified Qualified Code(s): I48.91 - Unspecified atrial fibrillation Code(s): I48.91 - Unspecified atrial fibrillation Status: Chronic Assessment and Plan: continue rate control strategy resuming anticoagulation (6) Diabetes mellitus: Onset Date: Unknown Qualifiers: Diabetes mellitus type: type 2 Diabetes mellitus care home insulin use: with care home use Diabetes mellitus complication status: with kidney complications Diabetes mellitus complication detail: with chronic kidney disease Chronic kidney disease stage: stage 3 (moderate) Chronic kidney disease stage 3 subtype: unspecified whether 3a or 3b Qualified Code(s): E11.22 - Type 2 diabetes mellitus with diabetic chronic kidney disease; N18.30 - Chronic kidney disease, stage 3 unspecified; Z79.4 - skilled nursing (current) use of insulin Code(s): E11.9 - Type 2 diabetes mellitus without complications Status: Chronic Assessment and Plan: follow accuchecks glycemic control Will continue to follow. Subjective Date/time seen: 07/21/20 09:28 Interval history: Shaniqua is sleepy today. She just had a bath and that wore her out. I discussed with the night nurse. The patient did pretty well except that she did not swallow pills. It is unclear if she was unable to or that she just was not willing to. Exam Narrative: Exam Narrative: General: WD/WN AA female in NAD Heart: normal S1 and S2; no rub Or gallop Lungs: clear to auscultation Abdomen: soft, nontender, nondistended, positive bowel sounds Extremities: no cyanosis or clubbing; no edema Skin: no rash Objective Data Vital Signs Vital Signs: Vital Signs - 24 hr 07/20/20 09:29 07/20/20 10:00 07/20/20 10:30 Temperature Pulse Rate 129 H Respiratory Rate Blood Pressure Pulse Oximetry 99 96 07/20/20 10:31 07/20/20 10:35 07/20/20 12:00 Temperature Pulse Rate 124 H 124 H 74 Respiratory Rate Blood Pressure Pulse Oximetry 96 07/20/20 12:31 07/20/20 14:00 07/20/20 16:00 Temperature 35.8 C L Pulse Rate 73 70 71 Respiratory Rate 24 H Blood Pressure 112/43 L Pulse Oximetry 98 100 07/20/20 16:03 07/20/20 18:00 07/20/20 20:00 Temperature 36.6 C 36.6 C Pulse Rate 71 71 74 Respiratory Rate 23 H 16 Blood Pressure 123/46 L 128/40 L Pulse Oximetry 97 95 07/20/20 22:00 07/20/20 23:54 07/21/20 00:00 Temperature 37.1 C Pulse Rate 76 79 72 Respiratory Rate 18 18 Blood Pressure 111/54 L Pulse Oximetry 95 95 07/21/20 02:00 07/21/20 04:00 07/21/20 06:00 Temperature 36.1 C L Pulse Rate 76 74 73 Respiratory Rate 16 Blood Pressure 123/41 L Pulse Oximetry 96 07/21/20 08:
[2020-07-21 12:13] LABS: Glucose Point of Care 137 (65-105)
--- NOTE | 2020-07-21 13:31 | PM.PNCARD ---
Progress Note: A&P Assessment and Plan (1) Acute cerebrovascular accident (CVA): Code(s): I63.9 - Cerebral infarction, unspecified Status: Acute Assessment and Plan: Very unfortunate complication. Right-sided stroke, probably cardioembolic a she had been off her Eliquis for a week for her graft surgery. This was a moderate-sized stroke and may be subject to hemorrhagic conversion. -Continue Eliquis but increase to a higher dose, 5 mg b.i.d., if okay with Neurology and Nephrology. (2) Paroxysmal atrial fibrillation: Code(s): I48.0 - Paroxysmal atrial fibrillation Status: Acute Assessment and Plan: Mostly SR. Patient continues to have paroxysmal atrial fibrillation with heart rates running in the 120s at times but asymptomatic. Cont Amiodarone and Metoprolol. 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 Thyroid issues not related amiodarone as this predated initiation. Nonetheless, will need to monitor very closely as amiodarone may complicate management. Continue Amiodarone 200 mg b.i.d. as her AFib rate is hard to control with other medications. (4) Hyperthyroidism: Code(s): E05.90 - Thyrotoxicosis, unspecified without thyrotoxic crisis or storm Status: Acute Assessment and Plan: Defer to primary service. Patient had a very low TSH in March 2020 prior to initiating amiodarone. 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 (5) Diastolic congestive heart failure: Qualifiers: Heart failure chronicity: unspecified Qualified Code(s): I50.30 - Unspecified diastolic (congestive) heart failure Code(s): I50.30 - Unspecified diastolic (congestive) heart failure Status: Chronic Assessment and Plan: Chronic diastolic CHF, stable. Volume management with hemodialysis Subjective Date/time seen: Date of service:07/21/20 13:31 Follow-up for atrial fibrillation, stroke maintaining sinus rhythm generally. PAF noted intermittently earlier in the hospitalization. Denies shortness of breath, chest pain or palpitations. Patient arousable, awake significant dysarthria difficult to understand. Nodding to questions primarily. Review of Systems Constitutional: Constitutional: Reports weakness Eyes: Eyes: Reports no additional eye complaints ENT: Denies nasal congestion Cardiovascular: Cardiovascular: Denies chest pain, Denies pedal edema, Denies lightheadedness, Denies palpitations, Denies dyspnea and Denies dyspnea on exertion Respiratory: Respiratory: Denies cough, Denies dyspnea and Denies dyspnea on exertion Gastrointestinal: Gastrointestinal: Denies abdominal pain Genitourinary: Genitourinary: Denies hematuria Musculoskeletal: Musculoskeletal: Reports no additional musculoskeletal complaints Integumentary/Breasts: Skin/Breast: Reports wounds (Surgical wound involving the AV graft) Neurologic: Reports Abnormal speech present and Reports weakness Psychiatric: Psychiatric: Reports no additional psychiatric complaints Endocrine: Endocrine: Denies palpitations Exam Narrative: Exam Narrative: Morbidly obese female, weak voice, left upper extremity weakness, no respiratory distress Const: General: comfortable and no acute distress HENMT: Mouth: Yes moist mucous membranes Eyes: EOM: EOMs intact bilaterally Neck: Neck: supple Thyroid: abnormal thyroid Lymphatic: lymphad
--- NOTE | 2020-07-21 13:46 | PCSTNOTE ---
speech therapy was attempted but patient could not be aroused enough to complete. Attempted twice. Will continue with POC.
--- NOTE | 2020-07-21 14:01 | P.PNIM_ITS ---
Progress Note: A&P Assessment and Plan (1) Acute cerebrovascular accident (CVA): Code(s): I63.9 - Cerebral infarction, unspecified Status: Acute Assessment and Plan: * Right frontoparietal stroke due to thrombosis of right M2 branch * Given history of paroxysmal atrial fibrillation this certainly could be cardioembolic * Will stop antiplatelet therapy and resume Eliquis at 2.5mg BID * PT/OT * [facility] referral vs SNF * Rpt ct head * order echo and carotid US * consult nephrology (2) Paroxysmal atrial fibrillation: Code(s): I48.0 - Paroxysmal atrial fibrillation Status: Acute Assessment and Plan: * Continue your amiodarone and metoprolol * Eliquis 2.5mg BID until dialysis then increase (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: Code(s): E05.80 - Other thyrotoxicosis without thyrotoxic crisis or storm; T46.2X5A - Adverse effect of other antidysrhythmic drugs, initial encounter Status: Acute Assessment and Plan: * 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 * Obtain thyroid antibodies including thyroid-stimulating immunoglobulin, CRP * Start methimazole at 20mg/day and titrate dose upward to 40-60mg/day if needed * Continue metoprolol * Consult cardiology regarding question of whether to continue amiodarone (4) End-stage renal disease on hemodialysis: Code(s): N18.6 - End stage renal disease; Z99.2 - Dependence on renal dialysis Status: Acute Assessment and Plan: * Nephrology following (5) Hyperkalemia: Code(s): E87.5 - Hyperkalemia Status: Acute Assessment and Plan: * Resolved * Hold losartan (6) Essential hypertension: Onset Date: Unknown Code(s): I10 - Essential (primary) hypertension Status: Chronic Assessment and Plan: * Blood pressure is running a bit low for acute stroke. Will hold losartan. 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 of insulin Status: Chronic Assessment and Plan: * Basal and sliding scale insulin * [facility] Novolog 70/30 due to hospitalization with dietary restrictions (9) Transaminitis: Code(s): R74.01 - Elevation of levels of liver transaminase levels Status: Acute Assessment and Plan: * Suspect DICKSON * Hepatitis ABC panel negative * RUQ U/s pending (10) Elevated lactic acid level: Code(s): R79.89 - Other specified abnormal findings of blood chemistry Status: Acute Assessment and Plan: * Possibly due to hypoperfusion * Improving (11) Elevated troponin: Code(s): R77.8 - Other specified abnormalities of plasma proteins Status: Acute Assessment and Plan: * Due to end-stage renal disease Subjective Date/time seen: 07/21/20 14:01 Interval history: 70-year-old morbidly obese female with atrial fibrillation, chronic kidney disease now dialysis, hypertension, and sleep apnea who presented to the emergency department earlier today via EMS from home for evaluation of stroke-like symptoms. Unfortunate lady with a large dense stroke effecting her left side arm and leg and her speech. Pt h
--- NOTE | 2020-07-21 14:01 | PM.IMPN ---
Progress Note: A&P Assessment and Plan (1) Acute cerebrovascular accident (CVA): Code(s): I63.9 - Cerebral infarction, unspecified Status: Acute Assessment and Plan: Right frontoparietal stroke due to thrombosis of right M2 branch Given history of paroxysmal atrial fibrillation this certainly could be cardioembolic Will stop antiplatelet therapy and resume Eliquis at 2.5mg BID PT/OT [facility] referral vs SNF Rpt ct head order echo and carotid US consult nephrology (2) Paroxysmal atrial fibrillation: Code(s): I48.0 - Paroxysmal atrial fibrillation Status: Acute Assessment and Plan: Continue your amiodarone and metoprolol Eliquis 2.5mg BID until dialysis then increase (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: Code(s): E05.80 - Other thyrotoxicosis without thyrotoxic crisis or storm; T46.2X5A - Adverse effect of other antidysrhythmic drugs, initial encounter Status: Acute Assessment and Plan: 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 Obtain thyroid antibodies including thyroid-stimulating immunoglobulin, CRP Start methimazole at 20mg/day and titrate dose upward to 40-60mg/day if needed Continue metoprolol Consult cardiology regarding question of whether to continue amiodarone (4) End-stage renal disease on hemodialysis: Code(s): N18.6 - End stage renal disease; Z99.2 - Dependence on renal dialysis Status: Acute Assessment and Plan: Nephrology following (5) Hyperkalemia: Code(s): E87.5 - Hyperkalemia Status: Acute Assessment and Plan: Resolved Hold losartan (6) Essential hypertension: Onset Date: Unknown Code(s): I10 - Essential (primary) hypertension Status: Chronic Assessment and Plan: Blood pressure is running a bit low for acute stroke. Will hold losartan. (7) Diastolic congestive heart failure: Qualifiers: Heart failure chronicity: unspecified Qualified Code(s): I50.30 - Unspecified diastolic (congestive) heart failure Code(s): I50.30 - Unspecified diastolic (congestive) heart failure Status: Chronic Assessment and Plan: Clinically stable (8) Insulin dependent type 2 diabetes mellitus: Code(s): E11.9 - Type 2 diabetes mellitus without complications; Z79.4 - detention (current) use of insulin Status: Chronic Assessment and Plan: Basal and sliding scale insulin [facility] Novolog 70/30 due to hospitalization with dietary restrictions (9) Transaminitis: Code(s): R74.01 - Elevation of levels of liver transaminase levels Status: Acute Assessment and Plan: Suspect DICKSON Hepatitis ABC panel negative RUQ U/s pending (10) Elevated lactic acid level: Code(s): R79.89 - Other specified abnormal findings of blood chemistry Status: Acute Assessment and Plan: Possibly due to hypoperfusion Improving (11) Elevated troponin: Code(s): R77.8 - Other specified abnormalities of plasma proteins Status: Acute Assessment and Plan: Due to end-stage renal disease Subjective Date/time seen: 07/21/20 14:01 Interval history: 70-year-old morbidly obese female with atrial fibrillation, chronic kidney disease now dialysis, hypertension, and sleep apnea who presented to the emergency department earlier today via EMS from home for evaluation of stroke-like symptoms. Unfortunate lady with a large dense stroke effecting her left side arm and leg and her speech. Pt had ct head repeated today as nurse was more concerned with her swallowing today. Pt is currently npo. Bp slightly high, consult nephrology for dialysis consult neurology for new stroke. Review of Systems Review of Systems: All systems reviewed & are unremarkable except as noted in HPI and below Exam Narrative: Exam Narrative: GENERALLY: MORBIDLY OBESE HEENT: PERRLA NECK: No JVD, adenopathy, or thyromegaly CHEST:
--- NOTE | 2020-07-21 16:12 | PC.NURSE ---
Notified Dr Saavedra that patient is unable to swallow today and he recommended IV Heparin for anti coagulation. I spoke with Dr Villalpando and he agreed to start anticoagulation with IV Heparin. Per Dr. Saavedra IV heparin with a weight based Protocol will be ordered to start today.
[2020-07-21 16:56] LABS: Glucose Point of Care 137 (65-105)
[2020-07-21 18:09] LABS: Basophils Percent Auto 0.3 % (0.2-1.2); Eosinophils Percent Auto 0.3 % (0-4.4); Hematocrit 36.5 % (37.0-47.0); Hemoglobin 11.6 g/dL (12.0-15.0); Immature Granulocyte Percent A 0.9 % (0-0.5); Lymphocytes Absolute Auto 2.28 K/mm3 (0.9-3.2); Lymphocytes Percent Auto 19.7 % (18.3-44.2); Mean Corpuscular HGB Conc 31.8 g/dl (32-36); Mean Corpuscular Hemoglobin 26.7 pg (26-34); Mean Corpuscular Volume 84.1 fl (80-100); Mean Platelet Volume 9.7 fl (7.4-10.4); Monocytes Absolute Auto 1.3 K/mm3 (0.1-0.6); Monocytes Percent Auto 11.4 % (2.6-8.5); Neutrophils Absolute Auto 7.8 K/mm3 (1.3-6.7); Neutrophils Percent Auto 67.4 % (45.5-73.1); Nucleated Red Blood Cells Perc 0.3 % (0.0-0.2); Platelet Count Result 175 k/mm3 (150-375); Red Blood Count 4.34 M/mm3 (4.2-5.4); Red Cell Distribution Width 18.9 % (11.5-14.5); White Blood Count 11.6 K/mm3 (4.5-10.0)
[2020-07-21 18:22] LABS: INR 1.3; Partial Thromboplastin Time 28.7 SECONDS (22.3-36.8); Prothrombin Time 16.3 Seconds (11.1-14.7)
[2020-07-21] MEDS: HEPARIN SODIUM 5,000 UNITS/ML VIAL 4000 UNITS IV PUSH (19:20)
[2020-07-21] MEDS: HEPARIN SOD/D5W 100 UNITS/ML 25,000 UNITS/250 ML BAG 14 UNITS IV CONT (19:29)
[2020-07-21 20:21] LABS: Glucose Point of Care 140 (65-105)
[2020-07-22] VITALS (37 sets, daily range): BP systolic 73–165; BP diastolic 32–78; PULSE 65–153; RESP 12–21; TEMP 35.9–36.9; O2SAT 88–100; BMI 10.0
[2020-07-22 02:37] LABS: Partial Thromboplastin Time > 200.0 SECONDS (22.3-36.8)
--- NOTE | 2020-07-22 07:26 | P.PNNP_ITS ---
Progress Note: A&P Assessment and Plan (1) End stage renal disease: Code(s): N18.6 - End stage renal disease Status: Chronic Assessment and Plan: * HD to be done today. * volume status looks okay. * Blood pressure is doing pretty well. * Will remove just a little bit of fluid. * Potassium was 5.0 yesterday. Will use a 2 K bath today. * Acid-base balance is good. (2) Acute cerebrovascular accident (CVA): Code(s): I63.9 - Cerebral infarction, unspecified Status: Acute Assessment and Plan: CT shows right temporoparietal infarct * acutely thrombosed right M2 branch of the superior margin of the sylvian fissure * Neurology following * PT/OT ordered * Speech therapy evaluation (3) Hyperkalemia: Code(s): E87.5 - Hyperkalemia Status: Acute Assessment and Plan: * potassium okay today. * Will check in a.m.. (4) Essential hypertension: Onset Date: Unknown Code(s): I10 - Essential (primary) hypertension Status: Chronic Assessment and Plan: * Systolic running 107-140. * Would like to allow blood pressure to run a little bit high * Heart rate in the 80s. 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 insulin use: with termite control technician use Diabetes mellitus complication status: with kidney complications Diabetes mellitus complication detail: with chronic kidney disease Chronic kidney disease stage: stage 3 (moderate) Chronic kidney disease stage 3 subtype: unspecified whether 3a or 3b Qualified Code(s): E11.22 - Type 2 diabetes mellitus with diabetic chronic kidney disease; N18.30 - Chronic kidney disease, stage 3 unspecified; Z79.4 - termite technician (current) use of insulin Code(s): E11.9 - Type 2 diabetes mellitus without complications Status: Chronic Assessment and Plan: * follow accuchecks * glycemic control Will continue to follow. Subjective Date/time seen: 07/22/20 07:26 Interval history: Shaniqua is more awake today. She is fluent today. No chest pain or shortness of breath. We discussed events. Due for dialysis today Review of Systems Cardiovascular: Cardiovascular: Reports no additional cardiovascular complaints Respiratory: Respiratory: Reports no additional respiratory complaints Gastrointestinal: Gastrointestinal: Reports no additional gastrointestinal complaints Genitourinary: Genitourinary: Reports no additional female genitourinary complaints Exam Narrative: Exam Narrative: General: WD/WN AA female in NAD Heart: normal S1 and S2; no rub Or gallop Lungs: clear Abdomen: soft, nontender, nondistended, positive bowel sounds Extremities: no cyanosis or clubbing; no edema Skin: no rash or subcu nodules Objective Data Vital Signs Vital Signs: Vital Signs - 24 hr 07/21/20 08:00 07/21/20 08:33 07/21/20 10:00 Temperature 36.8 C Pulse Rate 79 81 81 Respiratory Rate 20 Blood Pressure 137/103 H
--- NOTE | 2020-07-22 07:26 | PM.PNNEP ---
Progress Note: A&P Assessment and Plan (1) End stage renal disease: Code(s): N18.6 - End stage renal disease Status: Chronic Assessment and Plan: HD to be done today. volume status looks okay. Blood pressure is doing pretty well. Will remove just a little bit of fluid. Potassium was 5.0 yesterday. Will use a 2 K bath today. Acid-base balance is good. (2) Acute cerebrovascular accident (CVA): Code(s): I63.9 - Cerebral infarction, unspecified Status: Acute Assessment and Plan: CT shows right temporoparietal infarct acutely thrombosed right M2 branch of the superior margin of the sylvian fissure Neurology following PT/OT ordered Speech therapy evaluation (3) Hyperkalemia: Code(s): E87.5 - Hyperkalemia Status: Acute Assessment and Plan: potassium okay today. Will check in a.m.. (4) Essential hypertension: Onset Date: Unknown Code(s): I10 - Essential (primary) hypertension Status: Chronic Assessment and Plan: Systolic running 107-140. Would like to allow blood pressure to run a little bit high Heart rate in the 80s. (5) Afib: Qualifiers: Atrial fibrillation type: unspecified Qualified Code(s): I48.91 - Unspecified atrial fibrillation Code(s): I48.91 - Unspecified atrial fibrillation Status: Chronic Assessment and Plan: continue rate control strategy resuming anticoagulation (6) Diabetes mellitus: Onset Date: Unknown Qualifiers: Diabetes mellitus type: type 2 Diabetes mellitus custodial insulin use: with custodial use Diabetes mellitus complication status: with kidney complications Diabetes mellitus complication detail: with chronic kidney disease Chronic kidney disease stage: stage 3 (moderate) Chronic kidney disease stage 3 subtype: unspecified whether 3a or 3b Qualified Code(s): E11.22 - Type 2 diabetes mellitus with diabetic chronic kidney disease; N18.30 - Chronic kidney disease, stage 3 unspecified; Z79.4 - extermination inspector (current) use of insulin Code(s): E11.9 - Type 2 diabetes mellitus without complications Status: Chronic Assessment and Plan: follow accuchecks glycemic control Will continue to follow. Subjective Date/time seen: 07/22/20 07:26 Interval history: Shaniqua is more awake today. She is fluent today. No chest pain or shortness of breath. We discussed events. Due for dialysis today Review of Systems Cardiovascular: Cardiovascular: Reports no additional cardiovascular complaints Respiratory: Respiratory: Reports no additional respiratory complaints Gastrointestinal: Gastrointestinal: Reports no additional gastrointestinal complaints Genitourinary: Genitourinary: Reports no additional female genitourinary complaints Exam Narrative: Exam Narrative: General: WD/WN AA female in NAD Heart: normal S1 and S2; no rub Or gallop Lungs: clear Abdomen: soft, nontender, nondistended, positive bowel sounds Extremities: no cyanosis or clubbing; no edema Skin: no rash or subcu nodules Objective Data Vital Signs Vital Signs: Vital Signs - 24 hr 07/21/20 08:00 07/21/20 08:33 07/21/20 10:00 Temperature 36.8 C Pulse Rate 79 81 81 Respiratory Rate 20 Blood Pressure 137/103 H Pulse Oximetry 96 91 07/21/20 12:00 07/21/20 12:20 07/21/20 14:00 Temperature 36.4 C Pulse Rate 81 79 82 Respiratory Rate 22 H Blood Pressure 118/38 L Pulse Oximetry 96 96 07/21/20 16:00 07/21/20 16:40 07/21/20 18:00 Temperature 35.7 C L Pulse Rate 82 84 73 Respiratory Rate 22 H Blood Pressure 130/52 L Pulse Oximetry 96 100 07/21/20 20:00 07/21/20 23:39 07/21/20 23:58 Temperature 36.1 C L 36.6 C Pulse Rate 68 67 63 Respiratory Rate 18 16 18 Blood Pressure 107/43 L 138/50 L Pulse Oximetry 88 L 99 94 07/22/20 00:00 07/22/20 02:00 07/22/20 02:50 [place]
[2020-07-22 08:13] LABS: Glucose Point of Care 128 (65-105)
[2020-07-22 08:23] LABS: Basophils Percent Auto 0.4 % (0.2-1.2); Eosinophils Absolute Auto 0.1 K/mm3 (0-0.3); Hematocrit 34.9 % (37.0-47.0); Hemoglobin 11.5 g/dL (12.0-15.0); Immature Granulocyte Absolute 0.08 K/mm3 (0.00-0.031); Immature Granulocyte Percent A 0.7 % (0-0.5); Mean Corpuscular Volume 81.9 fl (80-100); Monocytes Percent Auto 8.8 % (2.6-8.5); Neutrophils Absolute Auto 7.6 K/mm3 (1.3-6.7); Neutrophils Percent Auto 69.1 % (45.5-73.1); Nucleated Red Blood Cells Perc 0.2 % (0.0-0.2); Platelet Count Result 177 k/mm3 (150-375); Red Blood Count 4.26 M/mm3 (4.2-5.4); Red Cell Distribution Width 18.7 % (11.5-14.5)
[2020-07-22 08:49] LABS: Albumin Level 3.3 g/dL (3.5-5.1); Anion Gap 10 mmol/L (8-16); Blood Urea Nitrogen 52 mg/dL (7-17); Calcium 10.5 mg/dL (8.4-10.2); Carbon Dioxide 28 mmol/L (22-30); Chloride 103 mmol/L (98-107); Estimated CRCL calculation 7 ml/min; Estimated Glomerular Filt Rate 6; Glucose 142 mg/dL (65-105); Potassium 4.6 mmol/L (3.4-5.0); Sodium 141 mmol/L (137-145)
[2020-07-22 08:50] LABS: Partial Thromboplastin Time > 200.0 SECONDS (22.3-36.8)
[2020-07-22] MEDS: METOPROLOL TARTRATE INJ 5 MG/5 ML VIAL 2.5 MG IV PUSH (11:31)
--- NOTE | 2020-07-22 13:59 | PCOTNOTE ---
Attempted therapy session with patient, but patient had just been taken to dialysis. Therapy treatment unable to be completed.
--- NOTE | 2020-07-22 14:34 | PM.PNCARD ---
Progress Note: A&P Assessment and Plan (1) Acute cerebrovascular accident (CVA): Code(s): I63.9 - Cerebral infarction, unspecified Status: Acute Assessment and Plan: Very unfortunate complication. Right-sided stroke, probably cardioembolic a she had been off her Eliquis for a week for her graft surgery. This was a moderate-sized stroke and may be subject to hemorrhagic conversion. -Continue Eliquis but increase to a higher dose, 5 mg b.i.d., if okay with Neurology and Nephrology. On heparin infusion as she was not taking p.o.. Swallow evaluation pending. If passes resume oral anticoagulation with discontinuation of heparin drip. (2) Paroxysmal atrial fibrillation: Code(s): I48.0 - Paroxysmal atrial fibrillation Status: Acute Assessment and Plan: Mostly SR. Patient continues to have paroxysmal atrial fibrillation with heart rates running in the 120s at times but asymptomatic. Cont Amiodarone and Metoprolol. If AFib with RVR IV bolus and drip as necessary. 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 Thyroid issues not related amiodarone as this predated initiation. Nonetheless, will need to monitor very closely as amiodarone may complicate management. Continue Amiodarone 200 mg b.i.d. as her AFib rate is hard to control with other medications. (4) Hyperthyroidism: Code(s): E05.90 - Thyrotoxicosis, unspecified without thyrotoxic crisis or storm Status: Acute Assessment and Plan: Defer to primary service. Patient had a very low TSH in March 2020 prior to initiating amiodarone. 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 (5) Diastolic congestive heart failure: Qualifiers: Heart failure chronicity: unspecified Qualified Code(s): I50.30 - Unspecified diastolic (congestive) heart failure Code(s): I50.30 - Unspecified diastolic (congestive) heart failure Status: Chronic Assessment and Plan: Chronic diastolic CHF, stable. Volume management with hemodialysis for end-stage renal disease. CPAP. Subjective Date/time seen: Date of service: 07/22/20 09:05 Follow-up for atrial fibrillation, stroke Patient was maintaining sinus rhythm overnight and this morning. Occasional PAF on telemetry of this hospitalization. More awake and alert this morning. Denies chest pain or shortness of breath. Feeling better overall she states. Hemodialysis plan for later today. Remains on heparin drip. Review of Systems Constitutional: Constitutional: Reports weakness Eyes: Eyes: Reports no additional eye complaints ENT: Denies nasal congestion Cardiovascular: Cardiovascular: Denies chest pain, Denies pedal edema, Denies lightheadedness, Denies palpitations, Denies dyspnea and Denies dyspnea on exertion Respiratory: Respiratory: Denies cough, Denies dyspnea and Denies dyspnea on exertion Gastrointestinal: Gastrointestinal: Denies abdominal pain Genitourinary: Genitourinary: Denies hematuria Musculoskeletal: Musculoskeletal: Reports no additional musculoskeletal complaints Integumentary/Breasts: Skin/Breast: Reports wounds (Surgical wound involving the AV graft) Neurologic: Reports Abnormal speech present and Reports weakness Psychiatric: Psychiatric: Reports no additional psychiatric complaints Endocrine: Endocrine: Denies palpitations Exam Narrative: Exam Narrative: Morbidly ob
[2020-07-22 15:08] LABS: Glucose Point of Care 106 mg/dl (65-105)
[2020-07-22] MEDS: METOPROLOL TARTRATE 12.5 MG TABLET PO ×2 (15:08→20:31)
[2020-07-22] MEDS: HEPARIN SOD/D5W 100 UNITS/ML 25,000 UNITS/250 ML BAG 10 UNITS IV CONT (15:34)
[2020-07-22] MEDS: AMIODARONE 150 MG/D5W 100 ML 150 MG/100 ML BAG 600 MG IV CONT (15:55)
[2020-07-22 16:52] LABS: Basophils Percent Auto 0.3 % (0.2-1.2); Eosinophils Percent Auto 0.1 % (0-4.4); Hematocrit 38.1 % (37.0-47.0); Hemoglobin 12.4 g/dL (12.0-15.0); Immature Granulocyte Absolute 0.16 K/mm3 (0.00-0.031); Immature Granulocyte Percent A 1.2 % (0-0.5); Lymphocytes Absolute Auto 1.19 K/mm3 (0.9-3.2); Lymphocytes Percent Auto 8.7 % (18.3-44.2); Mean Corpuscular HGB Conc 32.5 g/dl (32-36); Mean Corpuscular Hemoglobin 27.1 pg (26-34); Mean Corpuscular Volume 83.2 fl (80-100); Mean Platelet Volume 10.2 fl (7.4-10.4); Monocytes Absolute Auto 1.1 K/mm3 (0.1-0.6); Monocytes Percent Auto 7.9 % (2.6-8.5); Neutrophils Absolute Auto 11.2 K/mm3 (1.3-6.7); Neutrophils Percent Auto 81.8 % (45.5-73.1); Nucleated Red Blood Cells Absolute Auto 0.1 K/mm3 (0.0-0.012); Nucleated Red Blood Cells Perc 0.9 % (0.0-0.2); Platelet Count Result 191 k/mm3 (150-375); Red Blood Count 4.58 M/mm3 (4.2-5.4); Red Cell Distribution Width 19.4 % (11.5-14.5); White Blood Count 13.7 K/mm3 (4.5-10.0)
--- NOTE | 2020-07-22 17:18 | P.PNIM_ITS ---
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: Code(s): E05.80 - Other thyrotoxicosis without thyrotoxic crisis or storm; T46.2X5A - Adverse effect of other antidysrhythmic drugs, initial encounter Status: Acute Assessment and Plan: * 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 Will hold losartan. (7) Diastolic congestive heart failure: Qualifiers: Heart failure chronicity: unspecified Qualified Code(s): I50.30 - Unspecified diastolic (congestive) heart failure Code(s): I50.30 - Unspecified diastolic (congestive) heart failure Status: Chronic Assessment and Plan: * Clinically stable (8) Insulin dependent type 2 diabetes mellitus: Code(s): E11.9 - Type 2 diabetes mellitus without complications; Z79.4 - shelter (current) use of insulin Status: Chronic Assessment and Plan: * Basal and sliding scale insulin * [facility] Novolog 70/30 due to hospitalization with dietary restrictions (9) Transaminitis: Code(s): R74.01 - Elevation of levels of liver transaminase levels Status: Acute Assessment and Plan: * Suspect DICKSON * Hepatitis ABC panel negative * RUQ U/s pending (10) Elevated lactic acid level: Code(s): R79.89 - Other specified abnormal findings of blood chemistry Status: Acute Assessment and Plan: * * Improving (11) Elevated troponin: Code(s): R77.8 - Other specified abnormalities of plasma proteins Status: Acute Assessment and Plan: * Due to end-stage renal disease Or AF Subjective Date/time seen: 07/22/20 17:18 Interval history: 70-year-old morbidly obese female with atrial fibrillation, chronic kidney disease now dialysis, hypertension, and sleep apnea who presented to the emergency department earlier today via EMS from home for evaluation of stroke-like symptoms. Unfortunate lady with a large dense stroke effecting her left side arm and leg and her speech. Pt had dialysis today. Pt having high HR irregular, irregular Review of Systems Review of Systems: All systems reviewed & are unremarkable except as noted in HPI and below Exam Narrative: Exam Narrative: GENERALLY: MORBIDLY OBESE HEENT: PERRLA NECK: No JVD, adenopathy, or thyromegaly CHEST: Clear to auscu
--- NOTE | 2020-07-22 17:18 | PM.IMPN ---
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: Code(s): E05.80 - Other thyrotoxicosis without thyrotoxic crisis or storm; T46.2X5A - Adverse effect of other antidysrhythmic drugs, initial encounter Status: Acute Assessment and Plan: 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 Will hold losartan. (7) Diastolic congestive heart failure: Qualifiers: Heart failure chronicity: unspecified Qualified Code(s): I50.30 - Unspecified diastolic (congestive) heart failure Code(s): I50.30 - Unspecified diastolic (congestive) heart failure Status: Chronic Assessment and Plan: Clinically stable (8) Insulin dependent type 2 diabetes mellitus: Code(s): E11.9 - Type 2 diabetes mellitus without complications; Z79.4 - intermediate manager (current) use of insulin Status: Chronic Assessment and Plan: Basal and sliding scale insulin [place] home Novolog 70/30 due to hospitalization with dietary restrictions (9) Transaminitis: Code(s): R74.01 - Elevation of levels of liver transaminase levels Status: Acute Assessment and Plan: Suspect DICKSON Hepatitis ABC panel negative RUQ U/s pending (10) Elevated lactic acid level: Code(s): R79.89 - Other specified abnormal findings of blood chemistry Status: Acute Assessment and Plan: Improving (11) Elevated troponin: Code(s): R77.8 - Other specified abnormalities of plasma proteins Status: Acute Assessment and Plan: Due to end-stage renal disease Or AF Subjective Date/time seen: 07/22/20 17:18 Interval history: 70-year-old morbidly obese female with atrial fibrillation, chronic kidney disease now dialysis, hypertension, and sleep apnea who presented to the emergency department earlier today via EMS from home for evaluation of stroke-like symptoms. Unfortunate lady with a large dense stroke effecting her left side arm and leg and her speech. Pt had dialysis today. Pt having high HR irregular, irregular Review of Systems Review of Systems: All systems reviewed & are unremarkable except as noted in HPI and below Exam Narrative: Exam Narrative: GENERALLY: MORBIDLY OBESE HEENT: PERRLA NECK: No JVD, adenopathy, or thyromegaly CHEST: Clear to auscultation. Normal effort. HEART: IRREGULAR IRREGULAR ABDOMEN: BS+, soft, nontender, no mass, no bruits EXTREMITIES: No cyanosis, edema, or clubbing NEUROLOGIC: CN WITH MODERATE LEFT FACIAL DROOP APHASIC MUSCULOSKELETAL: L Arm 3/5 and L Leg 3/5 R leg 3/5 PSYCH: Alert. Aphasic Objective Data Vital Signs Vital Signs: Vital Signs - 24 hr 07/21/20 18:00 07/21/20 20:00 07/21/20 23:39 Temperature 36.1 C L 36.6 C Pulse Rate 73 68 67 Respiratory Rate 18
[2020-07-22 17:35] LABS: Partial Thromboplastin Time 179.9 SECONDS (22.3-36.8)
[2020-07-22 17:46] LABS: Glucose Point of Care 120 mg/dl (65-105)
[2020-07-22] MEDS: BRIMONIDINE TARTRATE 0.2% OP SOLN 5 ML BTL 1 DROP EACH EYE ×2 (17:52→20:31)
[2020-07-22] MEDS: TIMOLOL MALEATE 0.5% OP SOLN 5 ML BOTTLE 1 DROP EACH EYE ×2 (17:52→20:31)
[2020-07-22] MEDS: AMIODARONE 360 MG/D5W 200 ML 360 MG/200 ML BAG 33.33 MG IV CONT (17:53)
[2020-07-22 19:28] LABS: Glucose Point of Care 118 mg/dl (65-105)
[2020-07-22 20:07] LABS: SARS-CoV-2 RNA PCR Negative
[2020-07-22] MEDS: INSULIN GLARGINE (*BKC) 100 UNITS/ML 30 UNITS SUB-Q (20:31)
[2020-07-23] VITALS (16 sets, daily range): BP systolic 101–147; BP diastolic 40–56; PULSE 53–108; RESP 18–20; TEMP 36.1–36.6; O2SAT 96–100; BMI 36.6
[2020-07-23] MEDS: AMINO ACIDS 4.25%/D5W/LYTES/CA 2,000 ML 80 ML IV CONT (01:00)
--- NOTE | 2020-07-23 01:45 | ECG_ITS ---
Measurements Intervals [place] Rate: 66 P: 50 AL: 147 QRS: 6 QRSD: 98 T: 179 QT: 457 QTc: 479 Interpretive Statements SINUS RHYTHM INCOMPLETE RIGHT BUNDLE BRANCH BLOCK ST-T WAVE ABNORMALITY IN HIGH LATERAL LEADS- CONSIDER ISCHEMIA BASELINE WANDER- II, III, AVF ABNORMAL ECG Electronically Signed On 07-23-2020 6:49:19 CDT by Garrett Bucio D.O.
[2020-07-23 02:02] LABS: Partial Thromboplastin Time 54.5 SECONDS (22.3-36.8)
[2020-07-23] MEDS: HEPARIN SODIUM 5,000 UNITS/ML VIAL 4000 UNITS IV PUSH (02:08)
[2020-07-23] MEDS: AMIODARONE 360 MG/D5W 200 ML 360 MG/200 ML BAG 16.67 MG IV CONT ×2 (03:35→14:16)
[2020-07-23 05:49] LABS: Glucose Point of Care 135 mg/dl (65-105)
[2020-07-23 05:50] LABS: Glucose Point of Care 189 mg/dl (65-105)
--- NOTE | 2020-07-23 07:30 | PCOTNOTE ---
Per RN, Patient has a decline and she id waiting to hear back from doctors. Patient had dialysis last night, when she returned she was non-verbal and being looked at. Patient was unable to be seen at this time this morning.
[2020-07-23 08:47] LABS: Anion Gap 13 mmol/L (8-16); Blood Urea Nitrogen 30 mg/dL (7-17); Calcium 9.1 mg/dL (8.4-10.2); Carbon Dioxide 28 mmol/L (22-30); Chloride 91 mmol/L (98-107); Estimated CRCL calculation 12 ml/min; Estimated Glomerular Filt Rate 10; Glucose 358 mg/dL (65-105); Phosphorus 5.4 mg/dL (2.5-4.5); Sodium 132 mmol/L (137-145)
[2020-07-23 08:55] LABS: Partial Thromboplastin Time > 200.0 SECONDS (22.3-36.8)
[2020-07-23] MEDS: HEPARIN SOD/D5W 100 UNITS/ML 25,000 UNITS/250 ML BAG 11 UNITS IV CONT (09:14)
[2020-07-23] MEDS: BRIMONIDINE TARTRATE 0.2% OP SOLN 5 ML BTL 1 DROP EACH EYE ×2 (09:18→20:22)
[2020-07-23] MEDS: TIMOLOL MALEATE 0.5% OP SOLN 5 ML BOTTLE 1 DROP EACH EYE ×2 (09:20→20:22)
[2020-07-23] MEDS: LIDOCAINE HCL 1% PF INJ 5 ML VIAL INFILTRATE (10:25)
--- NOTE | 2020-07-23 11:00 | P.PNNP_ITS ---
Progress Note: A&P Assessment and Plan (1) End stage renal disease: Code(s): N18.6 - End stage renal disease Status: Chronic Assessment and Plan: * HD do tomorrow. * volume status looks okay. * Blood pressure is doing pretty well. systolic in the 130s. * Acid-base balance is good. (2) Acute cerebrovascular accident (CVA): Code(s): I63.9 - Cerebral infarction, unspecified Status: Acute Assessment and Plan: CT shows right temporoparietal infarct * acutely thrombosed right M2 branch of the superior margin of the sylvian fissure * Neurology following * PT/OT ordered * Speech therapy evaluation underway as well because she is having problem swallowing. (3) Hyperkalemia: Code(s): E87.5 - Hyperkalemia Status: Acute Assessment and Plan: * potassium okay today. * Will check in a.m.. (4) Essential hypertension: Onset Date: Unknown Code(s): I10 - Essential (primary) hypertension Status: Chronic Assessment and Plan: * Systolic running 107-140. * Would like to allow blood pressure to run a little bit high * Heart rate in the 80s. (5) Afib: Qualifiers: Atrial fibrillation type: unspecified Qualified Code(s): I48.91 - Unspecified atrial fibrillation Code(s): I48.91 - Unspecified atrial fibrillation Status: Chronic Assessment and Plan: * continue rate control strategy * On heparin drip while oral anticoagulation is reinstated. (6) Diabetes mellitus: Onset Date: Unknown Qualifiers: Diabetes mellitus type: type 2 Diabetes mellitus termite helper insulin use: with termite helper use Diabetes mellitus complication status: with kidney complications Diabetes mellitus complication detail: with chronic kidney di sease Chronic kidney disease stage: stage 3 (moderate) Chronic kidney disease stage 3 subtype: unspecified whether 3a or 3b Qualified Code(s): E11.22 - Type 2 diabetes mellitus with diabetic chronic kidney disease; N18.30 - Chronic kidney disease, stage 3 unspecified; Z79.4 - half-way (current) use of insulin Code(s): E11.9 - Type 2 diabetes mellitus without complications Status: Chronic Assessment and Plan: * follow accuchecks * glycemic control Will continue to follow. Subjective Date/time seen: 07/23/20 11:00 Interval history: Shaniqua is more awake today. Patient is eager to go home. We discussed that she will probably need rehab 1st. Due for dialysis tomorrow Exam Narrative: Exam Narrative: General: WD/WN AA female in NAD Heart: normal S1 and S2; no rub Or gallop Lungs: clear Bilaterally Abdomen: soft, nontender, nondistended, positive bowel sounds Extremities: no cyanosis or clubbing; no edema Skin: no rash Neuro: dense left hemiparesis. Objective Data Vital Signs Vital Signs: Vital Signs - 24 hr 07/22/20 11:15 07/22/20 11:30 07/22/20 11:31 Temperature Pulse Rate 132 H 142 H 140 H Respiratory Rate Blood Pressure 138/78 165/51 H Pulse Oximetry 07/22/20 11:45 07/22/20 12:00 07/22/20 12:15 Temperature Pulse Rate 136 H 129 H 109 H Respiratory Rate Blood Pressure 128/70 108/59 L 105/63 Pulse Oximetry 07/22/20 12:30 07/22/20 12:45 07/22/20 13:00 Temp
--- NOTE | 2020-07-23 11:00 | PM.PNNEP ---
Progress Note: A&P Assessment and Plan (1) End stage renal disease: Code(s): N18.6 - End stage renal disease Status: Chronic Assessment and Plan: HD do tomorrow. volume status looks okay. Blood pressure is doing pretty well. systolic in the 130s. Acid-base balance is good. (2) Acute cerebrovascular accident (CVA): Code(s): I63.9 - Cerebral infarction, unspecified Status: Acute Assessment and Plan: CT shows right temporoparietal infarct acutely thrombosed right M2 branch of the superior margin of the sylvian fissure Neurology following PT/OT ordered Speech therapy evaluation underway as well because she is having problem swallowing. (3) Hyperkalemia: Code(s): E87.5 - Hyperkalemia Status: Acute Assessment and Plan: potassium okay today. Will check in a.m.. (4) Essential hypertension: Onset Date: Unknown Code(s): I10 - Essential (primary) hypertension Status: Chronic Assessment and Plan: Systolic running 107-140. Would like to allow blood pressure to run a little bit high Heart rate in the 80s. (5) Afib: Qualifiers: Atrial fibrillation type: unspecified Qualified Code(s): I48.91 - Unspecified atrial fibrillation Code(s): I48.91 - Unspecified atrial fibrillation Status: Chronic Assessment and Plan: continue rate control strategy On heparin drip while oral anticoagulation is reinstated. (6) Diabetes mellitus: Onset Date: Unknown Qualifiers: Diabetes mellitus type: type 2 Diabetes mellitus group home insulin use: with group home use Diabetes mellitus complication status: with kidney complications Diabetes mellitus complication detail: with chronic kidney disease Chronic kidney disease stage: stage 3 (moderate) Chronic kidney disease stage 3 subtype: unspecified whether 3a or 3b Qualified Code(s): E11.22 - Type 2 diabetes mellitus with diabetic chronic kidney disease; N18.30 - Chronic kidney disease, stage 3 unspecified; Z79.4 - watermaster (current) use of insulin Code(s): E11.9 - Type 2 diabetes mellitus without complications Status: Chronic Assessment and Plan: follow accuchecks glycemic control Will continue to follow. Subjective Date/time seen: 07/23/20 11:00 Interval history: Shaniqua is more awake today. Patient is eager to go home. We discussed that she will probably need rehab 1st. Due for dialysis tomorrow Exam Narrative: Exam Narrative: General: WD/WN AA female in NAD Heart: normal S1 and S2; no rub Or gallop Lungs: clear Bilaterally Abdomen: soft, nontender, nondistended, positive bowel sounds Extremities: no cyanosis or clubbing; no edema Skin: no rash Neuro: dense left hemiparesis. Objective Data Vital Signs Vital Signs: Vital Signs - 24 hr 07/22/20 11:15 07/22/20 11:30 07/22/20 11:31 Temperature Pulse Rate 132 H 142 H 140 H Respiratory Rate Blood Pressure 138/78 165/51 H Pulse Oximetry 07/22/20 11:45 07/22/20 12:00 07/22/20 12:15 Temperature Pulse Rate 136 H 129 H 109 H Respiratory Rate Blood Pressure 128/70 108/59 L 105/63 Pulse Oximetry 07/22/20 12:30 07/22/20 12:45 07/22/20 13:00 Temperature Pulse Rate 123 H 104 H 135 H Respiratory Rate Blood Pressure 107/45 L 93/60 L 120/63 Pulse Oximetry 07/22/20 13:15 07/22/20 13:18 07/22/20 13:38 Temperature 36.9 C Pulse Rate 106 H 126 H 111 H Respiratory Rate 20 Blood Pressure 91/51 L 125/55 L 118/67 Pulse Oximetry 07/22/20 13:45 07/22/20 14:00 07/22/20 14:15 Temperature Pulse Rate 87 153 H 120 H Respiratory Rate Blood Pressure 73/32 L 126/50 L 98/54 L Pulse Oximetry 07/22/20 15:00 07/22/20 15:08 07/22/20 15:55 Temperature Pulse Rate 150 H 150 H Respiratory Rate Blood Pressure 101/43 L Pulse Oximetry 100 07/22/20 16:00 05
--- NOTE | 2020-07-23 13:09 | PM.PNCARD ---
Progress Note: A&P Assessment and Plan (1) Acute cerebrovascular accident (CVA): Code(s): I63.9 - Cerebral infarction, unspecified Status: Acute Assessment and Plan: Very unfortunate complication. Right-sided stroke, probably cardioembolic a she had been off her Eliquis for a week for her graft surgery. This was a moderate-sized stroke. -Continue Eliquis but increase to a higher dose, 5 mg b.i.d., if okay with Neurology and Nephrology. On heparin infusion as she failed her swallow evaluation and is not taking p.o. continue statin therapy goal LDL less than 70. Prognosis is guarded. (2) Paroxysmal atrial fibrillation: Code(s): I48.0 - Paroxysmal atrial fibrillation Status: Acute Assessment and Plan: Patient reverted to atrial fibrillation with RVR up to the 170s requiring IV amiodarone infusion with eventual conversion back to sinus rhythm. Will continue for now as patient is not able to take oral medications due to NPO status having failed her swallow evaluation. Continue IV heparin anticoagulation. Resume oral medical therapy when able. If AFib with RVR IV bolus and drip as necessary. (3) Altered mental status: Code(s): R41.82 - Altered mental status, unspecified Status: Acute Assessment and Plan: Waxing and waning. (4) Diastolic congestive heart failure: Qualifiers: Heart failure chronicity: unspecified Qualified Code(s): I50.30 - Unspecified diastolic (congestive) heart failure Code(s): I50.30 - Unspecified diastolic (congestive) heart failure Status: Chronic Assessment and Plan: Chronic diastolic CHF, stable. Volume management with hemodialysis for end-stage renal disease. CPAP. (5) End-stage renal disease on hemodialysis: Code(s): N18.6 - End stage renal disease; Z99.2 - Dependence on renal dialysis Status: Acute (6) emt intermediate current use of amiodarone: Code(s): Z79.899 - Other correction (current) drug therapy Status: Acute Assessment and Plan: Thyroid issues not related amiodarone as this predated initiation. Nonetheless, will need to monitor very closely as amiodarone may complicate management. (7) Hyperthyroidism: Code(s): E05.90 - Thyrotoxicosis, unspecified without thyrotoxic crisis or storm Status: Acute Assessment and Plan: Defer to primary service. Patient had a very low TSH in March 2020 prior to initiating amiodarone. 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 Methimazole. Subjective Date/time seen: Date of service: 07/23/20 13:09 Follow-up for atrial fibrillation, paroxysmal, CVA Patient hypotensive with hemodialysis yesterday. Given IV fluid bolus with improvement. Patient reverted back to atrial fibrillation with rapid ventricular response for which IV amiodarone infusion was initiated. Patient converted to sinus rhythm and is maintaining thus far. She failed swallow evaluation and has not been receiving oral medications as result. Hence, she remains on IV amiodarone and heparin infusion. Midline catheter placement today due to multiple infusions, poor IV access. Patient denies chest pain, complains of soreness on her buttocks. Feels weak, denies shortness of breath. Patient more lethargic today compared to yesterday. Review of Systems Constitutional: Constitutional: Reports weakness Eyes: Eyes: Reports no additional eye complaints ENT: Denies nasal congestion Cardiovascular: Cardiovascular: Denies chest pain, Denies pedal edema, Denies lightheadedness, Denies palpitations, Denies dyspnea
[2020-07-23 13:27] LABS: Glucose Point of Care 211 mg/dl (65-105)
[2020-07-23 13:43] LABS: Alanine Aminotransferase 172 U/L (4-35); Albumin Level 3.3 g/dL (3.5-5.1); Alkaline Phosphatase 99 U/L (38-126); Anion Gap 17 mmol/L (8-16); Aspartate Amino Transferase 214 U/L (14-36); Bilirubin,Total 0.9 mg/dL (0.2-1.3); Blood Urea Nitrogen 22 mg/dL (7-17); Calcium 9.9 mg/dL (8.4-10.2); Carbon Dioxide 20 mmol/L (22-30); Chloride 100 mmol/L (98-107); Estimated CRCL calculation 14 ml/min; Estimated Glomerular Filt Rate 13; Glucose 137 mg/dL (65-105); Magnesium 1.9 mg/dL (1.6-2.3); Sodium 137 mmol/L (137-145)
[2020-07-23 14:06] LABS: Transferrin 103 mg/dL (206-381)
[2020-07-23] MEDS: INSULIN ASPART (*BKC) 100 UNITS/ML SUB-Q (14:17)
--- NOTE | 2020-07-23 14:40 | PCOTNOTE ---
Per RN and physician,patient appropriate to continue skilled therapy services. No change in medical status. Continue per plan of care
--- NOTE | 2020-07-23 14:44 | PCDIET ---
TPN consult received. Discussed with Dr. Gaines via phone. MD plan to start NG tube feeding tomorrow. Recommend Nepro beginning at 20mL/hr and advancing by 10mL/hr every 6-8 hours, as tolerated, to goal of 45mL/hr. Given 22 hour daily infusion, this would provide 1782kcal, 80g protein and 719mL free water. Recommend 30mL water flush every 4 hours.
--- NOTE | 2020-07-23 15:00 | P.PNIM_ITS ---
Progress Note: A&P Assessment and Plan (1) Acute cerebrovascular accident (CVA): Code(s): I63.9 - Cerebral infarction, unspecified Status: Acute Assessment and Plan: * Right frontoparietal stroke due to thrombosis of right M2 branch * Given history of paroxysmal atrial fibrillation this certainly could be cardioembolic * PT/OT * Make pt NPO as she is so drowsy today * pt on amiodarone drip heparin drip * pt is on Clinimix for nutrition * NG tube vadim to start tube feeds vadim * neurology consulted (2) Paroxysmal atrial fibrillation: Code(s): I48.0 - Paroxysmal atrial fibrillation Status: Acute Assessment and Plan: * Amiodarone drip * cardiology consulted (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: Code(s): E05.80 - Other thyrotoxicosis without thyrotoxic crisis or storm; T46.2X5A - Adverse effect of other antidysrhythmic drugs, initial encounter Status: Acute Assessment and Plan: * 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 Will hold losartan. (7) Diastolic congestive heart failure: Qualifiers: Heart failure chronicity: unspecified Qualified Code(s): I50.30 - Unspecified diastolic (congestive) heart failure Code(s): I50.30 - Unspecified diastolic (congestive) heart failure Status: Chronic Assessment and Plan: * Clinically stable (8) Insulin dependent type 2 diabetes mellitus: Code(s): E11.9 - Type 2 diabetes mellitus without complications; Z79.4 - USP (current) use of insulin Status: Chronic Assessment and Plan: * Basal and sliding scale insulin * [place] home Novolog 70/30 due to hospitalization with dietary restrictions (9) Transaminitis: Code(s): R74.01 - Elevation of levels of liver transaminase levels Status: Acute Assessment and Plan: * Suspect DICKSON * Hepatitis ABC panel negative * RUQ U/s pending (10) Elevated lactic acid level: Code(s): R79.89 - Other specified abnormal findings of blood chemistry Status: Acute Assessment and Plan: * * Improving (11) Elevated troponin: Code(s): R77.8 - Other specified abnormalities of plasma proteins Status: Acute Assessment and Plan: * Due to end-stage renal disease Or AF Additional Plan Pt is having poor access I have consulted surgery for femoral line placement, pt has dialysis line in situ Subjective Date/time seen: 07/23/20 15:00 Interval history: 70-year-old morbidly obese female with atrial fibrillation, chronic kidney disease now dialysis, hypertension, and sleep apnea who presented to the emergency department earlier today via EMS from home for evaluation of stroke-like symptoms. Unfortunate lady with a large dense stroke effecting her left side arm and leg and her speech. Pt to had dialysis yesterday. Pt in fast Af yesterday on heparin and amiodarone drip. Pt failed her swallow test and has difficult access surgery con
--- NOTE | 2020-07-23 15:00 | PM.IMPN ---
Progress Note: A&P Assessment and Plan (1) Acute cerebrovascular accident (CVA): Code(s): I63.9 - Cerebral infarction, unspecified Status: Acute Assessment and Plan: Right frontoparietal stroke due to thrombosis of right M2 branch Given history of paroxysmal atrial fibrillation this certainly could be cardioembolic PT/OT Make pt NPO as she is so drowsy today pt on amiodarone drip heparin drip pt is on Clinimix for nutrition NG tube vadim to start tube feeds vadim neurology consulted (2) Paroxysmal atrial fibrillation: Code(s): I48.0 - Paroxysmal atrial fibrillation Status: Acute Assessment and Plan: Amiodarone drip cardiology consulted (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: Code(s): E05.80 - Other thyrotoxicosis without thyrotoxic crisis or storm; T46.2X5A - Adverse effect of other antidysrhythmic drugs, initial encounter Status: Acute Assessment and Plan: 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 Will hold losartan. (7) Diastolic congestive heart failure: Qualifiers: Heart failure chronicity: unspecified Qualified Code(s): I50.30 - Unspecified diastolic (congestive) heart failure Code(s): I50.30 - Unspecified diastolic (congestive) heart failure Status: Chronic Assessment and Plan: Clinically stable (8) Insulin dependent type 2 diabetes mellitus: Code(s): E11.9 - Type 2 diabetes mellitus without complications; Z79.4 - intermediate teacher (current) use of insulin Status: Chronic Assessment and Plan: Basal and sliding scale insulin [place] home Novolog 70/30 due to hospitalization with dietary restrictions (9) Transaminitis: Code(s): R74.01 - Elevation of levels of liver transaminase levels Status: Acute Assessment and Plan: Suspect DICKSON Hepatitis ABC panel negative RUQ U/s pending (10) Elevated lactic acid level: Code(s): R79.89 - Other specified abnormal findings of blood chemistry Status: Acute Assessment and Plan: Improving (11) Elevated troponin: Code(s): R77.8 - Other specified abnormalities of plasma proteins Status: Acute Assessment and Plan: Due to end-stage renal disease Or AF Additional Plan Pt is having poor access I have consulted surgery for femoral line placement, pt has dialysis line in situ Subjective Date/time seen: 07/23/20 15:00 Interval history: 70-year-old morbidly obese female with atrial fibrillation, chronic kidney disease now dialysis, hypertension, and sleep apnea who presented to the emergency department earlier today via EMS from home for evaluation of stroke-like symptoms. Unfortunate lady with a large dense stroke effecting her left side arm and leg and her speech. Pt to had dialysis yesterday. Pt in fast Af yesterday on heparin and amiodarone drip. Pt failed her swallow test and has difficult access surgery consulted artist representative consulted. Nephrology rounding, cardiology rounding, neurology consulted. Review of Systems Review of Systems: All systems reviewed & are unremarkable except as noted in HPI and below Exam Narrative: Exam Narrative: GENERALLY: MORBIDLY OBESE HEENT: PERRLA NECK: No JVD, adenopathy, or thyromegaly CHEST: Clear to auscultation. Normal effort. HEART: IRREGULAR IRREGULAR ABDOMEN: BS+, soft, nontend
[2020-07-23 15:17] LABS: Triglycerides 130 mg/dL (<150)
[2020-07-23 15:36] LABS: Partial Thromboplastin Time 71.1 SECONDS (22.3-36.8)
[2020-07-23 17:19] LABS: Glucose Point of Care 176 mg/dl (65-105)
--- NOTE | 2020-07-23 17:49 | PC.NURSE ---
Patient will be evaluated tomorrow for a central line by Dr. Hennessy, possibly put in in the afternoon. At Dr. Hennessy's suggestion, Dr. Florian was contacted regarding using a dialysis pigtail for the TPN. Dr. Florian did not want it used for such. Dr. Gaines was notified at 1750 that patient did not have suitable access for TPN. Dr. Gaines approved holding TPN till after central line is placed. Staff will monitor blood glucose as ordered.
[2020-07-23] MEDS: HEPARIN SOD/D5W 100 UNITS/ML 25,000 UNITS/250 ML BAG 9 UNITS IV CONT (22:01)
[2020-07-23 22:42] LABS: Partial Thromboplastin Time > 200.0 SECONDS (22.3-36.8)
[2020-07-24] VITALS (34 sets, daily range): BP systolic 110–160; BP diastolic 33–74; PULSE 56–137; RESP 12–18; TEMP 36–36.8; O2SAT 99–100
[2020-07-24 00:16] LABS: Glucose Point of Care 156 mg/dl (65-105)
[2020-07-24] MEDS: AMIODARONE 360 MG/D5W 200 ML 360 MG/200 ML BAG 16.67 MG IV CONT ×2 (02:51→14:04)
[2020-07-24 04:13] LABS: Thyroid Peroxidase Antibodies <1 IU/mL (<9)
[2020-07-24 05:51] LABS: Glucose Point of Care 142 mg/dl (65-105)
[2020-07-24 06:42] LABS: Basophils Percent Auto 0.2 % (0.2-1.2); Eosinophils Absolute Auto 0.1 K/mm3 (0-0.3); Hematocrit 32.1 % (37.0-47.0); Hemoglobin 10.9 g/dL (12.0-15.0); Immature Granulocyte Absolute 0.08 K/mm3 (0.00-0.031); Lymphocytes Absolute Auto 1.38 K/mm3 (0.9-3.2); Lymphocytes Percent Auto 16.4 % (18.3-44.2); Mean Corpuscular Hemoglobin 27.3 pg (26-34); Mean Corpuscular Volume 80.3 fl (80-100); Mean Platelet Volume 9.4 fl (7.4-10.4); Monocytes Absolute Auto 0.9 K/mm3 (0.1-0.6); Monocytes Percent Auto 10.6 % (2.6-8.5); Neutrophils Percent Auto 70.8 % (45.5-73.1); Nucleated Red Blood Cells Perc 0.2 % (0.0-0.2); Platelet Count Result 157 k/mm3 (150-375); Red Cell Distribution Width 18.1 % (11.5-14.5); White Blood Count 8.4 K/mm3 (4.5-10.0)
[2020-07-24 06:55] LABS: Partial Thromboplastin Time 42.9 SECONDS (22.3-36.8)
[2020-07-24 07:05] LABS: Alanine Aminotransferase 26 U/L (4-35); Albumin Level 2.9 g/dL (3.5-5.1); Alkaline Phosphatase 76 U/L (38-126); Anion Gap 8 mmol/L (8-16); Aspartate Amino Transferase 57 U/L (14-36); Bilirubin,Total 0.6 mg/dL (0.2-1.3); Blood Urea Nitrogen 42 mg/dL (7-17); Calcium 10.1 mg/dL (8.4-10.2); Carbon Dioxide 31 mmol/L (22-30); Chloride 97 mmol/L (98-107); Estimated CRCL calculation 9 ml/min; Estimated Glomerular Filt Rate 8; Glucose 145 mg/dL (65-105); Phosphorus 5.9 mg/dL (2.5-4.5); Potassium 3.9 mmol/L (3.4-5.0); Sodium 136 mmol/L (137-145)
[2020-07-24] MEDS: HEPARIN SODIUM 5,000 UNITS/ML VIAL 4000 UNITS IV PUSH (07:24)
--- NOTE | 2020-07-24 08:11 | P.PNNP_ITS ---
Progress Note: A&P Assessment and Plan (1) End stage renal disease: Code(s): N18.6 - End stage renal disease Status: Chronic Assessment and Plan: * HD to be done later today. * volume status looks okay. * Blood pressure is doing pretty well. systolic in the 130s. * Acid-base balance is good. (2) Acute cerebrovascular accident (CVA): Code(s): I63.9 - Cerebral infarction, unspecified Status: Acute Assessment and Plan: CT shows right temporoparietal infarct * Acutely thrombosed right M2 branch of the superior margin of the sylvian fissure * Neurology following * PT/OT ordered * Speech therapy evaluation underway as well because she is having problem swallowing. (3) Hyperkalemia: Code(s): E87.5 - Hyperkalemia Status: Acute Assessment and Plan: * potassium okay today. * will use 3k bath. (4) Essential hypertension: Onset Date: Unknown Code(s): I10 - Essential (primary) hypertension Status: Chronic Assessment and Plan: * Systolic running 130 to 150 over the last 2 shifts. * Would like to allow blood pressure to run a little bit high * Heart rate 60. (5) Afib: Qualifiers: Atrial fibrillation type: unspecified Qualified Code(s): I48.91 - Unspecified atrial fibrillation Code(s): I48.91 - Unspecified atrial fibrillation Status: Chronic Assessment and Plan: * continue rate control strategy * On heparin drip while oral anticoagulation is reinstated. (6) Diabetes mellitus: Onset Date: Unknown Qualifiers: Diabetes mellitus type: type 2 Diabetes mellitus mcc insulin use: with assistant terminal manager use Diabetes mellitus complication status: with kidney complications Diabetes mellitus complication detail: with chronic kidney disease Chronic kidney disease stage: stage 3 (moderate) Chronic kidney disease stage 3 subtype: unspecified whether 3a or 3b Qualified Code(s): E11.22 - Type 2 diabetes mellitus with diabetic chronic kidney disease; N18.30 - Chronic kidney disease, stage 3 unspecified; Z79.4 - alf (current) use of insulin Code(s): E11.9 - Type 2 diabetes mellitus without complications Status: Chronic Assessment and Plan: * follow accuchecks * glycemic control Will continue to follow. Subjective Date/time seen: 07/24/20 08:11 Interval history: Shaniqua is resting comfortably in bed. No chest pain or shortness of breath. Review of Systems Cardiovascular: Cardiovascular: Reports no additional cardiovascular complai nts Respiratory: Respiratory: Reports no additional respiratory complaints Gastrointestinal: Gastrointestinal: Reports no additional gastrointestinal complaints Genitourinary: Genitourinary: Reports no additional female genitourinary complaints Exam Narrative: Exam Narrative: General: WD/WN AA female in NAD Heart: normal S1 and S2; no rub Or gallop Lungs: clear bilaterally Abdomen: soft, nontender, nondistended, positive bowel sounds Extremities: no cyanosis or clubbing; no edema. Left upper arm graft has good thrill and bruit. Skin: no rash Neuro: dense left hemiparesis. Objective Data Vital Signs Vital Signs: Vital Signs - 24 hr 07/23/20 10:00 07/23/20 12:00 07/23/20 14:00 Temperature Pulse Rate 64 61 62 Respiratory Rate 18
--- NOTE | 2020-07-24 08:11 | PM.PNNEP ---
Progress Note: A&P Assessment and Plan (1) End stage renal disease: Code(s): N18.6 - End stage renal disease Status: Chronic Assessment and Plan: HD to be done later today. volume status looks okay. Blood pressure is doing pretty well. systolic in the 130s. Acid-base balance is good. (2) Acute cerebrovascular accident (CVA): Code(s): I63.9 - Cerebral infarction, unspecified Status: Acute Assessment and Plan: CT shows right temporoparietal infarct Acutely thrombosed right M2 branch of the superior margin of the sylvian fissure Neurology following PT/OT ordered Speech therapy evaluation underway as well because she is having problem swallowing. (3) Hyperkalemia: Code(s): E87.5 - Hyperkalemia Status: Acute Assessment and Plan: potassium okay today. will use 3k bath. (4) Essential hypertension: Onset Date: Unknown Code(s): I10 - Essential (primary) hypertension Status: Chronic Assessment and Plan: Systolic running 130 to 150 over the last 2 shifts. Would like to allow blood pressure to run a little bit high Heart rate 60. (5) Afib: Qualifiers: Atrial fibrillation type: unspecified Qualified Code(s): I48.91 - Unspecified atrial fibrillation Code(s): I48.91 - Unspecified atrial fibrillation Status: Chronic Assessment and Plan: continue rate control strategy On heparin drip while oral anticoagulation is reinstated. (6) Diabetes mellitus: Onset Date: Unknown Qualifiers: Diabetes mellitus type: type 2 Diabetes mellitus fci insulin use: with technician terminal and repeater use Diabetes mellitus complication status: with kidney complications Diabetes mellitus complication detail: with chronic kidney disease Chronic kidney disease stage: stage 3 (moderate) Chronic kidney disease stage 3 subtype: unspecified whether 3a or 3b Qualified Code(s): E11.22 - Type 2 diabetes mellitus with diabetic chronic kidney disease; N18.30 - Chronic kidney disease, stage 3 unspecified; Z79.4 - technician terminal and repeater (current) use of insulin Code(s): E11.9 - Type 2 diabetes mellitus without complications Status: Chronic Assessment and Plan: follow accuchecks glycemic control Will continue to follow. Subjective Date/time seen: 07/24/20 08:11 Interval history: Shaniqua is resting comfortably in bed. No chest pain or shortness of breath. Review of Systems Cardiovascular: Cardiovascular: Reports no additional cardiovascular complaints Respiratory: Respiratory: Reports no additional respiratory complaints Gastrointestinal: Gastrointestinal: Reports no additional gastrointestinal complaints Genitourinary: Genitourinary: Reports no additional female genitourinary complaints Exam Narrative: Exam Narrative: General: WD/WN AA female in NAD Heart: normal S1 and S2; no rub Or gallop Lungs: clear bilaterally Abdomen: soft, nontender, nondistended, positive bowel sounds Extremities: no cyanosis or clubbing; no edema. Left upper arm graft has good thrill and bruit. Skin: no rash Neuro: dense left hemiparesis. Objective Data Vital Signs Vital Signs: Vital Signs - 24 hr 07/23/20 10:00 07/23/20 12:00 07/23/20 14:00 Temperature Pulse Rate 64 61 62 Respiratory Rate 18 Blood Pressure 142/40 H Pulse Oximetry 100 07/23/20 14:16 07/23/20 16:00 07/23/20 18:00 Temperature 36.2 C L Pulse Rate 63 53 L 69 Respiratory Rate 18 Blood Pressure 141/41 H Pulse Oximetry 100 07/23/20 20:00 07/23/20 21:43 07/23/20 23:42 Temperature 36.6 C Pulse Rate 68 67 Respiratory Rate 18 Blood Pressure 147/48 H Pulse Oximetry 100 100 07/24/20 00:00 07/24/20 01:49 07/24/20 02:51 Temperature 36.6 C Pulse Rate 56 L 59 L 62 Respiratory Rate 18 Blood Pressure 151/60 H Pulse Oximetry 100 07/24/20 04:00 07/24/20 05:44 05
--- NOTE | 2020-07-24 09:22 | PCSTNOTE ---
ST attempted treatment x2 this am; pt was getting a central line during first attempt; then, per RN, pt was going to dialysis and refused for pt.
--- NOTE | 2020-07-24 09:47 | WPDPROCEDUR ---
Procedures Central Line Placement Left IJ: Central Line Date: 07/24/20 Central Line Time: 08:45 Discussed w/ the patient/family/POA,the placement of a central venous catheter, including its clinical necessity/indication & associated potential risks, benifits and alternatives.: Yes The patient/family/POA understand(s) and acknowledge(s) the need to proceed with central venous catheter insertion as an important element of the patient's clinical management.: Yes Time Out Performed: Yes Patient Position: trendelenburg Patient placed on monitor/pulse ox: Yes Provider Prep: mask, sterile gown, sterile gloves, Max. sterile barrier precautions and cap Central line prep: 2% Chlorhexidine scrub and sterile full body sheet applied Local anesthesia used: lidocaine 1% Amount of anesthesia used (ml): 5 Sterile US Technique with sterile gel/sterile probe covers: Yes Central line lumen inserted: triple Length (cm): 16 Depth of Insertion (cm): 16 Post Procedure: sutured in place, good blood return, all ports aspirated, flushed, capped, transparent dressing, hemostatic product and aseptic technique maintained throughout procedure Post procedure x-ray: tip of catheter in good position and no pneumothorax seen Patient tolerated procedure: well Additional comments: Unable to advance guidewire completely initially. Is smaller catheter was advanced over guidewire. Guidewire was removed and reinserted with success. Patient had a thick skin is slightly more difficult than usual time in dilating. Otherwise no other complications noted
--- NOTE | 2020-07-24 13:45 | ECG_ITS ---
Measurements Intervals [place] Rate: 115 P: [place]: 0 QRS: 2 QRSD: 102 T: 144 QT: 381 QTc: 528 Interpretive Statements ATRIAL FIBRILLATION WITH RAPID VENTRICULAR RESPONSE ST-T WAVE ABNORMALITY IN HIGH LATERAL LEADS- CONSIDER ISCHEMIA BASELINE ARTIFACT- I, II, III, AVF ABNORMAL ECG Electronically Signed On 07-24-2020 14:16:39 CDT by Garrett Bucio D.O.
[2020-07-24] MEDS: CENTRAL LINE FLUSH 10 ML IV PUSH ×3 (14:08→23:40)
[2020-07-24] MEDS: TIMOLOL MALEATE 0.5% OP SOLN 5 ML BOTTLE 1 DROP EACH EYE ×2 (14:20→20:01)
[2020-07-24] MEDS: BRIMONIDINE TARTRATE 0.2% OP SOLN 5 ML BTL 1 DROP EACH EYE ×2 (14:20→20:01)
[2020-07-24 14:32] LABS: Partial Thromboplastin Time 73.5 SECONDS (22.3-36.8)
[2020-07-24] MEDS: AMIODARONE 150 MG/D5W 100 ML 150 MG/100 ML BAG 600 MG IV CONT (14:56)
--- NOTE | 2020-07-24 15:11 | PM.PNCARD ---
Progress Note: A&P Assessment and Plan (1) Acute cerebrovascular accident (CVA): Code(s): I63.9 - Cerebral infarction, unspecified Status: Acute Assessment and Plan: Very unfortunate complication. Right-sided stroke, probably cardioembolic a she had been off her Eliquis for a week for her graft surgery. This was a moderate-sized stroke. -Continue Eliquis but increase to a higher dose, 5 mg b.i.d., if okay with Neurology and Nephrology. On heparin infusion as she failed her swallow evaluation and is not taking p.o. continue statin therapy goal LDL less than 70. Prognosis is guarded. (2) Paroxysmal atrial fibrillation: Code(s): I48.0 - Paroxysmal atrial fibrillation Status: Acute Assessment and Plan: Patient reverted to A fib with RVR following dialysis today. She is currently on a continuous amiodarone drip at 0.5mg/min. Amio bolus x1 ordered. Continue IV heparin anticoagulation. Resume oral medical therapy when able. If AFib with RVR IV bolus and drip as necessary. (3) Altered mental status: Code(s): R41.82 - Altered mental status, unspecified Status: Acute Assessment and Plan: Alert and answers questions appropriately. (4) Diastolic congestive heart failure: Qualifiers: Heart failure chronicity: unspecified Qualified Code(s): I50.30 - Unspecified diastolic (congestive) heart failure Code(s): I50.30 - Unspecified diastolic (congestive) heart failure Status: Chronic Assessment and Plan: Chronic diastolic CHF, stable. Volume management with hemodialysis for end-stage renal disease. CPAP. (5) End-stage renal disease on hemodialysis: Code(s): N18.6 - End stage renal disease; Z99.2 - Dependence on renal dialysis Status: Acute Assessment and Plan: management per renal team. (6) long-term current use of amiodarone: Code(s): Z79.899 - Other manager terminal (current) drug therapy Status: Acute Assessment and Plan: Thyroid issues not related amiodarone as this predated initiation. Nonetheless, will need to monitor very closely as amiodarone may complicate management. (7) Hyperthyroidism: Code(s): E05.90 - Thyrotoxicosis, unspecified without thyrotoxic crisis or storm Status: Acute Assessment and Plan: Defer to primary service. Patient had a very low TSH in March 2020 prior to initiating amiodarone. 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 Methimazole. Additional Plan Will add sotalol to allergy list Subjective Date/time seen: 07/24/20 15:11 Interval history: Date of service 07/24/2020: Today patient is doing well. She complains of pain on her coccyx. She has recently returned from dialysis when I examined her and she is feeling fatigued and weak. Per nursing, upon return from dialysis she was noted to be in atrial fibrillation with rapid ventricular response. EKG was obtained. Blood pressure stable with RVR and patient is asymptomatic. Amiodarone bolus ordered. Review of Systems Constitutional: Constitutional: Reports fatigue, Reports lethargy and Reports weakness Eyes: Eyes: Reports no additional eye complaints ENT: Denies epistaxis and Denies nasal congestion Cardiovascular: Cardiovascular: Denies chest pain, Denies pedal edema, Denies lightheadedness, Denies palpitations, Denies dyspnea and Denies dyspnea on exertion Respiratory: Respiratory: Denies cough, Denies dyspnea and Denies dyspnea on exertion Gastrointestinal: G
--- NOTE | 2020-07-24 15:32 | PCOTNOTE ---
Attempted therapy session with patient, but patient declined stating she had just seen physical therapy and had dialysis today and was too tired to do anything.
--- NOTE | 2020-07-24 15:46 | PC.NURSE ---
Patient returned for dialysis at 1330, oriented x3, no complaints of chest pain or shortness of breath. Blood pressure noted to be 108/43, heart rate 123. STAT ekg obtained, noting afib with rvr rhythm. Cardiology advised, and an order was obtained for Amiodarone 150 mg ivpush bolus, once. Will continue to monitor closely.
[2020-07-24] MEDS: METOPROLOL TARTRATE INJ 5 MG/5 ML VIAL IV PUSH ×2 (16:18→23:40)
--- NOTE | 2020-07-24 17:01 | ECG_ITS ---
Measurements Intervals [place] Rate: 63 P: 44 [place]: 150 QRS: 6 QRSD: 95 T: 88 QT: 514 QTc: 526 Interpretive Statements SINUS RHYTHM POSSIBLE LEFT ATRIAL ENLARGEMENT NONSPECIFIC T-WAVE ABNORMALITY- HIGH LATERAL LEADS PROLONGED QT INTERVAL BASELINE ARTIFACT- I, III, AVR, AVL ABNORMAL ECG Electronically Signed On 07-25-2020 6:33:52 CDT by Garrett Bucio D.O.
--- NOTE | 2020-07-24 17:15 | ECG_ITS ---
Measurements Intervals [place] Rate: 60 P: 47 SC: 139 QRS: 15 QRSD: 99 T: 116 QT: 484 QTc: 486 Interpretive Statements SINUS RHYTHM ST-T WAVE ABNORMALITY IN HIGH LATERAL LEADS- CONSIDER ISCHEMIA BASELINE WANDER- V6 ABNORMAL ECG Electronically Signed On 07-28-2020 15:08:10 CDT by Garrett Bucio D.O.
--- NOTE | 2020-07-24 17:15 | PC.NURSE ---
Spoke with patient regarding benefits of NG tube, patient continues to refuse NG placement. Dr. Gaines notified.
--- NOTE | 2020-07-24 17:26 | PC.NURSE ---
Patient rhythm noted to be sinus melany at 1652, ekg obtained to confirm.
--- NOTE | 2020-07-24 17:45 | P.PNIM_ITS ---
Progress Note: A&P Assessment and Plan (1) Acute cerebrovascular accident (CVA): Code(s): I63.9 - Cerebral infarction, unspecified Status: Acute Assessment and Plan: * Right frontoparietal stroke due to thrombosis of right M2 branch * Given history of paroxysmal atrial fibrillation this certainly could be cardioembolic * PT/OT * Make pt NPO as she is so drowsy today * pt on amiodarone drip heparin drip * pt is on Clinimix for nutrition * pt had line placed today * neurology consulted (2) Paroxysmal atrial fibrillation: Code(s): I48.0 - Paroxysmal atrial fibrillation Status: Acute Assessment and Plan: * Amiodarone drip * cardiology consulted (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 Pt had dialysis today. (5) Hyperkalemia: Code(s): E87.5 - Hyperkalemia Status: Acute Assessment and Plan: * Resolved * Hold losartan (6) Essential hypertension: Onset Date: Unknown Code(s): I10 - Essential (primary) hypertension Status: Chronic Assessment and Plan: * Blood pressure is running a bit low for acute stroke. Will hold losartan. (7) Diastolic congestive heart failure: Qualifiers: Heart failure chronicity: unspecified Qualified Code(s): I50.30 - Unspecified diastolic (congestive) heart failure Code(s): I50.30 - Unspecified diastolic (congestive) heart failure Status: Chronic Assessment and Plan: * Clinically stable (8) Insulin dependent type 2 diabetes mellitus: Code(s): E11.9 - Type 2 diabetes mellitus without complications; Z79.4 - MCFP (current) use of insulin Status: Chronic Assessment and Plan: * Basal and sliding scale insulin * Hole home Novolog 70/30 due to hospitalization with dietary restrictions (9) Transaminitis: Code(s): R74.01 - Elevation of levels of liver transaminase levels Status: Acute Assessment and Plan: * Suspect DICKSON * Hepatitis ABC panel negative * RUQ U/s pending (10) Elevated lactic acid level: Code(s): R79.89 - Other specified abnormal findings of blood chemistry Status: Acute Assessment and Plan: * Improving (11) Elevated troponin: Code(s): R77.8 - Other specified abnormalities of plasma proteins Status: Acute Assessment and Plan: * Due to end-stage renal disease Or AF Subjective Date/time seen: 07/24/20 17:45 Interval history: 70-year-old morbidly obese female with atrial fibrillation, chronic kidney disease now dialysis, hypertension, and sleep apnea who presented to the emergency department earlier today via EMS from home for evaluation of stroke-like symptoms. Unfortunate lady with a large dense stroke effecting her left side arm and leg and her speech. Pt had Line placed today and dialysis. Pt has converted to NSR from AF Review of Systems Review of Systems: All systems reviewed & are unremarkable except as noted in HPI and below Exam Narrative: Exam Narrati
--- NOTE | 2020-07-24 17:45 | PM.IMPN ---
Progress Note: A&P Assessment and Plan (1) Acute cerebrovascular accident (CVA): Code(s): I63.9 - Cerebral infarction, unspecified Status: Acute Assessment and Plan: Right frontoparietal stroke due to thrombosis of right M2 branch Given history of paroxysmal atrial fibrillation this certainly could be cardioembolic PT/OT Make pt NPO as she is so drowsy today pt on amiodarone drip heparin drip pt is on Clinimix for nutrition pt had line placed today neurology consulted (2) Paroxysmal atrial fibrillation: Code(s): I48.0 - Paroxysmal atrial fibrillation Status: Acute Assessment and Plan: Amiodarone drip cardiology consulted (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 Pt had dialysis today. (5) Hyperkalemia: Code(s): E87.5 - Hyperkalemia Status: Acute Assessment and Plan: Resolved Hold losartan (6) Essential hypertension: Onset Date: Unknown Code(s): I10 - Essential (primary) hypertension Status: Chronic Assessment and Plan: Blood pressure is running a bit low for acute stroke. Will hold losartan. (7) Diastolic congestive heart failure: Qualifiers: Heart failure chronicity: unspecified Qualified Code(s): I50.30 - Unspecified diastolic (congestive) heart failure Code(s): I50.30 - Unspecified diastolic (congestive) heart failure Status: Chronic Assessment and Plan: Clinically stable (8) Insulin dependent type 2 diabetes mellitus: Code(s): E11.9 - Type 2 diabetes mellitus without complications; Z79.4 - adjunct faculty for medical terminology (current) use of insulin Status: Chronic Assessment and Plan: Basal and sliding scale insulin [place] home Novolog 70/30 due to hospitalization with dietary restrictions (9) Transaminitis: Code(s): R74.01 - Elevation of levels of liver transaminase levels Status: Acute Assessment and Plan: Suspect DICKSON Hepatitis ABC panel negative RUQ U/s pending (10) Elevated lactic acid level: Code(s): R79.89 - Other specified abnormal findings of blood chemistry Status: Acute Assessment and Plan: Improving (11) Elevated troponin: Code(s): R77.8 - Other specified abnormalities of plasma proteins Status: Acute Assessment and Plan: Due to end-stage renal disease Or AF Subjective Date/time seen: 07/24/20 17:45 Interval history: 70-year-old morbidly obese female with atrial fibrillation, chronic kidney disease now dialysis, hypertension, and sleep apnea who presented to the emergency department earlier today via EMS from home for evaluation of stroke-like symptoms. Unfortunate lady with a large dense stroke effecting her left side arm and leg and her speech. Pt had Line placed today and dialysis. Pt has converted to NSR from AF Review of Systems Review of Systems: All systems reviewed & are unremarkable except as noted in HPI and below Exam Narrative: Exam Narrative: GENERALLY: MORBIDLY OBESE HEENT: PERRLA NECK: No JVD, adenopathy, or thyromegaly CHEST: Clear to auscultation. Normal effort. HEART: IRREGULAR IRREGULAR ABDOMEN: BS+, soft, nontender, no mass, no bruits EXTREMITIES: No cyanosis, edema, or clubbing NEUROLOGIC: CN WITH MODERATE LEFT FACIAL DROOP APHASIC MUSCULOSKELETAL: L Arm 4/5 and L Leg 3/5 R leg 3/5 PSYCH: Alert. Aphasic Objective Data Vital Signs Vital Signs: Vital Signs - 24 hr 07/23/20 18:
[2020-07-24 18:04] LABS: Glucose Point of Care 137 mg/dl (65-105)
[2020-07-24 18:04] LABS: Glucose Point of Care 111 mg/dl (65-105)
[2020-07-24 18:05] LABS: Glucose Point of Care 135 mg/dl (65-105)
--- NOTE | 2020-07-24 18:46 | PC.NURSE ---
Spoke with Dr. Gaines regarding NG tube placement, and continued refusal to allow NG placement. is aware, and advised that she will address NG placement/nutrition tomorrow.
[2020-07-24 20:09] LABS: Partial Thromboplastin Time 67.8 SECONDS (22.3-36.8)
[2020-07-24] MEDS: HEPARIN SODIUM 5,000 UNITS/ML VIAL 3000 UNITS IV PUSH (22:24)
[2020-07-25] VITALS (20 sets, daily range): BP systolic 81–118; BP diastolic 29–46; PULSE 48–64; RESP 16–17; TEMP 36.3–36.7; O2SAT 92–100
[2020-07-25 00:11] LABS: Glucose Point of Care 139 mg/dl (65-105)
[2020-07-25] MEDS: HEPARIN SOD/D5W 100 UNITS/ML 25,000 UNITS/250 ML BAG 12 UNITS IV CONT (00:21)
[2020-07-25] MEDS: AMIODARONE 360 MG/D5W 200 ML 360 MG/200 ML BAG 16.67 MG IV CONT (00:22)
[2020-07-25] MEDS: METOPROLOL TARTRATE INJ 5 MG/5 ML VIAL IV PUSH ×2 (04:37→09:31)
[2020-07-25 04:51] LABS: Hematocrit 35.4 % (37.0-47.0); Hemoglobin 11.5 g/dL (12.0-15.0); Mean Corpuscular HGB Conc 32.5 g/dl (32-36); Mean Corpuscular Hemoglobin 26.9 pg (26-34); Mean Corpuscular Volume 82.7 fl (80-100); Mean Platelet Volume 10.1 fl (7.4-10.4); Platelet Count Result 163 k/mm3 (150-375); Red Blood Count 4.28 M/mm3 (4.2-5.4); Red Cell Distribution Width 18.8 % (11.5-14.5); White Blood Count 9.5 K/mm3 (4.5-10.0)
[2020-07-25 05:07] LABS: Partial Thromboplastin Time 151.2 SECONDS (22.3-36.8)
[2020-07-25 05:16] LABS: Anion Gap 9 mmol/L (8-16); Blood Urea Nitrogen 21 mg/dL (7-17); Calcium 9.9 mg/dL (8.4-10.2); Carbon Dioxide 31 mmol/L (22-30); Chloride 97 mmol/L (98-107); Estimated CRCL calculation 13 ml/min; Estimated Glomerular Filt Rate 12; Glucose 131 mg/dL (65-105); Phosphorus 4.9 mg/dL (2.5-4.5); Sodium 137 mmol/L (137-145)
[2020-07-25] MEDS: CENTRAL LINE FLUSH 10 ML IV PUSH ×4 (06:23→20:34)
[2020-07-25 09:02] LABS: Glucose Point of Care 132 mg/dl (65-105)
[2020-07-25] MEDS: TIMOLOL MALEATE 0.5% OP SOLN 5 ML BOTTLE 1 DROP EACH EYE ×2 (09:30→20:33)
[2020-07-25] MEDS: BRIMONIDINE TARTRATE 0.2% OP SOLN 5 ML BTL 1 DROP EACH EYE ×2 (09:30→20:32)
--- NOTE | 2020-07-25 10:45 | PCDIET ---
Nutrition Follow-Up Complete: Nutrition Diagnosis: Inadequate oral intake related to altered mental status as evidenced by NPO diet, nutrition support order. Nutrition Goal: Patient to meet estimated nutritional needs. Goal not met. Patient working with therapy at time of visit. Clinimix not yet initiated, per RN. Dr. Gaines discussed with RN and ordered to use Clinimix as previously ordered and repeat swallow evaluation tomorrow, 07/26/20. Clinimix E at 80mL/hr provides 1153kcal and 82g protein daily. If unable to safely advance diet, recommend Nepro at 45mL/hr goal rate via NG or g-tube. Last recorded weight is 99.9 kg. Bowel Motility: Last documented BM on 07/24/20. Labs Reviewed: Hgb (11.5), Hct (35.4), Glu (131), BUN (21), Cr (4.5), PO4 (4.9) Meds Noted: Albumin, Hydralazine, Lopressor Additional Notes: Left arm incision documented, but no pressure sores. Will continue to monitor with same goal. Nutrition Monitoring and Evaluation: Follow up every Tuesday/Tuesday.
[2020-07-25 11:58] LABS: Glucose Point of Care 168 mg/dl (65-105)
[2020-07-25] MEDS: HEPARIN SOD/D5W 100 UNITS/ML 25,000 UNITS/250 ML BAG 10 UNITS IV CONT ×2 (12:00→22:30)
[2020-07-25 12:33] LABS: Partial Thromboplastin Time 57.7 SECONDS (22.3-36.8)
--- NOTE | 2020-07-25 12:50 | PM.PNCARD ---
Progress Note: A&P Assessment and Plan (1) Tachycardia-bradycardia syndrome: Code(s): I49.5 - Sick sinus syndrome Status: Acute Assessment and Plan: Paroxysmal AFib with RVR now with bradycardia on amiodarone and metoprolol. Amiodarone discontinued by primary service, I have discontinued beta-usman therapy. Patient will require resumption of amiodarone as she will revert to atrial fibrillation with rapid ventricular response once again if medical therapy is held. Difficult management. Patient is not a great candidate for permanent pacemaker implantation, will try to avoid. Patient is in sinus rhythm without high-grade AV block or prolonged pauses thus far. Resume Amiodarone if HR increasing or reversion to A. Fib. (2) Paroxysmal atrial fibrillation: Code(s): I48.0 - Paroxysmal atrial fibrillation Status: Acute Assessment and Plan: Difficult to control atrial fibrillation with rapid ventricular response seems to been triggered with hemodialysis of late associated with relative hypotension. She has been maintained IV amiodarone and due to rapid AFib IV beta blockers initiated yesterday with good control with reversion to sinus rhythm. However, overnight became more bradycardic with relative hypotension heart rate and 40 systolic blood pressures 80s-100's (3) Hypotension: Code(s): I95.9 - Hypotension, unspecified Status: Acute Assessment and Plan: Recheck BP. If persistent give IV bolus 250 cc normal saline, repeat if SBP remains less than 100 mmHg. Will need to be cautious with volume. (4) Acute cerebrovascular accident (CVA): Code(s): I63.9 - Cerebral infarction, unspecified Status: Acute Assessment and Plan: Very unfortunate complication. Right-sided stroke, probably cardioembolic a she had been off her Eliquis for a week for her graft surgery. This was a moderate-sized stroke. -Continue Eliquis but increase to a higher dose, 5 mg b.i.d., if okay with Neurology and Nephrology. On heparin infusion as she failed her swallow evaluation and is not taking p.o. continue statin therapy goal LDL less than 70. Prognosis is guarded. (5) Altered mental status: Code(s): R41.82 - Altered mental status, unspecified Status: Acute Assessment and Plan: Variable. Nutritional support. (6) Diastolic congestive heart failure: Qualifiers: Heart failure chronicity: unspecified Qualified Code(s): I50.30 - Unspecified diastolic (congestive) heart failure Code(s): I50.30 - Unspecified diastolic (congestive) heart failure Status: Chronic Assessment and Plan: Chronic diastolic CHF, stable. Volume management with hemodialysis for end-stage renal disease. CPAP as able to tolerate. (7) End-stage renal disease on hemodialysis: Code(s): N18.6 - End stage renal disease; Z99.2 - Dependence on renal dialysis Status: Acute Assessment and Plan: management per renal team. Avoid excessive hypotension as this will trigger A.Fib with RVR. (8) salvage determiner current use of amiodarone: Code(s): Z79.899 - Other termite treater (current) drug therapy Status: Acute Assessment and Plan: Thyroid issues not related amiodarone as this predated initiation. Nonetheless, will need to monitor very closely as amiodarone may complicate management. Defer to primary service. Alternatives to Amiodarone limited given circumstances, cardiac arrest while on Sotalol. (9) Hyperthyroidism: Code(s): E05.90 - Thyrotoxicosis, unspecified without thyrotoxic crisis or storm Status: Acute Assessment and Plan:
--- NOTE | 2020-07-25 13:09 | PM.IMPN ---
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 Pt had dialysis today. (5) Hyperkalemia: Code(s): E87.5 - Hyperkalemia Status: Acute Assessment and Plan: Resolved Hold losartan (6) Essential hypertension: Onset Date: Unknown Code(s): I10 - Essential (primary) hypertension Status: Chronic Assessment and Plan: Blood pressure is running a bit low for acute stroke. Will hold losartan. (7) Diastolic congestive heart failure: Qualifiers: Heart failure chronicity: unspecified Qualified Code(s): I50.30 - Unspecified diastolic (congestive) heart failure Code(s): I50.30 - Unspecified diastolic (congestive) heart failure Status: Chronic Assessment and Plan: Clinically stable (8) Insulin dependent type 2 diabetes mellitus: Code(s): E11.9 - Type 2 diabetes mellitus without complications; Z79.4 - terminal press operator (current) use of insulin Status: Chronic Assessment and Plan: Basal and sliding scale insulin Hole home Novolog 70/30 due to hospitalization with dietary restrictions (9) Transaminitis: Code(s): R74.01 - Elevation of levels of liver transaminase levels Status: Acute Assessment and Plan: Suspect DICKSON (10) Elevated lactic acid level: Code(s): R79.89 - Other specified abnormal findings of blood chemistry Status: Acute Assessment and Plan: Improving (11) Elevated troponin: Code(s): R77.8 - Other specified abnormalities of plasma proteins Status: Acute Assessment and Plan: Due to end-stage renal disease Or AF Subjective Date/time seen: 07/25/20 13:09 Interval history: 70-year-old morbidly obese female with atrial fibrillation, chronic kidney disease now dialysis, hypertension, and sleep apnea who presented to the emergency department earlier today via EMS from home for evaluation of stroke-like symptoms. Unfortunate lady with a large dense stroke effecting her left side arm and leg and her speech. Pt had Line placed today and dialysis yesterday. PT has converted to NSR and is bradycardic with low BP today. Restart oral amiodarone today when bp picks up. Pt passed he swallow test can start pudding thick liquids and pureed diet. Review of Systems Review of Systems: All systems reviewed & are unremarkable except as noted in HPI and below Exam Narrative: Exam Narrative: GENERALLY: MORBIDLY OBESE HEENT: PERRLA NECK: No JVD, adenopathy, or thyromegaly CHEST: Clear to auscultation. Normal effort. HEART REGULAR Rhythm ABDOMEN: BS+, soft, nontender, no mass, no bruits EXTREMITIES: No cyanosis, edema, or clubbing NEUROLOGIC: CN WITH MODERATE LEFT FACIAL DROOP APHASIC MUSCULOSKELETAL: L Arm 4/5 and L Leg 3/5 R leg 3/5 PSYCH: More alert today. Objective Data Vital Signs Vital Signs: Vital Sig
[2020-07-25] MEDS: HEPARIN SODIUM 5,000 UNITS/ML VIAL 3000 UNITS IV PUSH (13:24)
[2020-07-25 14:13] LABS: Thyroid Stimulating Immunoglob <89 % baseline (<140)
--- NOTE | 2020-07-25 17:32 | P.PNNP_ITS ---
Progress Note: A&P Assessment and Plan (1) End stage renal disease: Code(s): N18.6 - End stage renal disease Status: Chronic Assessment and Plan: * HD tomorrow. * volume status looks okay. * Blood pressure is lower today. Antihypertensives were held. * Will give a small amount of fluid as well. * Acid-base balance is good. (2) Acute cerebrovascular accident (CVA): Code(s): I63.9 - Cerebral infarction, unspecified Status: Acute Assessment and Plan: CT shows right temporoparietal infarct * Acutely thrombosed right M2 branch of the superior margin of the sylvian fissure * Neurology following * PT/OT ordered * Speech therapy evaluation underway as well because she is having problem swallowing. (3) Hyperkalemia: Code(s): E87.5 - Hyperkalemia Status: Acute Assessment and Plan: * potassium okay today. * will use 3k bath. (4) Essential hypertension: Onset Date: Unknown Code(s): I10 - Essential (primary) hypertension Status: Chronic Assessment and Plan: * Systolic running low. Meds held. * Would like to allow blood pressure to run a little bit high * Will give IV fluids tonight. Remove no fluid on dialysis tomorrow. * Heart rate 50-60 (5) Afib: Qualifiers: Atrial fibrillation type: unspecified Qualified Code(s): I48.91 - Unspecified atrial fibrillation Code(s): I48.91 - Unspecified atrial fibrillation Status: Chronic Assessment and Plan: * continue rate control strategy * On heparin drip while oral anticoagulation is reinstated. 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 insulin use: with longterm use Diabetes mellitus complication status: with kidney complications Diabetes mellitus complication detail: with chronic kidney disease Chronic kidney disease stage: stage 3 (moderate) Chronic kidney disease stage 3 subtype: unspecified whether 3a or 3b Qualified Code(s): E11.22 - Type 2 diabetes mellitus with diabetic chronic kidney disease; N18.30 - Chronic kidney disease, stage 3 unspecified; Z79.4 - alf (current) use of insulin Code(s): E11.9 - Type 2 diabetes mellitus without complications Status: Chronic Assessment and Plan: * follow accuchecks * glycemic control Will continue to follow. Subjective Date/time seen: 07/25/20 17:32 Interval history: Shaniqua is resting comfortably in bed. No chest pain or shortness of breath. Happy that she can eat. Exam Narrative: Exam Narrative: General: WD/WN AA female in NAD Heart: normal S1 and S2; no rub Or gallop Lungs: clear to auscultation Abdomen: soft, nontender, nondistended, positive bowel sounds Extremities: no cyanosis or clubbing; no edema. Left upper arm graft has good thrill and bruit. Skin: no rash or subcu nodules Neuro: dense left hemiparesis. Objective Data Vital Signs Vital Signs: Vital Signs - 24 hr 07/24/20 18:00 07/24/20 20:00 07/24/20 22:00 Temperature Pulse Rate 56 L 68 61 Respiratory Rate 18 Blood Pressure 125/33 L Pulse Oximetry 100 07/24/20 23:30 07/24/20 23:40 07/24/20 23:50 Temperature 36.3 C L Pulse Rate 57 L 56 L Respiratory Rate 16 Blood Pressure 1
--- NOTE | 2020-07-25 17:32 | PM.PNNEP ---
Progress Note: A&P Assessment and Plan (1) End stage renal disease: Code(s): N18.6 - End stage renal disease Status: Chronic Assessment and Plan: HD tomorrow. volume status looks okay. Blood pressure is lower today. Antihypertensives were held. Will give a small amount of fluid as well. Acid-base balance is good. (2) Acute cerebrovascular accident (CVA): Code(s): I63.9 - Cerebral infarction, unspecified Status: Acute Assessment and Plan: CT shows right temporoparietal infarct Acutely thrombosed right M2 branch of the superior margin of the sylvian fissure Neurology following PT/OT ordered Speech therapy evaluation underway as well because she is having problem swallowing. (3) Hyperkalemia: Code(s): E87.5 - Hyperkalemia Status: Acute Assessment and Plan: potassium okay today. will use 3k bath. (4) Essential hypertension: Onset Date: Unknown Code(s): I10 - Essential (primary) hypertension Status: Chronic Assessment and Plan: Systolic running low. Meds held. Would like to allow blood pressure to run a little bit high Will give IV fluids tonight. Remove no fluid on dialysis tomorrow. Heart rate 50-60 (5) Afib: Qualifiers: Atrial fibrillation type: unspecified Qualified Code(s): I48.91 - Unspecified atrial fibrillation Code(s): I48.91 - Unspecified atrial fibrillation Status: Chronic Assessment and Plan: continue rate control strategy On heparin drip while oral anticoagulation is reinstated. (6) Diabetes mellitus: Onset Date: Unknown Qualifiers: Diabetes mellitus type: type 2 Diabetes mellitus lobsterman insulin use: with lobsterman use Diabetes mellitus complication status: with kidney complications Diabetes mellitus complication detail: with chronic kidney disease Chronic kidney disease stage: stage 3 (moderate) Chronic kidney disease stage 3 subtype: unspecified whether 3a or 3b Qualified Code(s): E11.22 - Type 2 diabetes mellitus with diabetic chronic kidney disease; N18.30 - Chronic kidney disease, stage 3 unspecified; Z79.4 - snf (current) use of insulin Code(s): E11.9 - Type 2 diabetes mellitus without complications Status: Chronic Assessment and Plan: follow accuchecks glycemic control Will continue to follow. Subjective Date/time seen: 07/25/20 17:32 Interval history: Shaniqua is resting comfortably in bed. No chest pain or shortness of breath. Happy that she can eat. Exam Narrative: Exam Narrative: General: WD/WN AA female in NAD Heart: normal S1 and S2; no rub Or gallop Lungs: clear to auscultation Abdomen: soft, nontender, nondistended, positive bowel sounds Extremities: no cyanosis or clubbing; no edema. Left upper arm graft has good thrill and bruit. Skin: no rash or subcu nodules Neuro: dense left hemiparesis. Objective Data Vital Signs Vital Signs: Vital Signs - 24 hr 07/24/20 18:00 07/24/20 20:00 07/24/20 22:00 Temperature Pulse Rate 56 L 68 61 Respiratory Rate 18 Blood Pressure 125/33 L Pulse Oximetry 100 07/24/20 23:30 07/24/20 23:40 07/24/20 23:50 Temperature 36.3 C L Pulse Rate 57 L 56 L Respiratory Rate 16 Blood Pressure 111/47 L Pulse Oximetry 100 100 07/25/20 00:00 07/25/20 00:22 07/25/20 01:41 Temperature Pulse Rate 49 L 53 L 54 L Respiratory Rate Blood Pressure Pulse Oximetry 07/25/20 04:00 07/25/20 04:37 07/25/20 06:00 Temperature 36.3 C L Pulse Rate 58 L 59 L 61 Respiratory Rate 16 Blood Pressure 118/40 L Pulse Oximetry 100 07/25/20 08:00 07/25/20 09:02 07/25/20 10:00 Temperature 36.6 C Pulse Rate 59 L 48 L Respiratory Rate 16 Blood Pressure 101/46 L Pulse Oximetry 100 97 07/25/20 11:35 07/25/20 12:00 07/25/20 14:00 Temperature 36.6 C Pulse Rate 60 59 L
[2020-07-25 18:35] LABS: Glucose Point of Care 156 mg/dl (65-105)
[2020-07-25 18:40] LABS: Triglycerides 126 mg/dL (<150)
[2020-07-25] MEDS: SODIUM CHLORIDE 0.9% IV 1,000 ML 100 ML IV CONT (18:49)
[2020-07-25 20:20] LABS: Partial Thromboplastin Time 123.8 SECONDS (22.3-36.8)
[2020-07-25] MEDS: AMIODARONE HCL 200 MG TABLET PO (20:28)
[2020-07-25] MEDS: INSULIN GLARGINE (*BKC) 100 UNITS/ML 30 UNITS SUB-Q (22:23)
[2020-07-25 22:26] LABS: Glucose Point of Care 142 mg/dl (65-105)
[2020-07-26] VITALS (32 sets, daily range): BP systolic 97–152; BP diastolic 35–62; PULSE 57–68; RESP 14–21; TEMP 36.2–37.2; O2SAT 97–100
[2020-07-26 01:19] LABS: Glucose Point of Care 173 mg/dl (65-105)
[2020-07-26 02:59] LABS: Albumin Level 2.8 g/dL (3.5-5.1); Anion Gap 7 mmol/L (8-16); Blood Urea Nitrogen 30 mg/dL (7-17); Calcium 9.9 mg/dL (8.4-10.2); Carbon Dioxide 28 mmol/L (22-30); Chloride 100 mmol/L (98-107); Estimated CRCL calculation 9 ml/min; Estimated Glomerular Filt Rate 9; Glucose 163 mg/dL (65-105); Phosphorus 4.9 mg/dL (2.5-4.5); Potassium 3.6 mmol/L (3.4-5.0); Sodium 135 mmol/L (137-145)
[2020-07-26 03:03] LABS: Partial Thromboplastin Time 80.2 SECONDS (22.3-36.8)
[2020-07-26 06:33] LABS: Glucose Point of Care 143 mg/dl (65-105)
[2020-07-26] MEDS: CENTRAL LINE FLUSH 10 ML IV PUSH ×4 (06:37→21:04)
[2020-07-26 10:08] LABS: Partial Thromboplastin Time 94.3 SECONDS (22.3-36.8)
--- NOTE | 2020-07-26 10:15 | P.PNNP_ITS ---
Progress Note: A&P Assessment and Plan (1) End stage renal disease: Code(s): N18.6 - End stage renal disease Status: Chronic Assessment and Plan: * HD currently. * volume status looks okay. * Blood pressure is better today. * She is not getting any fluid off in dialysis. She is eating better. * Acid-base balance is good. * Av graft has good thrill and bruit (2) Acute cerebrovascular accident (CVA): Code(s): I63.9 - Cerebral infarction, unspecified Status: Acute Assessment and Plan: CT shows right temporoparietal infarct * Acutely thrombosed right M2 branch of the superior margin of the sylvian fissure * Neurology following * PT/OT ordered * Speech therapy evaluation underway as well because she is having problem swallowing. (3) Hyperkalemia: Code(s): E87.5 - Hyperkalemia Status: Acute Assessment and Plan: * potassium okay today. * will use 3k bath. (4) Essential hypertension: Onset Date: Unknown Code(s): I10 - Essential (primary) hypertension Status: Chronic Assessment and Plan: * Systolic running low. Meds held. * Would like to allow blood pressure to run a little bit high * Heart rate 50-60 (5) Afib: Qualifiers: Atrial fibrillation type: unspecified Qualified Code(s): I48.91 - Unspecified atrial fibrillation Code(s): I48.91 - Unspecified atrial fibrillation Status: Chronic Assessment and Plan: * continue rate control strategy * On heparin drip while oral anticoagulation is reinstated. (6) Diabetes mellitus: Onset Date: Unknown Qualifiers: Diabetes mellitus type: type 2 Diabetes mellitus termite treater insulin use: with detention use Diabetes mellitus complication status: with kidney complications Diabetes mellitus complication detail: with chronic kidney disease Chronic kidney disease stage: stage 3 (moderate) Chronic kidney disease stage 3 subtype: unspecified whether 3a or 3b Qualified Code(s): E11.22 - Type 2 diabetes mellitus with diabetic chronic kidney disease; N18.30 - Chronic kidney disease, stage 3 unspecified; Z79.4 - group home (current) use of insulin Code(s): E11.9 - Type 2 diabetes mellitus without complications Status: Chronic Assessment and Plan: * follow accuchecks * glycemic control Will continue to follow. Subjective Date/time seen: 07/26/20 10:15 Interval history: Shaniqua is resting comfortably in bed. She is on dialysis and tolerating it well. Blood pressure is 132. We are taking no fluid off. No chest pain or shortness of breath. She ate some chicken wings yesterday for dinner she says. Exam Narrative: Exam Narrative: General: WD/WN AA female in NAD Heart: normal S1 and S2; no rub Or gallop Lungs: clear Bilaterally Abdomen: soft, nontender, nondistended, positive bowel sounds Extremities: no cyanosis or clubbing; no edema. Left upper arm graft has good thrill and bruit. Skin: no rash or subcu nodules Neuro: dense left hemiparesis. Objective Data Vital Signs Vital Signs: Vital Signs - 24 hr 07/25/20 11:35 07/25/20 12:00 07/25/20 14:00 Temperature 36.6 C Pulse Rate 60 59 L Respiratory Rate 16 Blood Pressure 81/29 L Pulse Oximetry 92 96 07/25/20 16:00 07/25/20 18:00 07/25/20 18:34
--- NOTE | 2020-07-26 10:15 | PM.PNNEP ---
Progress Note: A&P Assessment and Plan (1) End stage renal disease: Code(s): N18.6 - End stage renal disease Status: Chronic Assessment and Plan: HD currently. volume status looks okay. Blood pressure is better today. She is not getting any fluid off in dialysis. She is eating better. Acid-base balance is good. Av graft has good thrill and bruit (2) Acute cerebrovascular accident (CVA): Code(s): I63.9 - Cerebral infarction, unspecified Status: Acute Assessment and Plan: CT shows right temporoparietal infarct Acutely thrombosed right M2 branch of the superior margin of the sylvian fissure Neurology following PT/OT ordered Speech therapy evaluation underway as well because she is having problem swallowing. (3) Hyperkalemia: Code(s): E87.5 - Hyperkalemia Status: Acute Assessment and Plan: potassium okay today. will use 3k bath. (4) Essential hypertension: Onset Date: Unknown Code(s): I10 - Essential (primary) hypertension Status: Chronic Assessment and Plan: Systolic running low. Meds held. Would like to allow blood pressure to run a little bit high Heart rate 50-60 (5) Afib: Qualifiers: Atrial fibrillation type: unspecified Qualified Code(s): I48.91 - Unspecified atrial fibrillation Code(s): I48.91 - Unspecified atrial fibrillation Status: Chronic Assessment and Plan: continue rate control strategy On heparin drip while oral anticoagulation is reinstated. (6) Diabetes mellitus: Onset Date: Unknown Qualifiers: Diabetes mellitus type: type 2 Diabetes mellitus intermediate designer insulin use: with intermediate designer use Diabetes mellitus complication status: with kidney complications Diabetes mellitus complication detail: with chronic kidney disease Chronic kidney disease stage: stage 3 (moderate) Chronic kidney disease stage 3 subtype: unspecified whether 3a or 3b Qualified Code(s): E11.22 - Type 2 diabetes mellitus with diabetic chronic kidney disease; N18.30 - Chronic kidney disease, stage 3 unspecified; Z79.4 - care home (current) use of insulin Code(s): E11.9 - Type 2 diabetes mellitus without complications Status: Chronic Assessment and Plan: follow accuchecks glycemic control Will continue to follow. Subjective Date/time seen: 07/26/20 10:15 Interval history: Shaniqua is resting comfortably in bed. She is on dialysis and tolerating it well. Blood pressure is 132. We are taking no fluid off. No chest pain or shortness of breath. She ate some chicken wings yesterday for dinner she says. Exam Narrative: Exam Narrative: General: WD/WN AA female in NAD Heart: normal S1 and S2; no rub Or gallop Lungs: clear Bilaterally Abdomen: soft, nontender, nondistended, positive bowel sounds Extremities: no cyanosis or clubbing; no edema. Left upper arm graft has good thrill and bruit. Skin: no rash or subcu nodules Neuro: dense left hemiparesis. Objective Data Vital Signs Vital Signs: Vital Signs - 24 hr 07/25/20 11:35 07/25/20 12:00 07/25/20 14:00 Temperature 36.6 C Pulse Rate 60 59 L Respiratory Rate 16 Blood Pressure 81/29 L Pulse Oximetry 92 96 07/25/20 16:00 07/25/20 18:00 07/25/20 18:34 Temperature 36.6 C Pulse Rate 59 L 62 Respiratory Rate 16 Blood Pressure 90/34 L 107/42 L Pulse Oximetry 97 07/25/20 19:18 07/25/20 20:00 07/25/20 20:28 Temperature 36.7 C Pulse Rate 64 64 63 Respiratory Rate 17 Blood Pressure 107/42 L Pulse Oximetry 98 07/25/20 22:00 07/25/20 23:45 07/26/20 00:00 Temperature 36.3 C L Pulse Rate 63 62 Respiratory Rate 16 Blood Pressure 114/42 L Pulse Oximetry 93 97 07/26/20 02:00 07/26/20 04:00 07/26/20 06:00 Temperature 36.4 C L Pulse Rate 58 L 59 L 58 L Respiratory Rate 16 Blood Pressure 97/46 L
--- NOTE | 2020-07-26 12:32 | PCOTNOTE ---
Patient not available this pm due to dialysis
[2020-07-26 12:38] LABS: Glucose Point of Care 87 mg/dl (65-105)
[2020-07-26] MEDS: AMIODARONE HCL 200 MG TABLET PO ×2 (13:55→17:21)
[2020-07-26] MEDS: TIMOLOL MALEATE 0.5% OP SOLN 5 ML BOTTLE 1 DROP EACH EYE ×2 (13:56→21:04)
[2020-07-26] MEDS: BRIMONIDINE TARTRATE 0.2% OP SOLN 5 ML BTL 1 DROP EACH EYE ×2 (13:56→21:04)
--- NOTE | 2020-07-26 14:09 | PCPTNOTE ---
Attempted to see patient for Physical Therapy today. Patient stated that the pain at her buttocks was a 10/10 sharp pain. RN notified. Therapist was working on having pt. straighten her upper body in bed when patient's brother arrived. Shortly after that patient stated that she did not want to do physical therapy this afternoon. Therapist informed patient that they would come back to try to see her tomorrow.
--- NOTE | 2020-07-26 15:18 | PM.IMPN ---
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 Pt had dialysis today. (5) Hyperkalemia: Code(s): E87.5 - Hyperkalemia Status: Acute Assessment and Plan: Resolved Hold losartan (6) Essential hypertension: Onset Date: Unknown Code(s): I10 - Essential (primary) hypertension Status: Chronic Assessment and Plan: Blood pressure is running a bit low for acute stroke. Will hold losartan. (7) Diastolic congestive heart failure: Qualifiers: Heart failure chronicity: unspecified Qualified Code(s): I50.30 - Unspecified diastolic (congestive) heart failure Code(s): I50.30 - Unspecified diastolic (congestive) heart failure Status: Chronic Assessment and Plan: Clinically stable (8) Insulin dependent type 2 diabetes mellitus: Code(s): E11.9 - Type 2 diabetes mellitus without complications; Z79.4 - intermediate accountant (current) use of insulin Status: Chronic Assessment and Plan: Basal and sliding scale insulin [place] home Novolog 70/30 due to hospitalization with dietary restrictions (9) Transaminitis: Code(s): R74.01 - Elevation of levels of liver transaminase levels Status: Acute Assessment and Plan: Suspect DICKSON (10) Elevated lactic acid level: Code(s): R79.89 - Other specified abnormal findings of blood chemistry Status: Acute Assessment and Plan: Improving (11) Elevated troponin: Code(s): R77.8 - Other specified abnormalities of plasma proteins Status: Acute Assessment and Plan: Due to end-stage renal disease Or AF Subjective Date/time seen: 07/26/20 15:18 Interval history: 70-year-old morbidly obese female with atrial fibrillation, chronic kidney disease now dialysis, hypertension, and sleep apnea who presented to the emergency department earlier today via EMS from home for evaluation of stroke-like symptoms. Unfortunate lady with a large dense stroke effecting her left side arm and leg and her speech. Pt tolerating pudding thick liquids and pureed diet. Slow progress due to dense stroke pt is motivated to move. Pt had dialysis today. Review of Systems Review of Systems: All systems reviewed & are unremarkable except as noted in HPI and below Exam Narrative: Exam Narrative: GENERALLY: MORBIDLY OBESE HEENT: PERRLA NECK: No JVD, adenopathy, or thyromegaly CHEST: Clear to auscultation. Normal effort. HEART REGULAR Rhythm ABDOMEN: BS+, soft, nontender, no mass, no bruits EXTREMITIES: No cyanosis, edema, or clubbing NEUROLOGIC: CN WITH MODERATE LEFT FACIAL DROOP APHASIC MUSCULOSKELETAL: L Arm 4/5 and L Leg 3/5 R leg 3/5 PSYCH: More alert today. Objective Data Vital Signs Vital Signs: Vital Signs - 24 hr 07/25/20 16:00 07/25/20 18:00 07/25/20 18:34 Temperature 36.6 C Pulse Rate 59 L 62
[2020-07-26 15:21] LABS: Partial Thromboplastin Time 80.3 SECONDS (22.3-36.8)
[2020-07-26 17:52] LABS: Glucose Point of Care 185 mg/dl (65-105)
[2020-07-26 21:09] LABS: Glucose Point of Care 155 mg/dl (65-105)
[2020-07-26] MEDS: INSULIN GLARGINE (*BKC) 100 UNITS/ML 30 UNITS SUB-Q (21:56)
[2020-07-26] MEDS: HEPARIN SOD/D5W 100 UNITS/ML 25,000 UNITS/250 ML BAG 10 UNITS IV CONT (23:04)
[2020-07-27] VITALS (14 sets, daily range): BP systolic 100–128; BP diastolic 38–60; PULSE 57–85; RESP 16–19; TEMP 35.8–36.9; O2SAT 93–98
[2020-07-27] MEDS: CENTRAL LINE FLUSH 10 ML IV PUSH ×4 (06:39→22:21)
[2020-07-27 06:53] LABS: Hemoglobin 11.1 g/dL (12.0-15.0); Mean Corpuscular HGB Conc 32.6 g/dl (32-36); Mean Corpuscular Hemoglobin 26.6 pg (26-34); Mean Corpuscular Volume 81.3 fl (80-100); Mean Platelet Volume 10.2 fl (7.4-10.4); Platelet Count Result 150 k/mm3 (150-375); Red Blood Count 4.18 M/mm3 (4.2-5.4); Red Cell Distribution Width 18.6 % (11.5-14.5); White Blood Count 9.3 K/mm3 (4.5-10.0)
[2020-07-27 07:14] LABS: Glucose Point of Care 104 mg/dl (65-105)
[2020-07-27 07:15] LABS: Partial Thromboplastin Time 81.5 SECONDS (22.3-36.8)
[2020-07-27 07:29] LABS: Anion Gap 1 mmol/L (8-16); Blood Urea Nitrogen 14 mg/dL (7-17); Calcium 9.7 mg/dL (8.4-10.2); Carbon Dioxide 37 mmol/L (22-30); Chloride 97 mmol/L (98-107); Estimated CRCL calculation 15 ml/min; Estimated Glomerular Filt Rate 14; Glucose 113 mg/dL (65-105); Phosphorus 3.5 mg/dL (2.5-4.5); Potassium 3.2 mmol/L (3.4-5.0); Sodium 135 mmol/L (137-145)
[2020-07-27] MEDS: BRIMONIDINE TARTRATE 0.2% OP SOLN 5 ML BTL 1 DROP EACH EYE ×2 (08:39→22:20)
[2020-07-27] MEDS: TIMOLOL MALEATE 0.5% OP SOLN 5 ML BOTTLE 1 DROP EACH EYE ×2 (08:39→22:21)
[2020-07-27] MEDS: AMIODARONE HCL 200 MG TABLET PO ×2 (08:39→17:29)
--- NOTE | 2020-07-27 09:54 | PM.PNCARD ---
Progress Note: A&P Additional Plan 70-year-old lady with paroxysmal atrial fibrillation which seems to have responded well to amiodarone for the most part. Unfortunately she appeared to have had a embolic CVA when a necessary interruption in her anticoagulation occurred to created dialysis fistula. She seems to be stable is maintaining sinus rhythm no additional cardiac recommendations to make today Eric Hall MD [facility] Subjective Date/time seen: Date of service: 07/27/20 09:54 Interval history: Patient converted to sinus rhythm but has been bradycardic heart rate in the 40s, relatively hypotensive systolic blood pressure 80s to 100 this AM. Patient complains of soreness in her back side denies shortness of breath or chest pain. Sitting in chair time of evaluation. Appears quite fatigued, dysarthric awake and otherwise interactive. 07/27/2020: Patient is lying in bed upon awakening she is pleasant and cooperative. Seems to be speaking easily I do not notice any difficulty with her ability to vocalize. Telemetry demonstrates normal sinus rhythm/sinus bradycardia. Amiodarone is being continued Exam Const: General: comfortable and no acute distress Other: Obese black female no apparent distress HENMT: Mouth: Yes moist mucous membranes Eyes: Sclera: sclerae normal Pupils: Equal, round and reactive pupils present Neck: Neck: supple Resp: Effort & Inspection: normal respiratory effort Auscultation: clear to auscultation bilaterally Cardio: Rate: regular rate Rhythm: regular rhythm Other: PMI difficult to palpate no gallop no murmur GI: GI Palp: Yes Soft to palpation Auscultation: normal bowel sounds Neuro: Cognition (Neuro): normal cognition Objective Data Vital Signs Vital Signs: Vital Signs - 24 hr 07/26/20 10:00 07/26/20 10:15 07/26/20 10:30 Temperature Pulse Rate 62 59 L 60 Respiratory Rate Blood Pressure 141/62 H 118/50 L 126/54 L Pulse Oximetry 07/26/20 10:45 07/26/20 11:00 07/26/20 11:15 Temperature Pulse Rate 61 61 63 Respiratory Rate Blood Pressure 152/54 H 111/49 L 130/53 L Pulse Oximetry 07/26/20 11:30 07/26/20 11:45 07/26/20 11:57 Temperature Pulse Rate 60 60 63 Respiratory Rate Blood Pressure 115/51 L 120/51 L 120/53 L Pulse Oximetry 07/26/20 12:00 07/26/20 12:13 07/26/20 14:00 Temperature 36.6 C 36.4 C L Pulse Rate 63 64 68 Respiratory Rate 17 16 Blood Pressure 117/36 L 122/52 L Pulse Oximetry 97 07/26/20 16:00 07/26/20 18:00 07/26/20 20:00 Temperature 37.2 C 36.2 C L Pulse Rate 63 61 62 Respiratory Rate 16 16 Blood Pressure 110/35 L 100/42 L Pulse Oximetry 97 97 07/26/20 22:00 07/26/20 22:25 07/26/20 23:58 Temperature 36.2 C L Pulse Rate 67 61 Respiratory Rate 21 H 16 Blood Pressure 131/42 L Pulse Oximetry 100 07/27/20 00:00 07/27/20 02:00 07/27/20 04:00 Temperature 36.3 C L Pulse Rate 62 69 67 Respiratory Rate 18 Blood Pressure 128/40 L Pulse Oximetry 96 07/27/20 06:00 07/27/20 07:03 07/27/20 08:39 Temperature 36.2 C L Pulse Rate 66 85 67 Respiratory Rate 16 Blood Pressure 113/38 L Pulse Oximetry 98 Intake/Output Intake/Output: Intake & Output 07/24/20 07/25/20 07/26/20 07/27/20 23:59 23:59 23:59 23:59 Intake Total 400 1075 1370 93 Output Total 3000 0 0 0 Balance -2600 1075 1370 93 Meds/Results Medications: Active Medications Generic Name Dose Route Start Last Admin Trade Name Freq PRN Reason Stop Dose Admin Albuterol 2 puff 07/19/20 23:24 Albuterol Sulfate (*Sp) Aerosol 1 Puff INHALATION QID PRN Shortness Of Breath Amiodarone HCl 400 mg 07/22/20 17:00 07/22/20 17:39 Amiodarone Hcl 200 Mg Tablet PO Not Given BID JANKI Amiodarone HCl 200 mg 07/25/20 18:00 07/27/20 08:39 Amiodarone Hcl 200 Mg Tablet PO 200 mg BID JANKI Administration Aspirin 81 mg 07/22/20 09:00 07/22/20 15:14 Aspirin 81 Mg Enteric Tabl
--- NOTE | 2020-07-27 10:15 | P.PNNP_ITS ---
Progress Note: A&P Assessment and Plan (1) End stage renal disease: Code(s): N18.6 - End stage renal disease Status: Chronic Assessment and Plan: * HD currently. * volume status looks okay. * Blood pressure is improved. * eating better * Acid-base balance is good. * Av graft has good thrill and bruit (2) Acute cerebrovascular accident (CVA): Code(s): I63.9 - Cerebral infarction, unspecified Status: Acute Assessment and Plan: CT shows right temporoparietal infarct * Acutely thrombosed right M2 branch of the superior margin of the sylvian fissure * Neurology following * PT/OT underway * Speech therapy evaluation underway as well because she is having problem swallowing. (3) Hyperkalemia: Code(s): E87.5 - Hyperkalemia Status: Acute Assessment and Plan: * potassium low today. * will give supplement (4) Essential hypertension: Onset Date: Unknown Code(s): I10 - Essential (primary) hypertension Status: Chronic Assessment and Plan: * Systolic doing better. still off bp meds (5) Afib: Qualifiers: Atrial fibrillation type: unspecified Qualified Code(s): I48.91 - Unspecified atrial fibrillation Code(s): I48.91 - Unspecified atrial fibrillation Status: Chronic Assessment and Plan: * continue rate control strategy * On heparin drip while oral anticoagulation is reinstated. (6) Diabetes mellitus: Onset Date: Unknown Qualifiers: Diabetes mellitus type: type 2 Diabetes mellitus intermodal customer service insulin use: with intermodal customer service use Diabetes mellitus complication status: with kidney complications Diabetes mellitus complication detail: with chronic kidney disease Chronic kidney disease stage: stage 3 (moderate) Chronic kidney disease stage 3 subtype: unspecified whether 3a or 3b Qualified Code(s): E11.22 - Type 2 diabetes mellitus with diabetic chronic kidney disease; N18.30 - Chronic kidney disease, stage 3 unspecified; Z79.4 - termite inspector (current) use of insulin Code(s): E11.9 - Type 2 diabetes mellitus without complications Status: Chronic Assessment and Plan: * follow accuchecks * glycemic control Subjective Date/time seen: 07/27/20 10:15 Interval history: Shaniqua is resting comfortably in bed. Was taking a nap this morning. Exam Narrative: Exam Narrative: General: WD/WN AA female in NAD Heart: normal S1 and S2; no rub Or gallop Lungs: clear to auscultation Abdomen: soft, nontender, nondistended, positive bowel sounds Extremities: No edema. Skin: no rash Neuro: dense left hemiparesis. Objective Data Vital Signs Vital Signs: Vital Signs - 24 hr 07/26/20 10:30 07/26/20 10:45 07/26/20 11:00 Temperature Pulse Rate 60 61 61 Respiratory Rate Blood Pressure 126/54 L 152/54 H 111/49 L Pulse Oximetry 07/26/20 11:15 07/26/20 11:30 07/26/20 11:45 Temperature Pulse Rate 63 60 60 Respiratory Rate Blood Pressure 130/53 L 115/51 L 120/51 L Pulse Oximetry 07/26/20 11:57 07/26/20 12:00 07/26/20 12:13 Temperature 36.6 C 36.4 C L Pulse Rate 63 63 64 Respiratory Rate 17 16 Blood Pressure 120/53 L 117/36 L 122/52 L Pulse Oximetry 97
--- NOTE | 2020-07-27 10:15 | PM.PNNEP ---
Progress Note: A&P Assessment and Plan (1) End stage renal disease: Code(s): N18.6 - End stage renal disease Status: Chronic Assessment and Plan: HD currently. volume status looks okay. Blood pressure is improved. eating better Acid-base balance is good. Av graft has good thrill and bruit (2) Acute cerebrovascular accident (CVA): Code(s): I63.9 - Cerebral infarction, unspecified Status: Acute Assessment and Plan: CT shows right temporoparietal infarct Acutely thrombosed right M2 branch of the superior margin of the sylvian fissure Neurology following PT/OT underway Speech therapy evaluation underway as well because she is having problem swallowing. (3) Hyperkalemia: Code(s): E87.5 - Hyperkalemia Status: Acute Assessment and Plan: potassium low today. will give supplement (4) Essential hypertension: Onset Date: Unknown Code(s): I10 - Essential (primary) hypertension Status: Chronic Assessment and Plan: Systolic doing better. still off bp meds (5) Afib: Qualifiers: Atrial fibrillation type: unspecified Qualified Code(s): I48.91 - Unspecified atrial fibrillation Code(s): I48.91 - Unspecified atrial fibrillation Status: Chronic Assessment and Plan: continue rate control strategy On heparin drip while oral anticoagulation is reinstated. (6) Diabetes mellitus: Onset Date: Unknown Qualifiers: Diabetes mellitus type: type 2 Diabetes mellitus predatory animal exterminator insulin use: with predatory animal exterminator use Diabetes mellitus complication status: with kidney complications Diabetes mellitus complication detail: with chronic kidney disease Chronic kidney disease stage: stage 3 (moderate) Chronic kidney disease stage 3 subtype: unspecified whether 3a or 3b Qualified Code(s): E11.22 - Type 2 diabetes mellitus with diabetic chronic kidney disease; N18.30 - Chronic kidney disease, stage 3 unspecified; Z79.4 - terminal system operator (current) use of insulin Code(s): E11.9 - Type 2 diabetes mellitus without complications Status: Chronic Assessment and Plan: follow accuchecks glycemic control Subjective Date/time seen: 07/27/20 10:15 Interval history: Shaniqua is resting comfortably in bed. Was taking a nap this morning. Exam Narrative: Exam Narrative: General: WD/WN AA female in NAD Heart: normal S1 and S2; no rub Or gallop Lungs: clear to auscultation Abdomen: soft, nontender, nondistended, positive bowel sounds Extremities: No edema. Skin: no rash Neuro: dense left hemiparesis. Objective Data Vital Signs Vital Signs: Vital Signs - 24 hr 07/26/20 10:30 07/26/20 10:45 07/26/20 11:00 Temperature Pulse Rate 60 61 61 Respiratory Rate Blood Pressure 126/54 L 152/54 H 111/49 L Pulse Oximetry 07/26/20 11:15 07/26/20 11:30 07/26/20 11:45 Temperature Pulse Rate 63 60 60 Respiratory Rate Blood Pressure 130/53 L 115/51 L 120/51 L Pulse Oximetry 07/26/20 11:57 07/26/20 12:00 07/26/20 12:13 Temperature 36.6 C 36.4 C L Pulse Rate 63 63 64 Respiratory Rate 17 16 Blood Pressure 120/53 L 117/36 L 122/52 L Pulse Oximetry 97 07/26/20 14:00 07/26/20 16:00 07/26/20 18:00 Temperature 37.2 C Pulse Rate 68 63 61 Respiratory Rate 16 Blood Pressure 110/35 L Pulse Oximetry 97 07/26/20 20:00 07/26/20 22:00 07/26/20 22:25 Temperature 36.2 C L Pulse Rate 62 67 Respiratory Rate 16 21 H Blood Pressure 100/42 L Pulse Oximetry 97 07/26/20 23:58 07/27/20 00:00 07/27/20 02:00 Temperature 36.2 C L Pulse Rate 61 62 69 Respiratory Rate 16 Blood Pressure 131/42 L Pulse Oximetry 100 07/27/20 04:00 07/27/20 06:00 07/27/20 07:03 Temperature 36.3 C L 36.2 C L Pulse Rate 67 66 85 Respiratory Rate 18 16 Blood Pressure 128/40 L 113/38 L Pulse Oximetry 96 98 07/27/20
[2020-07-27 11:52] LABS: Glucose Point of Care 108 mg/dl (65-105)
[2020-07-27] MEDS: POTASSIUM CHLORIDE 20 MEQ TABLET PO (12:54)
--- NOTE | 2020-07-27 14:32 | PC.NURSE ---
This patient, Shaniqua Oakley, was received from [ imu] on 07/27/20 at 1432. Patient/family oriented to unit policies and routines
--- NOTE | 2020-07-27 14:50 | PC.NURSE ---
This patient, Shaniqua Oakley, was transferred to [[id number] ] on 07/27/20 at 1425. Personal belongings sent with patient. Report given to [TARSHA Silva @ [phone] ]. Appropriate documentation sent with patient.
--- NOTE | 2020-07-27 15:28 | P.PNIM_ITS ---
Progress Note: A&P Assessment and Plan (1) Acute cerebrovascular accident (CVA): Code(s): I63.9 - Cerebral infarction, unspecified Status: Acute Assessment and Plan: * Right frontoparietal stroke due to thrombosis of right M2 branch * Given history of paroxysmal atrial fibrillation this certainly could be cardioembolic * PT/OT * Much improvement with theraphy * Pt tolerates oral pills and purred diet (2) Paroxysmal atrial fibrillation: Code(s): I48.0 - Paroxysmal atrial fibrillation Status: Acute Assessment and Plan: * Amiodarone po to continue * cardiology consulted * Eliquis for anticoagulation (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 Pt had dialysis yesterday. (5) Hyperkalemia: Code(s): E87.5 - Hyperkalemia Status: Acute Assessment and Plan: * Resolved * Hold losartan (6) Essential hypertension: Onset Date: Unknown Code(s): I10 - Essential (primary) hypertension Status: Chronic Assessment and Plan: * Blood pressure is running a bit low for acute stroke. Will hold losartan. (7) Diastolic congestive heart failure: Qualifiers: Heart failure chronicity: unspecified Qualified Code(s): I50.30 - Unspecified diastolic (congestive) heart failure Code(s): I50.30 - Unspecified diastolic (congestive) heart failure Status: Chronic Assessment and Plan: * Clinically stable (8) Insulin dependent type 2 diabetes mellitus: Code(s): E11.9 - Type 2 diabetes mellitus without complications; Z79.4 - USP (current) use of insulin Status: Chronic Assessment and Plan: * Basal and sliding scale insulin * [place] home Novolog 70/30 due to hospitalization with dietary restrictions (9) Transaminitis: Code(s): R74.01 - Elevation of levels of liver transaminase levels Status: Acute Assessment and Plan: * Suspect DICKSON (10) Elevated lactic acid level: Code(s): R79.89 - Other specified abnormal findings of blood chemistry Status: Resolved Assessment and Plan: * Improving (11) Elevated troponin: Code(s): R77.8 - Other specified abnormalities of plasma proteins Status: Resolved Assessment and Plan: * Due to end-stage renal disease Or AF Subjective Date/time seen: 07/27/20 15:28 Interval history: 70-year-old morbidly obese female with atrial fibrillation, chronic kidney disease now dialysis, hypertension, and sleep apnea who presented to the emergency department earlier today via EMS from home for evaluation of stroke-like symptoms. Unfortunate lady with a large dense stroke effecting her left side arm and leg and her speech. Pt tolerating pudding thick liquids and pureed diet. Slow progress due to dense stroke pt is motivated to move. Pt will benefit from rehab when medical stable. Review of Systems Review of Systems: All systems reviewed & are unremarkable except as noted in HPI and below Exam Narrative: Exam Narrative:
--- NOTE | 2020-07-27 15:28 | PM.IMPN ---
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 Pt had dialysis yesterday. (5) Hyperkalemia: Code(s): E87.5 - Hyperkalemia Status: Acute Assessment and Plan: Resolved Hold losartan (6) Essential hypertension: Onset Date: Unknown Code(s): I10 - Essential (primary) hypertension Status: Chronic Assessment and Plan: Blood pressure is running a bit low for acute stroke. Will hold losartan. (7) Diastolic congestive heart failure: Qualifiers: Heart failure chronicity: unspecified Qualified Code(s): I50.30 - Unspecified diastolic (congestive) heart failure Code(s): I50.30 - Unspecified diastolic (congestive) heart failure Status: Chronic Assessment and Plan: Clinically stable (8) Insulin dependent type 2 diabetes mellitus: Code(s): E11.9 - Type 2 diabetes mellitus without complications; Z79.4 - skilled nursing (current) use of insulin Status: Chronic Assessment and Plan: Basal and sliding scale insulin [place] home Novolog 70/30 due to hospitalization with dietary restrictions (9) Transaminitis: Code(s): R74.01 - Elevation of levels of liver transaminase levels Status: Acute Assessment and Plan: Suspect DICKSON (10) Elevated lactic acid level: Code(s): R79.89 - Other specified abnormal findings of blood chemistry Status: Resolved Assessment and Plan: Improving (11) Elevated troponin: Code(s): R77.8 - Other specified abnormalities of plasma proteins Status: Resolved Assessment and Plan: Due to end-stage renal disease Or AF Subjective Date/time seen: 07/27/20 15:28 Interval history: 70-year-old morbidly obese female with atrial fibrillation, chronic kidney disease now dialysis, hypertension, and sleep apnea who presented to the emergency department earlier today via EMS from home for evaluation of stroke-like symptoms. Unfortunate lady with a large dense stroke effecting her left side arm and leg and her speech. Pt tolerating pudding thick liquids and pureed diet. Slow progress due to dense stroke pt is motivated to move. Pt will benefit from rehab when medical stable. Review of Systems Review of Systems: All systems reviewed & are unremarkable except as noted in HPI and below Exam Narrative: Exam Narrative: GENERALLY: MORBIDLY OBESE HEENT: PERRLA NECK: No JVD, adenopathy, or thyromegaly CHEST: Clear to auscultation. Normal effort. HEART REGULAR Rhythm ABDOMEN: BS+, soft, nontender, no mass, no bruits EXTREMITIES: No cyanosis, edema, or clubbing NEUROLOGIC: CN WITH MODERATE LEFT FACIAL DROOP APHASIC MUSCULOSKELETAL: L Arm 4/5 and L Leg 3/5 R leg 3/5 PSYCH: More alert today. Objective Data Vital Signs Vital Signs: Vital Signs - 24 hr 07/26/20
[2020-07-27 15:42] LABS: Triglycerides 124 mg/dL (<150)
[2020-07-27 17:06] LABS: Glucose Point of Care 95 mg/dl (65-105)
[2020-07-27] MEDS: APIXABAN 2.5 MG TABLET PO (22:20)
[2020-07-27 23:11] LABS: Glucose Point of Care 73 mg/dl (65-105)
[2020-07-28] VITALS (12 sets, daily range): BP systolic 130–145; BP diastolic 56–79; PULSE 56–112; RESP 12–18; TEMP 36.1–36.4; O2SAT 94–97
[2020-07-28] MEDS: CENTRAL LINE FLUSH 10 ML IV PUSH ×3 (06:17→22:45)
[2020-07-28 06:43] LABS: Basophils Percent Auto 0.2 % (0.2-1.2); Eosinophils Absolute Auto 0.1 K/mm3 (0-0.3); Eosinophils Percent Auto 1.3 % (0-4.4); Hematocrit 35.1 % (37.0-47.0); Hemoglobin 11.3 g/dL (12.0-15.0); Immature Granulocyte Absolute 0.09 K/mm3 (0.00-0.031); Immature Platelet Fraction Pct 5.1 % (0.9-11.2); Lymphocytes Absolute Auto 1.95 K/mm3 (0.9-3.2); Lymphocytes Percent Auto 20.7 % (18.3-44.2); Mean Corpuscular HGB Conc 32.2 g/dl (32-36); Mean Corpuscular Hemoglobin 26.9 pg (26-34); Mean Corpuscular Volume 83.6 fl (80-100); Mean Platelet Volume 10.1 fl (7.4-10.4); Monocytes Absolute Auto 1.4 K/mm3 (0.1-0.6); Monocytes Percent Auto 14.3 % (2.6-8.5); Neutrophils Absolute Auto 5.9 K/mm3 (1.3-6.7); Neutrophils Percent Auto 62.5 % (45.5-73.1); Platelet Count Result 156 k/mm3 (150-375); White Blood Count 9.4 K/mm3 (4.5-10.0)
[2020-07-28 06:50] LABS: Alanine Aminotransferase 12 U/L (4-35); Albumin Level 2.8 g/dL (3.5-5.1); Alkaline Phosphatase 78 U/L (38-126); Anion Gap 3 mmol/L (8-16); Aspartate Amino Transferase 28 U/L (14-36); Bilirubin,Total 0.5 mg/dL (0.2-1.3); Blood Urea Nitrogen 20 mg/dL (7-17); Calcium 10.3 mg/dL (8.4-10.2); Carbon Dioxide 36 mmol/L (22-30); Chloride 99 mmol/L (98-107); Estimated CRCL calculation 11 ml/min; Estimated Glomerular Filt Rate 10; Glucose 97 mg/dL (65-105); Magnesium 1.8 mg/dL (1.6-2.3); Potassium 3.5 mmol/L (3.4-5.0); Sodium 138 mmol/L (137-145)
[2020-07-28 06:56] LABS: INR 1.1; Prothrombin Time 14.6 Seconds (11.1-14.7)
[2020-07-28 06:57] LABS: Transferrin 94 mg/dL (206-381)
[2020-07-28 07:54] LABS: Glucose Point of Care 164 mg/dl (65-105)
--- NOTE | 2020-07-28 08:48 | PM.PNCARD ---
Progress Note: A&P Assessment and Plan (1) Tachycardia-bradycardia syndrome: Code(s): I49.5 - Sick sinus syndrome Status: Acute Assessment and Plan: Paroxysmal AFib with RVR now in normal sinus rhythm. She remains on PO amiodarone and is not requiring beta blockers at this time. Difficult management. Patient is not a great candidate for permanent pacemaker implantation, will try to avoid. Patient is in sinus rhythm without high-grade AV block or prolonged pauses thus far. (2) Paroxysmal atrial fibrillation: Code(s): I48.0 - Paroxysmal atrial fibrillation Status: Acute Assessment and Plan: Remained in sinus rhythm over the weekend even following hemodialysis treatment which seemed to trigger Afib with a rapid ventricular response in the past. Now on PO amiodarine and has been transitioned from heparin to Apixaban. Will not make any changes to her medications today. Resumed telemetry - it appears it was not continued on transfer from [facility]. Patient prone to reverting to Afib with RVR following hemodialysis. (3) Hypotension: Code(s): I95.9 - Hypotension, unspecified Status: Acute Assessment and Plan: She is normotensive currently and it appears she has not been hypotensive over the past couple of days. Continue to monitor. (4) Acute cerebrovascular accident (CVA): Code(s): I63.9 - Cerebral infarction, unspecified Status: Acute Assessment and Plan: Very unfortunate complication. Right-sided stroke, probably cardioembolic a she had been off her Eliquis for a week for her graft surgery. Apixaban has been resumed. (5) Altered mental status: Code(s): R41.82 - Altered mental status, unspecified Status: Acute Assessment and Plan: (6) Diastolic congestive heart failure: Qualifiers: Heart failure chronicity: unspecified Qualified Code(s): I50.30 - Unspecified diastolic (congestive) heart failure Code(s): I50.30 - Unspecified diastolic (congestive) heart failure Status: Chronic Assessment and Plan: Chronic diastolic CHF, stable. Volume management with hemodialysis for end-stage renal disease. CPAP as able to tolerate. (7) End-stage renal disease on hemodialysis: Code(s): N18.6 - End stage renal disease; Z99.2 - Dependence on renal dialysis Status: Acute Assessment and Plan: Management per renal team. Avoid excessive hypotension as this will trigger A.Fib with RVR. (8) terminal carman current use of amiodarone: Code(s): Z79.899 - Other intermediate frame tender (current) drug therapy Status: Acute Assessment and Plan: Thyroid issues not related amiodarone as this predated initiation. Nonetheless, will need to monitor very closely as amiodarone may complicate management. Defer to primary service. Alternatives to Amiodarone limited given circumstances, cardiac arrest while on Sotalol. (9) Hyperthyroidism: Code(s): E05.90 - Thyrotoxicosis, unspecified without thyrotoxic crisis or storm Status: Acute Assessment and Plan: Defer to primary service. Patient had a very low TSH in March 2020 prior to initiating amiodarone. 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 Methimazole. Subjective Date/time seen: 07/28/20 08:48 Interval history: Patient converted to sinus rhythm but has been bradycardic heart rate in the 40s, relatively hypotensive systolic blood pressure 80s to 100 this AM. Patient complains of soreness in her back side denies shortness of breath or chest pain. Sitting in chair time of evaluation. A
[2020-07-28] MEDS: APIXABAN 2.5 MG TABLET PO ×2 (08:51→20:09)
[2020-07-28] MEDS: BRIMONIDINE TARTRATE 0.2% OP SOLN 5 ML BTL 1 DROP EACH EYE ×2 (08:51→20:13)
[2020-07-28] MEDS: AMIODARONE HCL 200 MG TABLET PO ×2 (08:51→17:24)
[2020-07-28] MEDS: TIMOLOL MALEATE 0.5% OP SOLN 5 ML BOTTLE 1 DROP EACH EYE ×2 (08:51→20:13)
--- NOTE | 2020-07-28 09:44 | PCPTNOTE ---
Attempted to see patient for PT 07/28/2020, however patient was unable to be seen at this time due to wound dressing. Will check back at a later time.
--- NOTE | 2020-07-28 11:12 | PCNFU ---
Addendum entered by Alyson Ceballos RD, LDN 07/29/20 07:48: Correction: Patient nutrition is Pureed, Level 4 with Extremely Thick liquids, Level 4. Original Note: Nutrition Follow-Up Complete: Inadequate oral intake related to altered mental status as evidenced by NPO diet, nutrition support order. Goal: Patient to meet estimated nutritional needs. Progressing towards goal. We will continue current goal. Pt current nutrition is Pureed, Level 4 with Moderately Thick liquids, Level 3. Last recorded weight is 89.9 kg, down from 99.9 kg from admit. Bowel Motility:+BM 07/24 Labs Reviewed:Alb 2.8,BUN 20,Cr 5.0,GFR 10 Meds Noted:Pacerone,Lopressor,Eliquis. Additional Notes: Patient seen today for nutrition follow up. MBS ordered on 07/27 recommending Pureed,Level 4 diet with Moderately thick, Level 3 liquids. Breakfast today: eggs and 1/2 cup of OJ. Discussed diet supplements with patient today. Patient would like to try Nepro shakes BID providing an additional 425 kcals and 19 gms protein. Wounds: Left coccyx ulcer. Monitoring: Will monitor every 3 days.
[2020-07-28 12:01] LABS: Glucose Point of Care 119 mg/dl (65-105)
[2020-07-28] MEDS: SILVERGEL (ELTA) 45 ML 1 APPLIC TOPICAL (12:34)
--- NOTE | 2020-07-28 12:55 | P.PNIM_ITS ---
Progress Note: A&P Assessment and Plan (1) Acute cerebrovascular accident (CVA): Code(s): I63.9 - Cerebral infarction, unspecified Status: Acute Assessment and Plan: * Right frontoparietal stroke due to thrombosis of right M2 branch * Given history of paroxysmal atrial fibrillation this certainly could be cardioembolic * PT/OT * Much improvement with theraphy * Pt tolerates oral pills and purred diet * DC back to [facility] in 1-2 days time (2) Paroxysmal atrial fibrillation: Code(s): I48.0 - Paroxysmal atrial fibrillation Status: Acute Assessment and Plan: * Amiodarone po to continue * cardiology consulted * Eliquis for anticoagulation * On telemetry (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 Pt had dialysis yesterday. (5) Hyperkalemia: Code(s): E87.5 - Hyperkalemia Status: Acute Assessment and Plan: * Resolved * Hold losartan (6) Essential hypertension: Onset Date: Unknown Code(s): I10 - Essential (primary) hypertension Status: Chronic Assessment and Plan: * Blood pressure is running a bit low for acute stroke. Will hold losartan. (7) Diastolic congestive heart failure: Qualifiers: Heart failure chronicity: unspecified Qualified Code(s): I50.30 - Unspecified diastolic (congestive) heart failure Code(s): I50.30 - Unspecified diastolic (congestive) heart failure Status: Chronic Assessment and Plan: * Clinically stable (8) Insulin dependent type 2 diabetes mellitus: Code(s): E11.9 - Type 2 diabetes mellitus without complications; Z79.4 - prison (current) use of insulin Status: Chronic Assessment and Plan: * Basal and sliding scale insulin * Hole home Novolog 70/30 due to hospitalization with dietary restrictions (9) Transaminitis: Code(s): R74.01 - Elevation of levels of liver transaminase levels Status: Acute Assessment and Plan: * Suspect DICKSON (10) Elevated lactic acid level: Code(s): R79.89 - Other specified abnormal findings of blood chemistry Status: Resolved Assessment and Plan: * Improving (11) Elevated troponin: Code(s): R77.8 - Other specified abnormalities of plasma proteins Status: Resolved Assessment and Plan: * Due to end-stage renal disease Or AF Subjective Date/time seen: 07/28/20 12:55 Interval history: 70-year-old morbidly obese female with atrial fibrillation, chronic kidney disease now dialysis, hypertension, and sleep apnea who presented to the emergency department earlier today via EMS from home for evaluation of stroke-like symptoms. Unfortunate lady with a large dense stroke effecting her left side arm and leg and her speech. Pt tolerating pudding thick liquids and pureed diet. Slow progress due to dense stroke pt is motivated to move. Pt will discharge back to [facility] when medical stable. Review of Systems Review of Systems: All systems reviewed & are unremarkable except as noted in H
--- NOTE | 2020-07-28 12:55 | PM.IMPN ---
Progress Note: A&P Assessment and Plan (1) Acute cerebrovascular accident (CVA): Code(s): I63.9 - Cerebral infarction, unspecified Status: Acute Assessment and Plan: Right frontoparietal stroke due to thrombosis of right M2 branch Given history of paroxysmal atrial fibrillation this certainly could be cardioembolic PT/OT Much improvement with theraphy Pt tolerates oral pills and purred diet DC back to [facility] in 1-2 days time (2) Paroxysmal atrial fibrillation: Code(s): I48.0 - Paroxysmal atrial fibrillation Status: Acute Assessment and Plan: Amiodarone po to continue cardiology consulted Kori for anticoagulation On telemetry (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 Pt had dialysis yesterday. (5) Hyperkalemia: Code(s): E87.5 - Hyperkalemia Status: Acute Assessment and Plan: Resolved Hold losartan (6) Essential hypertension: Onset Date: Unknown Code(s): I10 - Essential (primary) hypertension Status: Chronic Assessment and Plan: Blood pressure is running a bit low for acute stroke. Will hold losartan. (7) Diastolic congestive heart failure: Qualifiers: Heart failure chronicity: unspecified Qualified Code(s): I50.30 - Unspecified diastolic (congestive) heart failure Code(s): I50.30 - Unspecified diastolic (congestive) heart failure Status: Chronic Assessment and Plan: Clinically stable (8) Insulin dependent type 2 diabetes mellitus: Code(s): E11.9 - Type 2 diabetes mellitus without complications; Z79.4 - rn long term care (current) use of insulin Status: Chronic Assessment and Plan: Basal and sliding scale insulin Hole home Novolog 70/30 due to hospitalization with dietary restrictions (9) Transaminitis: Code(s): R74.01 - Elevation of levels of liver transaminase levels Status: Acute Assessment and Plan: Suspect DICKSON (10) Elevated lactic acid level: Code(s): R79.89 - Other specified abnormal findings of blood chemistry Status: Resolved Assessment and Plan: Improving (11) Elevated troponin: Code(s): R77.8 - Other specified abnormalities of plasma proteins Status: Resolved Assessment and Plan: Due to end-stage renal disease Or AF Subjective Date/time seen: 07/28/20 12:55 Interval history: 70-year-old morbidly obese female with atrial fibrillation, chronic kidney disease now dialysis, hypertension, and sleep apnea who presented to the emergency department earlier today via EMS from home for evaluation of stroke-like symptoms. Unfortunate lady with a large dense stroke effecting her left side arm and leg and her speech. Pt tolerating pudding thick liquids and pureed diet. Slow progress due to dense stroke pt is motivated to move. Pt will discharge back to [facility] when medical stable. Review of Systems Review of Systems: All systems reviewed & are unremarkable except as noted in HPI and below Exam Narrative: Exam Narrative: GENERALLY: MORBIDLY OBESE, more alert and awake good conversation HEENT: PERRLA NECK: No JVD, adenopathy, or thyromegaly CHEST: Clear to auscultation. Normal effort. HEART REGULAR Rhythm ABDOMEN: BS+, soft, nontender, no mass, no bruits EXTREMITIES: No cyanosis, edema, or clubbing NEUROLOGIC: CN WITH MODERATE LEFT FACIAL DROOP APHASIC MUSCULOSKELETAL: L Arm 4/5 and L Leg 3/5 R le
--- NOTE | 2020-07-28 14:45 | PM.PNNEP ---
Progress Note: A&P Assessment and Plan (1) End stage renal disease: Code(s): N18.6 - End stage renal disease Status: Chronic Assessment and Plan: HD tomorrow and contine T/T/S schedule follow electrolytes, volume status, and clearance (2) Acute cerebrovascular accident (CVA): Code(s): I63.9 - Cerebral infarction, unspecified Status: Acute Assessment and Plan: CT shows right temporoparietal infarct - acutely thrombosed right M2 branch of the superior margin of the sylvian fissure Neurology following continue PT/OT/ST as tolerated (3) Essential hypertension: Onset Date: Unknown Code(s): I10 - Essential (primary) hypertension Status: Chronic Assessment and Plan: reasonable control BP medications with parameters follow trend of hemodynamics (4) Afib: Qualifiers: Atrial fibrillation type: unspecified Qualified Code(s): I48.91 - Unspecified atrial fibrillation Code(s): I48.91 - Unspecified atrial fibrillation Status: Chronic Assessment and Plan: continue rate control strategy on anticoagulation (5) Diabetes mellitus: Onset Date: Unknown Qualifiers: Chronic kidney disease stage: stage 3 (moderate) Chronic kidney disease stage 3 subtype: unspecified whether 3a or 3b Diabetes mellitus complication detail: with chronic kidney disease Diabetes mellitus complication status: with kidney complications Diabetes mellitus 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 Subjective Date/time seen: 07/28/20 14:45 Chart reviewed since last seen -- continues to work with therapy as tolerated; still with weakness and some issues with aphasia but motivated to ambulate when she can; no apparent distress voiced at this time. Exam Narrative: Exam Narrative: General: WD/WN AA female in NAD Heart: normal S1 and S2; no rub Or gallop Lungs: clear to auscultation Abdomen: soft, nontender, nondistended, positive bowel sounds Extremities: No edema. Skin: no rash or nodules Neuro: left hemiparesis noted. Objective Data Vital Signs Vital Signs: Vital Signs Temp Pulse Resp BP Pulse Ox 07/28/20 15:30 36.4 C 68 18 132/57 L 97 07/28/20 12:00 62 07/28/20 08:51 71 07/28/20 08:00 66 07/28/20 06:00 36.4 C 64 18 130/56 L 96 07/28/20 04:00 56 L 07/28/20 00:00 62 07/27/20 22:48 36.7 C 62 19 127/48 L 93 07/27/20 20:00 61 07/27/20 17:29 60 Intake/Output Intake/Output: Intake & Output 07/25/20 07/26/20 07/27/20 07/28/20 23:59 23:59 23:59 23:59 Intake Total 1075 1370 113 458 Output Total 0 0 0 0 Balance 1075 1370 113 458 Meds/Results Medications: Active Medications Generic Name Dose Route Start Last Admin Trade Name Freq PRN Reason Stop Dose Admin Albuterol 2 puff 07/19/20 23:24 Albuterol Sulfate (*Sp) Aerosol 1 Puff INHALATION QID PRN Shortness Of Breath Amiodarone HCl 400 mg 07/22/20 17:00 07/22/20 17:39 Amiodarone Hcl 200 Mg Tablet PO Not Given BID JANKI Amiodarone HCl 200 mg 07/25/20 18:00 07/28/20 08:51 Amiodarone Hcl 200 Mg Tablet PO 200 mg BID JANKI Administration Apixaban 2.5 mg 07/27/20 21:00 07/28/20 08:51 Apixaban 2.5 Mg Tablet PO 2.5 mg Q12HR JANKI Administration Aspirin 81 mg 07/22/20 09:00 07/22/20 15:14 Aspirin 81 Mg Enteric Tablet PO Not Given QAM JANKI Brimonidine Tartrate 1 drop 07/20/20 09:00 07/28/20 08:51 Brimonidine Tartrate 0.2% Op Soln 5
[2020-07-28 17:17] LABS: Glucose Point of Care 189 mg/dl (65-105)
[2020-07-28] MEDS: METOPROLOL TARTRATE 12.5 MG TABLET PO (18:53)
[2020-07-28] MEDS: INSULIN GLARGINE (*BKC) 100 UNITS/ML 30 UNITS SUB-Q (20:14)
[2020-07-28 21:11] LABS: Glucose Point of Care 165 mg/dl (65-105)
[2020-07-29] VITALS (26 sets, daily range): BP systolic 83–149; BP diastolic 25–55; PULSE 58–115; RESP 12–18; TEMP 36.2–37; O2SAT 96; BMI 10.0
[2020-07-29 05:10] LABS: Hematocrit 38.3 % (37.0-47.0); Hemoglobin 12.8 g/dL (12.0-15.0); Mean Corpuscular HGB Conc 33.4 g/dl (32-36); Mean Corpuscular Hemoglobin 27.6 pg (26-34); Mean Corpuscular Volume 82.7 fl (80-100); Mean Platelet Volume 10.7 fl (7.4-10.4); Platelet Count Result 158 k/mm3 (150-375); Red Blood Count 4.63 M/mm3 (4.2-5.4); White Blood Count 11.6 K/mm3 (4.5-10.0)
[2020-07-29 05:27] LABS: Anion Gap 9 mmol/L (8-16); Blood Urea Nitrogen 28 mg/dL (7-17); Calcium 10.5 mg/dL (8.4-10.2); Carbon Dioxide 30 mmol/L (22-30); Chloride 99 mmol/L (98-107); Estimated CRCL calculation 9 ml/min; Estimated Glomerular Filt Rate 8; Glucose 156 mg/dL (65-105); Phosphorus 4.6 mg/dL (2.5-4.5); Potassium 3.7 mmol/L (3.4-5.0); Sodium 138 mmol/L (137-145)
[2020-07-29] MEDS: CENTRAL LINE FLUSH 10 ML IV PUSH ×3 (05:46→20:30)
[2020-07-29 07:41] LABS: Glucose Point of Care 140 mg/dl (65-105)
[2020-07-29] MEDS: APIXABAN 2.5 MG TABLET PO ×2 (08:44→20:29)
[2020-07-29] MEDS: AMIODARONE HCL 200 MG TABLET PO ×2 (08:44→18:59)
[2020-07-29] MEDS: SILVERGEL (ELTA) 45 ML 1 APPLIC TOPICAL (08:45)
[2020-07-29] MEDS: BRIMONIDINE TARTRATE 0.2% OP SOLN 5 ML BTL 1 DROP EACH EYE ×2 (08:45→20:29)
[2020-07-29] MEDS: TIMOLOL MALEATE 0.5% OP SOLN 5 ML BOTTLE 1 DROP EACH EYE ×2 (08:45→20:29)
--- NOTE | 2020-07-29 11:12 | PM.PNCARD ---
Progress Note: A&P Assessment and Plan (1) Tachycardia-bradycardia syndrome: Code(s): I49.5 - Sick sinus syndrome Status: Acute Assessment and Plan: Paroxysmal AFib with RVR now in normal sinus rhythm. She remains on PO amiodarone and is not requiring beta blockers at this time. Difficult management. Patient is not a great candidate for permanent pacemaker implantation, will try to avoid. Patient is in sinus rhythm without high-grade AV block or prolonged pauses thus far. (2) Paroxysmal atrial fibrillation: Code(s): I48.0 - Paroxysmal atrial fibrillation Status: Acute Assessment and Plan: Remained in sinus rhythm over the weekend even following hemodialysis treatment which seemed to trigger Afib with a rapid ventricular response in the past. Now on PO amiodarine and has been transitioned from heparin to Apixaban. Telemetry demonstrated that she reverted back to atrial fibrillation last night with rapid ventricular response. Rate in the 130s. At this moment she is in normal sinus rhythm. She is scheduled to have hemodialysis treatment today. In the past this has triggered her atrial fibrillation. She may require rate control with either metoprolol or increased dose of amiodarone. (3) Hypotension: Code(s): I95.9 - Hypotension, unspecified Status: Acute Assessment and Plan: She is normotensive currently and it appears she has not been hypotensive over the past couple of days. Continue to monitor. (4) Acute cerebrovascular accident (CVA): Code(s): I63.9 - Cerebral infarction, unspecified Status: Acute Assessment and Plan: Very unfortunate complication. Right-sided stroke, probably cardioembolic a she had been off her Eliquis for a week for her graft surgery. Apixaban has been resumed. (5) Altered mental status: Code(s): R41.82 - Altered mental status, unspecified Status: Resolved Assessment and Plan: (6) Diastolic congestive heart failure: Qualifiers: Heart failure chronicity: unspecified Qualified Code(s): I50.30 - Unspecified diastolic (congestive) heart failure Code(s): I50.30 - Unspecified diastolic (congestive) heart failure Status: Chronic Assessment and Plan: Chronic diastolic CHF, stable. Volume management with hemodialysis for end-stage renal disease. CPAP as able to tolerate. (7) End-stage renal disease on hemodialysis: Code(s): N18.6 - End stage renal disease; Z99.2 - Dependence on renal dialysis Status: Acute Assessment and Plan: Management per renal team. Avoid excessive hypotension as this will trigger A.Fib with RVR. (8) emt intermediate current use of amiodarone: Code(s): Z79.899 - Other assistant terminal manager (current) drug therapy Status: Acute Assessment and Plan: Thyroid issues not related amiodarone as this predated initiation. Nonetheless, will need to monitor very closely as amiodarone may complicate management. Defer to primary service. Alternatives to Amiodarone limited given circumstances, cardiac arrest while on Sotalol. (9) Hyperthyroidism: Code(s): E05.90 - Thyrotoxicosis, unspecified without thyrotoxic crisis or storm Status: Acute Assessment and Plan: Defer to primary service. Patient had a very low TSH in March 2020 prior to initiating amiodarone. 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 Methimazole. Subjective Date/time seen: 07/29/20 11:12 Interval history: Patient converted to sinus rhythm but has been bradycardic heart rate in the 40s, relatively hypo
--- NOTE | 2020-07-29 11:29 | PM.PNNEP ---
Progress Note: A&P Assessment and Plan (1) End stage renal disease: Code(s): N18.6 - End stage renal disease Status: Chronic Assessment and Plan: HD today and contine T/T/S schedule follow electrolytes, volume status, and clearance (2) Acute cerebrovascular accident (CVA): Code(s): I63.9 - Cerebral infarction, unspecified Status: Acute Assessment and Plan: CT shows right temporoparietal infarct - acutely thrombosed right M2 branch of the superior margin of the sylvian fissure Neurology following continue PT/OT/ST as tolerated (3) Essential hypertension: Onset Date: Unknown Code(s): I10 - Essential (primary) hypertension Status: Chronic Assessment and Plan: reasonable control BP medications with parameters follow trend of hemodynamics (4) Afib: Qualifiers: Atrial fibrillation type: unspecified Qualified Code(s): I48.91 - Unspecified atrial fibrillation Code(s): I48.91 - Unspecified atrial fibrillation Status: Chronic Assessment and Plan: continue rate control strategy on anticoagulation (5) Diabetes mellitus: Onset Date: Unknown Qualifiers: Chronic kidney disease stage: stage 3 (moderate) Chronic kidney disease stage 3 subtype: unspecified whether 3a or 3b Diabetes mellitus complication detail: with chronic kidney disease Diabetes mellitus complication status: with kidney complications Diabetes mellitus watermelon inspector insulin use: with watermelon inspector use Diabetes mellitus type: type 2 Qualified Code(s): E11.22 - Type 2 diabetes mellitus with diabetic chronic kidney disease; N18.30 - Chronic kidney disease, stage 3 unspecified; Z79.4 - tank terminal gauger (current) use of insulin Code(s): E11.9 - Type 2 diabetes mellitus without complications Status: Chronic Assessment and Plan: follow accuchecks glycemic control Will continue to follow. Subjective Date/time seen: 07/29/20 9:29 No apparent distress voiced at this time; some pain in her back secondary to coccyx wound/skin breakdown; no acute issues/events overnight or earlier this AM; due for dialysis today. Exam Narrative: Exam Narrative: General: WD/WN AA female in NAD Heart: normal S1 and S2; no rub Lungs: clear to auscultation Abdomen: soft, nontender, nondistended, positive bowel sounds Extremities: No edema Skin: no rash or nodules Neuro: left hemiparesis noted Objective Data Vital Signs Vital Signs: Vital Signs Temp Pulse Resp BP Pulse Ox 07/29/20 08:44 102 H 07/29/20 08:00 106 H 07/29/20 04:00 102 H 07/29/20 00:00 104 H 07/28/20 20:38 36.1 C L 112 H 12 145/79 H 94 07/28/20 20:00 110 H 18 97 07/28/20 18:53 105 H 07/28/20 17:24 61 07/28/20 16:00 61 07/28/20 15:30 36.4 C 68 18 132/57 L 97 07/28/20 12:00 62 Intake/Output Intake/Output: Intake & Output 07/26/20 07/27/20 07/28/20 07/29/20 23:59 23:59 23:59 23:59 Intake Total 1370 113 458 100 Output Total 0 0 0 Balance 1370 113 458 100 Meds/Results Medications: Active Medications Generic Name Dose Route Start Last Admin Trade Name Freq PRN Reason Stop Dose Admin Acetaminophen 650 mg 07/29/20 11:15 Acetaminophen 325 Mg Tablet PO Q6H PRN Mild Pain (1-3) or Fever Albuterol 2 puff 07/19/20 23:24 Albuterol Sulfate (*Sp) Aerosol 1 Puff INHALATION QID PRN Shortness Of Breath Amiodarone HCl 400 mg 07/22/20 17:00 07/22/20 17:39 Amiodarone Hcl 200 Mg Tablet PO Not Given BID JANKI Amiodarone HCl 200 mg 07/25/20 18:00 07/29/20 08:44 Amiodarone Hcl 200 Mg Tablet PO 200 mg BID JANKI Administration Apixaban 2.5 mg 07/27/20 21:00 07/29/20 08:44 Apixaban 2.5 Mg Tablet PO 2.5 mg Q12HR JANKI Administration Aspirin 81 mg 07/22/20 09:00 07/22/20 15:14 Aspirin 81 Mg Enteric Tablet PO Not Given QAM S
--- NOTE | 2020-07-29 11:29 | PCNFU ---
Nutrition Follow-Up Complete: Inadequate oral intake related to altered mental status as evidenced by NPO diet, nutrition support order. Goal: Patient to meet estimated nutritional needs. Progressing towards goal. We will continue current goal. Pt current nutrition is Pureed, Level 4 with Pudding thick liquids, Level 4. Last recorded weight is 100 kg,up from 99.9 kg on admit. Bowel Motility:+BM 07/24 Labs Reviewed:Cr 6.3,GFR 8,BUN 28 Meds Noted:Lantus,Eliquis,Lopressor,Pacerone. Additional Notes: Patient seen today for nutrition follow. She ate 25% of breakfast. She had Nepro shake at beside. PPN has been discontinued. PO intake was encouraged. Agree with diet orders. Monitoring: Follow up every 3 days.
[2020-07-29] MEDS: ACETAMINOPHEN 325 MG TABLET 650 MG PO (11:36)
[2020-07-29 12:10] LABS: Glucose Point of Care 220 mg/dl (65-105)
[2020-07-29] MEDS: INSULIN ASPART (*BKC) 100 UNITS/ML SUB-Q (12:10)
[2020-07-29] MEDS: SODIUM CHLORIDE 0.9% IV 1,000 ML 100 ML IV CONT (14:30)
--- NOTE | 2020-07-29 15:08 | PC.NURSE ---
To dialysis room via bed.
--- NOTE | 2020-07-29 16:06 | P.PNIM_ITS ---
Progress Note: A&P Assessment and Plan (1) Acute cerebrovascular accident (CVA): Code(s): I63.9 - Cerebral infarction, unspecified Status: Acute Assessment and Plan: * Right frontoparietal stroke due to thrombosis of right M2 branch * Given history of paroxysmal atrial fibrillation this certainly could be cardioembolic * PT/OT * Much improvement with theraphy * Pt tolerates oral pills and purred diet * DC back to [facility] in 1[facility]2 days time 07/29/20 16:06 Right frontoparietal stroke due to thrombosis of right M2 branch patient has been participating in physical therapy and able to move will continue PT OT, patient with sick sinus syndrome seen by cardiology patient is not appear candidate for permanent pacemaker however she did have atrial fibrillation with RVR currently in sinus rhythm on p.o. amiodarone and not requiring any beta-usman, patient was seen dialysis is doing much better denies any complaint of chest pain shortness of breath palpitation fever or chills, will continue to monitor discussed with interior plant caretaker further planning. 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 Pt had dialysis yesterday. (5) Hyperkalemia: Code(s): E87.5 - Hyperkalemia Status: Acute Assessment and Plan: * Resolved * Hold losartan (6) Essential hypertension: Onset Date: Unknown Code(s): I10 - Essential (primary) hypertension Status: Chronic Assessment and Plan: * Blood pressure is running a bit low for acute stroke. Will hold losartan. (7) Diastolic congestive heart failure: Qualifiers: Heart failure chronicity: unspecified Qualified Code(s): I50.30 - Unspecified diastolic (congestive) heart failure Code(s): I50.30 - Unspecified diastolic (congestive) heart failure Status: Chronic Assessment and Plan: * Clinically stable (8) Insulin dependent type 2 diabetes mellitus: Code(s): E11.9 - Type 2 diabetes mellitus without complications; Z79.4 - technician terminal and repeater (current) use of insulin Status: Chronic Assessment and Plan: * Basal and sliding scale insulin * Hole home Novolog 70/30 due to hospitalization with dietary restrictions (9) Transaminitis: Code(s): R74.01 - Elevation of levels of liver transaminase levels Status: Acute Assessment and Plan: * Suspect DICKSON (10) Elevated lactic acid level: Code(s): R79.89 - Other specified abnormal findings of blood chemistry Status: Resolved Assessment and Plan: * Improving (11) Elevated troponin: Code(s): R77.8 - Other specified abnormalities of plasma proteins Status: Resolved Assessment and Plan: * Due to end-stage renal disease Or AF Additional Plan Pt is having poor access I have consulted surgery for femoral line placement, pt ayers
--- NOTE | 2020-07-29 16:06 | PM.IMPN ---
Progress Note: A&P Assessment and Plan (1) Acute cerebrovascular accident (CVA): Code(s): I63.9 - Cerebral infarction, unspecified Status: Acute Assessment and Plan: Right frontoparietal stroke due to thrombosis of right M2 branch Given history of paroxysmal atrial fibrillation this certainly could be cardioembolic PT/OT Much improvement with theraphy Pt tolerates oral pills and purred diet DC back to [facility] in 1-2 days time 07/29/20 16:06 Right frontoparietal stroke due to thrombosis of right M2 branch patient has been participating in physical therapy and able to move will continue PT OT, patient with sick sinus syndrome seen by cardiology patient is not appear candidate for permanent pacemaker however she did have atrial fibrillation with RVR currently in sinus rhythm on p.o. amiodarone and not requiring any beta-usman, patient was seen dialysis is doing much better denies any complaint of chest pain shortness of breath palpitation fever or chills, will continue to monitor discussed with specialist wound care further planning. 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 Pt had dialysis yesterday. (5) Hyperkalemia: Code(s): E87.5 - Hyperkalemia Status: Acute Assessment and Plan: Resolved Hold losartan (6) Essential hypertension: Onset Date: Unknown Code(s): I10 - Essential (primary) hypertension Status: Chronic Assessment and Plan: Blood pressure is running a bit low for acute stroke. Will hold losartan. (7) Diastolic congestive heart failure: Qualifiers: Heart failure chronicity: unspecified Qualified Code(s): I50.30 - Unspecified diastolic (congestive) heart failure Code(s): I50.30 - Unspecified diastolic (congestive) heart failure Status: Chronic Assessment and Plan: Clinically stable (8) Insulin dependent type 2 diabetes mellitus: Code(s): E11.9 - Type 2 diabetes mellitus without complications; Z79.4 - alf (current) use of insulin Status: Chronic Assessment and Plan: Basal and sliding scale insulin Hole home Novolog 70/30 due to hospitalization with dietary restrictions (9) Transaminitis: Code(s): R74.01 - Elevation of levels of liver transaminase levels Status: Acute Assessment and Plan: Suspect DICKSON (10) Elevated lactic acid level: Code(s): R79.89 - Other specified abnormal findings of blood chemistry Status: Resolved Assessment and Plan: Improving (11) Elevated troponin: Code(s): R77.8 - Other specified abnormalities of plasma proteins Status: Resolved Assessment and Plan: Due to end-stage renal disease Or AF Additional Plan Pt is having poor access I have consulted surgery for femoral line placement, pt has dialysis line in situ Subjective Date/time seen: 07/29/20 16:06 Right frontoparietal stroke due to thrombosis of right M2 branch patient has been participating in physical therapy and able to move will continue PT OT, patient with sick sinus syndrome seen by cardiology patient is not appear candidate for permanent pacemaker however she did have atrial fibrillation with RVR currently in sinus rhythm
[2020-07-29] MEDS: ALBUMIN HUMAN 25% 12.5 GM/50ML 50 ML IVPB (16:08)
[2020-07-29 19:04] LABS: Glucose Point of Care 118 mg/dl (65-105)
[2020-07-29] MEDS: INSULIN GLARGINE (*BKC) 100 UNITS/ML 30 UNITS SUB-Q (20:29)
[2020-07-29 20:56] LABS: Glucose Point of Care 163 mg/dl (65-105)
[2020-07-30] VITALS (15 sets, daily range): BP systolic 115–145; BP diastolic 40–88; PULSE 64–83; RESP 12–20; TEMP 35.8–36.6; O2SAT 94–100
[2020-07-30] MEDS: CENTRAL LINE FLUSH 10 ML IV PUSH ×3 (06:13→21:01)
[2020-07-30 06:41] LABS: Partial Thromboplastin Time 37.8 SECONDS (22.3-36.8)
[2020-07-30 06:49] LABS: Anion Gap 5 mmol/L (8-16); Blood Urea Nitrogen 13 mg/dL (7-17); Calcium 7.5 mg/dL (8.4-10.2); Carbon Dioxide 23 mmol/L (22-30); Chloride 116 mmol/L (98-107); Estimated CRCL calculation 18 ml/min; Estimated Glomerular Filt Rate 17; Glucose 109 mg/dL (65-105); Potassium 2.6 mmol/L (3.4-5.0); Sodium 144 mmol/L (137-145); Triglycerides 77 mg/dL (<150)
[2020-07-30 07:48] LABS: Glucose Point of Care 130 mg/dl (65-105)
[2020-07-30] MEDS: TIMOLOL MALEATE 0.5% OP SOLN 5 ML BOTTLE 1 DROP EACH EYE ×2 (08:09→20:21)
[2020-07-30] MEDS: BRIMONIDINE TARTRATE 0.2% OP SOLN 5 ML BTL 1 DROP EACH EYE ×2 (08:09→20:21)
[2020-07-30] MEDS: AMIODARONE HCL 200 MG TABLET PO ×2 (08:10→16:32)
[2020-07-30] MEDS: APIXABAN 2.5 MG TABLET PO ×2 (08:10→20:20)
[2020-07-30] MEDS: POTASSIUM CHLORIDE 20 MEQ TABLET.ER 40 MEQ PO ×2 (08:11→12:23)
[2020-07-30] MEDS: SILVERGEL (ELTA) 45 ML 1 APPLIC TOPICAL (08:12)
--- NOTE | 2020-07-30 08:25 | PCSTNOTE ---
The patient treatment was not able to be completed on 07/29/20 due to therapist unavailable prior to dialysis; then patient in dialysis. Will plan to continue treatment per plan of care.
[2020-07-30 11:47] LABS: Glucose Point of Care 157 mg/dl (65-105)
--- NOTE | 2020-07-30 13:02 | PM.PNNEP ---
Progress Note: A&P Assessment and Plan (1) End stage renal disease: Code(s): N18.6 - End stage renal disease Status: Chronic Assessment and Plan: HD tomorrow (here or at outpatient HD center depending on discharge) and contine T/T/S schedule follow electrolytes, volume status, and clearance (2) Acute cerebrovascular accident (CVA): Code(s): I63.9 - Cerebral infarction, unspecified Status: Acute Assessment and Plan: CT shows right temporoparietal infarct - acutely thrombosed right M2 branch of the superior margin of the sylvian fissure Neurology following continue PT/OT/ST as tolerated (3) Essential hypertension: Onset Date: Unknown Code(s): I10 - Essential (primary) hypertension Status: Chronic Assessment and Plan: reasonable control BP medications with parameters follow trend of hemodynamics (4) Afib: Qualifiers: Atrial fibrillation type: unspecified Qualified Code(s): I48.91 - Unspecified atrial fibrillation Code(s): I48.91 - Unspecified atrial fibrillation Status: Chronic Assessment and Plan: continue rate control strategy on anticoagulation (5) Diabetes mellitus: Onset Date: Unknown Qualifiers: Diabetes mellitus type: type 2 Diabetes mellitus residential insulin use: with residential use Diabetes mellitus complication status: with kidney complications Diabetes mellitus complication detail: with chronic kidney disease Chronic kidney disease stage: stage 3 (moderate) Chronic kidney disease stage 3 subtype: unspecified whether 3a or 3b Qualified Code(s): E11.22 - Type 2 diabetes mellitus with diabetic chronic kidney disease; N18.30 - Chronic kidney disease, stage 3 unspecified; Z79.4 - shelter (current) use of insulin Code(s): E11.9 - Type 2 diabetes mellitus without complications Status: Chronic Assessment and Plan: follow accuchecks glycemic control Will continue to follow. Subjective Date/time seen: 07/30/20 13:02 Tolerated dialysis yesterday without any issues or problems; low K+ noted by AM labs and is being repleted; no other reported issues or problems at this time; possible discharge later today if repeat K+ acceptable. Exam Narrative: Exam Narrative: General: WD/WN AA female in NAD Heart: normal S1 and S2; no rub Lungs: clear to auscultation Abdomen: soft, nontender, nondistended, positive bowel sounds Extremities: no edema present Skin: warm and dry Neuro: left hemiparesis unchanged Objective Data Vital Signs Vital Signs: Vital Signs Temp Pulse Resp BP Pulse Ox 07/30/20 12:00 68 07/30/20 10:00 36.5 C 66 18 118/88 94 07/30/20 08:12 18 94 07/30/20 08:10 72 07/30/20 08:00 66 07/30/20 05:48 36.0 C L 70 12 145/58 H 96 07/30/20 04:00 64 07/30/20 00:14 35.8 C L 70 14 124/46 L 97 07/30/20 00:00 71 07/29/20 21:01 36.2 C L 76 12 114/46 L 96 07/29/20 20:00 76 07/29/20 18:40 36.4 C L 71 18 115/44 L 07/29/20 18:28 62 95/47 L 07/29/20 18:15 64 107/42 L 07/29/20 18:00 66 105/25 L 07/29/20 17:45 65 101/33 L 07/29/20 17:30 65 90/30 L 07/29/20 17:15 67 110/33 L 07/29/20 17:00 67 101/37 L 07/29/20 16:45 66 98/39 L 07/29/20 16:35 65 97/40 L 07/29/20 16:30 61 89/34 L 07/29/20 16:15 58 L 83/37 L 07/29/20 16:08 59 L 87/35 L 07/29/20 16:00 61 89/39 L 07/29/20 15:45 63 134/55 L 07/29/20 15:28 65 148/52 H 07/29/20 15:12 36.4 C 65 16 149/49 H Intake/Output Intake/Output: Intake & Output 07/27/20 07/28/20 07/29/20 07/30/20 23:59 23:59 23:59 23:59 Intake Total 113 458 100 Output Total 0 0 500 0 Balance 113 458 -400 0 Meds/Results Medications: Active Medications Generic Name Dose Route Start Last Admin Trade Name Freq PRN Reason Stop Dose Admin Acetam
--- NOTE | 2020-07-30 14:06 | P.PNIM_ITS ---
Progress Note: A&P Assessment and Plan (1) Acute cerebrovascular accident (CVA): Code(s): I63.9 - Cerebral infarction, unspecified Status: Acute Assessment and Plan: * Right frontoparietal stroke due to thrombosis of right M2 branch * Given history of paroxysmal atrial fibrillation this certainly could be cardioembolic * PT/OT * Much improvement with theraphy * Pt tolerates oral pills and purred diet * DC back to [facility] in 1-2 days time 07/29/20 16:06 Right frontoparietal stroke due to thrombosis of right M2 branch patient has been participating in physical therapy and able to move will continue PT OT, patient with sick sinus syndrome seen by cardiology patient is not appear candidate for permanent pacemaker however she did have atrial fibrillation with RVR currently in sinus rhythm on p.o. amiodarone and not requiring any beta-usman, patient was seen dialysis is doing much better denies any complaint of chest pain shortness of breath palpitation fever or chills, will continue to monitor discussed with health care liaison further planning. 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 Pt had dialysis yesterday. (5) Hyperkalemia: Code(s): E87.5 - Hyperkalemia Status: Acute Assessment and Plan: * Resolved * Hold losartan (6) Essential hypertension: Onset Date: Unknown Code(s): I10 - Essential (primary) hypertension Status: Chronic Assessment and Plan: * Blood pressure is running a bit low for acute stroke. Will hold losartan. (7) Diastolic congestive heart failure: Qualifiers: Heart failure chronicity: unspecified Qualified Code(s): I50.30 - Unspecified diastolic (congestive) heart failure Code(s): I50.30 - Unspecified diastolic (congestive) heart failure Status: Chronic Assessment and Plan: * Clinically stable (8) Insulin dependent type 2 diabetes mellitus: Code(s): E11.9 - Type 2 diabetes mellitus without complications; Z79.4 - exterminator termite (current) use of insulin Status: Chronic Assessment and Plan: * Basal and sliding scale insulin * Hole home Novolog 70/30 due to hospitalization with dietary restrictions (9) Transaminitis: Code(s): R74.01 - Elevation of levels of liver transaminase levels Status: Acute Assessment and Plan: * Suspect DICKSON (10) Elevated lactic acid level: Code(s): R79.89 - Other specified abnormal findings of blood chemistry Status: Resolved Assessment and Plan: * Improving (11) Elevated troponin: Code(s): R77.8 - Other specified abnormalities of plasma proteins Status: Resolved Assessment and Plan: * Due to end-stage renal disease Or AF Additional Plan Pt is having poor access I have consulted surgery for femoral line placement, pt ayers
--- NOTE | 2020-07-30 14:06 | PM.IMPN ---
Progress Note: A&P Assessment and Plan (1) Acute cerebrovascular accident (CVA): Code(s): I63.9 - Cerebral infarction, unspecified Status: Acute Assessment and Plan: Right frontoparietal stroke due to thrombosis of right M2 branch Given history of paroxysmal atrial fibrillation this certainly could be cardioembolic PT/OT Much improvement with theraphy Pt tolerates oral pills and purred diet DC back to [facility] in 1-2 days time 07/29/20 16:06 Right frontoparietal stroke due to thrombosis of right M2 branch patient has been participating in physical therapy and able to move will continue PT OT, patient with sick sinus syndrome seen by cardiology patient is not appear candidate for permanent pacemaker however she did have atrial fibrillation with RVR currently in sinus rhythm on p.o. amiodarone and not requiring any beta-usman, patient was seen dialysis is doing much better denies any complaint of chest pain shortness of breath palpitation fever or chills, will continue to monitor discussed with child care aide further planning. 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 Pt had dialysis yesterday. (5) Hyperkalemia: Code(s): E87.5 - Hyperkalemia Status: Acute Assessment and Plan: Resolved Hold losartan (6) Essential hypertension: Onset Date: Unknown Code(s): I10 - Essential (primary) hypertension Status: Chronic Assessment and Plan: Blood pressure is running a bit low for acute stroke. Will hold losartan. (7) Diastolic congestive heart failure: Qualifiers: Heart failure chronicity: unspecified Qualified Code(s): I50.30 - Unspecified diastolic (congestive) heart failure Code(s): I50.30 - Unspecified diastolic (congestive) heart failure Status: Chronic Assessment and Plan: Clinically stable (8) Insulin dependent type 2 diabetes mellitus: Code(s): E11.9 - Type 2 diabetes mellitus without complications; Z79.4 - skilled nursing (current) use of insulin Status: Chronic Assessment and Plan: Basal and sliding scale insulin Hole home Novolog 70/30 due to hospitalization with dietary restrictions (9) Transaminitis: Code(s): R74.01 - Elevation of levels of liver transaminase levels Status: Acute Assessment and Plan: Suspect DICKSON (10) Elevated lactic acid level: Code(s): R79.89 - Other specified abnormal findings of blood chemistry Status: Resolved Assessment and Plan: Improving (11) Elevated troponin: Code(s): R77.8 - Other specified abnormalities of plasma proteins Status: Resolved Assessment and Plan: Due to end-stage renal disease Or AF Additional Plan Pt is having poor access I have consulted surgery for femoral line placement, pt has dialysis line in situ Subjective Date/time seen: 07/30/20 14:06 07/29 Right frontoparietal stroke due to thrombosis of right M2 branch patient has been participating in physical therapy and able to move will continue PT OT, patient with sick sinus syndrome seen by cardiology patient is not appear candidate for permanent pacemaker however she did have atrial fibrillation with RVR currently in sinus
[2020-07-30 15:20] LABS: Anion Gap 6 mmol/L (8-16); Blood Urea Nitrogen 21 mg/dL (7-17); Calcium 10.5 mg/dL (8.4-10.2); Carbon Dioxide 30 mmol/L (22-30); Chloride 106 mmol/L (98-107); Estimated CRCL calculation 13 ml/min; Estimated Glomerular Filt Rate 11; Glucose 208 mg/dL (65-105); Magnesium 1.8 mg/dL (1.6-2.3); Potassium 4.3 mmol/L (3.4-5.0); Sodium 142 mmol/L (137-145)
[2020-07-30] MEDS: ACETAMINOPHEN 325 MG TABLET 650 MG PO (16:34)
--- NOTE | 2020-07-30 16:35 | PM.PNCARD ---
Progress Note: A&P Assessment and Plan (1) Tachycardia-bradycardia syndrome: Code(s): I49.5 - Sick sinus syndrome Status: Acute Assessment and Plan: Paroxysmal AFib with RVR now in normal sinus rhythm. She remains on PO amiodarone and is not requiring beta blockers at this time. Difficult management. Patient is not a great candidate for permanent pacemaker implantation, will try to avoid. Patient is in sinus rhythm without high-grade AV block or prolonged pauses thus far. (2) Paroxysmal atrial fibrillation: Code(s): I48.0 - Paroxysmal atrial fibrillation Status: Acute Assessment and Plan: She remains in sinus rhythm. Now on PO amiodarine and has been transitioned from heparin to Apixaban. (3) Hypotension: Code(s): I95.9 - Hypotension, unspecified Status: Acute Assessment and Plan: She is normotensive currently and it appears she has not been hypotensive over the past couple of days. Continue to monitor. (4) Acute cerebrovascular accident (CVA): Code(s): I63.9 - Cerebral infarction, unspecified Status: Acute Assessment and Plan: Very unfortunate complication. Right-sided stroke, probably cardioembolic a she had been off her Eliquis for a week for her graft surgery. Apixaban has been resumed. (5) Altered mental status: Code(s): R41.82 - Altered mental status, unspecified Status: Resolved Assessment and Plan: (6) Diastolic congestive heart failure: Qualifiers: Heart failure chronicity: unspecified Qualified Code(s): I50.30 - Unspecified diastolic (congestive) heart failure Code(s): I50.30 - Unspecified diastolic (congestive) heart failure Status: Chronic Assessment and Plan: Chronic diastolic CHF, stable. Volume management with hemodialysis for end-stage renal disease. CPAP as able to tolerate. (7) End-stage renal disease on hemodialysis: Code(s): N18.6 - End stage renal disease; Z99.2 - Dependence on renal dialysis Status: Acute Assessment and Plan: Management per renal team. Avoid excessive hypotension as this will trigger A.Fib with RVR. (8) terminal make up operator current use of amiodarone: Code(s): Z79.899 - Other vermin exterminator (current) drug therapy Status: Acute Assessment and Plan: Thyroid issues not related amiodarone as this predated initiation. Nonetheless, will need to monitor very closely as amiodarone may complicate management. Defer to primary service. Alternatives to Amiodarone limited given circumstances, cardiac arrest while on Sotalol. (9) Hyperthyroidism: Code(s): E05.90 - Thyrotoxicosis, unspecified without thyrotoxic crisis or storm Status: Acute Assessment and Plan: Defer to primary service. Patient had a very low TSH in March 2020 prior to initiating amiodarone. 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 Methimazole. Subjective Date/time seen: 07/30/20 16:35 Interval history: Patient converted to sinus rhythm but has been bradycardic heart rate in the 40s, relatively hypotensive systolic blood pressure 80s to 100 this AM. Patient complains of soreness in her back side denies shortness of breath or chest pain. Sitting in chair time of evaluation. Appears quite fatigued, dysarthric awake and otherwise interactive. 07/27/2020: Patient is lying in bed upon awakening she is pleasant and cooperative. Seems to be speaking easily I do not notice any difficulty with her ability to vocalize. Telemetry demonstrates normal sinus rhythm/sinus bradycardia. Amiodarone is being
[2020-07-30 17:04] LABS: Glucose Point of Care 180 mg/dl (65-105)
[2020-07-30 20:19] LABS: Glucose Point of Care 168 mg/dl (65-105)
[2020-07-30] MEDS: INSULIN GLARGINE (*BKC) 100 UNITS/ML 30 UNITS SUB-Q (20:24)
[2020-07-31] VITALS (24 sets, daily range): BP systolic 128–181; BP diastolic 50–87; PULSE 56–134; RESP 16–21; TEMP 36–37; O2SAT 96–100
[2020-07-31] MEDS: ACETAMINOPHEN 325 MG TABLET 650 MG PO (01:08)
[2020-07-31 04:48] LABS: Basophils Percent Auto 0.1 % (0.2-1.2); Eosinophils Absolute Auto 0.1 K/mm3 (0-0.3); Eosinophils Percent Auto 0.3 % (0-4.4); Hematocrit 36.1 % (37.0-47.0); Hemoglobin 11.9 g/dL (12.0-15.0); Immature Granulocyte Absolute 0.11 K/mm3 (0.00-0.031); Immature Granulocyte Percent A 0.7 % (0-0.5); Lymphocytes Absolute Auto 1.93 K/mm3 (0.9-3.2); Mean Corpuscular Hemoglobin 27.4 pg (26-34); Mean Corpuscular Volume 83.2 fl (80-100); Mean Platelet Volume 9.9 fl (7.4-10.4); Monocytes Absolute Auto 1.5 K/mm3 (0.1-0.6); Monocytes Percent Auto 9.4 % (2.6-8.5); Neutrophils Absolute Auto 12.4 K/mm3 (1.3-6.7); Neutrophils Percent Auto 77.5 % (45.5-73.1); Platelet Count Result 183 k/mm3 (150-375); Red Blood Count 4.34 M/mm3 (4.2-5.4); Red Cell Distribution Width 18.9 % (11.5-14.5)
[2020-07-31] MEDS: CENTRAL LINE FLUSH 10 ML IV PUSH ×3 (05:01→21:06)
[2020-07-31 05:57] LABS: Alanine Aminotransferase 16 U/L (4-35); Albumin Level 2.9 g/dL (3.5-5.1); Alkaline Phosphatase 90 U/L (38-126); Anion Gap 6 mmol/L (8-16); Aspartate Amino Transferase 40 U/L (14-36); Bilirubin,Total 0.6 mg/dL (0.2-1.3); Blood Urea Nitrogen 25 mg/dL (7-17); Calcium 10.8 mg/dL (8.4-10.2); Carbon Dioxide 28 mmol/L (22-30); Chloride 109 mmol/L (98-107); Estimated CRCL calculation 11 ml/min; Estimated Glomerular Filt Rate 10; Glucose 144 mg/dL (65-105); Potassium 4.9 mmol/L (3.4-5.0); Sodium 143 mmol/L (137-145)
[2020-07-31 06:05] LABS: Triglycerides 112 mg/dL (<150)
[2020-07-31] MEDS: TIMOLOL MALEATE 0.5% OP SOLN 5 ML BOTTLE 1 DROP EACH EYE ×2 (07:57→21:06)
[2020-07-31] MEDS: BRIMONIDINE TARTRATE 0.2% OP SOLN 5 ML BTL 1 DROP EACH EYE ×2 (07:57→21:06)
[2020-07-31] MEDS: APIXABAN 2.5 MG TABLET PO ×2 (07:58→21:06)
[2020-07-31] MEDS: SILVERGEL (ELTA) 45 ML 1 APPLIC TOPICAL (07:58)
[2020-07-31] MEDS: AMIODARONE HCL 200 MG TABLET PO ×2 (07:59→17:43)
[2020-07-31 08:10] LABS: Glucose Point of Care 118 mg/dl (65-105)
--- NOTE | 2020-07-31 08:35 | PC.NURSE ---
To dialysis via bed.
--- NOTE | 2020-07-31 10:19 | PCPTNOTE ---
Attempted therapy session, Pt out of room for dialysis. Will attempt again.
--- NOTE | 2020-07-31 12:25 | PC.NURSE ---
Returned from dialysis via bed.
[2020-07-31 12:45] LABS: Glucose Point of Care 90 mg/dl (65-105)
[2020-07-31 13:04] LABS: Hematocrit 38.3 % (37.0-47.0); Hemoglobin 12.5 g/dL (12.0-15.0); Mean Corpuscular HGB Conc 32.6 g/dl (32-36); Mean Corpuscular Hemoglobin 26.9 pg (26-34); Mean Corpuscular Volume 82.5 fl (80-100); Mean Platelet Volume 10.2 fl (7.4-10.4); Platelet Count Result 192 k/mm3 (150-375); Red Blood Count 4.64 M/mm3 (4.2-5.4); Red Cell Distribution Width 19.4 % (11.5-14.5); White Blood Count 14.3 K/mm3 (4.5-10.0)
--- NOTE | 2020-07-31 13:58 | PM.IMPN ---
Progress Note: A&P Assessment and Plan (1) Acute cerebrovascular accident (CVA): Code(s): I63.9 - Cerebral infarction, unspecified Status: Acute Assessment and Plan: Right frontoparietal stroke due to thrombosis of right M2 branch Given history of paroxysmal atrial fibrillation this certainly could be cardioembolic PT/OT Much improvement with theraphy Pt tolerates oral pills and purred diet 07/31/20 13:58 07/29 Right frontoparietal stroke due to thrombosis of right M2 branch patient has been participating in physical therapy and able to move will continue PT OT, patient with sick sinus syndrome seen by cardiology patient is not appear candidate for permanent pacemaker however she did have atrial fibrillation with RVR currently in sinus rhythm on p.o. amiodarone and not requiring any beta-usman, patient was seen dialysis is doing much better denies any complaint of chest pain shortness of breath palpitation fever or chills, will continue to monitor discussed with gericare aide teacher further planning. 07/30 patient is clinically stable, has been working with her mower mechanic to adjust her diet, her potassium is low supplemented, will monitor and communicated with Dr. Larios to watch her potassium during dialysis, patent rate is controlled, will discharge her tomorrow after dialysis. 07/31 today patient appears clinically stable denies any complaint fever or chills however her white counts are elevated, patient does have wound on coccyx concern for any infection will monitor patient 1 more day if white counts trended down there are no other symptom will discharge the patient [facility]pc tomorrow. 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 Pt had dialysis yesterday. (5) Hyperkalemia: Code(s): E87.5 - Hyperkalemia Status: Acute Assessment and Plan: Resolved Hold losartan (6) Essential hypertension: Onset Date: Unknown Code(s): I10 - Essential (primary) hypertension Status: Chronic Assessment and Plan: Blood pressure is running a bit low for acute stroke. Will hold losartan. (7) Diastolic congestive heart failure: Qualifiers: Heart failure chronicity: unspecified Qualified Code(s): I50.30 - Unspecified diastolic (congestive) heart failure Code(s): I50.30 - Unspecified diastolic (congestive) heart failure Status: Chronic Assessment and Plan: Clinically stable (8) Insulin dependent type 2 diabetes mellitus: Code(s): E11.9 - Type 2 diabetes mellitus without complications; Z79.4 - group home (current) use of insulin Status: Chronic Assessment and Plan: Basal and sliding scale insulin [facility] Novolog 70/30 due to hospitalization with dietary restrictions (9) Transaminitis: Code(s): R74.01 - Elevation of levels of liver transaminase levels Status: Acute Assessment and Plan: Suspect DICKSON (10) Elevated lactic acid level: Code(s): R79.89 - Other specified abnormal findings of blood chemistry Status: Resolved Assessment and Plan: Improving (11) Elevated troponin: Code(s): R77.8 - Other specified abnormalities of plasma proteins Status: Resolved
--- NOTE | 2020-07-31 14:21 | PCOTNOTE ---
Attempted therapy session with patient, but patient refused, stating she was worn out from dialysis and her bottom was hurting.
--- NOTE | 2020-07-31 14:33 | PM.PNNEP ---
Progress Note: A&P Assessment and Plan (1) End stage renal disease: Code(s): N18.6 - End stage renal disease Status: Chronic Assessment and Plan: HD treatment today and contine T/T/S schedule follow electrolytes, volume status, and clearance (2) Acute cerebrovascular accident (CVA): Code(s): I63.9 - Cerebral infarction, unspecified Status: Acute Assessment and Plan: CT shows right temporoparietal infarct - acutely thrombosed right M2 branch of the superior margin of the sylvian fissure Neurology following continue PT/OT/ST as tolerated (3) Essential hypertension: Onset Date: Unknown Code(s): I10 - Essential (primary) hypertension Status: Chronic Assessment and Plan: reasonable control BP medications with parameters follow trend of hemodynamics (4) Afib: Qualifiers: Atrial fibrillation type: unspecified Qualified Code(s): I48.91 - Unspecified atrial fibrillation Code(s): I48.91 - Unspecified atrial fibrillation Status: Chronic Assessment and Plan: continue rate control strategy on anticoagulation (5) Diabetes mellitus: Onset Date: Unknown Qualifiers: Chronic kidney disease stage: stage 3 (moderate) Chronic kidney disease stage 3 subtype: unspecified whether 3a or 3b Diabetes mellitus complication detail: with chronic kidney disease Diabetes mellitus complication status: with kidney complications Diabetes mellitus prison insulin use: with terminal press operator use Diabetes mellitus type: type 2 Qualified Code(s): E11.22 - Type 2 diabetes mellitus with diabetic chronic kidney disease; N18.30 - Chronic kidney disease, stage 3 unspecified; Z79.4 - group home (current) use of insulin Code(s): E11.9 - Type 2 diabetes mellitus without complications Status: Chronic Assessment and Plan: follow accuchecks glycemic control Will continue to follow. Subjective Date/time seen: 07/31/20 14:33 Tolerated dialysis treatment earlier today but treatment stopped approximately 45 minutes early as patient was unable to lay flat in bed due to coccyx wound and subsequenty rolled her on side making continuing dialysis treatment difficult despite attempts at adjusting her position. Exam Narrative: Exam Narrative: General: WD/WN AA female in NAD Heart: normal S1 and S2; no rub Lungs: clear to auscultation Abdomen: soft, nontender, nondistended, positive bowel sounds Extremities: no edema present Skin: warm and dry Neuro: left hemiparesis present Objective Data Vital Signs Vital Signs: Vital Signs Temp Pulse Resp BP Pulse Ox 07/31/20 14:00 36.2 C L 104 H 18 154/87 H 100 07/31/20 12:00 120 H 07/31/20 11:50 37.0 C 116 H 20 166/64 H 07/31/20 11:30 69 131/55 L 07/31/20 11:15 68 166/50 H 07/31/20 11:00 66 161/62 H 07/31/20 10:45 63 165/67 H 07/31/20 10:30 61 153/63 H 07/31/20 10:15 63 134/52 L 07/31/20 10:00 64 147/61 H 07/31/20 09:45 60 157/58 H 07/31/20 09:30 58 L 156/55 H 07/31/20 09:15 60 161/61 H 07/31/20 09:00 67 181/67 H 07/31/20 08:45 37.0 C 62 20 180/70 H 07/31/20 08:00 65 20 100 07/31/20 07:59 64 07/31/20 06:00 36.1 C L 73 21 H 128/52 L 100 07/31/20 04:00 58 L 07/31/20 00:00 56 L 07/30/20 22:00 36.3 C L 72 20 133/65 98 07/30/20 20:00 75 07/30/20 17:44 36.6 C 68 18 124/47 L 95 07/30/20 16:32 76 07/30/20 16:00 83 Intake/Output Intake/Output: Intake & Output 07/28/20 07/29/20 07/30/20 07/31/20 23:59 23:59 23:59 23:59 Intake Total 458 100 150 50 Output Total 0 500 0 1103 Balance 458 -400 150 -1053 Meds/Results Medications: Active Medications Generic Name Dose Route Start Last Admin Trade Name Arenq PRN Reason Stop Dose Admin Acetaminophen 650 mg 07/29/20 11:15 07/31/20 01:08 Acetamin
--- NOTE | 2020-07-31 14:44 | PCSTNOTE ---
Attempted to see pt this morning but was unable r/t pt being in dialysis
--- NOTE | 2020-07-31 15:25 | PM.PNCARD ---
Progress Note: A&P Assessment and Plan (1) Tachycardia-bradycardia syndrome: Code(s): I49.5 - Sick sinus syndrome Status: Acute Assessment and Plan: Paroxysmal AFib with RVR now in normal sinus rhythm. She remains on PO amiodarone and is not requiring beta blockers at this time. (2) Paroxysmal atrial fibrillation: Code(s): I48.0 - Paroxysmal atrial fibrillation Status: Acute Assessment and Plan: She was in sinus rhythm earlier in the day but reverted back to atrial fibrillation with RVR following her dialysis treatment today. She is asymptomatic. Could consider IV metoprolol once if she remains tachycardic. (3) Hypotension: Code(s): I95.9 - Hypotension, unspecified Status: Acute Assessment and Plan: She is normotensive currently and it appears she has not been hypotensive over the past couple of days. Continue to monitor. (4) Acute cerebrovascular accident (CVA): Code(s): I63.9 - Cerebral infarction, unspecified Status: Acute Assessment and Plan: Very unfortunate complication. Right-sided stroke, probably cardioembolic a she had been off her Eliquis for a week for her graft surgery. Apixaban has been resumed. (5) Altered mental status: Code(s): R41.82 - Altered mental status, unspecified Status: Resolved Assessment and Plan: (6) Diastolic congestive heart failure: Qualifiers: Heart failure chronicity: unspecified Qualified Code(s): I50.30 - Unspecified diastolic (congestive) heart failure Code(s): I50.30 - Unspecified diastolic (congestive) heart failure Status: Chronic Assessment and Plan: Chronic diastolic CHF, stable. Volume management with hemodialysis for end-stage renal disease. CPAP as able to tolerate. (7) End-stage renal disease on hemodialysis: Code(s): N18.6 - End stage renal disease; Z99.2 - Dependence on renal dialysis Status: Acute Assessment and Plan: Management per renal team. Avoid excessive hypotension as this will trigger A.Fib with RVR. 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 Nonetheless, will need to monitor very closely as amiodarone may complicate management. Defer to primary service. Alternatives to Amiodarone limited given circumstances, cardiac arrest while on Sotalol. (9) Hyperthyroidism: Code(s): E05.90 - Thyrotoxicosis, unspecified without thyrotoxic crisis or storm Status: Acute Assessment and Plan: Defer to primary service. Patient had a very low TSH in March 2020 prior to initiating amiodarone. 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 Methimazole. Subjective Date/time seen: 07/31/20 15:25 Interval history: Patient converted to sinus rhythm but has been bradycardic heart rate in the 40s, relatively hypotensive systolic blood pressure 80s to 100 this AM. Patient complains of soreness in her back side denies shortness of breath or chest pain. Sitting in chair time of evaluation. Appears quite fatigued, dysarthric awake and otherwise interactive. 07/27/2020: Patient is lying in bed upon awakening she is pleasant and cooperative. Seems to be speaking easily I do not notice any difficulty with her ability to vocalize. Telemetry demonstrates normal sinus rhythm/sinus bradycardia. Amiodarone is being continued 07/28/2020: Patient is lying comfortably in bed and is alert and ran
[2020-07-31 18:22] LABS: Glucose Point of Care 117 mg/dl (65-105)
[2020-07-31] MEDS: INSULIN GLARGINE (*BKC) 100 UNITS/ML 30 UNITS SUB-Q (21:11)
[2020-07-31 21:16] LABS: Glucose Point of Care 118 mg/dl (65-105)
[2020-08-01] VITALS (14 sets, daily range): BP systolic 98–150; BP diastolic 58–80; PULSE 74–134; RESP 16–20; TEMP 36.4–36.6; O2SAT 93–98
[2020-08-01] MEDS: ACETAMINOPHEN 325 MG TABLET 650 MG PO (01:42)
[2020-08-01] MEDS: CENTRAL LINE FLUSH 10 ML IV PUSH ×2 (05:31→21:00)
[2020-08-01 06:04] LABS: Partial Thromboplastin Time 37.1 SECONDS (22.3-36.8)
[2020-08-01 06:09] LABS: Anion Gap 6 mmol/L (8-16); Blood Urea Nitrogen 19 mg/dL (7-17); Calcium 10.6 mg/dL (8.4-10.2); Carbon Dioxide 31 mmol/L (22-30); Chloride 106 mmol/L (98-107); Estimated CRCL calculation 14 ml/min; Estimated Glomerular Filt Rate 13; Glucose 77 mg/dL (65-105); Potassium 4.2 mmol/L (3.4-5.0); Sodium 143 mmol/L (137-145)
--- NOTE | 2020-08-01 08:00 | PC.NURSE ---
HR has been in the 120s and 130s throughout night last night. Patient remains asymptomatic. Called Carola Pinedo with cardiology and notified her of same. Orders received to increase Amiodarone to 400 mg po BID. Will continue to monitor.
[2020-08-01 08:28] LABS: Albumin Level 2.9 g/dL (3.5-5.1); Anion Gap 5 mmol/L (8-16); Blood Urea Nitrogen 19 mg/dL (7-17); Calcium 10.9 mg/dL (8.4-10.2); Carbon Dioxide 31 mmol/L (22-30); Chloride 107 mmol/L (98-107); Estimated CRCL calculation 15 ml/min; Estimated Glomerular Filt Rate 13; Glucose 79 mg/dL (65-105); Magnesium 1.9 mg/dL (1.6-2.3); Phosphorus 2.3 mg/dL (2.5-4.5); Potassium 4.2 mmol/L (3.4-5.0); Sodium 143 mmol/L (137-145)
[2020-08-01 08:35] LABS: Glucose Point of Care 57 mg/dl (65-105)
[2020-08-01 08:38] LABS: Hematocrit 37.7 % (37.0-47.0); Hemoglobin 12.2 g/dL (12.0-15.0); Mean Corpuscular HGB Conc 32.4 g/dl (32-36); Mean Corpuscular Hemoglobin 27.1 pg (26-34); Mean Corpuscular Volume 83.6 fl (80-100); Mean Platelet Volume 10.2 fl (7.4-10.4); Platelet Count Result 214 k/mm3 (150-375); Red Blood Count 4.51 M/mm3 (4.2-5.4); Red Cell Distribution Width 19.4 % (11.5-14.5); White Blood Count 13.2 K/mm3 (4.5-10.0)
[2020-08-01] MEDS: APIXABAN 2.5 MG TABLET PO ×2 (08:40→20:59)
[2020-08-01] MEDS: AMIODARONE HCL 200 MG TABLET PO ×2 (08:40→10:45)
[2020-08-01] MEDS: BRIMONIDINE TARTRATE 0.2% OP SOLN 5 ML BTL 1 DROP EACH EYE ×2 (08:41→21:01)
[2020-08-01] MEDS: TIMOLOL MALEATE 0.5% OP SOLN 5 ML BOTTLE 1 DROP EACH EYE ×2 (08:41→21:00)
[2020-08-01] MEDS: SILVERGEL (ELTA) 45 ML 1 APPLIC TOPICAL (10:46)
--- NOTE | 2020-08-01 11:07 | PCNFU ---
Nutrition Follow-Up Complete: Inadequate oral intake related to altered mental status as evidenced by NPO diet, nutrition support order. Goal: Patient to meet estimated nutritional needs. Patient is progressing towards goal. We will continue current goal. Pt current nutrition is Renal Dialysis/Minced and Moist, Level 5 with Mildly Thick liquids, Level 2. Last recorded weight is 99.3 kg. Bowel Motility:+BM 07/30 Labs Reviewed:BUN 19,GFR 13,Alb 2.9 Meds Noted:Lopressor,Lantus,Eliquis Additional Notes: Patient seen today for nutrition follow up. Patient has been downgraded to Minced and Moist, Level 5 and Mildly Thick Liquids, Level 2 with Nepro shakes BID providing an additional 425 kcals and 19 gms protein. 50% of breakfast eaten today. Agree with diet orders. Monitoring: Follow up every 5 days.
[2020-08-01 11:18] LABS: Glucose Point of Care 164 mg/dl (65-105)
--- NOTE | 2020-08-01 11:53 | PM.PNCARD ---
Progress Note: A&P Assessment and Plan (1) Tachycardia-bradycardia syndrome: Code(s): I49.5 - Sick sinus syndrome Status: Acute Assessment and Plan: Paroxysmal AFib with RVR. She reverted back to atrial fibrillation with RVR yesterday following hemodialysis treatment. P.o. amiodarone increased to 400 mg b.i.d. (2) Paroxysmal atrial fibrillation: Code(s): I48.0 - Paroxysmal atrial fibrillation Status: Acute Assessment and Plan: She was in sinus rhythm earlier in the week but reverted back to atrial fibrillation with RVR following her dialysis treatment yesterday. She is asymptomatic. Amiodarone increased to 400 mg b.i.d. (3) Hypotension: Code(s): I95.9 - Hypotension, unspecified Status: Acute Assessment and Plan: She is normotensive currently and it appears she has not been hypotensive over the past couple of days. Continue to monitor. (4) Acute cerebrovascular accident (CVA): Code(s): I63.9 - Cerebral infarction, unspecified Status: Acute Assessment and Plan: Very unfortunate complication. Right-sided stroke, probably cardioembolic a she had been off her Eliquis for a week for her graft surgery. Apixaban has been resumed. (5) Altered mental status: Code(s): R41.82 - Altered mental status, unspecified Status: Resolved Assessment and Plan: (6) Diastolic congestive heart failure: Qualifiers: Heart failure chronicity: unspecified Qualified Code(s): I50.30 - Unspecified diastolic (congestive) heart failure Code(s): I50.30 - Unspecified diastolic (congestive) heart failure Status: Chronic Assessment and Plan: Chronic diastolic CHF, stable. Volume management with hemodialysis for end-stage renal disease. CPAP as able to tolerate. (7) End-stage renal disease on hemodialysis: Code(s): N18.6 - End stage renal disease; Z99.2 - Dependence on renal dialysis Status: Acute Assessment and Plan: Management per renal team. Avoid excessive hypotension as this will trigger A.Fib with RVR. (8) intermediate current use of amiodarone: Code(s): Z79.899 - Other [facility] (current) drug therapy Status: Acute Assessment and Plan: Thyroid issues not related amiodarone as this predated initiation. Nonetheless, will need to monitor very closely as amiodarone may complicate management. Defer to primary service. Alternatives to Amiodarone limited given circumstances, cardiac arrest while on Sotalol. (9) Hyperthyroidism: Code(s): E05.90 - Thyrotoxicosis, unspecified without thyrotoxic crisis or storm Status: Acute Assessment and Plan: Defer to primary service. Patient had a very low TSH in March 2020 prior to initiating amiodarone. 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 Methimazole. Additional Plan 70-year-old lady with paroxysmal atrial fibrillation which seems to have responded well to amiodarone for the most part. Unfortunately she appeared to have had a embolic CVA when a necessary interruption in her anticoagulation occurred to created dialysis fistula. She seems to be stable is maintaining sinus rhythm no additional cardiac recommendations to make today Eric Hall MD [facility] Subjective Date/time seen: 08/01/20 11:53 Interval history: Patient converted to sinus rhythm but has been bradycardic heart rate in the 40s, relatively hypotensive systolic blood pressure 80s to 100 this AM. Patient complains of soreness in her back side denies shortness of breath or chest pain. Sitting in varun
--- NOTE | 2020-08-01 14:17 | PM.PNNEP ---
Progress Note: A&P Assessment and Plan (1) End stage renal disease: Code(s): N18.6 - End stage renal disease Status: Chronic Assessment and Plan: HD treatment due tomorrow. volume status looks okay (2) Acute cerebrovascular accident (CVA): Code(s): I63.9 - Cerebral infarction, unspecified Status: Acute Assessment and Plan: CT shows right temporoparietal infarct - acutely thrombosed right M2 branch of the superior margin of the sylvian fissure Neurology following continue PT/OT/ST as tolerated (3) Essential hypertension: Onset Date: Unknown Code(s): I10 - Essential (primary) hypertension Status: Chronic Assessment and Plan: reasonable control systolic 130 to 150 BP medications with parameters follow trend of hemodynamics (4) Afib: Qualifiers: Atrial fibrillation type: unspecified Qualified Code(s): I48.91 - Unspecified atrial fibrillation Code(s): I48.91 - Unspecified atrial fibrillation Status: Chronic Assessment and Plan: continue rate control strategy pulse a little high just above 100. on anticoagulation (5) Diabetes mellitus: Onset Date: Unknown Qualifiers: Diabetes mellitus type: type 2 Diabetes mellitus care home insulin use: with leather heel breaster use Diabetes mellitus complication status: with kidney complications Diabetes mellitus complication detail: with chronic kidney disease Chronic kidney disease stage: stage 3 (moderate) Chronic kidney disease stage 3 subtype: unspecified whether 3a or 3b Qualified Code(s): E11.22 - Type 2 diabetes mellitus with diabetic chronic kidney disease; N18.30 - Chronic kidney disease, stage 3 unspecified; Z79.4 - [facility] (current) use of insulin Code(s): E11.9 - Type 2 diabetes mellitus without complications Status: Chronic Assessment and Plan: follow accuchecks glycemic control Subjective Date/time seen: 08/01/20 14:17 Interval history: Shaniqua is resting comfortably in bed. lying on her side to stay off her back a bit confused Exam Narrative: Exam Narrative: General: WD/WN AA female in NAD Heart: normal S1 and S2; no rub Lungs: clear Abdomen: soft, nontender, nondistended, positive bowel sounds Extremities: no edema present Skin: no rash Neuro: left hemiparesis present Objective Data Vital Signs Vital Signs: Vital Signs - 24 hr 07/31/20 16:00 07/31/20 17:43 07/31/20 20:00 Temperature Pulse Rate 134 H 120 H 122 H Respiratory Rate Blood Pressure Pulse Oximetry 07/31/20 21:47 08/01/20 00:00 08/01/20 04:00 Temperature 36.9 C Pulse Rate 124 H 127 H 134 H Respiratory Rate 16 Blood Pressure 128/55 L Pulse Oximetry 96 08/01/20 06:00 08/01/20 08:00 08/01/20 08:40 Temperature 36.5 C Pulse Rate 74 132 H 132 H Respiratory Rate 16 Blood Pressure 98/70 L Pulse Oximetry 97 08/01/20 09:16 08/01/20 10:00 08/01/20 10:45 Temperature 36.4 C Pulse Rate 117 H 126 H Respiratory Rate 20 Blood Pressure 130/62 150/66 H Pulse Oximetry 93 Intake/Output Intake/Output: Intake & Output 07/29/20 07/30/20 07/31/20 08/01/20 23:59 23:59 23:59 23:59 Intake Total 100 150 50 340 Output Total 500 0 1103 Balance -400 150 -1053 340 Meds/Results Medications: Active Medications Generic Name Dose Route Start Last Admin Trade Name Freq PRN Reason Stop Dose Admin Acetaminophen 650 mg 07/29/20 11:15 08/01/20 01:42 Acetaminophen 325 Mg Tablet PO 650 mg Q6H PRN Administration Mild Pain (1-3) or Fever Albuterol 2 puff 07/19/20 23:24 Albuterol Sulfate (*Sp) Aerosol 1 Puff INHALATION QID PRN Shortness Of Breath Amiodarone HCl 400 mg 07/22/20 17:00 07/22/20 17:39 Amiodarone Hcl 200 Mg Tablet PO Not Given BID JANKI Apixaban 2.5 mg 07/27/20 21:00 08/01/20 08:40 Apixaban 2.5 Mg Tablet PO 2.5 mg
--- NOTE | 2020-08-01 14:19 | PCOTNOTE ---
Attempted to see patient, however patient refused stating, No, I'm too tired. I'm tired.
--- NOTE | 2020-08-01 15:32 | PM.IMPN ---
Progress Note: A&P Assessment and Plan (1) Acute cerebrovascular accident (CVA): Code(s): I63.9 - Cerebral infarction, unspecified Status: Acute Assessment and Plan: Right frontoparietal stroke due to thrombosis of right M2 branch Given history of paroxysmal atrial fibrillation this certainly could be cardioembolic PT/OT Much improvement with theraphy Pt tolerates oral pills and purred diet 1 day s/p bedside debridement of right plantar and dorsal hallux DFU. 08/01/20 15:35 07/29 Right frontoparietal stroke due to thrombosis of right M2 branch patient has been participating in physical therapy and able to move will continue PT OT, patient with sick sinus syndrome seen by cardiology patient is not appear candidate for permanent pacemaker however she did have atrial fibrillation with RVR currently in sinus rhythm on p.o. amiodarone and not requiring any beta-usman, patient was seen dialysis is doing much better denies any complaint of chest pain shortness of breath palpitation fever or chills, will continue to monitor discussed with healthcare specialist further planning. 07/30 patient is clinically stable, has been working with her dental financial coordinator to adjust her diet, her potassium is low supplemented, will monitor and communicated with Dr. Larios to watch her potassium during dialysis, patent rate is controlled, will discharge her tomorrow after dialysis. 07/31 today patient appears clinically stable denies any complaint fever or chills however her white counts are elevated, patient does have wound on coccyx concern for any infection will monitor patient 1 more day if white counts trended down there are no other symptom will discharge the patient [facility]. 08/01 plan was to discharge the patient today as her white counts were trending down and patient is clinically stable however yesterday patient went into atrial fibrillation with RVR is seen by Cardiology and amiodarone was increased to 400mg b.i.d. from 200 mg b.i.d. will monitor if remains clinically stable rate is controlled may discharge tomorrow after dialysis. 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 Pt had dialysis yesterday. (5) Hyperkalemia: Code(s): E87.5 - Hyperkalemia Status: Acute Assessment and Plan: Resolved Hold losartan (6) Essential hypertension: Onset Date: Unknown Code(s): I10 - Essential (primary) hypertension Status: Chronic Assessment and Plan: Blood pressure is running a bit low for acute stroke. Will hold losartan. (7) Diastolic congestive heart failure: Qualifiers: Heart failure chronicity: unspecified Qualified Code(s): I50.30 - Unspecified diastolic (congestive) heart failure Code(s): I50.30 - Unspecified diastolic (congestive) heart failure Status: Chronic Assessment and Plan: Clinically stable (8) Insulin dependent type 2 diabetes mellitus: Code(s): E11.9 - Type 2 diabetes mellitus without complications; Z79.4 - shelter (current) use of insulin Status: Chronic Assessment and Plan: Basal and sliding scale insulin [facility] Novolog 70/30 due to hospitalization with dietary restrictions (9) Transaminitis:
[2020-08-01 16:48] LABS: Glucose Point of Care 167 mg/dl (65-105)
[2020-08-01] MEDS: AMIODARONE HCL 200 MG TABLET 400 MG PO (17:06)
[2020-08-01] MEDS: INSULIN GLARGINE (*BKC) 100 UNITS/ML 30 UNITS SUB-Q (21:01)
[2020-08-01 21:54] LABS: Glucose Point of Care 202 mg/dl (65-105)
[2020-08-02] VITALS (22 sets, daily range): BP systolic 109–184; BP diastolic 50–79; PULSE 64–78; RESP 16–20; TEMP 36–37.2; O2SAT 96–100
[2020-08-02] MEDS: SILVERGEL (ELTA) 45 ML 1 APPLIC TOPICAL (05:42)
[2020-08-02] MEDS: CENTRAL LINE FLUSH 20 ML IV PUSH (05:42)
[2020-08-02] MEDS: CENTRAL LINE FLUSH 10 ML IV PUSH ×2 (05:43→13:27)
[2020-08-02 06:59] LABS: Hematocrit 36.8 % (37.0-47.0); Hemoglobin 11.9 g/dL (12.0-15.0); Mean Corpuscular HGB Conc 32.3 g/dl (32-36); Mean Corpuscular Hemoglobin 26.9 pg (26-34); Mean Corpuscular Volume 83.3 fl (80-100); Mean Platelet Volume 10.9 fl (7.4-10.4); Platelet Count Result 220 k/mm3 (150-375); Red Blood Count 4.42 M/mm3 (4.2-5.4); Red Cell Distribution Width 19.2 % (11.5-14.5); White Blood Count 17.4 K/mm3 (4.5-10.0)
--- NOTE | 2020-08-02 08:00 | PC.NURSE ---
Pulmicort inhaler empty. Called pharmacy for replacement. Not received prior to dialysis. Will give after dialysis.
[2020-08-02 08:17] LABS: Partial Thromboplastin Time 37.2 SECONDS (22.3-36.8)
[2020-08-02] MEDS: BRIMONIDINE TARTRATE 0.2% OP SOLN 5 ML BTL 1 DROP EACH EYE (08:29)
[2020-08-02] MEDS: AMIODARONE HCL 200 MG TABLET 400 MG PO ×2 (08:29→17:38)
[2020-08-02] MEDS: APIXABAN 2.5 MG TABLET PO (08:29)
[2020-08-02] MEDS: TIMOLOL MALEATE 0.5% OP SOLN 5 ML BOTTLE 1 DROP EACH EYE (08:30)
--- NOTE | 2020-08-02 08:55 | PC.NURSE ---
Patient taken to dialysis via bed and report given to dialysis nurse.
--- NOTE | 2020-08-02 09:13 | PCOTNOTE ---
Patient not available due to dialysis this date.
[2020-08-02 09:22] LABS: Glucose Point of Care 148 mg/dl (65-105)
--- NOTE | 2020-08-02 09:50 | PCSTNOTE ---
Attempted to see pt. this morning. Pt. out of room. Will attempt tomorrow/continue per POC.
--- NOTE | 2020-08-02 10:10 | P.PNNP_ITS ---
Progress Note: A&P Assessment and Plan (1) End stage renal disease: Code(s): N18.6 - End stage renal disease Status: Chronic Assessment and Plan: * HD treatment in process * Blood pressure is doing well with fluid removal. * volume status looks okay (2) Acute cerebrovascular accident (CVA): Code(s): I63.9 - Cerebral infarction, unspecified Status: Acute Assessment and Plan: * CT shows right temporoparietal infarct - acutely thrombosed right M2 branch of the superior margin of the sylvian fissure * Neurology following * continue PT/OT/ST as tolerated (3) Essential hypertension: Onset Date: Unknown Code(s): I10 - Essential (primary) hypertension Status: Chronic Assessment and Plan: * Blood pressure is a little bit high today. * However yesterday it ranged from 98-150. * Today's blood pressure might be fluid. We will take it off and see how her blood pressure is. * BP medications with parameters * follow trend of hemodynamics (4) Afib: Qualifiers: Atrial fibrillation type: unspecified Qualified Code(s): I48.91 - Unspecified atrial fibrillation Code(s): I48.91 - Unspecified atrial fibrillation Status: Chronic Assessment and Plan: * continue rate control strategy * pulse is better today around 70 * on anticoagulation (5) Diabetes mellitus: Onset Date: Unknown Qualifiers: Diabetes mellitus type: type 2 Diabetes mellitus penitentiary insulin use: with penitentiary use Diabetes mellitus complication status: with kidney complications Diabetes mellitus complication detail: with chronic kidney disease Chronic kidney disease stage: stage 3 (moderate) Chronic kidney disease stage 3 subtype: unspecified whether 3a or 3b Qualified Code(s): E11.22 - Type 2 diabetes mellitus with diabetic chronic kidney disease; N18.30 - Chronic kidney disease, stage 3 unspecified; Z79.4 - terminal supervisor (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 The patient is on hemodialysis. She is tolerating this well. Going for about 2 or 3L as tolerated. She was seen at 9:50 a.m. Review of Systems Cardiovascular: Cardiovascular: Reports no additional cardiovascular complaints Respiratory: Respiratory: Reports no additional respiratory complaints Gastrointestinal: Gastrointestinal: Reports no additional gastrointestinal complaints Genitourinary: Genitourinary: Reports no additional female genitourinary complaints Exam Narrative: Exam Narrative: General: WD/WN AA female in NAD Heart: normal S1 and S2; no rub Lungs: clear to auscultation Abdomen: soft, nontender, nondistended, positive bowel sounds Extremities: no edema present Skin: no rash Neuro: left hemiparesis present Objective Data Vital Signs Vital Signs: Vital Signs - 24 hr 08/01/20 10:45 08/01/20 12:00 08/01/20 14:00 Temperature 36.4 C L Pulse Rate 126 H 113 H 124 H Respiratory Rate 18 Blood Pressure 145/80 H Pulse Oximetry 98 08/01/20 16:00 08/01/20 17:06 08/01/20 20:00 Temperature
--- NOTE | 2020-08-02 10:10 | PM.PNNEP ---
Progress Note: A&P Assessment and Plan (1) End stage renal disease: Code(s): N18.6 - End stage renal disease Status: Chronic Assessment and Plan: HD treatment in process Blood pressure is doing well with fluid removal. volume status looks okay (2) Acute cerebrovascular accident (CVA): Code(s): I63.9 - Cerebral infarction, unspecified Status: Acute Assessment and Plan: CT shows right temporoparietal infarct - acutely thrombosed right M2 branch of the superior margin of the sylvian fissure Neurology following continue PT/OT/ST as tolerated (3) Essential hypertension: Onset Date: Unknown Code(s): I10 - Essential (primary) hypertension Status: Chronic Assessment and Plan: Blood pressure is a little bit high today. However yesterday it ranged from 98-150. Today's blood pressure might be fluid. We will take it off and see how her blood pressure is. BP medications with parameters follow trend of hemodynamics (4) Afib: Qualifiers: Atrial fibrillation type: unspecified Qualified Code(s): I48.91 - Unspecified atrial fibrillation Code(s): I48.91 - Unspecified atrial fibrillation Status: Chronic Assessment and Plan: continue rate control strategy pulse is better today around 70 on anticoagulation (5) Diabetes mellitus: Onset Date: Unknown Qualifiers: Diabetes mellitus type: type 2 Diabetes mellitus long term care social worker insulin use: with [facility] use Diabetes mellitus complication status: with kidney complications Diabetes mellitus complication detail: with chronic kidney disease Chronic kidney disease stage: stage 3 (moderate) Chronic kidney disease stage 3 subtype: unspecified whether 3a or 3b Qualified Code(s): E11.22 - Type 2 diabetes mellitus with diabetic chronic kidney disease; N18.30 - Chronic kidney disease, stage 3 unspecified; Z79.4 - intermediate card tender (current) use of insulin Code(s): E11.9 - Type 2 diabetes mellitus without complications Status: Chronic Assessment and Plan: follow accuchecks glycemic control Subjective Date/time seen: 08/02/20 10:10 Interval history: Shaniqua is resting comfortably in bed. The patient is on hemodialysis. She is tolerating this well. Going for about 2 or 3L as tolerated. She was seen at 9:50 a.m. Review of Systems Cardiovascular: Cardiovascular: Reports no additional cardiovascular complaints Respiratory: Respiratory: Reports no additional respiratory complaints Gastrointestinal: Gastrointestinal: Reports no additional gastrointestinal complaints Genitourinary: Genitourinary: Reports no additional female genitourinary complaints Exam Narrative: Exam Narrative: General: WD/WN AA female in NAD Heart: normal S1 and S2; no rub Lungs: clear to auscultation Abdomen: soft, nontender, nondistended, positive bowel sounds Extremities: no edema present Skin: no rash Neuro: left hemiparesis present Objective Data Vital Signs Vital Signs: Vital Signs - 24 hr 08/01/20 10:45 08/01/20 12:00 08/01/20 14:00 Temperature 36.4 C L Pulse Rate 126 H 113 H 124 H Respiratory Rate 18 Blood Pressure 145/80 H Pulse Oximetry 98 08/01/20 16:00 08/01/20 17:06 08/01/20 20:00 Temperature Pulse Rate 114 H 124 H 124 H Respiratory Rate Blood Pressure Pulse Oximetry 08/01/20 21:00 08/02/20 00:00 08/02/20 04:00 Temperature 36.6 C Pulse Rate 125 H 68 64 Respiratory Rate 18 Blood Pressure 104/58 L Pulse Oximetry 98 08/02/20 06:00 08/02/20 08:29 08/02/20 08:45 Temperature 36.4 C 36.7 C Pulse Rate 67 71 70 Respiratory Rate 16 20 Blood Pressure 110/55 L 175/77 H Pulse Oximetry 100 08/02/20 09:00 Temperature Pulse Rate 70 Respiratory Rate Blood Pressure 184/79 H Pulse Oximetry Intake/Output Intake/Output: Intake & Output 07/30/20 07/31/20 08/01/20 05/
--- NOTE | 2020-08-02 12:00 | PC.NURSE ---
Returned from dialysis via bed. Settled in room. Sleeping but arouses easily. No c/o pain. No distress noted.
[2020-08-02 12:57] LABS: Glucose Point of Care 109 mg/dl (65-105)
--- NOTE | 2020-08-02 13:52 | PM.DS ---
DS: Admitting Diagnosis Admitting Diagnosis Admitting Diagnosis: stroke DS: Discharge Diagnosis Discharge Diagnosis (1) Acute cerebrovascular accident (CVA): Code(s): I63.9 - Cerebral infarction, unspecified Status: Acute Assessment and Plan: Right frontoparietal stroke due to thrombosis of right M2 branch Given history of paroxysmal atrial fibrillation this certainly could be cardioembolic PT/OT Much improvement with therapy Pt tolerates oral pills and purred diet s/p bedside debridement of right plantar and dorsal hallux DFU. 08/01/20 15:35 07/29 Right frontoparietal stroke due to thrombosis of right M2 branch patient has been participating in physical therapy and able to move will continue PT OT, patient with sick sinus syndrome seen by cardiology patient is not appear candidate for permanent pacemaker however she did have atrial fibrillation with RVR currently in sinus rhythm on p.o. amiodarone and not requiring any beta-usman, patient was seen dialysis is doing much better denies any complaint of chest pain shortness of breath palpitation fever or chills, will continue to monitor discussed with rn care manager further planning. 07/30 patient is clinically stable, has been working with her senior logistics manager to adjust her diet, her potassium is low supplemented, will monitor and communicated with Dr. Larios to watch her potassium during dialysis, patent rate is controlled, will discharge her tomorrow after dialysis. 07/31 today patient appears clinically stable denies any complaint fever or chills however her white counts are elevated, patient does have wound on coccyx concern for any infection will monitor patient 1 more day if white counts trended down there are no other symptom will discharge the patient custodial tomorrow. 08/01 plan was to discharge the patient today as her white counts were trending down and patient is clinically stable however yesterday patient went into atrial fibrillation with RVR is seen by Cardiology and amiodarone was increased to 400mg b.i.d. from 200 mg b.i.d. 529: Tolkerated dialysis. Rate controlled. [facility]charge to [facility]. 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 Will require f/u labs and titration of methimazole dose (4) End-stage renal disease on hemodialysis: Code(s): N18.6 - End stage renal disease; Z99.2 - Dependence on renal dialysis Status: Acute Assessment and Plan: Nephrology following (5) Hyperkalemia: Code(s): E87.5 - Hyperkalemia Status: Acute Assessment and Plan: Resolved Hold losartan (6) Essential hypertension: Onset Date: Unknown Code(s): I10 - Essential (primary) hypertension Status: Chronic Assessment and Plan: Continue metoprolol (7) Diastolic congestive heart failure: Qualifiers: Heart failure chronicity: unspecified Qualified Code(s): I50.30 - Unspecified diastolic (congestive) heart failure Code(s): I50.30 - Unspecified diastolic (congestive) heart failure Status: Chronic Assessment and Plan: Clinically stable (8) Insulin dependent type 2 diabetes mellitus: Code(s): E11.9 - Type 2 diabetes mellitus without complications; Z79.4 - 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
[2020-08-02] MEDS: NEOMYCIN/POLYMYXIN/BACITRACIN OINTMENT PACKET 1 PACKET (15:00)
[2020-08-02 15:53] LABS: Triglycerides 130 mg/dL (<150)
[2020-08-02 17:26] LABS: Glucose Point of Care 150 mg/dl (65-105)
== END 2020-08-02 19:50 | DRG 64 ==
LOC: ANHED 12:32 → ANHIMU 07-20 06:14 → ANH2MED 07-27 14:47 → ANHIMU 08-05 12:02
PROVIDERS: Emergency Medicine; Internal Medicine; Internal Medicine Cardiovascular Disease; Internal Medicine Nephrology; Physician Assistant; Admitting Provider Family Medicine; Emergency Provider Emergency Medicine; PCP Family Medicine; Visit Provider Family Medicine
DX: I63.311 Cerebral infarction due to thrombosis of right middle cerebral artery (principal); N18.6 End stage renal disease; I50.32 Chronic diastolic (congestive) heart failure; I13.2 Hypertensive heart and chronic kidney disease with heart failure and with stage 5 chronic kidney disease, or end stage renal disease; I48.20 Chronic atrial fibrillation, unspecified; G81.94 Hemiplegia, unspecified affecting left nondominant side; R47.1 Dysarthria and anarthria; R29.810 Facial weakness; I49.5 Sick sinus syndrome; R41.82 Altered mental status, unspecified; Z20.828 Contact with and (suspected) exposure to other viral communicable diseases; E11.42 Type 2 diabetes mellitus with diabetic polyneuropathy; E11.22 Type 2 diabetes mellitus with diabetic chronic kidney disease; G47.33 Obstructive sleep apnea (adult) (pediatric); H40.9 Unspecified glaucoma; M19.90 Unspecified osteoarthritis, unspecified site; K80.20 Calculus of gallbladder without cholecystitis without obstruction; N28.9 Disorder of kidney and ureter, unspecified; I95.9 Hypotension, unspecified; E05.80 Other thyrotoxicosis without thyrotoxic crisis or storm; T46.2X5A Adverse effect of other antidysrhythmic drugs, initial encounter; L89.150 Pressure ulcer of sacral region, unstageable; E87.5 Hyperkalemia; E66.01 Morbid (severe) obesity due to excess calories; Z68.36 Body mass index [BMI] 36.0-36.9, adult; R29.710 NIHSS score 10; Z79.01 Long term (current) use of anticoagulants; Z98.42 Cataract extraction status, left eye; Z98.41 Cataract extraction status, right eye; Z89.422 Acquired absence of other left toe(s); Z79.4 Long term (current) use of insulin
CPT/HCPCS: 36415; 36569; 70450; 70496; 70498; 71045; 76705; 80048; 80053; 80069; 80074; 80076; 81001; 82140; 82948; 83036; 83605; 83735; 84100; 84439; 84443; 84445; 84466; 84478; 84480; 84484; 85025; 85027; 85055; 85610; 85730; 86140; 86376; 86706; 87040; 87340; 92523; 92526; 92610; 92611; 93005; 94660; 96361; 96374; 96375; 97110; 97161; 97166; 97530; 97535; 99285; A9270; C1751; C9803; G0257; J0282; J0610; J1644; J1815; J7030; P9047; Q9967; U0003; U0005